=== PATIENT | female | born 1950 | race Caucasian/White ===

== ENCOUNTER → 2018-09-07 19:46 | Outpatient (CLI) | payer MEDICARE, SELFPAY | PROVIDERS: Family Provider Physician Assistant; PCP Physician Assistant; Visit Provider Physician Assistant | DX: G47.33 Obstructive sleep apnea (adult) (pediatric) (principal); R53.83 Other fatigue | CPT/HCPCS: 95811 ==

== ENCOUNTER 2021-04-06 17:14 | Emergency (ER) | payer MEDICARE, SELFPAY ==
[2021-04-06 17:20] VITALS: BP 181/101; PULSE 108; RESP 18; TEMP 35.9; O2SAT 98; BMI 48.6
--- NOTE | 2021-04-06 17:30 | RAD_ITS ---
STUDY: X-RAY - PELVIS AND LEFT HIP REASON FOR EXAM: Female, 70 years old. pain TECHNIQUE: 3 views of the pelvis and hip. COMPARISON: None. FINDINGS: There is a non-specific bowel gas pattern. Normal visualized soft tissue structures. Normal bilateral iliac wings, sacroiliac joints and visualized sacrum. Normal bilateral superior and inferior pubic rami. Normal pubic symphysis. Normal bilateral ischial tuberosities. Degenerative changes of the right hip. Dislocation of left femoral prosthesis with cephalad migration of femoral component. RAD/HIP, UNI W/ Pelvis 2-3 Views IMPRESSION: Left hip prosthesis dislocation. Electronically Signed: Terry Penn MD ([place]) at 18:44 EST , Service support ,
--- NOTE | 2021-04-06 17:30 | RAD_ITS ---
STUDY: X-RAY - LEFT KNEE REASON FOR EXAM: Female, 70 years old. pain TECHNIQUE: 3 view(s) of the knee. COMPARISON: None. FINDINGS: Normal visualized distal femur. Normal visualized proximal tibia and fibula. Normal proximal tibiofibular articulation. Knee replacement in radiographic alignment. The soft tissue structures are unremarkable. RAD/Knee 3 Views IMPRESSION: Left knee replacement without demonstrated fracture or malalignment. Electronically Signed: Terry Penn MD ([place]) at 18:44 EST , Service support ,
--- NOTE | 2021-04-06 17:45 | EDS_ITS ---
HPI History of Present Illness Chief Complaint: Fall Narrative Narrative: Patient is a 70-year-old female who states that about 1 hour prior to arrival she tripped at home. She states she fell from a standing position and sort of landed on her left side/buttocks region. She denies striking her head or any loss of consciousness or blood thinner use. She states she feels like she dislocated her hip. She states that the left hip was replaced in the early 90s. She states that she has not been able to ambulate or move the left leg since the fall and therefore was brought in by EMS for evaluation. [facility] Medical History Degenerative disc disease Diabetes Fibromyalgia History of alcohol abuse Home Medications ascorbic acid (vitamin C) [Vitamin C] 500 mg PO BIDCM 06/03/13 [History Last Taken 08/28/15] cholecalciferol (vitamin D3) [D3-2000] 2,000 unit PO DAILY 06/03/13 [History Last Taken 08/28/15] cyclobenzaprine 10 mg PO BID PRN PRN 06/03/13 [History Last Taken 08/28/15] ferrous sulfate 325 mg PO BIDCM 06/03/13 [History Last Taken 08/28/15] fluoxetine 40 mg PO DAILY 06/03/13 [History Last Taken 08/28/15] glucosamine BGg-[id number]-owwltsvppe 400 mg PO DAILY 06/03/13 [History Last Taken 08/28/15] meclizine [Antivert] 25 mg PO Q6H PRN PRN 06/03/13 [History Last Taken 08/28/15] pantoprazole 20 mg PO DAILY 06/03/13 [History Last Taken 08/28/15] simvastatin 40 mg PO QHS 06/03/13 [History Last Taken 08/28/15] lidocaine 1 patch TOPICAL DAILY 10/11/13 [History Last Taken 08/28/15] hydrocodone-acetaminophen [Vicodin 5-300 mg Tablet] 1 tab PO BID PRN PRN 08/28/15 [History Last Taken 08/28/15] Allergy/AdvReac Type Severity Reaction Status Date / Time lansoprazole [From Prevacid] Allergy Mild Other Verified 04/06/21 17:16 lamotrigine [From Lamictal] AdvReac Mild confusion Verified 04/06/21 17:16 niacin AdvReac Mild jittery Verified 04/06/21 17:16 fentanyl AdvReac Other Verified 04/06/21 17:17 oxycodone [From OxyContin] AdvReac Nausea/Vom/ Verified 04/06/21 17:17 Diarrhea Surgical History (Updated 04/06/21 @ 17:19 by Padma Lacy) History of left hip replacement Social History Smoking Status: Former smoker ROS ROS ED Constitutional Constitutional ED: Denies chills or fever(s) Eyes Eyes: Denies change in vision ENT ENT ED: Denies sore throat Cardiovascular Cardiovascular: Denies chest pain Respiratory/Chest Respiratory/Chest: Denies cough or dyspnea Gastrointestinal Gastrointestinal: Denies abdominal pain, diarrhea, nausea or vomiting Genitourinary Genitourinary ED: Denies dysuria Musculoskeletal Musculoskeletal: Reports arthralgias; Denies back pain or myalgias Integumentary Denies Abrasions or rash Neurologic Neurologic: Denies headache(s) or paresthesias Hematologic/Lymphatic Hematologic/Lymphatic: Denies easy bleeding or easy bruising EXAM Physical Exam Const Vital Signs: 04/06/21 17:20 04/06/21 21:03 04/06/21 21:31 Temperature 96.7 F L Temperature Source Temporal Pulse Rate 108 H 112 H 106 H Pulse Rate [1 (Initial Baseline)] 112 H Pulse Rate [10] 112 H Pulse Rate [4] 115 H Pulse Rate [5] 105 H Pulse Rate [6] 113 H Pulse Rate [7] 108 H Respiratory Rate 18 18 18 Respiratory Rate [1 (Initial Baseline)] 18 Respiratory Rate [10] 19 H Respiratory Rate [4] 31 H Respiratory Rate [5] 26 H Respiratory Rate [6] 18 Respiratory Rate [7] 13 Blood Pressure 181/101 H 171/107 H 142/103 H Blood Pressure [1 (Initial Baseline)] 171/107 H Blood Pressure [10] 132/87 H Blood Pressure [4] 170/89 H Blood Pressure [5] 156/90 H Blood Pressure [6] 143/78 H Blood Pressure Mean 127 102 Pulse Ox 98 98 96 Oxygen Delivery Method Room Air Room Air Room Air Oxygen Delivery Method [1 (Initial Baseline)] Room Air Oxygen Delivery Method [10] Room Air Oxygen Delivery Method [2] Room Air Oxygen Delivery Method [3] Room Air Oxygen Delivery Method [4] Room Air Oxygen Delivery Method [5] Nasal Cannula Oxygen Delivery Method [6] Room Air Oxygen Delivery Method [7] Room Air Oxygen Delivery Method [8] Room Air Oxygen Delivery Method [9] Room Air Fraction of Inspired Oxygen (FIO2) [5] 2 04/06/21 21:36 Temperature Temperature Source Pulse Rate 107 H Pulse Rate [1 (Initial Baseline)] Pulse Rate [10] Pulse Rate [4] Pulse Rate [5] Pulse Rate [6] Pulse Rate [7] Respiratory Rate 16 Respiratory Rate [1 (Initial Baseline)] Respiratory Rate [10] Respiratory Rate [4] Respiratory Rate [5] Respiratory Rate [6] Respiratory Rate [7] Blood Pressure 133/89 H Blood Pressure [1 (Initial Baseline)] Blood Pressure [10] Blood Pressure [4] Blood Pressure [5] Blood Pressure [6] Blood Pressure Mean 103 Pulse Ox 100 Oxygen Delivery Method Room Air Oxygen Delivery Method [1 (Initial Baseline)] Oxygen Delivery Method [10] Oxygen Delivery Method [2] Oxygen Delivery Method [3] Oxygen Delivery Method [4] Oxygen Delivery Method [5] Oxygen Delivery Method [6] Oxygen Delivery Method [7] Oxygen Delivery Method [8] Oxygen Delivery Method [9] Fraction of Inspired Oxygen (FIO2) [5] Positive well nourished and well developed General Appearance ED: well developed HEENT HEENT Narrative: No signs of depressed or basilar skull fracture Eyes PERRL and EOMs intact bilaterally Neck supple Neck Narrative: No bony deformity or step-off of the cervical spine no midline pain on palpation Chest Wall palpation of chest normal Resp normal respiratory effort and clear to auscultation bilaterally Cardio regular rate and regular rhythm GI normal to inspection, nondistended, normoactive bowel sounds, non-tender, non- distended and no masses Auscultation: normoactive bowel sounds Palpation: soft Extremity Extremity Narrative: Pelvis is stable there is no shortening or external rotation of either lower extremity. Patient has pain on palpation along the lateral aspect of the left hip and over top the left knee. There is no obvious bony deformity or joint effusion. Active and passive range of motion is decreased secondary to pain. Remainder of the exam is normal Neuro oriented x3 and CN's II-XII intact bilaterally Sensorium / Orientation: alert Psych mental status grossly normal Skin no rashes or lesions noted Skin Narrative: No abrasions or ecchymosis noted MDM MDM MDM Narrative Medical decision making narrative: Patient presented to the ER after mechanical fall so there is no need for cardiac or syncope work-up. Exam is concerning for a periprosthetic fracture or dislocation so x-rays were obtained. X-ray showed a left hip dislocation. Therefore patient underwent conscious sedation as documented below. Following this there was resolution of the dislocation. Therefore this time as the dislocation has been resolved she can be discharged and follow with orthopedics on an outpatient basis. Patient underwent conscious sedation with a total of 200 mg of propofol and 5 mg of Versed. Manual traction with external rotation was applied to the left leg and there was spontaneous reduction of the dislocation. Postreduction x-ray did confirm proper alignment. The patient was placed in bilateral Ortho-Glass sleeves as she does not have a knee immobilizer that would fit. After valery lication capillary refill remained less than 3 seconds. Patient tolerated the reduction and application of the splint well without complication. Radiography Diagnostic Testing: Clinical Impression(s) from Imaging Studies Hip/Pelvis X-Ray 04/06/21 17:30 IMPRESSION: Left hip prosthesis dislocation. Electronically Signed: Terry Penn MD ([place]) at 18:44 EST , Service support , Knee X-Ray 04/06/21 17:30 IMPRESSION: Left knee replacement without demonstrated fracture or malalignment. Electronically Signed: Terry Penn MD ([place]) at 18:44 EST , Service support , Hip/Pelvis X-Ray 04/06/21 21:10 IMPRESSION: Persistent left hip dislocation status post total hip arthroplasty. Electronically Signed: Jovon Gonzalez DO at 22:39 EST Tel , Service support , Hip/Pelvis X-Ray 04/06/21 21:24 IMPRESSION: Normal left hip alignment status total hip arthroplasty. Electronically Signed: Jovon Gonzalez DO at 22:41 EST Tel , Service support , Discharge Plan Triage Chief Complaint: Fall Other Complaint: Lower Extremity Injury ED Provider: Luis Colin Dx/Rx/DC Orders Clinical Impression: Dislocation of hip, left, closed Instructions: ED Hip Replace Dislocation Reduc Prescriptions: No Action cyclobenzaprine 10 MG tablet 10 mg PO BID PRN PRN (Reason: FIBROMYALGIA) RF: 0 ascorbic acid (vitamin C) [Vitamin C] 500 MG tablet 500 mg PO BIDCM RF: 0 ferrous sulfate 325 MG tablet 325 mg PO BIDCM RF: 0 fluoxetine 20 MG capsule 40 mg PO DAILY RF: 0 cholecalciferol (vitamin D3) [D3-2000] 2,000 UNIT capsule 2,000 unit PO DAILY RF: 0 simvastatin 40 MG tablet 40 mg PO QHS RF: 0 pantoprazole 20 MG tablet 20 mg PO DAILY RF: 0 meclizine [Antivert] 25 MG tablet 25 mg PO Q6H PRN PRN (Reason: DIZZINESS) RF: 0 glucosamine BFo-gzy-dpaialmsxy 1 EACH tablet 400 mg PO DAILY RF: 0 lidocaine 1 PATCH patch 1 patch topical DAILY RF: 0 hydrocodone-acetaminophen [Vicodin] 1 EACH tablet 1 tab PO BID PRN PRN (Reason: Pain) RF: 0 Primary Care Provider: Luis M Fay Referrals: Luis M Fay MD [Primary Care Provider] - Desmond Ferro DO [STAFF PHYSICIAN] - 1 Week Disposition Disposition: Home, Self Care
[2021-04-06] MEDS: Morphine 4 MG/ML Syringe IV (17:54)
[2021-04-06] MEDS: Ondansetron 4 MG/2 ML Vial IV (17:54)
[2021-04-06 21:03] VITALS: BP 132/87; BP 143/78; BP 156/90; BP 170/89; BP 171/107; PULSE 105; PULSE 108; PULSE 112; PULSE 113; PULSE 115; RESP 13; RESP 18; RESP 19; RESP 26; RESP 31; O2SAT 95; O2SAT 96; O2SAT 97; O2SAT 98
--- NOTE | 2021-04-06 21:10 | RAD_ITS ---
INDICATION: POST REDUCTION EXAMINATION/TECHNIQUE: X-RAY - LEFT XR Hip Unilateral with Pelvis when performed; 1 View 1 VIEWS COMPARISON: 04/06/2021 left hip x-rays at 6:29 PM FINDINGS: SOFT TISSUES: No soft tissue swelling or gas. No radiopaque foreign body. BONES/JOINTS: Left total hip arthroplasty shows left hip dislocation with femoral head component overlying the superior rim of the acetabular component, not significant changed compared to prior exam. Acetabular femoral components are otherwise within normal limits with normal positioning within the acetabulum and proximal femur. There is no fracture. RAD/Hip 1 view with Pelvis IMPRESSION: Persistent left hip dislocation status post total hip arthroplasty. Electronically Signed: Jovon Gonzalez DO at 22:39 EST Tel , Service support ,
--- NOTE | 2021-04-06 21:24 | RAD_ITS ---
INDICATION: post reduction EXAMINATION/TECHNIQUE: X-RAY - LEFT XR Hip Unilateral with Pelvis when performed; 1 View 1 VIEWS COMPARISON: 04/06/2021 left hip x-rays at 9:03 PM FINDINGS: SOFT TISSUES: No soft tissue swelling or gas. No radiopaque foreign body. BONES/JOINTS: Normal femoral acetabular alignment status post total hip arthroplasty. No fracture. No evidence of hardware complication. RAD/Hip 1 view with Pelvis IMPRESSION: Normal left hip alignment status total hip arthroplasty. Electronically Signed: Jovon Gonzalez DO at 22:41 EST Tel , Service support ,
[2021-04-06 21:31] VITALS: BP 132/87; BP 142/103; PULSE 106; RESP 18; RESP 20; O2SAT 96; O2SAT 97
[2021-04-06] MEDS: Midazolam 5 MG/ML Syringe IV (21:34)
[2021-04-06] MEDS: Propofol 200 MG/20 ML Vial IV BOLUS (21:34)
[2021-04-06 21:36] VITALS: BP 133/89; PULSE 107; RESP 16; O2SAT 100
[2021-04-06 23:06] VITALS: BP 156/73; PULSE 82; RESP 16; O2SAT 97
== END 2021-04-06 23:08 | disposition home or self-care (01) ==
PROVIDERS: Emergency Provider Emergency Medicine; PCP Family Medicine
DX: T84.021A Dislocation of internal left hip prosthesis, initial encounter (principal); Y79.2 Prosthetic and other implants, materials and accessory orthopedic devices associated with adverse incidents; E11.9 Type 2 diabetes mellitus without complications; Z79.899 Other long term (current) drug therapy; Z87.891 Personal history of nicotine dependence; Z96.652 Presence of left artificial knee joint; M79.7 Fibromyalgia; W01.0XXA Fall on same level from slipping, tripping and stumbling without subsequent striking against object, initial encounter; Y93.9 Activity, unspecified; Y92.009 Unspecified place in unspecified non-institutional (private) residence as the place of occurrence of the external cause; Y99.9 Unspecified external cause status
CPT/HCPCS: 27265; 73501; 73502; 73562; 96374; 96375; 99152; 99153; 99285; A4216; J2405

== ENCOUNTER 2022-01-30 14:00 | Outpatient (RCR) | payer MEDICARE, SELFPAY | END 2022-02-08 23:59 | LOC: DC 14:00 | PROVIDERS: PCP Family Medicine; Referring Provider Family Medicine; Visit Provider Family Medicine | DX: E11.29 Type 2 diabetes mellitus with other diabetic kidney complication (principal) | CPT/HCPCS: 97802; G0108 ==

== ENCOUNTER 2022-02-25 13:02 | Outpatient (RCR) | payer MEDICARE, SELFPAY | END 2022-03-11 23:59 | LOC: DC 13:02 | PROVIDERS: PCP Family Medicine; Referring Provider Family Medicine; Visit Provider Family Medicine | DX: E11.29 Type 2 diabetes mellitus with other diabetic kidney complication (principal) | CPT/HCPCS: 97803 ==

== ENCOUNTER 2022-04-10 14:00 | Outpatient (RCR) | payer MEDICARE, SELFPAY | END 2022-04-10 23:59 | LOC: DC 14:00 | PROVIDERS: PCP Family Medicine; Referring Provider Family Medicine; Visit Provider Family Medicine | DX: E11.29 Type 2 diabetes mellitus with other diabetic kidney complication (principal) | CPT/HCPCS: 97803; G0108 ==

== ENCOUNTER → 2024-12-02 | Outpatient (CLI) | payer MEDICARE, SELFPAY ==
--- NOTE | 2024-12-02 | LES_PTH ---
PATIENT: YARELI VALDOVINOS LOC: [facility] U#:[id number] AGE/SX: 74/F ROOM: RE12/02/[address]: Dr. Tunde Resendiz MD : 1950 BED: DIS: 12/02/2024 SPEC #: [id number] RECD: 12/03/24 06:08 STATUS: ALIX SHIRAZ #: [id number] SHANIA: 12/02/24 00:[address]: Tunde Resendiz DEPT: SURGICAL PATHOLOGY RECD BY: Mahamed Porras ENTERED: 12/03/24 09:53 SP TYPE: Lesion OTHR DR: Dr. Luis M Fay MD Tissues: A - Skin of forearm, NOS B - Skin of face, NOS C - Skin of face, NOS D - Skin of face, NOS Procedures: Surgery Specimen Level IV HEADER OPERATION: Excision of left cheek, right upper orthodox, right preauricular cheek, left forearm lesion PRE-OP DIAGNOSIS: Lesions of left cheek, right upper orthodox, right preauricular cheek, left forearm TISSUE SUBMITTED: A- Left forearm lesion, B- Right cheek lesion, C- Right upper orthodox lesion, D- Left cheek shave lesion MICROSCOPIC DIAGNOSIS A. Forearm, left, "lesion", excision: - Solar lentigo. B. Cheek, right, "lesion", excision: - Seborrheic keratosis. C. [place], right, upper, "lesion", excision: - Seborrheic keratosis. D. Cheek, left, "lesion", excision: - Actinically damaged skin with seborrheic keratosis and focal basilar pigmentation consistent with solar lentigo. - Negative for malignancy - see note. Note: The block has been stepped through. MICROSCOPIC DESCRIPTION Slides are reviewed. GROSS DESCRIPTION Received in 4 formalin containers labeled with the patient's name and date of . Designated as: A. "Left forearm lesion" is a 0.7 x 0.7 x <0.1 cm ovoid skin shave devoid of orientation. The resection margin is inked black. There is a possible 0.4 x 0.3 cm light brown lesion abutting the peripheral edge. The specimen is trisected and entirely submitted in 1 cassette. B. "Right cheek lesion" is a 1.4 x 0.7 cm alvarez skin ellipse devoid of orientation, excised to a depth of 0.3 cm. The resection margin is inked blue. There is a 0.7 x 0.6 cm alvarez slightly raised alvarez lesion with central, brown discoloration located 0.1 cm from the peripheral edge. The specimen is serially sectioned and entirely submitted in 1 cassette. C. "Right upper orthodox lesion" is a 0.4 x 0.3 x 0.2 cm alvarez and somewhat bosselated skin shave devoid of orientation. The resection margin is inked green. The specimen is bisected and entirely submitted in 1 cassette. D. "Left cheek shave lesion" is a 0.6 x 0.3 x 0.2 cm alvarez to light brown skin shave devoid of orientation. The resection margin is inked orange. The specimen is bisected and entirely submitted in 1 cassette. AK 12/03/2024 CPT:29911b4
--- OUTSIDE RECORDS SUMMARY | 2024-12-03 06:14 | XMS RPT_ITS | CCD ---
Author Organization [facility] Care Team Providers Care Last Putter Away Name Role Phone LUIS M JOHNSON MD Primary Care Physician Luis M Johnson MD Primary Care Provider Luis M Johnson MD Primary Care Provider Luis M Johnson MD Primary Care Provider Luis M Johnson MD Primary Care Provider Luis M Johnson MD Primary Care Provider Michelle ECHOCARDIOGRAPHY TECHNOLOGIST.Teddy AMIN Unavailable Summer Telles PA-C Unavailable Luis M Johnson MD Primary Care Provider Michelle ECHOCARDIOGRAPHY TECHNOLOGIST.Teddy AMIN Unavailable Summer Telles PA-C Unavailable [phone] TEDDY COX Referring Unavailable LUIS M JOHNSON Primary Care Unavailable TEDDY COX Attending Unavailable LUIS M JOHNSON Primary Care Unavailable LUIS M JOHNSON Referring Unavailable LUIS M JOHNSON Primary Care Unavailable LUIS M JOHNSON Referring Unavailable LUIS M JOHNSON Primary Care Unavailable LUIS M JOHNSON Attending Unavailable LUIS M JOHNSON Primary Care Unavailable LUIS M BAEZ Referring Unavailable LUIS M JOHNSON Primary Care Unavailable LUIS M JOHNSON Primary Care Unavailable Dr. Luis M Johnson MD Primary Care Provider Dr. Luis M Johnson MD Referring Provider Dr. Tunde Resendiz MD Attending Provider Luis M Johnson Referring Unavailable Luis M Johnson Primary Care Unavailable Tunde Resendiz Attending Unavailable Allergies Allergy Classification Reported Allergen(s) Allergy Type Date of Onset Reaction(s) Facility Aminoketones (1 source) buPROPion Drug Allergy 5 Intolerance [facility] Anti-Epileptic Agents (1 source) lamoTRIgine Drug Allergy 0 Mental Status Change [facility] Antihistamines (1 source) hydrOXYzine Drug Allergy 1 Mental Status Change [facility] Work Phone: famciclovir (1 source) famciclovir Drug Allergy 2 Rash [facility] Niacin (1 source) Niacin Drug Allergy 6 Other: See Comments [facility] Opioid Agonists (2 sources) fentaNYL Drug Allergy 4 Mental Status Change, Other: See Comments [facility] pregabalin (1 source) pregabalin Drug Allergy 5 Other: See Comments [facility] Proton Pump Inhibitors (1 source) lansoprazole Drug Allergy 5 Unknown [facility] (20 sources) buPROPion; Translations: [BUPROPION HCL] Drug Allergy 5 Intolerance [facility] Work Phone: (20 sources) famciclovir; Translations: [FAMCICLOVIR] Drug Allergy 2 Rash [facility] Work Phone: (20 sources) fentaNYL; Translations: [FENTANYL] Drug Allergy 4 Mental Status Change [facility] Work Phone: (20 sources) hydrOXYzine; Translations: [HYDROXYZINE] Drug Allergy 1 Mental Status Change [facility] Work Phone: (20 sources) lamoTRIgine; Translations: [LAMOTRIGINE] Drug Allergy 0 Mental Status Change [facility] Work Phone: (20 sources) lansoprazole; Translations: [LANSOPRAZOLE] Drug Allergy 5 Unknown [facility] Work Phone: Comment on above: confusion (20 sources) Niacin; Translations: [NIACIN] Drug Allergy 6 Other: See Comments [facility] Work Phone: (20 sources) oxyCODONE; Translations: [OXYCODONE HCL] Drug Allergy 5 Other: See Comments [facility] Work Phone: (20 sources) pregabalin; Translations: [PREGABALIN] Drug Allergy 5 Other: See Comments [facility] Work Phone: (5 sources) oxyCODONE Drug Allergy 1 Nausea/Vom/Diar calixto [facility] (1 source) fentaNYL Drug Allergy 5 [facility] Repository (1 source) lamoTRIgine Drug Allergy 5 [facility] Repository (1 source) lansoprazole Drug Allergy 5 [facility] Rep[facility] (1 source) Niacin Drug Allergy 5 [facility] Repository (1 source) oxyCODONE Drug Allergy 5 [facility] Repository Medications Current Medications Medication Drug Class(es) Dates Sig (Normalized) Sig (Original) acetaminophen 300 mg / HYDROcodone bitartrate 5 mg oral tablet (15 sources) Opioid Agonist Start: 08-28-2015 Hydrocodone-Acetam inophen (Vicodin 5-300 Mg Tablet) 1 EACH tablet Active 1 {tbl} PO TWICE DAILY NEEDED as needed for Pain August 28, 2015 5:06pm Start: 10-11-2013 End: 08-28-2015 Hydrocodone-Acetaminophen (V icodin 5-300 Mg Tablet) 1 EACH tablet Discontinued 1 - 2 {tbl} PO EVERY 4 HOURS NEEDED as needed for Pain October 11, 2013 12:00am August 28, 2015 5:06pm Start: 06-03-2013 End: 06-15-2013 Hydrocodone-Acetaminophen (V icodin 5-300 Mg Tablet) 1 EACH tablet Discontinued 1 {tbl} PO EVERY 4 HOURS NEEDED as needed for Pain June 03, 2013 1:00am June 15, 2013 11:39am [id number] 200 actuat albuterol 0.09 mg/actuat metered dose inhaler (20 sources) beta2-Adrenergic Agonist Start: 11-19-2024 Albut arnoldo Sulfate 90 mcg/actuation HFA aerosol inhaler Active 2 NMA INHALATION EVERY 4 HOURS as needed November 19, 2024 12:00am Start: 01-12-2021 End: 10-19-2024 take 2 puff(s) by inhalation every four hours as needed albuterol HFA (PROVENTIL HFA, VENTOLIN HFA) 90 mcg/actuation inhaler Inhale 2 puffs as instructed every 4 hours as needed. 1 each 1 10/19/2024 Active Comment on above: Inhale 2 Puffs as in structed every 4 hours as needed. amLODIPine 10 mg oral tablet (20 sources) Dihydropyridine Calcium Channel Cole Start: take 1 tablet by mouth once daily Amlodipine 10 mg tablet Active 10 mg PO daily November 19, 2024 12:00am Start: 03-31-2023 End: 01-26-2024 take 1 tablet by mouth once daily amLODIPine (NORVASC) 10 mg tablet Indications: Hypertension, essential Take 1 tablet by mouth once daily. 90 tablet 3 01/26/2024 Active Start: 10-04-2022 End: 03-29-2023 take 1 tablet by mouth once daily amLODIPine (NORVASC) 10 mg tablet Indications: Hypertension, essential Take 1 tablet by mouth once daily. 30 tablet 2 12/27/2022 03/29/2023 Discontinued Start: 07-31-2022 take 1 tablet by nu th once daily amLODIPine (NORVASC) 10 mg tablet Indications: Hypertension, essential Take 1 tablet by mouth once daily. 30 tablet 1 07/31/2022 Active Start: 07-09-2022 take 1 tablet by nu th once daily amLODIPine (NORVASC) 10 mg tablet Indications: Hypertension, essential Take 1 tablet by mouth once daily. 30 tablet 0 07/09/2022 Active Start: 06-11-2022 End: 07-09-2022 take 1 tablet by mouth once daily amLODIPine (NORVASC) 5 mg tablet Indications: Hypertension, essential Take 1 tablet by mouth once daily. 30 tablet 0 06/11/2022 07/09/2022 Discontinued Comment on above: Take 1 tablet by nu th once daily. aspirin 81 mg delayed release oral tablet (20 sources) Platelet Aggregation Inhibitor, Nonsteroidal Anti-inflammatory Drug Start: take 1 tablet by mouth once daily aspirin, enteric coated (ADULT ASPIRIN REGIMEN) 81 mg EC tablet Take 1 tablet by mouth once daily. 08/05/2017 Active Comment on above: Take 1 tablet by nu th once daily. atorvastatin 40 mg oral tablet (20 sources) HMG-CoA Reductase Inhibitor Start: take 1 tablet by mouth once daily Atorvastatin 40 mg tablet Active 40 mg PO daily November 19, 2024 12:00am Start: 10-10-2021 End: 10-26-2024 take 1 tablet by mouth once daily atorvastatin (LIPITOR) 40 mg tablet Take 1 tablet by mouth once daily. 90 tablet 1 10/26/2024 Active Start: 04-06-2021 take 1 tablet by nu th once daily atorvastatin (LIPITOR) 40 mg tablet Take 1 tablet by mouth once daily. 90 tablet 1 04/06/2021 Active Comment on above: Take 1 tablet by nu once daily. busPIRone hydrochloride 15 mg oral tablet (20 sources) Start: 11-19-2024 take 1 tablet by mouth twice daily Buspirone 15 mg tablet Active 15 mg PO TWICE A DAY November 19, 2024 12:00am Start: 10-10-2021 End: 10-26-2024 take 1 tablet by mouth twice daily busPIRone (BUSPAR) 15 mg tablet Take 1 tablet by mouth two times a day. 180 tablet 1 10/26/2024 Active Start: 04-06-2021 take 1 tablet by nu th twice daily busPIRone (BUSPAR) 15 mg tablet Indications: Generalized anxiety disorder Take 1 tablet by mouth twice daily. 180 tablet 1 04/06/2021 Active Comment on above: Take 1 tablet by nu th twice daily. Take 1 tablet by nu th two times a day. cholecalciferol 0.025 mg oral tablet (20 sources) Vitamin D Start: 08-13-19 take 1 tablet by mouth once daily, then take 4 tablets by mouth once daily cholecalciferol (VITAMIN D) 1,000 unit tab tablet Take 1 tablet by mouth once daily. Take 4 tablets daily 08/13/2019 Active Start: 06-03-2013 Cholecalcifero l (Vitamin D3) (D3-2000) 2,000 UNIT capsule Active 2000 U PO DAILY June 03, 2013 1:00am Comment on above: Take 1 tablet by nu th once daily. Take 4 tablets daily chondroitin sulfates 400 mg / glucosamine hydrochloride 500 mg / methylsulfonylmethane 83 mg oral tablet (5 sources) Start: 2013 take 1 tablet by mouth once daily Glucosamine Cpu-Rso-Snjnrsdgbv 1 EACH tablet Active 400 mg PO DAILY June 03, 2013 1:00am COMPOUNDED PRESCRIPTION (20 sources) Start: 2016 COMPOUNDED PRESCRIPTION Indications: Leg swelling Compression stockings, thigh high 15-20mmHg Dx: leg edema 3 Each 1 08/14/2016 Active Comment on above: Compression stocking s, thigh high 15-20mmHg Dx: leg edema cyclobenzaprine hydrochloride 10 mg oral tablet (20 sources) Muscle Relaxant Start: 2013 End: 2024 take 1 tablet by mouth twice daily as needed Cyclobenzaprine 10 MG tablet Active 10 mg PO TWICE DAILY NEEDED as needed for FIBROMYALGIA June 03, 2013 1:00am Comment on above: Take 1 tablet by nu th twice daily as needed. Take 1 tablet by nu th two times a day as needed. doxycycline hyclate 100 mg oral tablet (1 source) Tetracycline-clas s Drug Start: 2024 End: 2024 take 1 tablet by mouth twice daily doxycycline (VIBRA-TABS) 100 mg tablet Take 1 tablet by mouth two times a day for 7 days. 14 tablet 07/03/2024 07/10/2024 Active ferrous sulfate 325 mg oral tablet (5 sources) Start: 2013 take 1 tablet by mouth twice daily at mealtime Ferrous Sulfate 325 MG tablet Active 325 mg PO TWICE DAILY WITH MEALS June 03, 2013 1:00am FLUoxetine 20 mg oral capsule (20 sources) Serotonin Reuptake Inhibitor Start: 2013 End: 2024 take 2 capsules by mouth once daily FLUoxetine (PROZAC) 20 mg capsule Take 2 capsules by mouth once daily. 180 capsule 1 10/26/2024 Active Start: 06-03-2013 take 40 mg by mouth once daily Fluoxetine Active 40 MG PO DAILY June 03, 2013 12:00am Comment on above: Take 2 capsules by m outh once daily. fluticasone propionate 0.05 mg/actuat metered dose nasal spray (20 sources) Corticosteroid Start: 05-21-19 End: 06-11-19 take 2 spray(s) by mouth once daily fluticasone (FLONASE) 50 mcg/actuation nasal spray Indications: Environmental allergies Use 2 Sprays in each nostril once daily. Rinse mouth after use. 1 Each 06/11/2022 Active Comment on above: Use 2 Sprays in each nostril once daily. Rinse mouth after use. glimepiride 4 mg oral tablet (20 sources) Sulfonylurea Start: 11-20-19 take 1 tablet by mouth twice daily Glimepiride 4 mg tablet Active 4 mg PO TWICE A DAY November 19, 2024 12:00am Start: 10-10-2021 End: 10-26-2024 take 1 tablet by mouth twice daily at mealtime glimepiride (AMARYL) 4 mg tablet Take 1 tablet by mouth two times a day with meals. 180 tablet 1 10/26/2024 Active Start: 04-06-2021 take 1 tablet by nu th twice daily at mealtime glimepiride (AMARYL) 4 mg tablet Take 1 tablet by mouth twice daily with meals. 180 tablet 1 04/06/2021 Active Comment on above: Take 1 tablet by nu th twice daily with meals. Take 1 tablet by nu th two times a day with meals. lidocaine 0.05 mg/mg medicated patch (5 sources) Antiarrhythmic, Amide Local Anesthetic Start: 10-11-2013 Lidocaine 1 PATCH patch Active 1 NMA TOPICAL DAILY October 11, 2013 12:00am Start: 10-11-2013 apply 1 dose topically once da br[place] Lidocaine Active 1 PATCH TOPICAL DAILY October 10, 2013 11:00pm lisinopril 30 mg oral tablet (20 sources) Angiotensin Converting Enzyme Inhibitor Start: 11-19-2024 take 1 tablet by mouth once daily Lisinopril 30 mg tablet Active 30 mg PO daily November 19, 2024 12:00am Start: 03-31-2023 End: 01-26-2024 take 1 tablet by mouth once daily lisinopril (ZESTRIL) 30 mg tablet Indications: Hypertension, essential Take 1 tablet by mouth once daily. 90 tablet 3 01/26/2024 Active Start: 09-30-2022 End: 03-29-2023 take 1 tablet by mouth once daily lisinopril (ZESTRIL) 30 mg tablet Indications: Hypertension, essential Take 1 tablet by mouth once daily. 30 tablet 1 01/28/2023 03/29/2023 Discontinued Start: 07-31-2022 take 1 tablet by nu th once daily lisinopril (ZESTRIL) 30 mg tablet Indications: Hypertension, essential Take 1 tablet by mouth once daily. 30 tablet 1 07/31/2022 Active Start: 05-14-2022 take 1 tablet by nu th once daily lisinopril (ZESTRIL,PRINIVIL) 30 mg tablet Indications: Hypertension, essential Take 1 tablet by mouth once daily. 30 tablet 1 05/14/2022 Active Start: 04-12-2022 take 1 tablet by nu th once daily lisinopril (ZESTRIL, PRINIVIL) 20 mg tablet Take 1 tablet by mouth once daily. 90 tablet 1 04/12/2022 Active Comment on above: Take 1 tablet by nu th once daily. meclizine hydrochloride 25 mg oral tablet (20 sources) Antiemetic Start: 06-03-19 14 take 1 tablet by mouth every six hours as needed for dizziness Meclizine (Antivert) 25 MG tablet Active 25 mg PO EVERY 6 HOURS NEEDED as needed for DIZZINESS June 03, 2013 1:00am Comment on above: Take 1 tablet by nu th every 6 hours as needed (dizziness). meloxicam 15 mg oral tablet (20 sources) Nonsteroidal Anti-inflammatory Drug Start: 11-20-19 25 take 1 tablet by mouth once daily Meloxicam 15 mg tablet Active 15 mg PO daily November 19, 2024 12:00am Start: 03-31-2023 End: 01-26-2024 take 1 tablet by mouth once daily at mealtime meloxicam (MOBIC) 15 mg tablet Take 1 tablet by mouth once daily. With food. 90 tablet 3 01/26/2024 Active Start: 09-30-2022 End: 03-29-2023 take 1 tablet by mouth once daily at mealtime meloxicam (MOBIC) 15 mg tablet Take 1 tablet by mouth once daily. With food. 90 tablet 1 09/30/2022 03/29/2023 Discontinued Start: 10-10-2021 End: 03-29-2022 take 1 tablet by mouth once daily at mealtime meloxicam (MOBIC) 15 mg tablet Take 1 tablet by mouth once daily. With food. 90 tablet 1 03/29/2022 Active Comment on above: Take 1 tablet by nu th once daily. With food. 24 hr metFORMIN hydrochloride 500 mg extended release oral tablet (20 sources) Biguanide Start: 11-19-2024 Metformin 500 mg tablet extended release 24 hr Active 1000 mg PO TWICE A DAY November 19, 2024 12:00am Start: 10-10-2021 End: 10-26-2024 take 2 tablets by mouth twice daily metFORMIN ER (GLUCOPHAGE XR) 500 mg 24 hr tablet Take 2 tablets by mouth two times a day. 360 tablet 1 10/26/2024 Active Start: 04-06-2021 take 2 tablets by mo uth twice daily metFORMIN ER (GLUCOPHAGE XR) 500 mg 24 hr tablet Indications: Type 2 diabetes mellitus without complication, without long-term current use of insulin (HCC) Take 2 tablets by mouth twice daily. 360 tablet 1 04/06/2021 Active Comment on above: Take 2 tablets by mo uth twice daily. Take 2 tablets by mo uth two times a day. Multivitamin capsule (20 sources) take 1 capsule by mouth once daily Multivitamin capsule Take 1 capsule by mouth once daily. Active take 1 capsule by mouth once chilo ly Multivitamin capsule Take 1 capsule by mouth once daily. 0 Active Comment on above: Take 1 capsule by mo ut once daily. pantoprazole 20 mg delayed release oral tablet (20 sources) Proton Pump Inhibitor Start: 06-03-19 End: 10-20-19 take 1 tablet by mouth once daily Pantoprazole 20 MG tablet Active 20 mg PO DAILY June 03, 2013 1:00am Comment on above: take 1 tablet daily 1/2 hour before breakfast on an empty stomach pioglitazone 45 mg oral tablet (20 sources) Peroxisome Proliferator Receptor alpha Agonist, Peroxisome Proliferator Receptor gamma Agonist, Thiazolidinedione Start: 10-11-19 End: 11-01-19 take 1 tablet by mouth once daily pioglitazone (ACTOS) 45 mg tablet Take 1 tablet by mouth once daily. 90 tablet 1 10/31/2022 Active Start: 04-06-2021 take 1 tablet by nu th once daily pioglitazone (ACTOS) 45 mg tablet Take 1 tablet by mouth once daily. 90 tablet 1 04/06/2021 Active Comment on above: Take 1 tablet by nu th once daily. simvastatin 40 mg oral tablet (5 sources) HMG-CoA Reductase Inhibitor Start: 4 take 1 tablet by mouth at bedtime Simvastatin 40 MG tablet Active 40 mg PO AT BEDTIME June 03, 2013 1:00am SITagliptin 100 mg oral tablet (20 sources) Dipeptidyl Peptidase 4 Inhibitor Start: 5 take 1 tablet by mouth once daily Sitagliptin Phosphate (Januvia) 100 mg tablet Active 100 mg PO daily November 19, 2024 12:00am Start: 10-21-2023 End: 10-19-2024 take 1 tablet by mouth once daily SITagliptin phosphate (JANUVIA) 100 mg tablet Take 1 tablet by mouth once daily. 90 tablet 1 10/19/2024 Active vitamin b12 0.5 mg oral tablet (1 source) Vitamin B12 Start: 10-26-2024 take 1 tablet by mouth once daily cyanocobalamin (B-12 DOTS) 500 mcg tablet Take 1 tablet by mouth once daily. 10/26/2024 Active Completed/Discontinued Medications Medication Drug Class(es) Dates Sig (Normalized) Sig (Original) ascorbic acid 1000 mg oral tablet (20 sources) Vitamin C Start: 08-13-2019 End: 10-17-2023 take 1 tablet by mouth once daily Ascorbic Acid (VITAMIN C) 1,000 mg tablet Take 1 tablet by mouth once daily. 0 08/13/2019 10/17/2023 Discontinued (Discontinued by Patient) Start: 06-03-2013 [facility] Ascorbic Acid (Vitamin C) (Vitamin C) 500 MG tablet Active 500 mg PO TWICE DAILY WITH MEALS June 03, 2013 1:00am Comment on above: Take 1 tablet by nu once daily. bifidobacterium bifidum [id number] unt / bifidobacterium longum [id number] unt oral capsule (20 sources) Start: 019 End: 024 take 1 capsule by mouth once daily bifidobacteri bifid.and longum (FLORAJEN BIFIDOBLEND) 460 mg (9-1 bill.cell) cap Indications: Acute otitis media, left Take 1 capsule by mouth once daily. 30 capsule 1 04/12/2019 10/17/2023 Discontinued (Discontinued by Patient) Comment on above: Take 1 capsule by mo [facility] once daily. 24 hr nicotine 0.583 mg/hr transdermal system (5 sources) Cholinergic Nicotinic Agonist Start: 014 End: 014 apply 14 mg transdermal route at bedtime Nicotine 14 MG patch Discontinued 14 mg TRANSDERM. AT BEDTIME June 03, 2013 1:00am June 15, 2013 11:38am omega-3 fatty acids 1,000 mg cap (20 sources) Start: 017 End: 024 take 2 capsules by mouth once daily omega-3 fatty acids 1,000 mg cap Take 2 capsules by mouth once daily. 0 10/25/2016 04/19/2024 Discontinued Start: 10-25-2016 take 2 capsules by m outh once daily omega-3 fatty acids 1,000 mg cap Take 2 capsules by mouth once daily. 0 10/25/2016 Active Comment on above: Take 2 capsules by m outh once daily. abuse-deterrent 12 hr oxyCODONE hydrochloride 20 mg extended release oral tablet (5 sources) Opioid Agonist Start: 4 End: 4 take 1 tablet by mouth every twelve hours Oxycodone (Oxycontin) 20 MG tablet Discontinued 20 mg PO Q12H June 03, 2013 1:00am June 15, 2013 11:37am Problems Active Problems Problem Classification Problem Date Documented Date Episodic/Chronic Adjustment disorders (20 sources) Adjustment disorder; Translations: [Adjustment disorder, unspecified] Onset: 10-29-2011 10-02-2016 Chronic Administrative/social admission (20 sources) Advance directive discussed with patient; Translations: [Other specified counseling] Onset: 10-10-2021 10-10-2021 Episodic Alcohol-related disorders (20 sources) Alcohol dependence; Translations: [Alcohol dependence, in remission] Onset: 10-02-2016 10-02-2016 Chronic Allergic reactions (1 source) Environmental allergy; Translations: [Other allergy status, other than to drugs and biological substances] Episodic Anxiety disorders (20 sources) Generalized anxiety disorder; Translations: [Generalized anxiety disorder] Onset: 03-13-2006 10-02-2016 Chronic Diabetes mellitus with complications (20 sources) Type 2 diabetes mellitus; Translations: [Type 2 diabetes mellitus with other diabetic kidney complication] Onset: 03-01-2015 Resolved: 05-28-2015 04-06-2021 Chronic Diabetes mellitus without complication (1 source) Type 2 diabetes mellitus without complications; Translations: [Diabetic eye exam (HCC)] Onset: 11-07-2023 Chronic Disorders of lipid metabolism (20 sources) Mixed hyperlipidemia; Translations: [Mixed hyperlipidemia] Onset: 02-12-2005 10-02-2016 Chronic Esophageal disorders (20 sources) Gastroesophageal reflux disease without esophagitis; Translations: [Gastro-esophageal reflux disease without esophagitis] Onset: 10-02-2016 10-02-2016 Chronic Essential hypertension (20 sources) Essential hypertension; Translations: [Essential (primary) hypertension] Onset: 04-12-2022 Chronic Glaucoma (20 sources) Glaucoma; Translations: [Unspecified glaucoma] 11-22-2019 Chronic Immunizations and screening for infectious disease (2 sources) Vaccination needed; Translations: [Encounter for immunization] Onset: 10-19-2024 10-19-2024 Episodic Joint disorders and dislocations; trauma-related (5 sources) Closed traumatic dislocation of hip; Translations: [Unspecified dislocation of left hip, initial encounter] 04-14-2021 Episodic Miscellaneous mental health disorders (1 source) Psychogenic overeating; 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 Mood disorders (20 sources) Recurrent major depression in partial remission; Translations: [Major depressive disorder, recurrent, in partial remission] Onset: 05-30-2005 10-02-2016 Chronic Neoplasms of unspecified nature or uncertain behavior (7 sources) Neoplasm of uncertain behavior of skin of face; Translations: [Neoplasm of uncertain behavior of skin] Onset: 10-19-2024 10-20-2024 Episodic Osteoarthritis (20 sources) Arthritis of right knee; Translations: [Unilateral primary osteoarthritis, right knee] Onset: 12-23-2012 10-02-2016 Chronic Other bone disease and musculoskeletal deformities (1 source) Other specified disorders of bone density and structure, unspecified site; Translations: [Osteopenia, senile] Onset: 10-19-2024 Episodic Other circulatory disease (1 source) Elevated blood-pressure reading without diagnosis of hypertension; Translations: [Elevated blood-pressure reading, without diagnosis of hypertension] Episodic Other diseases of veins and lymphatics (20 sources) Stasis dermatitis of right lower extremity due to peripheral venous hypertension; Translations: [Chronic venous hypertension (idiopathic) with inflammation of right lower extremity] Onset: 04-02-2016 10-02-2016 Chronic Other lower respiratory disease (2 sources) Cough; Translations: [Acute cough] 07-03-2024 Episodic Other nervous system disorders (20 sources) Chronic pain syndrome; Translations: [Chronic pain syndrome] Onset: 11-26-2015 11-22-2019 Chronic Other nervous system disorders (1 source) Chronic pain syndrome; Translations: [Chronic pain syndrome] Onset: 11-22-2019 Chronic Other non-traumatic joint disorders (10 sources) Shoulder pain; Translations: [Pain in right shoulder] Onset: 10-10-2021 10-10-2021 Episodic Other non-traumatic joint disorders (3 sources) Pain in right hip joint; Translations: [Pain in right hip] Episodic Other nutritional; endocrine; and metabolic disorders (20 sources) Body mass index 40+ - severely obese; Translations: [Morbid (severe) obesity due to excess calories] Onset: 10-02-2016 04-03-2021 Chronic Other nutritional; endocrine; and metabolic disorders (10 sources) Morbid obesity; Translations: [Morbid (severe) obesity due to excess calories] Onset: 03-28-2023 03-17-2023 Chronic Other nutritional; endocrine; and metabolic disorders (3 sources) Hypercalcemia; Translations: [Hypercalcemia] 03-18-2023 Chronic Other nutritional; endocrine; and metabolic disorders (1 source) Severe obesity; Translations: [Class 3 severe obesity with body mass index (BMI) of 40.0 to 44.9 in adult, unspecified obesity type, unspecified whether serious comorbidity present (HCC)] 04-19-2024 Chronic Other nutritional; endocrine; and metabolic disorders (2 sources) Morbid (severe) obesity due to excess calories; Translations: [Morbid obesity with body mass index (BMI) of 45.0 to 49.9 in adult (HCC)] Onset: 04-03-2021 Chronic Other nutritional; endocrine; and metabolic disorders (1 source) Body mass index (BMI) 45.0-49.9, adult; Translations: [Morbid obesity with body mass index (BMI) of 45.0 to 49.9 in adult (HCC)] Onset: 04-03-2021 Chronic Other nutritional; endocrine; and metabolic disorders (1 source) Body mass index (BMI) 40.0-44.9, adult; Translations: [Class 3 severe obesity with body mass index (BMI) of 40.0 to 44.9 in adult, unspecified obesity type, unspecified whether serious comorbidity present (HCC)] Onset: 04-19-2024 Chronic Other nutritional; endocrine; and metabolic disorders (1 source) Hypercalcemia; Translations: [Hypercalcemia] Onset: 11-07-2023 Chronic Other upper respiratory infections (1 source) Chronic sinusitis; Translations: [Chronic sinusitis, unspecified] 07-03-2024 Chronic Other upper respiratory infections (1 source) Sore throat symptom; Translations: [Acute pharyngitis, unspecified] 07-03-2024 Episodic Residual codes; unclassified (20 sources) Obstructive sleep apnea syndrome; Translations: [Obstructive sleep apnea (adult) (pediatric)] Onset: 07-04-2010 05-07-2021 Chronic Residual codes; unclassified (1 source) Obstructive sleep apnea (adult) (pediatric); Translations: [WHIT (obstructive sleep apnea)] Onset: 05-07-2021 Chronic Spondylosis; intervertebral disc disorders; other back problems (20 sources) Degeneration of lumbar intervertebral disc; Translations: [Other intervertebral disc degeneration, lumbar region] Onset: 07-26-2014 10-02-2016 Chronic Unclassified (1 source) APPOINTMENT CANCELLED 11-27-2022 Unclassified (1 source) Acute cough; Translations: [Acute cough] Onset: 07-03-2024 Unclassified (1 source) Class 3 severe obesity with body mass index (BMI) of 40.0 to 44.9 in adult, unspecified obesity type, unspecified whether serious comorbidity present (HCC); Translations: [Class 3 severe obesity with body mass index (BMI) of 40.0 to 44.9 in adult, unspecified obesity type, unspecified whether serious comorbidity present (HCC)] Onset: 04-19-2024 Unclassified (2 sources) Neoplasm Unclassified (4 sources) D49.9 - Neoplasm of unspecified behavior of unspecified site Past or Other Problems Problem Classification Problem Date Documented Da te Episodic/Chronic Conditions associated with dizziness or vertigo (20 sources) Benign paroxysmal positional vertigo; Translations: [Benign paroxysmal vertigo, unspecified ear] Onset: 11-22-2019 11-22-2019 Episodic Genitourinary symptoms and ill-defined conditions (1 source) Proteinuria, unspecified; Translations: [Type 2 diabetes mellitus with diabetic microalbuminuria, unspecified whether prison insulin use (HCC)] Onset: 04-06-2021 Episodic Nutritional deficiencies (20 sources) Serum vitamin B12 low; Translations: [Deficiency of other specified B group vitamins] Onset: 10-10-2021 10-10-2021 Episodic Other aftercare (20 sources) Patient encounter status; Translations: [Other long term care social worker (current) drug therapy] Onset: 08-05-2017 06-02-2018 Episodic Other aftercare (1 source) Other prison (current) drug therapy; Translations: [Medication management] Onset: 06-02-2018 Episodic Other and unspecified benign neoplasm (20 sources) History of polyp of colon; Translations: [Personal history of colonic polyps] Onset: 08-19-2018 11-29-2020 Episodic Other bone disease and musculoskeletal deformities (20 sources) Disorder of skeletal system; Translations: [Disorder of bone, unspecified] Onset: 06-07-2008 10-02-2016 Episodic Other bone disease and musculoskeletal deformities (20 sources) Senile osteopenia; Translations: [Other specified disorders of bone density and structure, unspecified site] Onset: 06-07-2008 10-17-2023 Episodic Other connective tissue disease (20 sources) Fibromyalgia; Translations: [Fibromyalgia] Onset: 06-06-2009 07-25-2020 Episodic Other connective tissue disease (20 sources) Pain in left thumb; Translations: [Pain in left finger(s)] Onset: 04-06-2021 04-06-2021 Episodic Other connective tissue disease (20 sources) Pain of left hand; Translations: [Pain in left hand] Onset: 10-10-2021 10-10-2021 Episodic Other connective tissue disease (20 sources) Trochanteric bursitis of left hip; Translations: [Trochanteric bursitis, left hip] Onset: 03-28-2023 Resolved: 10-19-2024 03-17-2023 Episodic Other connective tissue disease (1 source) Fibromyalgia; Translations: [Fibromyalgia] Onset: 07-25-2020 Episodic Other non-traumatic joint disorders (20 sources) Bilateral chronic pain of upper limbs; Translations: [Pain in right shoulder] Onset: 10-10-2021 11-04-2021 Episodic Other screening for suspected conditions (not mental disorders or infectious disease) (4 sources) Mammography abnormal; Translations: [Other abnormal and inconclusive findings on diagnostic imaging of breast] Onset: 08-05-2017 03-21-2023 Episodic Other skin disorders (20 sources) Foot callus; Translations: [Corns and callosities] Onset: 11-29-2020 11-29-2020 Episodic Other skin disorders (1 source) Corns and callosities; Translations: [Foot callus] Onset: 11-29-2020 Episodic Residual codes; unclassified (20 sources) Family history of cancer of colon; Translations: [Family history of malignant neoplasm of digestive organs] Onset: 08-05-2017 08-05-2017 Episodic Screening and history of mental health and substance abuse codes (20 sources) Ex-smoker; Translations: [Personal history of nicotine dependence] Onset: 03-17-2019 03-17-2019 Episodic Spondylosis; intervertebral disc disorders; other back problems (20 sources) Low back pain; Translations: [Lumbago] Onset: 05-19-2015 10-02-2016 Episodic Sprains and strains (20 sources) Sprain of sacroiliac region; Translations: [Strain of muscle, fascia and tendon of lower back, initial encounter] Onset: 08-27-2013 10-02-2016 Episodic Results Test Name Value Interpretation Reference Range Facility Plastic Surgery Visit Report on 11-19-2024 Plastic Surgery Visit Report [facility] Plastic Reconstructive Surgery [address], [address] [place] [address] OFFICE VISIT Date of Service: 11/19/24 MR#: [id number] Acct: [id number] Name: BEVERLY GIVENS Rep #: [id number] : 1950 Provider: Dr. Tunde Resendiz MD Age/Sex: 74/F Location: [facility] Status: Signed Intake Vital Signs 3 04/10/22 16:26 11/19/24 13:25 Height 5 ft 6 in 56 ft Weight: 282 lb BMI 0.4 BP 113/68 Position Sitting Respiration 18 Pulse 118 H Temp 97.8 F Temp Source Oral Pulse Oximetry (%) 97 Oxygen Delivery Method room air Intake Visit Reasons: NEOPLASM R EAR Chief Complaint: neoplasm right taoism, right cheek, and left cheek area Is patient in pain?: Yes (5/10) Allergies lansoprazole (From Prevacid) Allergy (Mild, Verified 11/19/24 13:26) Other lamotrigine (From Lamictal) Adverse Reaction (Mild, Verified 11/19/24 13:26) confusion niacin Adverse Reaction (Mild, Verified 11/19/24 13:26) jittery fentanyl Adverse Reaction (Verified 11/19/24 13:26) Other oxycodone (From OxyContin) Adverse Reaction (Verified 11/19/24 13:26) Nausea/Vom/Diarrhea Medications 3 ???Medication ???Instructions ???Recorded ???Confirmed ???Type ascorbic acid (vitamin C) 500 mg 500 mg PO BIDCM 06/03/13 08/28/15 History tablet (Vitamin C) cholecalciferol (vitamin D3) 50 2,000 unit PO DAILY 06/03/1308/27 History mcg (2,000 unit) capsule (D3-2000) cyclobenzaprine 10 mg tablet 10 mg PO BID PRN PRN FIBROMYALGIA 06/03/13 08/28/15 History ferrous sulfate 325 mg (65 mg 325 mg PO BIDCM 06/03/13 08/28/15 History iron) tablet fluoxetine 20 mg capsule 40 mg PO DAILY 06/03/13 08/28/15 H istory glucosamine HCl 500 mg-msm 83 400 mg PO DAILY 06/03/13 08/28/15 History mg-chondroitin 400 mg tablet meclizine 25 mg tablet (Antivert) 25 mg PO Q6H PRN PRN DIZZINESS 08/28/15 History pantoprazole 20 mg tablet,delayed 20 mg PO DAILY 06/03/13 08/28/15 History release simvastatin 40 mg tablet 40 mg PO QHS 06/03/13 08/28/15 His tory lidocaine 5 % topical patch 1 patch topical DAILY 10/11/13 History hydrocodone 5 mg-acetaminophen 300 1 tab PO BID PRN PRN Pain 08/28/15 History mg tablet (Vicodin) albuterol sulfate 90 mcg/actuation 2 puff inhalation Q4 PRN 5 11/19/24 History aerosol inhaler amlodipine 10 mg tablet 10 mg PO QDAY 11/19/24 11/19/24 Hi story atorvastatin 40 mg tablet 40 mg PO QDAY 11/19/24 11/19/24 Hi story buspirone 15 mg tablet 15 mg PO BID 11/19/24 11/19/24 His tory glimepiride 4 mg tablet 4 mg PO BID 11/19/24 11/19/24 Hist ory lisinopril 30 mg tablet 30 mg PO QDAY 11/19/24 11/19/24 Hi story meloxicam 15 mg tablet 15 mg PO QDAY 11/19/24 11/19/24 Hi story metformin 500 mg tablet,extended 1,000 mg PO BID 11/19/24 11/19/24 History release 24 hr sitagliptin phosphate 100 mg 100 mg PO QDAY 11/19/24 11/19/24 H istory tablet (Januvia) Have you fallen in the past year?: No Nurse's Note: pt here for eval of susupicious lesion on right cheek, right taoism and left cheek PFSH Medical History Ankle fracture GERD (gastroesophageal reflux disease) High cholesterol Osteoarthritis Glaucoma Hypertension Depression Carpal tunnel syndrome Cataracts, bilateral Bone fracture Back problem Arthritis Allergies Degenerative disc disease Fibromyalgia Diabetes History of alcohol abuse Surgical History H/O: hysterectomy History of left hip replacement Family History Other Anemia Angina at rest Arthritis Breast cancer Cancer Depression Diabetes High cholesterol Hypertension Melanoma Social History Smoking Status: Former smoker alcohol intake: former additional social history: pt denies vaping, denies marijuana Does use edibles, denies blood clots/disorder HPI NEOPLASM R EAR Details: The patient is a 74-year-old female presenting with skin lesions for evaluation. She reports a longstanding pigmented lesion on her left cheek, believed to be an age spot, and a changing pigmented lesion on the right preauricular cheek, which has darkened over six months. Additionally, there is a lesion on the right upper taoism, described as pearly, indurated, and red, measuring 0.5 x 0.5 cm. The patient initially attributed these lesions to the use of her CPAP machine. The patient has Type 2 Diabetes Mellitus with an A1c of 7, aiming for 6.8 by April. She denies bleeding or clotting disorders and has no cervical lymphadenopathy. She quit smoking seven to eight (more content not included)... Normal [facility] ALBUMIN/CREATININE RATIO, UR INEon 10-22-2024 Albumin DL <= 20 mg/L (U) [Mass/Vol] 19.8 mg/L Normal [facility] Comment on above: Order Comment: Speci men Type: URINE SPECIMENOrdering Facility: [facility] Address: [address] [place] [address] Performed By: #### U ACR ####[facility] LABCLIA [id number] [place] [address] [place] Albumin/Creatinine (U) [Mass ratio] 21 mg/g Normal <30 [facility] Comment on above: Order Comment: Speci men Type: URINE SPECIMENOrdering Facility: [facility] Address: [address] [place] [address] Result Comment: Adul t Male and Female Nephrotic Criteria: <30 mg/g is considered normal to mildly increased 30-300 mg/g is considered moderately increased >300 mg/g is considered severely increased KDIGO. (2013). KDIGO 2012 Clinical Practice Guideline for the Evaluation and Management of Chronic Kidney Disease. Official Journal of the International Society of Nephrology, 3(1), 1-150. Performed By: #### U ACR ####[facility] LABIA [id number] [place] [id number] [place] Creatinine (U) [Mass/Vol] 94.6 mg/dL Normal 20.0-300.0 [facility] Comment on above: Order Comment: Speci men Type: URINE SPECIMENOrdering Facility: [facility] Address: [address] [place] [id number] Performed By: #### U ACR ####[facility] LABCLIA [id number] [address] [address] [place] Hemoccult Stl Ql IAon 2024 Lower GI hemoglobin IA Ql (Stl) Negative Normal Negative [facility] Comment on above: Order Comment: Speci men Type: STOOL SPECIMENOrdering Facility: [facility] Address: [address] [place] [address] Performed By: #### 2 9771-3 ####[facility] LABCLIA [id number] [address] [place] [address] [place] Urinalysis complete panel (U )on 10-22-2024 Bacteria LM.HPF (Urine sed) [#/Area] Negative Normal Negative [facility] Comment on above: Order Comment: Speci men Type: URINE SPECIMENOrdering Facility: [facility] Address: [address] [place] [address] Performed By: #### 2 4356-8 ####[facility] LABCLIA [id number] [address], [facility]95 [place] Bilirubin Ql (U) Negative Normal Negative [facility] Comment on above: Order Comment: Speci men Type: URINE SPECIMENOrdering Facility: [facility] Address: [address] [place] [address] Performed By: #### 2 4356-8 ####[facility] LABCLIA [id number] [address], [facility]95 [place] Clarity (Unsp spec) Clear Normal Clear [facility] Comment on above: Order Comment: Speci men Type: URINE SPECIMENOrdering Facility: [facility] Address: [address] [place] [address] Performed By: #### 2 4356-8 ####[facility] LABCLIA [id number] [address] [place] [address] [place] Color (U) Yellow Normal Yellow [facility] Comment on above: Order Comment: Speci men Type: URINE SPECIMENOrdering Facility: [facility] Address: [address] [place], [place] [address] Performed By: #### 2 4356-8 ####[facility] LABCLIA [id number] [place] Epithelial cells LM.HPF (Urine sed) [#/Area] None Seen Normal [facility] Comment on above: Order Comment: Speci men Type: URINE SPECIMENOrdering Facility: [facility] Address: [address] [place] [address] Performed By: #### 2 4356-8 ####[facility] LABCLIA [id number] [address] [place] Glucose Test strip (U) [Mass/Vol] Negative Normal Negative [facility] Comment on above: Order Comment: Speci men Type: URINE SPECIMENOrdering Facility: [facility] Address: [address] [place] [address] Performed By: #### 2 4356-8 ####[facility] LABCLIA [id number] [place] [address] [place] Hemoglobin Ql (U) Negative Normal Negative [facility] Comment on above: Order Comment: Speci men Type: URINE SPECIMENOrdering Facility: [facility] Address: [address] [place] [address] Performed By: #### 2 4356-8 ####[facility] LABCLIA [id number] [place] [address] [place] Hyaline casts (Urine sed) [#/Area] 0 /[LPF] Normal 0 /LPF [facility] Comment on above: Order Comment: Speci men Type: URINE SPECIMENOrdering Facility: [facility] Address: [address] [place] [address] Performed By: #### 2 4356-8 ####[facility] LABCLIA [id number] [address] [place] Ketones Ql (U) Negative Normal Negative [facility] Comment on above: Order Comment: Speci men Type: URINE SPECIMENOrdering Facility: [facility] Address: [address] [place] [address] Performed By: #### 2 4356-8 ####[facility] LABCLIA [id number] [address], [place] [address] [place] Leukocyte esterase Test strip Ql (U) Negative Normal Negative [facility] Comment on above: Order Comment: Speci men Type: URINE SPECIMENOrdering Facility: [facility] Address: [address] [place] [address] Performed By: #### 2 4356-8 ####[facility] LABCLIA [id number] [place] [address] [place] Nitrite Ql (U) Negative Normal Negative [facility] Comment on above: Order Comment: Speci men Type: URINE SPECIMENOrdering Facility: [facility] Address: [address] [place] [address] Performed By: #### 2 4356-8 ####[facility] LABCLIA [id number] [place] [address] [place] pH (U) 7.0 [pH] Normal <8.5 [facility] Comment on above: Order Comment: Speci men Type: URINE SPECIMENOrdering Facility: [facility] Address: [address] [place] [address] Performed By: #### 2 4356-8 ####[facility] LABCLIA [id number] [place] [address] [place] Protein (U) [Mass/Vol] Trace Abnormal Negative [facility] Comment on above: Order Comment: Speci men Type: URINE SPECIMENOrdering Facility: [facility] Address: [address] [place] [address] Performed By: #### 2 4356-8 ####[facility] LABCLIA [id number] [place] [address] [place] RBC LM.HPF (Urine sed) [#/Area] 0-2 /HPF Normal 0-2 /HPF [facility] Comment on above: Order Comment: Speci men Type: URINE SPECIMENOrdering Facility: [facility] Address: [address] [place] [address] Performed By: #### 2 4356-8 ####[facility] [id number] [place] [address] [place] Specific gravity (U) [Rel density] 1.020 Normal 1.005-1.030 [facility] Comment on above: Order Comment: Speci men Type: URINE SPECIMENOrdering Facility: [facility] Address: [address] [place] [address] Performed By: #### 2 4356-8 ####[facility] [id number] [place] [address] [place] Urobilinogen Ql (U) 0.2 EU/dL Normal 0.2-1.0 EU/dL [facility] Comment on above: Order Comment: Speci men Type: URINE SPECIMENOrdering Facility: [facility] Address: [address] [place] [address] Performed By: #### 2 4356-8 ####[facility] [id number] [place] [address] [place] WBC LM.HPF (Urine sed) [#/Area] 0-5 /HPF Normal 0-5 /HPF [facility] Comment on above: Order Comment: Speci men Type: URINE SPECIMENOrdering Facility: [facility] Address: [address] [place] [address] Performed By: #### 2 4356-8 ####[facility] [id number] [place] [id number] [place] HbA1c (Bld)on 10-20-2024 Average glucose Estimated from glycated hemoglobin (Bld) [Mass/Vol] 154 mg/dL [facility] Comment on above: eAG: (Estimated aver age glucose) is a calculated value from HgbA1c and is community representative of the average blood glucose level in the last 2-3 month period. HbA1c (Bld) [Mass fraction] 7 % High 4.3 - 5.6 % [facility] Comment on above: [place] Diabetes As sociation guidelines indicate that patients with HgbA1c in the range 5.7-6.4% are at increased risk for development of diabetes, and intervention by lifestyle modification may be beneficial. HgbA1c greater or equal to 6.5% is considered diagnostic of diabetes. Interpretation and review of laboratory results Abnormal [facility] CBC W Auto Differential pane l (Bld)on 10-19-2024 Basophils (Bld) [#/Vol] 0.04 10*3/uL [facility] Basophils/100 WBC (Bld) 0.4 % [facility] Differential cell count method Nom (Bld) Auto [facility] Eosinophils (Bld) [#/Vol] 0.04 10*3/uL [facility] Eosinophils/100 WBC (Bld) 0.4 % [facility] Erythrocyte distribution width (RBC) [Ratio] 12.8 % 11.5 - 15.0 % [facility] Hematocrit (Bld) [Volume fraction] 40 % 36.0 - 46.0 % [facility] Hemoglobin (Bld) [Mass/Vol] 13.1 g/dL 11.5 - 15.5 g/dL [facility] Immature granulocytes (Bld) [#/Vol] 0.03 10*3/uL [facility] Immature granulocytes/100 WBC (Bld) 0.3 % [facility] Interpretation and review of laboratory results Abnormal [facility] Lymphocytes (Bld) [#/Vol] 2.95 10*3/uL [facility] Lymphocytes/100 WBC (Bld) 27 % [facility] MCH (RBC) [Entitic mass] 28.1 pg 26.0 - 34.0 pg [facility] MCHC (RBC) [Mass/Vol] 32.8 g/dL 30.5 - 36.0 g/dL [facility] MCV (RBC) [Entitic vol] 85.8 fL 80.0 - 100.0 fL [facility] Monocytes (Bld) [#/Vol] 0.75 10*3/uL [facility] Monocytes/100 WBC (Bld) 6.9 % [facility] Neutrophils (Bld) [#/Vol] 7.13 10*3/uL [facility] Neutrophils/100 WBC (Bld) 65 % [facility] Nucleated RBC (Bld) [#/Vol] NINF [facility] Nucleated RBC/100 WBC (Bld) [Ratio] 0 % /100 WBC [facility] Platelet mean volume (Bld) [Entitic vol] 8.9 fL Low 9.0 - 12.7 fL [facility] Platelets (Bld) [#/Vol] 343 10*3/uL [facility] RBC (Bld) [#/Vol] 4.66 10*6/uL 3.90 - 5.2 0 m/uL [facility] WBC (Bld) [#/Vol] 10.94 10*3/uL [facility] Basophils (Bld) [#/Vol] 0.04 10*3/uL Normal <0.11 [facility] Comment on above: Order Comment: Speci men Type: BLOOD SPECIMENOrdering Facility: [facility] Address: [address] [place] [address] Performed By: #### 5 7021-8 ####[facility] LABCLIA [id number] [place] [address] [place] Basophils/100 WBC (Bld) 0.4 % Normal [facility] Comment on above: Order Comment: Speci men Type: BLOOD SPECIMENOrdering Facility: [facility] Address: [address] [place] [address] Performed By: #### 5 7021-8 ####[facility] LABCLIA [id number] [place] [address] [place] Differential cell count method Nom (Bld) Auto Normal [facility] Comment on above: Order Comment: Speci men Type: BLOOD SPECIMENOrdering Facility: [facility] Address: [address] [place] [address] Performed By: #### 5 7021-8 ####[facility] LABCLIA [id number] [place] [address] [place] Eosinophils (Bld) [#/Vol] 0.04 10*3/uL Normal <0.46 [facility] Comment on above: Order Comment: Speci men Type: BLOOD SPECIMENOrdering Facility: [facility] Address: [address] [place] [address] Performed By: #### 5 7021-8 ####[facility] LABCLIA [id number] [address] [address] [place] Eosinophils/100 WBC (Bld) 0.4 % Normal [facility] Comment on above: Order Comment: Speci men Type: BLOOD SPECIMENOrdering Facility: [facility] Address: [address] [place] [address] Performed By: #### 5 7021-8 ####[facility] LABCLIA [id number] [address], [place] [address] [place] Erythrocyte distribution width (RBC) [Ratio] 12.8 % Normal 11.5-15.0 [facility] Comment on above: Order Comment: Speci men Type: BLOOD SPECIMENOrdering Facility: [facility] Address: [address] [place] [address] Performed By: #### 5 7021-8 ####[facility] LABCLIA [id number] [place] [id number] [place] Hematocrit (Bld) [Volume fraction] 40.0 % Normal 36.0-46.0 [facility] Comment on above: Order Comment: Speci men Type: BLOOD SPECIMENOrdering Facility: [facility] Address: [address] [place] [address] Performed By: #### 5 7021-8 ####[facility] LABCLIA [id number] [address] [address] [place] Hemoglobin (Bld) [Mass/Vol] 13.1 g/dL Normal 11.5-15.5 [facility] Comment on above: Order Comment: Speci men Type: BLOOD SPECIMENOrdering Facility: [facility] Address: [address] [place], [place] [address] Performed By: #### 5 7021-8 ####[facility] LABCLIA [id number] [place] [address] [place] Immature granulocytes (Bld) [#/Vol] 0.03 10*3/uL Normal <0.10 [facility] Comment on above: Order Comment: Speci men Type: BLOOD SPECIMENOrdering Facility: [facility] Address: [address] [place] [address] Performed By: #### 5 7021-8 ####[facility] LABCLIA [id number] [place] [address] [place] Immature granulocytes/100 WBC (Bld) 0.3 % Normal [facility] Comment on above: Order Comment: Speci men Type: BLOOD SPECIMENOrdering Facility: [facility] Address: [address] [place] [address] Performed By: #### 5 7021-8 ####[facility] LABCLIA [id number] [place] [address] [place] Lymphocytes (Bld) [#/Vol] 2.95 10*3/uL Normal 1.00-4.00 [facility] Comment on above: Order Comment: Speci men Type: BLOOD SPECIMENOrdering Facility: [facility] Address: [address] [place] [address] Performed By: #### 5 7021-8 ####[facility] LABCLIA [id number] [place] [address] [place] Lymphocytes/100 WBC (Bld) 27.0 % Normal [facility] Comment on above: Order Comment: Speci men Type: BLOOD SPECIMENOrdering Facility: [facility] Address: [address] [place] [address] Performed By: #### 5 7021-8 ####[facility] LABCLIA [id number] [place] [address] [place] MCH (RBC) [Entitic mass] 28.1 pg Normal 26.0-34.0 [facility] Comment on above: Order Comment: Speci men Type: BLOOD SPECIMENOrdering Facility: [facility] Address: [address] [place] [address] Performed By: #### 5 7021-8 ####[facility] LABIA [id number] [place] [address] [place] MCHC (RBC) [Mass/Vol] 32.8 g/dL Normal 30.5-36.0 [facility] Comment on above: Order Comment: Speci men Type: BLOOD SPECIMENOrdering Facility: [facility] Address: [address] [place] [address] Performed By: #### 5 7021-8 ####[facility] [id number] [place] [address] [place] MCV (RBC) [Entitic vol] 85.8 fL Normal 80.0-100.0 [facility] Comment on above: Order Comment: Speci men Type: BLOOD SPECIMENOrdering Facility: [facility] Address: [address] [place] [address] Performed By: #### 5 7021-8 ####[facility] [id number] [place] [address] [place] Monocytes (Bld) [#/Vol] 0.75 10*3/uL Normal <0.87 [facility] Comment on above: Order Comment: Speci men Type: BLOOD SPECIMENOrdering Facility: [facility] Address: [address] [place] [address] Performed By: #### 5 7021-8 ####[facility] LABIA [id number] [address] [place] Monocytes/100 WBC (Bld) 6.9 % Normal [facility] Comment on above: Order Comment: Speci men Type: BLOOD SPECIMENOrdering Facility: [facility] Address: [address] [place] [address] Performed By: #### 5 7021-8 ####[facility] LABCLIA [id number] [address] [address] [place] Neutrophils (Bld) [#/Vol] 7.13 10*3/uL Normal 1.45-7.50 [facility] Comment on above: Order Comment: Speci men Type: BLOOD SPECIMENOrdering Facility: [facility] Address: [address] [place] [address] Performed By: #### 5 7021-8 ####[facility] LABCLIA [id number] [place] [address] [place] Neutrophils/100 WBC (Bld) 65.0 % Normal [facility] Comment on above: Order Comment: Speci men Type: BLOOD SPECIMENOrdering Facility: [facility] Address: [address] [place] [address] Performed By: #### 5 7021-8 ####[facility] LABCLIA [id number] [place] [address] [place] Nucleated RBC (Bld) [#/Vol] 10*3/uL Normal <0.01 [facility] Comment on above: Order Comment: Speci men Type: BLOOD SPECIMENOrdering Facility: [facility] Address: [address] [place] [address] Performed By: #### 5 7021-8 ####[facility] LABCLIA [id number] [place] [address] [place] Nucleated RBC/100 WBC (Bld) [Ratio] 0.0 /100 WBC Normal [facility] Comment on above: Order Comment: Speci men Type: BLOOD SPECIMENOrdering Facility: [facility] Address: [address] [place] [address] Performed By: #### 5 7021-8 ####[facility] LABCLIA [id number] [address], [facility] [place] Platelet mean volume (Bld) [Entitic vol] 8.9 fL Low 9.0-12.7 [facility] Comment on above: Order Comment: Speci men Type: BLOOD SPECIMENOrdering Facility: [facility] Address: [address] [place] [address] Performed By: #### 5 7021-8 ####[facility] LABCLIA [id number] [place] [address] [place] Platelets (Bld) [#/Vol] 343 10*3/uL Normal 150-400 [facility] Comment on above: Order Comment: Speci men Type: BLOOD SPECIMENOrdering Facility: [facility] Address: [address] [place] [address] Performed By: #### 5 7021-8 ####[facility] LABIA [id number] [place] [address] [place] RBC (Bld) [#/Vol] 4.66 10*6/uL Normal 3.90-5.20 [facility] Comment on above: Order Comment: Speci men Type: BLOOD SPECIMENOrdering Facility: [facility] Address: [address] [place] [address] Performed By: #### 5 7021-8 ####[facility] LABIA [id number] [place] [address] [place] WBC (Bld) [#/Vol] 10.94 10*3/uL Normal 3.70-11.00 [facility] Comment on above: Order Comment: Speci men Type: BLOOD SPECIMENOrdering Facility: [facility] Address: [address] [place] [address] Performed By: #### 5 7021-8 ####[facility] LABIA [id number] [place] [id number] [place] CNOVon 10-19-2024 CNOV Office Visit (FAMPWS ) BEVERLY GIVENS ([id number]) 1950 F NFR Date Time Provider Department 10/19/24 1:40 PM LUIS M JOHNSON During your visit today, we recorded the following information about you: Pulse Respiration Blood pressure Weight 121/minute 18/minute 116/60 130.2 kg Height 1.702 m Luis M Johnson MD 10/20/2024 8:51 AM Signed Beverly Givens is a 74 year old female here for a Medicare wellness visit. Medicare Health Risk Assessment General Health Fair Exercise: Minutes/Day 0 min Exercise: Days/Week 0 days Alcohol: Daily Use Never Alcohol: Drinks/Day Patient does not drink Alcohol: 6 or more drinks Never Feel off balance No Concerns: Teeth/Dentures No Concerns: Sexual function No Troubled by feelings None of the above Frequency: Eating healthy diet Several days ADLs requiring help None of the above Safety precautions in home/vehicle Yes Smoke, vape, chews tobacco No Difficulty hearing No Difficulty seeing No Current Providers Specialists: I have reviewed specialist-related care of the patient in the medical record. Current care team: Patient Care Team: Luis M Johnson MD as PCP - General (Family Medicine) Teddy Cox APRN.CNP as [employer] Engagement Planning Operator (Family Medicine) Summer Telles PA-C as [employer] Engagement Planning Operator (Family Medicine) optho Medical/Family history review Reviewed and updated problem list, medical/surgical/famil y/social history, medications, and allergies. Opioid use review Opioid Medications (last 90 days) No data to display Anxiety/Depression screening PHQ-9 Score: 3 (Minimal Depression) ASHELY-7 Score: 0 . Recommendation: continuing current treatment plan Cognitive screening Score: 5 Cognitive screening reviewed and No further action needed (score 3-5). Functional Observation Was the patient's Timed Up AND Go test unsteady or >= 12 seconds? No Advance Care Planning Patient did not wish or was not able to name a surrogate decision maker or provide an advance care plan Measurements BP 116/60 Pulse (!) 121 Resp 18 Ht 170.2 cm (5' 7") Wt 130.2 kg (287 lb) SpO2 97% BMI 44.95 kg/m? Vision Screening: Follows with optometry/ophthalmolog y Assessment/Plan Medicare annual wellness visit, subsequent (Z00.00) - Counseled on healthy diet and regular exercise - Fall avoidance information provided - Personalized prevention plan provided See below Chief Complaint Patient presents with: Medicare Wellness Exam HPI Beverly Givens is a 74 year old female who presents here today for Chronic Medical Conditions. and Medicare Annual Visit. Patient with hx of DM type 2, GERD, Hyperlipidemia, WHIT, Anxiety, depression, morbid obesity, Fibromyalgia, ex-smoker, osteopenia, osteoarthritis as well as those reviewed and addressed below and in ROS Ref Range AND Units 6 mo ago (04/19/24) 1 yr ago (10/17/23) 1 yr ago (04/04/23) 2 yr ago (10/01/22) 2 yr ago (04/10/22) 3 yr ago (09/05/21) 3 yr ago (03/27/21) Hemoglobin A1C 4.3 - 5.6 % 7.0 High 7.8 High CM 6.8 High CM 7.3 High CM 7.2 High CM 7.5 High CM 6.7 High Patient sees Ophthalmology last visit 10/2023. Needs to schedule her appt for this year. Beverly reports a darkening mole on her face, which was initially flesh-colored but has gradually become darker. She also mentions two large moles on her back that have been present for a while. She has not seen a pharm spec and started using Vitality Oils on her face, which she believes may have coincided with the changes in the mole's appearance. She reports weight gain and acknowledges a lack of exercise, despite owning a recumbent exercise bike. Her diet includes quinoa and eggs as primary protein sources, and she admits to overeating fruits and vegetables, considering them "free" foods. She also mentions cravings for potatoes and occasionally forgetting to eat due to being engrossed in activities like reading. Beverly reports that her fibromyalgia symptoms have been exacerbated recently, particularly noting tightness in her back. She also mentions a groin strain that sometimes cramps, which she manages with magnesium supplements and extra-strength Tylenol gel caps in addition to her prescribed meloxicam. She expresses reluctance to receive injections for her low back issues, stating that they provide only temporary relief. She reports occasional wheezing, which she attributes to her inhaler, and a recent episode of pain in her armpit that radiated to her back and shoulder blade, resembling pleuritic pain but resolved by the morning. She also notes occasional swelling in her legs and feet, which she attributes to salt intake and manages with compression stockings. She denies recent fevers, frequent headaches, sudden changes in hearing or vision, issues with her nose or throat, lumps or swelling in her neck, frequen (more content not included)... Normal [facility] Cobalamin (Vitamin B12) [Mas s/Vol]on 10-19-2024 Interpretation and review of laboratory results Normal [facility] Comprehensive metabolic 2000 panelon 10-19-2024 Albumin [Mass/Vol] 4.8 g/dL 3.9 - 4.9 g/dL Cl [facility] ALP [Catalytic activity/Vol] 80 U/L 34 - 123 U/L [facility] ALT [Catalytic activity/Vol] 30 U/L 7 - 38 U/L [facility] Anion gap [Moles/Vol] 18 mmol/L High 8 - 15 mmol/L [facility] AST [Catalytic activity/Vol] 26 U/L 13 - 35 U/L [facility] Bilirubin [Mass/Vol] 0.3 mg/dL 0.2 - 1 .3 mg/dL [facility] Calcium [Mass/Vol] 10.1 mg/dL 8.5 - 10. 2 mg/dL [facility] Chloride [Moles/Vol] 100 mmol/L 98 - 10 7 mmol/L [facility] CO2 [Moles/Vol] 19 mmol/L Low 22 - 30 mmol/L [facility] Creatinine [Mass/Vol] 1 mg/dL High 0.58 - 0.96 mg/dL [facility] GFR/1.73 sq M.predicted among non-blacks MDRD (S/P/Bld) [Vol rate/Area] 60 mL/min/{1.73_m2} - PINF [facility] Comment on above: Estimated Glomerular Filtration Rate (eGFR) is calculated using the 2020 CKD-EPI creatinine equation. This equation utilizes serum creatinine, sex, and age as parameters. The creatinine assay has traceable calibration to isotope dilution-mass spectrometry. Refer to KDIGO guidelines for clinical interpretation. In patients with unstable renal function, e.g. those with acute kidney injury, the eGFR may not accurately reflect actual GFR. Glucose [Mass/Vol] 168 mg/dL High 74 - 99 mg/dL [facility] Comment on above: The [place] Diabete s Association (ADA) provides guidance for cutoff values for fasting glucose and random glucose. The ADA defines fasting as no caloric intake for at least 8 hours. Fasting plasma glucose results between 100 to 125 mg/dL indicate increased risk for diabetes (prediabetes). Fasting plasma glucose results greater than or equal to 126 mg/dL meet the criteria for diagnosis of diabetes. In the absence of unequivocal hyperglycemia, results should be confirmed by repeat testing. In a patient with classic symptoms of hyperglycemia or hyperglycemic crisis, random plasma glucose results greater than or equal to 200 mg/dL meet the criteria for diagnosis of diabetes. Reference: Standards of Medical Care in Diabetes 2016, [place] Diabetes Association. Diabetes Care. 2016.39(Suppl 1). Potassium [Moles/Vol] 4.5 mmol/L 3.7 - 5.1 mmol/L [facility] Protein [Mass/Vol] 7.9 g/dL 6.3 - 8.0 g/dL [facility] Sodium [Moles/Vol] 137 mmol/L 136 - 144 mmol/L [facility] Urea nitrogen [Mass/Vol] 18 mg/dL 7 - 21 mg/dL [facility] Albumin [Mass/Vol] 4.8 g/dL Normal 3.9-4.9 [facility] Comment on above: Order Comment: Speci men Type: BLOOD SPECIMENOrdering Facility: [facility] Address: [address] [place] [address] Performed By: #### 2 4323-8, 80845-6, 3016-3, LIPNF ####[facility] LABCLIA [id number] [place] [address] [place] ALP [Catalytic activity/Vol] 80 U/L Normal 34-123 [facility] Comment on above: Order Comment: Speci men Type: BLOOD SPECIMENOrdering Facility: [facility] Address: [address] [place] [address] Performed By: #### 2 4323-8, 29226-6, 6-3, LIPNF ####[facility] LABCLIA [id number] [address] [address] [place] ALT [Catalytic activity/Vol] 30 U/L Normal 7-38 [facility] Comment on above: Order Comment: Speci men Type: BLOOD SPECIMENOrdering Facility: [facility] Address: [address] [place] [address] Performed By: #### 2 4323-8, 97747-4, 6-3, LIPNF ####[facility] LABIA [id number] [address] [address] [place] Anion gap [Moles/Vol] 18 mmol/L High 8-15 [facility] Comment on above: Order Comment: Speci men Type: BLOOD SPECIMENOrdering Facility: [facility] Address: [address] [place] [address] Performed By: #### 2 4323-8, , 3015-3, LIPNF ####[facility] LABIA [id number] [address] [address] [place] AST [Catalytic activity/Vol] 26 U/L Normal 13-35 [facility] Comment on above: Order Comment: Speci men Type: BLOOD SPECIMENOrdering Facility: [facility] Address: [address] [place], [place] [address] Performed By: #### 2 4323-8, 48275-6, 6-3, LIPNF ####[facility] LABIA [id number] [address] [address] [place] Bilirubin [Mass/Vol] 0.3 mg/dL Normal 0.2-1.3 [facility] Comment on above: Order Comment: Speci men Type: BLOOD SPECIMENOrdering Facility: [facility] Address: [address] [place], [place] [address] Performed By: #### 2 4323-8, 35832-7, 3, LIPNF ####[facility] LABIA [id number] [address] [address] [place] Calcium [Mass/Vol] 10.1 mg/dL Normal 8.5-10.2 [facility] Comment on above: Order Comment: Speci men Type: BLOOD SPECIMENOrdering Facility: [facility] Address: [address] [place] [address] Performed By: #### 2 4323-8, , 3, LIPNF ####[facility] LABIA [id number] [place] [id number] [place] Chloride [Moles/Vol] 100 mmol/L Normal 98-107 [facility] Comment on above: Order Comment: Speci men Type: BLOOD SPECIMENOrdering Facility: [facility] Address: [address] [place] [address] Performed By: #### 2 4323-8, , 3, LIPNF ####[facility] [id number] [place] [id number] [place] CO2 [Moles/Vol] 19 mmol/L Low 22-30 [facility] Comment on above: Order Comment: Speci men Type: BLOOD SPECIMENOrdering Facility: [facility] Address: [address] [place], [place] [address] Performed By: #### 2 4323-8, , 3, LIPNF ####[facility] LABIA [id number] [address] [address] [place] Creatinine [Mass/Vol] 1.00 mg/dL High 0.58-0.96 [facility] Comment on above: Order Comment: Speci men Type: BLOOD SPECIMENOrdering Facility: [facility] Address: [address] [place], [place] [address] Performed By: #### 2 4323-8, , 3016-3, LIPNF ####[facility] LABCLIA [id number] [place] [address] [place] Creatinine and Glomerular filtration rate.predicted panel (S/P/Bld) 60 mL/min/1.73m??? Normal >=60 [facility] Comment on above: Order Comment: Sukhdev castro Type: BLOOD SPECIMENOrdering Facility: [facility] Address: [address] [place] [address] Result Comment: Prudence mated Glomerular Filtration Rate (eGFR) is calculated using the 2020 CKD-EPI creatinine equation. This equation utilizes serum creatinine, sex, and age as parameters. The creatinine assay has traceable calibration to isotope dilution-mass spectrometry. Refer to KDIGO guidelines for clinical interpretation. In patients with unstable renal function, e.g. those with acute kidney injury, the eGFR may not accurately reflect actual GFR. Performed By: #### 2 4323-8, 63613-6, 3016-3, LIPNF ####[facility] LABIA [id number] [place] [address] [place] Glucose [Mass/Vol] 168 mg/dL High 74-99 [facility] Comment on above: Order Comment: Sukhdev castro Type: BLOOD SPECIMENOrdering Facility: [facility] Address: [address] [place] [address] Result Comment: The [place] Diabetes Association (ADA) provides guidance for cutoff values for fasting glucose and random glucose. The ADA defines fasting as no caloric intake for at least 8 hours. Fasting plasma glucose results between 100 to 125 mg/dL indicate increased risk for diabetes (prediabetes). Fasting plasma glucose results greater than or equal to 126 mg/dL meet the criteria for diagnosis of diabetes. In the absence of unequivocal hyperglycemia, results should be confirmed by repeat testing. In a patient with classic symptoms of hyperglycemia or hyperglycemic crisis, random plasma glucose results greater than or equal to 200 mg/dL meet the criteria for diagnosis of diabetes. Reference: Standards of Medical Care in Diabetes 2016, [place] Diabetes Association. Diabetes Care. 2016.39(Suppl 1). Performed By: #### 2 4323-8, 55617-8, 3016-3, LIPNF ####[facility] LABCLIA [id number] [address] [address] [place] Potassium [Moles/Vol] 4.5 mmol/L Normal 3.7-5.1 [facility] Comment on above: Order Comment: Speci men Type: BLOOD SPECIMENOrdering Facility: [facility] Address: [address] [place], [place] [address] Performed By: #### 2 4323-8, , 3015-3, LIPNF ####[facility] LABCLIA [id number] [address] [address] [place] Protein [Mass/Vol] 7.9 g/dL Normal 6.3-8.0 [facility] Comment on above: Order Comment: Speci men Type: BLOOD SPECIMENOrdering Facility: [facility] Address: [address] [place] [address] Performed By: #### 2 4323-8, , 3, LIPNF ####[facility] LABCLIA [id number] [address] [address] [place] Sodium [Moles/Vol] 137 mmol/L Normal 136-144 [facility] Comment on above: Order Comment: Speci men Type: BLOOD SPECIMENOrdering Facility: [facility] Address: [address] [place], [place] [address] Performed By: #### 2 4323-8, , 3, LIPNF ####[facility] LABCLIA [id number] [address] [address] [place] Urea nitrogen [Mass/Vol] 18 mg/dL Normal 7-21 [facility] Comment on above: Order Comment: Speci men Type: BLOOD SPECIMENOrdering Facility: [facility] Address: [address] [place], [place] [address] Performed By: #### 2 4323-8, 81255-0, 3015-3, LIPNF ####[facility] LABCLIA [id number] [place] [id number] [place] HbA1c (Bld)on 10-19-2024 Average glucose Estimated from glycated hemoglobin (Bld) [Mass/Vol] 154 mg/dL Normal [facility] Comment on above: Order Comment: Sukhdev castro Type: BLOOD SPECIMENOrdering Facility: [facility] Address: [address] [place] [address] Result Comment: eAG: (Estimated average glucose) is a calculated value from HgbA1c and is community representative of the average blood glucose level in the last 2-3 month period. Performed By: #### 5 5454-3 ####[facility] [id number] [address] [facility] HbA1c (Bld) [Mass fraction] 7.0 % High 4.3-5.6 [facility] Comment on above: Order Comment: Sukhdev castro Type: BLOOD SPECIMENOrdering Facility: [facility] Address: [address] [place] [address] Result Comment: [place] Diabetes Association guidelines indicate that patients with HgbA1c in the range 5.7-6.4% are at increased risk for development of diabetes, and intervention by lifestyle modification may be beneficial. HgbA1c greater or equal to 6.5% is considered diagnostic of diabetes. Performed By: #### 5 5454-3 ####[facility] [id number] [place] [address] [place] LIPID PANEL, NONFASTINGon Cholesterol [Mass/Vol] 208 mg/dL High NINF - 200 mg/dL [facility] Comment on above: <200 mg/dL, Desirabl e 200-239 mg/dL, Borderline high >239 mg/dL, High HDL Cholesterol, Nonfasting 57 mg/dL 39 - PINF mg/dL [facility] Comment on above: 40-59 mg/dL, Accepta ble >59 mg/dL, High: Negative risk factor for coronary heart disease <40 mg/dL, Low: Positive risk factor for coronary heart disease LDL Cholesterol Calculated, Nonfasting 116 mg/dL High NINF - 100 mg/dL [facility] Comment on above: <100 mg/dL, Optimal 100-129 mg/dL, Near optimal/above optimal 130-159 mg/dL, Borderline high 160-189 mg/dL, High >189 mg/dL, Very high Secondary prevention optimal LDL Cholesterol levels are recommended to be <70 mg/dL LDL cholesterol is calculated using the Mercer-NIH equation. LDL/HDL Ratio, Nonfasting 2.04 mg/dL NINF - 2.54 mg/dL [facility] Comment on above: Reference: 1. National Cholesterol Education Program ATP III Guideline At-A-Glance Quick Desk Reference: National Heart, Lung, and Blood [place]. National Institutes of Health. 2001: NIH Publication No. 01-3305. 2. An International Atherosclerosis Society position paper: global recommendations for the management of dyslipidemia: executive summary, Atherosclerosis. 2014: 232(2):410-413. Non HDL Cholesterol, Nonfasting 151 mg/dL High NINF - 130 mg/dL [facility] Comment on above: <130 mg/dL, Optimal 130-159 mg/dL, Near optimal/above optimal 160-189 mg/dL, Borderline high 190-219 mg/dL, High >219 mg/dL, Very high Secondary prevention optimal non HDL Cholesterol levels are recommended to be <100 mg/dL Total Chol/HDL Ratio, Nonfasting 3.65 mg/dL NINF - 5.10 mg/dL [facility] Triglycerides, Nonfasting 204 mg/dL High NINF - 150 mg/dL [facility] Comment on above: <150 mg/dL, Normal 150-199 mg/dL, Borderline high 200-499 mg/dL, High >499 mg/dL, Very high VLDL Cholesterol, Nonfasting 35 mg/dL High NINF - 30 mg/dL [facility] Cholesterol [Mass/Vol] 208 mg/dL High <200 [facility] Comment on above: Order Comment: Speci men Type: BLOOD SPECIMENOrdering Facility: [facility] Address: [address] [place] [address] Result Comment: <200 mg/dL, Desirable 200-239 mg/dL, Borderline high >239 mg/dL, High Performed By: #### 2 4323-8, 89080-2, 3016-3, LIPNF ####[facility] LABCLIA [id number] [place] [id number] [facility] HDL CHOLESTEROL, NF 57 mg/dL Normal >39 [facility] Comment on above: Order Comment: Nelsoni matthew Type: BLOOD SPECIMENOrdering Facility: [facility] Address: [address] [place] [address] Result Comment: 40-5 9 mg/dL, Acceptable >59 mg/dL, High: Negative risk factor for coronary heart disease <40 mg/dL, Low: Positive risk factor for coronary heart disease Performed By: #### 2 4323-8, 32228-9, 3016-3, LIPNF ####[facility] LABCLIA [id number] [place] [id number] [facility] LDL CHOLESTEROL CALCULATED, NF 116 mg/dL High <100 [facility] Comment on above: Order Comment: Sukhdev castro Type: BLOOD SPECIMENOrdering Facility: [facility] Address: [address] [place] [address] Result Comment: <100 mg/dL, Optimal 100-129 mg/dL, Near optimal/above optimal 130-159 mg/dL, Borderline high 160-189 mg/dL, High >189 mg/dL, Very high Secondary prevention optimal LDL Cholesterol levels are recommended to be <70 mg/dL LDL cholesterol is calculated using the Mercer-NIH equation. Performed By: #### 2 4323-8, 57323-9, 3016-3, LIPNF ####[facility] LABIA [id number] [place] [id number] [facility] LDL/HDL RATIO, NF 2.04 mg/dL Normal <2.54 [facility] Comment on above: Order Comment: Speci matthew Type: BLOOD SPECIMENOrdering Facility: [facility] Address: [address] [place] [address] Result Comment: Eneida stewart: 1. National Cholesterol Education Program ATP III Guideline At-A-Glance Quick Desk Reference: National Heart, Lung, and Blood [place]. National Institutes of Health. 2001: NIH Publication No. 01-3305. 2. An International Atherosclerosis Society position paper: global recommendations for the management of dyslipidemia: executive summary, Atherosclerosis. 2014: 232(2):410-413. Performed By: #### 2 4323-8, 81749-2, 3015-3, LIPNF ####[facility] LABCLIA [id number] [address] [address] [place] NON HDL CHOL, NF 151 mg/dL High <130 [facility] Comment on above: Order Comment: Speci men Type: BLOOD SPECIMENOrdering Facility: [facility] Address: [address] [place] [address] Result Comment: <130 mg/dL, Optimal 130-159 mg/dL, Near optimal/above optimal 160-189 mg/dL, Borderline high 190-219 mg/dL, High >219 mg/dL, Very high Secondary prevention optimal non HDL Cholesterol levels are recommended to be <100 mg/dL Performed By: #### 2 4323-8, , 3, LIPNF ####[facility] LABCLIA [id number] [place] [id number] [place] T CHOL/HDL RATIO NF 3.65 mg/dL Normal <5.10 [facility] Comment on above: Order Comment: Speci men Type: BLOOD SPECIMENOrdering Facility: [facility] Address: [address] [place] [address] Performed By: #### 2 4323-8, , 3, LIPNF ####[facility] LABCLIA [id number] [address] [address] [place] TRIGLYCERIDES, NF 204 mg/dL High <150 [facility] Comment on above: Order Comment: Speci men Type: BLOOD SPECIMENOrdering Facility: [facility] Address: [address] [place] [address] Result Comment: <150 mg/dL, Normal 150-199 mg/dL, Borderline high 200-499 mg/dL, High >499 mg/dL, Very high Performed By: #### 2 4323-8, , 3015-3, LIPNF ####[facility] LABCLIA [id number] [address] [address] [place] VLDL CHOLESTEROL, NF 35 mg/dL High <30 [facility] Comment on above: Order Comment: Speci men Type: BLOOD SPECIMENOrdering Facility: [facility] Address: [address] [place] [address] Performed By: #### 2 4323-8, 14279-2, 3, LIPNF ####[facility] LABCLIA [id number] [address] [address] [place] MAGNESIUMon 10-19-2024 Magnesium [Mass/Vol] 2.3 mg/dL 1.7 - 2 .3 mg/dL [facility] Magnesium SerPl-mCncon 10-19 Magnesium [Mass/Vol] 2.3 mg/dL Normal 1.7-2.3 [facility] Comment on above: Order Comment: Speci men Type: BLOOD SPECIMENOrdering Facility: [facility] Address: [address] [place], [place] [id number] Performed By: #### 2 4323-8, , 3, LIPNF ####[facility] LABCLIA [id number] [address] [address] [place] Magnesium [Mass/Vol]on 10-19 Interpretation and review of laboratory results Normal [facility] No Panel Informationon 10-19 Interpretation and review of laboratory results Abnormal [facility] THYROID STIMULATING HORMONEo n 10-19-2024 TSH Qn 1.38 m[IU]/L [facility] TSH Qnon 10-19-2024 Interpretation and review of laboratory results Normal [facility] TSH SerPl-aCncon 10-19-2024 TSH Qn 1.380 m[IU]/L Normal 0.270-4.200 [facility] Comment on above: Order Comment: Speci men Type: BLOOD SPECIMENOrdering Facility: [facility] Address: [address] [place], [place] [address] Performed By: #### 2 4323-8, 50388-0, 3016-3, LIPNF ####[facility] LABCLIA [id number] [place] [id number] [place] VITAMIN B12on 10-19-2024 Cobalamin (Vitamin B12) [Mass/Vol] 308 pg/mL 232 - 1245 pg/mL [facility] Vit B12 SerPl-mCncon 025 Cobalamin (Vitamin B12) [Mass/Vol] 308 pg/mL Normal 232-1245 [facility] Comment on above: Order Comment: Speci men Type: BLOOD SPECIMENOrdering Facility: [facility] Address: [address] [place] [address] Performed By: #### 2 132-9 ####[facility] LABCLIA [id number] [place] [id number] [facility] CNOVon 07-03-2024 [facility] BEVERLY GIVENS ([id number]) 1950 F NFR Date Time Provider Department 07/03/24 10:45 AM LUIS M BAEZ [facility] During your visit today, we recorded the following information about you: Temperature Pulse Respiration Blood pressure 97 degrees 102/minute 18/minute 110/73 Weight 127.1 kg Luis M Baez APRN.PERIOPERATIVE ASSISTANT 07/03/2024 12:20 PM Signed Subjective HPI Nontoxic-appearing 74-year-old female presents urgent care chief complaint cough bilateral ear pressure nasal congestion sore throat fatigue. States cough is became productive recently. Presents today for evaluation. OTC medications none. Denies chest pain shortness of breath or pleuritic pain or hemoptysis. No fevers. Past medical history prescription medications allergies reviewed .Patient presents with: Cough: Chest congestion, bilateral ears clogged x1 week, nasal congestion, ST PAST MEDICAL HISTORY Diagnosis Date Adjustment disorder 10/29/2011 Advance directive discussed with patient 10/10/2021 Discussed 10/2021 Arthritis of knee, right 12/23/2012 Arthritis of left knee 05/28/2013 BPV (benign positional vertigo), unspecified laterality 11/22/2019 Chronic pain of both shoulders 10/10/2021 Chronic pain syndrome 11/26/2015 Sees Chronic sacroiliac (SI) strain 08/27/2013 DDD (degenerative disc disease), lumbar 07/26/2014 Ex-smoker 03/17/2019 Quit 09/2018 Fibromyalgia 06/06/2009 Foot callus 11/29/2020 Gastroesophageal reflux disease without esophagitis 10/02/2016 Generalized anxiety disorder 03/13/2006 Generalized osteoarthrosis, unspecified site Glaucoma History of knee replacement procedure of right knee Hx of colonic polyp 08/19/2018 Hypertension, essential 04/12/2022 Low serum vitamin B12 10/10/2021 Lumbago 05/19/2015 Medicare annual wellness visit, subsequent 08/05/2017 last done: 11/22/19 Medical B eligibilty date 06/12/2016 Mixed hyperlipidemia 02/12/2005 WHIT (obstructive sleep apnea) 07/04/2010 Titration done 01/2013 IMPRESSION: 1. At a CPAP setting of 12 cmH2O, the apnea-hypopnea and arousal indices were normalized. At this setting, snoring was eliminated and the oxygen saturation was maintained above 90%. Of note, both REM and supine sleep were present when this setting was tested. 2. Abnormal sleep architecture likely due to respiratory events, PAP titration, first night effect. RECOMMENDATIONS: CPAP 12 cmH20 with humidification. INTERPRETING PHYSICIAN: David Wolfe MD PSG done @ [facility] AHI 11. Complete report has been scanned into [employer]. Neurology procedures. Osteopenia 06/07/2008 Osteopenia, senile 06/07/2008 Primary osteoarthritis of right hip 03/28/2023 Recurrent major depression in partial remission (HCC) 05/30/2005 Stasis dermatitis of right lower extremity due to peripheral venous hypertension 04/02/2016 Status post left hip replacement PAST SURGICAL HISTORY Procedure Laterality Date ARTHROSCOPY KNEE DIAGNOSTIC W/WO SYNOVIAL BX SPX Arthroscopy, left knee ARTHRP ACETBLR/PROX FEM PROSTC AGRFT/ALGRFT left Hip replacement, total ARTHRP KNE CONDYLEANDPLATU MEDIALANDLAT COMPARTMENTS 05/31/13 Knee replacement, total bilateral COLONOSCOPY FLX DX W/COLLJ SPEC WHEN PFRMD 03/03/2013 Colonoscopy, repeat 5 yrs DILATION AND CURETTAGE DXAND/THER NONOBSTETRIC Dilation AND curettage ESOPHAGOGASTRODUODENOS COPY TRANSORAL DIAGNOSTIC 03/03/13 EGD EXC CYST/ABERRANT BREAST TISSUE OPEN 1/> LESION 07/19/09 Exc upper inner left breast SC mass HYSTEROSCOPY, DIAGNOSTIC (SEPARATE Hysteroscopy ALLERGIES Famciclovir, Fentanyl, Lamictal [Lamotrigine], Lyrica [Pregabalin], Oxycontin [Oxycodone Hcl], Wellbutrin [Bupropion Hcl], Atarax [Hydroxyzine], Niacin, and Prevacid [Lansoprazole] MEDICATIONS SITagliptin phosphate (JANUVIA) 100 mg tablet Take 1 tablet by mouth once daily. busPIRone (BUSPAR) 15 mg tablet Take 1 tablet by mouth two times a day. atorvastatin (LIPITOR) 40 mg tablet Take 1 tablet by mouth once daily. FLUoxetine (PROZAC) 20 mg capsule Take 2 capsules by mouth once daily. metFORMIN ER (GLUCOPHAGE XR) 500 mg 24 hr tablet Take 2 tablets by mouth two times a day. pantoprazole DR (PROTONIX) 20 mg tablet take 1 tablet daily 1/2 hour before breakfast on an empty stomach glimepiride (AMARYL) 4 mg tablet Take 1 tablet by mouth two times a day with meals. amLODIPine (NORVASC) 10 mg tablet Take 1 tablet by mouth once daily. meloxicam (MOBIC) 15 mg tablet Take 1 tablet by mouth once daily. With food. lisinopril (ZESTRIL) 30 mg tablet Take 1 tablet by mouth once daily. blood sugar diagnostic (BLOOD GLUCOSE TEST) test strip Test blood sugar(s) 2 times daily. Dx: Other DM Code E11.29 Insulin: No A1c 7.5% 09/05/2021 cyclobenzaprine (FLEXERIL) 10 mg tablet Take 1 tablet by mouth two times a day as needed. albuterol HFA ( (more content not included)... Normal [facility] A MOLECULAR (POC)on Procedural Control Valid [facility] Strep A (POCT) Negative Negative [facility] XR CHEST 2V FRONTAL/LATon XR CHEST 2V FRONTAL/LAT * * *Final Report* * * DATE OF EXAM: Jul 03 2024 11:21AM WOX [id number] - XR CHEST 2V FRONTAL/LAT / PROCEDURE REASON: Acute cough * * * * Physician Interpretation * * * * EXAMINATION: CHEST RADIOGRAPH (2 VIEW FRONTAL and LATERAL) PATIENT/TECHNOLOGIST PROVIDED HISTORY: cough, congestion and sore throat for 2 weeks CLINICAL HISTORY: 74 years old Female with Acute cough MQ: XC2_6 EXAM DATE/TIME: 07/03/2024 11:21 AM COMPARISON: Chest radiograph(s) dated 02/18/2019 RESULT: Lines, tubes, and devices: None. Lungs and pleura: No consolidation. No pleural effusion. No pneumothorax. Cardiomediastinal silhouette: Normal cardiomediastinal silhouette. Bones and soft tissues: Degenerative changes in the thoracic spine and probable diffuse idiopathic skeletal hyperostosis. IMPRESSION: No acute radiographic abnormality. Scientific Research Associate: CATHY Transcribe Date/Time: Jul 03 2024 12:14P Dictated by : SUKHDEEP BOSE DO This examination was interpreted and the report reviewed and electronically signed by: SUKHDEEP BOSE DO on Jul 03 2024 12:15PM EST [id number] Normal [facility] XR Chest PA and Lateralon IMPRESSION: No acute radiographic abnormality. Scientific Research Associate: JAMILAHB Transcribe Date/Time: Jul 03 2024 12:14P Dictated by : SUKHDEEP BOSE DO This examination was interpreted and the report reviewed and electronically signed by: SUKHDEEP BOSE DO on Jul 03 2024 12:15PM EST DIVISION OF RADIOLOGY * * *Final Report* * * DATE OF EXAM: Jul 03 2024 11:21AM WOX [id number] - XR CHEST 2V FRONTAL/LAT / PROCEDURE REASON: Acute cough * * * * Physician Interpretation * * * * EXAMINATION: CHEST RADIOGRAPH (2 VIEW FRONTAL & LATERAL) PATIENT/TECHNOLOGIST PROVIDED HISTORY: cough, congestion and sore throat for 2 weeks CLINICAL HISTORY: 74 years old Female with Acute cough MQ: XC2_6 EXAM DATE/TIME: 07/03/2024 11:21 AM COMPARISON: Chest radiograph(s) dated 02/18/2019 RESULT: Lines, tubes, and devices: None. Lungs and pleura: No consolidation. No pleural effusion. No pneumothorax. Cardiomediastinal silhouette: Normal cardiomediastinal silhouette. Bones and soft tissues: Degenerative changes in the thoracic spine and probable diffuse idiopathic skeletal hyperostosis. DIVISION OF RADIOLOGY Provider, Chichi Villatoro - 07/03/2024 * * *Final Report* * * DATE OF EXAM: Jul 03 2024 11:21AM WOX 5291 - XR CHEST 2V FRONTAL/LAT / PROCEDURE REASON: Acute cough * * * * Physician Interpretation * * * * EXAMINATION: CHEST RADIOGRAPH (2 VIEW FRONTAL & LATERAL) PATIENT/TECHNOLOGIST PROVIDED HISTORY: cough, congestion and sore throat for 2 weeks CLINICAL HISTORY: 74 years old Female with Acute cough MQ: XC2_6 EXAM DATE/TIME: 07/03/2024 11:21 AM COMPARISON: Chest radiograph(s) dated 02/18/2019 RESULT: Lines, tubes, and devices: None. Lungs and pleura: No consolidation. No pleural effusion. No pneumothorax. Cardiomediastinal silhouette: Normal cardiomediastinal silhouette. Bones and soft tissues: Degenerative changes in the thoracic spine and probable diffuse idiopathic skeletal hyperostosis. IMPRESSION IMPRESSION: No acute radiographic abnormality. Scientific Research Associate: [facility] Transcribe Date/Time: Jul 03 2024 12:14P Dictated by : SUKHDEEP BOSE DO This examination was interpreted and the report reviewed and electronically signed by: SUKHDEEP BOSE DO on Jul 03 2024 12:15PM [facility] Radiology Study observation (narrative) [facility] XR Chest PA and LateralOrder ed By: Ccleela Provider on 07-03-2024 [facility] Laila 04-20-2024 CNPN Telephone (FAMPWS) BEVERLY GIVENS ([id number]) 1950 F NFR Date Time Provider Department 04/20/24 TEDDY COX During your visit today, we recorded the following information about you: Teddy Cox APRN.PERIOPERATIVE ASSISTANT 04/20/2024 8:01 AM Signed Please let patient know her hgba1c has improved and her lipids are stable. Nereyda Sullivan MA 04/20/2024 8:49 AM Signed Pt notified and verbalized understanding Nereyda Sullivan MA Allergies As of Date: 04/20/2024 Noted Allergy Reaction FAMCICLOVIR 11/25/2011 2 - Rash Comments: large vesicles of fingers (2 fingers) FENTANYL 09/28/2013 1 - Mental Status Change Comments: patches LAMICTAL (LAMOTRIGINE) 07/13/2009 1 - Mental Status Change Comments: mental cloudy LYRICA (PREGABALIN) 07/26/2014 14 - Other: See Comments Comments: Increased depression OXYCONTIN (OXYCODONE HCL) 10/18/2014 14 - Other: See Comments Comments: Anxiety, depression WELLBUTRIN (BUPROPION HCL) 10/06/2014 5 - Intolerance Comments: Mental status change ATARAX (HYDROXYZINE) 04/06/2021 1 - Mental Status Change NIACIN 03/13/2006 14 - Other: See Comments Comments: depression PREVACID (LANSOPRAZOLE) 02/21/2005 16 - Unknown Date Reviewed: 04/19/2024 Reviewed by: Nereyda Sullivan MA - Fully Assessed Reason for Visit: Results [95] Prescriptions as of 04/20/2024 - amLODIPine (NORVASC) 10 mg tablet Take 1 tablet by mouth once daily. - glimepiride (AMARYL) 4 mg tablet Take 1 tablet by mouth two times a day with meals. - meloxicam (MOBIC) 15 mg tablet Take 1 tablet by mouth once daily. With food. - lisinopril (ZESTRIL) 30 mg tablet Take 1 tablet by mouth once daily. - blood sugar diagnostic (BLOOD GLUCOSE TEST) test strip Test blood sugar(s) 2 times daily. Dx: Other DM Code E11.29 Insulin: No A1c 7.5% 09/05/2021 - cyclobenzaprine (FLEXERIL) 10 mg tablet Take 1 tablet by mouth two times a day as needed. - metFORMIN ER (GLUCOPHAGE XR) 500 mg 24 hr tablet Take 2 tablets by mouth two times a day. - pantoprazole DR (PROTONIX) 20 mg tablet take 1 tablet daily 1/2 hour before breakfast on an empty stomach - SITagliptin phosphate (JANUVIA) 100 mg tablet Take 1 tablet by mouth once daily. - albuterol HFA (PROVENTIL HFA, VENTOLIN HFA) 90 mcg/actuation inhaler Inhale 2 Puffs as instructed every 4 hours as needed. - atorvastatin (LIPITOR) 40 mg tablet Take 1 tablet by mouth once daily. - busPIRone (BUSPAR) 15 mg tablet Take 1 tablet by mouth two times a day. - FLUoxetine (PROZAC) 20 mg capsule Take 2 capsules by mouth once daily. - pioglitazone (ACTOS) 45 mg tablet Take 1 tablet by mouth once daily. - fluticasone (FLONASE) 50 mcg/actuation nasal spray Use 2 Sprays in each nostril once daily. Rinse mouth after use. - Lancets lancets Test blood sugar(s) 2 times daily. Dx: Other DM Code 11.29 Insulin: No, A1c 7.5% 09/05/2021 - meclizine (ANTIVERT) 25 mg tab Take 1 tablet by mouth every 6 hours as needed (dizziness). - cholecalciferol (VITAMIN D) 1,000 unit tab tablet Take 1 tablet by mouth once daily. Take 4 tablets daily - Multivitamin capsule Take 1 capsule by mouth once daily. - aspirin, enteric coated (ADULT ASPIRIN REGIMEN) 81 mg EC tablet Take 1 tablet by mouth once daily. - COMPOUNDED PRESCRIPTION Compression stockings, thigh high 15-20mmHg Dx: leg edema Meds Comments as of 08/19/2018: Multivitamin 8 hour arthritis pain relief Ty-s - Stress management Probiotic 50 billion Problem List As Of Date 04/20/2024 Noted Resolved Mixed hyperlipidemia [E78.2] 02/12/2005 Recurrent major depression in partial remission*05/30/2005 Generalized anxiety disorder [F41.1] 03/13/2006 Osteopenia, senile [M85.80] 06/07/2008 Fibromyalgia [M79.7] 06/06/2009 WHIT (obstructive sleep apnea) [G47.33] 07/04/2010 Adjustment disorder [F43.20] 10/29/2011 Arthritis of knee, right [M17.11] 12/23/2012 Arthritis of left knee [M17.12] 05/28/2013 Chronic sacroiliac (SI) strain [S39.012A] 08/27/2013 DDD (degenerative disc disease), lumbar [M51.36*07/26/2014 Diabetes mellitus type 2 with ketoacidosis, unc*03/01/2015 05/28/2015 Lumbago [M54.50] 05/19/2015 Type 2 diabetes mellitus with renal complicatio*08/02/2015 Chronic pain syndrome [G89.4] 11/26/2015 Stasis dermatitis of right lower extremity due *04/02/2016 Generalized osteoarthrosis, unspecified site [M* 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 Normal [facility] CNOVon 04-19-2024 CNOV Office Visit (FAMPWS ) BEVERLY GIVENS ([id number]) 1950 F NFR Date Time Provider Department 04/19/24 1:00 PM TEDDY COXPWS During your visit today, we recorded the following information about you: Pulse Blood pressure Weight 128/minute 105/67 123.4 kg Teddy Cox APRN.ELOISA 04/19/2024 1:21 PM Signed Chief Complaint Patient presents with: 6 Month Exam HPI Beverly Givens is a 73 year old female who presents here today for Above Complaints.. Patient presents for routine follow up. Patient reports she would like a referral for a second opinion regarding her hip pain. Was seen in March 2023 and told she had bursitis but pain has continued. Not responsive to OTC treatment. Occasionally improved with stretching but never goes away completely. Past medical history, appointments, medications, allergies reviewed. Previous Medical History PAST MEDICAL HISTORY Diagnosis Date Adjustment disorder 10/29/2011 Advance directive discussed with patient 10/10/2021 Discussed 10/2021 Arthritis of knee, right 12/23/2012 Arthritis of left knee 05/28/2013 BPV (benign positional vertigo), unspecified laterality 11/22/2019 Chronic pain of both shoulders 10/10/2021 Chronic pain syndrome 11/26/2015 Sees Chronic sacroiliac (SI) strain 08/27/2013 DDD (degenerative disc disease), lumbar 07/26/2014 Ex-smoker 03/17/2019 Quit 09/2018 Fibromyalgia 06/06/2009 Foot callus 11/29/2020 Gastroesophageal reflux disease without esophagitis 10/02/2016 Generalized anxiety disorder 03/13/2006 Generalized osteoarthrosis, unspecified site Glaucoma History of knee replacement procedure of right knee Hx of colonic polyp 08/19/2018 Hypertension, essential 04/12/2022 Low serum vitamin B12 10/10/2021 Lumbago 05/19/2015 Medicare annual wellness visit, subsequent 08/05/2017 last done: 11/22/19 Medical B eligibilty date 06/12/2016 Mixed hyperlipidemia 02/12/2005 WHIT (obstructive sleep apnea) 07/04/2010 Titration done 01/2013 IMPRESSION: 1. At a CPAP setting of 12 cmH2O, the apnea-hypopnea and arousal indices were normalized. At this setting, snoring was eliminated and the oxygen saturation was maintained above 90%. Of note, both REM and supine sleep were present when this setting was tested. 2. Abnormal sleep architecture likely due to respiratory events, PAP titration, first night effect. RECOMMENDATIONS: CPAP 12 cmH20 with humidification. INTERPRETING PHYSICIAN: David Wolfe MD PSG done @ [facility] 11. Complete report has been scanned into [facility]. Neurology procedures. Osteopenia 06/07/2008 Osteopenia, senile 06/07/2008 Primary osteoarthritis of right hip 03/28/2023 Recurrent major depression in partial remission (HCC) 05/30/2005 Stasis dermatitis of right lower extremity due to peripheral venous hypertension 04/02/2016 Status post left hip replacement Previous Surgical History PAST SURGICAL HISTORY Procedure Laterality Date ARTHROSCOPY KNEE DIAGNOSTIC W/WO SYNOVIAL BX SPX Arthroscopy, left knee ARTHRP ACETBLR/PROX FEM PROSTC AGRFT/ALGRFT left Hip replacement, total ARTHRP KNE CONDYLEANDPLATU MEDIALANDLAT COMPARTMENTS 05/31/13 Knee replacement, total bilateral COLONOSCOPY FLX DX W/COLLJ SPEC WHEN PFRMD 03/03/2013 Colonoscopy, repeat 5 yrs DILATION AND CURETTAGE DXAND/THER NONOBSTETRIC Dilation AND curettage ESOPHAGOGASTRODUODENOS COPY TRANSORAL DIAGNOSTIC 03/03/13 EGD EXC CYST/ABERRANT BREAST TISSUE OPEN 1/> LESION 07/19/09 Exc upper inner left breast SC mass HYSTEROSCOPY, DIAGNOSTIC (SEPARATE Hysteroscopy Family History FAMILY HISTORY Problem Relation Age of Onset Osteoporosis Mother Cancer Mother skin Colon Cancer Mother 88 Diabetes Father Cancer Sister breast other (Other) Other fibromyalgia Patient Allergies ALLERGIES Allergen Reactions Famciclovir Rash large vesicles of fingers (2 fingers) Fentanyl Mental Status Change patches Lamictal [Lamotrigi* Mental Status Change mental cloudy Lyrica [Pregabalin] Other: See Comments Increased depression Oxycontin [Oxycodon* Other: See Comments Anxiety, depression Wellbutrin [Bupropi* Intolerance Mental status change Atarax [Hydroxyzine] Mental Status Change Niacin Other: See Comments depression Prevacid [Lansopraz* Unknown Current Medications Current Outpatient Medications on File Prior to Visit Medication Sig amLODIPine (NORVASC) 10 mg tablet Take 1 tablet by mouth once daily. glimepiride (AMARYL) 4 mg tablet Take 1 tablet by mouth two times a day with meals. meloxicam (MOBIC) 15 mg tablet Take 1 tablet by mouth once daily. With food. lisinopril (ZESTRIL) 30 mg tablet Take 1 tablet by mouth once daily. blood sugar diagnostic (BLOOD GLUCOSE TEST) test strip Test blood sugar(s) 2 times daily. Dx: Other DM Code E11.29 Insulin: No A1c (more content not included)... Normal [facility] HbA1c (Bld)on 04-19-2024 Average glucose Estimated from glycated hemoglobin (Bld) [Mass/Vol] 154 mg/dL Normal [facility] Comment on above: Order Comment: Sukhdev castro Type: BLOOD SPECIMENOrdering Facility: [facility] Address: [address] [place] [address] Result Comment: eAG: (Estimated average glucose) is a calculated value from HgbA1c and is community representative of the average blood glucose level in the last 2-3 month period. Performed By: #### 5 5454-3 ####[facility] [id number] [place] [address] [place] HbA1c (Bld) [Mass fraction] 7.0 % High 4.3-5.6 [facility] Comment on above: Order Comment: Sukhdev castro Type: BLOOD SPECIMENOrdering Facility: [facility] Address: [address] [place] [address] Result Comment: Amer ican Diabetes Association guidelines indicate that patients with HgbA1c in the range 5.7-6.4% are at increased risk for development of diabetes, and intervention by lifestyle modification may be beneficial. HgbA1c greater or equal to 6.5% is considered diagnostic of diabetes. Performed By: #### 5 5454-3 ####[facility] [id number] [place] [address] [place] LIPID PANEL, NONFASTINGon Cholesterol [Mass/Vol] 178 mg/dL Normal <200 [facility] Comment on above: Order Comment: Sukhdev castro Type: BLOOD SPECIMENOrdering Facility: [facility] Address: [address] [place] [address] Result Comment: <200 mg/dL, Desirable 200-239 mg/dL, Borderline high >239 mg/dL, High Performed By: #### L IPNF ####[facility] [id number] HDL CHOLESTEROL, NF 64 mg/dL Normal >39 [facility] Comment on above: Order Comment: Nelsonjoy castro Type: BLOOD SPECIMENOrdering Facility: [facility] Address: [address] [place] [address] Result Comment: 40-5 9 mg/dL, Acceptable >59 mg/dL, High: Negative risk factor for coronary heart disease <40 mg/dL, Low: Positive risk factor for coronary heart disease Performed By: #### L IPNF ####[facility] [id number] [address] OF [facility] LDL CHOLESTEROL, NF 81 mg/dL Normal <100 [facility] Comment on above: Order Comment: Sukhdev matthew Type: BLOOD SPECIMENOrdering Facility: [facility] Address: [address] [place] [address] Result Comment: <100 mg/dL, Optimal 100-129 mg/dL, Near optimal/above optimal 130-159 mg/dL, Borderline high 160-189 mg/dL, High >189 mg/dL, Very high Secondary prevention optimal LDL Cholesterol levels are recommended to be < 70 mg/dL Performed By: #### L IPNF ####[facility] [id number] [address] LDL/HDL RATIO, NF 1.27 mg/dL Normal <2.54 [facility] Comment on above: Order Comment: Sukhdev castro Type: BLOOD SPECIMENOrdering Facility: [facility] Address: [address] [place] [address] Result Comment: Refe rence: 1. National Cholesterol Education Program ATP III Guideline At-A-Glance Quick Desk Reference: National Heart, Lung, and Blood [place]. National Institutes of Health. 2001: NIH Publication No. 01-3305. 2. An International Atherosclerosis Society position paper: global recommendations for the management of dyslipidemia: executive summary, Atherosclerosis. 2014: 232(2):410-413. Performed By: #### L IPNF ####[facility] [id number] [place] [address] [place] NON HDL CHOL, NF 114 mg/dL Normal <130 [facility] Comment on above: Order Comment: Speci men Type: BLOOD SPECIMENOrdering Facility: [facility] Address: [address] [place] [address] Result Comment: <130 mg/dL, Optimal 130-159 mg/dL, Near optimal/above optimal 160-189 mg/dL, Borderline high 190-219 mg/dL, High >219 mg/dL, Very high Secondary prevention optimal non HDL Cholesterol levels are recommended to be <100 mg/dL Performed By: #### L IPNF ####[facility] [id number] [place] [address] [place] T CHOL/HDL RATIO NF 2.78 mg/dL Normal <5.10 [facility] Comment on above: Order Comment: Speci men Type: BLOOD SPECIMENOrdering Facility: [facility] Address: [address] [place] [address] Performed By: #### L IPNF ####[facility] [id number] [place] [address] [place] TRIGLYCERIDES, NF 164 mg/dL High <150 [facility] Comment on above: Order Comment: Speci men Type: BLOOD SPECIMENOrdering Facility: [facility] Address: [address] [place] [address] Result Comment: <150 mg/dL, Normal 150-199 mg/dL, Borderline high 200-499 mg/dL, High >499 mg/dL, Very high Performed By: #### L IPNF ####[facility] [id number] [place] [address] [place] VLDL CHOLESTEROL, NF 33 mg/dL High <30 [facility] Comment on above: Order Comment: Speci men Type: BLOOD SPECIMENOrdering Facility: [facility] Address: [address] [place] [address] Performed By: #### L IPNF ####[facility] [id number] [facility] [place] [id number] [place] [address] [place] CNPMona 02-16-2024 CNPN Telephone (FAMPWS) BEVERLY GIVENS ([id number]) 1950 F NFR Date Time Provider Department 02/16/24 LUIS M JOHNSON During your visit today, we recorded the following information about you: Usha Leos 02/16/2024 1:35 PM Signed Patient called to advise pcp office that she got her COVID and flu vaccines today at [facility] in [place]. She would like it updated in her chart. Katlyn Almanza MA 02/16/2024 1:43 PM Signed HM updated. Katlyn Almanza MA Allergies As of Date: 02/16/2024 Noted Allergy Reaction FAMCICLOVIR 11/25/2011 2 - Rash Comments: large vesicles of fingers (2 fingers) FENTANYL 09/28/2013 1 - Mental Status Change Comments: patches LAMICTAL (LAMOTRIGINE) 07/13/2009 1 - Mental Status Change Comments: mental cloudy LYRICA (PREGABALIN) 07/26/2014 14 - Other: See Comments Comments: Increased depression OXYCONTIN (OXYCODONE HCL) 10/18/2014 14 - Other: See Comments Comments: Anxiety, depression WELLBUTRIN (BUPROPION HCL) 10/06/2014 5 - Intolerance Comments: Mental status change ATARAX (HYDROXYZINE) 04/06/2021 1 - Mental Status Change NIACIN 03/13/2006 14 - Other: See Comments Comments: depression PREVACID (LANSOPRAZOLE) 02/21/2005 16 - Unknown Date Reviewed: 10/17/2023 Reviewed by: Luis M Johnson MD - Fully Assessed Reason for Visit: Immunization update [Other] Prescriptions as of 02/16/2024 - amLODIPine (NORVASC) 10 mg tablet Take 1 tablet by mouth once daily. - glimepiride (AMARYL) 4 mg tablet Take 1 tablet by mouth two times a day with meals. - meloxicam (MOBIC) 15 mg tablet Take 1 tablet by mouth once daily. With food. - lisinopril (ZESTRIL) 30 mg tablet Take 1 tablet by mouth once daily. - blood sugar diagnostic (BLOOD GLUCOSE TEST) test strip Test blood sugar(s) 2 times daily. Dx: Other DM Code E11.29 Insulin: No A1c 7.5% 09/05/2021 - cyclobenzaprine (FLEXERIL) 10 mg tablet Take 1 tablet by mouth two times a day as needed. - metFORMIN ER (GLUCOPHAGE XR) 500 mg 24 hr tablet Take 2 tablets by mouth two times a day. - pantoprazole DR (PROTONIX) 20 mg tablet take 1 tablet daily 1/2 hour before breakfast on an empty stomach - SITagliptin phosphate (JANUVIA) 100 mg tablet Take 1 tablet by mouth once daily. - albuterol HFA (PROVENTIL HFA, VENTOLIN HFA) 90 mcg/actuation inhaler Inhale 2 Puffs as instructed every 4 hours as needed. - atorvastatin (LIPITOR) 40 mg tablet Take 1 tablet by mouth once daily. - busPIRone (BUSPAR) 15 mg tablet Take 1 tablet by mouth two times a day. - FLUoxetine (PROZAC) 20 mg capsule Take 2 capsules by mouth once daily. - pioglitazone (ACTOS) 45 mg tablet Take 1 tablet by mouth once daily. - fluticasone (FLONASE) 50 mcg/actuation nasal spray Use 2 Sprays in each nostril once daily. Rinse mouth after use. - Lancets lancets Test blood sugar(s) 2 times daily. Dx: Other DM Code 11.29 Insulin: No, A1c 7.5% 09/05/2021 - meclizine (ANTIVERT) 25 mg tab Take 1 tablet by mouth every 6 hours as needed (dizziness). - cholecalciferol (VITAMIN D) 1,000 unit tab tablet Take 1 tablet by mouth once daily. Take 4 tablets daily - Multivitamin capsule Take 1 capsule by mouth once daily. - aspirin, enteric coated (ADULT ASPIRIN REGIMEN) 81 mg EC tablet Take 1 tablet by mouth once daily. - omega-3 fatty acids 1,000 mg cap Take 2 capsules by mouth once daily. - COMPOUNDED PRESCRIPTION Compression stockings, thigh high 15-20mmHg Dx: leg edema Meds Comments as of 08/19/2018: Multivitamin 8 hour arthritis pain relief Ty-s - Stress management Probiotic 50 billion Problem List As Of Date 02/16/2024 Noted Resolved Mixed hyperlipidemia [E78.2] 02/12/2005 Recurrent major depression in partial remission*05/30/2005 Generalized anxiety disorder [F41.1] 03/13/2006 Osteopenia, senile [M85.80] 06/07/2008 Fibromyalgia [M79.7] 06/06/2009 WHIT (obstructive sleep apnea) [G47.33] 07/04/2010 Adjustment disorder [F43.20] 10/29/2011 Arthritis of knee, right [M17.11] 12/23/2012 Arthritis of left knee [M17.12] 05/28/2013 Chronic sacroiliac (SI) strain [S39.012A] 08/27/2013 DDD (degenerative disc disease), lumbar [M51.36*07/26/2014 Diabetes mellitus type 2 with ketoacidosis, [facility]*03/01/2015 05/28/2015 Lumbago [M54.50] 05/19/2015 Type 2 diabetes mellitus with renal complicatio*08/02/2015 Chronic pain syndrome [G89.4] 11/26/2015 Stasis dermatitis of right lower extremity due *04/02/2016 Generalized osteoarthrosis, unspecified site [M* 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 Normal [facility] Laila 11-10-2023 CNPN Telephone (FAMPWS) BEVERLY GIVENS ([id number]) 1950 F NFR Date Time Provider Department 11/10/23 SUMMER TELLES During your visit today, we recorded the following information about you: Summer Telles PA-C 11/10/2023 2:24 PM Signed Vit d level is normal. Bairon Collado LPN 11/10/2023 2:40 PM Signed Pt notified of same. Pt advises that she has not started taking the Januvia yet. It was more expensive than she realized at the time that she went to get it but advises that she will be picking it up soon and starting it. Bairon Collado LPN Allergies As of Date: 11/10/2023 Noted Allergy Reaction FAMCICLOVIR 11/25/2011 2 - Rash Comments: large vesicles of fingers (2 fingers) FENTANYL 09/28/2013 1 - Mental Status Change Comments: patches LAMICTAL (LAMOTRIGINE) 07/13/2009 1 - Mental Status Change Comments: mental cloudy LYRICA (PREGABALIN) 07/26/2014 14 - Other: See Comments Comments: Increased depression OXYCONTIN (OXYCODONE HCL) 10/18/2014 14 - Other: See Comments Comments: Anxiety, depression WELLBUTRIN (BUPROPION HCL) 10/06/2014 5 - Intolerance Comments: Mental status change ATARAX (HYDROXYZINE) 04/06/2021 1 - Mental Status Change NIACIN 03/13/2006 14 - Other: See Comments Comments: depression PREVACID (LANSOPRAZOLE) 02/21/2005 16 - Unknown Date Reviewed: 10/17/2023 Reviewed by: Luis M Johnson MD - Fully Assessed Reason for Visit: Results [95] Prescriptions as of 11/10/2023 - glimepiride (AMARYL) 4 mg tablet Take 1 tablet by mouth two times a day with meals. - blood sugar diagnostic (BLOOD GLUCOSE TEST) test strip Test blood sugar(s) 2 times daily. Dx: Other DM Code E11.29 Insulin: No A1c 7.5% 09/05/2021 - cyclobenzaprine (FLEXERIL) 10 mg tablet Take 1 tablet by mouth two times a day as needed. - metFORMIN ER (GLUCOPHAGE XR) 500 mg 24 hr tablet Take 2 tablets by mouth two times a day. - pantoprazole DR (PROTONIX) 20 mg tablet take 1 tablet daily 1/2 hour before breakfast on an empty stomach - SITagliptin phosphate (JANUVIA) 100 mg tablet Take 1 tablet by mouth once daily. - albuterol HFA (PROVENTIL HFA, VENTOLIN HFA) 90 mcg/actuation inhaler Inhale 2 Puffs as instructed every 4 hours as needed. - atorvastatin (LIPITOR) 40 mg tablet Take 1 tablet by mouth once daily. - busPIRone (BUSPAR) 15 mg tablet Take 1 tablet by mouth two times a day. - FLUoxetine (PROZAC) 20 mg capsule Take 2 capsules by mouth once daily. - lisinopril (ZESTRIL) 30 mg tablet Take 1 tablet by mouth once daily. - amLODIPine (NORVASC) 10 mg tablet Take 1 tablet by mouth once daily. - meloxicam (MOBIC) 15 mg tablet Take 1 tablet by mouth once daily. With food. - pioglitazone (ACTOS) 45 mg tablet Take 1 tablet by mouth once daily. - fluticasone (FLONASE) 50 mcg/actuation nasal spray Use 2 Sprays in each nostril once daily. Rinse mouth after use. - Lancets lancets Test blood sugar(s) 2 times daily. Dx: Other DM Code 11.29 Insulin: No, A1c 7.5% 09/05/2021 - meclizine (ANTIVERT) 25 mg tab Take 1 tablet by mouth every 6 hours as needed (dizziness). - cholecalciferol (VITAMIN D) 1,000 unit tab tablet Take 1 tablet by mouth once daily. Take 4 tablets daily - Multivitamin capsule Take 1 capsule by mouth once daily. - aspirin, enteric coated (ADULT ASPIRIN REGIMEN) 81 mg EC tablet Take 1 tablet by mouth once daily. - omega-3 fatty acids 1,000 mg cap Take 2 capsules by mouth once daily. - COMPOUNDED PRESCRIPTION Compression stockings, thigh high 15-20mmHg Dx: leg edema Meds Comments as of 08/19/2018: Multivitamin 8 hour arthritis pain relief Ty-s - Stress management Probiotic 50 billion Problem List As Of Date 11/10/2023 Noted Resolved Mixed hyperlipidemia [E78.2] 02/12/2005 Recurrent major depression in partial remission*05/30/2005 Generalized anxiety disorder [F41.1] 03/13/2006 Osteopenia, senile [M85.80] 06/07/2008 Fibromyalgia [M79.7] 06/06/2009 WHIT (obstructive sleep apnea) [G47.33] 07/04/2010 Adjustment disorder [F43.20] 10/29/2011 Arthritis of knee, right [M17.11] 12/23/2012 Arthritis of left knee [M17.12] 05/28/2013 Chronic sacroiliac (SI) strain [S39.012A] 08/27/2013 DDD (degenerative disc disease), lumbar [M51.36]07/26/2014 Diabetes mellitus type 2 with ketoacidosis, [facility]*03/01/2015 05/28/2015 Lumbago [M54.50] 05/19/2015 Type 2 diabetes mellitus with renal complicatio*08/02/2015 Chronic pain syndrome [G89.4] 11/26/2015 Stasis dermatitis of right lower extremity due *04/02/2016 Generalized osteoarthrosis, unspecified site [M* 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 Normal [facility] 25-hydroxyvitamin D3 [Mass/Vol] 49.3 ng/mL Normal 31.0-80.0 [facility] Comment on above: Order Comment: Speci men Type: BLOOD SPECIMENOrdering Facility: [facility] Address: [address] [place] [address] Result Comment: Clas sification of 25 OH Vitamin D status: Deficiency/Insufficiency: < or = 30 ng/ml. Sufficiency/Optimal Levels: 31-80 ng/mL Toxicity: > 100 ng/mL. Test performed by chemiluminescent immunoassay. Performed By: #### 1 989-3 ####[facility] [id number] [place] [id number] [place] CNPMona 11-04-2023 CNPN Telephone (FAMPWS) BEVERLY GIVENS ([id number]) 1950 F NFR Date Time Provider Department 11/04/23 LUIS M JOHNSON [facility] During your visit today, we recorded the following information about you: Luis M Johnson MD 11/04/2023 10:39 PM Signed Let patient know bone strength study was normal. Katlyn Almanza MA 11/05/2023 8:32 AM Signed Left detailed message for patient with results. Katlyn Almanza MA Allergies As of Date: 11/04/2023 Noted Allergy Reaction FAMCICLOVIR 11/25/2011 2 - Rash Comments: large vesicles of fingers (2 fingers) FENTANYL 09/28/2013 1 - Mental Status Change Comments: patches LAMICTAL (LAMOTRIGINE) 07/13/2009 1 - Mental Status Change Comments: mental cloudy LYRICA (PREGABALIN) 07/26/2014 14 - Other: See Comments Comments: Increased depression OXYCONTIN (OXYCODONE HCL) 10/18/2014 14 - Other: See Comments Comments: Anxiety, depression WELLBUTRIN (BUPROPION HCL) 10/06/2014 5 - Intolerance Comments: Mental status change ATARAX (HYDROXYZINE) 04/06/2021 1 - Mental Status Change NIACIN 03/13/2006 14 - Other: See Comments Comments: depression PREVACID (LANSOPRAZOLE) 02/21/2005 16 - Unknown Date Reviewed: 10/17/2023 Reviewed by: Luis M Johnson MD - Fully Assessed Reason for Visit: Results [95] Prescriptions as of 11/05/2023 - glimepiride (AMARYL) 4 mg tablet Take 1 tablet by mouth two times a day with meals. - blood sugar diagnostic (BLOOD GLUCOSE TEST) test strip Test blood sugar(s) 2 times daily. Dx: Other DM Code E11.29 Insulin: No A1c 7.5% 09/05/2021 - cyclobenzaprine (FLEXERIL) 10 mg tablet Take 1 tablet by mouth two times a day as needed. - metFORMIN ER (GLUCOPHAGE XR) 500 mg 24 hr tablet Take 2 tablets by mouth two times a day. - pantoprazole DR (PROTONIX) 20 mg tablet take 1 tablet daily 1/2 hour before breakfast on an empty stomach - SITagliptin phosphate (JANUVIA) 100 mg tablet Take 1 tablet by mouth once daily. - albuterol HFA (PROVENTIL HFA, VENTOLIN HFA) 90 mcg/actuation inhaler Inhale 2 Puffs as instructed every 4 hours as needed. - atorvastatin (LIPITOR) 40 mg tablet Take 1 tablet by mouth once daily. - busPIRone (BUSPAR) 15 mg tablet Take 1 tablet by mouth two times a day. - FLUoxetine (PROZAC) 20 mg capsule Take 2 capsules by mouth once daily. - lisinopril (ZESTRIL) 30 mg tablet Take 1 tablet by mouth once daily. - amLODIPine (NORVASC) 10 mg tablet Take 1 tablet by mouth once daily. - meloxicam (MOBIC) 15 mg tablet Take 1 tablet by mouth once daily. With food. - pioglitazone (ACTOS) 45 mg tablet Take 1 tablet by mouth once daily. - fluticasone (FLONASE) 50 mcg/actuation nasal spray Use 2 Sprays in each nostril once daily. Rinse mouth after use. - Lancets lancets Test blood sugar(s) 2 times daily. Dx: Other DM Code 11.29 Insulin: No, A1c 7.5% 09/05/2021 - meclizine (ANTIVERT) 25 mg tab Take 1 tablet by mouth every 6 hours as needed (dizziness). - cholecalciferol (VITAMIN D) 1,000 unit tab tablet Take 1 tablet by mouth once daily. Take 4 tablets daily - Multivitamin capsule Take 1 capsule by mouth once daily. - aspirin, enteric coated (ADULT ASPIRIN REGIMEN) 81 mg EC tablet Take 1 tablet by mouth once daily. - omega-3 fatty acids 1,000 mg cap Take 2 capsules by mouth once daily. - COMPOUNDED PRESCRIPTION Compression stockings, thigh high 15-20mmHg Dx: leg edema Meds Comments as of 08/19/2018: Multivitamin 8 hour arthritis pain relief Ty-s - Stress management Probiotic 50 billion Problem List As Of Date 11/04/2023 Noted Resolved Mixed hyperlipidemia [E78.2] 02/12/2005 Recurrent major depression in partial remission*05/30/2005 Generalized anxiety disorder [F41.1] 03/13/2006 Osteopenia, senile [M85.80] 06/07/2008 Fibromyalgia [M79.7] 06/06/2009 WHIT (obstructive sleep apnea) [G47.33] 07/04/2010 Adjustment disorder [F43.20] 10/29/2011 Arthritis of knee, right [M17.11] 12/23/2012 Arthritis of left knee [M17.12] 05/28/2013 Chronic sacroiliac (SI) strain [S39.012A] 08/27/2013 DDD (degenerative disc disease), lumbar [M51.36]07/26/2014 Diabetes mellitus type 2 with ketoacidosis, [facility]*03/01/2015 05/28/2015 Lumbago [M54.50] 05/19/2015 Type 2 diabetes mellitus with renal complicatio*08/02/2015 Chronic pain syndrome [G89.4] 11/26/2015 Stasis dermatitis of right lower extremity due *04/02/2016 Generalized osteoarthrosis, unspecified site [M* 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 Normal [facility] Telephone (FAMPWS) BEVERLY GIVENS ([id number]) 1950 F NFR Date Time Provider Department 11/04/23 LUIS M JOHNSON During your visit today, we recorded the following information about you: Luis M Johnson MD 11/04/2023 9:27 PM Signed Let patient know her parathyroid level was ok but her calcium is still high. I have placed an order to check her Vit D. If normal the next step is to see endocrine. Katlyn Almanza MA 11/05/2023 8:20 AM Signed Patient notified and voiced understanding. She will not be able to get the lab done for 2-3 days. Patient was inquiring about her Bone Density results. BRANDIN Starks Roxanne, MA 11/05/2023 8:32 AM Signed Patient notified via other phone encounter regarding the bone density results. Katlyn Almanza MA Allergies As of Date: 11/04/2023 Noted Allergy Reaction FAMCICLOVIR 11/25/2011 2 - Rash Comments: large vesicles of fingers (2 fingers) FENTANYL 09/28/2013 1 - Mental Status Change Comments: patches LAMICTAL (LAMOTRIGINE) 07/13/2009 1 - Mental Status Change Comments: mental cloudy LYRICA (PREGABALIN) 07/26/2014 14 - Other: See Comments Comments: Increased depression OXYCONTIN (OXYCODONE HCL) 10/18/2014 14 - Other: See Comments Comments: Anxiety, depression WELLBUTRIN (BUPROPION HCL) 10/06/2014 5 - Intolerance Comments: Mental status change ATARAX (HYDROXYZINE) 04/06/2021 1 - Mental Status Change NIACIN 03/13/2006 14 - Other: See Comments Comments: depression PREVACID (LANSOPRAZOLE) 02/21/2005 16 - Unknown Date Reviewed: 10/17/2023 Reviewed by: Luis M Johnson MD - Fully Assessed Reason for Visit: Results [95] Primary Visit Diagnosis:Hypercalcemi a [E83.52] Order(s):VITAMIN D 25 HYDROXY [SQVITD] Order #: [id number] FUTURE Prescriptions as of 11/05/2023 - glimepiride (AMARYL) 4 mg tablet Take 1 tablet by mouth two times a day with meals. - blood sugar diagnostic (BLOOD GLUCOSE TEST) test strip Test blood sugar(s) 2 times daily. Dx: Other DM Code E11.29 Insulin: No A1c 7.5% 09/05/2021 - cyclobenzaprine (FLEXERIL) 10 mg tablet Take 1 tablet by mouth two times a day as needed. - metFORMIN ER (GLUCOPHAGE XR) 500 mg 24 hr tablet Take 2 tablets by mouth two times a day. - pantoprazole DR (PROTONIX) 20 mg tablet take 1 tablet daily 1/2 hour before breakfast on an empty stomach - SITagliptin phosphate (JANUVIA) 100 mg tablet Take 1 tablet by mouth once daily. - albuterol HFA (PROVENTIL HFA, VENTOLIN HFA) 90 mcg/actuation inhaler Inhale 2 Puffs as instructed every 4 hours as needed. - atorvastatin (LIPITOR) 40 mg tablet Take 1 tablet by mouth once daily. - busPIRone (BUSPAR) 15 mg tablet Take 1 tablet by mouth two times a day. - FLUoxetine (PROZAC) 20 mg capsule Take 2 capsules by mouth once daily. - lisinopril (ZESTRIL) 30 mg tablet Take 1 tablet by mouth once daily. - amLODIPine (NORVASC) 10 mg tablet Take 1 tablet by mouth once daily. - meloxicam (MOBIC) 15 mg tablet Take 1 tablet by mouth once daily. With food. - pioglitazone (ACTOS) 45 mg tablet Take 1 tablet by mouth once daily. - fluticasone (FLONASE) 50 mcg/actuation nasal spray Use 2 Sprays in each nostril once daily. Rinse mouth after use. - Lancets lancets Test blood sugar(s) 2 times daily. Dx: Other DM Code 11.29 Insulin: No, A1c 7.5% 09/05/2021 - meclizine (ANTIVERT) 25 mg tab Take 1 tablet by mouth every 6 hours as needed (dizziness). - cholecalciferol (VITAMIN D) 1,000 unit tab tablet Take 1 tablet by mouth once daily. Take 4 tablets daily - Multivitamin capsule Take 1 capsule by mouth once daily. - aspirin, enteric coated (ADULT ASPIRIN REGIMEN) 81 mg EC tablet Take 1 tablet by mouth once daily. - omega-3 fatty acids 1,000 mg cap Take 2 capsules by mouth once daily. - COMPOUNDED PRESCRIPTION Compression stockings, thigh high 15-20mmHg Dx: leg edema Meds Comments as of 08/19/2018: Multivitamin 8 hour arthritis pain relief Ty-s - Stress management Probiotic 50 billion Problem List As Of Date 11/04/2023 Noted Resolved Mixed hyperlipidemia [E78.2] 02/12/2005 Recurrent major depression in partial remission*05/30/2005 Generalized anxiety disorder [F41.1] 03/13/2006 Osteopenia, senile [M85.80] 06/07/2008 Fibromyalgia [M79.7] 06/06/2009 WHIT (obstructive sleep apnea) [G47.33] 07/04/2010 Adjustment disorder [F43.20] 10/29/2011 Arthritis of knee, right [M17.11] 12/23/2012 Arthritis of left knee [M17.12] 05/28/2013 Chronic sacroiliac (SI) strain [S39.012A] 08/27/2013 DDD (degenerative disc disease), lumbar [M51.36]07/26/2014 Diabetes mellitus type 2 with ketoacidosis, unc*03/01/2015 05/28/2015 Lumbago [M54.50] 05/19/2015 Type 2 diabetes mellitus with renal complicatio*08/02/2015 Chronic pain syndrome [G89.4] 11/26/2015 Stasis dermatitis of right lower extremity due *04/02/2016 Generalized osteoarthrosis, unspecified (more content not included)... Normal [facility] ALBUMIN/CREATININE RATIO, UR INEon 10-18-2023 Albumin DL <= 20 mg/L (U) [Mass/Vol] mg/L mg/L [facility] Albumin/Creatinine (U) [Mass ratio] mg/g NINF - 30 mg/g [facility] Comment on above: Adult Male and Femal e Nephrotic Criteria: <30 mg/g is considered normal to mildly increased 30-300 mg/g is considered moderately increased >300 mg/g is considered severely increased KDIGO. (2013). KDIGO 2012 Clinical Practice Guideline for the Evaluation and Management of Chronic Kidney Disease. Official Journal of the International Society of Nephrology, 3(1), 1-150. Creatinine (U) [Mass/Vol] 93.5 mg/dL 20.0 - 300.0 mg/dL [facility] Urinalysis complete panel (U )on 10-18-2023 Bacteria LM.HPF (Urine sed) [#/Area] Negative Negative /HPF [facility] Bilirubin Ql (U) Negative Negative [facility] Clarity (Unsp spec) Clear Clear [facility] Color (U) Yellow Yellow [facility] Epithelial cells LM.HPF (Urine sed) [#/Area] Moderate /HPF [facility] Glucose Test strip (U) [Mass/Vol] Trace Abnormal Negative [facility] Hemoglobin Ql (U) Negative Negative [facility] Hyaline casts (Urine sed) [#/Area] 1-3 /LPF Abnormal 0 /LPF [facility] Interpretation and review of laboratory results Abnormal [facility] Ketones Ql (U) Negative Negative [facility] Leukocyte esterase Test strip Ql (U) 2+ Abnormal Negative [facility] Nitrite Ql (U) Negative Negative [facility] pH (U) 5.5 [pH] NINF - 8.5 [facility] Protein (U) [Mass/Vol] Negative Negative [facility] RBC LM.HPF (Urine sed) [#/Area] 0-2 /HPF 0-2 /HPF [facility] Specific gravity (U) [Rel density] 1.020 1.005 - 1.030 [facility] Urobilinogen Ql (U) 0.2 EU/dL 0.2-1.0 EU/dL [facility] WBC LM.HPF (Urine sed) [#/Area] 6-10 /HPF Abnormal 0-5 /HPF [facility] This test was developed and its performance characteristics determined by [facility]'s Tunde Machuca [facility] Pathology and Laboratory Medicine [place] (-PLMI). It has not been cleared or approved by the FDA. [facility] is regulated under CLIA as qualified to perform high-complexity testing. This test is used for clinical purposes. It should not be regarded as investigational or for research. [facility] CBC W Auto Differential pane l (Bld)on 06-07-2024 Basophils (Bld) [#/Vol] 0.04 10*3/uL [facility] Basophils/100 WBC (Bld) 0.4 % [facility] Differential cell count method Nom (Bld) Auto [facility] Eosinophils (Bld) [#/Vol] 0.04 10*3/uL [facility] Eosinophils/100 WBC (Bld) 0.4 % [facility] Erythrocyte distribution width (RBC) [Ratio] 13.3 % 11.5 - 15.0 % [facility] Hematocrit (Bld) [Volume fraction] 41.6 % 36.0 - 46.0 % [facility] Hemoglobin (Bld) [Mass/Vol] 13.5 g/dL 11.5 - 15.5 g/dL [facility] Immature granulocytes (Bld) [#/Vol] [facility] Immature granulocytes/100 WBC (Bld) 0.2 % [facility] Lymphocytes (Bld) [#/Vol] 3.64 10*3/uL [facility] Lymphocytes/100 WBC (Bld) 35.9 % [facility] MCH (RBC) [Entitic mass] 28.2 pg 26.0 - 34.0 pg [facility] MCHC (RBC) [Mass/Vol] 32.5 g/dL 30.5 - 36.0 g/dL [facility] MCV (RBC) [Entitic vol] 87.0 fL 80.0 - 100.0 fL [facility] Monocytes (Bld) [#/Vol] 0.73 10*3/uL [facility] Monocytes/100 WBC (Bld) 7.2 % [facility] Neutrophils (Bld) [#/Vol] 5.66 10*3/uL [facility] Neutrophils/100 WBC (Bld) 55.9 % [facility] Nucleated RBC (Bld) [#/Vol] [facility] Nucleated RBC/100 WBC (Bld) [Ratio] 0.0 % /100 WBC [facility] Platelet mean volume (Bld) [Entitic vol] 9.8 fL 9.0 - 12.7 fL [facility] Platelets (Bld) [#/Vol] 352 10*3/uL [facility] RBC (Bld) [#/Vol] 4.78 10*6/uL 3.90 - 5.2 0 m/uL [facility] WBC (Bld) [#/Vol] 10.13 10*3/uL [facility] Cobalamin (Vitamin B12) [Mas s/Vol]on 10-17-2023 Interpretation and review of laboratory results Normal [facility] Comprehensive metabolic 2000 panelon 10-17-2023 Albumin [Mass/Vol] 4.8 g/dL 3.9 - 4.9 g/dL Cl [facility] ALP [Catalytic activity/Vol] 88 U/L 34 - 123 U/L [facility] ALT [Catalytic activity/Vol] 37 U/L 7 - 38 U/L [facility] Anion gap [Moles/Vol] 16 mmol/L High 8 - 15 mmol/L [facility] AST [Catalytic activity/Vol] 34 U/L 13 - 35 U/L [facility] Bilirubin [Mass/Vol] 0.3 mg/dL 0.2 - 1 .3 mg/dL [facility] Calcium [Mass/Vol] 10.3 mg/dL High 8.5 - 10. 2 mg/dL [facility] Chloride [Moles/Vol] 105 mmol/L 98 - 10 7 mmol/L [facility] CO2 [Moles/Vol] 19 mmol/L Low 22 - 30 mmol/L [facility] Creatinine [Mass/Vol] 0.73 mg/dL 0.58 - 0.96 mg/dL [facility] GFR/1.73 sq M.predicted among non-blacks MDRD (S/P/Bld) [Vol rate/Area] 88 mL/min/{1.73_m2} - PINF [facility] Comment on above: Estimated Glomerular Filtration Rate (eGFR) is calculated using the 2020 CKD-EPI creatinine equation. This equation utilizes serum creatinine, sex, and age as parameters. The creatinine assay has traceable calibration to isotope dilution-mass spectrometry. Refer to KDIGO guidelines for clinical interpretation. In patients with unstable renal function, e.g. those with acute kidney injury, the eGFR may not accurately reflect actual GFR. Glucose [Mass/Vol] 161 mg/dL High 74 - 99 mg/dL [facility] Comment on above: The [place] Diabete s Association (ADA) provides guidance for cutoff values for fasting glucose and random glucose. The ADA defines fasting as no caloric intake for at least 8 hours. Fasting plasma glucose results between 100 to 125 mg/dL indicate increased risk for diabetes (prediabetes). Fasting plasma glucose results greater than or equal to 126 mg/dL meet the criteria for diagnosis of diabetes. In the absence of unequivocal hyperglycemia, results should be confirmed by repeat testing. In a patient with classic symptoms of hyperglycemia or hyperglycemic crisis, random plasma glucose results greater than or equal to 200 mg/dL meet the criteria for diagnosis of diabetes. Reference: Standards of Medical Care in Diabetes 2016, [place] Diabetes Association. Diabetes Care. 2016.39(Suppl 1). Potassium [Moles/Vol] 4.8 mmol/L 3.7 - 5.1 mmol/L [facility] Protein [Mass/Vol] 8.2 g/dL High 6.3 - 8.0 g/dL [facility] Sodium [Moles/Vol] 140 mmol/L 136 - 144 mmol/L [facility] Urea nitrogen [Mass/Vol] 16 mg/dL 7 - 21 mg/dL [facility] HbA1c (Bld)on 10-17-2023 Average glucose Estimated from glycated hemoglobin (Bld) [Mass/Vol] 177 mg/dL [facility] Comment on above: eAG: (Estimated aver age glucose) is a calculated value from HgbA1c and is community representative of the average blood glucose level in the last 2-3 month period. HbA1c (Bld) [Mass fraction] 7.8 % High 4.3 - 5.6 % [facility] Comment on above: [place] Diabetes As sociation guidelines indicate that patients with HgbA1c in the range 5.7-6.4% are at increased risk for development of diabetes, and intervention by lifestyle modification may be beneficial. HgbA1c greater or equal to 6.5% is considered diagnostic of diabetes. Interpretation and review of laboratory results Abnormal [facility] LIPID PANEL, NONFASTINGon Cholesterol [Mass/Vol] 183 mg/dL NINF - 200 mg/dL [facility] Comment on above: <200 mg/dL, Desirabl e 200-239 mg/dL, Borderline high >239 mg/dL, High HDL Cholesterol, Nonfasting 62 mg/dL 39 - PINF mg/dL [facility] Comment on above: 40-59 mg/dL, Accepta ble >59 mg/dL, High: Negative risk factor for coronary heart disease <40 mg/dL, Low: Positive risk factor for coronary heart disease LDL Cholesterol, Nonfasting 86 mg/dL NINF - 100 mg/dL [facility] Comment on above: <100 mg/dL, Optimal 100-129 mg/dL, Near optimal/above optimal 130-159 mg/dL, Borderline high 160-189 mg/dL, High >189 mg/dL, Very high Secondary prevention optimal LDL Cholesterol levels are recommended to be < 70 mg/dL LDL/HDL Ratio, Nonfasting 1.39 mg/dL NINF - 2.54 mg/dL [facility] Comment on above: Reference: 1. National Cholesterol Education Program ATP III Guideline At-A-Glance Quick Desk Reference: National Heart, Lung, and Blood [place]. National Institutes of Health. 2001: NIH Publication No. 01-3305. 2. An International Atherosclerosis Society position paper: global recommendations for the management of dyslipidemia: executive summary, Atherosclerosis. 2014: 232(2):410-413. Non HDL Cholesterol, Nonfasting 121 mg/dL NINF - 130 mg/dL [facility] Comment on above: <130 mg/dL, Optimal 130-159 mg/dL, Near optimal/above optimal 160-189 mg/dL, Borderline high 190-219 mg/dL, High >219 mg/dL, Very high Secondary prevention optimal non HDL Cholesterol levels are recommended to be <100 mg/dL Total Chol/HDL Ratio, Nonfasting 2.95 mg/dL NINF - 5.10 mg/dL [facility] Triglycerides, Nonfasting 175 mg/dL [facility] mg/dL [facility] Comment on above: <150 mg/dL, Normal 150-199 mg/dL, Borderline high 200-499 mg/dL, High >499 mg/dL, Very high VLDL Cholesterol, Nonfasting 35 mg/dL High NINF - 30 mg/dL [facility] MAGNESIUMon 10-17-2023 Magnesium [Mass/Vol] 2.1 mg/dL 1.7 - 2 .3 mg/dL [facility] Magnesium [Mass/Vol]on 10-16 Interpretation and review of laboratory results Normal [facility] No Panel Informationon 10-16 Interpretation and review of laboratory results Abnormal [facility] THYROID STIMULATING HORMONEo n 10-17-2023 TSH Qn 1.240 m[IU]/L [facility] TSH Qnon 10-17-2023 Interpretation and review of laboratory results Normal [facility] VITAMIN B12on 10-17-2023 Cobalamin (Vitamin B12) [Mass/Vol] 397 pg/mL 232 - 1245 pg/mL [facility] MINI NIKOSG Yolanda STEINBERG LEFTon 04-15 [facility] XR HIP GENERAL 3V PELV/AP/LA T RIGHTon 10-21-2022 [facility] CNPNon 10-17-2021 CNPN Telephone (AGSPINE1) BEVERLY GIVENS ([id number]) 1950 F NFR Date Time Provider Department 10/17/21 SINDI SADLER AGSPINE1 During your visit today, we recorded the following information about you: Dena Wiggins 10/17/2021 1:54 PM Signed Left brief message on [employer] stating to call the office to schedule New patient appointment with Dr. Sadler or Meka Costa in [place]. Dena Wiggins Allergies As of Date: 10/17/2021 Noted Allergy Reaction FAMCICLOVIR 11/25/2011 2 - Rash Comments: large vesicles of fingers (2 fingers) FENTANYL 09/28/2013 1 - Mental Status Change Comments: patches LAMICTAL (LAMOTRIGINE) 07/13/2009 1 - Mental Status Change Comments: mental cloudy LYRICA (PREGABALIN) 07/26/2014 14 - Other: See Comments Comments: Increased depression OXYCONTIN (OXYCODONE HCL) 10/18/2014 14 - Other: See Comments Comments: Anxiety, depression WELLBUTRIN (BUPROPION HCL) 10/06/2014 5 - Intolerance Comments: Mental status change ATARAX (HYDROXYZINE) 04/06/2021 1 - Mental Status Change NIACIN 03/13/2006 14 - Other: See Comments Comments: depression PREVACID (LANSOPRAZOLE) 02/21/2005 16 - Unknown Date Reviewed: 10/10/2021 Reviewed by: Luis M Johnson MD - Fully Assessed Reason for Visit: Appointment [[id number]] Prescriptions as of 10/17/2021 - atorvastatin (LIPITOR) 40 mg tablet Take 1 tablet by mouth once daily. - busPIRone (BUSPAR) 15 mg tablet Take 1 tablet by mouth twice daily. - FLUoxetine (PROZAC) 20 mg capsule Take 2 capsules by mouth once daily. - glimepiride (AMARYL) 4 mg tablet Take 1 tablet by mouth twice daily with meals. - metFORMIN ER (GLUCOPHAGE XR) 500 mg 24 hr tablet Take 2 tablets by mouth twice daily. - pantoprazole DR (PROTONIX) 20 mg tablet take 1 tablet daily 1/2 hour before breakfast on an empty stomach - pioglitazone (ACTOS) 45 mg tablet Take 1 tablet by mouth once daily. - blood sugar diagnostic (BLOOD GLUCOSE TEST) test strip Test blood sugar(s) 2 times daily. Dx: Other DM Code E11.29 Insulin: No A1c 7.5% 09/05/2021 - Lancets lancets Test blood sugar(s) 2 times daily. Dx: Other DM Code 11.29 Insulin: No, A1c 7.5% 09/05/2021 - meloxicam (MOBIC) 15 mg tablet Take 1 tablet by mouth once daily. With food. - cyclobenzaprine (FLEXERIL) 10 mg tablet Take 1 tablet by mouth twice daily as needed. - albuterol HFA (PROVENTIL HFA, VENTOLIN HFA) 90 mcg/actuation inhaler Inhale 2 Puffs as instructed every 4 hours as needed. - meclizine (ANTIVERT) 25 mg tab Take 1 tablet by mouth every 6 hours as needed (dizziness). - cholecalciferol (VITAMIN D) 1,000 unit tab tablet Take 1 tablet by mouth once daily. Take 4 tablets daily - Ascorbic Acid (VITAMIN C) 1,000 mg tablet Take 1 tablet by mouth once daily. - Multivitamin capsule Take 1 capsule by mouth once daily. - bifidobacteri bifid.and longum (FLORAJEN BIFIDOBLEND) 460 mg (9-1 bill.cell) cap Take 1 capsule by mouth once daily. - fluticasone (FLONASE) 50 mcg/actuation nasal spray Use 2 Sprays in each nostril once daily. Rinse mouth after use. - aspirin, enteric coated (ADULT ASPIRIN REGIMEN) 81 mg EC tablet Take 1 tablet by mouth once daily. - omega-3 fatty acids 1,000 mg cap Take 2 capsules by mouth once daily. - COMPOUNDED PRESCRIPTION Compression stockings, thigh high 15-20mmHg Dx: leg edema Meds Comments as of 08/19/2018: Multivitamin 8 hour arthritis pain relief Ty-s - Stress management Probiotic 50 billion Problem List As Of Date 10/17/2021 Noted Resolved Mixed hyperlipidemia [E78.2] 02/12/2005 Recurrent major depression in partial remission*05/30/2005 Generalized anxiety disorder [F41.1] 03/13/2006 Osteopenia [M89.9, M94.9] 06/07/2008 Fibromyalgia [M79.7] 06/06/2009 WHIT (obstructive sleep apnea) [G47.33] 07/04/2010 Adjustment disorder [F43.20] 10/29/2011 Arthritis of knee, right [M17.11] 12/23/2012 Arthritis of left knee [M17.12] 05/28/2013 Chronic sacroiliac (SI) strain [S39.012A] 08/27/2013 DDD (degenerative disc disease), lumbar [M51.36]07/26/2014 Diabetes mellitus type 2 with ketoacidosis, unc*03/01/2015 05/28/2015 Lumbago [M54.50] 05/19/2015 Type 2 diabetes mellitus with renal complicatio*08/02/2015 Chronic pain syndrome [G89.4] 11/26/2015 Stasis dermatitis of right lower extremity due *04/02/2016 Generalized osteoarthrosis, unspecified site [M* Recovering alcoholic (HCC) [F10.21] 10/02/2016 Diabetic eye exam (HCC) [Z01.00, E11.9] 10/02/2016 Gastroesophageal reflux disease without esophag*10/02/2016 Morbid obesity with body mass index (BMI) of 45*10/02/2016 Family history of colon cancer [Z80.0] 08/05/2017 Medicare annual wellness visit, subsequent [Z00*08/05/2017 Screening for colon cancer [Z12.11] 08/05/2017 Encounter for screening mammogram for breast ca*02/10/2018 Medication management [Z79.899] 06/02/2018 Hx of colonic polyp [Z86.010] 08/19/2018 (more content not included)... Normal [facility] Vital Signs Date Time Vital Sign Value Performing Clinician Faci lity 12-02-2024 13:13-0400 Diastolic blood pressure 71 mm[Hg] Dr. Luis M Johnson MD Work Phone: [phone](858)[phone] [place] [address] 12-02-2024 13:13-0400 Heart rate 119 /min Dr. Luis M Johnson MD Work Phone: 1(727)[phone] [place] [address] 12-02-2024 13:13-0400 Respiratory rate 18 /min Dr. Luis M Johnson MD Work Phone: 1(594)[phone] [place] [address] 12-02-2024 13:13-0400 SaO2% (BldA) [Mass fraction] 96 % Dr. Luis M Johnson MD Work Phone: [phone])[phone] [place] [address] 12-02-2024 13:13-0400 Systolic blood pressure 115 mm[Hg] Dr. Luis M Johnson MD Work Phone: 8(237)[phone] [place] [address] 11-24-2024 11:32-0400 Body height 1706.[address] Luis M Johnson MD Work Phone: 7(449)686-525511 [place] [address] 11-19-2024 13:25-0400 Body height 1706.[address] Luis M Johnson MD Work Phone: 6(514)[phone] [place] [address] 11-19-2024 13:25-0400 Body mass index (BMI) [Ratio] 0.4 kg/m2 Dr. Luis M Johnson MD Work Phone: [phone])[phone] [place] [address] 11-19-2024 13:25-0400 Body temperature 97.8 [degF] Dr. Luis M Johnson MD Work Phone: 7(547)[phone] [place] [address] 11-19-2024 13:25-0400 Body weight 127.[address] Luis M Johnson MD Work Phone: [phone](084)[phone] [place] [address] 11-19-2024 13:25-0400 Diastolic blood pressure 68 mm[Hg] Dr. Luis M Johnson MD Work Phone: 1(452)[phone] [place] [address] 11-19-2024 13:25-0400 Heart rate 118 /min Dr. Luis M Johnson MD Work Phone: [phone])[phone] [place] [address] 11-19-2024 13:25-0400 Respiratory rate 18 /min Dr. Luis M Johnson MD Work Phone: [facility] 11-19-2024 13:25-0400 SaO2% (BldA) [Mass fraction] 97 % Dr. Luis M Johnson MD Work Phone: [facility] 11-19-2024 13:25-0400 Systolic blood pressure 113 mm[Hg] Dr. Luis M Johnson MD Work Phone: [facility] 10-19-2024 13:47-0400 Body height 170.2 cm Luis M Johnson MD Work Phone: [facility] 10-19-2024 13:47-0400 Body mass index (BMI) [Ratio] 44.95 kg/m2 Luis M Johnson MD Work Phone: [facility] 10-19-2024 13:47-0400 Body weight 130.18 kg Luis M Johnson MD Work Phone: [facility] 10-19-2024 13:47-0400 Diastolic blood pressure 60 mm[Hg] Luis M Johnson MD Work Phone: [facility] 10-19-2024 13:47-0400 Heart rate 121 /min Luis M Johnson MD Work Phone: [facility] 10-19-2024 13:47-0400 Respiratory rate 18 /min Luis M Johnson MD Work Phone: [facility] 10-19-2024 13:47-0400 SaO2% (BldA) [Mass fraction] 97 % Luis M Johnson MD Work Phone: [facility] 10-19-2024 13:47-0400 Systolic blood pressure 116 mm[Hg] Luis M Johnson MD Work Phone: [facility] 07-03-2024 10:54-0500 Body mass index (BMI) [Ratio] 44.55 kg/m2 Luis M Baez APRN.CNP Work Phone: [facility] 07-03-2024 10:54-0500 Body temperature 97 [degF] Luis M Baez ECHOCARDIOGRAPHY TECHNOLOGIST.PERIOPERATIVE ASSISTANT Work Phone: [facility] 07-03-2024 10:54-0500 Body weight 127.1 kg Luis M Baez ECHOCARDIOGRAPHY TECHNOLOGIST.PERIOPERATIVE ASSISTANT Work Phone: [facility] 07-03-2024 10:54-0500 Diastolic blood pressure 73 mm[Hg] Luis M Baez ECHOCARDIOGRAPHY TECHNOLOGIST.PERIOPERATIVE ASSISTANT Work Phone: [facility] 07-03-2024 10:54-0500 Heart rate 102 /min Luis M Baez ECHOCARDIOGRAPHY TECHNOLOGIST.PERIOPERATIVE ASSISTANT Work Phone: [facility] 07-03-2024 10:54-0500 Respiratory rate 18 /min Luis M Baez ECHOCARDIOGRAPHY TECHNOLOGIST.PERIOPERATIVE ASSISTANT Work Phone: [facility] 07-03-2024 10:54-0500 SaO2% (BldA) [Mass fraction] 96 % Luis M Baez ECHOCARDIOGRAPHY TECHNOLOGIST.PERIOPERATIVE ASSISTANT Work Phone: [facility] 07-03-2024 10:54-0500 Systolic blood pressure 110 mm[Hg] Luis M Baez ECHOCARDIOGRAPHY TECHNOLOGIST.PERIOPERATIVE ASSISTANT Work Phone: [facility] 04-19-2024 12:57-0500 Body mass index (BMI) [Ratio] 43.24 kg/m2 Teddy Cox ECHOCARDIOGRAPHY TECHNOLOGIST.PERIOPERATIVE ASSISTANT Work Phone: [facility] 04-19-2024 12:57-0500 Body weight 123.38 kg Teddy Cox APRN.PERIOPERATIVE ASSISTANT Work Phone: [facility] 04-19-2024 12:57-0500 Diastolic blood pressure 67 mm[Hg] Teddy Cox ECHOCARDIOGRAPHY TECHNOLOGIST.PERIOPERATIVE ASSISTANT Work Phone: [facility] 04-19-2024 12:57-0500 Heart rate 128 /min Teddy Cox ECHOCARDIOGRAPHY TECHNOLOGIST.PERIOPERATIVE ASSISTANT Work Phone: [facility] 04-19-2024 12:57-0500 Systolic blood pressure 105 mm[Hg] Teddy Cox ECHOCARDIOGRAPHY TECHNOLOGIST.PERIOPERATIVE ASSISTANT Work Phone: [facility] 10-17-2023 13:03-0400 Body height 168.9 cm Luis M Johnson MD Work Phone: [facility] 10-17-2023 13:03-0400 Body mass index (BMI) [Ratio] 46.74 kg/m2 Luis M Johnson MD Work Phone: [facility] 10-17-2023 13:03-0400 Body weight 133.36 kg Luis M Johnson MD Work Phone: [facility] 10-17-2023 13:03-0400 Diastolic blood pressure 82 mm[Hg] Luis M Johnson MD Work Phone: [facility] 10-17-2023 13:03-0400 Heart rate 102 /min Luis M Johnson MD Work Phone: [facility] 10-17-2023 13:03-0400 Respiratory rate 18 /min Luis M Johnson MD Work Phone: [facility] 10-17-2023 13:03-0400 Systolic blood pressure 124 mm[Hg] Luis M Johnson MD Work Phone: [facility] 04-15-2023 12:36-0500 Body weight 139.25 kg Teddy Cox ECHOCARDIOGRAPHY TECHNOLOGIST.PERIOPERATIVE ASSISTANT Work Phone: [facility] 04-15-2023 12:36-0500 Diastolic blood pressure 73 mm[Hg] Teddy Cox ECHOCARDIOGRAPHY TECHNOLOGIST.PERIOPERATIVE ASSISTANT Work Phone: [facility] 04-15-2023 12:36-0500 Heart rate 118 /min Teddy Michelle ECHOCARDIOGRAPHY TECHNOLOGIST.PERIOPERATIVE ASSISTANT Work Phone: [facility] 04-15-2023 12:36-0500 Respiratory rate 18 /min Teddy Michelle ECHOCARDIOGRAPHY TECHNOLOGIST.PERIOPERATIVE ASSISTANT Work Phone: [facility] 04-15-2023 12:36-0500 Systolic blood pressure 113 mm[Hg] Teddy Cox ECHOCARDIOGRAPHY TECHNOLOGIST.PERIOPERATIVE ASSISTANT Work Phone: [facility] 03-17-2023 13:06-0500 Body height 167.6 cm Stormy Hamilton PA-C Work Phone: [facility] 03-17-2023 13:06-0500 Body weight 138.8 kg Stormy Hamilton PA-C Work Phone: [facility] 10-14-2022 12:37-0400 Body weight 137.89 kg Teddy Knoble ECHOCARDIOGRAPHY TECHNOLOGIST.PERIOPERATIVE ASSISTANT Work Phone: [facility] 10-14-2022 12:37-0400 Diastolic blood pressure 74 mm[Hg] Teddy Knoble ECHOCARDIOGRAPHY TECHNOLOGIST.PERIOPERATIVE ASSISTANT Work Phone: [facility] 10-14-2022 12:37-0400 Heart rate 110 /min Teddy Knoble ECHOCARDIOGRAPHY TECHNOLOGIST.PERIOPERATIVE ASSISTANT Work Phone: [facility] 10-14-2022 12:37-0400 Respiratory rate 16 /min Teddy Knoble ECHOCARDIOGRAPHY TECHNOLOGIST.PERIOPERATIVE ASSISTANT Work Phone: [facility] 10-14-2022 12:37-0400 Systolic blood pressure 126 mm[Hg] Teddy Knoble ECHOCARDIOGRAPHY TECHNOLOGIST.PERIOPERATIVE ASSISTANT Work Phone: [facility] 08-06-2022 11:31-0400 Body weight 138.35 kg Teddy Knoble ECHOCARDIOGRAPHY TECHNOLOGIST.PERIOPERATIVE ASSISTANT Work Phone: [facility] 08-06-2022 11:31-0400 Diastolic blood pressure 78 mm[Hg] Teddy Knoble ECHOCARDIOGRAPHY TECHNOLOGIST.PERIOPERATIVE ASSISTANT Work Phone: [facility] 08-06-2022 11:31-0400 Heart rate 112 /min Teddy Knoble ECHOCARDIOGRAPHY TECHNOLOGIST.PERIOPERATIVE ASSISTANT Work Phone: [facility] 08-06-2022 11:31-0400 Respiratory rate 18 /min Teddy Knoble ECHOCARDIOGRAPHY TECHNOLOGIST.PERIOPERATIVE ASSISTANT Work Phone: [facility] 08-06-2022 11:31-0400 Systolic blood pressure 124 mm[Hg] Teddy Knoble ECHOCARDIOGRAPHY TECHNOLOGIST.PERIOPERATIVE ASSISTANT Work Phone: [facility] 07-09-2022 12:34-0500 Body weight 138.35 kg Teddy Knoble ECHOCARDIOGRAPHY TECHNOLOGIST.PERIOPERATIVE ASSISTANT Work Phone: [facility] 07-09-2022 12:34-0500 Diastolic blood pressure 80 mm[Hg] Teddy Knoble ECHOCARDIOGRAPHY TECHNOLOGIST.PERIOPERATIVE ASSISTANT Work Phone: [facility] 07-09-2022 12:34-0500 Heart rate 114 /min Teddy Knoble ECHOCARDIOGRAPHY TECHNOLOGIST.PERIOPERATIVE ASSISTANT Work Phone: [facility] 07-09-2022 12:34-0500 Respiratory rate 20 /min Teddy Knoble ECHOCARDIOGRAPHY TECHNOLOGIST.PERIOPERATIVE ASSISTANT Work Phone: [facility] 07-09-2022 12:34-0500 Systolic blood pressure 142 mm[Hg] Teddy Knoble ECHOCARDIOGRAPHY TECHNOLOGIST.PERIOPERATIVE ASSISTANT Work Phone: [facility] 06-11-2022 12:37-0500 Body weight 138.8 kg Teddy Knoble ECHOCARDIOGRAPHY TECHNOLOGIST.PERIOPERATIVE ASSISTANT Work Phone: [facility] 06-11-2022 12:37-0500 Diastolic blood pressure 82 mm[Hg] Teddy Knoble ECHOCARDIOGRAPHY TECHNOLOGIST.PERIOPERATIVE ASSISTANT Work Phone: [facility] 06-11-2022 12:37-0500 Heart rate 112 /min Teddy Knoble ECHOCARDIOGRAPHY TECHNOLOGIST.PERIOPERATIVE ASSISTANT Work Phone: [facility] 06-11-2022 12:37-0500 Respiratory rate 18 /min Teddy Knoble ECHOCARDIOGRAPHY TECHNOLOGIST.PERIOPERATIVE ASSISTANT Work Phone: [facility] 06-11-2022 12:37-0500 Systolic blood pressure 148 mm[Hg] Teddy Knoble ECHOCARDIOGRAPHY TECHNOLOGIST.PERIOPERATIVE ASSISTANT Work Phone: [facility] 04-12-2022 14:17-0500 Diastolic blood pressure 78 mm[Hg] Luis M Johnson MD Work Phone: [facility] 04-12-2022 14:17-0500 Systolic blood pressure 150 mm[Hg] Luis M Johnson MD Work Phone: [facility] 04-12-2022 13:54-0500 Body weight 139.25 kg Luis M Johnson MD Work Phone: [facility] 04-12-2022 13:54-0500 Heart rate 86 /min Luis M Johnson MD Work Phone: [facility] 04-12-2022 13:54-0500 Respiratory rate 16 /min Luis M Johnson MD Work Phone: [facility] 03-13-2022 16:42-0400 Body weight 138.7 kg [facility] Work Phone: 02-25-2022 13:42-0400 Body height 167.64 cm [facility] Work Phone: 02-25-2022 13:42-0400 Body weight 139.52 kg [facility] Work Phone: 01-30-2022 15:45-0400 Body height 167.64 cm [facility] Work Phone: 01-30-2022 15:45-0400 Body weight 138.16 kg [facility] Work Phone: 11-02-2021 12:21-0400 Diastolic blood pressure 82 mm[Hg] Luis M Johnson MD Work Phone: [facility] 11-02-2021 12:21-0400 Heart rate 108 /min Luis M Johnson MD Work Phone: [facility] 11-02-2021 12:21-0400 Systolic blood pressure 129 mm[Hg] Luis M Johnson MD Work Phone: [facility] 11-02-2021 11:48-0400 Body weight 135.17 kg Luis M Johnson MD Work Phone: [facility] 11-02-2021 11:48-0400 Respiratory rate 16 /min Luis M Johnson MD Work Phone: [facility] Encounters Encounter Date Encounter Type Care Provider Facility Start: 12-02-2024 End: 12-02-[address] Luis M Johnson MD Work Phone: [facility] Start: 12-02-2024 End: 12-02-[address] Tunde Resendiz MD -[facility] Work Phone: Start: 11-19-2024 End: 11-19-[address] Tunde Resendiz MD -[facility] Work Phone: Start: 11-19-2024 End: 11-19-[address] Luis M Johnson MD Work Phone: [facility] Start: 10-26-2024 End: 10-26-2024 Refill Luis M Johnson MD Work Phone: [facility] [place] Comment on above: Refill Request Start: 10-19-2024 End: 10-19-2024 ambulatory LUIS M JOHNSON Facility:[facility] Start: 10-19-2024 End: 10-19-2024 Ophthalmic examination and evaluation Luis M Johnson MD Work Phone: [facility] Start: 10-19-2024 End: 10-19-2024 Patient encounter procedure Luis M Johnson MD Work Phone: [facility] [place] Comment on above: Medicare annual well ness visit, subsequent (Primary Dx); Type 2 diabetes mellitus with diabetic microalbuminuria, unspecified whether long term care social worker insulin use (HCC); Diabetic eye exam ([facility]); Hypertension, essential; Mixed hyperlipidemia; Gastroesophageal reflux disease without esophagitis; Generalized anxiety disorder; Recurrent major depression in partial remission; Adjustment disorder, unspecified type; Fibromyalgia; Low serum vitamin B12; Morbid obesity with body mass index (BMI) of 45.0 to 49.9 in adult (HCC); Recovering alcoholic (HCC); WHIT (obstructive sleep apnea); Foot callus; Chronic pain syndrome; Osteopenia, senile; Advance directive discussed with patient; Medication management; Need for vaccination; Screening for colon cancer; Encounter for screening mammogram for breast cancer; Neoplasm of uncertain behavior of skin of face Start: 10-19-2024 End: 10-19-2024 ambulatory LUIS M JOHNSON Facility:[facility] Start: 09-17-2024 End: 09-17-2024 ambulatory Nathalie Lacy RN Work Phone: [facility] [employer] Comment on above: Initial enrollment o lilia for Chronic Disease Management Start: 08-05-2024 End: 08-05-2024 ambulatory [facility] [place] Start: 08-05-2024 End: 08-05-2024 Patient encounter procedure Briseida Ivy MA [facility] Comment on above: Population Health Na vigation Outreach ([employer] High Risk- Attempt 2) Start: 07-29-2024 End: 07-29-2024 Refill Luis M Johnson MD Work Phone: [address] [place] [address] Comment on above: Refill Request Start: 07-03-2024 End: 07-03-2024 Subsequent hospital visit by physician Xr [facility] [place] Work Phone: Radiology Comment on above: Acute cough [R05.1] Start: 07-03-2024 End: 07-03-2024 ambulatory LUIS M JOHNSON Facility:[facility] Start: 07-03-2024 End: 07-03-2024 Office outpatient visit 25 minutes Luis M Baez APRN.PERIOPERATIVE ASSISTANT Work Phone: [facility] Comment on above: Sore throat (Primary Dx); Acute cough; Sinobronchitis Start: 07-01-2024 End: 07-01-2024 [facility] [place] Start: 07-01-2024 End: 07-01-2024 Patient encounter procedure Briseida Ivy MA [facility] Comment on above: Population Health Na vigation Outreach ([employer] High Risk- Attempt 1) Start: 04-23-2024 End: 04-23-2024 Refill Luis M Johnson MD Work Phone: [facility] [place] Comment on above: Refill Request Start: 04-20-2024 End: 04-20-2024 Telephone encounter Teddy Cox APRN.CNP Work Phone: [facility] [place] Comment on above: Results Start: 04-19-2024 End: 04-19-2024 Patient encounter procedure Teddy Cox APRN.CNP Work Phone: [facility] [place] Comment on above: Hypertension, essent ial (Primary Dx); Mixed hyperlipidemia; Gastroesophageal reflux disease without esophagitis; Type 2 diabetes mellitus with diabetic microalbuminuria, unspecified whether prison insulin use (HCC); Encounter for screening mammogram for breast cancer; WHIT (obstructive sleep apnea); Recurrent major depression in partial remission (HCC); Generalized anxiety disorder; Class 3 severe obesity with body mass index (BMI) of 40.0 to 44.9 in adult, unspecified obesity type, unspecified whether serious comorbidity present (HCC); Primary osteoarthritis of right hip Start: 04-19-2024 End: 04-19-2024 ambulatory TEDDY COX Facility:[facility] Start: 02-16-2024 End: 02-16-2024 Telephone encounter Luis M Johnson MD Work Phone: [facility] [place] Comment on above: Immunization update Start: 01-26-2024 End: 01-26-2024 Refill Luis M Johnson MD Work Phone: [facility] [place] Comment on above: Refill Request Start: 11-10-2023 Telephone encounter Summer cervantes PA-C Work Phone: [facility] [place] Comment on above: Results Start: 11-07-2023 Chart abstracting Luis M pardo MD Work Phone: [facility] [place] Comment on above: Outside Diabetic Eye Exam Start: 11-07-2023 Ophthalmic examinati on and evaluation uLis M Johnson MD Work Phone: [facility] Start: 11-07-2023 End: 11-07-2023 ambulatory LUIS M JOHNSON Facility:[facility] Start: 11-04-2023 Telephone encounter Luis M Johnson MD Work Phone: [facility] [place] Comment on above: Results Start: 10-30-2023 End: 10-30-2023 Subsequent hospital visit by physician Bone Density [facility] Work Phone: Radiology Comment on above: Osteopenia, senile [ M85.80] Start: 10-23-2023 Refill Luis M lemus MD Work Phone: [facility] [place] Comment on above: Refill Request Start: 10-20-2023 Telephone encounter Luis M Johnson MD Work Phone: [facility] [place] Comment on above: Results Start: 10-17-2023 End: 10-17-2023 Ophthalmic examination and evaluation Luis M Johnson MD Work Phone: [facility] Start: 10-17-2023 End: 10-17-2023 Patient encounter procedure Luis M Johnson MD Work Phone: [facility] [place] Comment on above: Medicare annual well ness visit, subsequent (Primary Dx); Type 2 diabetes mellitus with diabetic microalbuminuria, unspecified whether long term care social worker insulin use (HCC); Diabetic eye exam (HCC); Mixed hyperlipidemia; Hypertension, essential; Gastroesophageal reflux disease without esophagitis; Recurrent major depression in partial remission (HCC); Generalized anxiety disorder; Adjustment disorder, unspecified type; Fibromyalgia; Recovering alcoholic (HCC); Morbid obesity with body mass index (BMI) of 45.0 to 49.9 in adult (HCC); Stasis dermatitis of right lower extremity due to peripheral venous hypertension; WHIT (obstructive sleep apnea); Foot callus; Osteopenia, senile; Encounter for immunization; Medication management; Diabetic foot (HCC) Start: 07-31-2023 Refill Luis M lemus MD Work Phone: [facility] [place] Comment on above: Refill Request Start: 04-25-2023 Refill Luis M lemus MD Work Phone: [facility] [place] Comment on above: Refill Request Start: 04-15-2023 End: 04-15-2023 Subsequent hospital visit by physician Diagnostic Mammo [facility] Mammogram Start: 04-15-2023 Telephone encounter Teddy hebert APRN.PERIOPERATIVE ASSISTANT Work Phone: [facility] [place] Comment on above: Results Start: 04-15-2023 End: 04-15-2023 Patient encounter procedure Teddy Cox APRN.CNP Work Phone: [facility] [place] Comment on above: Fibromyalgia (Primar y Dx); DDD (degenerative disc disease), lumbar; Generalized anxiety disorder; Hypertension, essential; Gastroesophageal reflux disease without esophagitis; Type 2 diabetes mellitus with microalbuminuria, unspecified whether long term care social worker insulin use (HCC) ; WHIT (obstructive sleep apnea); Adjustment disorder, unspecified type; Mixed hyperlipidemia; Encounter for immunization; Low serum vitamin B12; Morbid obesity with body mass index (BMI) of 45.0 to 49.9 in adult (HCC); Recurrent major depression in partial remission (HCC); Chronic pain syndrome; Primary osteoarthritis of right hip Start: 03-29-2023 Refill Luis M lemus MD Work Phone: [facility] Comment on above: Refill Request Start: 03-28-2023 End: 03-28-2023 ambulatory [facility] [place] [facility] Comment on above: Primary osteoarthrit is of right hip (Primary Dx); Trochanteric bursitis of left hip; Morbid obesity (HCC) Start: 03-22-2023 Telephone encounter Ernestina mohamud MD Work Phone: Mammography Comment on above: Mammogram Result Andrei l Back Start: 03-21-2023 Telephone encounter Teddy hebert APRN.CNP Work Phone: [facility] [place] Comment on above: Results Start: 03-20-2023 End: 03-20-2023 Subsequent hospital visit by physician Screen Mammo [facility] Comment on above: Encounter for screen ing mammogram for malignant neoplasm of breast [Z12.31] Start: 03-19-2023 Telephone encounter Luis M Johnson MD Work Phone: [facility] [place] Comment on above: Stool lab order IFOB T Start: 03-18-2023 ambulatory [facility] [place] [place] Comment on above: Population Health Na vigation Outreach ([employer] care gaps) Lab orders Start: 03-18-2023 E-mail encounter kate mayers caregiver Katlyn Archie [facility]OT[facility] [place] Start: 03-17-2023 End: 03-17-2023 Patient encounter procedure Stormy Hamilton PA-C Work Phone: Orthopaedics Comment on above: Trochanteric bursiti s of left hip (Primary Dx); Primary osteoarthritis of right hip; Morbid obesity (HCC) Start: 01-28-2023 Refill Luis M lemus MD Work Phone: [facility] Comment on above: Refill Request Start: 12-27-2022 Refill Luis M lemus MD Work Phone: [facility] [place] Comment on above: Refill Request Start: 10-21-2022 End: 10-21-2022 Patient encounter procedure Sundeep Solis MD Work Phone: Orthopaedics Comment on above: APPOINTMENT CANCELLE D (Primary Dx); Pain of right hip Start: 10-21-2022 End: 10-21-2022 Subsequent hospital visit by physician Cheryle [facility] [place] Work Phone: Radiology Comment on above: Pain in right hip [M 25.551] Start: 10-16-2022 Orders Only Sundeep Solis MD Work Phone: Orthopaedics Comment on above: Pain in right hip (P rimary Dx) Start: 10-14-2022 Telephone encounter Bethany Mayers [facility] Comment on above: Advance Directives A ssist Start: 10-14-2022 End: 10-14-2022 Patient encounter procedure Teddy Cxo APRN.PERIOPERATIVE ASSISTANT Work Phone: [facility] [place] Comment on above: Medicare annual well ness visit, subsequent (Primary Dx); Encounter for screening mammogram for malignant neoplasm of breast; Counseling regarding advanced directives; Type 2 diabetes mellitus with microalbuminuria, unspecified whether long term care social worker insulin use (HCC); Morbid obesity with body mass index (BMI) of 45.0 to 49.9 in adult (HCC); Recovering alcoholic (HCC); Recurrent major depression in partial remission ([facility]); Hypertension, essential; Gastroesophageal reflux disease without esophagitis; Generalized anxiety disorder; Mixed hyperlipidemia; WHIT (obstructive sleep apnea); Fibromyalgia; Screening breast examination Start: 08-06-2022 End: 08-06-2022 Patient encounter procedure Teddy Cox APRN.CNP Work Phone: [facility] [place] Comment on above: Hypertension, essent ial (Primary Dx); Compulsive overeating Start: 07-09-2022 End: 07-09-2022 Patient encounter procedure Teddy Cox APRN.CNP Work Phone: [facility] [place] Comment on above: Hypertension, essent ial (Primary Dx) Start: 06-11-2022 End: 06-11-2022 Patient encounter procedure Teddy Michelle AREVALO Work Phone: [facility] Comment on above: Hypertension, essent ial (Primary Dx); Environmental allergies Start: 06-06-2022 Refill Luis M lemus MD Work Phone: [facility] Comment on above: Refill Request Start: 04-27-2022 Telephone encounter Luis M Johnson MD Work Phone: [facility] Comment on above: Results Start: 04-16-2022 ambulatory Luis M lemus MD Work Phone: [facility] Comment on above: flexeril Start: 04-16-2022 E-mail encounter fro m caregiver Lusi M Johnson MD Work Phone: [facility] [place] Start: 04-16-2022 Telephone encounter Luis M Johnson MD Work Phone: [facility] Comment on above: Insurance Authorizat ion (cyclobenzaprine) Start: 04-12-2022 End: 04-12-2022 Ophthalmic examination and evaluation Luis M Johnson MD Work Phone: [facility] Start: 04-12-2022 End: 04-12-2022 Patient encounter procedure Luis M Johnson MD Work Phone: [facility] Comment on above: Type 2 diabetes mathew itus with microalbuminuria, unspecified whether long term care social worker insulin use (HCC) (Primary Dx); Diabetic eye exam ([facility]); Hypertension, essential; Mixed hyperlipidemia; Gastroesophageal reflux disease without esophagitis; Recurrent major depression in partial remission ([facility]); Adjustment disorder, unspecified type; Generalized anxiety disorder; Recovering alcoholic ([facility]); WHIT (obstructive sleep apnea); Morbid obesity with body mass index (BMI) of 45.0 to 49.9 in adult ([facility]); Fibromyalgia; Low serum vitamin B12; Screening for colon cancer; Medication management Start: 04-10-2022 End: 04-10-2022 ambulatory [facility] Work Phone: Start: 04-10-2022 End: 04-10-2022 [facility] Start: 03-29-2022 Refill Luis M lemus MD Work Phone: [facility] Comment on above: Refill Request Start: 03-28-2022 ambulatory [facility] [place] Comment on above: Population Health Na vigation Outreach ([employer] care gap) Start: 02-25-2022 End: 03-11-2022 ambulatory [facility] Work Phone: Start: 02-25-2022 End: 03-11-2022 [facility] Start: 02-05-2022 Refill Luis M lemus MD Work Phone: [facility] Comment on above: flu shot received Start: 01-30-2022 End: 02-08-2022 ambulatory [facility] Work Phone: Start: 01-30-2022 End: 02-08-2022 [facility] Start: 01-08-2022 ambulatory [facility] [place] Comment on above: Population Health Na vigation Outreach ([employer] Care Gaps) Start: 01-03-2022 Telephone encounter Luis M Johnson MD Work Phone: [facility] Comment on above: Orders Start: 11-02-2021 End: 11-02-2021 Patient encounter procedure Luis M Johnson MD Work Phone: [facility] Comment on above: Elevated blood press ure reading without diagnosis of hypertension (Primary Dx) Start: 10-30-2021 Orders Only Sundeep Solis MD Work Phone: Orthopaedics Comment on above: Left hand pain (Prim sandra Dx); Bilateral shoulder pain, unspecified chronicity Start: 10-24-2021 Documentation procedure Mammog curtis Coordinator [facility] Start: 10-24-2021 Letter encounter Mammography Coordinator [facility] Department Start: 10-24-2021 Telephone encounter Summer cervantes PA-C Work Phone: [facility] Comment on above: Results Start: 10-23-2021 End: 10-23-2021 Subsequent hospital visit by physician Screen Mammo [facility] M[facility] Comment on above: Encounter for screen ing mammogram for breast cancer [Z12.31] Start: 10-22-2021 Telephone encounter Luis M Johnson MD Work Phone: [facility] [place] Comment on above: Referral Request Start: 10-17-2021 Telephone encounter Sindi Sadler MD Work Phone: [facility] [place] Comment on above: Appointment Start: 10-13-2021 Telephone encounter Luis M Johnson MD Work Phone: [facility] [place] Comment on above: Patient Update; Bindu ent Question Start: 10-12-2021 Telephone encounter Luis M Johnsno MD Work Phone: [facility] [place] Comment on above: Patient Update; FYI- No Action Needed Appointment Start: 10-10-2021 Patient encounter procedure Luis M Johnson MD Work Phone: [facility] Work Phone: Start: 09-24-2021 Refill Luis M lemus MD Work Phone: [facility] [place] Comment on above: Refill Request Start: 09-06-2021 Telephone encounter Luis M Johnson MD Work Phone: [facility] [place] Comment on above: Appointment Start: 04-06-2021 Patient encounter procedure Luis M Johnson MD Work Phone: [facility] Work Phone: Start: 04-03-2021 End: 04-03-2021 Patient encounter procedure LUIS M JOHNSON MD [facility] Start: 06-19-2020 Ophthalmic examinati on and evaluation Luis M Johnson MD Work Phone: [facility] Procedures Date Procedure Procedure Detail Performing Clinician Start: 10-19-2024 PFIZER-BIONTECH COVI D-19 VACCINE AGE 12+ YR (COMIRNATY) Luis M Johnson MD Work Phone: Start: 07-03-2024 Radiologic exam ches t 2 views Luis M Baez ECHOCARDIOGRAPHY TECHNOLOGIST.PERIOPERATIVE ASSISTANT Work Phone: Start: 07-03-2024 STREP Sung MOLECULAR (POC) Mary YOU Work Phone: Start: 10-17-2023 PFIZER-BIONTECH COVI D-19 VACCINE () AGE 12+ YR Luis M Johnson MD Work Phone: Start: 04-15-2023 Digital breast tomosynthesis unilateral Teddy Cox ECHOCARDIOGRAPHY TECHNOLOGIST.PERIOPERATIVE ASSISTANT Work Phone: Start: 04-15-2023 PFIZER-BIONTECH COVI D-19 VACCINE () AGE 12+ YR Teddy Michelle ECHOCARDIOGRAPHY TECHNOLOGIST.PERIOPERATIVE ASSISTANT Work Phone: Start: 10-21-2022 Radex hip unilateral with pelvis 2-3 views Sundeep Solis MD Work Phone: Start: 10-23-2021 End: 10-23-2021 Screening mammography bi 2-view breast inc cad Luis M Johnson MD Work Phone: Start: 01-06-2020 Mammography Luis M pardo MD Work Phone: Start: 03-03-2013 Colonoscopy Luis M pardo MD Work Phone: Plan of Treatment Date Care Activity Detail Author Start: 01-29-2026 Urine microalbumin profile [facility] Start: 10-22-2025 Hepatitis B screening Urine Al bumin:Creatinine Ratio [facility] Start: 10-19-2025 Annual PCP Team Paper Coating Machine Operator bairon Disease Visit Annual PCP Team Chronic Disease Visit [facility] Start: 10-19-2025 Diabetic foot examination Diabetic Foot Exam [facility] Start: 10-19-2025 Hepatitis B surface antibody level LDL Cholesterol [facility] Start: 10-19-2025 RSV Vaccine (1 - Ris k 60-74 years 1-dose series) RSV Vaccine (1 - Risk 60-74 years 1-dose series) [facility] Comment on above: Postponed from 06/22 (Insurance Coverage) Start: 06-10-2026 Screening for malign ant neoplasm of breast Mammogram Screening [facility] Comment on above: Postponed from 03/20 (Declined at this time) Start: 10-19-2025 Shingrix Vaccine (2 of 3) Shingrix Vaccine (2 of 3) [facility] Comment on above: Postponed from 06/24 (Insurance Coverage) Start: 07-03-2025 BP Controlled (<130/80) BP Controlle d (<130/80) [facility] Start: 04-21-2025 End: 04-21-2025 Patient encounter procedure 04/21/2025 1:00 PM EST Office Visit [facility] [place] [address] [place] [address] Summer Telles PA-C [address] [place], [place] [id number] 6 month follow up [facility] [place] Comment on above: 6 month follow up Start: 04-20-2025 Hemoglobin A1c measurement HbA1C [facility] [facility] Start: 04-19-2025 Annual PCP Team Paper Coating Machine Operator bairon Disease Visit Annual PCP Team Chronic Disease Visit [facility] Start: 04-19-2025 BP Controlled (<130/80) BP Controlle d (<130/80) [facility] Start: 04-19-2025 Hepatitis B surface antibody level LDL Cholesterol [facility] Start: 10-19-2024 End: 01-18-2025 Microalbumin/Creatinine [Mass Ratio] in Urine ALBUMIN/CREATININE RATIO, URINE Lab Routine Type 2 diabetes mellitus with diabetic microalbuminuria, unspecified whether prison insulin use (HCC) Expected: 10/19/2024, Expires: 01/18/2025 [facility] Comment on above: Expected: 10/19/2024 , Expires: 01/18/2025 Start: 10-19-2024 End: 01-18-2025 Urinalysis complete panel - Urine URINALYSIS, WITH MICROSCOPIC Lab Routine Type 2 diabetes mellitus with diabetic microalbuminuria, unspecified whether prison insulin use (HCC) Hypertension, essential Mixed hyperlipidemia Expected: 10/19/2024, Expires: 01/18/2025 [facility] Comment on above: Expected: 10/19/2024 , Expires: 01/18/2025 Start: 10-19-2024 End: 10-19-2024 Patient encounter procedure [facility] Comment on above: medicare wellness Start: 10-18-2024 Hemoglobin A1c measurement HbA1C [facility] Start: 10-17-2024 Hepatitis B screening Urine Al bumin:Creatinine Ratio [facility] Start: 10-16-2024 Annual PCP Team Paper Coating Machine Operator bairon Disease Visit Annual PCP Team Chronic Disease Visit [facility] Start: 10-16-2024 BP Controlled (<130/80) BP Controlle d (<130/80) [facility] Start: 10-16-2024 Diabetic foot examination Diabetic Foot Exam [facility] Start: 10-16-2024 Hepatitis B surface antibody level LDL Cholesterol [facility] Start: 10-16-2024 RSV Vaccine (1 - 1-d ose 60+ series) RSV Vaccine (1 - 1-dose 60+ series) [facility] Comment on above: Postponed from 06/22 (Insurance Coverage) Start: 10-16-2024 RSV Vaccine (1 - Ris k 60-74 years 1-dose series) RSV Vaccine (1 - Risk 60-74 years 1-dose series) [facility] Comment on above: Postponed from 06/22 (Insurance Coverage) Start: 10-16-2024 Shingrix Vaccine (2 of 3) Shingrix Vaccine (2 of 3) [facility] Comment on above: Postponed from 06/24 (Insurance Coverage) Start: 10-08-2024 Glaucoma screening Dilated Retinal E xam [facility] Start: 08-16-2024 Covid-19 Vaccine ( season) Covid-19 Vaccine () [facility] Start: 05-12-2024 Advance Directive Discussion Advance Directive Discussion [facility] Start: 05-12-2024 Medicare Advantage Annual Wellness Visit Medicare Advantage Annual Wellness Visit [facility] Start: 05-01-2024 Screening for malign ant neoplasm of colon [facility] Start: 04-19-2024 End: 07-19-2024 Hemoglobin A1c in Blood [facility] [employer] Work Phone: Comment on above: Expected: 04/19/2024 , Expires: 07/19/2024 Start: 04-19-2024 End: 07-19-2024 LIPID PANEL, NONFASTING [facility] Comment on above: Expected: 04/19/2024 , Expires: 07/19/2024 Start: 04-19-2024 End: 04-19-2024 Patient encounter procedure 04/19/2024 1:00 PM EST Office Visit [facility] [address] [facility] [id number] Teddy Cox APRN.PERIOPERATIVE ASSISTANT [address] [place] [id number] 6 month follow up [facility] Comment on above: 6 month follow up Start: 04-17-2024 Hemoglobin A1c measurement HbA1C [facility] Start: 04-15-2024 Annual PCP Team Paper Coating Machine Operator bairon Disease Visit Annual PCP Team Chronic Disease Visit [facility] Start: 04-15-2024 BP Controlled (<130/80) BP Controlle d (<130/80) [facility] Start: 03-20-2024 Mammography Mammogram Screening [facility] Start: 03-20-2024 Screening for malign ant neoplasm of breast Mammogram Screening [facility] Start: 01-11-2024 Influenza vaccination Influenza Vacc ine (#1) [facility] Start: 11-04-2023 End: 02-03-2024 25-hydroxyvitamin D3 [Mass/volume] in Serum or Plasma VITAMIN D 25 HYDROXY Lab Routine Hypercalcemia Expected: 11/04/2023, Expires: 02/03/2024 [facility] Work Phone: Comment on above: Expected: 11/04/2023 , Expires: 02/03/2024 Start: 10-30-2023 End: 10-30-2023 Patient encounter procedure 10/30/2023 2:15 PM EDT Appointment Radiology [address] [place] [id number] Osteopenia, senile [M85.80] Radiology Comment on above: Osteopenia, senile [ M85.80] Start: 10-30-2023 End: 10-30-2023 ambulatory 10/30/2023 1:15 PM EDT Results Only [facility] [address] [place] [address] [facility] Start: 10-20-2023 End: 01-19-2024 Calcium [Mass/volume] in Serum or Plasma CALCIUM, TOTAL Lab Routine Hypercalcemia Expected: 10/20/2023, Expires: 01/19/2024 [facility] Work Phone: Comment on above: Expected: 10/20/2023 , Expires: 01/19/2024 Start: 10-20-2023 End: 01-19-2024 Parathyrin.intact [Mass/volume] in Serum or Plasma PTH INTACT Lab Routine Hypercalcemia Expected: 10/20/2023, Expires: 01/19/2024 [facility] Comment on above: Expected: 10/20/2023 , Expires: 01/19/2024 Start: 10-15-2023 3 comp foot exam completed DIABETIC FOOT EXAM [facility] Start: 10-15-2023 ANNUAL PCP TEAM DISTRICT TRAFFIC CHIEF BAIRON DISEASE VISIT ANNUAL PCP TEAM CHRONIC DISEASE VISIT [facility] Start: 10-15-2023 BP CONTROLLED (<130/80) BP CONTROLLE D (<130/80) [facility] Start: 10-15-2023 Diabetic foot examination Diabetic Foot Exam [facility] Start: 10-03-2023 Hemoglobin A1c measurement HbA1C [facility] Start: 10-03-2023 Hemoglobin A1c/Hemoglobin.total in Blood HbA1C [facility] Start: 10-02-2023 Hepatitis B screening URINE AL BUMIN:CREATININE RATIO [facility] Start: 10-02-2023 Hepatitis B surface antibody level LDL CHOLESTEROL [facility] Start: 08-07-2023 ANNUAL PCP TEAM DISTRICT TRAFFIC CHIEF BARION DISEASE VISIT ANNUAL PCP TEAM CHRONIC DISEASE VISIT [facility] Start: 08-07-2023 BP CONTROLLED (<130/80) BP CONTROLLE D (<130/80) [facility] Start: 07-09-2023 ANNUAL PCP TEAM DISTRICT TRAFFIC CHIEF BAIRON DISEASE VISIT ANNUAL PCP TEAM CHRONIC DISEASE VISIT [facility] Start: 06-11-2023 ANNUAL PCP TEAM DISTRICT TRAFFIC CHIEF BAIRON DISEASE VISIT ANNUAL PCP TEAM CHRONIC DISEASE VISIT [facility] Start: 05-31-2023 Glaucoma screening Dilated Retinal E xam [facility] Start: 05-31-2023 Hepatitis C antibody , confirmatory test DILATED RETINAL EXAM [facility] Start: 05-14-2023 ANNUAL PCP TEAM DISTRICT TRAFFIC CHIEF BAIRON DISEASE VISIT ANNUAL PCP TEAM CHRONIC DISEASE VISIT [facility] Start: 05-12-2023 Advance Directive Discussion Advance Directive Discussion [facility] Start: 05-11-2023 ADVANCE DIRECTIVE DISCUSSION ADVANCE DIRECTIVE DISCUSSION [facility] Comment on above: Postponed from 05/12 (Declined at this time) Start: 04-23-2023 COLORECTAL CANCER SCREENING COLORECTAL CANCER SCREENING [facility] Start: 04-23-2023 FECAL OCCULT BLOOD FECAL OCCULT BLOO D [facility] Start: 04-23-2023 Screening for malign ant neoplasm of colon [facility] Start: 04-12-2023 ANNUAL PCP TEAM DISTRICT TRAFFIC CHIEF BAIRON DISEASE VISIT ANNUAL PCP TEAM CHRONIC DISEASE VISIT [facility] Start: 04-12-2023 SHINGRIX VACCINE (2 of 3) SHINGRIX VACCINE (2 of 3) [facility] Comment on above: Postponed from 06/24 (Insurance Coverage) Start: 04-10-2023 Hepatitis B surface antibody level LDL CHOLESTEROL [facility] Start: 04-04-2023 End: 07-04-2023 Comprehensive metabolic 2000 panel - Serum or Plasma COMP METABOLIC PANEL Lab Routine Hypertension, essential Mixed hyperlipidemia Type 2 diabetes mellitus with microalbuminuria, unspecified whether prison insulin use (HCC) Hypercalcemia Expected: 04/04/2023, Expires: 07/04/2023 [facility] Work Phone: Comment on above: Expected: 04/04/2023 , Expires: 07/04/2023 Start: 04-04-2023 End: 07-04-2023 Hemoglobin A1c in Blood HGB A1C Lab Routine Type 2 diabetes mellitus with microalbuminuria, unspecified whether prison insulin use (HCC) Expected: 04/04/2023, Expires: 07/04/2023 [facility] Work Phone: Comment on above: Expected: 04/04/2023 , Expires: 07/04/2023 Start: 04-04-2023 End: 07-04-2023 Parathyrin.intact [Mass/volume] in Serum or Plasma PTH INTACT BLD Lab Routine Hypercalcemia Expected: 04/04/2023, Expires: 07/04/2023 [facility] Work Phone: Comment on above: Expected: 04/04/2023 , Expires: 07/04/2023 Start: 04-03-2023 Hemoglobin A1c/Hemoglobin.total in Blood HBA1C [facility] Start: 01-10-2023 Covid-19 Vaccine ( season) Covid-19 Vaccine () [facility] Start: 01-10-2023 Influenza vaccination [facility] Start: 11-02-2022 ANNUAL PCP TEAM DISTRICT TRAFFIC CHIEF BAIRON DISEASE VISIT ANNUAL PCP TEAM CHRONIC DISEASE VISIT [facility] Start: 10-23-2022 Mammography [facility] Start: 10-10-2022 3 comp foot exam completed DIABETIC FOOT EXAM [facility] Start: 10-10-2022 ANNUAL PCP TEAM DISTRICT TRAFFIC CHIEF BAIRON DISEASE VISIT ANNUAL PCP TEAM CHRONIC DISEASE VISIT [facility] Start: 10-08-2022 Hemoglobin A1c/Hemoglobin.total in Blood HBA1C [facility] Start: 09-27-2022 End: 11-27-2022 ALBUMIN/CREAT RATIO RND UR ALBUMIN/CREAT RATIO RND UR Lab Routine Type 2 diabetes mellitus with microalbuminuria, unspecified whether long term care social worker insulin use (HCC) Expected: 09/27/2022, Expires: 11/27/2022 [facility] Work Phone: Comment on above: Expected: 09/27/2022 , Expires: 11/27/2022 Start: 09-27-2022 End: 11-27-2022 CBC W Auto Differential panel - Blood CBC + DIFF Lab Routine Type 2 diabetes mellitus with microalbuminuria, unspecified whether prison insulin use (HCC) Low serum vitamin B12 Expected: 09/27/2022, Expires: 11/27/2022 [facility] Work Phone: Comment on above: Expected: 09/27/2022 , Expires: 11/27/2022 Start: 09-27-2022 End: 11-27-2022 Cobalamin (Vitamin B12) [Mass/volume] in Serum or Plasma VITAMIN B12 BLOOD Lab Routine Gastroesophageal reflux disease without esophagitis Low serum vitamin B12 Medication management Expected: 09/27/2022, Expires: 11/27/2022 [facility] Work Phone: Comment on above: Expected: 09/27/2022 , Expires: 11/27/2022 Start: 09-27-2022 End: 11-27-2022 Comprehensive metabolic 2000 panel - Serum or Plasma COMP METABOLIC PANEL Lab Routine Type 2 diabetes mellitus with microalbuminuria, unspecified whether long term care social worker insulin use (HCC) Mixed hyperlipidemia Hypertension, essential Expected: 09/27/2022, Expires: 11/27/2022 [facility] Work Phone: Comment on above: Expected: 09/27/2022 , Expires: 11/27/2022 Start: 09-27-2022 End: 11-27-2022 Hemoglobin A1c in Blood HGB A1C Lab Routine Type 2 diabetes mellitus with microalbuminuria, unspecified whether prison insulin use (HCC) Expected: 09/27/2022, Expires: 11/27/2022 [facility] Work Phone: Comment on above: Expected: 09/27/2022 , Expires: 11/27/2022 Start: 09-27-2022 End: 11-27-2022 LIPID PANEL, NONFASTING LIPID PANEL, NONFASTING Lab Routine Type 2 diabetes mellitus with microalbuminuria, unspecified whether prison insulin use (HCC) Mixed hyperlipidemia Hypertension, essential Expected: 09/27/2022, Expires: 11/27/2022 [facility] Work Phone: Comment on above: Expected: 09/27/2022 , Expires: 11/27/2022 Start: 09-27-2022 End: 11-27-2022 Magnesium [Mass/volume] in Serum or Plasma MAGNESIUM BLD Lab Routine Gastroesophageal reflux disease without esophagitis Medication management Expected: 09/27/2022, Expires: 11/27/2022 [facility] Work Phone: Comment on above: Expected: 09/27/2022 , Expires: 11/27/2022 Start: 09-27-2022 End: 11-27-2022 Urinalysis complete panel - Urine URINALYSIS, WITH MICROSCOPIC Lab Routine Type 2 diabetes mellitus with microalbuminuria, unspecified whether long term care social worker insulin use (HCC) Mixed hyperlipidemia Hypertension, essential Expected: 09/27/2022, Expires: 11/27/2022 [facility] Work Phone: Comment on above: Expected: 09/27/2022 , Expires: 11/27/2022 Start: 09-05-2022 Hepatitis B screening URINE AL BUMIN:CREATININE RATIO [facility] Start: 09-05-2022 Hepatitis B surface antibody level LDL CHOLESTEROL [facility] Start: 07-17-2022 COVID-19 VACCINE (6 - Moderna series) COVID-19 VACCINE (6 - Moderna series) [facility] Start: 06-10-2022 Hepatitis C antibody , confirmatory test DILATED RETINAL EXAM [facility] Comment on above: Postponed from 06/16 (Currently Scheduled) Start: 05-12-2022 ADVANCE DIRECTIVE DISCUSSION ADVANCE DIRECTIVE DISCUSSION [facility] Start: 04-06-2022 ANNUAL PCP TEAM DISTRICT TRAFFIC CHIEF BAIRON DISEASE VISIT ANNUAL PCP TEAM CHRONIC DISEASE VISIT [facility] Start: 04-06-2022 SHINGRIX VACCINE (2 of 3) SHINGRIX VACCINE (2 of 3) [facility] Comment on above: Postponed from 06/24 (Insurance Coverage) Start: 03-07-2022 Hemoglobin A1c/Hemoglobin.total in Blood HBA1C [facility] Start: 01-10-2022 Influenza vaccination INFLUENZA (#1) [facility] Start: 12-04-2021 COLORECTAL CANCER SCREENING COLORECTAL CANCER SCREENING [facility] Start: 12-04-2021 FECAL OCCULT BLOOD FECAL OCCULT BLOO D [facility] Start: 11-29-2021 3 comp foot exam completed DIABETIC FOOT EXAM [facility] Start: 10-27-2021 COVID-19 VACCINE (5 - Booster for Moderna series) COVID-19 VACCINE (5 - Booster for Moderna series) [facility] Start: 07-19-2021 COVID-19 VACCINE (4 - Booster for Moderna series) COVID-19 VACCINE (4 - Booster for Moderna series) [facility] Start: 06-16-2021 Hepatitis C antibody , confirmatory test DILATED RETINAL EXAM [facility] Start: 05-12-2021 ADVANCE DIRECTIVE DISCUSSION ADVANCE DIRECTIVE DISCUSSION [facility] Start: 01-05-2021 Mammography MAMMOGRAM [facility] Start: 06-24-2016 Shingrix Vaccine (2 of 3) Shingrix Vaccine (2 of 3) [facility] Start: 03-03-2014 Colonoscopy COLONOSCOPY [facility] Start: 03-03-2014 Screening for malign ant neoplasm of colon Colonoscopy [facility] Start: 2011 Hepatitis B Vaccine (1 of 3 - Risk 3-dose series) Hepatitis B Vaccine (1 of 3 - Risk 3-dose series) [facility] Start: 2011 RSV Vaccine (1 - 1-d ose 60+ series) RSV Vaccine (1 - 1-dose 60+ series) [facility] Start: 1996 COLOGUARD (FIT-DNA) COLOGUARD (FIT-D NA) [facility] Start: [address] COLONOGRAPHY [facility] Start: 1996 Screening for malign ant neoplasm of colon [facility] Start: 1996 SIGMOIDOSCOPY SIGMOIDOSCOPY [facility] Start: 1969 BP CONTROLLED (<130/80) BP CONTROLLE D (<130/80) [facility] End: 11-15-2024 BD DXA TRABECULAR BONE SCORE (TBS) BD DXA TRABECULAR BONE SCORE (TBS) Radiology Routine Osteopenia, senile 1 Occurrences starting 10/17/2023 until 11/15/2024 [facility] Comment on above: 1 Occurrences starti ng 10/17/2023 until 11/15/2024 End: 05-19-2025 DBT Breast - bilateral screening MINI SCREENING W IDRIS Radiology Routine Encounter for screening mammogram for breast cancer 1 Occurrences starting 04/19/2024 until 05/19/2025 [facility] Comment on above: 1 Occurrences starti ng 04/19/2024 until 05/19/2025 End: 11-15-2024 DXA Skeletal system.axial Views for bone density DXA-AXIAL SKELETON Radiology Routine Osteopenia, senile 1 Occurrences starting 10/17/2023 until 11/15/2024 [facility] Work Phone: Comment on above: 1 Occurrences starti ng 10/17/2023 until 11/15/2024 DXA Skeletal system.axial Views for bone density DXA-AXIAL SKELETON Radiology Routine Osteopenia, senile 10/30/2023 2:08 PM EDT [facility] Work Phone: Hemoglobin.gastroint est inal.lower [Presence] in Stool by Immunoassay FECAL OCCULT BLOOD TEST Lab Routine Screening for colon cancer Ordered: 04/12/2022 [facility] Work Phone: Comment on above: Ordered: 04/12/2022 Hemoglobin.gastroint est inal.lower [Presence] in Stool by Immunoassay FECAL OCCULT BLOOD TEST Lab Routine Screening for colon cancer Ordered: 03/19/2023 [facility] Work Phone: Comment on above: Ordered: 03/19/2023 Hemoglobin.gastroint est inal.lower [Presence] in Stool by Immunoassay IMMUNOCHEMICAL FECAL OCCULT BLOOD TEST Lab Routine Screening for colon cancer Ordered: 10/19/2024 [facility] Work Phone: Comment on above: Ordered: 10/19/2024 End: 04-19-2024 MINI DIAGNOSTIC LEFT MINI DIAGNOSTIC LEFT Radiology Routine Abnormal mammogram of left breast 1 Occurrences starting 03/21/2023 until 04/19/2024 [facility] Work Phone: Comment on above: 1 Occurrences starti ng 03/21/2023 until 04/19/2024 End: 11-13-2023 MINI SCREENING MINI SCREENING Radiology Routine Encounter for screening mammogram for malignant neoplasm of breast 1 Occurrences starting 10/14/2022 until 11/13/2023 [facility] Work Phone: Comment on above: 1 Occurrences starti ng 10/14/2022 until 11/13/2023 MINI SCREENING MINI SCREENING Ra diology Routine Encounter for screening mammogram for malignant neoplasm of breast 03/20/2023 2:32 PM EST [facility] Work Phone: End: 05-19-2025 PAP TITRATION PSG (CPAP, BIPAP, ASV) PAP TITRATION PSG (CPAP, BIPAP, ASV) Procedures Routine WHIT (obstructive sleep apnea) 1 Occurrences starting 04/19/2024 until 05/19/2025 [facility] Comment on above: 1 Occurrences starti ng 04/19/2024 until 05/19/2025 Screening mammograph y bi 2-view breast inc cad MINI SCREENING Radiology Routine Encounter for screening mammogram for breast cancer 10/23/2021 2:23 PM EDT [facility] Work Phone: End: 04-19-2024 US BREAST LTD LEFT US BREAST LTD LEFT Radiology Routine Abnormal mammogram of left breast 1 Occurrences starting 03/21/2023 until 04/19/2024 [facility] Work Phone: Comment on above: 1 Occurrences starti ng 03/21/2023 until 04/19/2024 End: 11-29-2022 XR HAND GENERAL 3V PA/LAT/OBL LEFT XR HAND GENERAL 3V PA/LAT/OBL LEFT Radiology Routine Left hand pain 1 Occurrences starting 10/30/2021 until 11/29/2022 [facility] Work Phone: Comment on above: 1 Occurrences starti ng 10/30/2021 until 11/29/2022 End: 11-15-2023 XR HIP GENERAL 3V PELV/AP/LAT RIGHT XR HIP GENERAL 3V PELV/AP/LAT RIGHT Radiology Routine Pain in right hip 1 Occurrences starting 10/16/2022 until 11/15/2023 [facility] Work Phone: Comment on above: 1 Occurrences starti ng 10/16/2022 until 11/15/2023 End: 11-29-2022 XR SHOULDER GENERAL 3V OR MORE AP/TRUE AP/OTHER LEFT XR SHOULDER GENERAL 3V OR MORE AP/TRUE AP/OTHER LEFT Radiology Routine Bilateral shoulder pain, unspecified chronicity 1 Occurrences starting 10/30/2021 until 11/29/2022 [facility] Work Phone: Comment on above: 1 Occurrences starti ng 10/30/2021 until 11/29/2022 End: 11-29-2022 XR SHOULDER GENERAL 3V OR MORE AP/TRUE AP/OTHER RIGHT XR SHOULDER GENERAL 3V OR MORE AP/TRUE AP/OTHER RIGHT Radiology Routine Bilateral shoulder pain, unspecified chronicity 1 Occurrences starting 10/30/2021 until 11/29/2022 [facility] Work Phone: Comment on above: 1 Occurrences starti ng 10/30/2021 until 11/29/2022 [facility] Immunizations Immunization Date Immunization Notes Care Provider Min shin 10-19-2024 COVID-19 vaccine, ag e 12+ yr (Digerati [facility]) Luis M Johnson MD Work Phone: [facility] 02-16-2024 COVID-19 vaccine, ag e 12+ yr (PFIZER-BIONTECH COMNAT) Luis M Johnson MD Work Phone: [facility] 02-16-2024 influenza, high dose seasonal, preservative-free Luis M Johnson MD Work Phone: [facility] 10-17-2023 COVID-19 vaccine, ag e 12+ yr, season (PFIZER-BIONTECH) Luis M Johnson MD Work Phone: [facility] 04-15-2023 COVID-19 vaccine, ag e 12+ yr, season (PFIZER-BIONTECH) Teddy Cox APRN.PERIOPERATIVE ASSISTANT Work Phone: [facility] 02-11-2023 influenza (HD-IIV4) vaccine, age 65+ yr, high dose, quadrivalent, PF (FLUZONE HIGH-DOSE) Screen Wstr [facility] 02-11-2023 influenza, high dose seasonal, preservative-free Stormy Hamilton PA-C Work Phone: [facility] Work Phone: 02-11-2023 influenza virus vacc ine, unspecified formulation Summer Telles PA-C Work Phone: [facility] 02-05-2022 influenza, high dose seasonal, preservative-free Luis M Johnson MD Work Phone: [facility] Work Phone: 02-05-2022 influenza virus vacc ine, unspecified formulation Luis M Johnson MD Work Phone: [facility] 03-21-2021 COVID-19 vaccine, fu ll dose (MODERNA) Luis M Johnson MD Work Phone: [facility] 03-21-2021 influenza, high dose seasonal, preservative-free Luis M Johnson MD Work Phone: [facility] 08-10-2020 COVID-19 vaccine, fu ll dose (MODERNA) Luis M Johnson MD Work Phone: [facility] 07-14-2020 COVID-19 vaccine, fu ll dose (MODERNA) Luis M Johnson MD Work Phone: [facility] Work Phone: 03-17-2019 influenza, high dose seasonal, preservative-free Luis M Johnson MD Work Phone: [facility] 01-26-2018 influenza, high dose seasonal, preservative-free Luis M Johnson MD Work Phone: [facility] 03-15-2017 influenza, high dose seasonal, preservative-free Luis M Johnson MD Work Phone: [facility] 02-05-2017 pneumococcal polysaccharide vaccine, 23 valent Luis M Johnson MD Work Phone: [facility] 10-02-2016 pneumococcal conjuga te vaccine, 13 valent Luis M Johnson MD Work Phone: [facility] 04-29-2016 zoster vaccine, live Luis M Johnson MD Work Phone: [facility] Work Phone: 01-30-2016 influenza, injectabl e, quadrivalent, contains preservative Luis M Johnson MD Work Phone: [facility] 01-30-2016 tetanus toxoid, redu kailee diphtheria toxoid, and acellular pertussis vaccine, adsorbed Luis M Johnson MD Work Phone: [facility] Work Phone: 03-29-2015 influenza, seasonal, injectable Luis M Johnson MD Work Phone: [facility] 04-06-2014 influenza, seasonal, injectable Luis M Johnson MD Work Phone: [facility] 02-09-2013 influenza virus vacc ine, unspecified formulation Luis M Johnson MD Work Phone: [facility] 02-25-2012 influenza virus vacc ine, unspecified formulation Luis M Johnson MD Work Phone: [facility] 03-05-2011 influenza virus vacc ine, unspecified formulation Luis M Johnson MD Work Phone: [facility] 09-04-2009 tuberculin skin test ; purified protein derivative solution, intradermal Luis M Johnson MD Work Phone: [facility] 08-28-2009 tuberculin skin test ; purified protein derivative solution, intradermal Luis M Johnson MD Work Phone: [facility] 03-21-2008 influenza virus vacc ine, unspecified formulation Luis M Johnson MD Work Phone: [facility] Work Phone: 03-21-2008 pneumococcal polysaccharide vaccine, 23 valent Luis M Johnson MD Work Phone: [facility] Work Phone: 03-13-2006 influenza virus vacc ine, unspecified formulation Luis M Johnson MD Work Phone: [facility] Work Phone: 10-04-2005 tuberculin skin test ; purified protein derivative solution, intradermal Luis M Johnson MD Work Phone: [facility] 09-26-2005 tetanus and diphther ia toxoids, adsorbed, preservative free, for adult use (2 Lf of tetanus toxoid and 2 Lf of diphtheria toxoid) Luis M Johsnon MD Work Phone: [facility] [facility] tuberculin skin test ; purified protein derivative solution, intradermal Luis M Johnson MD Work Phone: [facility] Payers Date Payer Category Payer Self-pay [id number] 2024 Medicare [id number] 2019 Medicare AETNA MEDICARE A ETNA MEDICARE O [id number] 2019-Present [phone] [address] [place] [address] [facility] [id number] 2019 Medicare AETNA MEDICARE A ETNA MEDICARE HMO [id number] 2019-Present [phone] [address] [place] [address] HMO [id number] 2019 Medicare (Managed Care) [id number] 2019 Private Health Insurance [id number] 2015 Unknown [id number] 2002 Unknown [id number] Private Health Insurance [id number] Unknown [id number] Social History Date Type Detail Facility [facility] Start: 1950 Sex Assigned At Female A [facility] Start: 05-18-2018 End: 11-24-2024 Tobacco smoking status NHIS Ex-smoker [facility] Start: 10-11-1982 End: 10-11-2012 History of tobacco use Current smoker [facility] Start: 10-11-1982 End: 10-11-2012 History of tobacco use Cigarette Smoker [facility] Start: 05-18-2018 End: 10-14-2022 Cigarettes smoked current (pack per day) - Reported 0.5 [facility] Start: 05-18-2018 End: 07-03-2024 Tobacco use and exposure Smokeless tobacco non-user [facility] Start: 04-06-2021 End: 10-19-2024 Alcohol intake Current non-drinker of alcohol (finding) [facility] Start: 03-24-2020 End: 06-10-2022 History SDOH Alcohol Frequency 1 [facility] Start: 03-24-2020 History SDOH Alcohol Std Drinks 98 [facility] Start: 11-20-2019 End: 07-25-2020 History SDOH Social Connections Phone 2 [facility] Start: 11-20-2019 End: 06-10-2022 History SDOH Social Connections Living 4 [facility] Start: 11-20-2019 End: 06-10-2022 History SDOH Physical Activity DPW 0 [facility] Start: 11-20-2019 History SDOH Financial 5 [facility] Start: 11-20-2019 Education 16 [facility] Start: 1950 Sex Assigned At Not on file [facility] Start: 08-26-2021 End: 04-12-2022 Exposure to SARS-CoV-2 (event) Not sure [facility] Start: 04-06-2021 End: 04-06-2021 Tobacco smoking status NHIS Unknown if ever smoked [facility] Work Phone: Start: 06-03-[address] [facility] Start: 06-03-[address] [facility] Start: 06-03-2013 Non-smoker [facility] Start: 06-10-2022 History SDOH Social Connections Phone 3 [facility] Start: 06-10-2022 End: 10-14-2022 Social connection and isolation panel [facility] Active Member of [facility] bs or Organizations Not on file [facility] Are you now , , , , never or living with a partner? [facility] How often to you hav e a drink containing alcohol? Never [facility] Do you feel stress - tense, restless, nervous, or anxious, or unable to sleep at night because your mind is troubled all the time - these days [OSQ] Only a little [facility] (I/We) worried wheshine er (my/our) food would run out before (I/we) got money to buy more. Never [facility] Has the [employer], [employer], or water company threatened to shut off services in your home in past 12Mo No [facility] Do you feel stress - tense, restless, nervous, or anxious, or unable to sleep at night because your mind is troubled all the time - these days [OSQ] Not at all [facility] How hard is it for y ou to pay for the very basics like food, housing, medical care, and heating Not very hard [facility] Medical Equipment Procedure Code Equipment Code Equipment Original Text Equipment Identifier Dates Jesús Bn Smpx P Radpq Fd Strl - [id number] Start: 05-31-2013 Comment on above: Description: Simplex P Bone Cement Full Dose Ins Tib 4 11mm K n X3 Ps Trthln - [id number] Start: 05-31-2013 Comment on above: Description: [employer] X3 Tibial Bearing Insert PS, 4, 11mm Comp Fem 4 Rt Kn Jesús Ps Trthln - [id number] Start: 05-31-2013 Comment on above: Description: [employer] Posterior Stabilized Femoral, #4, PS, RT Ins Tib 4 Thk9mm 9mm Kn X3 - [id number] Start: 05-31-2013 Comment on above: Description: TIBIAL BEARING INSERT - PS Comp Pat 10mm 32mm Asym Trthln - [id number] Start: 05-31-2013 Comment on above: Description: [employer] X3 Asymmetric Patella, A32, 10mm Comp Pat 10mm 32mm Asym Trthln - [id number] Start: 05-31-2013 Comment on above: Description: asymmet yolanda patella Comp Fem 4 Lt Kn Ps Jesús Trthln - [id number] Start: 05-31-2013 Comment on above: Description: POSTERI OR STABILIZED FEMORAL Baseplt Tib Trthln 4 Prim - [id number] Start: 05-31-2013 Comment on above: Description: [employer] Primary Tibial Baseplate Baseplt Tib Trthln 4 Prim - [id number] Start: 05-31-2013 Comment on above: Description: primary tibial baseplate [id number], [id number], [id number], [id number] Start: 10-10-2021 End: 10-26-2024 Comment on above: Test blood sugar(s) 2 times daily. Dx: Other DM Code E11.29 Insulin: No A1c 7.5% 09/05/2021 Test blood sugar(s) 2 times daily. Dx: Other DM Code 11.29 Insulin: No, A1c 7.5% 09/05/2021 Functional Status Date Assessment Result Facility 10-24-2014 Are you deaf, or do you have serious difficulty hearing No 10/24/2014 1:29 PM EDT Hansel Echeverria APRN.PERIOPERATIVE ASSISTANT No [facility] Work Phone: 10-24-2014 Are you blind, or do you have serious difficulty seeing, even when wearing glasses No 10/24/2014 1:29 PM EDT Hansel Echeverria APRN.PERIOPERATIVE ASSISTANT No [facility] 10-24-2014 Do you have serious difficulty walking or climbing stairs No 10/24/2014 1:29 PM EDT Hansel Echeverria APRN.PERIOPERATIVE ASSISTANT No [facility] 10-24-2014 Do you have difficul ty dressing or bathing No 10/24/2014 1:29 PM EDT Hansel Echeverria APRN.PERIOPERATIVE ASSISTANT No [facility] 10-24-2014 Because of a physica l, mental, or emotional condition, do you have difficulty doing errands alone such as visiting a physician's office or shopping No 10/24/2014 1:29 PM EDT Hansel Echeverria APRN.PERIOPERATIVE ASSISTANT No [facility] Mental Status Date Assessment Result Facility 10-24-2014 Because of a physica l, mental, or emotional condition, do you have serious difficulty concentrating, remembering, or making decisions No 10/24/2014 1:29 PM EDT Hansel Echeverria APRN.PERIOPERATIVE ASSISTANT No [facility] Clinical Notes 03-01-2015 to 11-19-2024 Note Date & Type Note Facility 11-19-2024 Chief complaint+R lucas for visit Narrative NEOPLASM R EAR November 19, 2024 1:06 pm in office procedure December 02, 2024 1:02 pm Reason for Visit Admit Date Neoplasm of uncertain behavior of face J denise 2024 1:06pm [facility] Work Phone: 1(654) 863-395207-11-2025 Evaluation note* Diagnosis Onset Date Resolution Status Admit Date 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 Had she been off her Lipitor for a period of time? A1c is stable at 7% and would like to see her back down around 6.8% or lower. Advise her improved work on diet otherwise will noel to make a medication adjustment. Her B12 was 308 and typically level below 400 can increase the risk of memory issues. Advise her tostart taking OTC B12 500 mcg once a day. The rest of her labs and UA were ok. [facility]06-17-2025 Miscellaneous Notes* Telephone Encounter - Luis M Johnson MD - 10/26/2024 9:20 PM EDT Let patient know lipid panel showed Trigs elevated at 204 (goal<150 and was 164), HDL good at 57, LDL elevated at 116 (goal<100 and typically runs 77-85). Had she been off her Lipitor for a period of time? A1c is stable at 7% and would like to see her back down around 6.8% or lower. Advise her improved work on diet otherwise will noel to make a medication adjustment. Her B12 was 308 and typically level below 400 can increase the risk of memory issues. Advise her tostart taking OTC B12 500 mcg once a day. The rest of her labs and UA were ok. [facility] Telephone encounter Note * Telephone Encounter - Luis M Johnson MD - 10/26/2024 3:56 PM EDT The following approved medication requests have been transmitted electronically. Requested Prescriptions Signed Prescriptions Disp Refills metFORMIN ER (GLUCOPHAGE XR) 500 mg 24 hr tablet 360 tablet 1 Sig: Take 2 tablets by mouth two times a day. Authorizing Provider: LUIS M JOHNSON atorvastatin (LIPITOR) 40 mg tablet 90 tablet 1 Sig: Take 1 tablet by mouth once daily. Authorizing Provider: LUIS M JOHNSON busPIRone (BUSPAR) 15 mg tablet 180 tablet 1 Sig: Take 1 tablet by mouth two times a day. Authorizing Provider: LUIS M JOHNSON FLUoxetine (PROZAC) 20 mg capsule 180 capsule 1 Sig: Take 2 capsules by mouth once daily. Authorizing Provider: LUIS M JOHNSON glimepiride (AMARYL) 4 mg tablet 180 tablet 1 Sig: Take 1 tablet by mouth two times a day with meals. Authorizing Provider: LUIS M JOHNSON blood sugar diagnostic (BLOOD GLUCOSE TEST) test strip 50 strip 11 Sig: Test blood sugar(s) 2 times daily. Dx: Other DM Code E11.29 Insulin: No A1c 7.5% 09/05/2021 Authorizing Provider: LUIS M JOHNSON MD [facility]06-17-2025 Miscellaneous Notes* Telephone Encounter - Luis M Johnson MD - 10/26/2024 3:56 PM EDT The following approved medication requests have been transmitted electronically. Requested Prescriptions Signed Prescriptions Disp Refills metFORMIN ER (GLUCOPHAGE XR) 500 mg 24 hr tablet 360 tablet 1 Sig: Take 2 tablets by mouth two times a day. Authorizing Provider: LUIS M JOHNSON atorvastatin (LIPITOR) 40 mg tablet 90 tablet 1 Sig: Take 1 tablet by mouth once daily. Authorizing Provider: LUIS M JOHNSON busPIRone (BUSPAR) 15 mg tablet 180 tablet 1 Sig: Take 1 tablet by mouth two times a day. Authorizing Provider: LUIS M JOHNSON FLUoxetine (PROZAC) 20 mg capsule 180 capsule 1 Sig: Take 2 capsules by mouth once daily. Authorizing Provider: LUIS M JOHNSON glimepiride (AMARYL) 4 mg tablet 180 tablet 1 Sig: Take 1 tablet by mouth two times a day with meals. Authorizing Provider: LUIS M JOHNSON blood sugar diagnostic (BLOOD GLUCOSE TEST) test strip 50 strip 11 Sig: Test blood sugar(s) 2 times daily. Dx: Other DM Code E11.29 Insulin: No A1c 7.5% 09/05/2021 Authorizing Provider: LUIS M JOHNSON MD * Telephone Encounter - Katlyn Almanza MA - 10/26/2024 3:34 PM EDT Prescription Refill Information The patient has been identified by name and date of : Yes Caregiver verified no other encounters exist for this prescription request: Yes Caregiver confirmed with patient/requestor that no other refills are due, in the near future, with this provider at this time: Yes The last office visit in the department: 10/2024 Does the patient have a future office visit with this provider/department: Yes Requested Prescriptions Pending Prescriptions Disp Refills metFORMIN ER (GLUCOPHAGE XR) 500 mg 24 hr tablet 360 tablet 1 Sig: Take 2 tablets by mouth two times a day. atorvastatin (LIPITOR) 40 mg tablet 90 tablet 1 Sig: Take 1 tablet by mouth once daily. busPIRone (BUSPAR) 15 mg tablet 180 tablet 1 Sig: Take 1 tablet by mouth two times a day. FLUoxetine (PROZAC) 20 mg capsule 180 capsule 1 Sig: Take 2 capsules by mouth once daily. glimepiride (AMARYL) 4 mg tablet 180 tablet 1 Sig: Take 1 tablet by mouth two times a day with meals. blood sugar diagnostic (BLOOD GLUCOSE TEST) test strip 50 strip 11 Sig: Test blood sugar(s) 2 times daily. Dx: Other DM Code E11.29 Insulin: No A1c 7.5% 09/05/2021 Katlyn Almanza MA October 26, 2024 3:34 PM * Telephone Encounter - Jayda Garza - 10/26/2024 12:09 PM EDT Prescription Refill Information The patient has been identified by name and date of : Yes Caregiver verified no other encounters exist for this prescription request: Yes Caregiver confirmed with patient/requestor that no other refills are due, in the near future, with this provider at this time: Yes The last office visit in the department: 10-19-24 Does the patient have a future office visit with this provider/department: Yes Requested Prescriptions Pending Prescriptions Disp Refills metFORMIN ER (GLUCOPHAGE XR) 500 mg 24 hr tablet 360 tablet 1 Sig: Take 2 tablets by mouth two times a day. atorvastatin (LIPITOR) 40 mg tablet 90 tablet 1 Sig: Take 1 tablet by mouth once daily. busPIRone (BUSPAR) 15 mg tablet 180 tablet 1 Sig: Take 1 tablet by mouth two times a day. FLUoxetine (PROZAC) 20 mg capsule 180 capsule 1 Sig: Take 2 capsules by mouth once daily. glimepiride (AMARYL) 4 mg tablet 180 tablet 1 Sig: Take 1 tablet by mouth two times a day with meals. blood sugar diagnostic (BLOOD GLUCOSE TEST) test strip 50 strip 11 Sig: Test blood sugar(s) 2 times daily. Dx: Other DM Code E11.29 Insulin: No A1c 7.5% 09/05/2021 Jayda Quiles October 26, 2024 12:11 PM documented in [facility]Day[facility] Telephone encounter Note * Telephone Encounter - Katlyn Almanza MA - 10/26/2024 3:34 PM EDT Prescription Refill Information The patient has been identified by name and date of : Yes Caregiver verified no other encounters exist for this prescription request: Yes Caregiver confirmed with patient/requestor that no other refills are due, in the near future, with this provider at this time: Yes The last office visit in the department: 10/2024 Does the patient have a future office visit with this provider/department: Yes Requested Prescriptions Pending Prescriptions Disp Refills metFORMIN ER (GLUCOPHAGE XR) 500 mg 24 hr tablet 360 tablet 1 Sig: Take 2 tablets by mouth two times a day. atorvastatin (LIPITOR) 40 mg tablet 90 tablet 1 Sig: Take 1 tablet by mouth once daily. busPIRone (BUSPAR) 15 mg tablet 180 tablet 1 Sig: Take 1 tablet by mouth two times a day. FLUoxetine (PROZAC) 20 mg capsule 180 capsule 1 Sig: Take 2 capsules by mouth once daily. glimepiride (AMARYL) 4 mg tablet 180 tablet 1 Sig: Take 1 tablet by mouth two times a day with meals. blood sugar diagnostic (BLOOD GLUCOSE TEST) test strip 50 strip 11 Sig: Test blood sugar(s) 2 times daily. Dx: Other DM Code E11.29 Insulin: No A1c 7.5% 09/05/2021 Katlyn Almanza MA October 26, 2024 3:34 PM [facility]06-17-2025 Telephone encounter Note* Telephone Encounter - Jayda Garza - 10/26/2024 12:09 PM EDT Prescription Refill Information The patient has been identified by name and date of : Yes Caregiver verified no other encounters exist for this prescription request: Yes Caregiver confirmed with patient/requestor that no other refills are due, in the near future, with this provider at this time: Yes The last office visit in the department: 10-19-24 Does the patient have a future office visit with this provider/department: Yes Requested Prescriptions Pending Prescriptions Disp Refills metFORMIN ER (GLUCOPHAGE XR) 500 mg 24 hr tablet 360 tablet 1 Sig: Take 2 tablets by mouth two times a day. atorvastatin (LIPITOR) 40 mg tablet 90 tablet 1 Sig: Take 1 tablet by mouth once daily. busPIRone (BUSPAR) 15 mg tablet 180 tablet 1 Sig: Take 1 tablet by mouth two times a day. FLUoxetine (PROZAC) 20 mg capsule 180 capsule 1 Sig: Take 2 capsules by mouth once daily. glimepiride (AMARYL) 4 mg tablet 180 tablet 1 Sig: Take 1 tablet by mouth two times a day with meals. blood sugar diagnostic (BLOOD GLUCOSE TEST) test strip 50 strip 11 Sig: Test blood sugar(s) 2 times daily. Dx: Other DM Code E11.29 Insulin: No A1c 7.5% 09/05/2021 Jayda Qiules October 26, 2024 12:11 PM [facility] Work Phone: [phone]) 705-804506-10-2025 Instructions* Patient Instructions* Luis M Johnson MD - 10/19/2024 1:56 PM EDT Consider getting the shingrix vaccine for the prevention of shingles from a local pharmacy and the RSV vaccine. Please bring in copies of your power of assistant district attorney for health care and living will. Please get your diabetic eye exam set up for 2024. We discussed the mole on your face and moles on your back: - The mole on your face appears to be a seborrheic keratosis, but since it has started to pigment and change, I am referring you to a plastic surgeon at [facility] for further evaluation and possible removal. They will contact you to schedule the appointment. - The moles on your back were noted but no immediate action is required unless they change in size,shape, or color. Please monitor them and let us know if you notice any changes. We discussed your weight and exercise: - You mentioned gaining weight and owning a recumbent exercise bike. I encourage you to start usingthe bike regularly to help with weight management. - Continue eating a balanced diet, focusing on portion control and limiting overconsumption of fruits and vegetables, even though they are healthy. We discussed your fibromyalgia and hip pain: - Continue taking kwfi-vvq-eqwhfxk magnesium and Tylenol as needed for pain relief. You may also continue meloxicam as prescribed. - Perform the physical therapy exercises you learned previously to help manage your hip pain and bursitis. - If your symptoms worsen or do not improve, please let us know. We discussed your COVID-19 booster and other vaccines: - You received your 6-month COVID-19 booster today. - I recommend getting the Shingrix vaccine (for shingles) and the RSV vaccine. Medicare will cover these vaccines if administered at a pharmacy. Please plan to get these at your convenience. We discussed your sleep concerns: - I am referring you to a sleep specialist in this building for further evaluation of your CPAP useand sleep quality. They will contact you to schedule an appointment. We discussed your colon cancer screening: - You prefer to continue with the stool test for colon cancer screening. You will receive the home stool kit and instructions. We discussed your eye health: - Please schedule an eye exam as you have not had one this year. We discussed your healthcare documents: - Please bring in your living will and healthcare power of assistant district attorney documents during your next visit. We discussed your lab work: - I have ordered your labs. You may complete them today or return at a later time. Follow-up: - Your next follow-up appointment is scheduled in 6 months. Please contact us if you have any questions or concerns before then. Screening schedule The following prevention plan is recommended: RSV Vaccine(1 - Risk 60-74 years 1-dose series) Never done Shingrix Vaccine(2 of 3) due on 06/24/2016 Mammogram Screening due on 03/20/2024 Colorectal Cancer Screening due on 05/01/2024 Advance Directive Discussion due on 05/12/2024 Covid-19 Vaccine( season) due on 08/16/2024 HbA1C due on 10/18/2024 Dilated Retinal Exam due on 10/08/2024 Diabetic Foot Exam due on 10/16/2024 Urine Albumin:Creatinine Ratio due on 10/17/2024 WHAT YOU CAN DO TO PREVENT FALLS Many falls can be prevented. By making some changes, you can lower your chances of falling. Four things YOU can do to prevent falls for you* and your caregiver 1. Begin a regular exercise program Exercise is one of the most important ways to lower your chances of falling. It makes you stronger and helps you feel better. Exercises that improve balance and coordination (like Clay Chi) are the most helpful. Lack of exercise leads to weakness and increases your chances of falling. Ask your doctor or health care provider about the best type of exercise program for you. 2. Have your health care provider review your medicines Have your doctor or pharmacist review all the medicines you take, even pedi-jhv-hzejsca medicines. As you get older, the way medicines work in your body can change. Some medicines, or combinations of medicines, can make you sleepy or dizzy andcan cause you to fall. 3. Have your vision checked Have your eyes checked by an eye doctor at least once a year. You may be wearing the wrong glasses or have a condition like glaucoma or cataracts that limits your vision. Poor vision can increase your chances of falling. 4. Make your home safer About half of all falls happen at home. To make your home safer: Remove things you can trip over (like papers, books, clothes, and shoes) from stairs and places where you walk. Remove small throw rugs or use double-sided tape to keep the rugs from slipping. Keep items you use often in cabinets you can reach easily without using a step stool. Have grab bars put in next to your toilet and in the tub or shower. Use non-slip mats in the bathtub and on shower floors. Improve the lighting in your home. As you get older, you need brighter lights to see well. Hang light-weight curtains or shades to reduce glare. Have handrails and lights put in on all staircases. Wear shoes both inside and outside the house. Avoid going barefoot or wearing slippers. For more information, contact: Centers for Disease Control and Prevention www.cdc.gov/injury * This information may not apply if you have certain medical conditions. [facility] History of Present illness Narrative* Luis M Johnson MD - 10/19/2024 1:40 PM EDT Images from the original note were not included. Beverly Givens is a 74 year old female here for a Medicare wellness visit. Medicare Health Risk Assessment General Health Fair Exercise: Minutes/Day 0 min Exercise: Days/Week 0 days Alcohol: Daily Use Never Alcohol: Drinks/Day Patient does not drink Alcohol: 6 or more drinks Never Feel off balance No Concerns: Teeth/Dentures No Concerns: Sexual function No Troubled by feelings None of the above Frequency: Eating healthy diet Several days ADLs requiring help None of the above Safety precautions in home/vehicle Yes Smoke, vape, chews tobacco No Difficulty hearing No Difficulty seeing No Current Providers Specialists: I have reviewed specialist-related care of the patient in the medical record. Current care team: Patient Care Team: Luis M Johnson MD as PCP - General (Family Medicine) Teddy Cox APRN.ELOISA as [employer] Engagement Planning Operator (Family Medicine) Summer Telles PA-C as [employer] Engagement Planning Operator (Family Medicine) optho Medical/Family history review Reviewed and updated problem list, medical/surgical/family/social history, medications, and allergies. Opioid use review Opioid Medications (last 90 days) No data to display Anxiety/Depression screening PHQ-9 Score: 3 (Minimal Depression) ASHELY-7 Score: 0 . Recommendation: continuing current treatment plan Cognitive screening Score: 5 Cognitive screening reviewed and No further action needed (score 3-5). Functional Observation Was the patient's Timed Up & Go test unsteady or >= 12 seconds? No Advance Care Planning Patient did not wish or was not able to name a surrogate decision maker or provide an advance care plan Measurements BP 116/60 Pulse (!) 121 Resp 18 Ht 170.2 cm (5' 7") Wt 130.2 kg (287 lb) SpO2 97% BMI 44.95 kg/m Vision Screening: Follows with optometry/ophthalmology Assessment/Plan Medicare annual wellness visit, subsequent (Z00.00) - Counseled on healthy diet and regular exercise - Fall avoidance information provided - Personalized prevention plan provided See below Chief Complaint Patient presents with: Medicare Wellness Exam HPI Beverly Givens is a 74 year old female who presents here today for Chronic Medical Conditions. andMedicare Annual Visit. Patient with hx of DM type 2, GERD, Hyperlipidemia, WHIT, Anxiety, depression, morbid obesity, Fibromyalgia, ex-smoker, osteopenia, osteoarthritis as well as those reviewed and addressed below and in ROS Ref Range & Units 6 mo ago (04/19/24) 1 yr ago (10/17/23) 1 yr ago (04/04/23) 2 yr ago (10/01/22) 2 yr ago (04/10/22) 3 yr ago (09/05/21) 3 yr ago (03/27/21) Hemoglobin A1C 4.3 - 5.6 % 7.0 High 7.8 High CM 6.8 High CM 7.3 High CM 7.2 High CM 7.5 High CM 6.7 High Patient sees Ophthalmology last visit 10/2023. Needs to schedule her appt for this year. Beverly reports a darkening mole on her face, which was initially flesh-colored but has gradually become darker. She also mentions two large moles on her back that have been present for a while. She has not seen a pharm spec and started using Vitality Oils on her face, which she believes may havecoincided with the changes in the mole's appearance. She reports weight gain and acknowledges a lack of exercise, despite owning a recumbent exercise bike. Her diet includes quinoa and eggs as primary protein sources, and she admits to overeating fruits and vegetables, considering them "free" foods. She also mentions cravings for potatoes and occasionally forgetting to eat due to being engrossed in activities like reading. Beverly reports that her fibromyalgia symptoms have been exacerbated recently, particularly noting tightness in her back. She also mentions a groin strain that sometimes cramps, which she manages withmagnesium supplements and extra- strength Tylenol gel caps in addition to her prescribed meloxicam. She expresses reluctance to receive injections for her low back issues, stating that they provide only temporary relief. She reports occasional wheezing, which she attributes to her inhaler, and a recent episode of pain in her armpit that radiated to her back and shoulder blade, resembling pleuritic pain but resolved by the morning. She also notes occasional swelling in her legs and feet, which she attributes to saltintake and manages with compression stockings. She denies recent fevers, frequent headaches, sudden changes in hearing or vision, issues with her nose or throat, lumps or swelling in her neck, frequent nausea, vomiting, diarrhea, heartburn, hematuria, or dysuria. She also denies seizures, tremors, or syncope. Beverly has not had any surgeries in the past year and is not aware of any new health issues in her blood relatives, although her son was diagnosed with Sj gren's syndrome. She has a living will and power of assistant district attorney for healthcare. She has not had an eye exam this year and prefers stool testing forcolon cancer screening. She is willing to receive her 6-month COVID-19 booster. Past medical history, appointments, medications, allergies reviewed. Previous Medical History PAST MEDICAL HISTORY Diagnosis Date Adjustment disorder 10/29/2011 Advance directive discussed with patient 10/10/2021 Discussed 10/2021 Arthritis of knee, right 12/23/2012 Arthritis of left knee 05/28/2013 BPV (benign positional vertigo), unspecified laterality 11/22/2019 Chronic pain of both shoulders 10/10/2021 Chronic pain syndrome 11/26/2015 Sees Chronic sacroiliac (SI) strain 08/27/2013 DDD (degenerative disc disease), lumbar 07/26/2014 Ex-smoker 03/17/2019 Quit 09/2018 Fibromyalgia 06/06/2009 Foot callus 11/29/2020 Gastroesophageal reflux disease without esophagitis 10/02/2016 Generalized anxiety disorder 03/13/2006 Generalized osteoarthrosis, unspecified site Glaucoma History of knee replacement procedure of right knee Hx of colonic polyp 08/19/2018 Hypertension, essential 04/12/2022 Low serum vitamin B12 10/10/2021 Lumbago 05/19/2015 Medicare annual wellness visit, subsequent 08/05/2017 last done: 11/22/19 Medical B eligibilty date 06/12/2016 Mixed hyperlipidemia 02/12/2005 WHIT (obstructive sleep apnea) 07/04/2010 Titration done 01/2013 IMPRESSION: 1. At a CPAP setting of 12 cmH2O, the apnea- hypopnea and arousal indices were normalized. At this setting, snoring was eliminated and the oxygen saturation was maintained above 90%. Of note, both REM and supine sleep were present when this setting was tested. 2. Abnormal sleep architecture likely due to respiratory events, PAP titration, first night effect. RECOMMENDATIONS: CPAP 12 cmH20 with humidification. INTERPRETING PHYSICIAN: David Wolfe MD PSG done @ [facility] 11. Complete report has been scanned into [employer]. Neurology procedures. Osteopenia 06/07/2008 Osteopenia, senile 06/07/2008 Primary osteoarthritis of right hip 03/28/2023 Recurrent major depression in partial remission 05/30/2005 Stasis dermatitis of right lower extremity due to peripheral venous hypertension 04/02/2016 Status post left hip replacement Trochanteric bursitis of left hip 03/28/2023 Previous Surgical History PAST SURGICAL HISTORY Procedure Laterality Date ARTHROSCOPY KNEE DIAGNOSTIC W/WO SYNOVIAL BX SPX Arthroscopy, left knee ARTHRP ACETBLR/PROX FEM PROSTC AGRFT/ALGRFT left Hip replacement, total ARTHRP KNE CONDYLE&PLATU MEDIAL&LAT COMPARTMENTS 05/31/13 Knee replacement, total bilateral COLONOSCOPY FLX DX W/COLLJ SPEC WHEN PFRMD 03/03/2013 Colonoscopy, repeat 5 yrs DILATION & CURETTAGE DX&/THER NONOBSTETRIC Dilation & curettage ESOPHAGOGASTRODUODENOSCOPY TRANSORAL DIAGNOSTIC 03/03/13 EGD EXC CYST/ABERRANT BREAST TISSUE OPEN 1/> LESION 07/19/09 Exc upper inner left breast SC mass HYSTEROSCOPY, DIAGNOSTIC (SEPARATE Hysteroscopy Family History FAMILY HISTORY Problem Relation Age of Onset Osteoporosis Mother Cancer Mother skin Colon Cancer Mother 88 Diabetes Father Cancer Sister breast other (Other) Other fibromyalgia Patient Allergies ALLERGIES Allergen Reactions Famciclovir Rash large vesicles of fingers (2 fingers) Fentanyl Mental Status Change patches Lamictal [Lamotrigi* Mental Status Change mental cloudy Lyrica [Pregabalin] Other: See Comments Increased depression Oxycontin [Oxycodon* Other: See Comments Anxiety, depression Wellbutrin [Bupropi* Intolerance Mental status change Atarax [Hydroxyzine] Mental Status Change Niacin Other: See Comments depression Prevacid [Lansopraz* Unknown Current Medications Current Outpatient Medications on File Prior to Visit Medication Sig cyclobenzaprine (FLEXERIL) 10 mg tablet Take 1 tablet by mouth two times a day as needed. SITagliptin phosphate (JANUVIA) 100 mg tablet Take 1 tablet by mouth once daily. busPIRone (BUSPAR) 15 mg tablet Take 1 tablet by mouth two times a day. atorvastatin (LIPITOR) 40 mg tablet Take 1 tablet by mouth once daily. FLUoxetine (PROZAC) 20 mg capsule Take 2 capsules by mouth once daily. metFORMIN ER (GLUCOPHAGE XR) 500 mg 24 hr tablet Take 2 tablets by mouth two times a day. pantoprazole DR (PROTONIX) 20 mg tablet take 1 tablet daily 1/2 hour before breakfast on an empty stomach glimepiride (AMARYL) 4 mg tablet Take 1 tablet by mouth two times a day with meals. amLODIPine (NORVASC) 10 mg tablet Take 1 tablet by mouth once daily. meloxicam (MOBIC) 15 mg tablet Take 1 tablet by mouth once daily. With food. lisinopril (ZESTRIL) 30 mg tablet Take 1 tablet by mouth once daily. blood sugar diagnostic (BLOOD GLUCOSE TEST) test strip Test blood sugar(s) 2 times daily. Dx: OtherDM Code E11.29 Insulin: No A1c 7.5% 09/05/2021 albuterol HFA (PROVENTIL HFA, VENTOLIN HFA) 90 mcg/actuation inhaler Inhale 2 Puffs as instructed every 4 hours as needed. pioglitazone (ACTOS) 45 mg tablet Take 1 tablet by mouth once daily. fluticasone (FLONASE) 50 mcg/actuation nasal spray Use 2 Sprays in each nostril once daily. Rinse mouth after use. Lancets lancets Test blood sugar(s) 2 times daily. Dx: Other DM Code 11.29 Insulin: No, A1c 7.5% 09/05/2021 meclizine (ANTIVERT) 25 mg tab Take 1 tablet by mouth every 6 hours as needed (dizziness). cholecalciferol (VITAMIN D) 1,000 unit tab tablet Take 1 tablet by mouth once daily. Take 4 tabletsdaily Multivitamin capsule Take 1 capsule by mouth once daily. aspirin, enteric coated (ADULT ASPIRIN REGIMEN) 81 mg EC tablet Take 1 tablet by mouth once daily. COMPOUNDED PRESCRIPTION Compression stockings, thigh high 15-20mmHg Dx: leg edema No current facility-administered medications on file prior to visit. Social History Social History Tobacco Use Smoking status: Former Current packs/day: 0.00 Average packs/day: 0.5 packs/day for 30.0 years (15.0 ttl pk-yrs) Types: Cigarettes Start date: 10/11/1982 Quit date: 10/11/2012 Years since quittin.0 Smokeless tobacco: Never Vaping Use Vaping status: Never Used Substance Use Topics Alcohol use: No Drug use: No Comment: hx abuse- clean for 20 yrs per pt report Review of Symptoms REVIEW OF SYSTEMS GENERAL: No weight loss, malaise or fevers HEENT: Negative for frequent or significant headaches, No changes in hearing or vision, no nose bleeds or other nasal problems NECK: Negative for lumps, goiter, pain and significant neck swelling RESPIRATORY: Negative for cough, hemoptysis, COPD, dyspnea or shortness of breath. Occasional wheezing. CARDIOVASCULAR: Negative for chest pain, increased leg swelling, hypertension, CHF or palpitations GI: No nausea, vomiting, or diarrhea, No heartburn or reflux symptoms, and no blood : No history of dysuria, frequency or blood MUSCULOSKELETAL: see HPI. Otherwise has her chronic stable pain. SKIN: Negative for, rash, and itching. Se HPI PSYCH: Negative for sleep disturbance, mood disorder and recent psychosocial stressors HEMATOLOGY/LYMPHOLOGY: Negative for prolonged bleeding, bruising easily or swollen nodes ENDOCRINE: Negative for cold or heat intolerance, symptoms of low BS's NEURO: No history of headaches, syncope, paralysis, seizures or tremors SEE HPI EXAM: BP 116/60 Pulse (!) 121 Resp 18 Ht 170.2 cm (5' 7") Wt 130.2 kg (287 lb) SpO2 97% BMI 44.95 kg/m Last 5 Encounter Wt Readings: Date: Wt: 10/19/2024 130.2 kg (287 lb) 07/03/2024 127.1 kg (280 lb 3.3 oz) 04/19/2024 123.4 kg (272 lb) 10/17/2023 133.4 kg (294 lb) 04/15/2023 139.3 kg (307 lb) General Appearance: Well appearing, alert, in no acute distress, well-hydrated, well nourished. andMorbidly obese. Skin: Skin color, texture, turgor normal, no suspicious rashes. right side in front of ear that hasa lesion that started to become pigmented Head: Normocephalic, no masses, lesions, tenderness or abnormalities. Eyes: Anicteric sclera. Pupils are equally round and reactive to light. Extraocular movements are intact. . Ears: External ears, TM's normal, canals clear. Nose/Sinuses: Nares normal, septum midline, mucosa normal, no drainage or sinus tenderness. Oropharynx: Lips, mucosa, and tongue normal, teeth and gums normal, oropharynx normal. Neck: Supple, no adenopathy; thyroid symmetric, normal size, no bruits. Lungs: Lungs clear to auscultation. No wheezing, rhonchi, rales.. Heart: RRR without murmur, gallop, or rubs. No ectopy. Abdomen: Normal abdominal exam, Abdomen soft, non-tender. Bowel sounds normal. No masses, organomegaly. Extremities: No deformities, skin discoloration, clubbing or cyanosis. Good capillary refill. Has 2+ pitting edema in both feet without compression socks on. . Musculoskeletal: Muscular strength intact, No joint swelling, deformity, or tenderness. Peripheral Pulses: Normal. Neurologic: Gait: aided with cane.. Sensation to light touch and crainal nerves 2-12 intact.. Diabetic Foot Exam: Feet: Shoes and socks removed, no deformities, ulcers, calluses, sensitive to 10 gm microfilament, and vibratory exam within normal limits Skin: warm, dry, and no callouses or ulcer Vascular Pulses: Normal SEMMES-NOEL MONOFILAMENT TESTING Left Foot Right Foot Dorsal Surface Intact Dorsal Surface Intact Plantar Surface Intact Plantar Surface Intact Health Maintenance List Colorectal Cancer Screening due on 05/01/2024 Medicare Advantage Annual Wellness Visit due on 05/12/2024 Dilated Retinal Exam due on 10/08/2024 Urine Albumin:Creatinine Ratio due on 10/17/2024 Mammogram Screening due on 10/19/2025 RSV Vaccine(1 - Risk 60-74 years 1-dose series) due on 10/19/2025 Shingrix Vaccine(2 of 3) due on 10/19/2025 HbA1C due on 04/20/2025 LDL Cholesterol due on 10/19/2025 Diabetic Foot Exam due on 10/19/2025 Annual PCP Team Chronic Disease Visit due on 10/19/2025 DTaP,Tdap,Td Vaccine(2 - Td or Tdap) due on 01/29/2026 Bone Density Screening Completed Influenza Vaccine Completed Advance Directive Discussion Completed Hepatitis C Screening Completed Covid-19 Vaccine Completed Pneumococcal Vaccine: 50+ Completed Data reviewed Assessment and Plan 1. Medicare annual wellness visit, subsequent (Z00.) Comprehensive evaluation performed. - Scheduled follow-up in 6 months. 2. Type 2 diabetes mellitus with diabetic microalbuminuria, unspecified whether long term care social worker insulin use (HCC) (E11.29) Patient is on Januvia; recent dietary indiscretions noted. - Ordered labs to monitor glycemic control. check CMP. lipid, Ua, urine microalbumin, A1c, CBC - Discussed importance of dietary management. 3. Diabetic eye exam (HCC) (Z01.00) No eye exam performed this year. - Advised patient to schedule an eye exam. 4. Hypertension, essential (I10) Blood pressure management discussed. - Continue current antihypertensive regimen. - check labs as above 5. Mixed hyperlipidemia (E78.2) Cholesterol management discussed. - Continue current lipid-lowering therapy. - check labs as above 6. Gastroesophageal reflux disease without esophagitis (K21.9) Condition stable. - Continue current management. - check B12 and Mg. 7. Generalized anxiety disorder (F41.1) Recurrent major depression in partial remission (F33.41) Adjustment disorder, unspecified type (F43.20) Patient reports stability on current medications. - Continue current psychiatric medications. 8. Fibromyalgia (M79.7) Increased pain reported, particularly in the back. Patient using magnesium and meloxicam with Tylenol for pain management. - Continue current pain management regimen. - Discussed potential benefits of physical therapy. 9. Low serum vitamin B12 (E53.8) Condition stable. - Continue current supplementation. - check B12 10. Morbid obesity with body mass index (BMI) of 45.0 to 49.9 in adult (HCC) (E66.01) Patient acknowledges lack of exercise and dietary indiscretions. - Discussed importance of regular physical activity and balanced diet. 11. 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 - Continue support and monitoring. 12. WHIT (obstructive sleep apnea) (G47.33) Patient not currently seeing a sleep specialist. - Referred to sleep specialist in the building. 13. Foot callus (L84) Condition noted. no significant calluses on exam today. - Continue regular foot care. 14. Chronic pain syndrome (G89.4) Chronic pain management discussed. - Continue current pain management regimen. - used to see pain management and perfers not to at this time. 15. Osteopenia, senile (M85.80) Condition stable. - Continue current management. 16. Advance directive discussed with patient (Z71.89) Patient has a living will and power of assistant district attorney for health care. - Advised patient to bring copies of advance directives to the next visit. 17. Medication management (Z79.899) Reviewed current medications. - Sent refills to pharmacy. 18. Need for vaccination (Z23) COVID-19 booster due; RSV and Shingrix vaccines discussed. - Administered COVID-19 booster. - Advised patient to receive RSV and Shingrix vaccines at a pharmacy. 19. Screening for colon cancer (Z12.11) Patient prefers , stool test for screening. - Provided home stool test kit. 20. Encounter for screening mammogram for breast cancer (Z12.31) Screening mammogram discussed. - Patient declined scheduling at this time due to cost concerns. 21. Neoplasm of uncertain behavior of skin of face (D48.5) Lesion on face with recent pigmentation change; possible seborrheic keratosis. - Referred to plastic surgery at [facility] for evaluation and potential removal. Requested Prescriptions Signed Prescriptions Disp Refills albuterol HFA (PROVENTIL HFA, VENTOLIN HFA) 90 mcg/actuation inhaler 1 each 1 Sig: Inhale 2 puffs as instructed every 4 hours as needed. pantoprazole DR (PROTONIX) 20 mg tablet 90 tablet 1 Sig: take 1 tablet daily 1/2 hour before breakfast on an empty stomach SITagliptin phosphate (JANUVIA) 100 mg tablet 90 tablet 1 Sig: Take 1 tablet by mouth once daily. F/u 6 months Luis M Johnson MD I spent a total of 40 minutes on the date of the service which included preparing to see the patient, [id number] patient care, completing clinical documentation, performing a medically appropriate examination, counseling and educating the patient/family/caregiver and ordering medications, tests, or procedures. Recording using [employer] software for draft documentation of the visit was discussed with the patient/authorized community representative; all questions welcomed and answered. Patient/authorized community representative agreed to proceed documented in [facility]Day[facility] NoteHNO ID: [id number] Author: LUIS M JOHNSON MD Service: ? Author Type: Physician Type: Progress Notes Filed: 10/20/2024 08:51 Note Text: Beverly Givens is a 74 year old female here for a Medicare wellness visit. Medicare Health Risk Assessment General Health Fair Exercise: Minutes/Day 0 min Exercise: Days/Week 0 days Alcohol: Daily Use Never Alcohol: Drinks/Day Patient does not drink Alcohol: 6 or more drinks Never Feel off balance No Concerns: Teeth/Dentures No Concerns: Sexual function No Troubled by feelings None of the above Frequency: Eating healthy diet Several days ADLs requiring help None of the above Safety precautions in home/vehicle Yes Smoke, vape, chews tobacco No Difficulty hearing No Difficulty seeing No Current Providers Specialists: I have reviewed specialist-related care of the patient in the medical record. Current care team: Patient Care Team: Luis M Johnson MD as PCP - General (Family Medicine) Teddy Cox APRN.PERIOPERATIVE ASSISTANT as [employer] Engagement Planning Operator (Family Medicine) Summer Telles PA-C as [employer] Engagement Planning Operator (Family Medicine) optho Medical/Family history review Reviewed and updated problem list, medical/surgical/family/social history, medications, and allergies. Opioid use review Opioid Medications (last 90 days) No data to display Anxiety/Depression screening PHQ-9 Score: 3 (Minimal Depression) ASHELY-7 Score: 0 . Recommendation: continuing current treatment plan Cognitive screening Score: 5 Cognitive screening reviewed and No further action needed (score 3-5). Functional Observation Was the patient's Timed Up AND Go test unsteady or >= 12 seconds? No Advance Care Planning Patient did not wish or was not able to name a surrogate decision maker or provide an advance care plan Measurements BP 116/60 Pulse (!) 121 Resp 18 Ht 170.2 cm (5' 7") Wt 130.2 kg (287 lb) SpO2 97% BMI 44.95 kg/m? Vision Screening: Follows with optometry/ophthalmology Assessment/Plan Medicare annual wellness visit, subsequent (Z00.00) - Counseled on healthy diet and regular exercise - Fall avoidance information provided - Personalized prevention plan provided See below Chief Complaint Patient presents with: Medicare Wellness Exam HPI Beverly Givens is a 74 year old female who presents here today for Chronic Medical Conditions. and Medicare Annual Visit. Patient with hx of DM type 2, GERD, Hyperlipidemia, WHIT, Anxiety, depression, morbid obesity, Fibromyalgia, ex-smoker, osteopenia, osteoarthritis as well as those reviewed and addressed below and in ROS Ref Range AND Units 6 mo ago (04/19/24) 1 yr ago (10/17/23) 1 yr ago (04/04/23) 2 yr ago (10/01/22) 2 yr ago (04/10/22) 3 yr ago (09/05/21) 3 yr ago (03/27/21) Hemoglobin A1C 4.3 - 5.6 % 7.0 High 7.8 High CM 6.8 High CM 7.3 High CM 7.2 High CM 7.5 High CM 6.7 High Patient sees Ophthalmology last visit 10/2023. Needs to schedule her appt for this year. Beverly reports a darkening mole on her face, which was initially flesh-colored but has gradually become darker. She also mentions two large moles on her back that have been present for a while. She has not seen a pharm spec and started using Vitality Oils on her face, which she believes may have coincided with the changes in the mole's appearance. She reports weight gain and acknowledges a lack of exercise, despite owning a recumbent exercise bike. Her diet includes quinoa and eggs as primary protein sources, and she admits to overeating fruits and vegetables, considering them "free" foods. She also mentions cravings for potatoes and occasionally forgetting to eat due to being engrossed in activities like reading. Beverly reports that her fibromyalgia symptoms have been exacerbated recently, particularly noting tightness in her back. She also mentions a groin strain that sometimes cramps, which she manages with magnesium supplements and extra-strength Tylenol gel caps in addition to her prescribed meloxicam. She expresses reluctance to receive injections for her low back issues, stating that they provide only temporary relief. She reports occasional wheezing, which she attributes to her inhaler, and a recent episode of pain in her armpit that radiated to her back and shoulder blade, resembling pleuritic pain but resolved by the morning. She also notes occasional swelling in her legs and feet, which she attributes to salt intake and manages with compression stockings. She denies recent fevers, frequent headaches, sudden changes in hearing or vision, issues with her nose or throat, lumps or swelling in her neck, frequent nausea, vomiting, diarrhea, heartburn, hematuria, or dysuria. She also denies seizures, tremors, or syncope. Beverly has not had any surgeries in the past year and is not aware of any new health issues in her blood relatives, although her son was diagnosed with Sjogren's syndrome. She has (more content not included)...[facility]05-09-2025 NoteHNO ID: [id number] Author: NATHALIE LACY RN Service: ? Author Type: Registered Nurse Type: Progress Notes Filed: 09/17/2024 11:54 Note Text: [facility] ENROLLMENT Provider Action / FYI: Declines to take H@H phone number. She has not need for it as she can call the health center with questions. Expressing unhappiness with her lack of pain control and then reports she will see her PCP twice a year and have nothing else to do with [facility]. Attempted to respond with heart but she did not respond. Requests that nobody call her again. Phone disconnected on the other end. Patient identified by name and date of . Discussed care with patient. Program Details Chronic Disease Management Status: Identified Start Date: 09/10/2024 Responsible Staff: Nathalie Lacy RN Support and Services: Assessments No documentation this encounter Interventions No checklist tasks for this episode were completed during this visit, and no tasks for this episode are pending completion. Nathalie Lacy RN September 17, 2024 11:43 [facility]05-09-2025 History of Present illness Narrative* Nathalie Lacy RN - 09/17/2024 11:43 AM EDT [facility] ENROLLMENT Provider Action / FYI: Declines to take H@H phone number. She has not need for it as she can call the health center with questions. Expressing unhappiness with her lack of pain control and then reports she will see her PCP twice a year and have nothing else to do with [facility]. Attempted to respond with heart but she did not respond. Requests that nobody call her again. Phone disconnected on the other end. Patient identified by name and date of . Discussed care with patient. Program Details Chronic Disease Management Status: Identified Start Date: 09/10/2024 Responsible Staff: Nathalie Lacy RN Support and Services: Assessments No documentation this encounter Interventions No checklist tasks for this episode were completed during this visit, and no tasks for this episodeare pending completion. Nathalie Lacy RN September 17, 2024 11:43 AM documented in this encounterDay[facility]25 NotePatient Outreach ([facility]) BEVERLY GIVENS ([id number]) 1950 F NFR Date Time Provider Department 09/17/24 NATHALIE LACYG During your visit today, we recorded the following information about you: Nathalie Lacy RN 09/17/2024 11:54 AM Signed CDM ENROLLMENT Provider Action / FYI: Declines to take H@H phone number. She has not need for it as she can call the health center with questions. Expressing unhappiness with her lack of pain control and then reports she will see her PCP twice a year and have nothing else to do with [facility]. Attempted to respond with heart but she did not respond. Requests that nobody call her again. Phone disconnected on the other end. Patient identified by name and date of . Discussed care with patient. Program Details Chronic Disease Management Status: Identified Start Date: 09/10/2024 Responsible Staff: Nathalie Lacy RN Support and Services: Assessments No documentation this encounter Interventions No checklist tasks for this episode were completed during this visit, and no tasks for this episode are pending completion. Nathalie Lacy RN September 17, 2024 11:43 AM Allergies As of Date: 09/17/2024 Noted Allergy Reaction FAMCICLOVIR 11/25/2011 2 - Rash Comments: large vesicles of fingers (2 fingers) FENTANYL 09/28/2013 1 - Mental Status Change Comments: patches LAMICTAL (LAMOTRIGINE) 07/13/2009 1 - Mental Status Change Comments: mental cloudy LYRICA (PREGABALIN) 07/26/2014 14 - Other: See Comments Comments: Increased depression OXYCONTIN (OXYCODONE HCL) 10/18/2014 14 - Other: See Comments Comments: Anxiety, depression WELLBUTRIN (BUPROPION HCL) 10/06/2014 5 - Intolerance Comments: Mental status change ATARAX (HYDROXYZINE) 04/06/2021 1 - Mental Status Change NIACIN 03/13/2006 14 - Other: See Comments Comments: depression PREVACID (LANSOPRAZOLE) 02/21/2005 16 - Unknown Date Reviewed: 07/03/2024 Reviewed by: Luis M Baez APRN.PERIOPERATIVE ASSISTANT - Fully Assessed Prescriptions as of 09/17/2024 - cyclobenzaprine (FLEXERIL) 10 mg tablet Take 1 tablet by mouth two times a day as needed. - SITagliptin phosphate (JANUVIA) 100 mg tablet Take 1 tablet by mouth once daily. - busPIRone (BUSPAR) 15 mg tablet Take 1 tablet by mouth two times a day. - atorvastatin (LIPITOR) 40 mg tablet Take 1 tablet by mouth once daily. - FLUoxetine (PROZAC) 20 mg capsule Take 2 capsules by mouth once daily. - metFORMIN ER (GLUCOPHAGE XR) 500 mg 24 hr tablet Take 2 tablets by mouth two times a day. - pantoprazole DR (PROTONIX) 20 mg tablet take 1 tablet daily 1/2 hour before breakfast on an empty stomach - glimepiride (AMARYL) 4 mg tablet Take 1 tablet by mouth two times a day with meals. - amLODIPine (NORVASC) 10 mg tablet Take 1 tablet by mouth once daily. - meloxicam (MOBIC) 15 mg tablet Take 1 tablet by mouth once daily. With food. - lisinopril (ZESTRIL) 30 mg tablet Take 1 tablet by mouth once daily. - blood sugar diagnostic (BLOOD GLUCOSE TEST) test strip Test blood sugar(s) 2 times daily. Dx: Other DM Code E11.29 Insulin: No A1c 7.5% 09/05/2021 - albuterol HFA (PROVENTIL HFA, VENTOLIN HFA) 90 mcg/actuation inhaler Inhale 2 Puffs as instructed every 4 hours as needed. - pioglitazone (ACTOS) 45 mg tablet Take 1 tablet by mouth once daily. - fluticasone (FLONASE) 50 mcg/actuation nasal spray Use 2 Sprays in each nostril once daily. Rinse mouth after use. - Lancets lancets Test blood sugar(s) 2 times daily. Dx: Other DM Code 11.29 Insulin: No, A1c 7.5% 09/05/2021 - meclizine (ANTIVERT) 25 mg tab Take 1 tablet by mouth every 6 hours as needed (dizziness). - cholecalciferol (VITAMIN D) 1,000 unit tab tablet Take 1 tablet by mouth once daily. Take 4 tablets daily - Multivitamin capsule Take 1 capsule by mouth once daily. - aspirin, enteric coated (ADULT ASPIRIN REGIMEN) 81 mg EC tablet Take 1 tablet by mouth once daily. - COMPOUNDED PRESCRIPTION Compression stockings, thigh high 15-20mmHg Dx: leg edema Problem List As Of Date 09/17/2024 Noted Resolved Mixed hyperlipidemia [E78.2] 02/12/2005 Recurrent major depression in partial remission*05/30/2005 Generalized anxiety disorder [F41.1] 03/13/2006 Osteopenia, senile [M85.80] 06/07/2008 Fibromyalgia [M79.7] 06/06/2009 WHIT (obstructive sleep apnea) [G47.33] 07/04/2010 Adjustment disorder [F43.20] 10/29/2011 Arthritis of knee, right [M17.11] 12/23/2012 Arthritis of left knee [M17.12] 05/28/2013 Chronic sacroiliac (SI) strain [S39.012A] 08/27/2013 DDD (degenerative disc disease), lumbar [M51.36*07/26/2014 Diabetes mellitus type 2 with ketoacidosis, unc*03/01/2015 05/28/2015 Lumbago [M54.50] 05/19/2015 Type 2 diabetes mellitus with renal complicatio*08/02/2015 Chronic pain syndrome [G89.4] 11/26/2015 Stasis dermatitis of right lower extremity due *04/02/2016 Generalized osteoarthrosis, uns (more content not included)...[facility]03-27-2025 NoteHNO ID: [id number] Author: BRISEIDA IVY MA Service: ? Author Type: Cytogenetic Technician Type: Progress Notes Filed: 08/05/2024 10:46 Note Text: POPULATION HEALTH NAVIGATION OUTREACH Action/FYI P/C to address open care gaps. Patient declined to schedule at this time. Reason for Outreach Care Gap/HCC or Scheduling Wellness Visits Care Gaps due: Follow-up Appointment Breast Cancer Screening Colorectal Cancer Screening Patient Contacted: Spoke to patient/parent/or legal guardian Patient identified by name and : Yes Care Gap/HCC/Scheduling Wellness actions taken: Patient declined: Patient will contact office directly to schedule Navigation Signature: Briseida Ivy MA August 05, 2024 10:46 [facility]03-27-2025 History of Present illness Narrative* Briseida Ivy MA - 08/05/2024 10:24 AM EDT POPULATION HEALTH NAVIGATION OUTREACH Action/FYI P/C to address open care gaps. Patient declined to schedule at this time. Reason for Outreach Care Gap/HCC or Scheduling Wellness Visits Care Gaps due: Follow-up Appointment Breast Cancer Screening Colorectal Cancer Screening Patient Contacted: Spoke to patient/parent/or legal guardian Patient identified by name and : Yes Care Gap/HCC/Scheduling Wellness actions taken: Patient declined: Patient will contact office directly to schedule Navigation Signature: Briseida Ivy MA August 05, 2024 10:46 AM documented in this encounterDayton [facility] Hospital03-27-2025 NotePatient Outreach ([facility]) BEVERLY GIVENS ([id number]) 1950 F NFR Date Time Provider Department 08/05/24 BRISEIDA IVY During your visit today, we recorded the following information about you: Briseida Ivy MA 08/05/2024 10:46 AM Signed POPULATION HEALTH NAVIGATION OUTREACH Action/FYI P/C to address open care gaps. Patient declined to schedule at this time. Reason for Outreach Care Gap/HCC or Scheduling Wellness Visits Care Gaps due: Follow-up Appointment Breast Cancer Screening Colorectal Cancer Screening Patient Contacted: Spoke to patient/parent/or legal guardian Patient identified by name and : Yes Care Gap/HCC/Scheduling Wellness actions taken: Patient declined: Patient will contact office directly to schedule Navigation Signature: Briseida Ivy MA August 05, 2024 10:46 AM Allergies As of Date: 08/05/2024 Noted Allergy Reaction FAMCICLOVIR 11/25/2011 2 - Rash Comments: large vesicles of fingers (2 fingers) FENTANYL 09/28/2013 1 - Mental Status Change Comments: patches LAMICTAL (LAMOTRIGINE) 07/13/2009 1 - Mental Status Change Comments: mental cloudy LYRICA (PREGABALIN) 07/26/2014 14 - Other: See Comments Comments: Increased depression OXYCONTIN (OXYCODONE HCL) 10/18/2014 14 - Other: See Comments Comments: Anxiety, depression WELLBUTRIN (BUPROPION HCL) 10/06/2014 5 - Intolerance Comments: Mental status change ATARAX (HYDROXYZINE) 04/06/2021 1 - Mental Status Change NIACIN 03/13/2006 14 - Other: See Comments Comments: depression PREVACID (LANSOPRAZOLE) 02/21/2005 16 - Unknown Date Reviewed: 07/03/2024 Reviewed by: Luis M Baez APRN.PERIOPERATIVE ASSISTANT - Fully Assessed Reason for Visit: Population Health Navigation Outreach [3910] Cmt: Sophia High Risk- Attempt 2 Prescriptions as of 08/05/2024 - cyclobenzaprine (FLEXERIL) 10 mg tablet Take 1 tablet by mouth two times a day as needed. - SITagliptin phosphate (JANUVIA) 100 mg tablet Take 1 tablet by mouth once daily. - busPIRone (BUSPAR) 15 mg tablet Take 1 tablet by mouth two times a day. - atorvastatin (LIPITOR) 40 mg tablet Take 1 tablet by mouth once daily. - FLUoxetine (PROZAC) 20 mg capsule Take 2 capsules by mouth once daily. - metFORMIN ER (GLUCOPHAGE XR) 500 mg 24 hr tablet Take 2 tablets by mouth two times a day. - pantoprazole DR (PROTONIX) 20 mg tablet take 1 tablet daily 1/2 hour before breakfast on an empty stomach - glimepiride (AMARYL) 4 mg tablet Take 1 tablet by mouth two times a day with meals. - amLODIPine (NORVASC) 10 mg tablet Take 1 tablet by mouth once daily. - meloxicam (MOBIC) 15 mg tablet Take 1 tablet by mouth once daily. With food. - lisinopril (ZESTRIL) 30 mg tablet Take 1 tablet by mouth once daily. - blood sugar diagnostic (BLOOD GLUCOSE TEST) test strip Test blood sugar(s) 2 times daily. Dx: Other DM Code E11.29 Insulin: No A1c 7.5% 09/05/2021 - albuterol HFA (PROVENTIL HFA, VENTOLIN HFA) 90 mcg/actuation inhaler Inhale 2 Puffs as instructed every 4 hours as needed. - pioglitazone (ACTOS) 45 mg tablet Take 1 tablet by mouth once daily. - fluticasone (FLONASE) 50 mcg/actuation nasal spray Use 2 Sprays in each nostril once daily. Rinse mouth after use. - Lancets lancets Test blood sugar(s) 2 times daily. Dx: Other DM Code 11.29 Insulin: No, A1c 7.5% 09/05/2021 - meclizine (ANTIVERT) 25 mg tab Take 1 tablet by mouth every 6 hours as needed (dizziness). - cholecalciferol (VITAMIN D) 1,000 unit tab tablet Take 1 tablet by mouth once daily. Take 4 tablets daily - Multivitamin capsule Take 1 capsule by mouth once daily. - aspirin, enteric coated (ADULT ASPIRIN REGIMEN) 81 mg EC tablet Take 1 tablet by mouth once daily. - COMPOUNDED PRESCRIPTION Compression stockings, thigh high 15-20mmHg Dx: leg edema Problem List As Of Date 08/05/2024 Noted Resolved Mixed hyperlipidemia [E78.2] 02/12/2005 Recurrent major depression in partial remission*05/30/2005 Generalized anxiety disorder [F41.1] 03/13/2006 Osteopenia, senile [M85.80] 06/07/2008 Fibromyalgia [M79.7] 06/06/2009 WHIT (obstructive sleep apnea) [G47.33] 07/04/2010 Adjustment disorder [F43.20] 10/29/2011 Arthritis of knee, right [M17.11] 12/23/2012 Arthritis of left knee [M17.12] 05/28/2013 Chronic sacroiliac (SI) strain [S39.012A] 08/27/2013 DDD (degenerative disc disease), lumbar [M51.36*07/26/2014 Diabetes mellitus type 2 with ketoacidosis, unc*03/01/2015 05/28/2015 Lumbago [M54.50] 05/19/2015 Type 2 diabetes mellitus with renal complicatio*08/02/2015 Chronic pain syndrome [G89.4] 11/26/2015 Stasis dermatitis of right lower extremity due *04/02/2016 Generalized osteoarthrosis, unspecified site [M* 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 Requested Prescriptions Signed Prescriptions Disp Refills cyclobenzaprine (FLEXERIL) 10 mg tablet 60 tablet 2 Sig: Take 1 tablet by mouth two times a day as needed. Authorizing Provider: LUIS M JOHNSON MD [facility]03-20-2025 Miscellaneous Notes* Telephone Encounter - Luis M Johnson MD - 07/29/2024 11:52 AM EDT The following approved medication requests have been transmitted electronically. Requested Prescriptions Signed Prescriptions Disp Refills cyclobenzaprine (FLEXERIL) 10 mg tablet 60 tablet 2 Sig: Take 1 tablet by mouth two times a day as needed. Authorizing Provider: LUIS M JOHNSON MD * Telephone Encounter - Jing Lopez - 07/29/2024 10:45 AM EDT Prescription Refill Information The patient has been identified by name and date of : Yes Caregiver verified no other encounters exist for this prescription request: Yes Caregiver confirmed with patient/requestor that no other refills are due, in the near future, with this provider at this time: Yes The last office visit in the department: 04/19/24 Does the patient have a future office visit with this provider/department: Yes Requested Prescriptions Pending Prescriptions Disp Refills cyclobenzaprine (FLEXERIL) 10 mg tablet 60 tablet 2 Sig: Take 1 tablet by mouth two times a day as needed. Jing Lopez July 29, 2024 10:45 AM documented in this encounterDay[facility]03-20-2025 Telephone encounter Note * Telephone Encounter - Jing Lopez - 07/29/2024 10:45 AM EDT Prescription Refill Information The patient has been identified by name and date of : Yes Caregiver verified no other encounters exist for this prescription request: Yes Caregiver confirmed with patient/requestor that no other refills are due, in the near future, with this provider at this time: Yes The last office visit in the department: 04/19/24 Does the patient have a future office visit with this provider/department: Yes Requested Prescriptions Pending Prescriptions Disp Refills cyclobenzaprine (FLEXERIL) 10 mg tablet 60 tablet 2 Sig: Take 1 tablet by mouth two times a day as needed. Jing Lopez July 29, 2024 10:45 AM [facility]02-22-2025 History of Present illness Narrative* Zackary Pham RT(R) - 07/03/2024 11:20 AM EST Radiology Service Progress Note PATIENT NAME: Beverly Givens DATE OF SERVICE: July 03, 2024 TIME: 11:11 AM PATIENT IDENTITY VERIFICATION COMPLETED USING TWO (2) IDENTIFIERS: Name and Date of confirmedby patient verbally. FALL SCREENING: Has the patient had 2 falls in the last year or 1 fall with injury or currently using an Ambulatory Assistive Device (Walker, Cane, Wheelchair, Crutches, etc.)? Yes, Patient High Riskfor Falls What interventions were put in place to prevent falls during this visit? Offered Assistance with Transfers/Clothing and Instructed Patient to Remain Seated (Not on Exam Table) Until Exam PATIENT GENDER DATA: Assigned female at . status: : No status:NO. PATIENT RELEVANT IMPLANT DATA REVIEWED: Not Applicable PATIENT PRESENTS WITH AN IMPLANTABLE OR ATTACHED TIME LOCK EXPERT: No RADIOLOGY DEPARTMENT: General X-ray: Exam(s) Completed: Chest X-Ray PERIPHERAL IV DATA: Not applicable SIGNED BY: RT Elsy(R) July 03, 2024 11:11 AM documented in this encounterDayton Osteopathic Hospital02-22-2025 NoteHNO ID: [id number] Author: ZACAKRY PHAM RT(R) Service: Radiology Author Type: Technologist Type: Progress Notes Filed: 07/03/2024 11:22 Note Text: Radiology Service Progress Note PATIENT NAME: Beverly Givens DATE OF SERVICE: July 03, 2024 TIME: 11:11 AM PATIENT IDENTITY VERIFICATION COMPLETED USING TWO (2) IDENTIFIERS: Name and Date of confirmed by patient verbally. FALL SCREENING: Has the patient had 2 falls in the last year or 1 fall with injury or currently using an Ambulatory Assistive Device (Walker, Cane, Wheelchair, Crutches, etc.)? Yes, Patient High Risk for Falls What interventions were put in place to prevent falls during this visit? Offered Assistance with Transfers/Clothing and Instructed Patient to Remain Seated (Not on Exam Table) Until Exam PATIENT GENDER DATA: Assigned female at . status: : No status: NO. PATIENT RELEVANT IMPLANT DATA REVIEWED: Not Applicable PATIENT PRESENTS WITH AN IMPLANTABLE OR ATTACHED TIME LOCK EXPERT: No RADIOLOGY DEPARTMENT: General X-ray: Exam(s) Completed: Chest X-Ray PERIPHERAL IV DATA: Not applicable SIGNED BY: RT Elsy(Lurdes) July 03, 2024 11:11 [facility]02-22-2025 NoteHNO ID: [id number] Author: LUIS M BAEZ APRN.PERIOPERATIVE ASSISTANT Service: ? Author Type: Nurse Practitioner Type: Progress Notes Filed: 07/03/2024 12:20 Note Text: Subjective HPI Nontoxic-appearing 74-year-old female presents urgent care chief complaint cough bilateral ear pressure nasal congestion sore throat fatigue. States cough is became productive recently. Presents today for evaluation. OTC medications none. Denies chest pain shortness of breath or pleuritic pain or hemoptysis. No fevers. Past medical history prescription medications allergies reviewed .Patient presents with: Cough: Chest congestion, bilateral ears clogged x1 week, nasal congestion, ST PAST MEDICAL HISTORY Diagnosis Date Adjustment disorder 10/29/2011 Advance directive discussed with patient 10/10/2021 Discussed 10/2021 Arthritis of knee, right 12/23/2012 Arthritis of left knee 05/28/2013 BPV (benign positional vertigo), unspecified laterality 11/22/2019 Chronic pain of both shoulders 10/10/2021 Chronic pain syndrome 11/26/2015 Sees Chronic sacroiliac (SI) strain 08/27/2013 DDD (degenerative disc disease), lumbar 07/26/2014 Ex-smoker 03/17/2019 Quit 09/2018 Fibromyalgia 06/06/2009 Foot callus 11/29/2020 Gastroesophageal reflux disease without esophagitis 10/02/2016 Generalized anxiety disorder 03/13/2006 Generalized osteoarthrosis, unspecified site Glaucoma History of knee replacement procedure of right knee Hx of colonic polyp 08/19/2018 Hypertension, essential 04/12/2022 Low serum vitamin B12 10/10/2021 Lumbago 05/19/2015 Medicare annual wellness visit, subsequent 08/05/2017 last done: 11/22/19 Medical B eligibilty date 06/12/2016 Mixed hyperlipidemia 02/12/2005 WHIT (obstructive sleep apnea) 07/04/2010 Titration done 01/2013 IMPRESSION: 1. At a CPAP setting of 12 cmH2O, the apnea-hypopnea and arousal indices were normalized. At this setting, snoring was eliminated and the oxygen saturation was maintained above 90%. Of note, both REM and supine sleep were present when this setting was tested. 2. Abnormal sleep architecture likely due to respiratory events, PAP titration, first night effect. RECOMMENDATIONS: CPAP 12 cmH20 with humidification. INTERPRETING PHYSICIAN: David Wolef MD PSG done @ [facility] AHI 11. Complete report has been scanned into [facility]. Neurology procedures. Osteopenia 06/07/2008 Osteopenia, senile 06/07/2008 Primary osteoarthritis of right hip 03/28/2023 Recurrent major depression in partial remission (HCC) 05/30/2005 Stasis dermatitis of right lower extremity due to peripheral venous hypertension 04/02/2016 Status post left hip replacement PAST SURGICAL HISTORY Procedure Laterality Date ARTHROSCOPY KNEE DIAGNOSTIC W/WO SYNOVIAL BX SPX Arthroscopy, left knee ARTHRP ACETBLR/PROX FEM PROSTC AGRFT/ALGRFT left Hip replacement, total ARTHRP KNE CONDYLEANDPLATU MEDIALANDLAT COMPARTMENTS 05/31/13 Knee replacement, total bilateral COLONOSCOPY FLX DX W/COLLJ SPEC WHEN PFRMD 03/03/2013 Colonoscopy, repeat 5 yrs DILATION AND CURETTAGE DXAND/THER NONOBSTETRIC Dilation AND curettage ESOPHAGOGASTRODUODENOSCOPY TRANSORAL DIAGNOSTIC 03/03/13 EGD EXC CYST/ABERRANT BREAST TISSUE OPEN 1/> LESION 07/19/09 Exc upper inner left breast SC mass HYSTEROSCOPY, DIAGNOSTIC (SEPARATE Hysteroscopy ALLERGIES Famciclovir, Fentanyl, Lamictal [Lamotrigine], Lyrica [Pregabalin], Oxycontin [Oxycodone Hcl], Wellbutrin [Bupropion Hcl], Atarax [Hydroxyzine], Niacin, and Prevacid [Lansoprazole] MEDICATIONS SITagliptin phosphate (JANUVIA) 100 mg tablet Take 1 tablet by mouth once daily. busPIRone (BUSPAR) 15 mg tablet Take 1 tablet by mouth two times a day. atorvastatin (LIPITOR) 40 mg tablet Take 1 tablet by mouth once daily. FLUoxetine (PROZAC) 20 mg capsule Take 2 capsules by mouth once daily. metFORMIN ER (GLUCOPHAGE XR) 500 mg 24 hr tablet Take 2 tablets by mouth two times a day. pantoprazole DR (PROTONIX) 20 mg tablet take 1 tablet daily 1/2 hour before breakfast on an empty stomach glimepiride (AMARYL) 4 mg tablet Take 1 tablet by mouth two times a day with meals. amLODIPine (NORVASC) 10 mg tablet Take 1 tablet by mouth once daily. meloxicam (MOBIC) 15 mg tablet Take 1 tablet by mouth once daily. With food. lisinopril (ZESTRIL) 30 mg tablet Take 1 tablet by mouth once daily. blood sugar diagnostic (BLOOD GLUCOSE TEST) test strip Test blood sugar(s) 2 times daily. Dx: Other DM Code E11.29 Insulin: No A1c 7.5% 09/05/2021 cyclobenzaprine (FLEXERIL) 10 mg tablet Take 1 tablet by mouth two times a day as needed. albuterol HFA (PROVENTIL HFA, VENTOLIN HFA) 90 mcg/actuation inhaler Inhale 2 Puffs as instructed every 4 hours as needed. pioglitazone (ACTOS) 45 mg tablet Take 1 tablet by mouth once daily. fluticasone (FLONASE) 50 mcg/actuation nasal spray Use 2 Sprays in each nostril once daily. Rinse mouth after use. La (more content not included)...[facility]02-22-2025 History of Present illness Narrative* Luis M Baez APRN.PERIOPERATIVE ASSISTANT - 07/03/2024 11:14 AM EST Subjective HPI Nontoxic-appearing 74-year-old female presents urgent care chief complaint cough bilateral ear pressure nasal congestion sore throat fatigue. States cough is became productive recently. Presents today for evaluation. OTC medications none. Denies chest pain shortness of breath or pleuritic pain or hemoptysis. No fevers. Past medical history prescription medications allergies reviewed .Patient presents with: Cough: Chest congestion, bilateral ears clogged x1 week, nasal congestion, ST PAST MEDICAL HISTORY Diagnosis Date Adjustment disorder 10/29/2011 Advance directive discussed with patient 10/10/2021 Discussed 10/2021 Arthritis of knee, right 12/23/2012 Arthritis of left knee 05/28/2013 BPV (benign positional vertigo), unspecified laterality 11/22/2019 Chronic pain of both shoulders 10/10/2021 Chronic pain syndrome 11/26/2015 Sees Chronic sacroiliac (SI) strain 08/27/2013 DDD (degenerative disc disease), lumbar 07/26/2014 Ex-smoker 03/17/2019 Quit 09/2018 Fibromyalgia 06/06/2009 Foot callus 11/29/2020 Gastroesophageal reflux disease without esophagitis 10/02/2016 Generalized anxiety disorder 03/13/2006 Generalized osteoarthrosis, unspecified site Glaucoma History of knee replacement procedure of right knee Hx of colonic polyp 08/19/2018 Hypertension, essential 04/12/2022 Low serum vitamin B12 10/10/2021 Lumbago 05/19/2015 Medicare annual wellness visit, subsequent 08/05/2017 last done: 11/22/19 Medical B eligibilty date 06/12/2016 Mixed hyperlipidemia 02/12/2005 WHIT (obstructive sleep apnea) 07/04/2010 Titration done 01/2013 IMPRESSION: 1. At a CPAP setting of 12 cmH2O, the apnea- hypopnea and arousal indices were normalized. At this setting, snoring was eliminated and the oxygen saturation was maintained above 90%. Of note, both REM and supine sleep were present when this setting was tested. 2. Abnormal sleep architecture likely due to respiratory events, PAP titration, first night effect. RECOMMENDATIONS: CPAP 12 cmH20 with humidification. INTERPRETING PHYSICIAN: David Wolfe MD PSG done @ [facility] AHI 11. Complete report has been scanned into [facility]. Neurology procedures. Osteopenia 06/07/2008 Osteopenia, senile 06/07/2008 Primary osteoarthritis of right hip 03/28/2023 Recurrent major depression in partial remission (HCC) 05/30/2005 Stasis dermatitis of right lower extremity due to peripheral venous hypertension 04/02/2016 Status post left hip replacement PAST SURGICAL HISTORY Procedure Laterality Date ARTHROSCOPY KNEE DIAGNOSTIC W/WO SYNOVIAL BX SPX Arthroscopy, left knee ARTHRP ACETBLR/PROX FEM PROSTC AGRFT/ALGRFT left Hip replacement, total ARTHRP KNE CONDYLE&PLATU MEDIAL&LAT COMPARTMENTS 05/31/13 Knee replacement, total bilateral COLONOSCOPY FLX DX W/COLLJ SPEC WHEN PFRMD 03/03/2013 Colonoscopy, repeat 5 yrs DILATION & CURETTAGE DX&/THER NONOBSTETRIC Dilation & curettage ESOPHAGOGASTRODUODENOSCOPY TRANSORAL DIAGNOSTIC 03/03/13 EGD EXC CYST/ABERRANT BREAST TISSUE OPEN 1/> LESION 07/19/09 Exc upper inner left breast SC mass HYSTEROSCOPY, DIAGNOSTIC (SEPARATE Hysteroscopy ALLERGIES Famciclovir, Fentanyl, Lamictal [Lamotrigine], Lyrica [Pregabalin], Oxycontin [Oxycodone Hcl], Wellbutrin [Bupropion Hcl], Atarax [Hydroxyzine], Niacin, and Prevacid [Lansoprazole] MEDICATIONS SITagliptin phosphate (JANUVIA) 100 mg tablet Take 1 tablet by mouth once daily. busPIRone (BUSPAR) 15 mg tablet Take 1 tablet by mouth two times a day. atorvastatin (LIPITOR) 40 mg tablet Take 1 tablet by mouth once daily. FLUoxetine (PROZAC) 20 mg capsule Take 2 capsules by mouth once daily. metFORMIN ER (GLUCOPHAGE XR) 500 mg 24 hr tablet Take 2 tablets by mouth two times a day. pantoprazole DR (PROTONIX) 20 mg tablet take 1 tablet daily 1/2 hour before breakfast on an empty stomach glimepiride (AMARYL) 4 mg tablet Take 1 tablet by mouth two times a day with meals. amLODIPine (NORVASC) 10 mg tablet Take 1 tablet by mouth once daily. meloxicam (MOBIC) 15 mg tablet Take 1 tablet by mouth once daily. With food. lisinopril (ZESTRIL) 30 mg tablet Take 1 tablet by mouth once daily. blood sugar diagnostic (BLOOD GLUCOSE TEST) test strip Test blood sugar(s) 2 times daily. Dx: OtherDM Code E11.29 Insulin: No A1c 7.5% 09/05/2021 cyclobenzaprine (FLEXERIL) 10 mg tablet Take 1 tablet by mouth two times a day as needed. albuterol HFA (PROVENTIL HFA, VENTOLIN HFA) 90 mcg/actuation inhaler Inhale 2 Puffs as instructed every 4 hours as needed. pioglitazone (ACTOS) 45 mg tablet Take 1 tablet by mouth once daily. fluticasone (FLONASE) 50 mcg/actuation nasal spray Use 2 Sprays in each nostril once daily. Rinse mouth after use. Lancets lancets Test blood sugar(s) 2 times daily. Dx: Other DM Code 11.29 Insulin: No, A1c 7.5% 09/05/2021 meclizine (ANTIVERT) 25 mg tab Take 1 tablet by mouth every 6 hours as needed (dizziness). cholecalciferol (VITAMIN D) 1,000 unit tab tablet Take 1 tablet by mouth once daily. Take 4 tabletsdaily Multivitamin capsule Take 1 capsule by mouth once daily. aspirin, enteric coated (ADULT ASPIRIN REGIMEN) 81 mg EC tablet Take 1 tablet by mouth once daily. 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 HENT: Positive for congestion, sinus pain and sore throat. Negative for ear discharge and ear pain. Eyes: Negative for blurred vision, pain, discharge and redness. Respiratory: Positive for cough. Negative for hemoptysis, sputum production, shortness of breath, wheezing and stridor. Cardiovascular: Negative for chest pain. Gastrointestinal: Negative for abdominal pain, diarrhea, nausea and vomiting. Musculoskeletal: Negative for myalgias. Skin: Negative for itching and rash. Neurological: Negative for dizziness and headaches. Objective Physical Exam Constitutional: General: She is not in acute distress. Appearance: She is not diaphoretic. HENT: Head: Normocephalic. Jaw: No trismus, tenderness, swelling or pain on movement. Nose: Congestion present. Right Sinus: Maxillary sinus tenderness present. Left Sinus: Maxillary sinus tenderness present. Mouth/Throat: Mouth: Mucous membranes are moist. Pharynx: Oropharynx is clear. Uvula midline. No pharyngeal swelling, oropharyngeal exudate, posterior oropharyngeal erythema or uvula swelling. Eyes: Conjunctiva/sclera: Conjunctivae normal. Pupils: Pupils are equal, round, and reactive to light. Cardiovascular: Rate and Rhythm: Normal rate and regular rhythm. Heart sounds: Normal heart sounds. Pulmonary: Effort: Pulmonary effort is normal. No tachypnea, accessory muscle usage or respiratory distress. Breath sounds: Normal breath sounds. No stridor. No wheezing, rhonchi or rales. Abdominal: General: There is no distension. Palpations: Abdomen is soft. Tenderness: There is no abdominal tenderness. There is no guarding or rebound. Musculoskeletal: Cervical back: Normal range of motion and neck supple. No edema, erythema, rigidity or tenderness. No pain with movement. Normal range of motion. Lymphadenopathy: Cervical: No cervical adenopathy. Skin: General: Skin is warm and dry. Neurological: Mental Status: She is alert and oriented to person, place, and time. ASSESSMENT/PLAN: 1. Sore throat - ICD9: 462, ICD10: J02.9 (primary diagnosis) - STREP A MOLECULAR (POC) 2. Acute cough - ICD9: 786.2, ICD10: R05.1 - XR CHEST 2V FRONTAL/LAT 3. Sinobronchitis - ICD9: 473.9, 490, ICD10: J32.9, J40 Impression IMPRESSION: No acute radiographic abnormality. No acute findings noted on chest x-ray. Strep test negative. Diagnosed with sinobronchitis. Placed on doxycycline. Patient was educated on supportive therapies. Patient will follow up with primary care provider 3 to 5 days. Patient was instructed to immediately proceed to emergency room for any new, worsening, or symptoms lasting longer than anticipated. The patient's clinical presentation is otherwise unremarkable at this time. Based on exam and clinical finding, the patient is stable for discharge. Plan of care was discussed with patient. Patient verbalizes understanding and agrees to plan of care. This note was generated using [employer] software. It may contain errors in wording, punctuation, or spelling. Luis M Baez APRN.PERIOPERATIVE ASSISTANT documented in this encounterDay[facility]02-[facility]25 NoteHNO ID: [id number] Author: BRISEIDA IVY MA Service: ? Author Type: Cytogenetic Technician Type: Progress Notes Filed: 07/01/2024 12:29 Note Text: POPULATION HEALTH NAVIGATION OUTREACH Action/FYI P/C to address open care gaps,no answer. Left message for patient to return call. My chart message sent. Reason for Outreach Care Gap/HCC or Scheduling Wellness Visits Care Gaps due: Follow-up Appointment Breast Cancer Screening Colorectal Cancer Screening Patient Contacted: Unable or unnecessary to reach patient: Left message [email or web address] message sent Navigation Signature: Briseida Ivy MA July 01, 2024 12:29 [facility]02[facility]20[facility]25 History of Present illness Narrative* Briseida Ivy MA - 07/01/2024 12:27 PM EST POPULATION HEALTH NAVIGATION OUTREACH Action/FYI P/C to address open care gaps,no answer. Left message for patient to return call. My chart message sent. Reason for Outreach Care Gap/HCC or Scheduling Wellness Visits Care Gaps due: Follow-up Appointment Breast Cancer Screening Colorectal Cancer Screening Patient Contacted: Unable or unnecessary to reach patient: Left message [email or web address] message sent Navigation Signature: Briseida Ivy MA July 01, 2024 12:29 PM documented in this encounterDayton [facility]02-20-2025 NotePatient Outreach (NETNAV) BEVERLY GIVENS ([id number]) 1950 F NFR Date Time Provider Department 07/01/24 BRISEIDA IVY During your visit today, we recorded the following information about you: Briseida Ivy MA 07/01/2024 12:29 PM Signed POPULATION HEALTH NAVIGATION OUTREACH Action/FYI P/C to address open care gaps,no answer. Left message for patient to return call. My chart message sent. Reason for Outreach Care Gap/HCC or Scheduling Wellness Visits Care Gaps due: Follow-up Appointment Breast Cancer Screening Colorectal Cancer Screening Patient Contacted: Unable or unnecessary to reach patient: Left message [email or web address] message sent Navigation Signature: Briseida Ivy MA July 01, 2024 12:29 PM Allergies As of Date: 07/01/2024 Noted Allergy Reaction FAMCICLOVIR 11/25/2011 2 - Rash Comments: large vesicles of fingers (2 fingers) FENTANYL 09/28/2013 1 - Mental Status Change Comments: patches LAMICTAL (LAMOTRIGINE) 07/13/2009 1 - Mental Status Change Comments: mental cloudy LYRICA (PREGABALIN) 07/26/2014 14 - Other: See Comments Comments: Increased depression OXYCONTIN (OXYCODONE HCL) 10/18/2014 14 - Other: See Comments Comments: Anxiety, depression WELLBUTRIN (BUPROPION HCL) 10/06/2014 5 - Intolerance Comments: Mental status change ATARAX (HYDROXYZINE) 04/06/2021 1 - Mental Status Change NIACIN 03/13/2006 14 - Other: See Comments Comments: depression PREVACID (LANSOPRAZOLE) 02/21/2005 16 - Unknown Date Reviewed: 04/19/2024 Reviewed by: Nereyda Sullivan MA - Fully Assessed Reason for Visit: Population Health Navigation Outreach [3910] Cmt: Wilfridtna High Risk- Attempt 1 Prescriptions as of 07/01/2024 - SITagliptin phosphate (JANUVIA) 100 mg tablet Take 1 tablet by mouth once daily. - busPIRone (BUSPAR) 15 mg tablet Take 1 tablet by mouth two times a day. - atorvastatin (LIPITOR) 40 mg tablet Take 1 tablet by mouth once daily. - FLUoxetine (PROZAC) 20 mg capsule Take 2 capsules by mouth once daily. - metFORMIN ER (GLUCOPHAGE XR) 500 mg 24 hr tablet Take 2 tablets by mouth two times a day. - pantoprazole DR (PROTONIX) 20 mg tablet take 1 tablet daily 1/2 hour before breakfast on an empty stomach - glimepiride (AMARYL) 4 mg tablet Take 1 tablet by mouth two times a day with meals. - amLODIPine (NORVASC) 10 mg tablet Take 1 tablet by mouth once daily. - meloxicam (MOBIC) 15 mg tablet Take 1 tablet by mouth once daily. With food. - lisinopril (ZESTRIL) 30 mg tablet Take 1 tablet by mouth once daily. - blood sugar diagnostic (BLOOD GLUCOSE TEST) test strip Test blood sugar(s) 2 times daily. Dx: Other DM Code E11.29 Insulin: No A1c 7.5% 09/05/2021 - cyclobenzaprine (FLEXERIL) 10 mg tablet Take 1 tablet by mouth two times a day as needed. - albuterol HFA (PROVENTIL HFA, VENTOLIN HFA) 90 mcg/actuation inhaler Inhale 2 Puffs as instructed every 4 hours as needed. - pioglitazone (ACTOS) 45 mg tablet Take 1 tablet by mouth once daily. - fluticasone (FLONASE) 50 mcg/actuation nasal spray Use 2 Sprays in each nostril once daily. Rinse mouth after use. - Lancets lancets Test blood sugar(s) 2 times daily. Dx: Other DM Code 11.29 Insulin: No, A1c 7.5% 09/05/2021 - meclizine (ANTIVERT) 25 mg tab Take 1 tablet by mouth every 6 hours as needed (dizziness). - cholecalciferol (VITAMIN D) 1,000 unit tab tablet Take 1 tablet by mouth once daily. Take 4 tablets daily - Multivitamin capsule Take 1 capsule by mouth once daily. - aspirin, enteric coated (ADULT ASPIRIN REGIMEN) 81 mg EC tablet Take 1 tablet by mouth once daily. - COMPOUNDED PRESCRIPTION Compression stockings, thigh high 15-20mmHg Dx: leg edema Meds Comments as of 08/19/2018: Multivitamin 8 hour arthritis pain relief Ty-s - Stress management Probiotic 50 billion Problem List As Of Date 07/01/2024 Noted Resolved Mixed hyperlipidemia [E78.2] 02/12/2005 Recurrent major depression in partial remission*05/30/2005 Generalized anxiety disorder [F41.1] 03/13/2006 Osteopenia, senile [M85.80] 06/07/2008 Fibromyalgia [M79.7] 06/06/2009 WHIT (obstructive sleep apnea) [G47.33] 07/04/2010 Adjustment disorder [F43.20] 10/29/2011 Arthritis of knee, right [M17.11] 12/23/2012 Arthritis of left knee [M17.12] 05/28/2013 Chronic sacroiliac (SI) strain [S39.012A] 08/27/2013 DDD (degenerative disc disease), lumbar [M51.36*07/26/2014 Diabetes mellitus type 2 with ketoacidosis, unc*03/01/2015 05/28/2015 Lumbago [M54.50] 05/19/2015 Type 2 diabetes mellitus with renal complicatio*08/02/2015 Chronic pain syndrome [G89.4] 11/26/2015 Stasis dermatitis of right lower extremity due *04/02/2016 Generalized osteoarthrosis, unspecified site [M* 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 [facility]12-13-2024 Telephone encounter Note* Telephone Encounter - Luis M Johnson MD - 04/23/2024 3:12 PM EST The following approved medication requests have been transmitted electronically. Requested Prescriptions Signed Prescriptions Disp Refills SITagliptin phosphate (JANUVIA) 100 mg tablet 90 tablet 1 Sig: Take 1 tablet by mouth once daily. Authorizing Provider: LUIS M JOHNSON busPIRone (BUSPAR) 15 mg tablet 180 tablet 1 Sig: Take 1 tablet by mouth two times a day. Authorizing Provider: LUIS M JOHNSON atorvastatin (LIPITOR) 40 mg tablet 90 tablet 1 Sig: Take 1 tablet by mouth once daily. Authorizing Provider: LUIS M JOHNSON FLUoxetine (PROZAC) 20 mg capsule 180 capsule 1 Sig: Take 2 capsules by mouth once daily. Authorizing Provider: LUIS M JOHNSON metFORMIN ER (GLUCOPHAGE XR) 500 mg 24 hr tablet 360 tablet 1 Sig: Take 2 tablets by mouth two times a day. Authorizing Provider: LUIS M JOHNSON pantoprazole DR (PROTONIX) 20 mg tablet 90 tablet 1 Sig: take 1 tablet daily 1/2 hour before breakfast on an empty stomach Authorizing Provider: LUIS M JOHNSON glimepiride (AMARYL) 4 mg tablet 180 tablet 1 Sig: Take 1 tablet by mouth two times a day with meals. Authorizing Provider: LUIS M JOHNSON MD [facility]12-13-[facility] Miscellaneous Notes* Telephone Encounter - Luis M Johnson MD - 04/23/2024 3:12 PM EST The following approved medication requests have been transmitted electronically. Requested Prescriptions Signed Prescriptions Disp Refills SITagliptin phosphate (JANUVIA) 100 mg tablet 90 tablet 1 Sig: Take 1 tablet by mouth once daily. Authorizing Provider: LUIS M JOHNSON busPIRone (BUSPAR) 15 mg tablet 180 tablet 1 Sig: Take 1 tablet by mouth two times a day. Authorizing Provider: LUIS M JOHNSON atorvastatin (LIPITOR) 40 mg tablet 90 tablet 1 Sig: Take 1 tablet by mouth once daily. Authorizing Provider: LUIS M JOHNSON FLUoxetine (PROZAC) 20 mg capsule 180 capsule 1 Sig: Take 2 capsules by mouth once daily. Authorizing Provider: LUIS M JOHNSON metFORMIN ER (GLUCOPHAGE XR) 500 mg 24 hr tablet 360 tablet 1 Sig: Take 2 tablets by mouth two times a day. Authorizing Provider: LUIS M JOHNSON pantoprazole DR (PROTONIX) 20 mg tablet 90 tablet 1 Sig: take 1 tablet daily 1/2 hour before breakfast on an empty stomach Authorizing Provider: LUIS M JOHNSON glimepiride (AMARYL) 4 mg tablet 180 tablet 1 Sig: Take 1 tablet by mouth two times a day with meals. Authorizing Provider: LUIS M JOHNSON MD * Telephone Encounter - Imelda Castillo MA - 04/23/2024 3:07 PM EST Prescription Refill Information The patient has been identified by name and date of : Yes Caregiver verified no other encounters exist for this prescription request: Yes Caregiver confirmed with patient/requestor that no other refills are due, in the near future, with this provider at this time: No The last office visit in the department: 04/19/24 Does the patient have a future office visit with this provider/department: Yes Requested Prescriptions Pending Prescriptions Disp Refills SITagliptin phosphate (JANUVIA) 100 mg tablet 90 tablet 1 Sig: Take 1 tablet by mouth once daily. busPIRone (BUSPAR) 15 mg tablet 180 tablet 1 Sig: Take 1 tablet by mouth two times a day. atorvastatin (LIPITOR) 40 mg tablet 90 tablet 1 Sig: Take 1 tablet by mouth once daily. FLUoxetine (PROZAC) 20 mg capsule 180 capsule 1 Sig: Take 2 capsules by mouth once daily. metFORMIN ER (GLUCOPHAGE XR) 500 mg 24 hr tablet 360 tablet 1 Sig: Take 2 tablets by mouth two times a day. pantoprazole DR (PROTONIX) 20 mg tablet 90 tablet 1 Sig: take 1 tablet daily 1/2 hour before breakfast on an empty stomach glimepiride (AMARYL) 4 mg tablet 180 tablet 0 Sig: Take 1 tablet by mouth two times a day with meals. Imelda Castillo MA April 23, 2024 3:07 PM * Telephone Encounter - Alicia Diaz - 04/23/2024 2:53 PM EST Prescription Refill Information The patient has been identified by name and date of : Yes Caregiver verified no other encounters exist for this prescription request: Yes Caregiver confirmed with patient/requestor that no other refills are due, in the near future, with this provider at this time: Yes The last office visit in the department: 12 Does the patient have a future office visit with this provider/department: Yes Requested Prescriptions Pending Prescriptions Disp Refills SITagliptin phosphate (JANUVIA) 100 mg tablet 90 tablet 1 Sig: Take 1 tablet by mouth once daily. busPIRone (BUSPAR) 15 mg tablet 180 tablet 1 Sig: Take 1 tablet by mouth two times a day. atorvastatin (LIPITOR) 40 mg tablet 90 tablet 1 Sig: Take 1 tablet by mouth once daily. FLUoxetine (PROZAC) 20 mg capsule 180 capsule 1 Sig: Take 2 capsules by mouth once daily. metFORMIN ER (GLUCOPHAGE XR) 500 mg 24 hr tablet 360 tablet 1 Sig: Take 2 tablets by mouth two times a day. pantoprazole DR (PROTONIX) 20 mg tablet 90 tablet 1 Sig: take 1 tablet daily 1/2 hour before breakfast on an empty stomach glimepiride (AMARYL) 4 mg tablet 180 tablet 0 Sig: Take 1 tablet by mouth two times a day with meals. Alicia Diaz April 23, 2024 2:55 PM documented in this encounterDay[facility]12-13-2024 Telephone encounter Note * Telephone Encounter - Imelda Castillo MA - 04/23/2024 3:07 PM EST Prescription Refill Information The patient has been identified by name and date of : Yes Caregiver verified no other encounters exist for this prescription request: Yes Caregiver confirmed with patient/requestor that no other refills are due, in the near future, with this provider at this time: No The last office visit in the department: 04/19/24 Does the patient have a future office visit with this provider/department: Yes Requested Prescriptions Pending Prescriptions Disp Refills SITagliptin phosphate (JANUVIA) 100 mg tablet 90 tablet 1 Sig: Take 1 tablet by mouth once daily. busPIRone (BUSPAR) 15 mg tablet 180 tablet 1 Sig: Take 1 tablet by mouth two times a day. atorvastatin (LIPITOR) 40 mg tablet 90 tablet 1 Sig: Take 1 tablet by mouth once daily. FLUoxetine (PROZAC) 20 mg capsule 180 capsule 1 Sig: Take 2 capsules by mouth once daily. metFORMIN ER (GLUCOPHAGE XR) 500 mg 24 hr tablet 360 tablet 1 Sig: Take 2 tablets by mouth two times a day. pantoprazole DR (PROTONIX) 20 mg tablet 90 tablet 1 Sig: take 1 tablet daily 1/2 hour before breakfast on an empty stomach glimepiride (AMARYL) 4 mg tablet 180 tablet 0 Sig: Take 1 tablet by mouth two times a day with meals. Imelda Castillo MA April 23, 2024 3:07 PM [facility]12-13-20[facility] Telephone encounter Note* Telephone Encounter - Aliica Diaz - 04/23/2024 2:53 PM EST Prescription Refill Information The patient has been identified by name and date of : Yes Caregiver verified no other encounters exist for this prescription request: Yes Caregiver confirmed with patient/requestor that no other refills are due, in the near future, with this provider at this time: Yes The last office visit in the department: 12 Does the patient have a future office visit with this provider/department: Yes Requested Prescriptions Pending Prescriptions Disp Refills SITagliptin phosphate (JANUVIA) 100 mg tablet 90 tablet 1 Sig: Take 1 tablet by mouth once daily. busPIRone (BUSPAR) 15 mg tablet 180 tablet 1 Sig: Take 1 tablet by mouth two times a day. atorvastatin (LIPITOR) 40 mg tablet 90 tablet 1 Sig: Take 1 tablet by mouth once daily. FLUoxetine (PROZAC) 20 mg capsule 180 capsule 1 Sig: Take 2 capsules by mouth once daily. metFORMIN ER (GLUCOPHAGE XR) 500 mg 24 hr tablet 360 tablet 1 Sig: Take 2 tablets by mouth two times a day. pantoprazole DR (PROTONIX) 20 mg tablet 90 tablet 1 Sig: take 1 tablet daily 1/2 hour before breakfast on an empty stomach glimepiride (AMARYL) 4 mg tablet 180 tablet 0 Sig: Take 1 tablet by mouth two times a day with meals. Alicia Diaz April 23, 2024 2:55 PM [facility]12-10-2024 Miscellaneous Notes* Telephone Encounter - Nereyda Sullivan MA - 04/20/2024 8:49 AM EST Pt notified and verbalized understanding Nereyda Sullivan MA * Telephone Encounter - Teddy Cox APRN.CNP - 04/20/2024 7:57 AM EST Please let patient know her hgba1c has improved and her lipids are stable. documented in this encounterDay[facility]12-10-2024 Telephone encounter Note * Telephone Encounter - Nereyda Sullivan MA - 04/20/2024 8:49 AM EST Pt notified and verbalized understanding Nereyda Sullivan MA [facility]12-10-2024 Telephone encounter Note* Telephone Encounter - Teddy Cox APRN.CNP - 04/20/2024 7:57 AM EST Please let patient know her hgba1c has improved and her lipids are stable. [facility]12-09-2024 NoteHNO ID: [id number] Author: TEDYD COX APRN.CNP Service: ? Author Type: Nurse Practitioner Type: Progress Notes Filed: 04/19/2024 13:21 Note Text: Chief Complaint Patient presents with: 6 Month Exam HPI Beverly Givens is a 73 year old female who presents here today for Above Complaints.. Patient presents for routine follow up. Patient reports she would like a referral for a second opinion regarding her hip pain. Was seen in March 2023 and told she had bursitis but pain has continued. Not responsive to OTC treatment. Occasionally improved with stretching but never goes away completely. Past medical history, appointments, medications, allergies reviewed. Previous Medical History PAST MEDICAL HISTORY Diagnosis Date Adjustment disorder 10/29/2011 Advance directive discussed with patient 10/10/2021 Discussed 10/2021 Arthritis of knee, right 12/23/2012 Arthritis of left knee 05/28/2013 BPV (benign positional vertigo), unspecified laterality 11/22/2019 Chronic pain of both shoulders 10/10/2021 Chronic pain syndrome 11/26/2015 Sees Chronic sacroiliac (SI) strain 08/27/2013 DDD (degenerative disc disease), lumbar 07/26/2014 Ex-smoker 03/17/2019 Quit 09/2018 Fibromyalgia 06/06/2009 Foot callus 11/29/2020 Gastroesophageal reflux disease without esophagitis 10/02/2016 Generalized anxiety disorder 03/13/2006 Generalized osteoarthrosis, unspecified site Glaucoma History of knee replacement procedure of right knee Hx of colonic polyp 08/19/2018 Hypertension, essential 04/12/2022 Low serum vitamin B12 10/10/2021 Lumbago 05/19/2015 Medicare annual wellness visit, subsequent 08/05/2017 last done: 11/22/19 Medical B eligibilty date 06/12/2016 Mixed hyperlipidemia 02/12/2005 WHIT (obstructive sleep apnea) 07/04/2010 Titration done 01/2013 IMPRESSION: 1. At a CPAP setting of 12 cmH2O, the apnea-hypopnea and arousal indices were normalized. At this setting, snoring was eliminated and the oxygen saturation was maintained above 90%. Of note, both REM and supine sleep were present when this setting was tested. 2. Abnormal sleep architecture likely due to respiratory events, PAP titration, first night effect. RECOMMENDATIONS: CPAP 12 cmH20 with humidification. INTERPRETING PHYSICIAN: David Wolfe MD PSG done @ [facility] 11. Complete report has been scanned into [id number]. Neurology procedures. Osteopenia 06/07/2008 Osteopenia, senile 06/07/2008 Primary osteoarthritis of right hip 03/28/2023 Recurrent major depression in partial remission (HCC) 05/30/2005 Stasis dermatitis of right lower extremity due to peripheral venous hypertension 04/02/2016 Status post left hip replacement Previous Surgical History PAST SURGICAL HISTORY Procedure Laterality Date ARTHROSCOPY KNEE DIAGNOSTIC W/WO SYNOVIAL BX SPX Arthroscopy, left knee ARTHRP ACETBLR/PROX FEM PROSTC AGRFT/ALGRFT left Hip replacement, total ARTHRP KNE CONDYLEANDPLATU MEDIALANDLAT COMPARTMENTS 05/31/13 Knee replacement, total bilateral COLONOSCOPY FLX DX W/COLLJ SPEC WHEN PFRMD 03/03/2013 Colonoscopy, repeat 5 yrs DILATION AND CURETTAGE DXAND/THER NONOBSTETRIC Dilation AND curettage ESOPHAGOGASTRODUODENOSCOPY TRANSORAL DIAGNOSTIC 03/03/13 EGD EXC CYST/ABERRANT BREAST TISSUE OPEN 1/> LESION 07/19/09 Exc upper inner left breast SC mass HYSTEROSCOPY, DIAGNOSTIC (SEPARATE Hysteroscopy Family History FAMILY HISTORY Problem Relation Age of Onset Osteoporosis Mother Cancer Mother skin Colon Cancer Mother 88 Diabetes Father Cancer Sister breast other (Other) Other fibromyalgia Patient Allergies ALLERGIES Allergen Reactions Famciclovir Rash large vesicles of fingers (2 fingers) Fentanyl Mental Status Change patches Lamictal [Lamotrigi* Mental Status Change mental cloudy Lyrica [Pregabalin] Other: See Comments Increased depression Oxycontin [Oxycodon* Other: See Comments Anxiety, depression Wellbutrin [Bupropi* Intolerance Mental status change Atarax [Hydroxyzine] Mental Status Change Niacin Other: See Comments depression Prevacid [Lansopraz* Unknown Current Medications Current Outpatient Medications on File Prior to Visit Medication Sig amLODIPine (NORVASC) 10 mg tablet Take 1 tablet by mouth once daily. glimepiride (AMARYL) 4 mg tablet Take 1 tablet by mouth two times a day with meals. meloxicam (MOBIC) 15 mg tablet Take 1 tablet by mouth once daily. With food. lisinopril (ZESTRIL) 30 mg tablet Take 1 tablet by mouth once daily. blood sugar diagnostic (BLOOD GLUCOSE TEST) test strip Test blood sugar(s) 2 times daily. Dx: Other DM Code E11.29 Insulin: No A1c 7.5% 09/05/2021 cyclobenzaprine (FLEXERIL) 10 mg tablet Take 1 tablet by mouth two times a day as needed. metFORMIN ER (GLUCOPHAGE XR) 500 mg 24 hr tablet Take 2 tablets by mouth two times a day. pantoprazole DR (PROTONIX) 20 mg tablet take (more content not included)... [facility]12-09-2024 History of Present illness Narrative* Teddy CoxLENKA.PERIOPERATIVE ASSISTANT - 04/19/2024 1:04 PM EST Images from the original note were not included. Chief Complaint Patient presents with: 6 Month Exam HPI Beverly Givens is a 73 year old female who presents here today for Above Complaints.. Patient presents for routine follow up. Patient reports she would like a referral for a second opinion regarding her hip pain. Was seen in March 2023 and told she had bursitis but pain has continued. Not responsive to OTC treatment. Occasionally improved with stretching but never goes away completely. Past medical history, appointments, medications, allergies reviewed. Previous Medical History PAST MEDICAL HISTORY Diagnosis Date Adjustment disorder 10/29/2011 Advance directive discussed with patient 10/10/2021 Discussed 10/2021 Arthritis of knee, right 12/23/2012 Arthritis of left knee 05/28/2013 BPV (benign positional vertigo), unspecified laterality 11/22/2019 Chronic pain of both shoulders 10/10/2021 Chronic pain syndrome 11/26/2015 Sees Chronic sacroiliac (SI) strain 08/27/2013 DDD (degenerative disc disease), lumbar 07/26/2014 Ex-smoker 03/17/2019 Quit 09/2018 Fibromyalgia 06/06/2009 Foot callus 11/29/2020 Gastroesophageal reflux disease without esophagitis 10/02/2016 Generalized anxiety disorder 03/13/2006 Generalized osteoarthrosis, unspecified site Glaucoma History of knee replacement procedure of right knee Hx of colonic polyp 08/19/2018 Hypertension, essential 04/12/2022 Low serum vitamin B12 10/10/2021 Lumbago 05/19/2015 Medicare annual wellness visit, subsequent 08/05/2017 last done: 11/22/19 Medical B eligibilty date 06/12/2016 Mixed hyperlipidemia 02/12/2005 WHIT (obstructive sleep apnea) 07/04/2010 Titration done 01/2013 IMPRESSION: 1. At a CPAP setting of 12 cmH2O, the apnea- hypopnea and arousal indices were normalized. At this setting, snoring was eliminated and the oxygen saturation was maintained above 90%. Of note, both REM and supine sleep were present when this setting was tested. 2. Abnormal sleep architecture likely due to respiratory events, PAP titration, first night effect. RECOMMENDATIONS: CPAP 12 cmH20 with humidification. INTERPRETING PHYSICIAN: David Wolfe MD PSG done @ [facility]. Complete report has been scanned into [id number]. Neurology procedures. Osteopenia 06/07/2008 Osteopenia, senile 06/07/2008 Primary osteoarthritis of right hip 03/28/2023 Recurrent major depression in partial remission (HCC) 05/30/2005 Stasis dermatitis of right lower extremity due to peripheral venous hypertension 04/02/2016 Status post left hip replacement Previous Surgical History PAST SURGICAL HISTORY Procedure Laterality Date ARTHROSCOPY KNEE DIAGNOSTIC W/WO SYNOVIAL BX SPX Arthroscopy, left knee ARTHRP ACETBLR/PROX FEM PROSTC AGRFT/ALGRFT left Hip replacement, total ARTHRP KNE CONDYLE&PLATU MEDIAL&LAT COMPARTMENTS 05/31/13 Knee replacement, total bilateral COLONOSCOPY FLX DX W/COLLJ SPEC WHEN PFRMD 03/03/2013 Colonoscopy, repeat 5 yrs DILATION & CURETTAGE DX&/THER NONOBSTETRIC Dilation & curettage ESOPHAGOGASTRODUODENOSCOPY TRANSORAL DIAGNOSTIC 03/03/13 EGD EXC CYST/ABERRANT BREAST TISSUE OPEN / LESION 07/19/09 Exc upper inner left breast SC mass HYSTEROSCOPY, DIAGNOSTIC (SEPARATE Hysteroscopy Family History FAMILY HISTORY Problem Relation Age of Onset Osteoporosis Mother Cancer Mother skin Colon Cancer Mother 88 Diabetes Father Cancer Sister breast other (Other) Other fibromyalgia Patient Allergies ALLERGIES Allergen Reactions Famciclovir Rash large vesicles of fingers (2 fingers) Fentanyl Mental Status Change patches Lamictal [Lamotrigi* Mental Status Change mental cloudy Lyrica [Pregabalin] Other: See Comments Increased depression Oxycontin [Oxycodon* Other: See Comments Anxiety, depression Wellbutrin [Bupropi* Intolerance Mental status change Atarax [Hydroxyzine] Mental Status Change Niacin Other: See Comments depression Prevacid [Lansopraz* Unknown Current Medications Current Outpatient Medications on File Prior to Visit Medication Sig amLODIPine (NORVASC) 10 mg tablet Take 1 tablet by mouth once daily. glimepiride (AMARYL) 4 mg tablet Take 1 tablet by mouth two times a day with meals. meloxicam (MOBIC) 15 mg tablet Take 1 tablet by mouth once daily. With food. lisinopril (ZESTRIL) 30 mg tablet Take 1 tablet by mouth once daily. blood sugar diagnostic (BLOOD GLUCOSE TEST) test strip Test blood sugar(s) 2 times daily. Dx: OtherDM Code E11.29 Insulin: No A1c 7.5% 09/05/2021 cyclobenzaprine (FLEXERIL) 10 mg tablet Take 1 tablet by mouth two times a day as needed. metFORMIN ER (GLUCOPHAGE XR) 500 mg 24 hr tablet Take 2 tablets by mouth two times a day. pantoprazole DR (PROTONIX) 20 mg tablet take 1 tablet daily 1/2 hour before breakfast on an empty stomach SITagliptin phosphate (JANUVIA) 100 mg tablet Take 1 tablet by mouth once daily. albuterol HFA (PROVENTIL HFA, VENTOLIN HFA) 90 mcg/actuation inhaler Inhale 2 Puffs as instructed every 4 hours as needed. atorvastatin (LIPITOR) 40 mg tablet Take 1 tablet by mouth once daily. busPIRone (BUSPAR) 15 mg tablet Take 1 tablet by mouth two times a day. FLUoxetine (PROZAC) 20 mg capsule Take 2 capsules by mouth once daily. pioglitazone (ACTOS) 45 mg tablet Take 1 tablet by mouth once daily. fluticasone (FLONASE) 50 mcg/actuation nasal spray Use 2 Sprays in each nostril once daily. Rinse mouth after use. Lancets lancets Test blood sugar(s) 2 times daily. Dx: Other DM Code 11.29 Insulin: No, A1c 7.5% 09/05/2021 meclizine (ANTIVERT) 25 mg tab Take 1 tablet by mouth every 6 hours as needed (dizziness). cholecalciferol (VITAMIN D) 1,000 unit tab tablet Take 1 tablet by mouth once daily. Take 4 tabletsdaily Multivitamin capsule Take 1 capsule by mouth once daily. aspirin, enteric coated (ADULT ASPIRIN REGIMEN) 81 mg EC tablet Take 1 tablet by mouth once daily. omega-3 fatty acids 1,000 mg cap Take 2 capsules by mouth once daily. (Patient not taking: Reportedon 10/17/2023) COMPOUNDED PRESCRIPTION Compression stockings, thigh high 15-20mmHg Dx: leg edema No current facility-administered medications on file prior to visit. 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 Lungs: Lungs clear to auscultation. No wheezing, rhonchi, rales.. Heart: RRR without murmur, gallop, or rubs. No ectopy. Musculoskeletal: Joint pain: Hips. Peripheral Pulses: Normal. Health Maintenance List Mammogram Screening due on 03/20/2024 HbA1C due on 04/17/2024 Colorectal Cancer Screening due on 05/01/2024 RSV Vaccine(1 - Risk 60-74 years 1-dose series) due on 10/16/2024 Shingrix Vaccine(2 of 3) due on 10/16/2024 Dilated Retinal Exam due on 10/08/2024 LDL Cholesterol due on 10/16/2024 Diabetic Foot Exam due on 10/16/2024 Annual PCP Team Chronic Disease Visit due on 10/16/2024 BP Controlled (<130/80) due on 10/16/2024 Urine Albumin:Creatinine Ratio due on 10/17/2024 DTaP,Tdap,Td Vaccine(2 - Td or Tdap) due on 01/29/2026 Bone Density Screening Completed Influenza Vaccine Completed Advance Directive Discussion Completed Hepatitis C Screening Completed Covid-19 Vaccine Completed Pneumococcal Vaccine: 65+ Completed Weight Weight 04/19/2024 272 lb 10/17/2023 294 lb 04/15/2023 307 lb 03/17/2023 306 lb 10/14/2022 304 lb 08/06/2022 305 lb 07/09/2022 305 lb 06/11/2022 306 lb 05/14/2022 309 lb 04/12/2022 307 lb Last 5 Encounter BP Readings: Date: BP: 04/19/2024 105/67 10/17/2023 124/82 04/15/2023 113/73 10/14/2022 126/74 08/06/2022 124/78 ASSESSMENT/PLAN: 1. Hypertension, essential - ICD9: 401.9, ICD10: I10 (primary diagnosis) - Controlled - Continue current medications - Recommend home blood pressure monitoring, to bring results to next visit - Encouraged sodium restriction, DASH or Mediterranean diet - Recommend regular aerobic exercise - Discussed need for and benefit of weight loss. BMI 43.24 kg/(m^2) 2. Mixed hyperlipidemia - ICD9: 272.2, ICD10: E78.2 - Control undetermined, due for labs - Continue current medications - Counseled on healthy diet and regular exercise - Discussed need for and benefit of weight loss. BMI 43.24 kg/(m^2) - LIPID PANEL, NONFASTING 3. Gastroesophageal reflux disease without esophagitis - ICD9: 530.81, ICD10: K21.9 - Discussed lifestyle modifications including losing weight, limiting caffeine, no meals three hours before sleep, and head of bed elevation - Continue treatment with Pantoprazole 20 mg QD 4. Type 2 diabetes mellitus with diabetic microalbuminuria, unspecified whether prison insulin use (HCC) - ICD9: 250.40, 791.0, ICD10: E11.29, R80.9 - Control undetermined, due for labs - Continue current medications - Counseled on healthy diet and regular exercise - Discussed need for and benefit of weight loss. BMI 43.24 kg/(m^2) - HEMOGLOBIN A1C 5. Encounter for screening mammogram for breast cancer - ICD9: V76.12, ICD10: Z12.31 - Set up for mammogram, yearly mammogram recommended - Encouraged monthly BSE - Follow up for annual exam in one year. - MINI SCREENING W IDRIS 6. WHIT (obstructive sleep apnea) - ICD9: 327.23, ICD10: G47.33 -Wears CPAP nightly 7. Recurrent major depression in partial remission (HCC) - ICD9: 296.35, ICD10: F33.41 -Continue current medications 8. Generalized anxiety disorder - ICD9: 300.02, ICD10: F41.1 -Continue current medication 9. Class 3 severe obesity with body mass index (BMI) of 40.0 to 44.9 in adult, unspecified obesity type, unspecified whether serious comorbidity present (HCC) - ICD9: 278.01, V85.41, ICD10: E66.813, E66.01, Z68.41 Weight decreasing 10. Primary osteoarthritis of right hip - ICD9: 715.15, ICD10: M16.11 -Declined 2nd opinion of hip at this time. Will continue with stretching and see if that improves it. Teddy Cox APRN.PERIOPERATIVE ASSISTANT [facility] Telephone encounter Note * Telephone Encounter - Katlyn Almanza MA - 02/16/2024 1:43 PM EDT HM updated. Katlyn Almanza MA [facility]10-07-2024 Miscellaneous Notes* Telephone Encounter - Katlyn Almanza MA - 02/16/2024 1:43 PM EDT HM updated. Katlyn Almanza MA * Telephone Encounter - Usha Leos - 02/16/2024 1:34 PM EDT Patient called to advise pcp office that she got her COVID and flu vaccines today at [facility] in [place]. She would like it updated in her chart. documented in this encounterDay[facility]10-[facility]24 Telephone encounter Note * Telephone Encounter - Usha Leos - 02/16/2024 1:34 PM EDT Patient called to advise pcp office that she got her COVID and flu vaccines today at [facility] in [place]. She would like it updated in her chart. [facility]09-16-2024 Telephone encounter Note* Telephone Encounter - Dot Perdomo - 01/26/2024 2:19 PM EDT Prescription Refill Information The patient has been identified by name and date of : Yes Caregiver verified no other encounters exist for this prescription request: Yes Caregiver confirmed with patient/requestor that no other refills are due, in the near future, with this provider at this time: Yes The last office visit in the department: 10/17/23 Does the patient have a future office visit with this provider/department: Yes Requested Prescriptions Pending Prescriptions Disp Refills amLODIPine (NORVASC) 10 mg tablet 90 tablet 3 Sig: Take 1 tablet by mouth once daily. glimepiride (AMARYL) 4 mg tablet 180 tablet 0 Sig: Take 1 tablet by mouth two times a day with meals. meloxicam (MOBIC) 15 mg tablet 90 tablet 3 Sig: Take 1 tablet by mouth once daily. With food. lisinopril (ZESTRIL) 30 mg tablet 90 tablet 3 Sig: Take 1 tablet by mouth once daily. Dot Quiles January 26, 2024 2:21 PM [facility]09-16-2024 Miscellaneous Notes* Telephone Encounter - Dot Perdomo - 01/26/2024 2:19 PM EDT Prescription Refill Information The patient has been identified by name and date of : Yes Caregiver verified no other encounters exist for this prescription request: Yes Caregiver confirmed with patient/requestor that no other refills are due, in the near future, with this provider at this time: Yes The last office visit in the department: 10/17/23 Does the patient have a future office visit with this provider/department: Yes Requested Prescriptions Pending Prescriptions Disp Refills amLODIPine (NORVASC) 10 mg tablet 90 tablet 3 Sig: Take 1 tablet by mouth once daily. glimepiride (AMARYL) 4 mg tablet 180 tablet 0 Sig: Take 1 tablet by mouth two times a day with meals. meloxicam (MOBIC) 15 mg tablet 90 tablet 3 Sig: Take 1 tablet by mouth once daily. With food. lisinopril (ZESTRIL) 30 mg tablet 90 tablet 3 Sig: Take 1 tablet by mouth once daily. Dot Quiles January 26, 2024 2:21 PM documented in this encounterCleveland [id number] Telephone encounter Note * Telephone Encounter - Bairon Collado LPN - 11/10/2023 2:35 PM EDT Pt notified of same. Pt advises that she has not started taking the Januvia yet. It was more expensive than she realized at the time that she went to get it but advises that she will be picking it upsoon and starting it. Bairon Collado LPN [facility]07-01-2024 Miscellaneous Notes* Telephone Encounter - Bairon Collado LPN - 11/10/2023 2:35 PM EDT Pt notified of same. Pt advises that she has not started taking the Januvia yet. It was more expensive than she realized at the time that she went to get it but advises that she will be picking it upsoon and starting it. Bairon Collado LPN * Telephone Encounter - Summer Telles PA-C - 11/10/2023 2:23 PM EDT Vit d level is normal. documented in this encounterDayton [facility]07-01-2024 Telephone encounter Note * Telephone Encounter - Summer Telles PA-C - 11/10/2023 2:23 PM EDT Vit d level is normal. [facility] Work Phone: [phone] NoteHNO ID: [id number] Author: BAIRON COLLADO LPN Service: ? Author Type: LICENSED NURSE Type: Progress Notes Filed: 11/07/2023 08:56 Note Text: Scan on 11/07/2023 8:29 AM by ProviderRebeca PA-C: [facility] History of Present illness Narrative* Bairon Collado LPN - 11/07/2023 8:55 AM EDT Scan on 11/07/2023 8:29 AM by ProviderRebeca PA-C: Consultation - Ophthalmology documented in this encounterDayton [facility]06-26-2024 Telephone encounter Note * Telephone Encounter - Katlyn Almanza MA - 11/05/2023 8:32 AM EDT Patient notified via other phone encounter regarding the bone density results. Katlyn Almanza MA [facility]06-26-[facility]24 Miscellaneous Notes* Telephone Encounter - Katlyn Almanza MA - 11/05/2023 8:32 AM EDT Patient notified via other phone encounter regarding the bone density results. Katlyn Almanza MA * Telephone Encounter - Katlyn Almanza MA - 11/05/2023 8:20 AM EDT Patient notified and voiced understanding. She will not be able to get the lab done for 2-3 days. Patient was inquiring about her Bone Density results. Katlyn Almanza MA * Telephone Encounter - Luis M Johnson MD - 11/04/2023 9:26 PM EDT Let patient know her parathyroid level was ok but her calcium is still high. I have placed an orderto check her Vit D. If normal the next step is to see endocrine. documented in this encounterDay[facility]06-26-2024 Telephone encounter Note * Telephone Encounter - Katlyn Almanza MA - 11/05/2023 8:31 AM EDT Left detailed message for patient with results. Katlyn Almanza MA [facility]06-[facility] Miscellaneous Notes* Telephone Encounter - Katlyn Almanza MA - 11/05/2023 8:31 AM EDT Left detailed message for patient with results. Katlyn Almanza MA * Telephone Encounter - Luis M Johnson MD - 11/04/2023 10:39 PM EDT Let patient know bone strength study was normal. documented in this encounterDayton [facility]06-26-2024 Telephone encounter Note * Telephone Encounter - Katlyn Almanza MA - 11/05/2023 8:20 AM EDT Patient notified and voiced understanding. She will not be able to get the lab done for 2-3 days. Patient was inquiring about her Bone Density results. Katlyn Almanza MA [facility]06-[facility] Telephone encounter Note* Telephone Encounter - Luis M Johnson MD - 11/04/2023 10:39 PM EDT Let patient know bone strength study was normal. [facility]06-[facility] Telephone encounter Note* Telephone Encounter - Luis M Johnson MD - 11/04/2023 9:26 PM EDT Let patient know her parathyroid level was ok but her calcium is still high. I have placed an orderto check her Vit D. If normal the next step is to see endocrine. [facility]06-[facility] History of Present illness Narrative* Lorenzo Walker RT(R) - 10/30/2023 2:15 PM EDT Radiology Service Progress Note PATIENT NAME: Beverly Givens DATE OF SERVICE: October 30, 2023 TIME: 1:45 PM PATIENT IDENTITY VERIFICATION COMPLETED USING TWO (2) IDENTIFIERS: Name and Date of confirmedby patient verbally. FALL SCREENING: Has the patient had 2 falls in the last year or 1 fall with injury or currently using an Ambulatory Assistive Device (Walker, Cane, Wheelchair, Crutches, etc.)? No PATIENT GENDER DATA: Female. status: : No status: NO. PATIENT RELEVANT IMPLANT DATA REVIEWED: Not Applicable PATIENT PRESENTS WITH AN IMPLANTABLE OR ATTACHED TIME LOCK EXPERT: No RADIOLOGY DEPARTMENT: Bone Density PERIPHERAL IV DATA: Not applicable SIGNED BY: RT Scooter(R) October 30, 2023 1:45 PM documented in this encounterDayton [facility]06-13-2024 Telephone encounter Note * Telephone Encounter - Luis M Johnson MD - 10/23/2023 1:17 PM EDT The following approved medication requests have been transmitted electronically. Requested Prescriptions Signed Prescriptions Disp Refills glimepiride (AMARYL) 4 mg tablet 180 tablet 0 Sig: Take 1 tablet by mouth two times a day with meals. Authorizing Provider: LUIS M JOHNSON blood sugar diagnostic (BLOOD GLUCOSE TEST) test strip 50 Strip 11 Sig: Test blood sugar(s) 2 times daily. Dx: Other DM Code E11.29 Insulin: No A1c 7.5% 09/05/2021 Authorizing Provider: LUIS M JOHNSON cyclobenzaprine (FLEXERIL) 10 mg tablet 60 tablet 2 Sig: Take 1 tablet by mouth two times a day as needed. Authorizing Provider: LUIS M JOHNSON metFORMIN ER (GLUCOPHAGE XR) 500 mg 24 hr tablet 360 tablet 1 Sig: Take 2 tablets by mouth two times a day. Authorizing Provider: LUIS M JOHNSON pantoprazole DR (PROTONIX) 20 mg tablet 90 tablet 1 Sig: take 1 tablet daily 1/2 hour before breakfast on an empty stomach Authorizing Provider: LUIS M JOHNSON MD [facility]06-[facility] Miscellaneous Notes* Telephone Encounter - Luis M Johnson MD - 10/23/2023 1:17 PM EDT The following approved medication requests have been transmitted electronically. Requested Prescriptions Signed Prescriptions Disp Refills glimepiride (AMARYL) 4 mg tablet 180 tablet 0 Sig: Take 1 tablet by mouth two times a day with meals. Authorizing Provider: LUIS M JOHNSON blood sugar diagnostic (BLOOD GLUCOSE TEST) test strip 50 Strip 11 Sig: Test blood sugar(s) 2 times daily. Dx: Other DM Code E11.29 Insulin: No A1c 7.5% 09/05/2021 Authorizing Provider: LUIS M JOHNSON cyclobenzaprine (FLEXERIL) 10 mg tablet 60 tablet 2 Sig: Take 1 tablet by mouth two times a day as needed. Authorizing Provider: LUIS M JOHNSON metFORMIN ER (GLUCOPHAGE XR) 500 mg 24 hr tablet 360 tablet 1 Sig: Take 2 tablets by mouth two times a day. Authorizing Provider: LUIS M JOHNSON pantoprazole DR (PROTONIX) 20 mg tablet 90 tablet 1 Sig: take 1 tablet daily 1/2 hour before breakfast on an empty stomach Authorizing Provider: LUIS M JOHNSON MD * Telephone Encounter - Dot Perdomo - 10/23/2023 12:57 PM EDT Prescription Refill Information The patient has been identified by name and date of : Yes Caregiver verified no other encounters exist for this prescription request: Yes Caregiver confirmed with patient/requestor that no other refills are due, in the near future, with this provider at this time: Yes The last office visit in the department: 10/17/23 Does the patient have a future office visit with this provider/department: Yes Requested Prescriptions Pending Prescriptions Disp Refills glimepiride (AMARYL) 4 mg tablet 180 tablet 0 Sig: Take 1 tablet by mouth two times a day with meals. blood sugar diagnostic (BLOOD GLUCOSE TEST) test strip 50 Strip 11 Sig: Test blood sugar(s) 2 times daily. Dx: Other DM Code E11.29 Insulin: No A1c 7.5% 09/05/2021 cyclobenzaprine (FLEXERIL) 10 mg tablet 60 tablet 2 Sig: Take 1 tablet by mouth two times a day as needed. metFORMIN ER (GLUCOPHAGE XR) 500 mg 24 hr tablet 360 tablet 1 Sig: Take 2 tablets by mouth two times a day. pantoprazole DR (PROTONIX) 20 mg tablet 90 tablet 1 Sig: take 1 tablet daily 1/2 hour before breakfast on an empty stomach Dot Quiles October 23, 2023 12:59 PM documented in this encounterDay[facility]06-13-2024 Telephone encounter Note * Telephone Encounter - Dot Perdomo - 10/23/2023 12:57 PM EDT Prescription Refill Information The patient has been identified by name and date of : Yes Caregiver verified no other encounters exist for this prescription request: Yes Caregiver confirmed with patient/requestor that no other refills are due, in the near future, with this provider at this time: Yes The last office visit in the department: 10/17/23 Does the patient have a future office visit with this provider/department: Yes Requested Prescriptions Pending Prescriptions Disp Refills glimepiride (AMARYL) 4 mg tablet 180 tablet 0 Sig: Take 1 tablet by mouth two times a day with meals. blood sugar diagnostic (BLOOD GLUCOSE TEST) test strip 50 Strip 11 Sig: Test blood sugar(s) 2 times daily. Dx: Other DM Code E11.29 Insulin: No A1c 7.5% 09/05/2021 cyclobenzaprine (FLEXERIL) 10 mg tablet 60 tablet 2 Sig: Take 1 tablet by mouth two times a day as needed. metFORMIN ER (GLUCOPHAGE XR) 500 mg 24 hr tablet 360 tablet 1 Sig: Take 2 tablets by mouth two times a day. pantoprazole DR (PROTONIX) 20 mg tablet 90 tablet 1 Sig: take 1 tablet daily 1/2 hour before breakfast on an empty stomach Dot [facility] October 23, 2023 12:59 PM [facility]06-[facility] Telephone encounter Note* Telephone Encounter - Katlyn Almanza MA - 10/21/2023 2:46 PM EDT Patient notified and voiced understanding. Katlyn Almanza MA [facility]06-11-2024 Miscellaneous Notes* Telephone Encounter - Katlyn Almanza MA - 10/21/2023 2:46 PM EDT Patient notified and voiced understanding. Katlyn Almanza MA * Telephone Encounter - Luis M Johnson MD - 10/21/2023 2:35 PM EDT Let patient know it's ok to get the calcium labs on 10/30/2023. The following approved medication requests have been transmitted electronically. Requested Prescriptions Signed Prescriptions Disp Refills SITagliptin phosphate (JANUVIA) 100 mg tablet 90 tablet 1 Sig: Take 1 tablet by mouth once daily. Authorizing Provider: LUIS M JOHNSON MD * Telephone Encounter - Katlyn Almanza MA - 10/21/2023 11:39 AM EDT Patient notified and voiced understanding. Patient is ok with starting the medication. [facility] in [place] is pharmacy. Patient is asking if she can wait until the do complete the calcium blood work as she has a bone density test that day as well. I told patient he may not want her to wait that long. Katlyn Almanza MA * Telephone Encounter - Katlyn Almanza MA - 10/20/2023 1:11 PM EDT Left message for patient to contact office. Katlyn Almanza MA * Telephone Encounter - Luis M Johnson MD - 10/20/2023 11:48 AM EDT Let patient know her lipid panel showed that her Trigs are elevated at 175 (goal<150). Her good and bad cholesterol were ok. Advise working on reduced fat in her diet Her A1c is higher at 7.8% and goal is less than 7.0%. I would suggest we add on Januvia 100 mg a day. If ok will send in a script. Calcium was elevated again. Placed labs to recheck this. The rest of her labs and urine studies were all ok. [facility] Telephone encounter Note * Telephone Encounter - Luis M Johnson MD - 10/21/2023 2:35 PM EDT Let patient know it's ok to get the calcium labs on 10/30/2023. The following approved medication requests have been transmitted electronically. Requested Prescriptions Signed Prescriptions Disp Refills SITagliptin phosphate (JANUVIA) 100 mg tablet 90 tablet 1 Sig: Take 1 tablet by mouth once daily. Authorizing Provider: LUIS M JOHNSON MD [facility] Telephone encounter Note* Telephone Encounter - Katlyn Almanza MA - 10/21/2023 11:39 AM EDT Patient notified and voiced understanding. Patient is ok with starting the medication. [facility] in [place] is pharmacy. Patient is asking if she can wait until the do complete the calcium blood work as she has a bone density test that day as well. I told patient he may not want her to wait that long. Ktalyn Almanza MA [facility]06-10[facility] Telephone encounter Note* Telephone Encounter - Katlyn Almanza MA - 10/20/2023 1:11 PM EDT Left message for patient to contact office. Katlyn Almanza MA [facility]06-10[facility] Telephone encounter Note* Telephone Encounter - Luis M Johnson MD - 10/20/2023 11:48 AM EDT Let patient know her lipid panel showed that her Trigs are elevated at 175 (goal<150). Her good and bad cholesterol were ok. Advise working on reduced fat in her diet Her A1c is higher at 7.8% and goal is less than 7.0%. I would suggest we add on Januvia 100 mg a day. If ok will send in a script. Calcium was elevated again. Placed labs to recheck this. The rest of her labs and urine studies were all ok. [facility]07[facility] Instructions* Patient Instructions* Luis M Johnson MD - 10/17/2023 1:19 PM EDT Consider getting the shingrix vaccine for the prevention of shingles from a local pharmacy along with the RSV vaccine. Screening schedule The following prevention plan is recommended: RSV Vaccine(1 - 1-dose 60+ series) Never done Shingrix Vaccine(2 of 3) due on 06/24/2016 Advance Directive Discussion due on 05/12/2023 Dilated Retinal Exam due on 05/31/2023 Covid-19 Vaccine() due on 08/15/2023 HbA1C due on 10/03/2023 Urine Albumin:Creatinine Ratio due on 10/02/2023 LDL Cholesterol due on 10/02/2023 Diabetic Foot Exam due on 10/15/2023 Mammogram Screening due on 03/20/2024 WHAT YOU CAN DO TO PREVENT FALLS Many falls can be prevented. By making some changes, you can lower your chances of falling. Four things YOU can do to prevent falls for you* and your caregiver 1. Begin a regular exercise program Exercise is one of the most important ways to lower your chances of falling. It makes you stronger and helps you feel better. Exercises that improve balance and coordination (like Clay Chi) are the most helpful. Lack of exercise leads to weakness and increases your chances of falling. Ask your doctor or health care provider about the best type of exercise program for you. 2. Have your health care provider review your medicines Have your doctor or pharmacist review all the medicines you take, even [id number] medicines. As you get older, the way medicines work in your body can change. Some medicines, or combinations of medicines, can make you sleepy or dizzy andcan cause you to fall. 3. Have your vision checked Have your eyes checked by an eye doctor at least once a year. You may be wearing the wrong glasses or have a condition like glaucoma or cataracts that limits your vision. Poor vision can increase your chances of falling. 4. Make your home safer About half of all falls happen at home. To make your home safer: Remove things you can trip over (like papers, books, clothes, and shoes) from stairs and places where you walk. Remove small throw rugs or use double-sided tape to keep the rugs from slipping. Keep items you use often in cabinets you can reach easily without using a step stool. Have grab bars put in next to your toilet and in the tub or shower. Use non-slip mats in the bathtub and on shower floors. Improve the lighting in your home. As you get older, you need brighter lights to see well. Hang light-weight curtains or shades to reduce glare. Have handrails and lights put in on all staircases. Wear shoes both inside and outside the house. Avoid going barefoot or wearing slippers. For more information, contact: Centers for Disease Control and Prevention www.cdc.gov/injury * This information may not apply if you have certain medical conditions. [facility] History of Present illness Narrative* Luis M Johnson MD - 10/17/2023 12:48 PM EDT Images from the original note were not included. Beverly Givens is a 73 year old female here for a Medicare wellness visit. Medicare Health Risk Assessment General Health Fair Exercise: Minutes/Day 0 min Exercise: Days/Week 0 days Alcohol: Daily Use Never Alcohol: Drinks/Day Patient does not drink Alcohol: 6 or more drinks Never Feel off balance No Concerns: Teeth/Dentures No Concerns: Sexual function No Troubled by feelings None of the above Frequency: Eating healthy diet More than half the days ADLs requiring help Safety precautions in home/vehicle No Smoke, vape, chews tobacco No Difficulty hearing No Difficulty seeing No Current Providers Specialists: I have reviewed specialist-related care of the patient in the medical record. Current care team: Patient Care Team: Luis M Johnson MD as PCP - General (Family Medicine) Opt Medical/Family history review Reviewed and updated problem list, medical/surgical/family/social history, medications, and allergies. Opioid use review Opioid Medications (last 90 days) No data to display Anxiety/Depression screening Depression Screening ASHELY-2 Total Score 10/10/2023 0 Depression screening tool completed and reviewed. Based on score and interview, patient is not at risk for depression. Screening tool discussed with patient, and I recommended no further interventionat this time. Cognitive screening Score: 5 Cognitive screening reviewed and No further action needed (score 3-5). Functional Observation Was the patient's Timed Up & Go test unsteady or ? 12 seconds? No Advance Care Planning Patient did not wish or was not able to name a surrogate decision maker or provide an advance care plan Measurements BP 124/82 Pulse 102 Resp 18 Ht 5' 6.5" (1.69m) Wt 294 lb (133.4kg) BMI 46.75 kg/(m^2). Vision Screening: Follows with optometry/ophthalmology Assessment/Plan Medicare annual wellness visit, subsequent (Z00.00) - Counseled on healthy diet and regular exercise - Fall avoidance information provided - Personalized prevention plan provided See Below Chief Complaint Patient presents with: Medicare Wellness Exam HPI Beverly Givens is a 73 year old female who presents here today for Chronic Medical Conditions. andMedicare Annual Visit. Patient with hx of DM type 2, GERD, Hyperlipidemia, WHIT, Anxiety, depression, morbid obesity, Fibromyalgia, ex-smoker, osteopenia, osteoarthritis as well as those reviewed and addressed below and in ROS Dr Reinoso - Eye doctor 10/09/2023. Patient has been doing ok. Just had a Fibro flare. Takes the mobic when needed. Past medical history, appointments, medications, allergies reviewed. Previous Medical History PAST MEDICAL HISTORY Diagnosis Date Adjustment disorder 10/29/2011 Advance directive discussed with patient 10/10/2021 Discussed 10/2021 Arthritis of knee, right 12/23/2012 Arthritis of left knee 05/28/2013 BPV (benign positional vertigo), unspecified laterality 11/22/2019 Chronic pain of both shoulders 10/10/2021 Chronic pain syndrome 11/26/2015 Sees Chronic sacroiliac (SI) strain 08/27/2013 DDD (degenerative disc disease), lumbar 07/26/2014 Ex-smoker 03/17/2019 Quit 09/2018 Fibromyalgia 06/06/2009 Foot callus 11/29/2020 Gastroesophageal reflux disease without esophagitis 10/02/2016 Generalized anxiety disorder 03/13/2006 Generalized osteoarthrosis, unspecified site Glaucoma History of knee replacement procedure of right knee Hx of colonic polyp 08/19/2018 Hypertension, essential 04/12/2022 Low serum vitamin B12 10/10/2021 Lumbago 05/19/2015 Medicare annual wellness visit, subsequent 08/05/2017 last done: 11/22/19 Medical B eligibilty date 06/12/2016 Mixed hyperlipidemia 02/12/2005 WHIT (obstructive sleep apnea) 07/04/2010 Titration done 01/2013 IMPRESSION: 1. At a CPAP setting of 12 cmH2O, the apnea- hypopnea and arousal indices were normalized. At this setting, snoring was eliminated and the oxygen saturation was maintained above 90%. Of note, both REM and supine sleep were present when this setting was tested. 2. Abnormal sleep architecture likely due to respiratory events, PAP titration, first night effect. RECOMMENDATIONS: CPAP 12 cmH20 with humidification. INTERPRETING PHYSICIAN: David Wolfe MD PSG done @ [facility] 11. Complete report has been scanned into [facility]. Neurology procedures. Osteopenia 06/07/2008 Recurrent major depression in partial remission (HCC) 05/30/2005 Stasis dermatitis of right lower extremity due to peripheral venous hypertension 04/02/2016 Status post left hip replacement Previous Surgical History PAST SURGICAL HISTORY Procedure Laterality Date ARTHROSCOPY KNEE DIAGNOSTIC W/WO SYNOVIAL BX SPX Arthroscopy, left knee ARTHRP ACETBLR/PROX FEM PROSTC AGRFT/ALGRFT left Hip replacement, total ARTHRP KNE CONDYLE&PLATU MEDIAL&LAT COMPARTMENTS 05/31/13 Knee replacement, total bilateral COLONOSCOPY FLX DX W/COLLJ SPEC WHEN PFRMD 03/03/2013 Colonoscopy, repeat 5 yrs DILATION & CURETTAGE DX&/THER NONOBSTETRIC Dilation & curettage ESOPHAGOGASTRODUODENOSCOPY TRANSORAL DIAGNOSTIC 03/03/13 EGD EXC CYST/ABERRANT BREAST TISSUE OPEN 1/> LESION 07/19/09 Exc upper inner left breast SC mass HYSTEROSCOPY, DIAGNOSTIC (SEPARATE Hysteroscopy Family History FAMILY HISTORY Problem Relation Age of Onset Osteoporosis Mother Cancer Mother skin Colon Cancer Mother 88 Diabetes Father Cancer Sister breast other (Other) Other fibromyalgia Patient Allergies ALLERGIES Allergen Reactions Famciclovir Rash large vesicles of fingers (2 fingers) Fentanyl Mental Status Change patches Lamictal [Lamotrigi* Mental Status Change mental cloudy Lyrica [Pregabalin] Other: See Comments Increased depression Oxycontin [Oxycodon* Other: See Comments Anxiety, depression Wellbutrin [Bupropi* Intolerance Mental status change Atarax [Hydroxyzine] Mental Status Change Niacin Other: See Comments depression Prevacid [Lansopraz* Unknown Current Medications Current Outpatient Medications on File Prior to Visit Medication Sig glimepiride (AMARYL) 4 mg tablet Take 1 tablet by mouth two times a day with meals. pantoprazole DR (PROTONIX) 20 mg tablet take 1 tablet daily 1/2 hour before breakfast on an empty stomach busPIRone (BUSPAR) 15 mg tablet Take 1 tablet by mouth two times a day. FLUoxetine (PROZAC) 20 mg capsule Take 2 capsules by mouth once daily. atorvastatin (LIPITOR) 40 mg tablet Take 1 tablet by mouth once daily. metFORMIN ER (GLUCOPHAGE XR) 500 mg 24 hr tablet Take 2 tablets by mouth two times a day. cyclobenzaprine (FLEXERIL) 10 mg tablet Take 1 tablet by mouth two times a day as needed. lisinopril (ZESTRIL) 30 mg tablet Take 1 tablet by mouth once daily. amLODIPine (NORVASC) 10 mg tablet Take 1 tablet by mouth once daily. meloxicam (MOBIC) 15 mg tablet Take 1 tablet by mouth once daily. With food. pioglitazone (ACTOS) 45 mg tablet Take 1 tablet by mouth once daily. blood sugar diagnostic (BLOOD GLUCOSE TEST) test strip Test blood sugar(s) 2 times daily. Dx: OtherDM Code E11.29 Insulin: No A1c 7.5% 09/05/2021 fluticasone (FLONASE) 50 mcg/actuation nasal spray Use 2 Sprays in each nostril once daily. Rinse mouth after use. Lancets lancets Test blood sugar(s) 2 times daily. Dx: Other DM Code 11.29 Insulin: No, A1c 7.5% 09/05/2021 albuterol HFA (PROVENTIL HFA, VENTOLIN HFA) 90 mcg/actuation inhaler Inhale 2 Puffs as instructed every 4 hours as needed. meclizine (ANTIVERT) 25 mg tab Take 1 tablet by mouth every 6 hours as needed (dizziness). cholecalciferol (VITAMIN D) 1,000 unit tab tablet Take 1 tablet by mouth once daily. Take 4 tabletsdaily Ascorbic Acid (VITAMIN C) 1,000 mg tablet Take 1 tablet by mouth once daily. Multivitamin capsule Take 1 capsule by mouth once daily. bifidobacteri bifid.and longum (FLORAJEN BIFIDOBLEND) 460 mg (9-1 bill.cell) cap Take 1 capsule by mouth once daily. aspirin, enteric coated (ADULT ASPIRIN REGIMEN) 81 mg EC tablet Take 1 tablet by mouth once daily. omega-3 fatty acids 1,000 mg cap Take 2 capsules by mouth once daily. COMPOUNDED PRESCRIPTION Compression stockings, thigh high 15-20mmHg Dx: leg edema No current facility-administered medications on file prior to visit. 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 Just her Fibro headache's. No changes in hearing or vision, no nose bleeds or other nasal problems NECK: Negative for lumps, goiter, pain and significant neck swelling RESPIRATORY: Negative for cough, hemoptysis, wheezing, COPD, dyspnea or shortness of breath. Does not need her rescue inhaler on a regular basis. No nocturnal shortness of breath. CARDIOVASCULAR: Negative for chest pain, increased leg swelling, hypertension, CHF or palpitations GI: No nausea, vomiting, or diarrhea, No heartburn or reflux symptoms, and no blood : No history of dysuria, frequency or blood MUSCULOSKELETAL: has her typical muscle and jint pains. No new issues SKIN: Negative for lesions, rash, and itching PSYCH: Negative for sleep disturbance, mood disorder and recent psychosocial stressors HEMATOLOGY/LYMPHOLOGY: Negative for prolonged bleeding, bruising easily or swollen nodes ENDOCRINE: Negative for cold or heat intolerance, or symptoms of lows low BS's NEURO: No history of headaches, syncope, paralysis, seizures or tremors EXAM: BP 124/82 (BP Site: Left Arm, BP Position: Sitting, BP Cuff Size: Large Adult) Pulse 102 Resp 18 Ht 168.9 cm (5' 6.5") Wt 133.4 kg (294 lb) BMI 46.74 kg/m Last 5 Encounter Wt Readings: Date: Wt: 10/17/2023 133.4 kg (294 lb) 04/15/2023 139.3 kg (307 lb) 03/17/2023 138.8 kg (306 lb) 10/14/2022 137.9 kg (304 lb) 08/06/2022 138.3 kg (305 lb) General Appearance: Well appearing, alert, in no acute distress, well-hydrated, well nourished. andMorbidly obese. Skin: Skin color, texture, turgor normal, no suspicious rashes or lesions. Head: Normocephalic, no masses, lesions, tenderness or abnormalities. Eyes: Anicteric sclera. Pupils are equally round and reactive to light. Extraocular movements are intact. . Ears: External ears, TM's normal, canals clear. Nose/Sinuses: Nares normal, septum midline, mucosa normal, no drainage or sinus tenderness. Oropharynx: Lips, mucosa, and tongue normal, teeth and gums normal, oropharynx normal. Neck: Supple, no adenopathy; thyroid symmetric, normal size, no bruits. Lungs: Lungs clear to auscultation. No wheezing, rhonchi, rales.. Heart: RRR without murmur, gallop, or rubs. No ectopy. Abdomen: Normal abdominal exam, Abdomen soft, non-tender. Bowel sounds normal. No masses, organomegaly. Extremities: No deformities, edema, skin discoloration, clubbing or cyanosis. Good capillary refill. . Musculoskeletal: Muscular strength intact, No joint swelling, deformity, or tenderness. Peripheral Pulses: Normal. Neurologic: Gait aided with cane. Sensation to light touch and crainal nerves 2- 12 intact.. Diabetic Foot Exam: Feet: Shoes and socks removed, no deformities, ulcers, calluses, normal distal pulses, sensitive to10 gm microfilament, and vibratory exam due to edema over the ankles was not able to feel vibration. Skin: warm, dry, and no callouses or ulcer Vascular Pulses: Normal SEMMES-NOEL MONOFILAMENT TESTING Left Foot Right Foot Dorsal Surface Intact Dorsal Surface Intact Plantar Surface Intact Plantar Surface Intact Health Maintenance List RSV Vaccine(1 - 1-dose 60+ series) Never done Shingrix Vaccine(2 of 3) due on 06/24/2016 Advance Directive Discussion due on 05/12/2023 Dilated Retinal Exam due on 05/31/2023 Covid-19 Vaccine( season) due on 08/15/2023 HbA1C due on 10/03/2023 Urine Albumin:Creatinine Ratio due on 10/02/2023 LDL Cholesterol due on 10/02/2023 Diabetic Foot Exam due on 10/15/2023 Mammogram Screening due on 03/20/2024 Annual PCP Team Chronic Disease Visit due on 04/15/2024 BP Controlled (<130/80) due on 04/15/2024 Colorectal Cancer Screening due on 05/01/2024 DTaP,Tdap,Td Vaccine(2 - Td or Tdap) due on 01/29/2026 Bone Density Screening Completed Influenza Vaccine Completed Hepatitis C Screening Completed Pneumococcal Vaccine: 65+ Completed Data reviewed A/P ASSESSMENT/PLAN: 1. Medicare annual wellness visit, subsequent - ICD9: V70.0, ICD10: Z00.00 (primary diagnosis) - Counseled on healthy diet and regular exercise - Discussed need and benefit for weight loss. BMI 46.74 kg/(m^2) - Patient was counseled [id number] by myself (the billing provider) for the following immunizations and vaccine components, including side effects: COVID- 19. Patient consents for immunization and understands risks and benefits. A VIS sheet on each immunization was given to the patient. - Follow up for annual exam in one year - advised on Shingrix and RSV vaccines. 2. Type 2 diabetes mellitus with diabetic microalbuminuria, unspecified whether long term care social worker insulin use (HCC) - ICD9: 250.40, 791.0, ICD10: E11.29, R80.9 - will await labs - Continue current medications - Counseled on healthy diet and regular exercise - Discussed need for and benefit of weight loss. BMI 46.74 kg/(m^2) Check - ALBUMIN/CREATININE RATIO, URINE - COMPREHENSIVE METABOLIC PANEL - HEMOGLOBIN A1C - URINALYSIS, WITH MICROSCOPIC - LIPID PANEL, NONFASTING - COMPLETE BLOOD COUNT AND DIFFERENTIAL - CONSULT TO PODIATRY 3. Diabetic eye exam (HCC) - ICD9: V72.0, 250.00, ICD10: Z01.00, E11.9 - will get recent report. 4. Mixed hyperlipidemia - ICD9: 272.2, ICD10: E78.2 - await labs. - Continue current medications - Counseled on healthy diet and regular exercise - Discussed need for and benefit of weight loss. BMI 46.74 kg/(m^2) - COMPREHENSIVE METABOLIC PANEL - URINALYSIS, WITH MICROSCOPIC - LIPID PANEL, NONFASTING 5. Hypertension, essential - ICD9: 401.9, ICD10: I10 - Controlled - Continue current medications - Recommend home blood pressure monitoring, to bring results to next visit - Encouraged sodium restriction, DASH or Mediterranean diet - Recommend regular aerobic exercise - Discussed need for and benefit of weight loss. BMI 46.74 kg/(m^2) - COMPREHENSIVE METABOLIC PANEL - URINALYSIS, WITH MICROSCOPIC - LIPID PANEL, NONFASTING 6. Gastroesophageal reflux disease without esophagitis - ICD9: 530.81, ICD10: K21.9 - Continue treatment with Protonix 20 mg every day Check - VITAMIN B12 - MAGNESIUM 7. Recurrent major depression in partial remission (HCC) - ICD9: 296.35, ICD10: F33.41 - doing well on current Tx. No changes 8. Generalized anxiety disorder - ICD9: 300.02, ICD10: F41.1 - as per #7 Check - THYROID STIMULATING HORMONE 9. Adjustment disorder, unspecified type - ICD9: 309.9, ICD10: F43.20 - as per #7 10. Fibromyalgia - ICD9: 729.1, ICD10: M79.7 - stable for the most part with current Tx. 11. Recovering alcoholic (HCC) - ICD9: 303.93, ICD10: F10.21 - patient continues to abstain. 12. Morbid obesity with body mass index (BMI) of 45.0 to 49.9 in adult (HCC) - ICD9: 278.01, V85.42, ICD10: E66.01, Z68.42 Weight decreasing - Behavioral intervention 13. Stasis dermatitis of right lower extremity due to peripheral venous hypertension - ICD9: 454.1,459.30, ICD10: I87.321 - stable on exam and no skin breakdown. 14. WHIT (obstructive sleep apnea) - ICD9: 327.23, ICD10: G47.33 - patient to continue nightly CPAP which she does and provides benefit. 15. Foot callus - ICD9: 700, ICD10: L84 - none on exam today. Much better. 16. Osteopenia, senile - ICD9: 733.90, ICD10: M85.80 - set up for BMD AP Spine and Hip Unilateral - Reviewed the need for Calcium and Vitamin D supplements and weight bearing exercise as tolerated 17. Encounter for immunization - ICD9: V03.89, ICD10: Z23 - Digerati COVID-19 VACCINE (2022- SEASON) AGE 12+ YR: given 18. Medication management - ICD9: V58.69, ICD10: Z79.899 Check - VITAMIN B12 - THYROID STIMULATING HORMONE - MAGNESIUM 19. Diabetic foot (HCC) - ICD9: 250.80, ICD10: E11.8 - CONSULT TO PODIATRY Requested Prescriptions Signed Prescriptions Disp Refills albuterol HFA (PROVENTIL HFA, VENTOLIN HFA) 90 mcg/actuation inhaler 1 Each 1 Sig: Inhale 2 Puffs as instructed every 4 hours as needed. atorvastatin (LIPITOR) 40 mg tablet 90 tablet 1 Sig: Take 1 tablet by mouth once daily. busPIRone (BUSPAR) 15 mg tablet 180 tablet 1 Sig: Take 1 tablet by mouth two times a day. FLUoxetine (PROZAC) 20 mg capsule 180 capsule 1 Sig: Take 2 capsules by mouth once daily. F/u 6 months routine I spent a total of 40 minutes on the date of the service which included preparing to see the patient, [id number] patient care, completing clinical documentation, performing a medically appropriate examination, counseling and educating the patient/family/caregiver and ordering medications, tests, or procedures. Luis M Johnson MD Behavioral Health Screening PHQ-9 Score: 2 (Minimal Depression) ASHELY-2 Score: 0 (Lower risk for anxiety) Recommendation: continuing current treatment plan [facility] Miscellaneous Notes* Telephone Encounter - Luis M Johnson MD - 07/31/2023 11:46 AM EDT The following approved medication requests have been transmitted electronically. Requested Prescriptions Signed Prescriptions Disp Refills glimepiride (AMARYL) 4 mg tablet 180 tablet 0 Sig: Take 1 tablet by mouth two times a day with meals. Authorizing Provider: LUIS M JOHNSON MD * Telephone Encounter - Jayda Garza - 07/31/2023 11:08 AM EDT Pharmacy verified in Epic Patient has been identified by name and date of : Yes Patient aware RX will be sent to pharmacy. No need to notify patient. Patient phones for refill(s): Requested Prescriptions Pending Prescriptions Disp Refills glimepiride (AMARYL) 4 mg tablet 150 tablet 0 Sig: Take 1 tablet by mouth two times a day with meals. Date of last office visit : 04/15/2023 Date of next office visit : 10/17/2023 Last 2 Encounter Wt Readings: Date: Wt: 04/15/2023 139.3 kg (307 lb) 03/17/2023 138.8 kg (306 lb) Not applicable Please advise. Jayda Quiles documented in [facility]Day[facility]12[facility]23 Miscellaneous Notes* Telephone Encounter - Luis M Johnson MD - 04/26/2023 4:37 PM EST The following approved medication requests have been transmitted electronically. Requested Prescriptions Signed Prescriptions Disp Refills busPIRone (BUSPAR) 15 mg tablet 180 tablet 1 Sig: Take 1 tablet by mouth two times a day. Authorizing Provider: LUIS M JOHNSON FLUoxetine (PROZAC) 20 mg capsule 180 capsule 1 Sig: Take 2 capsules by mouth once daily. Authorizing Provider: LUIS M JOHNSON atorvastatin (LIPITOR) 40 mg tablet 90 tablet 1 Sig: Take 1 tablet by mouth once daily. Authorizing Provider: LUIS M JOHNSON metFORMIN ER (GLUCOPHAGE XR) 500 mg 24 hr tablet 360 tablet 1 Sig: Take 2 tablets by mouth two times a day. Authorizing Provider: LUIS M JOHNSON cyclobenzaprine (FLEXERIL) 10 mg tablet 60 tablet 2 Sig: Take 1 tablet by mouth two times a day as needed. Authorizing Provider: LUIS M JOHNSON glimepiride (AMARYL) 4 mg tablet 180 tablet 1 Sig: Take 1 tablet by mouth two times a day with meals. Authorizing Provider: LUIS M JHONSON MD * Telephone Encounter - Odette Christianson - 04/25/2023 11:18 AM EST Patient has been identified by name and date of : Yes, Provider Dr. Johnson Date 04-25-23 Time 11:20 am Patient phones for refill(s): Requested Prescriptions Pending Prescriptions Disp Refills busPIRone (BUSPAR) 15 mg tablet 180 tablet 1 Sig: Take 1 tablet by mouth two times a day. FLUoxetine (PROZAC) 20 mg capsule 180 capsule 1 Sig: Take 2 capsules by mouth once daily. atorvastatin (LIPITOR) 40 mg tablet 90 tablet 1 Sig: Take 1 tablet by mouth once daily. metFORMIN ER (GLUCOPHAGE XR) 500 mg 24 hr tablet 360 tablet 1 Sig: Take 2 tablets by mouth two times a day. cyclobenzaprine (FLEXERIL) 10 mg tablet 60 tablet 2 Sig: Take 1 tablet by mouth two times a day as needed. glimepiride (AMARYL) 4 mg tablet 180 tablet 1 Sig: Take 1 tablet by mouth two times a day with meals. Date of last office visit in primary care: 04/15/2023 Date of next office visit in primary care: 10/17/2023 Last 2 Encounter Wt Readings: Date: Wt: 04/15/2023 139.3 kg (307 lb) 03/17/2023 138.8 kg (306 lb) Previous labs/tests for medication: Not applicable Please advise. Thank you. Odette Quiles. [facility] Miscellaneous Notes* Telephone Encounter - Geena Haley LPN - 04/15/2023 6:31 PM EST Phoned patient and reviewed results and recommendations with her. Patient voiced understanding. * Telephone Encounter - Teddy Cox APRN.CNP - 04/15/2023 4:43 PM EST Please let patient know her mammogram is negative. Patient should continue with annual screenings. documented in [facility]Day[facility]12[facility]23 History of Present illness Narrative* Reshma Kelley RT([place]) - 04/15/2023 3:30 PM EST Radiology Service Progress Note PATIENT NAME: Beverly Givens DATE OF SERVICE: April 15, 2023 TIME: 2:54 PM PATIENT IDENTITY VERIFICATION COMPLETED USING TWO (2) IDENTIFIERS: Name and Date of confirmedby patient verbally. FALL SCREENING: Has the patient had 2 falls in the last year or 1 fall with injury or currently using an Ambulatory Assistive Device (Walker, Cane, Wheelchair, Crutches, etc.)? No PATIENT GENDER DATA: Female. status: : No status: NO. PATIENT RELEVANT IMPLANT DATA REVIEWED: Not Applicable RADIOLOGY DEPARTMENT: Mammography PERIPHERAL IV DATA: Not applicable SIGNED BY: RT Aurelio(R) April 15, 2023 2:54 PM documented in this encounterDay[facility]12[facility]23 History of Present illness Narrative* Teddy Cox APRN.PERIOPERATIVE ASSISTANT - 04/15/2023 12:53 PM EST Chief Complaint Patient presents with: 6 Month Exam HPI Beverly Givens is a 72 year old female who presents here today for Above Complaints.. Patient presents for routine follow up. Patient reports needing new prescription for handicap placard. Patient reports she is doing well and does not have complaints/concerns at this time. Past medical history, appointments, medications, allergies reviewed. Previous Medical History PAST MEDICAL HISTORY Diagnosis Date Adjustment disorder 10/29/2011 Advance directive discussed with patient 10/10/2021 Discussed 10/2021 Arthritis of knee, right 12/23/2012 Arthritis of left knee 05/28/2013 BPV (benign positional vertigo), unspecified laterality 11/22/2019 Chronic pain of both shoulders 10/10/2021 Chronic pain syndrome 11/26/2015 Sees Chronic sacroiliac (SI) strain 08/27/2013 DDD (degenerative disc disease), lumbar 07/26/2014 Ex-smoker 03/17/2019 Quit 09/2018 Fibromyalgia 06/06/2009 Foot callus 11/29/2020 Gastroesophageal reflux disease without esophagitis 10/02/2016 Generalized anxiety disorder 03/13/2006 Generalized osteoarthrosis, unspecified site Glaucoma History of knee replacement procedure of right knee Hx of colonic polyp 08/19/2018 Hypertension, essential 04/12/2022 Low serum vitamin B12 10/10/2021 Lumbago 05/19/2015 Medicare annual wellness visit, subsequent 08/05/2017 last done: 11/22/19 Medical B eligibilty date 06/12/2016 Mixed hyperlipidemia 02/12/2005 WHIT (obstructive sleep apnea) 07/04/2010 Titration done 01/2013 IMPRESSION: 1. At a CPAP setting of 12 cmH2O, the apnea- hypopnea and arousal indices were normalized. At this setting, snoring was eliminated and the oxygen saturation was maintained above 90%. Of note, both REM and supine sleep were present when this setting was tested. 2. Abnormal sleep architecture likely due to respiratory events, PAP titration, first night effect. RECOMMENDATIONS: CPAP 12 cmH20 with humidification. INTERPRETING PHYSICIAN: David Wolfe MD PSG done @ [facility] 11. Complete report has been scanned into [id number]. Neurology procedures. Osteopenia 06/07/2008 Recurrent major depression in partial remission (HCC) 05/30/2005 Stasis dermatitis of right lower extremity due to peripheral venous hypertension 04/02/2016 Status post left hip replacement Previous Surgical History PAST SURGICAL HISTORY Procedure Laterality Date ARTHROSCOPY KNEE DIAGNOSTIC W/WO SYNOVIAL BX SPX Arthroscopy, left knee ARTHRP ACETBLR/PROX FEM PROSTC AGRFT/ALGRFT left Hip replacement, total ARTHRP KNE CONDYLE&PLATU MEDIAL&LAT COMPARTMENTS 05/31/13 Knee replacement, total bilateral COLONOSCOPY FLX DX W/COLLJ SPEC WHEN PFRMD 03/03/2013 Colonoscopy, repeat 5 yrs DILATION & CURETTAGE DX&/THER NONOBSTETRIC Dilation & curettage ESOPHAGOGASTRODUODENOSCOPY TRANSORAL DIAGNOSTIC 03/03/13 EGD EXC CYST/ABERRANT BREAST TISSUE OPEN 1/> LESION 07/19/09 Exc upper inner left breast SC mass HYSTEROSCOPY, DIAGNOSTIC (SEPARATE Hysteroscopy Family History FAMILY HISTORY Problem Relation Age of Onset Osteoporosis Mother Cancer Mother skin Colon Cancer Mother 88 Diabetes Father Cancer Sister breast other (Other) Other fibromyalgia Patient Allergies ALLERGIES Allergen Reactions Famciclovir Rash large vesicles of fingers (2 fingers) Fentanyl Mental Status Change patches Lamictal [Lamotrigi* Mental Status Change mental cloudy Lyrica [Pregabalin] Other: See Comments Increased depression Oxycontin [Oxycodon* Other: See Comments Anxiety, depression Wellbutrin [Bupropi* Intolerance Mental status change Atarax [Hydroxyzine] Mental Status Change Niacin Other: See Comments depression Prevacid [Lansopraz* Unknown Current Medications Current Outpatient Medications on File Prior to Visit Medication Sig lisinopril (ZESTRIL) 30 mg tablet Take 1 tablet by mouth once daily. amLODIPine (NORVASC) 10 mg tablet Take 1 tablet by mouth once daily. meloxicam (MOBIC) 15 mg tablet Take 1 tablet by mouth once daily. With food. cyclobenzaprine (FLEXERIL) 10 mg tablet Take 1 tablet by mouth twice daily as needed. pantoprazole DR (PROTONIX) 20 mg tablet take 1 tablet daily 1/2 hour before breakfast on an empty stomach glimepiride (AMARYL) 4 mg tablet Take 1 tablet by mouth twice daily with meals. atorvastatin (LIPITOR) 40 mg tablet Take 1 tablet by mouth once daily. busPIRone (BUSPAR) 15 mg tablet Take 1 tablet by mouth twice daily. FLUoxetine (PROZAC) 20 mg capsule Take 2 capsules by mouth once daily. metFORMIN ER (GLUCOPHAGE XR) 500 mg 24 hr tablet Take 2 tablets by mouth twice daily. pioglitazone (ACTOS) 45 mg tablet Take 1 tablet by mouth once daily. blood sugar diagnostic (BLOOD GLUCOSE TEST) test strip Test blood sugar(s) 2 times daily. Dx: OtherDM Code E11.29 Insulin: No A1c 7.5% 09/05/2021 fluticasone (FLONASE) 50 mcg/actuation nasal spray Use 2 Sprays in each nostril once daily. Rinse mouth after use. Lancets lancets Test blood sugar(s) 2 times daily. Dx: Other DM Code 11.29 Insulin: No, A1c 7.5% 09/05/2021 albuterol HFA (PROVENTIL HFA, VENTOLIN HFA) 90 mcg/actuation inhaler Inhale 2 Puffs as instructed every 4 hours as needed. meclizine (ANTIVERT) 25 mg tab Take 1 tablet by mouth every 6 hours as needed (dizziness). cholecalciferol (VITAMIN D) 1,000 unit tab tablet Take 1 tablet by mouth once daily. Take 4 tabletsdaily Ascorbic Acid (VITAMIN C) 1,000 mg tablet Take 1 tablet by mouth once daily. Multivitamin capsule Take 1 capsule by mouth once daily. bifidobacteri bifid.and longum (FLORAJEN BIFIDOBLEND) 460 mg (9-1 bill.cell) cap Take 1 capsule by mouth once daily. aspirin, enteric coated (ADULT ASPIRIN REGIMEN) 81 mg EC tablet Take 1 tablet by mouth once daily. omega-3 fatty acids 1,000 mg cap Take 2 capsules by mouth once daily. COMPOUNDED PRESCRIPTION Compression stockings, thigh high 15-20mmHg Dx: leg edema No current facility-administered medications on file prior to visit. Social History Social History Tobacco Use Smoking status: Former Packs/day: 0.50 Years: 30.00 Additional pack years: 0.00 Total pack years: 15.00 Types: Cigarettes Quit date: 10/11/2012 Years since quittin.5 Smokeless tobacco: Never Vaping Use Vaping Use: Never used Substance Use Topics Alcohol use: No Drug use: No Comment: hx abuse- clean for 20 yrs per pt report Review of Symptoms REVIEW OF SYSTEMS SEE HPI EXAM: BP 113/73 Pulse 118 Resp 18 Wt (!) 139.3 kg (307 lb) BMI 49.55 kg/m General Appearance: Well appearing, alert, in no acute distress, well-hydrated, well nourished.. Skin: Skin color, texture, turgor normal, no suspicious rashes or lesions. Lungs: Lungs clear to auscultation. No wheezing, rhonchi, rales.. Heart: RRR without murmur, gallop, or rubs. No ectopy. Abdomen: Normal abdominal exam, Abdomen soft, non-tender. Bowel sounds normal. No masses, organomegaly Musculoskeletal: No joint swelling, deformity, or tenderness. Peripheral Pulses: Normal. Neurologic: Gait normal. Reflexes normal and symmetric. Sensation grossly intact. Health Maintenance List RSV Vaccine(1 - 1-dose 60+ series) Never done Shingrix Vaccine(2 of 3) due on 06/24/2016 Covid-19 Vaccine(2022- season) due on 01/10/2023 Colorectal Cancer Screening due on 04/23/2023 Advance Directive Discussion due on 05/11/2023 Dilated Retinal Exam due on 05/31/2023 Urine Albumin:Creatinine Ratio due on 10/02/2023 LDL Cholesterol due on 10/02/2023 HbA1C due on 10/03/2023 Diabetic Foot Exam due on 10/15/2023 Annual PCP Team Chronic Disease Visit due on 10/15/2023 BP Controlled (<130/80) due on 10/15/2023 Mammogram Screening due on 03/20/2024 DTaP,Tdap,Td Vaccine(2 - Td or Tdap) due on 01/29/2026 Bone Density Screening Completed Influenza Vaccine Completed Hepatitis C Screening Completed Pneumococcal Vaccine: 65+ Completed Data reviewed Component Latest Ref Rng & Units 04/04/2023 Protein, Total 6.3 - 8.0 g/dL 7.7 Albumin 3.9 - 4.9 g/dL 4.8 Calcium 8.5 - 10.2 mg/dL 10.4 (H) Bilirubin, Total 0.2 - 1.3 mg/dL 0.3 Alkaline Phosphatase 34 - 123 U/L 82 AST 13 - 35 U/L 20 ALT 7 - 38 U/L 29 Glucose 74 - 99 mg/dL 129 (H) BUN 7 - 21 mg/dL 11 Creatinine 0.58 - 0.96 mg/dL 0.73 Sodium 136 - 144 mmol/L 141 Potassium 3.7 - 5.1 mmol/L 4.5 Chloride 97 - 105 mmol/L 102 CO2 22 - 30 mmol/L 22 Anion Gap 9 - 18 mmol/L 17 eGFR >=60 mL/min/1.73m 88 Hemoglobin A1C 4.3 - 5.6 % 6.8 (H) Estimated Average Glucose mg/dL 148 PTH, Intact 15 - 65 pg/mL 34 ASSESSMENT/PLAN: 1. Fibromyalgia - ICD9: 729.1, ICD10: M79.7 (primary diagnosis) - PARKING FOR HANDICAPPED 2. DDD (degenerative disc disease), lumbar - ICD9: 722.52, ICD10: M51.36 Chronic low back pain - PARKING FOR HANDICAPPED 3. Generalized anxiety disorder - ICD9: 300.02, ICD10: F41.1 - PARKING FOR HANDICAPPED 4. Hypertension, essential - ICD9: 401.9, ICD10: I10 - Controlled - Continue current medications - Recommend home blood pressure monitoring, to bring results to next visit - Encouraged sodium restriction, DASH or Mediterranean diet - Recommend regular aerobic exercise - Discussed need for and benefit of weight loss. BMI 49.55 kg/(m^2) 5. Gastroesophageal reflux disease without esophagitis - ICD9: 530.81, ICD10: K21.9 - Discussed lifestyle modifications including losing weight, limiting caffeine, no meals three hours before sleep, and head of bed elevation - Continue treatment with protonix QD 6. Type 2 diabetes mellitus with microalbuminuria, unspecified whether prison insulin use (HCC) - ICD9: 250.40, 791.0, ICD10: E11.29, R80.9 - Improving control - Continue current medications - Counseled on healthy diet and regular exercise - Discussed need for and benefit of weight loss. BMI 49.55 kg/(m^2) 7. WHIT (obstructive sleep apnea) - ICD9: 327.23, ICD10: G47.33 -Wears CPAP nightly 8. Adjustment disorder, unspecified type - ICD9: 309.9, ICD10: F43.20 -Continue prozac, buspar 9. Mixed hyperlipidemia - ICD9: 272.2, ICD10: E78.2 - Controlled - Continue current medications - Counseled on healthy diet and regular exercise 10. Encounter for immunization - ICD9: V03.89, ICD10: Z23 - [employer] COVID-19 VACCINE (2022- SEASON) AGE 12+ YR 11. Low serum vitamin B12 - ICD9: 266.2, ICD10: E53.8 -Continue supplement 12. Morbid obesity with body mass index (BMI) of 45.0 to 49.9 in adult (HCC) - ICD9: 278.01, V85.42, ICD10: E66.01, Z68.42 Stable 13. Recurrent major depression in partial remission (HCC) - ICD9: 296.35, ICD10: F33.41 -Continue prozac and buspar 14. Chronic pain syndrome - ICD9: 338.4, ICD10: G89.4 -Continue flexeril, mobic and stretching 15. Primary osteoarthritis of right hip - ICD9: 715.15, ICD10: M16.11 --Continue flexeril, mobic and stretching Teddy Cox APRN.PERIOPERATIVE ASSISTANT documented in [facility] encounterDay[facility]11-[facility]23 Miscellaneous Notes* Telephone Encounter - Nguyen Florez RN - 03/29/2023 11:03 AM EST Pt has appointment 04/15/23. * Telephone Encounter - Gisselle Zhu Ma - 03/21/2023 11:12 AM EST Called and left message on patients voicemail to return call to the office and ask to speak with a triage nurse. Gisselle Zhu Ma * Telephone Encounter - Teddy Cox APRN.ELOISA - 03/21/2023 10:41 AM EST Please let patient know her mammogram is indeterminate and she needs further follow up. I have ordered additional mammogram and us documented in this encounterDayton [facility]11-18-2023 Miscellaneous Notes* Telephone Encounter - Nguyen Florez RN - 03/29/2023 11:03 AM EST Patient has been identified by name and date of : Yes, Provider Dr Johnson Date 03/29/23 Time 1104. Patient phones for refill(s): Requested Prescriptions Pending Prescriptions Disp Refills lisinopril (ZESTRIL) 30 mg tablet 30 tablet 1 Sig: Take 1 tablet by mouth once daily. amLODIPine (NORVASC) 10 mg tablet 30 tablet 2 Sig: Take 1 tablet by mouth once daily. meloxicam (MOBIC) 15 mg tablet 90 tablet 1 Sig: Take 1 tablet by mouth once daily. With food. Date of last office visit in primary care: 10/14/2022 Date of next office visit in primary care: 04/15/2023 Last 2 Encounter Wt Readings: Date: Wt: 03/17/2023 138.8 kg (306 lb) 10/14/2022 137.9 kg (304 lb) Previous labs/tests for medication: Blood Pressure: BUN (mg/dL) Date Value 10/01/2022 14 03/27/2021 16 Sodium (mmol/L) Date Value 10/01/2022 139 03/27/2021 140 Last 1 Encounter BP Readings: Date: BP: 10/14/2022 126/74 Please advise. Thank you. Nguyen Florez RN. documented in this encounterDayton [facility]11-17-2023 History of Present illness Narrative* Jewels Lopez, PT - 03/28/2023 1:36 PM EST Program_ID:[id number] Access Code: [email or web address] URL: [email or web address] Date: 03-28-2023 Prepared By: Jewels Lopez Program Notes Exercises - Supine Quadricep Sets - 1 x daily - 7 x weekly - 2 - 5 - Supine Hip Adductor Stretch - 1 x daily - 7 x weekly - 2 - 5 * Jewels Lopez, PT - 03/28/2023 1:08 PM EST Episode Visit Count: 1 Therapist That Will Accept/Oversee The Plan Of Care: Jewels Lopez Start of Care Date: 03/28/23 Onset Date: 09/25/22 Plan of Care Certification Date: 03/28/23 Next Certification Due Date: 05/02/23 Patient Identified by Name and Date of : Yes REHABILITATION AND SPORTS THERAPY PHYSICAL THERAPY EVALUATION PLAN OF CARE: Assessment: Beverly Givens presents with diagnosis of trochanteric bursitis of left hip, primary OA of right hip, and morbid obesity that interferes with sitting, walking (intermittent activities) .She presents with impairments in ADL's, balance, flexibility, gait, independence in exercise, jointmobility, overall function, patient reported outcome measures, posture, range of motion, strength, symptom management, and tissue tenderness. PROMIS (Patient-Reported Outcomes Measurement InformationSystem) scores were reviewed and physical function domain identified as a rehabilitation concern. Prognosis for therapy is Fair due to: limited compliance with previous therapy, chronic nature of impa irments, limited tolerance to activity, poor understanding of deficits, decreased motivation, history of poor adherence with medical recommendations, clinical presentation . She will benefit from skilled therapy services to meet the goals established for this plan of care as noted below. Classification Low Back Pain Subgroup Classification: Graded activity subgroup: recommended visits 12. Graded Activity Subgroup Classification based on: maladaptive psychosocial factors, exam findings suggestive of central sensitization Goals for Episode of Care: created on 03/28/23 through 05/09/23 [place] in home exercise program. Patient will decrease pain rating by 2 points to meet minimal clinical important difference for numeric pain rating scale. Patient will increase PROM of BLE knee extension in the seated position to 0 degrees to allow pt toto improve postural alignment, to improve performance of ADLs, and to improve gait mechanics / gaitpattern . Perform walking and standing x 30 - 45 minutes with decreased report of symptoms/pain in 6 weeks. Improve postural awareness. Normal gait. Reciprocal stair negotiation. Patient Goals: "to get that so it doesn't hurt." Planned Interventions, Frequency, and Duration: Current Frequency: 1x/week Duration: 6 weeks Total Number of Visits Planned: 6 Planned Treatment Interventions: Therapeutic exercise (66045), Neuromuscular re- education (58603), Manual therapy (89797), Therapeutic activities (05989), Self- jail management (13410), Gait Training (70865) Patient demonstrates fair understanding of plan of care and treatment. The above goals and plan of care were discussed and agreed upon by patient/family. SUBJECTIVE: for right hip pain that onset Spring 2022. No injury. R hook lying R hip adductor stretch produces symtoms in the anterior right hip. Pt. reports history of R hip dislocation 2-3 times. Pt. has been hospitalized and placed in a cast for the right hip. She explains that she took it off. She expresses to PT that she hasn't been pleased with multiple providers. Pt. discusses at length that she knowsother factors of her health impact her functional mobility. Pt. admits she has difficulty with the nutrition aspect of her health. She has been through AA and sober for many years. She emphasizes sheknows how to change her lifestyle/behaviors. She is not interested in surgery for the right hip. She does not want to come to additional PT visits. She just wants some helpful stretches today. Patient Goals: "to get that so it doesn't hurt." Functional Limitations: sitting, walking (intermittent activities) Prior Level of Function: Independent without limitations Relevant History Past Relevant Medical Conditions: Fibromyalgia Past Relevant Surgical Conditions: Total Knee Replacement-Left, Total Knee Replacement-Right, TotalHip Replacement-Left Employment: Retired Intake Information: Prescription present Previous Treatment: None, TENS ("meloxicam - pt. reports this helps.") Falls Interview: No positive findings with falls interview Red Flags Vertebral Fracture Red Flags: Female, Age >70 Vertebral Fracture Clinical Reasoning: Proceed with caution due to the above (1- 2) risk factors Abdominal Aortic Aneurysm Red Flags: Age >60 Abdominal Aortic Aneurysm Clinical Reasoning: Proceed with caution Cancer Red Flags: Age >50 or <20 Cancer Clinical Reasoning: Proceed with caution Infection Clinical Reasoning: No identified risk factors. Cauda Equina Syndrome Clinical Reasoning: No identified risk factors. Red Flags - Cervical Cancer Red Flags: Age >50 or <20 Cancer Clinical Reasoning: Proceed with caution Infection Clinical Reasoning: No identified risk factors. Spine History Pain is Worse Always: Sitting, Standing, Walking, Prolonged positions Pain is Better Always: No position, On the Move Pain: Pain Pain Level: 2 Pain Location: Hip - Right Description: ("feels like it has a lot of arthritis.") Post Treatment Pain Post Treatment Pain Level: Better Post Treatment Pain Location: Hip - Right PROMIS Scales Higher is Better 03/28/2023 Phys Func - Score 42 (mild dysfunction) Phys Func - Percentile 21 % Self-Eff Symptom - Score 54 (Average) Self-Eff Symptom - Percentile 66 % T-scores: mean of general population = 50. 5 points is clinically meaningfully difference Percentiles provide an indication of how the patient's score ranks in relation to the general population. Higher percentile rankings indicate better function/quality of life. 50th percentile is the average of the general population and indicates half of respondents had a worse score. OBJECTIVE MEASURES WITH LEVEL OF FUNCTION: Posture / Alignment Posture: Decreased lumbar lordosis Hip Observations R Hip Palpation Tenderness: ASIS (Anterior superior iliac spine) Sensation - Lower Extremity LE Light Touch Sensation: Grossly Intact Sensation - Lumbar Sensation: Grossly Intact Lumbar Spine AROM Lumbar Flexion: Normal Lumbar Extension: Major limitation Lumbar R Side [place]: Moderate limitation Lumbar L Side [place]: Moderate limitation Lumbar R Side-Bend: Moderate limitation Lumbar L Side-Bend: Produces Lumbar R Rotation: Normal Lumbar L Rotation: Normal Lumbar Spine AROM Comments: denies concordant R hip symptoms with each lumbar spine movement LE AROM R Hip Flexion: 110 Degrees R Knee Flexion: -15 Degrees L Knee Extension: -5 Degrees LE Strength R Hip Flexion (L2): 5/5 R Hip Internal Rotation: 5/5 R Hip External Rotation: 5/5 L Hip Extension: 5/5 L Hip Internal Rotation: 5/5 L Hip External Rotation: 5/5 Special Tests - Hip and Spine Hip and Spine Special Tests: DIONI Test, FADDIR Test, Scour Test, Active SLR, SLR Test SLR Test: Left Negative, Right Negative DIONI Test: Right Positive, Left Negative FADDIR Test: Right Positive, Left Negative Scour Test: Right Positive, Right Negative Active SLR: Left Negative, Right Negative Gait Gait: Modified Independent Gait Distance (feet): 50 Gait Device: Cane Gait Deviations: General Deviations General Deviations/Observations: Wide base of support, Lateral sway increased, Non-functional gait speed, Shuffling Gait, Trunk Control Decreased, Step length decreased Education: Education Learning Preferences: Demonstration, Explanation, Performance, Printed Materials Barriers: Desire and Motivation Learning/educational needs: Plan of Care, Home exercise program, Gait Training, Posture, Safety, Lifestyle changes Education Provided: Yes, see treatment interventions for education provided Education Provided To: Patient Education Mode/Type: Demonstration, Explanation/Discussion, Literature/Printed Materials, Performance Response to Education/Teach Back: States/Identifies, Return Demonstration TREATMENT: PT Treatment Interventions: Therapeutic Exercise, Self-Long-Term Management Evaluation Therapeutic Exercise: 1: Supine Quadricep Sets - 1 x daily - 7 x weekly - 2 sets - 5 reps - 5 hold - Supine Hip Adductor Stretch - 1 x daily - 7 x weekly - 2 sets - 5 reps - 10 hold 2: Supine Hip Adductor Stretch - 1 x daily - 7 x weekly - 2 sets - 5 reps - 10 hold Skilled Intervention: Patient was educated in proper exercise technique and purpose for exercises. Skilled judgment was used in selection of appropriate interventions. Provided written instruction for home exercise program to facilitate proper performance and compliance. Correct performance of therapeutic exercises was facilitated with verbal, visual, and tactile cuing. Educated patient on rationale for performing exercises in regards to decreasing fatigue , increase ease of ADL, and ROM and function . Patient education as noted. Self-Long-Term Management: 1: encouraged continued visits for optimal benefit from PT 2: discussed pt. demonstrates limited joint mobility and consistent completion of exercises would be required to resolve this -- pt. understands this 3: PT strongly encourages continued consistent visits, but recognizes and respects pt. right to refuse consistent PT visits. Skilled Intervention: Skilled judgment in the selection of proper modification for activity of daily living/home management based on clinical presentation, deficits, and needs. Reviewed patient specific diagnosis in relation to activities of daily living/home management. Activity progression based on professional judgement. Reviewed and educated patient on additions/changes for home program as noted above with an (*). Provided written instruction for home program to facilitate proper performance and compliance. Correct performance of home program was facilitated with verbal, visual, and tactile cueing. Billing * Evaluation Low Complexity: 1 Unit Therapeutic Exercise Treatment Minutes: 10 Self-Care/Home Management Treatment Minutes: 15 Skilled Treatment Time Minutes (timed and untimed codes): 45 Total Session Time (minutes): 45 Session Start Time : 1300 Session Stop Time : 1345 Jewels Lopez, PT documented in this encounterDay[facility]11-[facility]23 Miscellaneous Notes* Telephone Encounter - Naty Echols LPN - 03/21/2023 8:43 AM EST Spoke with pt and information listed below given. Pt verbalizes understanding. Naty Echols LPN * Telephone Encounter - Frieda Sam LPN - 03/19/2023 2:34 PM EST Left message for patient to call office. * Telephone Encounter - Luis M Johnson MD - 03/19/2023 1:00 PM EST Let patient know order for stool study placed so can come in and get kit. * Telephone Encounter - Naty Echols LPN - 03/19/2023 11:15 AM EST Order for stool care is not showing up for the lab to pull. It is listed in the labs to do but doesnot have any dates on it. Please resubmit and let pt know so she can come in and knot picker cloth the kit. Naty Echols LPN documented in this encounterDayton [facility]11-09-2023 History of Present illness Narrative* Isabel Bhatti Mammo Tech - 03/20/2023 2:10 PM EST Radiology Service Progress Note PATIENT NAME: Beverly Givens DATE OF SERVICE: March 20, 2023 TIME: 1:55 PM PATIENT IDENTITY VERIFICATION COMPLETED USING TWO (2) IDENTIFIERS: Name and Date of confirmedby patient verbally. FALL SCREENING: Has the patient had 2 falls in the last year or 1 fall with injury or currently using an Ambulatory Assistive Device (Walker, Cane, Wheelchair, Crutches, etc.)? No PATIENT GENDER DATA: Female. status: : No status: NO. PATIENT RELEVANT IMPLANT DATA REVIEWED: Not Applicable RADIOLOGY DEPARTMENT: Mammography PERIPHERAL IV DATA: Not applicable SIGNED BY: Gunnar Mahoney March 20, 2023 1:55 PM documented in this encounterDayton [facility]11-07-2023 History of Present illness Narrative* Katlyn Almanza MA - 03/18/2023 2:56 PM EST Patient notified via my chart. Per note below. Katlyn Almanza MA * Luis M Johnson MD - 03/18/2023 1:08 PM EST Let patient know stool test and labs were placed and should not be done until on or after 11/24/203so they can be reviewed at her appt on 04/15/2023. * Teddy Coronel - 03/18/2023 11:10 AM EST DPOPULATION HEALTH NAVIGATION OUTREACH Action/FYI 03/18/23 Patient returned call from 09/10/22 Outreach. Since initial outreach patient has been scheduled for mammogram. Patient declined scheduling colonoscopy but would like to have FOBT kit- sending request to PCP (using dot phrase). Patient also agreeable to having HgBA1C lab, inquiring if PCP would also like Creatinine checked. Sending message to PCP. Patient is requesting a message via [email or web address] when labs are signed, as she would like to do a walk in. *HgBA1C order pending, sent to PCP to review and file* Patient Identified by Name and : YES, via phone Outreach Outcome/Action Spoke to patient / parent / legal guardian: No action required (information or reminder only) Did you use a PCP flex slot to schedule this appointment? N/A Reason for Outreach Care Gap or Scheduling/Wellness visits Payer: Payor: [employer] MEDICARE / Plan: [employer] MEDICARE HMO / Product Type: HMO / Care Gap Reviewed:: Breast Cancer screening Colorectal Cancer Screening HBA1C Reminder: Reminder note to check Health Maintenance for items below Health Maintenance items due: Hepatitis B Vaccine(1 of 3 - Risk 3-dose series) Never done RSV Vaccine(1 - 1-dose 60+ series) Never done Mammogram Screening due on 10/23/2022 Covid-19 Vaccine(24 season) due on 01/10/2023 Colorectal Cancer Screening due on 04/23/2023 Navigation Signature: Teddy Pollard Population Health Navigator March 18, 2023 11:10 AM documented in this encounterDayton [facility]11-06-2023 History of Present illness Narrative* Stormy Hamilton PA-C - 03/17/2023 1:25 PM EST Stormy Hamilton PA-C Department of Orthopaedics Orthopaedics [address] [address] Dept: [phone] Dept March 17, [address] Luis M Johnson for an opinion regarding right hip OA. My final recommendations will be communicated back to the requesting physician by way of shared Medical record or letter to requesting physician via US mail. CHIEF COMPLAINT: New and Pain of the Right Hip Ms. Beverly Givens is a 72 year old female who presents with right lateral hip pain which started bothering her about 6 months ago. She has a sensation as though something is catching in the hip. Pain is a 3 out of 10 that is worse at night. She is afraid that she may fall. She takes meloxicam on a regular basis, the meloxicam was not helpful for her her hip pain. She is status post a left totalhip arthroplasty with Dr. Gonzalez "years ago". Patient is also status post bilateral total knee arthroplasty with Dr. Byers. She tells me that after she quit smoking and her minerva has been quite sedentary, she has discussed weight loss with her primary care provider, it sounds like she also saw dietitian but was unhappy with that provider. ASSESSMENT: M70.62 Trochanteric bursitis of left hip (primary encounter diagnosis) M16.11 Primary osteoarthritis of right hip E66.01 Morbid obesity (HCC) PLAN: She has some mild right hip osteoarthritis but most of her pain seems to be coming from hip bursitis. We discussed getting her into physical therapy to put together a stretching program for herhip bursitis. Offered to send her to a dietitian or to have her see bariatrics to discussed weight loss. We discussed that the longevity of her total hip and total knee replacements may be affected by her weight. We also discussed that she can slow the progression of arthritis in her right hip if she does lose weight. Ms. Beverly Givens was advised as to contrast therapies and/or to take analgesics/anti-inflammatories as needed and all contraindications were reviewed. OBJECTIVE: Ms. Beverly Givens is a pleasant 72 year old in no apparent distress. Gen:Ht 5' 6" (1.68m) Wt 306 lb (138.8kg) BMI 49.41 kg/(m^2). nl development, obese, no deformities ENT: Normocephalic, normal hearing, moist mucosa CV: Pulses:DP/PT= 2+ and symmetric, capillary refill < 2 secs, no peripheral edema/varicosities Skin: no rash, bruising or lesions. Good turgor. Psych: cooperative and appropriate, alert and oriented x 3, good mood and affect. Musculoskeletal: HIP EXAM: Right: ROM: Extension: full extension Flexion: 90 degrees Internal Rotation: 20 degrees External Rotation: 25 degrees Abduction: 25 degrees Adduction: 25 degrees Strength: Abduction 5/5 and Flexion 5/5 Palpation: Tenderness over right greater trochanter Neurovascular Status: Sensation Intact, Moves foot and ankle up & down, and 2+ dorsalis pedis Imaging: IMPRESSION: Mild right hip osteoarthritis. Scientific Research Associate: CATHY Transcribe Date/Time: Oct 23 2022 9:17A Dictated by : ROBERT ARMENTA MD This examination was interpreted and the report reviewed and electronically signed by: ROBERT ARMENTA MD on Oct 23 2022 9:19AM EST Results-Findings * * *Final Report* * * DATE OF EXAM: Oct 21 2022 2:13PM WRX [id number] - XR HIP 3V PELV+ AP/LAT RT / PROCEDURE REASON: Pain in right hip * * * * Physician Interpretation * * * * TITLE: XR HIP 3V PELV+ AP/LAT RT CLINICAL INDICATION: Hip pain TECHNIQUE: AP radiograph of the pelvis and AP/frog leg lateral radiographs of the right hip COMPARISON: None FINDINGS: No acute fracture or dislocation identified. Mild right hip osteoarthritis with mild joint space narrowing, acetabular eburnation and small marginal osteophyte formation. Status post total left hip replacement without radiographic evidence of hardware complications. Degenerative changes in the visualized lower lumbar spine. Hypertrophic change about the right anterior superior iliac spine. Result History XR HIP GENERAL 3V PELV/AP/LAT RIGHT (Order #[id number]) on 10/23/2022 - Order Result History Report Supporting Subjective Information Below: Past Surgical History: PAST SURGICAL HISTORY Procedure Laterality Date ARTHROSCOPY KNEE DIAGNOSTIC W/WO SYNOVIAL BX SPX Arthroscopy, left knee ARTHRP ACETBLR/PROX FEM PROSTC AGRFT/ALGRFT left Hip replacement, total ARTHRP KNE CONDYLE&PLATU MEDIAL&LAT COMPARTMENTS 05/31/13 Knee replacement, total bilateral COLONOSCOPY FLX DX W/COLLJ SPEC WHEN PFRMD 03/03/2013 Colonoscopy, repeat 5 yrs DILATION & CURETTAGE DX&/THER NONOBSTETRIC Dilation & curettage ESOPHAGOGASTRODUODENOSCOPY TRANSORAL DIAGNOSTIC 03/03/13 EGD EXC CYST/ABERRANT BREAST TISSUE OPEN 1/> LESION 07/19/09 Exc upper inner left breast SC mass HYSTEROSCOPY, DIAGNOSTIC (SEPARATE Hysteroscopy Medications: Current Outpatient Medications Medication Sig cyclobenzaprine (FLEXERIL) 10 mg tablet Take 1 tablet by mouth twice daily as needed. lisinopril (ZESTRIL) 30 mg tablet Take 1 tablet by mouth once daily. pantoprazole DR (PROTONIX) 20 mg tablet take 1 tablet daily 1/2 hour before breakfast on an empty stomach amLODIPine (NORVASC) 10 mg tablet Take 1 tablet by mouth once daily. glimepiride (AMARYL) 4 mg tablet Take 1 tablet by mouth twice daily with meals. atorvastatin (LIPITOR) 40 mg tablet Take 1 tablet by mouth once daily. busPIRone (BUSPAR) 15 mg tablet Take 1 tablet by mouth twice daily. FLUoxetine (PROZAC) 20 mg capsule Take 2 capsules by mouth once daily. metFORMIN ER (GLUCOPHAGE XR) 500 mg 24 hr tablet Take 2 tablets by mouth twice daily. pioglitazone (ACTOS) 45 mg tablet Take 1 tablet by mouth once daily. meloxicam (MOBIC) 15 mg tablet Take 1 tablet by mouth once daily. With food. blood sugar diagnostic (BLOOD GLUCOSE TEST) test strip Test blood sugar(s) 2 times daily. Dx: OtherDM Code E11.29 Insulin: No A1c 7.5% 09/05/2021 fluticasone (FLONASE) 50 mcg/actuation nasal spray Use 2 Sprays in each nostril once daily. Rinse mouth after use. Lancets lancets Test blood sugar(s) 2 times daily. Dx: Other DM Code 11.29 Insulin: No, A1c 7.5% 09/05/2021 albuterol HFA (PROVENTIL HFA, VENTOLIN HFA) 90 mcg/actuation inhaler Inhale 2 Puffs as instructed every 4 hours as needed. meclizine (ANTIVERT) 25 mg tab Take 1 tablet by mouth every 6 hours as needed (dizziness). cholecalciferol (VITAMIN D) 1,000 unit tab tablet Take 1 tablet by mouth once daily. Take 4 tabletsdaily Ascorbic Acid (VITAMIN C) 1,000 mg tablet Take 1 tablet by mouth once daily. Multivitamin capsule Take 1 capsule by mouth once daily. bifidobacteri bifid.and longum (FLORAJEN BIFIDOBLEND) 460 mg (9-1 bill.cell) cap Take 1 capsule by mouth once daily. aspirin, enteric coated (ADULT ASPIRIN REGIMEN) 81 mg EC tablet Take 1 tablet by mouth once daily. omega-3 fatty acids 1,000 mg cap Take 2 capsules by mouth once daily. COMPOUNDED PRESCRIPTION Compression stockings, thigh high 15-20mmHg Dx: leg edema No current facility-administered medications for this visit. Allergies: Famciclovir, Fentanyl, Lamictal [Lamotrigine], Lyrica [Pregabalin], Oxycontin [OxycodoneHcl], Wellbutrin [Bupropion Hcl], Atarax [Hydroxyzine], Niacin, and Prevacid [Lansoprazole] ROS: General (negative for fatigue, malaise, weight loss/gain) HEENT (negative for headache, earache, recent vision changes, sinus pain, sore throat) Respiratory (no recent shortness of breath, hemoptysis) CV (negative for chest tightness, palpitations) Musculoskeletal (see HPI) Psych (no depression, anxiety) This note was partially generated using [employer] voice recognition system, and there may be some incorrect words, spellings, and punctuation that were not noted in checking the note before saving. Stormy Hamilton PA-C * Stephanie Sky Ma - 03/17/2023 12:55 PM EST Patient presents with: Right Hip - New, Pain AMB ROOMING INTAKE FLOWSHEET DATA Pain Pain Level: 3 Pain Location: Generalized Description: Aching, Sore, Stiffness Duration Amount of Time: 50 Frequency: Intermittent Intervention/Comfort measure: Relaxation, Pillow support, Positioning Patient states she is having right lateral hip pain. States her pain started 6 months ago. Using a cane to ambulate due to her hip feels like something is catches and is afraid of falling. Taking Mobic for the pain and is effective. Patient had a Left YESSICA by Dr. Gonzalez years ago, and bilateral TKAby Dr. Byers in 2013. X-rays done on 10/21/22. documented in this encounterDay[facility]09-19-2023 Miscellaneous Notes* Telephone Encounter - Mary Ann Roger LPN - 01/28/2023 11:42 AM EDT Last OV 10/14/2022 Next OV 04/15/2023 * Telephone Encounter - Hermelinda Thomas - 01/28/2023 11:38 AM EDT Patient phones requesting refills as follows: Requested Prescriptions Pending Prescriptions Disp Refills lisinopril (ZESTRIL) 30 mg tablet 30 tablet 1 Sig: Take 1 tablet by mouth once daily. Please review and advise. Hermelinda Thomas documented in this encounterDayton [facility] Hospital08-18-2023 Miscellaneous Notes* Telephone Encounter - Bairon Collado LPN - 12/27/2022 1:14 PM EDT Last refill Norvasc 10/04/22 Qty: 30 with 2 refills Last refill Protonix 06/06/22 Qty: 90 with 1 refill MURRAY 10/14/22 NOV 04/15/23 Bairon Collado LPN * Telephone Encounter - Alicia Diaz - 12/27/2022 12:58 PM EDT Patient has been identified by name and date of : Yes Requested Prescriptions Pending Prescriptions Disp Refills pantoprazole DR (PROTONIX) 20 mg tablet 90 tablet 1 Sig: take 1 tablet daily 1/2 hour before breakfast on an empty stomach amLODIPine (NORVASC) 10 mg tablet 30 tablet 2 Sig: Take 1 tablet by mouth once daily. RX INSTRUCTIONS: Patient aware RX will be sent to pharmacy. No need to notify patient. Alicia Diaz documented in this encounterDayton [facility]06-13-2023 Miscellaneous Notes* Telephone Encounter - AUDREY Phillips - 10/22/2022 12:06 PM EDT Naomi spoke with patient and will mail out Healthcare POA and Living Will along with informational brochure. Patient notes that is all she needs at this moment from [facility]OMI. Patient reports that she will work on completing forms and bring in to be scanned to her chart. * Telephone Encounter - AUDREY Phillips - 10/14/2022 4:25 PM EDT Naomi called and left patient message requesting call back to discuss Advance Directives. documented in this encounterDayton [facility] Hospital06-12-2023 History of Present illness Narrative* Ceci Garcia RT([place]) - 10/21/2022 1:20 PM EDT Radiology Service Progress Note PATIENT NAME: Beverly Givens DATE OF SERVICE: October 22, 2022 TIME: 11:11 AM PATIENT IDENTITY VERIFICATION COMPLETED USING TWO (2) IDENTIFIERS: Name and Date of confirmedby patient verbally. FALL SCREENING: Has the patient had 2 falls in the last year or 1 fall with injury or currently using an Ambulatory Assistive Device (Walker, Cane, Wheelchair, Crutches, etc.)? No PATIENT GENDER DATA: Female. status: : No status: NO. PATIENT RELEVANT IMPLANT DATA REVIEWED: Not Applicable RADIOLOGY DEPARTMENT: General X-ray: Exam(s) Completed: Pelvis X-Ray: Pelvis with Hip Right PERIPHERAL IV DATA: Not applicable SIGNED BY: RT Aldair([place]) October 22, 2022 11:11 AM documented in this encounterDayton Oste[facility] Hospital06-05-2023 Instructions* Patient Instructions* Teddy Cox APRN.PERIOPERATIVE ASSISTANT - 10/14/2022 12:47 PM EDT Screening schedule The following prevention plan is recommended: ADVANCE DIRECTIVE DISCUSSION due on 05/12/2022 DIABETIC FOOT EXAM due on 10/10/2022 MAMMOGRAM due on 10/23/2022 WHAT YOU CAN DO TO PREVENT FALLS Many falls can be prevented. By making some changes, you can lower your chances of falling. Four things YOU can do to prevent falls for you* and your caregiver 1. Begin a regular exercise program Exercise is one of the most important ways to lower your chances of falling. It makes you stronger and helps you feel better. Exercises that improve balance and coordination (like Clay Chi) are the most helpful. Lack of exercise leads to weakness and increases your chances of falling. Ask your doctor or health care provider about the best type of exercise program for you. 2. Have your health care provider review your medicines Have your doctor or pharmacist review all the medicines you take, even [id number] medicines. As you get older, the way medicines work in your body can change. Some medicines, or combinations of medicines, can make you sleepy or dizzy andcan cause you to fall. 3. Have your vision checked Have your eyes checked by an eye doctor at least once a year. You may be wearing the wrong glasses or have a condition like glaucoma or cataracts that limits your vision. Poor vision can increase your chances of falling. 4. Make your home safer About half of all falls happen at home. To make your home safer: Remove things you can trip over (like papers, books, clothes, and shoes) from stairs and places where you walk. Remove small throw rugs or use double-sided tape to keep the rugs from slipping. Keep items you use often in cabinets you can reach easily without using a step stool. Have grab bars put in next to your toilet and in the tub or shower. Use non-slip mats in the bathtub and on shower floors. Improve the lighting in your home. As you get older, you need brighter lights to see well. Hang light-weight curtains or shades to reduce glare. Have handrails and lights put in on all staircases. Wear shoes both inside and outside the house. Avoid going barefoot or wearing slippers. For more information, contact: Centers for Disease Control and Prevention www.cdc.gov/injury * This information may not apply if you have certain medical conditions. documented in this encounterDayton Oste[facility] Hospital06-05-2023 History of Present illness Narrative* Teddy Cox APRN.CNP - 10/14/2022 12:43 PM EDT Beverly Givens is a 72 year old female here for a Medicare Subsequent Annual Wellness Visit Health Risk Assessment In general, health is: Good Concerns with balance:Several days Concerns with teeth or dentures:Several days [place] anxious, stressed, angry, irritable, lonely, isolated, or had thoughts of hurting themself: Not at all Has little interest or pleasure in doing things: Not at all Bothered by feeling down, depressed, or hopeless: Not at all Needs help with grocery shopping, cooking, housework, bathing, grooming, dressing, eating, sitting or standing, walking, using the toilet, handling finances, taking medications, using the telephone, or driving: No Following safety precautions in the home environment and vehicle: removed throw rugs from floors, installed grab bars in the bathroom, handrails in stairwells, having adequate lighting, wearing seatbelt at all times?: Yes Smokes cigarettes, vapes, or chew tobacco: No Eats healthy foods including fruits, vegetables, whole grains, and fiber-rich foods: Nearly every day Number of days per week engages in exercise: 0 days Average alcohol consumption: Never Current Providers Specialists: I have reviewed specialist-related care of the patient in the medical record. Medical/Family history review Reviewed and updated problem list, medical/surgical/family/social history, medications, and allergies. Opioid use review Patient is not currently using opioids. Depression screening Depression Screening PHQ-2 Score PHQ-9 Score 10/10/2021 0 - Depression screening tool completed and reviewed. Based on score and interview, patient is not at risk for depression. Screening tool discussed with patient, and I recommended no further interventionat this time. Cognitive screening Mini Cog Score: Score: 5 Cognitive screening reviewed and no further action needed (score 3-5) Functional Observation Was the patient's timed Up & Go test unsteady or ? 12 seconds? Yes Advance Care Planning End of Life planning discussed, including patient's advanced directive wishes: Yes Measurements BP 126/74 Pulse 110 Resp 16 Wt 304 lb (137.9kg) Visual acuity (required for Welcome to Medicare): follows with optometry/ophthalmology Hearing Evaluation: within normal limits Assessment/Plan - Counseled on healthy diet and regular exercise - Discussed need for and benefit of weight loss. BMI 49.07 kg/(m^2) - Fall avoidance - Mammogram recommended and ordered - Depression screening Chief Complaint Patient presents with: Medicare Wellness Exam HPI Beverly Givens is a 72 year old female who presents here today for Above Complaints.. Patient presents for annual wellness visit. Patient reports she is doing well but recently dropped her partial denture and is going to the dentist to have that fixed. Past medical history, appointments, medications, allergies reviewed. Previous Medical History PAST MEDICAL HISTORY Diagnosis Date Adjustment disorder 10/29/2011 Advance directive discussed with patient 10/10/2021 Discussed 10/2021 Arthritis of knee, right 12/23/2012 Arthritis of left knee 05/28/2013 BPV (benign positional vertigo), unspecified laterality 11/22/2019 Chronic pain of both shoulders 10/10/2021 Chronic pain syndrome 11/26/2015 Sees Chronic sacroiliac (SI) strain 08/27/2013 DDD (degenerative disc disease), lumbar 07/26/2014 Ex-smoker 03/17/2019 Quit 09/2018 Fibromyalgia 06/06/2009 Foot callus 11/29/2020 Gastroesophageal reflux disease without esophagitis 10/02/2016 Generalized anxiety disorder 03/13/2006 Generalized osteoarthrosis, unspecified site Glaucoma History of knee replacement procedure of right knee Hx of colonic polyp 08/19/2018 Hypertension, essential 04/12/2022 Low serum vitamin B12 10/10/2021 Lumbago 05/19/2015 Medicare annual wellness visit, subsequent 08/05/2017 last done: 11/22/19 Medical B eligibilty date 06/12/2016 Mixed hyperlipidemia 02/12/2005 WHIT (obstructive sleep apnea) 07/04/2010 Titration done 01/2013 IMPRESSION: 1. At a CPAP setting of 12 cmH2O, the apnea- hypopnea and arousal indices were normalized. At this setting, snoring was eliminated and the oxygen saturation was maintained above 90%. Of note, both REM and supine sleep were present when this setting was tested. 2. Abnormal sleep architecture likely due to respiratory events, PAP titration, first night effect. RECOMMENDATIONS: CPAP 12 cmH20 with humidification. INTERPRETING PHYSICIAN: David Wolfe MD PSG done @ [facility] 11. Complete report has been scanned into [employer]. Neurology procedures. Osteopenia 06/07/2008 Recurrent major depression in partial remission (HCC) 05/30/2005 Stasis dermatitis of right lower extremity due to peripheral venous hypertension 04/02/2016 Status post left hip replacement Previous Surgical History PAST SURGICAL HISTORY Procedure Laterality Date ARTHROSCOPY KNEE DIAGNOSTIC W/WO SYNOVIAL BX SPX Arthroscopy, left knee ARTHRP ACETBLR/PROX FEM PROSTC AGRFT/ALGRFT left Hip replacement, total ARTHRP KNE CONDYLE&PLATU MEDIAL&LAT COMPARTMENTS 05/31/13 Knee replacement, total bilateral COLONOSCOPY FLX DX W/COLLJ SPEC WHEN PFRMD 03/03/2013 Colonoscopy, repeat 5 yrs DILATION & CURETTAGE DX&/THER NONOBSTETRIC Dilation & curettage ESOPHAGOGASTRODUODENOSCOPY TRANSORAL DIAGNOSTIC 03/03/13 EGD EXC CYST/ABERRANT BREAST TISSUE OPEN 1/> LESION 07/19/09 Exc upper inner left breast SC mass HYSTEROSCOPY, DIAGNOSTIC (SEPARATE Hysteroscopy Family History FAMILY HISTORY Problem Relation Age of Onset Osteoporosis Mother Cancer Mother skin Colon Cancer Mother 88 Diabetes Father Cancer Sister breast other (Other) Other fibromyalgia Patient Allergies ALLERGIES Allergen Reactions Famciclovir Rash large vesicles of fingers (2 fingers) Fentanyl Mental Status Change patches Lamictal [Lamotrigi* Mental Status Change mental cloudy Lyrica [Pregabalin] Other: See Comments Increased depression Oxycontin [Oxycodon* Other: See Comments Anxiety, depression Wellbutrin [Bupropi* Intolerance Mental status change Atarax [Hydroxyzine] Mental Status Change Niacin Other: See Comments depression Prevacid [Lansopraz* Unknown Current Medications Current Outpatient Medications on File Prior to Visit Medication Sig amLODIPine (NORVASC) 10 mg tablet Take 1 tablet by mouth once daily. meloxicam (MOBIC) 15 mg tablet Take 1 tablet by mouth once daily. With food. cyclobenzaprine (FLEXERIL) 10 mg tablet Take 1 tablet by mouth twice daily as needed. lisinopril (ZESTRIL) 30 mg tablet Take 1 tablet by mouth once daily. blood sugar diagnostic (BLOOD GLUCOSE TEST) test strip Test blood sugar(s) 2 times daily. Dx: OtherDM Code E11.29 Insulin: No A1c 7.5% 09/05/2021 fluticasone (FLONASE) 50 mcg/actuation nasal spray Use 2 Sprays in each nostril once daily. Rinse mouth after use. glimepiride (AMARYL) 4 mg tablet Take 1 tablet by mouth twice daily with meals. pantoprazole DR (PROTONIX) 20 mg tablet take 1 tablet daily 1/2 hour before breakfast on an empty stomach atorvastatin (LIPITOR) 40 mg tablet Take 1 tablet by mouth once daily. busPIRone (BUSPAR) 15 mg tablet Take 1 tablet by mouth twice daily. FLUoxetine (PROZAC) 20 mg capsule Take 2 capsules by mouth once daily. metFORMIN ER (GLUCOPHAGE XR) 500 mg 24 hr tablet Take 2 tablets by mouth twice daily. pioglitazone (ACTOS) 45 mg tablet Take 1 tablet by mouth once daily. Lancets lancets Test blood sugar(s) 2 times daily. Dx: Other DM Code 11.29 Insulin: No, A1c 7.5% 09/05/2021 albuterol HFA (PROVENTIL HFA, VENTOLIN HFA) 90 mcg/actuation inhaler Inhale 2 Puffs as instructed every 4 hours as needed. meclizine (ANTIVERT) 25 mg tab Take 1 tablet by mouth every 6 hours as needed (dizziness). cholecalciferol (VITAMIN D) 1,000 unit tab tablet Take 1 tablet by mouth once daily. Take 4 tabletsdaily Ascorbic Acid (VITAMIN C) 1,000 mg tablet Take 1 tablet by mouth once daily. Multivitamin capsule Take 1 capsule by mouth once daily. bifidobacteri bifid.and longum (FLORAJEN BIFIDOBLEND) 460 mg (9-1 bill.cell) cap Take 1 capsule by mouth once daily. aspirin, enteric coated (ADULT ASPIRIN REGIMEN) 81 mg EC tablet Take 1 tablet by mouth once daily. omega-3 fatty acids 1,000 mg cap Take 2 capsules by mouth once daily. COMPOUNDED PRESCRIPTION Compression stockings, thigh high 15-20mmHg Dx: leg edema No current facility-administered medications on file prior to visit. 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 Lungs: Lungs clear to auscultation. No wheezing, rhonchi, rales.. Heart: RRR without murmur, gallop, or rubs. No ectopy. Abdomen: Normal abdominal exam, Abdomen soft, non-tender. Bowel sounds normal. No masses, organomegaly Peripheral Pulses: Normal. Health Maintenance List ADVANCE DIRECTIVE DISCUSSION due on 05/12/2022 DIABETIC FOOT EXAM due on 10/10/2022 MAMMOGRAM due on 10/23/2022 SHINGRIX VACCINE(2 of 3) due on 04/12/2023 HBA1C due on 04/03/2023 COLORECTAL CANCER SCREENING due on 04/23/2023 DILATED RETINAL EXAM due on 05/31/2023 ANNUAL PCP TEAM CHRONIC DISEASE VISIT due on 08/07/2023 BP CONTROLLED (<130/80) due on 08/07/2023 URINE ALBUMIN:CREATININE RATIO due on 10/02/2023 LDL CHOLESTEROL due on 10/02/2023 DTAP,TDAP,TD(2 - Td or Tdap) due on 01/29/2026 BONE DENSITY Completed INFLUENZA Completed HEPATITIS C SCREENING Completed COVID-19 VACCINE Completed PNEUMOCOCCAL: 65+ Completed Data reviewed Component Latest Ref Rng & Units 10/01/2022 WBC 3.70 - 11.00 k/uL 9.22 RBC 3.90 - 5.20 m/uL 4.49 Hemoglobin 11.5 - 15.5 g/dL 13.1 Hematocrit 36.0 - 46.0 % 40.6 MCV 80.0 - 100.0 fL 90.4 MCH 26.0 - 34.0 pg 29.2 MCHC 30.5 - 36.0 g/dL 32.3 RDW-CV 11.5 - 15.0 % 14.0 Platelet Count 150 - 400 k/uL 360 MPV 9.0 - 12.7 fL 9.4 Neut% % 50.5 Abs Neut (ANC) 1.45 - 7.50 k/uL 4.65 Lymph% % 40.1 Abs Lymph 1.00 - 4.00 k/uL 3.70 [place]% % 7.8 Abs [place] <0.87 k/uL 0.72 Eosin% % 0.8 Abs Eosin <0.46 k/uL 0.07 Baso% % 0.5 Abs Baso <0.11 k/uL 0.05 Immature Gran % % 0.3 IMMATURE GRANS (ABS) <0.10 k/uL 0.03 NRBC /100 WBC 0.0 Absolute nRBC <0.01 k/uL <0.01 DTYPE Auto Protein, Total 6.3 - 8.0 g/dL 7.9 Albumin 3.9 - 4.9 g/dL 4.6 Calcium 8.5 - 10.2 mg/dL 10.5 (H) Bilirubin, Total 0.2 - 1.3 mg/dL 0.4 Alkaline Phosphatase 34 - 123 U/L 79 AST 13 - 35 U/L 35 ALT 7 - 38 U/L 35 Glucose 74 - 99 mg/dL 200 (H) BUN 7 - 21 mg/dL 14 Creatinine 0.58 - 0.96 mg/dL 0.67 Sodium 136 - 144 mmol/L 139 Potassium 3.7 - 5.1 mmol/L 4.5 Chloride 97 - 105 mmol/L 103 CO2 22 - 30 mmol/L 20 (L) Anion Gap 9 - 18 mmol/L 16 eGFR >=60 mL/min/1.73m 94 Color Yellow Yellow Clarity Clear Clear Glucose, Urine Trace, Negative 2+ (A) Bilirubin, Urine Negative Negative Ketones, Urine Trace, Negative Negative Specific [place], Ur 1.005 - 1.030 1.016 Hemoglobin/Blood,Ur Negative, Trace Negative pH, Urine 5.0 - 8.0 6.0 Protein, Urine Trace, Negative Trace Urobilinogen Negative Negative Nitrites Negative Negative Leukest Negative, 25 [place]/uL Negative WBC, Urine 0-5 /HPF 0-5 /HPF RBC, Urine 0-3 /HPF 0-3 /HPF Epithelial Cells /HPF Few Hyaline Cast 0 /LPF 1-3 /LPF (A) Total Cholesterol, Nonfasting <200 mg/dL 166 Triglycerides, Nonfasting <150 mg/dL 145 HDL Cholesterol, Nonfasting >39 mg/dL 62 LDL Cholesterol, Nonfasting <100 mg/dL 75 Non HDL Cholesterol, Nonfasting <130 mg/dL 104 VLDL Cholesterol, Nonfasting <30 mg/dL 29 Total Chol/HDL Ratio, Nonfasting <5.10 mg/dL 2.68 LDL/HDL Ratio, Nonfasting <2.54 mg/dL 1.21 Creatinine, Ur Random (UCRR) 20.0 - 300.0 mg/dL 88.1 Albumin, Urine Random mg/L 29.1 Albumin/Creat Ratio <30 mg/g 33 (H) Hemoglobin A1C 4.3 - 5.6 % 7.3 (H) Estimated Average Glucose mg/dL 163 Vitamin B12 232 - 1,245 pg/mL 656 Magnesium 1.7 - 2.3 mg/dL 1.9 ASSESSMENT/PLAN: 1. Medicare annual wellness visit, subsequent - ICD9: V70.0, ICD10: Z00.00 (primary diagnosis) - Counseled on healthy diet and regular exercise - Calcium intake with supplements or by diet of 1000 mg/day for under 50, 1200- 1500 mg/day for 50+ - Discussed need and benefit for weight loss. BMI 49.07 kg/(m^2) - Mammogram ordered - exam recommended once yearly - Counseled patient on limiting alcohol intake to 1 drink per day - Depression screening tool completed and reviewed with patient. Based on score and interview, patient is not at risk for depression and recommended no further intervention at this time. - Follow up for annual exam in one year 2. Encounter for screening mammogram for malignant neoplasm of breast - ICD9: V76.12, ICD10: Z12.31 - Set up for mammogram, yearly mammogram recommended - Encouraged monthly BSE - Follow up for annual exam in one year. - MINI SCREENING 3. 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 Type 2 diabetes mellitus with microalbuminuria, unspecified whether long term care social worker insulin use (HCC) - ICD9: 250.40, 791.0, ICD10: E11.29, R80.9 - Controlled - Continue current medications - Blood glucose monitoring on a once daily schedule - Counseled on healthy diet and regular exercise - Discussed need for and benefit of weight loss. BMI 49.07 kg/(m^2) 5. Morbid obesity with body mass index (BMI) of 45.0 to 49.9 in adult (HCC) - ICD9: 278.01, V85.42,ICD10: E66.01, Z68.42 Stable - Behavioral intervention 6. Recovering alcoholic (HCC) - ICD9: 303.93, ICD10: F10.21 -Stable 7. Recurrent major depression in partial remission (HCC) - ICD9: 296.35, ICD10: F33.41 -Stable 8. Hypertension, essential - ICD9: 401.9, ICD10: I10 - Controlled - Continue current medications - Recommend home blood pressure monitoring, to bring results to next visit - Encouraged sodium restriction, DASH or Mediterranean diet - Recommend regular aerobic exercise - Discussed need for and benefit of weight loss. BMI 49.07 kg/(m^2) - Reviewed risks of hypertension and principles of treatment 9. Gastroesophageal reflux disease without esophagitis - ICD9: 530.81, ICD10: K21.9 - Discussed lifestyle modifications including losing weight, limiting caffeine, no meals three hours before sleep, and head of bed elevation - Continue treatment with Protonix QD 10. Generalized anxiety disorder - ICD9: 300.02, ICD10: F41.1 -Stable 11. Mixed hyperlipidemia - ICD9: 272.2, ICD10: E78.2 - Controlled - Continue current medications - Counseled on healthy diet and regular exercise 12. WHIT (obstructive sleep apnea) - ICD9: 327.23, ICD10: G47.33 -Using CPAP nightly 13. Fibromyalgia - ICD9: 729.1, ICD10: M79.7 -Improved with warmer weather Teddy Cox APRN.CNP documented in [facility]Day[facility] Instructions* Patient Instructions* Teddy Cox APRN.CNP - 08/06/2022 11:45 AM EDT Continue current medications Follow up as scheduled documented in this encounterDayton [facility]03-28-[facility]23 History of Present illness Narrative* Teddy Cox APRN.CNP - 08/06/2022 11:33 AM EDT Chief Complaint Patient presents with: Follow Up HPI Beverly Givens is a 72 year old female who presents here today for Above Complaints.. Patient presents for bp check. Patient's amlodipine was increased to 10mg on 07/09/2022. Patient reports she is tolerating this medication well and denies dizziness and headache. Past medical history, appointments, medications, allergies reviewed. Previous Medical History PAST MEDICAL HISTORY Diagnosis Date Adjustment disorder 10/29/2011 Advance directive discussed with patient 10/10/2021 Discussed 10/2021 Arthritis of knee, right 12/23/2012 Arthritis of left knee 05/28/2013 BPV (benign positional vertigo), unspecified laterality 11/22/2019 Chronic pain of both shoulders 10/10/2021 Chronic pain syndrome 11/26/2015 Sees Chronic sacroiliac (SI) strain 08/27/2013 DDD (degenerative disc disease), lumbar 07/26/2014 Ex-smoker 03/17/2019 Quit 09/2018 Fibromyalgia 06/06/2009 Foot callus 11/29/2020 Gastroesophageal reflux disease without esophagitis 10/02/2016 Generalized anxiety disorder 03/13/2006 Generalized osteoarthrosis, unspecified site Glaucoma History of knee replacement procedure of right knee Hx of colonic polyp 08/19/2018 Hypertension, essential 04/12/2022 Low serum vitamin B12 10/10/2021 Lumbago 05/19/2015 Medicare annual wellness visit, subsequent 08/05/2017 last done: 11/22/19 Medical B eligibilty date 06/12/2016 Mixed hyperlipidemia 02/12/2005 WHIT (obstructive sleep apnea) 07/04/2010 Titration done 01/2013 IMPRESSION: 1. At a CPAP setting of 12 cmH2O, the apnea- hypopnea and arousal indices were normalized. At this setting, snoring was eliminated and the oxygen saturation was maintained above 90%. Of note, both REM and supine sleep were present when this setting was tested. 2. Abnormal sleep architecture likely due to respiratory events, PAP titration, first night effect. RECOMMENDATIONS: CPAP 12 cmH20 with humidification. INTERPRETING PHYSICIAN: David Wolfe MD PSG done @ [facility] AHI 11. Complete report has been scanned into [facility]. Neurology procedures. Osteopenia 06/07/2008 Recurrent major depression in partial remission (HCC) 05/30/2005 Stasis dermatitis of right lower extremity due to peripheral venous hypertension 04/02/2016 Status post left hip replacement Previous Surgical History PAST SURGICAL HISTORY Procedure Laterality Date ARTHROSCOPY KNEE DIAGNOSTIC W/WO SYNOVIAL BX SPX Arthroscopy, left knee ARTHRP ACETBLR/PROX FEM PROSTC AGRFT/ALGRFT left Hip replacement, total ARTHRP KNE CONDYLE&PLATU MEDIAL&LAT COMPARTMENTS 05/31/13 Knee replacement, total bilateral COLONOSCOPY FLX DX W/COLLJ SPEC WHEN PFRMD 03/03/2013 Colonoscopy, repeat 5 yrs DILATION & CURETTAGE DX&/THER NONOBSTETRIC Dilation & curettage ESOPHAGOGASTRODUODENOSCOPY TRANSORAL DIAGNOSTIC 03/03/13 EGD EXC CYST/ABERRANT BREAST TISSUE OPEN 1/> LESION 07/19/09 Exc upper inner left breast SC mass HYSTEROSCOPY, DIAGNOSTIC (SEPARATE Hysteroscopy Family History FAMILY HISTORY Problem Relation Age of Onset Osteoporosis Mother Cancer Mother skin Colon Cancer Mother 88 Diabetes Father Cancer Sister breast other (Other) Other fibromyalgia Patient Allergies ALLERGIES Allergen Reactions Famciclovir Rash large vesicles of fingers (2 fingers) Fentanyl Mental Status Change patches Lamictal [Lamotrigi* Mental Status Change mental cloudy Lyrica [Pregabalin] Other: See Comments Increased depression Oxycontin [Oxycodon* Other: See Comments Anxiety, depression Wellbutrin [Bupropi* Intolerance Mental status change Atarax [Hydroxyzine] Mental Status Change Niacin Other: See Comments depression Prevacid [Lansopraz* Unknown Current Medications Current Outpatient Medications on File Prior to Visit Medication Sig amLODIPine (NORVASC) 10 mg tablet Take 1 tablet by mouth once daily. lisinopril (ZESTRIL) 30 mg tablet Take 1 tablet by mouth once daily. fluticasone (FLONASE) 50 mcg/actuation nasal spray Use 2 Sprays in each nostril once daily. Rinse mouth after use. glimepiride (AMARYL) 4 mg tablet Take 1 tablet by mouth twice daily with meals. pantoprazole DR (PROTONIX) 20 mg tablet take 1 tablet daily 1/2 hour before breakfast on an empty stomach atorvastatin (LIPITOR) 40 mg tablet Take 1 tablet by mouth once daily. busPIRone (BUSPAR) 15 mg tablet Take 1 tablet by mouth twice daily. FLUoxetine (PROZAC) 20 mg capsule Take 2 capsules by mouth once daily. metFORMIN ER (GLUCOPHAGE XR) 500 mg 24 hr tablet Take 2 tablets by mouth twice daily. pioglitazone (ACTOS) 45 mg tablet Take 1 tablet by mouth once daily. cyclobenzaprine (FLEXERIL) 10 mg tablet Take 1 tablet by mouth twice daily as needed. meloxicam (MOBIC) 15 mg tablet Take 1 tablet by mouth once daily. With food. blood sugar diagnostic (BLOOD GLUCOSE TEST) test strip Test blood sugar(s) 2 times daily. Dx: OtherDM Code E11.29 Insulin: No A1c 7.5% 09/05/2021 Lancets lancets Test blood sugar(s) 2 times daily. Dx: Other DM Code 11.29 Insulin: No, A1c 7.5% 09/05/2021 albuterol HFA (PROVENTIL HFA, VENTOLIN HFA) 90 mcg/actuation inhaler Inhale 2 Puffs as instructed every 4 hours as needed. meclizine (ANTIVERT) 25 mg tab Take 1 tablet by mouth every 6 hours as needed (dizziness). cholecalciferol (VITAMIN D) 1,000 unit tab tablet Take 1 tablet by mouth once daily. Take 4 tabletsdaily Ascorbic Acid (VITAMIN C) 1,000 mg tablet Take 1 tablet by mouth once daily. Multivitamin capsule Take 1 capsule by mouth once daily. bifidobacteri bifid.and longum (FLORAJEN BIFIDOBLEND) 460 mg (9-1 bill.cell) cap Take 1 capsule by mouth once daily. aspirin, enteric coated (ADULT ASPIRIN REGIMEN) 81 mg EC tablet Take 1 tablet by mouth once daily. omega-3 fatty acids 1,000 mg cap Take 2 capsules by mouth once daily. COMPOUNDED PRESCRIPTION Compression stockings, thigh high 15-20mmHg Dx: leg edema No current facility-administered medications on file prior to visit. 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 Health Maintenance List BP CONTROLLED (<130/80) Never done ADVANCE DIRECTIVE DISCUSSION due on 05/12/2022 URINE ALBUMIN:CREATININE RATIO due on 09/05/2022 MAMMOGRAM due on 10/23/2022 SHINGRIX VACCINE(2 of 3) due on 04/12/2023 HBA1C due on 10/08/2022 DIABETIC FOOT EXAM due on 10/10/2022 LDL CHOLESTEROL due on 04/10/2023 COLORECTAL CANCER SCREENING due on 04/23/2023 DILATED RETINAL EXAM due on 05/31/2023 ANNUAL PCP TEAM CHRONIC DISEASE VISIT due on 07/09/2023 DTAP,TDAP,TD(2 - Td or Tdap) due on 01/29/2026 BONE DENSITY Completed INFLUENZA Completed HEPATITIS C SCREENING Completed COVID-19 VACCINE Completed PNEUMOCOCCAL: 65+ Completed ASSESSMENT/PLAN: 1. Hypertension, essential - ICD9: 401.9, ICD10: I10 - good control - Continue current medication(s) - Encouraged dietary sodium restriction/DASH diet - Recommended regular aerobic exercise. - Recommend home blood pressure monitoring, to bring results in on next visit - Goal of BP <130/80 Teddy Cox APRN.CNP documented in this encounterDay[facility]02[facility]28-[facility]23 Instructions* Patient Instructions* Teddy Cox APRN.CNP - 07/09/2022 12:51 PM EST Increase amlodipine Follow up in 4 weeks CHOOSING PROTEIN Basic protein needs each day. (1 gm/kg) Protein foods include both animal (meat, poultry, seafood, and eggs) and plant (beans, peas, soy products, nuts, and seeds) sources. We all need protein to build lean muscle mass -- and there is someevidence that eating protein several times a day will make amino acids available during your workout. Vary your protein food choices: Eat a variety of foods from the protein group each week. [place] with main dishes made with beans or peas, nuts, soy and seafood. Eat seafood in place of meat or poultry twice a week. Include some fish that are higher in oils andlow in mercury, such as salmon, trout and cooney. Milk (8 grams), yogurt (12 grams) and Armenian yogurt (18 grams) contain protein. Choose lean or low-fat cuts of meat like round or sirloin and ground beef that is at least 90% lean. Trim or drain fat from meat and remove poultry skin. 3 ounces of meat, fish, poultry (about the size of a deck of cards) contains about 24 grams of protein. Have an egg: One egg a day, on average doesn't increase risk for heart disease, so make eggs a partof your weekly choices. One medium egg contains 6 grams of protein. Only the egg yolk contains cholesterol and satruated fat, so have as many egg whites as you want. Eating a healthy breakfast, especially one high in protein, increases satiety and reduces hunger throughout the day. Try a hard-boiled egg, peanut butter on whole grain toast, or add some nuts to your oatmeal or cereal. (2 tbsp of peanut butter is about 8 grams of protein) Eat plant protein foods more often. Try beans and peas (kidney, navy, black, teague, or white beans;splt peas; chickpeas; hummus), soy products (tofu, tempeh, veggie burgers), nuts and seeds. They are naturally low in saturated fat and high in fiber. (1/2 cup of beans is about 8 grams of protein) Choose unsalted nuts and seeds as a snack, on salads or in main dished to replace meat or poultry. Small portions of nuts will do - they are a concentrated source of calories. 1/2 cup nuts/seeds is about 15 grams of protein. Try grilling, broiling, roasting, or baking -- they don't add extra fat. Avoid breading meat, poultry or fish as this adds calories. Make a healthy sandwich: Choose turkey, roast beef, canned tuna or salmon, or peanut butter for sandwiches. Many deli meats, such as regular bologna or salami, are high in fat and sodium Make these occasional treats only. [place] Instant Breakfast, mixed with milk, contains 13 grams of protein a serving. documented in this encounterDay[facility]02-28-2023 History of Present illness Narrative* Teddy Cox APRN.CNP - 07/09/2022 12:43 PM EST Chief Complaint Patient presents with: Follow Up HPI Beverly Givens is a 72 year old female who presents here today for Above Complaints.. Patient presents for BP check. Patient was seen 4 weeks ago and was initiated on amlodopine. Patient states she is feeling well and tolerating medication well. Past medical history, appointments, medications, allergies reviewed. Previous Medical History PAST MEDICAL HISTORY Diagnosis Date Adjustment disorder 10/29/2011 Advance directive discussed with patient 10/10/2021 Discussed 10/2021 Arthritis of knee, right 12/23/2012 Arthritis of left knee 05/28/2013 BPV (benign positional vertigo), unspecified laterality 11/22/2019 Chronic pain of both shoulders 10/10/2021 Chronic pain syndrome 11/26/2015 Sees Chronic sacroiliac (SI) strain 08/27/2013 DDD (degenerative disc disease), lumbar 07/26/2014 Ex-smoker 03/17/2019 Quit 09/2018 Fibromyalgia 06/06/2009 Foot callus 11/29/2020 Gastroesophageal reflux disease without esophagitis 10/02/2016 Generalized anxiety disorder 03/13/2006 Generalized osteoarthrosis, unspecified site Glaucoma History of knee replacement procedure of right knee Hx of colonic polyp 08/19/2018 Hypertension, essential 04/12/2022 Low serum vitamin B12 10/10/2021 Lumbago 05/19/2015 Medicare annual wellness visit, subsequent 08/05/2017 last done: 11/22/19 Medical B eligibilty date 06/12/2016 Mixed hyperlipidemia 02/12/2005 WHIT (obstructive sleep apnea) 07/04/2010 Titration done 01/2013 IMPRESSION: 1. At a CPAP setting of 12 cmH2O, the apnea- hypopnea and arousal indices were normalized. At this setting, snoring was eliminated and the oxygen saturation was maintained above 90%. Of note, both REM and supine sleep were present when this setting was tested. 2. Abnormal sleep architecture likely due to respiratory events, PAP titration, first night effect. RECOMMENDATIONS: CPAP 12 cmH20 with humidification. INTERPRETING PHYSICIAN: David Wolfe MD PSG done @ [facility] AHI 11. Complete report has been scanned into [id number]. Neurology procedures. Osteopenia 06/07/2008 Recurrent major depression in partial remission (HCC) 05/30/2005 Stasis dermatitis of right lower extremity due to peripheral venous hypertension 04/02/2016 Status post left hip replacement Previous Surgical History PAST SURGICAL HISTORY Procedure Laterality Date ARTHROSCOPY KNEE DIAGNOSTIC W/WO SYNOVIAL BX SPX Arthroscopy, left knee ARTHRP ACETBLR/PROX FEM PROSTC AGRFT/ALGRFT left Hip replacement, total ARTHRP KNE CONDYLE&PLATU MEDIAL&LAT COMPARTMENTS 05/31/13 Knee replacement, total bilateral COLONOSCOPY FLX DX W/COLLJ SPEC WHEN PFRMD 03/03/2013 Colonoscopy, repeat 5 yrs DILATION & CURETTAGE DX&/THER NONOBSTETRIC Dilation & curettage ESOPHAGOGASTRODUODENOSCOPY TRANSORAL DIAGNOSTIC 03/03/13 EGD EXC CYST/ABERRANT BREAST TISSUE OPEN 1/> LESION 07/19/09 Exc upper inner left breast SC mass HYSTEROSCOPY, DIAGNOSTIC (SEPARATE Hysteroscopy Family History FAMILY HISTORY Problem Relation Age of Onset Osteoporosis Mother Cancer Mother skin Colon Cancer Mother 88 Diabetes Father Cancer Sister breast other (Other) Other fibromyalgia Patient Allergies ALLERGIES Allergen Reactions Famciclovir Rash large vesicles of fingers (2 fingers) Fentanyl Mental Status Change patches Lamictal [Lamotrigi* Mental Status Change mental cloudy Lyrica [Pregabalin] Other: See Comments Increased depression Oxycontin [Oxycodon* Other: See Comments Anxiety, depression Wellbutrin [Bupropi* Intolerance Mental status change Atarax [Hydroxyzine] Mental Status Change Niacin Other: See Comments depression Prevacid [Lansopraz* Unknown Current Medications Current Outpatient Medications on File Prior to Visit Medication Sig amLODIPine (NORVASC) 5 mg tablet Take 1 tablet by mouth once daily. fluticasone (FLONASE) 50 mcg/actuation nasal spray Use 2 Sprays in each nostril once daily. Rinse mouth after use. glimepiride (AMARYL) 4 mg tablet Take 1 tablet by mouth twice daily with meals. pantoprazole DR (PROTONIX) 20 mg tablet take 1 tablet daily 1/2 hour before breakfast on an empty stomach lisinopril (ZESTRIL,PRINIVIL) 30 mg tablet Take 1 tablet by mouth once daily. atorvastatin (LIPITOR) 40 mg tablet Take 1 tablet by mouth once daily. busPIRone (BUSPAR) 15 mg tablet Take 1 tablet by mouth twice daily. FLUoxetine (PROZAC) 20 mg capsule Take 2 capsules by mouth once daily. metFORMIN ER (GLUCOPHAGE XR) 500 mg 24 hr tablet Take 2 tablets by mouth twice daily. pioglitazone (ACTOS) 45 mg tablet Take 1 tablet by mouth once daily. cyclobenzaprine (FLEXERIL) 10 mg tablet Take 1 tablet by mouth twice daily as needed. meloxicam (MOBIC) 15 mg tablet Take 1 tablet by mouth once daily. With food. blood sugar diagnostic (BLOOD GLUCOSE TEST) test strip Test blood sugar(s) 2 times daily. Dx: OtherDM Code E11.29 Insulin: No A1c 7.5% 09/05/2021 Lancets lancets Test blood sugar(s) 2 times daily. Dx: Other DM Code 11.29 Insulin: No, A1c 7.5% 09/05/2021 albuterol HFA (PROVENTIL HFA, VENTOLIN HFA) 90 mcg/actuation inhaler Inhale 2 Puffs as instructed every 4 hours as needed. meclizine (ANTIVERT) 25 mg tab Take 1 tablet by mouth every 6 hours as needed (dizziness). cholecalciferol (VITAMIN D) 1,000 unit tab tablet Take 1 tablet by mouth once daily. Take 4 tabletsdaily Ascorbic Acid (VITAMIN C) 1,000 mg tablet Take 1 tablet by mouth once daily. Multivitamin capsule Take 1 capsule by mouth once daily. bifidobacteri bifid.and longum (FLORAJEN BIFIDOBLEND) 460 mg (9-1 bill.cell) cap Take 1 capsule by mouth once daily. aspirin, enteric coated (ADULT ASPIRIN REGIMEN) 81 mg EC tablet Take 1 tablet by mouth once daily. omega-3 fatty acids 1,000 mg cap Take 2 capsules by mouth once daily. COMPOUNDED PRESCRIPTION Compression stockings, thigh high 15-20mmHg Dx: leg edema No current facility-administered medications on file prior to visit. 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 Lungs: Lungs clear to auscultation. No wheezing, rhonchi, rales.. Heart: RRR without murmur, gallop, or rubs. No ectopy. Health Maintenance List BP CONTROLLED (<130/80) Never done ADVANCE DIRECTIVE DISCUSSION due on 05/12/2022 SHINGRIX VACCINE(2 of 3) due on 04/12/2023 URINE ALBUMIN:CREATININE RATIO due on 09/05/2022 HBA1C due on 10/08/2022 DIABETIC FOOT EXAM due on 10/10/2022 MAMMOGRAM due on 10/23/2022 LDL CHOLESTEROL due on 04/10/2023 COLORECTAL CANCER SCREENING due on 04/23/2023 DILATED RETINAL EXAM due on 05/31/2023 ANNUAL PCP TEAM CHRONIC DISEASE VISIT due on 06/11/2023 DTAP,TDAP,TD(2 - Td or Tdap) due on 01/29/2026 BONE DENSITY Completed INFLUENZA Completed HEPATITIS C SCREENING Completed COVID-19 VACCINE Completed PNEUMOCOCCAL: 65+ Completed ASSESSMENT/PLAN: 1. Hypertension, essential - ICD9: 401.9, ICD10: I10 - suboptimal control - Increase amlodipine (Norvasc) - Encouraged dietary sodium restriction/DASH diet - Recommended regular aerobic exercise. - Recommend home blood pressure monitoring, to bring results in on next visit - Discussed need and benefit for weight loss. - Follow up in 1 month for BP recheck. - Goal of BP <130/80 - AMLODIPINE 10 MG TABLET Teddy Cox APRN.PERIOPERATIVE ASSISTANT documented [facility] encounterDay[facility] Instructions* Patient Instructions* Teddy Cox APRN.CNP - 06/11/2022 12:48 PM EST Continue lisinopril Start amlodopine Follow up in 4 weeks documented in this encounterDay[facility]31-[facility]23 History of Present illness Narrative* Teddy Cox APRN.CNP - 06/11/2022 12:41 PM EST Chief Complaint Patient presents with: Follow Up: Blood pressure HPI Beverly Givens is a 71 year old female who presents here today for Above Complaints.. Patient presents for BP check. Patient was seen 05/13/2022 for elevated BP and her lisinopril was increased to 30mg daily. Past medical history, appointments, medications, allergies reviewed. Previous Medical History PAST MEDICAL HISTORY Diagnosis Date Adjustment disorder 10/29/2011 Advance directive discussed with patient 10/10/2021 Discussed 10/2021 Arthritis of knee, right 12/23/2012 Arthritis of left knee 05/28/2013 BPV (benign positional vertigo), unspecified laterality 11/22/2019 Chronic pain of both shoulders 10/10/2021 Chronic pain syndrome 11/26/2015 Sees Chronic sacroiliac (SI) strain 08/27/2013 DDD (degenerative disc disease), lumbar 07/26/2014 Ex-smoker 03/17/2019 Quit 09/2018 Fibromyalgia 06/06/2009 Foot callus 11/29/2020 Gastroesophageal reflux disease without esophagitis 10/02/2016 Generalized anxiety disorder 03/13/2006 Generalized osteoarthrosis, unspecified site Glaucoma History of knee replacement procedure of right knee Hx of colonic polyp 08/19/2018 Hypertension, essential 04/12/2022 Low serum vitamin B12 10/10/2021 Lumbago 05/19/2015 Medicare annual wellness visit, subsequent 08/05/2017 last done: 11/22/19 Medical B eligibilty date 06/12/2016 Mixed hyperlipidemia 02/12/2005 WHIT (obstructive sleep apnea) 07/04/2010 Titration done 01/2013 IMPRESSION: 1. At a CPAP setting of 12 cmH2O, the apnea- hypopnea and arousal indices were normalized. At this setting, snoring was eliminated and the oxygen saturation was maintained above 90%. Of note, both REM and supine sleep were present when this setting was tested. 2. Abnormal sleep architecture likely due to respiratory events, PAP titration, first night effect. RECOMMENDATIONS: CPAP 12 cmH20 with humidification. INTERPRETING PHYSICIAN: David Wolfe MD PSG done @ [facility] 11. Complete report has been scanned into [id number]. Neurology procedures. Osteopenia 06/07/2008 Recurrent major depression in partial remission (HCC) 05/30/2005 Stasis dermatitis of right lower extremity due to peripheral venous hypertension 04/02/2016 Status post left hip replacement Previous Surgical History PAST SURGICAL HISTORY Procedure Laterality Date ARTHROSCOPY KNEE DIAGNOSTIC W/WO SYNOVIAL BX SPX Arthroscopy, left knee ARTHRP ACETBLR/PROX FEM PROSTC AGRFT/ALGRFT left Hip replacement, total ARTHRP KNE CONDYLE&PLATU MEDIAL&LAT COMPARTMENTS 05/31/13 Knee replacement, total bilateral COLONOSCOPY FLX DX W/COLLJ SPEC WHEN PFRMD 03/03/2013 Colonoscopy, repeat 5 yrs DILATION & CURETTAGE DX&/THER NONOBSTETRIC Dilation & curettage ESOPHAGOGASTRODUODENOSCOPY TRANSORAL DIAGNOSTIC 03/03/13 EGD EXC CYST/ABERRANT BREAST TISSUE OPEN 1/> LESION 07/19/09 Exc upper inner left breast SC mass HYSTEROSCOPY, DIAGNOSTIC (SEPARATE Hysteroscopy Family History FAMILY HISTORY Problem Relation Age of Onset Osteoporosis Mother Cancer Mother skin Colon Cancer Mother 88 Diabetes Father Cancer Sister breast other (Other) Other fibromyalgia Patient Allergies ALLERGIES Allergen Reactions Famciclovir Rash large vesicles of fingers (2 fingers) Fentanyl Mental Status Change patches Lamictal [Lamotrigi* Mental Status Change mental cloudy Lyrica [Pregabalin] Other: See Comments Increased depression Oxycontin [Oxycodon* Other: See Comments Anxiety, depression Wellbutrin [Bupropi* Intolerance Mental status change Atarax [Hydroxyzine] Mental Status Change Niacin Other: See Comments depression Prevacid [Lansopraz* Unknown Current Medications Current Outpatient Medications on File Prior to Visit Medication Sig glimepiride (AMARYL) 4 mg tablet Take 1 tablet by mouth twice daily with meals. pantoprazole DR (PROTONIX) 20 mg tablet take 1 tablet daily 1/2 hour before breakfast on an empty stomach lisinopril (ZESTRIL,PRINIVIL) 30 mg tablet Take 1 tablet by mouth once daily. atorvastatin (LIPITOR) 40 mg tablet Take 1 tablet by mouth once daily. busPIRone (BUSPAR) 15 mg tablet Take 1 tablet by mouth twice daily. FLUoxetine (PROZAC) 20 mg capsule Take 2 capsules by mouth once daily. metFORMIN ER (GLUCOPHAGE XR) 500 mg 24 hr tablet Take 2 tablets by mouth twice daily. pioglitazone (ACTOS) 45 mg tablet Take 1 tablet by mouth once daily. cyclobenzaprine (FLEXERIL) 10 mg tablet Take 1 tablet by mouth twice daily as needed. meloxicam (MOBIC) 15 mg tablet Take 1 tablet by mouth once daily. With food. blood sugar diagnostic (BLOOD GLUCOSE TEST) test strip Test blood sugar(s) 2 times daily. Dx: OtherDM Code E11.29 Insulin: No A1c 7.5% 09/05/2021 Lancets lancets Test blood sugar(s) 2 times daily. Dx: Other DM Code 11.29 Insulin: No, A1c 7.5% 09/05/2021 albuterol HFA (PROVENTIL HFA, VENTOLIN HFA) 90 mcg/actuation inhaler Inhale 2 Puffs as instructed every 4 hours as needed. meclizine (ANTIVERT) 25 mg tab Take 1 tablet by mouth every 6 hours as needed (dizziness). cholecalciferol (VITAMIN D) 1,000 unit tab tablet Take 1 tablet by mouth once daily. Take 4 tabletsdaily Ascorbic Acid (VITAMIN C) 1,000 mg tablet Take 1 tablet by mouth once daily. Multivitamin capsule Take 1 capsule by mouth once daily. bifidobacteri bifid.and longum (FLORAJEN BIFIDOBLEND) 460 mg (9-1 bill.cell) cap Take 1 capsule by mouth once daily. fluticasone (FLONASE) 50 mcg/actuation nasal spray Use 2 Sprays in each nostril once daily. Rinse mouth after use. aspirin, enteric coated (ADULT ASPIRIN REGIMEN) 81 mg EC tablet Take 1 tablet by mouth once daily. omega-3 fatty acids 1,000 mg cap Take 2 capsules by mouth once daily. COMPOUNDED PRESCRIPTION Compression stockings, thigh high 15-20mmHg Dx: leg edema No current facility-administered medications on file prior to visit. 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 Lungs: Lungs clear to auscultation. No wheezing, rhonchi, rales.. Heart: RRR without murmur, gallop, or rubs. No ectopy. Health Maintenance List BP CONTROLLED (<130/80) Never done ADVANCE DIRECTIVE DISCUSSION due on 05/12/2022 SHINGRIX VACCINE(2 of 3) due on 04/12/2023 URINE ALBUMIN:CREATININE RATIO due on 09/05/2022 HBA1C due on 10/08/2022 DIABETIC FOOT EXAM due on 10/10/2022 MAMMOGRAM due on 10/23/2022 LDL CHOLESTEROL due on 04/10/2023 COLORECTAL CANCER SCREENING due on 04/23/2023 ANNUAL PCP TEAM CHRONIC DISEASE VISIT due on 05/14/2023 DILATED RETINAL EXAM due on 05/31/2023 DTAP,TDAP,TD(2 - Td or Tdap) due on 01/29/2026 BONE DENSITY Completed INFLUENZA Completed HEPATITIS C SCREENING Completed COVID-19 VACCINE Completed PNEUMOCOCCAL: 65+ Completed ASSESSMENT/PLAN: 1. Hypertension, essential - ICD9: 401.9, ICD10: I10 - suboptimal control - Continue current medication(s) - Add amlodipine (Norvasc) - Encouraged dietary sodium restriction/DASH diet - Recommended regular aerobic exercise. - Recommend home blood pressure monitoring, to bring results in on next visit - Discussed need and benefit for weight loss. - Follow up in 1 month for BP recheck. - Reviewed risks of HTN and principles of treatment - Goal of BP <130/80 - AMLODIPINE 5 MG TABLET Teddy Cox APRN.PERIOPERATIVE ASSISTANT documented in this encounterDay[facility]01-26-2023 Miscellaneous Notes* Telephone Encounter - Luis M Johnson MD - 06/06/2022 3:33 PM EST The following approved medication requests have been transmitted electronically. Requested Prescriptions Signed Prescriptions Disp Refills glimepiride (AMARYL) 4 mg tablet 180 tablet 1 Sig: Take 1 tablet by mouth twice daily with meals. Authorizing Provider: LUIS M JOHNSON pantoprazole DR (PROTONIX) 20 mg tablet 90 tablet 1 Sig: take 1 tablet daily 1/2 hour before breakfast on an empty stomach Authorizing Provider: LUIS M JOHNSON MD * Telephone Encounter - Katlyn Almanza MA - 06/06/2022 2:53 PM EST Patient has been identified by name and date of : Yes Requested Prescriptions Pending Prescriptions Disp Refills glimepiride (AMARYL) 4 mg tablet 180 tablet 3 Sig: Take 1 tablet by mouth twice daily with meals. pantoprazole DR (PROTONIX) 20 mg tablet 90 tablet 3 Sig: take 1 tablet daily 1/2 hour before breakfast on an empty stomach RX INSTRUCTIONS: Patient aware RX will be sent to pharmacy. No need to notify patient. Katlyn Almanza MA [place]: 05/2022 Nov: 10/2022 Last refill: 10/2021 * Telephone Encounter - [place] [facility] [place]06[place]2022 2:24 PM EST Patient has been identified by name and date of : Yes Requested Prescriptions Pending Prescriptions Disp Refills glimepiride (AMARYL) 4 mg tablet 180 tablet 3 Sig: Take 1 tablet by mouth twice daily with meals. pantoprazole DR (PROTONIX) 20 mg tablet 90 tablet 3 Sig: take 1 tablet daily 1/2 hour before breakfast on an empty stomach RX INSTRUCTIONS: Patient aware RX will be sent to pharmacy. No need to notify patient. Keerthi [place] [facility] [place] by Keerthi Condon [facility] [place] 06/06/2022 2:29 PM EST documented in this encounterDay[facility]12-19-2022 Miscellaneous Notes* Telephone Encounter - Bairon Collado LPN - 04/29/2022 10:00 AM EST Pt notified of same. Bairon Collado LPN * Telephone Encounter - Luis M Johnson MD - 04/27/2022 2:35 PM EST Let patient know stool test was negative for blood. documented in this encounterDayton [facility]12-06-2022 Miscellaneous Notes* Telephone Encounter - Joanne Lechuga Ma - 04/16/2022 3:43 PM EST PA approved and patient notified through [facility] Joanne Lechuga Ma * Telephone Encounter - Joanne Lechuga Ma - 04/16/2022 11:24 AM EST Prior Authorization has been completed online at [employer] for cyclobenzprine, will await response. [id number] Please keep encounter open until final decision has been received and documented from insurance company. Joanne Lechuga MA documented in this encounterDayton [facility]12-02-2022 Instructions* Patient Instructions* Luis M Johnson MD - 04/12/2022 2:13 PM EST Consider getting the shingrix vaccine for the prevention of shingles from a local pharmacy. Please get labs and urine test done on or after 09/27/2022 prior to your next visit. documented in this encounterDayton [facility]12-02-2022 History of Present illness Narrative* Luis M Johnson MD - 04/12/2022 1:40 PM EST Chief Complaint 6 month follow up HPI Beverly Givens is a 71 year old female who presents here today for 6 month follow up. Patient with hx of DM type 2, GERD, Hyperlipidemia, WHIT, Anxiety, depression, morbid obesity, Fibromyalgia, ex-smoker, osteopenia, osteoarthritis as well as those reviewed and addressed below and in ROS Patient has been doing ok. Says she has been working on increased exercise and improved diet with reduced carbs. At last appt patient was referred to pain management but did not follow thorough with this. Says the Mobic has helped a lot. Has appt with optho in May 2022. Past medical history, appointments, medications, allergies reviewed. Previous Medical History PAST MEDICAL HISTORY Diagnosis Date Adjustment disorder 10/29/2011 Advance directive discussed with patient 10/10/2021 Discussed 10/2021 Arthritis of knee, right 12/23/2012 Arthritis of left knee 05/28/2013 BPV (benign positional vertigo), unspecified laterality 11/22/2019 Chronic pain of both shoulders 10/10/2021 Chronic pain syndrome 11/26/2015 Sees Chronic sacroiliac (SI) strain 08/27/2013 DDD (degenerative disc disease), lumbar 07/26/2014 Ex-smoker 03/17/2019 Quit 09/2018 Fibromyalgia 06/06/2009 Foot callus 11/29/2020 Gastroesophageal reflux disease without esophagitis 10/02/2016 Generalized anxiety disorder 03/13/2006 Generalized osteoarthrosis, unspecified site Glaucoma History of knee replacement procedure of right knee Hx of colonic polyp 08/19/2018 Low serum vitamin B12 10/10/2021 Lumbago 05/19/2015 Medicare annual wellness visit, subsequent 08/05/2017 last done: 11/22/19 Medical B eligibilty date 06/12/2016 Mixed hyperlipidemia 02/12/2005 WHIT (obstructive sleep apnea) 07/04/2010 Titration done 01/2013 IMPRESSION: 1. At a CPAP setting of 12 cmH2O, the apnea- hypopnea and arousal indices were normalized. At this setting, snoring was eliminated and the oxygen saturation was maintained above 90%. Of note, both REM and supine sleep were present when this setting was tested. 2. Abnormal sleep architecture likely due to respiratory events, PAP titration, first night effect. RECOMMENDATIONS: CPAP 12 cmH20 with humidification. INTERPRETING PHYSICIAN: David Wolfe MD PSG done @ [facility] 11. Complete report has been scanned into [facility]. Neurology procedures. Osteopenia 06/07/2008 Recurrent major depression in partial remission (HCC) 05/30/2005 Stasis dermatitis of right lower extremity due to peripheral venous hypertension 04/02/2016 Status post left hip replacement Previous Surgical History PAST SURGICAL HISTORY Procedure Laterality Date ARTHROSCOPY KNEE DIAGNOSTIC W/WO SYNOVIAL BX SPX Arthroscopy, left knee ARTHRP ACETBLR/PROX FEM PROSTC AGRFT/ALGRFT left Hip replacement, total ARTHRP KNE CONDYLE&PLATU MEDIAL&LAT COMPARTMENTS 05/31/13 Knee replacement, total bilateral COLONOSCOPY FLX DX W/COLLJ SPEC WHEN PFRMD 03/03/2013 Colonoscopy, repeat 5 yrs DILATION & CURETTAGE DX&/THER NONOBSTETRIC Dilation & curettage ESOPHAGOGASTRODUODENOSCOPY TRANSORAL DIAGNOSTIC 03/03/13 EGD EXC CYST/ABERRANT BREAST TISSUE OPEN 1/> LESION 07/19/09 Exc upper inner left breast SC mass HYSTEROSCOPY, DIAGNOSTIC (SEPARATE Hysteroscopy Family History FAMILY HISTORY Problem Relation Age of Onset Osteoporosis Mother Cancer Mother skin Colon Cancer Mother 88 Diabetes Father Cancer Sister breast other (Other) Other fibromyalgia Patient Allergies ALLERGIES Allergen Reactions Famciclovir Rash large vesicles of fingers (2 fingers) Fentanyl Mental Status Change patches Lamictal [Lamotrigi* Mental Status Change mental cloudy Lyrica [Pregabalin] Other: See Comments Increased depression Oxycontin [Oxycodon* Other: See Comments Anxiety, depression Wellbutrin [Bupropi* Intolerance Mental status change Atarax [Hydroxyzine] Mental Status Change Niacin Other: See Comments depression Prevacid [Lansopraz* Unknown Current Medications Current Outpatient Medications on File Prior to Visit Medication Sig meloxicam (MOBIC) 15 mg tablet Take 1 tablet by mouth once daily. With food. atorvastatin (LIPITOR) 40 mg tablet Take 1 tablet by mouth once daily. busPIRone (BUSPAR) 15 mg tablet Take 1 tablet by mouth twice daily. FLUoxetine (PROZAC) 20 mg capsule Take 2 capsules by mouth once daily. glimepiride (AMARYL) 4 mg tablet Take 1 tablet by mouth twice daily with meals. metFORMIN ER (GLUCOPHAGE XR) 500 mg 24 hr tablet Take 2 tablets by mouth twice daily. pantoprazole DR (PROTONIX) 20 mg tablet take 1 tablet daily 1/2 hour before breakfast on an empty stomach pioglitazone (ACTOS) 45 mg tablet Take 1 tablet by mouth once daily. blood sugar diagnostic (BLOOD GLUCOSE TEST) test strip Test blood sugar(s) 2 times daily. Dx: OtherDM Code E11.29 Insulin: No A1c 7.5% 09/05/2021 Lancets lancets Test blood sugar(s) 2 times daily. Dx: Other DM Code 11.29 Insulin: No, A1c 7.5% 09/05/2021 cyclobenzaprine (FLEXERIL) 10 mg tablet Take 1 tablet by mouth twice daily as needed. albuterol HFA (PROVENTIL HFA, VENTOLIN HFA) 90 mcg/actuation inhaler Inhale 2 Puffs as instructed every 4 hours as needed. meclizine (ANTIVERT) 25 mg tab Take 1 tablet by mouth every 6 hours as needed (dizziness). cholecalciferol (VITAMIN D) 1,000 unit tab tablet Take 1 tablet by mouth once daily. Take 4 tabletsdaily Ascorbic Acid (VITAMIN C) 1,000 mg tablet Take 1 tablet by mouth once daily. Multivitamin capsule Take 1 capsule by mouth once daily. bifidobacteri bifid.and longum (FLORAJEN BIFIDOBLEND) 460 mg (9-1 bill.cell) cap Take 1 capsule by mouth once daily. fluticasone (FLONASE) 50 mcg/actuation nasal spray Use 2 Sprays in each nostril once daily. Rinse mouth after use. aspirin, enteric coated (ADULT ASPIRIN REGIMEN) 81 mg EC tablet Take 1 tablet by mouth once daily. omega-3 fatty acids 1,000 mg cap Take 2 capsules by mouth once daily. COMPOUNDED PRESCRIPTION Compression stockings, thigh high 15-20mmHg Dx: leg edema No current facility-administered medications on file prior to visit. 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 Review of Symptoms REVIEW OF SYSTEMS GENERAL: No weight loss, malaise or fevers NECK: Negative for lumps, goiter, pain and significant neck swelling RESPIRATORY: Negative for cough, hemoptysis, wheezing, COPD, dyspnea or increased shortness of breath CARDIOVASCULAR: Negative for chest pain, leg swelling, hypertension, CHF or palpitations GI: No nausea, vomiting, or diarrhea and No heartburn or reflux symptoms : No history of dysuria, blood ENDOCRINE: Negative for symptoms of low BS's NEURO: No history of headaches, syncope, paralysis, seizures or tremors EXAM: BP 148/92 (BP Site: Left Arm, BP Position: Sitting, BP Cuff Size: Large Adult) Pulse 86 Resp 16 Wt (!) 139.3 kg (307 lb) BMI 49.55 kg/m BP 150/78 Pulse 86 Resp 16 Wt (!) 139.3 kg (307 lb) BMI 49.55 kg/m Last 5 Encounter Wt Readings: Date: Wt: 04/12/2022 139.3 kg (307 lb) 11/02/2021 135.2 kg (298 lb) 10/10/2021 135.2 kg (298 lb) 04/06/2021 135.2 kg (298 lb) 02/04/2021 136.7 kg (301 lb 6.4 oz) General Appearance: Well appearing, alert, in no acute distress, well-hydrated, well nourished. andMorbidly obese. Eyes: Anicteric sclera. Pupils are equally round and reactive to light. Extraocular movements are intact. . Neck: Supple, no adenopathy; thyroid symmetric, normal size, no bruits. Lungs: Lungs clear to auscultation. No wheezing, rhonchi, rales.. Heart: RRR without murmur, gallop, or rubs. No ectopy. Abdomen: Normal abdominal exam, Abdomen soft, non-tender. Bowel sounds normal. No masses, organomegaly. Extremities: No deformities. Wearing support socks.. Musculoskeletal: Muscular strength intact, No joint swelling, deformity, or tenderness. Peripheral Pulses: Normal. Neurologic: Gait normal. Reflexes normal and symmetric. Sensation to light touch and crainal nerves2-12 intact.. Health Maintenance List SHINGRIX VACCINE(2 of 3) due on 06/24/2016 DILATED RETINAL EXAM due on 06/16/2021 COLORECTAL CANCER SCREENING due on 12/04/2021 URINE ALBUMIN:CREATININE RATIO due on 09/05/2022 HBA1C due on 10/08/2022 DIABETIC FOOT EXAM due on 10/10/2022 MAMMOGRAM due on 10/23/2022 ANNUAL PCP TEAM CHRONIC DISEASE VISIT due on 11/02/2022 LDL CHOLESTEROL due on 04/10/2023 DTAP,TDAP,TD(2 - Td or Tdap) due on 01/29/2026 BONE DENSITY Completed INFLUENZA Completed ADVANCE DIRECTIVE DISCUSSION Completed HEPATITIS C SCREENING Completed COVID-19 VACCINE Completed PNEUMOCOCCAL: 65+ Completed Data reviewed Component Latest Ref Rng & Units 09/05/2021 04/10/2022 WBC 3.70 - 11.00 k/uL 8.70 RBC 3.90 - 5.20 m/uL 5.05 Hemoglobin 11.5 - 15.5 g/dL 14.2 Hematocrit 36.0 - 46.0 % 44.9 MCV 80.0 - 100.0 fL 88.9 MCH 26.0 - 34.0 pg 28.1 MCHC 30.5 - 36.0 g/dL 31.6 RDW-CV 11.5 - 15.0 % 14.2 Platelet Count 150 - 400 k/uL 317 MPV 9.0 - 12.7 fL 9.3 Neut% % 44.5 Abs Neut (ANC) 1.45 - 7.50 k/uL 3.87 Lymph% % 44.8 Abs Lymph 1.00 - 4.00 k/uL 3.90 [place]% % 9.0 Abs [place] <0.87 k/uL 0.78 Eosin% % 1.0 Abs Eosin <0.46 k/uL 0.09 Baso% % 0.5 Abs Baso <0.11 k/uL 0.04 Immature Gran % % 0.2 IMMATURE GRANS (ABS) <0.10 k/uL <0.03 NRBC /100 WBC 0.0 Absolute nRBC <0.01 k/uL <0.01 DTYPE Auto Protein, Total 6.3 - 8.0 g/dL 8.0 Albumin 3.9 - 4.9 g/dL 4.8 Calcium 8.5 - 10.2 mg/dL 10.2 Bilirubin, Total 0.2 - 1.3 mg/dL 0.3 Alkaline Phosphatase 34 - 123 U/L 92 AST 13 - 35 U/L 33 ALT 7 - 38 U/L 48 (H) Glucose 74 - 99 mg/dL 161 (H) BUN 7 - 21 mg/dL 22 (H) Creatinine 0.58 - 0.96 mg/dL 0.87 Sodium 136 - 144 mmol/L 141 Potassium 3.7 - 5.1 mmol/L 4.7 Chloride 97 - 105 mmol/L 102 CO2 22 - 30 mmol/L 26 Anion Gap 9 - 18 mmol/L 13 eGFR >=60 mL/min/1.73m 72 Color Yellow Light Yellow Clarity Clear Clear Glucose, Urine Negative 2+ (A) Bilirubin, Urine Negative Negative Ketones, Urine Negative Negative Specific [place], Ur 1.005 - 1.030 1.013 Hemoglobin/Blood,Ur Negative Negative pH, Urine 5.0 - 8.0 6.0 Protein, Urine Negative Negative Urobilinogen Negative Negative Nitrites Negative Negative Leukest Negative Negative WBC, Urine 0-5 /HPF 0-5 /HPF RBC, Urine 0-3 /HPF 0-3 /HPF Epithelial Cells /HPF Few Total Cholesterol, Nonfasting <200 mg/dL 180 174 Triglycerides, Nonfasting <150 mg/dL 183 (H) 172 (H) HDL Cholesterol, Nonfasting >39 mg/dL 59 63 LDL Cholesterol, Nonfasting <100 mg/dL 84 77 Non HDL Cholesterol, Nonfasting <130 mg/dL 121 111 VLDL Cholesterol, Nonfasting <30 mg/dL 37 (H) 34 (H) Total Chol/HDL Ratio, Nonfasting <5.10 mg/dL 3.05 2.76 LDL/HDL Ratio, Nonfasting <2.54 mg/dL 1.42 1.22 Creatinine, Ur Random (UCRR) 20.0 - 300.0 mg/dL 52.6 Albumin, Urine Random mg/L 24.3 Albumin/Creat Ratio <30 mg/g 46 (H) Hemoglobin A1C 4.3 - 5.6 % 7.5 (H) 7.2 (H) Estimated Average Glucose mg/dL 169 160 Vitamin B12 232 - 1,245 pg/mL 241 915 Magnesium 1.7 - 2.3 mg/dL 1.9 A/P ASSESSMENT/PLAN: 1. Type 2 diabetes mellitus with microalbuminuria, unspecified whether prison insulin use (HCC) - ICD9: 250.40, 791.0, ICD10: E11.29, R80.9 (primary diagnosis) uncontrolled improved control - Continue current medications - Encouraged regular aerobic exercise and weight loss - BP goal of <130/80 - LDL goal of <100 - discussed the need for further improvement in her diet with regard to carbs and starches. As wellas the need to weight loss. 2. Diabetic eye exam (HCC) - ICD9: V72.0, 250.00, ICD10: Z01.00, E11.9 - patient has set up to have completed in May 2022. 3. Hypertension, essential - ICD9: 401.9, ICD10: I10 - newly diagnosed - Begin lisinopril (Zestril/Prinivil) 20 mg a day. F/u HTN med check in 4 weeks. - Recommended regular aerobic exercise. - Recommend home blood pressure monitoring, to bring results in on next visit - Goal of BP <130/80 4. Mixed hyperlipidemia - ICD9: 272.2, ICD10: E78.2 - good control - Encouraged following a low fat, low cholesterol diet. - Discussed the benefits of regular aerobic exercise and weight loss. - Encouraged following a low carbohydrate, healthy oil intake diet. - Continue current therapy. 5. Gastroesophageal reflux disease without esophagitis - ICD9: 530.81, ICD10: K21.9 - Continue treatment with protonix 20 mg QD 6. Recurrent major depression in partial remission (HCC) - ICD9: 296.35, ICD10: F33.41 - stable with current Tx. 7. Adjustment disorder, unspecified type - ICD9: 309.9, ICD10: F43.20 - as per #6 8. Generalized anxiety disorder - ICD9: 300.02, ICD10: F41.1 - as per #6 - BUSPIRONE 15 MG TABLET 9. Recovering alcoholic (HCC) - ICD9: 303.93, ICD10: F10.21 - patient continues to abstain. 10. WHIT (obstructive sleep apnea) - ICD9: 327.23, ICD10: G47.33 - continues to benefit from nightly CPAP use. 11. Morbid obesity with body mass index (BMI) of 45.0 to 49.9 in adult ([facility]) - ICD9: 278.01, V85.42, ICD10: E66.01, Z68.42 Weight increasing - Behavioral intervention - though she claims to have made dietary changes she weighs more today then at last visit. 12. Fibromyalgia - ICD9: 729.1, ICD10: M79.7 Cont prn - CYCLOBENZAPRINE 10 MG TABLET 13. Low serum vitamin B12 - ICD9: 266.2, ICD10: E53.8 - cont replacement 14. Screening for colon cancer - ICD9: V76.51, ICD10: Z12.11 Check - FECAL OCCULT BLOOD TEST Requested Prescriptions Signed Prescriptions Disp Refills atorvastatin (LIPITOR) 40 mg tablet 90 tablet 1 Sig: Take 1 tablet by mouth once daily. busPIRone (BUSPAR) 15 mg tablet 180 tablet 1 Sig: Take 1 tablet by mouth twice daily. FLUoxetine (PROZAC) 20 mg capsule 180 capsule 1 Sig: Take 2 capsules by mouth once daily. metFORMIN ER (GLUCOPHAGE XR) 500 mg 24 hr tablet 360 tablet 1 Sig: Take 2 tablets by mouth twice daily. pioglitazone (ACTOS) 45 mg tablet 90 tablet 1 Sig: Take 1 tablet by mouth once daily. cyclobenzaprine (FLEXERIL) 10 mg tablet 60 tablet 2 Sig: Take 1 tablet by mouth twice daily as needed. lisinopril (ZESTRIL, PRINIVIL) 20 mg tablet 90 tablet 1 Sig: Take 1 tablet by mouth once daily. HTN med check in 4 weeks F/u 4 months extensive check CMP, Lipid, UA, Urine micro albumin, A1c, CBC, B12, Mg prior. Luis M Johnson MD documented in this encounterDay[facility]11-18-2022 Miscellaneous Notes* Telephone Encounter - Katlyn Almanza MA - 03/29/2022 11:18 AM EST Patient has been identified by name and date of : Yes Requested Prescriptions Pending Prescriptions Disp Refills meloxicam (MOBIC) 15 mg tablet 90 tablet 1 Sig: Take 1 tablet by mouth once daily. With food. RX INSTRUCTIONS: Patient aware RX will be sent to pharmacy. No need to notify patient. Katlyn Almanza MA [place]: 10/2021 Nov: 04/2022 Last refill: 10/2021 * Telephone Encounter - Ceci Copeland Pss - 03/29/2022 9:46 AM EST Patient has been identified by name and date of : Yes Last office visit in this department: 11/02/2021 RX INSTRUCTIONS: Patient aware RX will be sent to pharmacy. No need to notify patient. Patient phones requesting refills as follows: Requested Prescriptions Pending Prescriptions Disp Refills meloxicam (MOBIC) 15 mg tablet 90 tablet 1 Sig: Take 1 tablet by mouth once daily. With food. Please review and advise. Ceci Copeland Pss documented in this encounterDayton Oste[facility] Hospital11-17-2022 History of Present illness Narrative* Greer Velazquez - 03/28/2022 11:04 AM EST POPULATION HEALTH NAVIGATION OUTREACH Action/FYI Patient returned call will schedule BRANDYN Will discuss colorectal at 04/12 appt Try to offer to schedule mammogram patient ended conversation Pt identified by name and : YES, via phone Outreach Outcome/Action Spoke to patient or caregiver: No action required (information or reminder only) Did you use a PCP flex slot to schedule this appointment? N/A Navigation Signature: Greer Velazquez March 28, 2022 11:04 AM * Greer Velazquez - 03/28/2022 10:14 AM EST POPULATION HEALTH NAVIGATION OUTREACH Action/FYI Left message to remind patient to complete orders that have been placed by PCP. To call if needs assistance in scheduling . And to review H/M Pt identified by name and : NO Outreach Outcome/Action Unable to reach patient: Left message MyChart message sent Did you use a PCP flex slot to schedule this appointment? N/A Reason for Outreach Care Gap or Scheduling/Wellness visits Payer: Payor: [employer] MEDICARE / Plan: AET MEDICARE HMO / Product Type: HMO / Care Gap Reviewed:: Colorectal Cancer Screening Diabetic Eye Exam Reminder: Reminder note to check Health Maintenance for items below Health Maintenance items due: DILATED RETINAL EXAM due on 06/16/2021 COVID-19 VACCINE(5 - Booster for Moderna series) due on 10/27/2021 COLORECTAL CANCER SCREENING due on 12/04/2021 HBA1C due on 03/07/2022 Message Sent to Practice: No Navigation Signature: Greer Velazquez March 28, 2022 10:14 AM documented in this encounterDayton [facility]09-27-2022 Miscellaneous Notes* Telephone Encounter - Naty Echols LPN - 02/05/2022 11:57 AM EDT Pt called and states she got her flu shot at [id number] today 02/05/22. Charted. Naty Echols LPN documented in this encounterDayton Oste[facility] Hospital08-30-2022 History of Present illness Narrative* Teddy James Pss - 01/08/2022 11:00 AM EDT POPULATION HEALTH NAVIGATION OUTREACH Action/FYI Patient due for Colonoscopy, BRANDYN Left message and sent MyChart Pt identified by name and : NO Outreach Outcome/Action Unable to reach patient: Left message MyChart message sent Did you use a PCP flex slot to schedule this appointment? N/A Reason for Outreach Care Gap or Scheduling/Wellness visits Payer: Payor: T MEDICARE / Plan: A[employer] MEDICARE HMO / Product Type: HMO / Care Gap Reviewed:: Colorectal Cancer Screening Diabetic Eye Exam Reminder: Reminder note to check Health Maintenance for items below Health Maintenance items due: DILATED RETINAL EXAM due on 06/16/2021 COLORECTAL CANCER SCREENING due on 12/04/2021 Message Sent to Practice: No Navigation Signature: Teddy James Pss January 08, 2022 11:00 AM documented in this encounterDayton Oste[facility] Hospital08-26-2022 Miscellaneous Notes* Telephone Encounter - Katlyn Almanza MA - 01/04/2022 10:13 AM EDT Left detailed message for patient. Katlyn Almanza MA * Telephone Encounter - Katlyn Almanza MA - 01/04/2022 7:42 AM EDT Faxed. Katlyn Almanza MA * Telephone Encounter - Luis M Johnson MD - 01/03/2022 4:50 PM EDT Order ready to be faxed * Telephone Encounter - Any Hancock - 01/03/2022 3:43 PM EDT Pt would like a referral to the [facility] Diabetes Education. She does not want to go with the Clinics providers. Please advise. documented in this encounterDayton Oste[facility] Hospital06-24-2022 Nurse Note* Katlyn Almanza MA - 11/02/2021 1:17 PM EDT 129/82 Average 130/83 126/83 128/82 130/82 132/83 documented in this encounterDayton Osteopathic Hospital06-24-2022 History of Present illness Narrative* Luis M Johnson MD - 11/02/2021 11:45 AM EDT Chief Complaint Patient presents with: Recheck HPI Beverly Givens is a 71 year old female who presents here today for blood pressure check. Patient notes the meloxicam has been working well. Home BP's have been 120's/60-70's Past medical history, appointments, medications, allergies reviewed. Previous Medical History PAST MEDICAL HISTORY Diagnosis Date Adjustment disorder 10/29/2011 Advance directive discussed with patient 10/10/2021 Discussed 10/2021 Arthritis of knee, right 12/23/2012 Arthritis of left knee 05/28/2013 BPV (benign positional vertigo), unspecified laterality 11/22/2019 Chronic pain syndrome 11/26/2015 Sees Chronic sacroiliac (SI) strain 08/27/2013 DDD (degenerative disc disease), lumbar 07/26/2014 Ex-smoker 03/17/2019 Quit 09/2018 Fibromyalgia 06/06/2009 Foot callus 11/29/2020 Gastroesophageal reflux disease without esophagitis 10/02/2016 Generalized anxiety disorder 03/13/2006 Generalized osteoarthrosis, unspecified site Glaucoma History of knee replacement procedure of right knee Hx of colonic polyp 08/19/2018 Low serum vitamin B12 10/10/2021 Lumbago 05/19/2015 Medicare annual wellness visit, subsequent 08/05/2017 last done: 11/22/19 Medical B eligibilty date 06/12/2016 Mixed hyperlipidemia 02/12/2005 WHIT (obstructive sleep apnea) 07/04/2010 Titration done 01/2013 IMPRESSION: 1. At a CPAP setting of 12 cmH2O, the apnea- hypopnea and arousal indices were normalized. At this setting, snoring was eliminated and the oxygen saturation was maintained above 90%. Of note, both REM and supine sleep were present when this setting was tested. 2. Abnormal sleep architecture likely due to respiratory events, PAP titration, first night effect. RECOMMENDATIONS: CPAP 12 cmH20 with humidification. INTERPRETING PHYSICIAN: David Wolfe MD PSG done @ [facility] 11. Complete report has been scanned into [employer]. Neurology procedures. Osteopenia 06/07/2008 Recurrent major depression in partial remission (HCC) 05/30/2005 Stasis dermatitis of right lower extremity due to peripheral venous hypertension 04/02/2016 Status post left hip replacement Previous Surgical History PAST SURGICAL HISTORY Procedure Laterality Date ARTHROSCOPY KNEE DIAGNOSTIC W/WO SYNOVIAL BX SPX Arthroscopy, left knee ARTHRP ACETBLR/PROX FEM PROSTC AGRFT/ALGRFT left Hip replacement, total ARTHRP KNE CONDYLE&PLATU MEDIAL&LAT COMPARTMENTS 05/31/13 Knee replacement, total bilateral COLONOSCOPY FLX DX W/COLLJ SPEC WHEN PFRMD 03/03/2013 Colonoscopy, repeat 5 yrs DILATION & CURETTAGE DX&/THER NONOBSTETRIC Dilation & curettage ESOPHAGOGASTRODUODENOSCOPY TRANSORAL DIAGNOSTIC 03/03/13 EGD EXC CYST/ABERRANT BREAST TISSUE OPEN 1/> LESION 07/19/09 Exc upper inner left breast SC mass HYSTEROSCOPY, DIAGNOSTIC (SEPARATE Hysteroscopy Family History FAMILY HISTORY Problem Relation Age of Onset Osteoporosis Mother Cancer Mother skin Colon Cancer Mother 88 Diabetes Father Cancer Sister breast other (Other) Other fibromyalgia Patient Allergies ALLERGIES Allergen Reactions Famciclovir Rash large vesicles of fingers (2 fingers) Fentanyl Mental Status Change patches Lamictal [Lamotrigi* Mental Status Change mental cloudy Lyrica [Pregabalin] Other: See Comments Increased depression Oxycontin [Oxycodon* Other: See Comments Anxiety, depression Wellbutrin [Bupropi* Intolerance Mental status change Atarax [Hydroxyzine] Mental Status Change Niacin Other: See Comments depression Prevacid [Lansopraz* Unknown Current Medications Current Outpatient Medications on File Prior to Visit Medication Sig atorvastatin (LIPITOR) 40 mg tablet Take 1 tablet by mouth once daily. busPIRone (BUSPAR) 15 mg tablet Take 1 tablet by mouth twice daily. FLUoxetine (PROZAC) 20 mg capsule Take 2 capsules by mouth once daily. glimepiride (AMARYL) 4 mg tablet Take 1 tablet by mouth twice daily with meals. metFORMIN ER (GLUCOPHAGE XR) 500 mg 24 hr tablet Take 2 tablets by mouth twice daily. pantoprazole DR (PROTONIX) 20 mg tablet take 1 tablet daily 1/2 hour before breakfast on an empty stomach pioglitazone (ACTOS) 45 mg tablet Take 1 tablet by mouth once daily. blood sugar diagnostic (BLOOD GLUCOSE TEST) test strip Test blood sugar(s) 2 times daily. Dx: OtherDM Code E11.29 Insulin: No A1c 7.5% 09/05/2021 Lancets lancets Test blood sugar(s) 2 times daily. Dx: Other DM Code 11.29 Insulin: No, A1c 7.5% 09/05/2021 meloxicam (MOBIC) 15 mg tablet Take 1 tablet by mouth once daily. With food. cyclobenzaprine (FLEXERIL) 10 mg tablet Take 1 tablet by mouth twice daily as needed. albuterol HFA (PROVENTIL HFA, VENTOLIN HFA) 90 mcg/actuation inhaler Inhale 2 Puffs as instructed every 4 hours as needed. meclizine (ANTIVERT) 25 mg tab Take 1 tablet by mouth every 6 hours as needed (dizziness). cholecalciferol (VITAMIN D) 1,000 unit tab tablet Take 1 tablet by mouth once daily. Take 4 tabletsdaily Ascorbic Acid (VITAMIN C) 1,000 mg tablet Take 1 tablet by mouth once daily. Multivitamin capsule Take 1 capsule by mouth once daily. bifidobacteri bifid.and longum (FLORAJEN BIFIDOBLEND) 460 mg (9-1 bill.cell) cap Take 1 capsule by mouth once daily. fluticasone (FLONASE) 50 mcg/actuation nasal spray Use 2 Sprays in each nostril once daily. Rinse mouth after use. aspirin, enteric coated (ADULT ASPIRIN REGIMEN) 81 mg EC tablet Take 1 tablet by mouth once daily. omega-3 fatty acids 1,000 mg cap Take 2 capsules by mouth once daily. COMPOUNDED PRESCRIPTION Compression stockings, thigh high 15-20mmHg Dx: leg edema No current facility-administered medications on file prior to visit. 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 EXAM: BP 148/88 (BP Site: Right Arm, BP Position: Sitting, BP Cuff Size: Large Adult) Pulse 80 Resp 16 Wt 135.2 kg (298 lb) BMI 48.10 kg/m BP 129/82 Pulse 108 Resp 16 Wt 135.2 kg (298 lb) BMI 48.10 kg/m General Appearance: Well appearing, alert, in no acute distress, well-hydrated, well nourished. andMorbidly obese. Lungs: Lungs clear to auscultation. No wheezing, rhonchi, rales.. Heart: RRR without murmur, gallop, or rubs. No ectopy. Extremities: No deformities, skin discoloration. Has 1+ pitting edema in the lower legs Health Maintenance List DILATED RETINAL EXAM due on 06/16/2021 SHINGRIX VACCINE(2 of 3) due on 04/06/2022 COLORECTAL CANCER SCREENING due on 12/04/2021 HBA1C due on 03/07/2022 URINE ALBUMIN:CREATININE RATIO due on 09/05/2022 LDL CHOLESTEROL due on 09/05/2022 DIABETIC FOOT EXAM due on 10/10/2022 ANNUAL PCP TEAM CHRONIC DISEASE VISIT due on 10/10/2022 MAMMOGRAM due on 10/23/2022 DTAP,TDAP,TD(2 - Td or Tdap) due on 01/29/2026 BONE DENSITY Completed INFLUENZA Completed ADVANCE DIRECTIVE DISCUSSION Completed HEPATITIS C SCREENING Completed COVID-19 VACCINE Completed PNEUMOCOCCAL: 65+ Completed Data reviewed A/P ASSESSMENT/PLAN: 1. Elevated blood pressure reading without diagnosis of hypertension - ICD9: 796.2, ICD10: R03.0 - Encouraged dietary sodium restriction/DASH diet - Recommended regular aerobic exercise. - Recommend home blood pressure monitoring, to bring results in on next visit - Goal of BP <130/80 F/u in Dec as already planned. Luis M Johnson MD documented in this encounterDayton [facility]06-15-2022 Miscellaneous Notes* Telephone Encounter - Bairon Collado LPN - 10/24/2021 10:37 AM EDT Pt notified of same. Bairon Collado LPN * Telephone Encounter - Bairon Collado LPN - 10/24/2021 10:31 AM EDT ----- Message from Summer Telles PA-C sent at 10/24/2021 10:06 AM EDT ----- Normal mammogram. Repeat in 1 year. documented in this encounterDayton Oste[facility] Hospital06-15-2022 Miscellaneous Notes* Letter - Mammography Coordinator - 10/24/2021 7:58 AM EDT October 24, 2021 PID: [id number] Beverly Givens [address] [place] [address] Dear Ms. Givens, We are pleased to inform you that the results of your recent breast imaging exam on 10/23/2021 are normal. Early detection of cancer is very important. We also understand recommendations regarding breast cancer screening are controversial. Please discuss with your primary care provider which strategy is best for you and whether a mammogram is right for you. Your imaging studies and report will be kept on file at [facility] as part of your permanent medical record and are available for your continuing care. Thank you for allowing us to help in meeting your health care needs. Sincerely, Dr. Wills Interpreting Radiologist [facility] (Normal over 40) documented in this encounterDayton Osteopathic Hospital06-14-2022 History of Present illness Narrative* RT Aurelio(R) - 10/23/2021 2:20 PM EDT Radiology Service Progress Note PATIENT NAME: Beverly Givens DATE OF SERVICE: October 23, 2021 TIME: 2:00 PM PATIENT IDENTITY VERIFICATION COMPLETED USING TWO (2) IDENTIFIERS: Name and Date of confirmedby patient verbally. FALL SCREENING: Has the patient had 2 falls in the last year or 1 fall with injury or currently using an Ambulatory Assistive Device (Walker, Cane, Wheelchair, Crutches, etc.)? No PATIENT GENDER DATA: Female. status: : No status: NO. PATIENT RELEVANT IMPLANT DATA REVIEWED: Not Applicable RADIOLOGY DEPARTMENT: Mammography PERIPHERAL IV DATA: Not applicable SIGNED BY: RT Aurelio(R) October 23, 2021 2:00 PM documented in this encounterDayton Osteopathic Hospital06-13-2022 Miscellaneous Notes* Telephone Encounter - Katlyn Almanza MA - 10/22/2021 1:09 PM EDT Faxed information to Dr. Hull office. Katlyn Almanza MA * Telephone Encounter - Summer Telles PA-C - 10/22/2021 12:36 PM EDT Consult placed. * Telephone Encounter - Bonnie Campoverde RN - 10/22/2021 12:24 PM EDT Patient calling with request for referral to Dr. Haq, Pain Management for chronic lower back pain and fibromyalgia. She already has an appointment scheduled. Bonnie Campoverde RN documented in this encounterDayton Oste[facility] Hospital06-08-2022 Miscellaneous Notes* Telephone Encounter - Dena Wiggins - 10/17/2021 1:53 PM EDT Left brief message on cell voicemail stating to call the office to schedule New patient appointmentwith Dr. Sadler or Meka Costa in [place]. Dena Wiggins documented in this encounterDayton Osteopathic Hospital06-06-2022 Miscellaneous Notes* Telephone Encounter - Luh Gallego - 10/15/2021 1:49 PM EDT Patient is scheduled with Dr. Solis on 11-05 Luh Gallego PSS * Telephone Encounter - Elli Solis Pss - 10/12/2021 3:11 PM EDT 1st attempt to reach patient. Left message for patient to call office to schedule consult to Ortho per PCP. * Telephone Encounter - Katlyn Almanza MA - 10/12/2021 3:07 PM EDT Please schedule patient for ORTHO. Katlyn Almanza MA documented in this encounterDayton Osteopathic Hospital06-06-2022 Miscellaneous Notes* Telephone Encounter - Summer Telles PA-C - 10/15/2021 11:39 AM EDT Noted. * Telephone Encounter - Shandra Leavitt RN - 10/15/2021 11:24 AM EDT Patient calls and notified of provider instructions. Patient is willing to try just a half tablet to see what that does. Shandra Leavitt RN * Telephone Encounter - Katlyn Almanza MA - 10/15/2021 9:41 AM EDT Left message for patient to contact office. Katlyn Almanza MA * Telephone Encounter - Summer Telles PA-C - 10/15/2021 9:29 AM EDT See if she would be willing to try just 1/2 tablet. Then if the symptoms continue we would probablywant to switch to something different. * Telephone Encounter - Vanessa Smith RN - 10/13/2021 11:17 AM EDT Patient calling to state she began taking Meloxicam on 10/11/[address] Johnson and states it has been working very well for her. She reports however, that she has began to feel very drowsyand very sleepy after taking this medication for the last couple of days. She states she read on the internet that this could be a sign of a serious side effect and she wanted to update Dr. Johnson. She plans to hold the medication until advised. Thank you. documented in this encounterDayton Osteopathic Hospital06-03-2022 Miscellaneous Notes* Telephone Encounter - Shandra Leavitt RN - 10/12/2021 9:49 AM EDT Patient calls and wanted provider to know that the meloxicam has worked wonders for her. Patient states that it was a great choice. Patient wanted to thank provider for prescribing this for her. Shandra Leavitt RN documented in this encounterDayton Osteopathic Hospital05-16-2022 Miscellaneous Notes* Telephone Encounter - Luis M Johnson MD - 09/24/2021 5:27 PM EDT The following approved medication requests have been transmitted electronically. Signed Prescriptions Disp Refills cyclobenzaprine (FLEXERIL) 10 mg tablet 60 tablet 2 Sig: Take 1 tablet by mouth twice daily as needed. ELBA: No Authorizing Provider: LUIS M JOHNSON MD * Telephone Encounter - Noel Davidson Ma - 09/24/2021 4:04 PM EDT MURRAY: 04/06/2021 Last refill: 03/21/2021 QTY: 60 Refills: 1 * Telephone Encounter - Lamar Quiles - 09/24/2021 3:57 PM EDT Patient has been identified by name and date of : Yes Pending Prescriptions Disp Refills CYCLOBENZAPRINE 10 MG TABLET 60 tablet 2 Sig: Take 1 tablet by mouth twice daily as needed. ELBA: No RX INSTRUCTIONS: Patient aware RX will be sent to pharmacy. Please call patient once submitted. Lamar Quiles documented in this encounterDayton Osteopathic Hospital05-03-2022 Miscellaneous Notes* Telephone Encounter - Joanne Lechuga Ma - 09/11/2021 11:33 AM EDT Patient was notified and r/s Joanne Lechuga Ma * Telephone Encounter - Joanne Lechuga Ma - 09/06/2021 4:49 PM EDT Template is till blocked did email staff to ask to open. Will call patient tomorrow when done. Joanne Lechuga Ma * Telephone Encounter - Luis M Johnson MD - 09/06/2021 3:49 PM EDT Patient's appt got cancelled on 10/10/2021 because I was going to be out of office however I will nowbe here 10/09/2021 - 10/11/21. Thi was to be a medicare wellness/extensive exam 40 min. Can we get her rescheduled. [facility] Narr[facility]* Problem Noted Date Resolved Date Diabetes mellitus type 2 with ketoacidosis, unco ntrolled 03/01/2015 05/28/2015 documented as of this encounter (statuses as of 09/11/2021) [facility] of Past illness Narrative* Problem Noted Date Resolved Date Diabetes mellitus type 2 with ketoacidosis, unco ntrolled 03/01/2015 05/28/2015 documented as of this encounter (statuses as of 09/24/2021) [facility] of Past illness Narrative* Problem Noted Date Resolved Date Diabetes mellitus type 2 with ketoacidosis, unco ntrolled 03/01/2015 05/28/2015 documented as of this encounter (statuses as of 10/12/2021) [facility] of Past illness Narrative* Problem Noted Date Resolved Date Diabetes mellitus type 2 with ketoacidosis, unco ntrolled 03/01/2015 05/28/2015 documented as of this encounter (statuses as of 10/15/2021) [facility] of Past illness Narrative* Problem Noted Date Resolved Date Diabetes mellitus type 2 with ketoacidosis, unco ntrolled 03/01/2015 05/28/2015 documented as of this encounter (statuses as of 10/15/2021) [facility] illness Narrative* Problem Noted Date Resolved Date Diabetes mellitus type 2 with ketoacidosis, unco ntrolled 03/01/2015 05/28/2015 documented as of this encounter (statuses as of 10/17/2021) [facility] illness Narrative* Problem Noted Date Resolved Date Diabetes mellitus type 2 with ketoacidosis, unco ntrolled 03/01/2015 05/28/2015 documented as of this encounter (statuses as of 10/22/2021) [facility] Past illness Narrative* Problem Noted Date Resolved Date Diabetes mellitus type 2 with ketoacidosis, unco ntrolled 03/01/2015 05/28/2015 documented as of this encounter (statuses as of 10/24/2021) [facility] Narrative* Problem Noted Date Resolved Date Diabetes mellitus type 2 with ketoacidosis, unco ntrolled 03/01/2015 05/28/2015 documented as of this encounter (statuses as of 10/24/2021) [facility] Narrative* Problem Noted Date Resolved Date Diabetes mellitus type 2 with ketoacidosis, unco ntrolled 03/01/2015 05/28/2015 documented as of this encounter (statuses as of 10/26/2021) [facility] Narrative* Problem Noted Date Resolved Date Diabetes mellitus type 2 with ketoacidosis, unco ntrolled 03/01/2015 05/28/2015 documented as of this encounter (statuses as of 10/30/2021) [facility] Narrative* Problem Noted Date Resolved Date Diabetes mellitus type 2 with ketoacidosis, unco ntrolled 03/01/2015 05/28/2015 documented as of this encounter (statuses as of 11/05/2021) [facility] Narrative* Problem Noted Date Resolved Date Diabetes mellitus type 2 with ketoacidosis, unco ntrolled 03/01/2015 05/28/2015 documented as of this encounter (statuses as of 01/04/2022) [facility] Narrative* Problem Noted Date Resolved Date Diabetes mellitus type 2 with ketoacidosis, unco ntrolled 03/01/2015 05/28/2015 documented as of this encounter (statuses as of 01/08/2022) [facility] Narrative* Problem Noted Date Resolved Date Diabetes mellitus type 2 with ketoacidosis, unco ntrolled 03/01/2015 05/28/2015 documented as of this encounter (statuses as of 02/05/2022) [facility] Past illness Narrative* Problem Noted Date Resolved Date Diabetes mellitus type 2 with ketoacidosis, unco ntrolled 03/01/2015 05/28/2015 documented as of this encounter (statuses as of 03/28/2022) [facility] Narrative* Problem Noted Date Resolved Date Diabetes mellitus type 2 with ketoacidosis, unco ntrolled 03/01/2015 05/28/2015 documented as of this encounter (statuses as of 03/29/2022) [facility] Narrative* Problem Noted Date Resolved Date Diabetes mellitus type 2 with ketoacidosis, unco ntrolled 03/01/2015 05/28/2015 documented as of this encounter (statuses as of 04/13/2022) [facility] Narrative* Problem Noted Date Resolved Date Diabetes mellitus type 2 with ketoacidosis, unco ntrolled 03/01/2015 05/28/2015 documented as of this encounter (statuses as of 04/16/2022) [facility] Narrative* Problem Noted Date Resolved Date Diabetes mellitus type 2 with ketoacidosis, unco ntrolled 03/01/2015 05/28/2015 documented as of this encounter (statuses as of 04/16/2022) [facility] Narrative* Problem Noted Date Resolved Date Diabetes mellitus type 2 with ketoacidosis, unco ntrolled 03/01/2015 05/28/2015 documented as of this encounter (statuses as of 04/29/2022) [address]21-2015 History of Past illness Narrative* Problem Noted Date Resolved Date Diabetes mellitus type 2 with ketoacidosis, unco ntrolled 03/01/2015 05/28/2015 documented as of this encounter (statuses as of 06/06/2022) [facility] Narrative* Problem Noted Date Resolved Date Diabetes mellitus type 2 with ketoacidosis, unco ntrolled 03/01/2015 05/28/2015 documented as of this encounter (statuses as of 06/11/2022) [facility] illness Narrative* Problem Noted Date Resolved Date Diabetes mellitus type 2 with ketoacidosis, unco ntrolled 03/01/2015 05/28/2015 documented as of this encounter (statuses as of 07/09/2022) [facility] Narrative* Problem Noted Date Resolved Date Diabetes mellitus type 2 with ketoacidosis, unco ntrolled 03/01/2015 05/28/2015 documented as of this encounter (statuses as of 08/06/2022) [facility] Narrative* Problem Noted Date Resolved Date Diabetes mellitus type 2 with ketoacidosis, unco ntrolled 03/01/2015 05/28/2015 documented as of this encounter (statuses as of 10/14/2022) [facility] Past illness Narrative* Problem Noted Date Resolved Date Diabetes mellitus type 2 with ketoacidosis, unco ntrolled 03/01/2015 05/28/2015 documented as of this encounter (statuses as of 10/16/2022) [address]21-2015 History of Past illness Narrative* Problem Noted Date Resolved Date Diabetes mellitus type 2 with ketoacidosis, unco ntrolled 03/01/2015 05/28/2015 documented as of this encounter (statuses as of 10/22/2022) [facility] of Past illness Narrative* Problem Noted Date Diagnosed Date Resolved Date Diabetes mellitus type 2 wit h ketoacidosis, uncontrolled 03/01/2015 05/28/2015 documented as of this encounter (statuses as of 11/27/2022) [address]21-2015 History of Past illness Narrative* Problem Noted Date Diagnosed Date Resolved Date Diabetes mellitus type 2 wit h ketoacidosis, uncontrolled 03/01/2015 05/28/2015 documented as of this encounter (statuses as of 12/27/2022) [facility] Past illness Narrative* Problem Noted Date Diagnosed Date Resolved Date Diabetes mellitus type 2 wit h ketoacidosis, uncontrolled 03/01/2015 05/28/2015 documented as of this encounter (statuses as of 01/28/2023) [facility] Past illness Narrative* Problem Noted Date Diagnosed Date Resolved Date Diabetes mellitus type 2 wit h ketoacidosis, uncontrolled 03/01/2015 05/28/2015 documented as of this encounter (statuses as of 03/16/2023) [facility] of Past illness Narrative* Problem Noted Date Diagnosed Date Resolved Date Diabetes mellitus type 2 wit h ketoacidosis, uncontrolled 03/01/2015 05/28/2015 documented as of this encounter (statuses as of 03/18/2023) [facility] Past illness Narrative* Problem Noted Date Diagnosed Date Resolved Date Diabetes mellitus type 2 wit h ketoacidosis, uncontrolled 03/01/2015 05/28/2015 documented as of this encounter (statuses as of 03/19/2023) [facility] Past illness Narrative* Problem Noted Date Diagnosed Date Resolved Date Diabetes mellitus type 2 wit h ketoacidosis, uncontrolled 03/01/2015 05/28/2015 documented as of this encounter (statuses as of 03/19/2023) [facility] of Past illness Narrative* Problem Noted Date Diagnosed Date Resolved Date Diabetes mellitus type 2 wit h ketoacidosis, uncontrolled 03/01/2015 05/28/2015 documented as of this encounter (statuses as of 03/21/2023) [facility] Past illness Narrative* Problem Noted Date Diagnosed Date Resolved Date Diabetes mellitus type 2 wit h ketoacidosis, uncontrolled 03/01/2015 05/28/2015 documented as of this encounter (statuses as of 03/21/2023) [facility] Narrative* Problem Noted Date Diagnosed Date Resolved Date Diabetes mellitus type 2 wit h ketoacidosis, uncontrolled 03/01/2015 05/28/2015 documented as of this encounter (statuses as of 03/22/2023) [facility] Past illness Narrative* Problem Noted Date Diagnosed Date Resolved Date Diabetes mellitus type 2 wit h ketoacidosis, uncontrolled 03/01/2015 05/28/2015 documented as of this encounter (statuses as of 03/28/2023) [facility] of Past illness Narrative* Problem Noted Date Diagnosed Date Resolved Date Diabetes mellitus type 2 wit h ketoacidosis, uncontrolled 03/01/2015 05/28/2015 documented as of this encounter (statuses as of 03/29/2023) [facility] Past illness Narrative* Problem Noted Date Diagnosed Date Resolved Date Diabetes mellitus type 2 wit h ketoacidosis, uncontrolled 03/01/2015 05/28/2015 documented as of this encounter (statuses as of 03/31/2023) [facility] Narrative* Problem Noted Date Diagnosed Date Resolved Date Diabetes mellitus type 2 wit h ketoacidosis, uncontrolled 03/01/2015 05/28/2015 documented as of this encounter (statuses as of 04/15/2023) [facility] Narrative* Problem Noted Date Diagnosed Date Resolved Date Diabetes mellitus type 2 wit h ketoacidosis, uncontrolled 03/01/2015 05/28/2015 documented as of this encounter (statuses as of 04/16/2023) [facility] of Past illness Narrative* Problem Noted Date Diagnosed Date Resolved Date Diabetes mellitus type 2 wit h ketoacidosis, uncontrolled 03/01/2015 05/28/2015 documented as of this encounter (statuses as of 04/16/2023) [facility] Past [facility] Narrative* Problem Noted Date Diagnosed Date Resolved Date Diabetes mellitus type 2 wit h ketoacidosis, uncontrolled 03/01/2015 05/28/2015 documented as of this encounter (statuses as of 04/26/2023) [facility] illness Narrative* Problem Noted Date Diagnosed Date Resolved Date Diabetes mellitus type 2 wit h ketoacidosis, uncontrolled 03/01/2015 05/28/2015 documented as of this encounter (statuses as of 07/31/2023) [facility] No data available for this section [facility] Evaluation note* Diagnosis Fibromyalgia Mylagia and myositis, unspecified documented in this encounter [facility] note* Diagnosis Fibromyalgia- Primary Mylagia and myositis, unspecified Chronic pain syndrome Chronic sacroiliac strain, subsequent encounter documented in this encounter [facility] note* Diagnosis Encounter for screening mammogram for breast cancer documented in this encounter [facility] note* Diagnosis Left hand pain- Primary Pain in limb Bilateral shoulder pain, unspecified chronicity documented in this encounter [facility] note* Diagnosis Elevated blood pressure reading without diagnosis of hypertension- Primary documented in this encounter [facility] noteNo assessment information availableWDetwiler [facility] Work Phone: Evaluation note* Diagnosis Type 2 diabetes mellitus with microalbuminuria, unspecified whether prison insulin use (HCC)- Primary Diabetic eye exam ([facility]) Type II or unspecified type diabetes mellitus without mention of complication, not stated as uncontrolled Hypertension, essential Unspecified essential hypertension Mixed hyperlipidemia Gastroesophageal reflux disease without esophagitis Esophageal reflux Recurrent major depression in partial remission (HCC) Major depressive disorder, recurrent episode, in partial or unspecified remission Adjustment disorder, unspecified type Generalized anxiety disorder Recovering alcoholic (HCC) Other and unspecified alcohol dependence, unspecified drinking behavior WHIT (obstructive sleep apnea) Obstructive sleep apnea (adult) (pediatric) Morbid obesity with body mass index (BMI) of 45.0 to 49.9 in adult (HCC) Fibromyalgia Mylagia and myositis, unspecified Low serum vitamin B12 Screening for colon cancer Special screening for malignant neoplasms, colon Medication management Encounter for long-term (current) use of other medications documented in this encounter [facility] note* Diagnosis Hypertension, essential- Primary Unspecified essential hypertension Environmental allergies Other allergy, other than to medicinal agents documented in this encounter [facility] note* Diagnosis Hypertension, essential- Primary Unspecified essential hypertension documented in this encounter [facility] note* Diagnosis Hypertension, essential- Primary Unspecified essential hypertension Compulsive overeating Bulimia nervosa documented in this encounter [facility] note* Diagnosis Medicare annual wellness visit, subsequent- Primary Routine general medical examination at a [facility] Encounter for screening mammogram for malignant neoplasm of breast Other screening mammogram Counseling regarding advanced directives Other specified counseling Type 2 diabetes mellitus with microalbuminuria, unspecified whether long term care social worker insulin use (HCC) Morbid obesity with body mass index (BMI) of 45.0 to 49.9 in adult (HCC) Recovering alcoholic (HCC) Other and unspecified alcohol dependence, unspecified drinking behavior Recurrent major depression in partial remission (HCC) Major depressive disorder, recurrent episode, in partial or unspecified remission Hypertension, essential Unspecified essential hypertension Gastroesophageal reflux disease without esophagitis Esophageal reflux Generalized anxiety disorder Mixed hyperlipidemia WHIT (obstructive sleep apnea) Obstructive sleep apnea (adult) (pediatric) Fibromyalgia Mylagia and myositis, unspecified Screening breast examination Breast screening, unspecified [facility] Pain in right hip- Primary Pain in joint, pelvic region and thigh [facility] Diagnosis APPOINTMENT CANCELLED- Primary Pain of right hip [facility] Diagnosis Hypertension, essential Unspecified essential hypertension [facility] Diagnosis Pain in right hip Pain in joint, pelvic region and thigh [facility] Diagnosis Trochanteric bursitis of left hip- Primary Enthesopathy of hip region Primary osteoarthritis of right hip Primary localized osteoarthrosis, pelvic region and thigh Morbid obesity (HCC) Morbid obesity [facility] Diagnosis Hypertension, essential- Primary Unspecified essential hypertension Mixed hyperlipidemia Type 2 diabetes mellitus with microalbuminuria, unspecified whether long term care social worker insulin use ([facility]) Screening for colon cancer Special screening for malignant neoplasms, colon Hypercalcemia [facility] Diagnosis Encounter for screening mammogram for malignant neoplasm of breast Other screening mammogram [facility] Screening for colon cancer- Primary Special screening for malignant neoplasms, colon [facility] Diagnosis Primary osteoarthritis of right hip- Primary Primary localized osteoarthrosis, pelvic region and thigh Trochanteric bursitis of left hip Enthesopathy of hip region Morbid obesity (HCC) Morbid obesity [facility] Diagnosis Abnormal mammogram of left breast- Primary [facility] Diagnosis Hypertension, essential Unspecified essential hypertension [facility] Diagnosis Fibromyalgia- Primary Mylagia and myositis, unspecified DDD (degenerative disc disease), lumbar Degeneration of lumbar or lumbosacral intervertebral disc Generalized anxiety disorder Hypertension, essential Unspecified essential hypertension Gastroesophageal reflux disease without esophagitis Esophageal reflux Type 2 diabetes mellitus with microalbuminuria, unspecified whether long term care social worker insulin use ([facility]) WHIT (obstructive sleep apnea) Obstructive sleep apnea (adult) (pediatric) Adjustment disorder, unspecified type Mixed hyperlipidemia Encounter for immunization Need for other specified prophylactic vaccination against single bacterial disease Low serum vitamin B12 Morbid obesity with body mass index (BMI) of 45.0 to 49.9 in adult ([facility]) Recurrent major depression in partial remission (HCC) Major depressive disorder, recurrent episode, in partial or unspecified remission Chronic pain syndrome Primary osteoarthritis of right hip Primary localized osteoarthrosis, pelvic region and thigh documented in this encounter [facility] note* Diagnosis Abnormal mammogram of left breast documented in this encounter [facility] note* Diagnosis Generalized anxiety disorder Fibromyalgia Mylagia and myositis, unspecified documented in this encounter [facility] note* Diagnosis Medicare annual wellness visit, subsequent- Primary Routine general medical examination at a health care facility Type 2 diabetes mellitus with diabetic microalbuminuria, unspecified whether prison insulin use ([facility]) Diabetic eye exam ([facility]) Type II or unspecified type diabetes mellitus without mention of complication, not stated as uncontrolled Mixed hyperlipidemia Hypertension, essential Unspecified essential hypertension Gastroesophageal reflux disease without esophagitis Esophageal reflux Recurrent major depression in partial remission (HCC) Major depressive disorder, recurrent episode, in partial or unspecified remission Generalized anxiety disorder Adjustment disorder, unspecified type Fibromyalgia Mylagia and myositis, unspecified Recovering alcoholic (HCC) Other and unspecified alcohol dependence, unspecified drinking behavior Morbid obesity with body mass index (BMI) of 45.0 to 49.9 in adult ([facility]) Stasis dermatitis of right lower extremity due to peripheral venous hypertension WHIT (obstructive sleep apnea) Obstructive sleep apnea (adult) (pediatric) Foot callus Corns and callosities Osteopenia, senile Disorder of bone and cartilage, unspecified Encounter for immunization Need for other specified prophylactic vaccination against single bacterial disease Medication management Encounter for long-term (current) use of other medications Diabetic foot ([facility]) Type II or unspecified type diabetes mellitus with other specified manifestations, not stated as uncontrolled documented in this encounter [facility] note* Diagnosis Hypercalcemia- Primary documented in this encounter [facility] note* Diagnosis Fibromyalgia Mylagia and myositis, unspecified documented in this encounter [facility] note* Diagnosis Osteopenia, senile Disorder of bone and cartilage, unspecified documented in this encounter [facility] note* Diagnosis Hypercalcemia- Primary documented in this encounter [facility] note* Diagnosis Diabetic eye exam (HCC)- Primary Type II or unspecified type diabetes mellitus without mention of complication, not stated as uncontrolled documented in this encounter [facility] note* Diagnosis Hypertension, essential Unspecified essential hypertension documented in this encounter [facility] note* Diagnosis Hypertension, essential- Primary Unspecified essential hypertension Mixed hyperlipidemia Gastroesophageal reflux disease without esophagitis Esophageal reflux Type 2 diabetes mellitus with diabetic microalbuminuria, unspecified whether long term care social worker insulin use ([facility]) Encounter for screening mammogram for breast cancer WHIT (obstructive sleep apnea) Obstructive sleep apnea (adult) (pediatric) Recurrent major depression in partial remission (HCC) Major depressive disorder, recurrent episode, in partial or unspecified remission Generalized anxiety disorder Class 3 severe obesity with body mass index (BMI) of 40.0 to 44.9 in adult, unspecified obesity type, unspecified whether serious comorbidity present (HCC) Primary osteoarthritis of right hip Primary localized osteoarthrosis, pelvic region and thigh documented in this encounter [facility] note* Diagnosis Sore throat- Primary Acute pharyngitis Acute cough Sinobronchitis Unspecified sinusitis (chronic) Acute cough documented in this encounter [facility] note* Diagnosis Acute cough documented in this encounter [facility] note* Diagnosis Fibromyalgia Mylagia and myositis, unspecified documented in this encounter [facility] note* Diagnosis Medicare annual wellness visit, subsequent- Primary Routine general medical examination at a health care facility Type 2 diabetes mellitus with diabetic microalbuminuria, unspecified whether long term care social worker insulin use (HCC) Diabetic eye exam (HCC) Type II or unspecified type diabetes mellitus without mention of complication, not stated as uncontrolled Hypertension, essential Unspecified essential hypertension Mixed hyperlipidemia Gastroesophageal reflux disease without esophagitis Esophageal reflux Generalized anxiety disorder Recurrent major depression in partial remission Major depressive disorder, recurrent episode, in partial or unspecified remission Adjustment disorder, unspecified type Fibromyalgia Mylagia and myositis, unspecified Low serum vitamin B12 Morbid obesity with body mass index (BMI) of 45.0 to 49.9 in adult (HCC) Recovering alcoholic (HCC) Other and unspecified alcohol dependence, unspecified drinking behavior WHIT (obstructive sleep apnea) Obstructive sleep apnea (adult) (pediatric) Foot callus Corns and callosities Chronic pain syndrome Osteopenia, senile Disorder of bone and cartilage, unspecified Advance directive discussed with patient Other specified counseling Medication management Encounter for long-term (current) use of other medications Need for vaccination Need for prophylactic vaccination and inoculation against unspecified single disease Screening for colon cancer Special screening for malignant neoplasms, colon Encounter for screening mammogram for breast cancer Neoplasm of uncertain behavior of skin of face Neoplasm of uncertain behavior of skin [facility] No data available for this section [facility] Discharge instructionsAmbulatory Orders* Dermatology Location: None Selected [facility] [employer] Work Phone: Reason for referral (narrative)* Diagnostic Procedure Only (Routine) - Pending Review Specialty Diagnoses / Procedures Referred By Contac t Referred To Contact XR IMAGING Diagnoses Left hand pain Procedures XR HAND GENERAL 3V PA/LAT/OBL LEFT RADEX HAND MINIMUM 3 VIEWS Sundeep Solis MD [address] [place] [address] Xr Imaging Referral ID Status Reason Start Date Expiration Date Visits Requested Visits Authorized [id number] Pending Review Auto-Generat ed Referral 10/30/2021 11/29/2022 1 1 * Diagnostic Procedure Only (Routine) - Pending Review Specialty Diagnoses / Procedures Referred By Contpradeep t Referred To Contact XR IMAGING Diagnoses Bilateral shoulder pain, unspecified chronicity Procedures XR SHOULDER GENERAL 3V OR MORE AP/TRUE AP/OTHER RIGHT RADEX SHOULDER COMPLETE MINIMUM 2 VIEWS Sundeep Solis MD [address] [place] [address] Xr Imaging Referral ID Status Reason Start Date Expiration Date Visits Requested Visits Authorized [id number] Pending Review Auto-Generat ed Referral 10/30/2021 11/29/2022 1 1 * Diagnostic Procedure Only (Routine) - Pending Review Specialty Diagnoses / Procedures Referred By Contac t Referred To Contact XR IMAGING Diagnoses Bilateral shoulder pain, unspecified chronicity Procedures XR SHOULDER GENERAL 3V OR MORE AP/TRUE AP/OTHER LEFT RADEX SHOULDER COMPLETE MINIMUM 2 VIEWS Sundeep Solis MD [address] [place] [address] Xr Imaging Referral ID Status Reason Start Date Expiration Date Visits Requested Visits Authorized [id number] Pending Review Auto-Generat ed Referral 10/30/2021 11/29/2022 1 1 [facility] for referral (narrative)* Diagnostic Procedure Only (Routine) - Pending Review Specialty Diagnoses / Procedures Referred By Erikac t Referred To Contact BR IMAGING Diagnoses Encounter for screening mammogram for malignant neoplasm of breast Procedures MINI SCREENING SCREENING MAMMOGRAPHY BI 2-VIEW BREAST INC CAD Teddy Cox APRN.PERIOPERATIVE ASSISTANT [address] [place] [address] [facility] [address] [place] [address] Referral ID Status Reason Start Date Expiration Date Visits Requested Visits Authorized [id number] Pending Review Auto-Generat ed Referral 10/14/2022 11/13/2023 1 1 [facility] for referral (narrative)* Diagnostic Procedure Only (Routine) - Pending Review Specialty Diagnoses / Procedures Referred By Contac t Referred To Contact XR IMAGING Diagnoses Pain in right hip Procedures XR HIP GENERAL 3V PELV/AP/LAT RIGHT RADEX HIP UNILATERAL WITH PELVIS 2-3 VIEWS Sundeep Solis MD [address] [place] [address] Xr Imaging Referral ID Status Reason Start Date Expiration Date Visits Requested Visits Authorized [id number] Pending Review Auto-Generat ed Referral 10/16/2022 11/15/2023 1 1 [facility] for referral (narrative)* Diagnostic Procedure Only (Routine) - Closed Specialty Diagnoses / Procedures Referred By Erikac t Referred To Contact XR IMAGING Diagnoses Pain in right hip Procedures XR HIP GENERAL 3V PELV/AP/LAT RIGHT RADEX HIP UNILATERAL WITH PELVIS 2-3 VIEWS Sundeep Solis MD [address] [place] [address] [place] [address] Referral ID Status Reason Start Date Expiration Date V isits Requested Visits Authorized [id number] Closed Auto-Generate d Referral 10/16/2022 11/15/2023 1 1 [facility] for referral (narrative)* Diagnostic Procedure Only (Routine) - Pending Review Specialty Diagnoses / Procedures Referred By Yanci t Referred To Contact BR IMAGING Diagnoses Abnormal mammogram of left breast Procedures US BREAST LTD LEFT US BREAST UNI REAL TIME WITH IMAGE LIMITED Teddy Cox APRN.PERIOPERATIVE ASSISTANT [address] [place] [address] [facility] [address] [place] [address] Referral ID Status Reason Start Date Expiration Date Visits Requested Visits Authorized [id number] Pending Review Auto-Generat ed Referral 3 04/19/2024 1 1 * Diagnostic Procedure Only (Routine) - Authorized Specialty Diagnoses / Procedures Referred By Yanci t Referred To Contact BR IMAGING Diagnoses Abnormal mammogram of left breast Procedures MINI DIAGNOSTIC LEFT DIAGNOSTIC MAMMOGRAPHY COMPUTER-AIDED DETCJ UNI Teddy Cox APRN.PERIOPERATIVE ASSISTANT [address] [place] [address] [facility] [address] [place] [address] Referral ID Status Reason Start Date Expiration Date Visits Requested Visits Authorized [id number] Authorized Auto-Generat ed Referral 3 04/19/2024 1 1 [facility] for referral (narrative)* Diagnostic Procedure Only (Routine) - Authorized Specialty Diagnoses / Procedures Referred By Yanci t Referred To Contact XR IMAGING Diagnoses Osteopenia, senile Procedures DXA-AXIAL SKELETON Luis M Johnson MD [address] [place] [address] [place] [address] Referral ID Status Reason Start Date Expiration Date Visits Requested Visits Authorized [id number] Authorized Auto-Generat ed Referral 10/17/2023 11/15/2024 1 1 * Consult, Test, Treat (Routine) - Pending Review Specialty Diagnoses / Procedures Referred By Yanci barrow Referred To Contact Podiatry Diagnoses Type 2 diabetes mellitus with diabetic microalbuminuria, unspecified whether prison insulin use (HCC) Diabetic foot (HCC) Procedures CONSULT TO PODIATRY OFFICE/OUTPATIENT NEW HIGH MDM 60 MINUTES Luis M Johnson MD [address] [place] [id number] Referral ID Status Reason Start Date Expiration Date Visits Requested Visits Authorized [id number] Pending Review PCP Requested Referral 10/17/2023 10/16/2024 1 1 [facility] for referral (narrative)* Diagnostic Procedure Only (Routine) - New Request Specialty Diagnoses / Procedures Referred By Yanci barrow Referred To Contact BR IMAGING Diagnoses Encounter for screening mammogram for breast cancer Procedures MINI SCREENING W IDRIS SCREENING DIGITAL BREAST TOMOSYNTHESIS BI SCREENING MAMMOGRAPHY BI 2-VIEW BREAST INC Teddy Harrlel APRN.CNP [address] [place] [address] [facility] [address] [place] [address] Referral ID Status Reason Start Date Expiration Date Visits Requested Visits Authorized [id number] New Request Auto-Generat ed Referral 04/19/2024 05/19/2025 1 1 [facility] for visit Narrative* Diagnostic Procedure Only (Routine) - Closed Specialty Diagnoses / Procedures Referred By Contac t Referred To Contact XR IMAGING Diagnoses Pain in right hip Procedures XR HIP GENERAL 3V PELV/AP/LAT RIGHT RADEX HIP UNILATERAL WITH PELVIS 2-3 VIEWS Sundeep Solis MD [address] [place] [address] [place] [address] Referral ID Status Reason Start Date Expiration Date V isits Requested Visits Authorized [id number] Closed Auto-Generate d Referral 10/16/2022 11/15/2023 1 1 [facility] for visit Narrative* Diagnostic Procedure Only (Routine) - Closed Specialty Diagnoses / Procedures Referred By Contac t Referred To Contact BR IMAGING Diagnoses Encounter for screening mammogram for malignant neoplasm of breast Procedures MINI SCREENING SCREENING MAMMOGRAPHY BI 2-VIEW BREAST INC CAD Teddy Cox, ECHOCARDIOGRAPHY TECHNOLOGIST.PERIOPERATIVE ASSISTANT [address] [place] [address] [facility] [address] [place] [address] Referral ID Status Reason Start Date Expiration Date V isits Requested Visits Authorized [id number] Closed Auto-Generate d Referral 10/14/2022 11/13/2023 1 1 [facility] for visit Narrative* Diagnostic Procedure Only (Routine) - Closed Specialty Diagnoses / Procedures Referred By Contac t Referred To Contact BR IMAGING Diagnoses Abnormal mammogram of left breast Procedures MINI DIAGNOSTIC LEFT DIAGNOSTIC MAMMOGRAPHY COMPUTER-AIDED DETCJ UNI Teddy Cox, ECHOCARDIOGRAPHY TECHNOLOGIST.PERIOPERATIVE ASSISTANT [address] [place] [address] [facility] [address] [place] [address] Referral ID Status Reason Start Date Expiration Date V isits Requested Visits Authorized [id number] Closed Auto-Generate d Referral 03/21/2023 04/19/2024 1 1 [facility] for visit Narrative* Diagnostic Procedure Only (Routine) - Closed Specialty Diagnoses / Procedures Referred By Contac t Referred To Contact XR IMAGING Diagnoses Osteopenia, senile Procedures DXA-AXIAL SKELETON Luis M Johnson MD [address] [place] [address] [facility] [address] Referral ID Status Reason Start Date Expiration Date V isits Requested Visits Authorized [id number] Closed Auto-Generate d Referral 10/17/2023 11/15/2024 1 1 [facility] Advance Directives Documents on File Type Date Recorded Patient Embossing Calender Operator Expl anation Advance Directive(s) Documents on File Type Date Recorded Patient Embossing Calender Operator Expl anation Advance Directive(s) Advance Directive Response Recorded Date/ Time Advance Directives No June 03, 2013 8:10pm Living Will No April 06, 021 6:18pm Power of Asphalt Paving Supervisor No April 06, 2021 6:18pm Advance Directive Response Recorded Date/ Time Advance Directives No June 03, 2013 7:10pm Living Will No April 06, 021 5:18pm Power of Asphalt Paving Supervisor No April 06, 2021 5:18pm Advance Directive Response Recorded Date/ Time Advance Directives No June 03, 2013 8:10pm Advance Directive Response Recorded Date/ Time Advance Directives No November 24 11:32am Summary Purpose Family History Relationship Condition Age at Onset Recorded Date/T neyda Not Specified Diabetes mellitus Unknown High blood cholesterol Unknown Anemia Unknown Angina at rest Unknown Arthritis Unknown Depression Unknown Malignant melanoma Unknown Malignant neoplasm of breast Unknown Malignant neoplasm Unknown Hypertension Unknown Reason for Referral Specialty Diagnoses / Procedures Referred By Yanci barrow Referred To Contact [facility] Diagnoses Trochanteric bursitis of left hip Primary osteoarthritis of right hip Morbid obesity (HCC) Procedures CONSULT TO PHYSICAL THERAPY PHYSICAL THERAPY EVALUATION HIGH COMPLEX 45 MINS Stormy Hamilton PA-C [address] [place] [address] [facility] [place] [address] [place] [address] Referral ID Status Reason Start Date Expiration Date Visits Requested Visits Authorized [id number] Authorized Auto-Generat ed Referral 05/12/2022 05/11/2023 99 99 Specialty Diagnoses / Procedures Referred By Yanci barrow Referred To Contact Diagnoses Compulsive overeating Procedures CONSULT TO WELLNESS PHYSICIAN OFFICE/OUTPATIENT NEW [facility] MDM 60-74 MINUTES Teddy Cox, LENKA.PERIOPERATIVE ASSISTANT [address] [place] [address] Referral ID Status Reason Start Date Expiration Date Visits Requested Visits Authorized [id number] Authorized PCP Requested Referral 08/06/2022 08/06/2023 1 1 Specialty Diagnoses / Procedures Referred By Contac t Referred To Contact Pain Management Diagnoses Fibromyalgia Chronic pain syndrome Chronic sacroiliac strain, subsequent encounter Procedures CONSULT TO PAIN MGT OFFICE/OUTPATIENT NEW HIGH MDM 60-74 MINUTES Summer Telles PA-C [address] [place] [address] Referral ID Status Reason Start Date Expiration Date Visits Requested Visits Authorized [id number] Authorized PCP Requested Referral 10/22/2021 10/22/2022 1 1 Chief Complaint and Reason for Visit Chief Complaint TYPE 2 DM Chief Complaint TYPE 2 DM TYPE 2 DM Chief Complaint TYPE 2 DM TYPE 2 DM TYPE 2 DM Chief Complaint Admit Date NEOPLASM R EAR November 19, 2024 1:06 pm Additional Source Comments Source Comments (unrecognize d section and content) In the event this informatio n is protected by the Federal Confidentiality of Alcohol and Drug Abuse Patient Records regulations: The Federal rules restrict any use of the information to criminally investigate or prosecute any alcohol or drug abuse patient.[facility] the event this information is protected by the Federal Confidentiality of Alcohol and Drug Abuse Patient Records regulations: The Federal rules restrict any use of the information to criminally investigate or prosecute any alcohol or drug abuse patient.[facility] the event this information is protected by the Federal Confidentiality of Alcohol and Drug Abuse Patient Records regulations: The Federal rules restrict any use of the information to criminally investigate or prosecute any alcohol or drug abuse patient.[facility] the event this information is protected by the Federal Confidentiality of Alcohol and Drug Abuse Patient Records regulations: The Federal rules restrict any use of the information to criminally investigate or prosecute any alcohol or drug abuse patient.[facility] the event this information is protected by the Federal Confidentiality of Alcohol and Drug Abuse Patient Records regulations: The Federal rules restrict any use of the information to criminally investigate or prosecute any alcohol or drug abuse patient.[facility] the event this information is protected by the Federal Confidentiality of Alcohol and Drug Abuse Patient Records regulations: The Federal rules restrict any use of the information to criminally investigate or prosecute any alcohol or drug abuse patient.[facility] the event this information is protected by the Federal Confidentiality of Alcohol and Drug Abuse Patient Records regulations: The Federal rules restrict any use of the information to criminally investigate or prosecute any alcohol or drug abuse patient.[facility] the event this information is protected by the Federal Confidentiality of Alcohol and Drug Abuse Patient Records regulations: The Federal rules restrict any use of the information to criminally investigate or prosecute any alcohol or drug abuse patient.[facility] the event this information is protected by the Federal Confidentiality of Alcohol and Drug Abuse Patient Records regulations: The Federal rules restrict any use of the information to criminally investigate or prosecute any alcohol or drug abuse patient.[facility] the event this information is protected by the Federal Confidentiality of Alcohol and Drug Abuse Patient Records regulations: The Federal rules restrict any use of the information to criminally investigate or prosecute any alcohol or drug abuse patient.[facility] the event this information is protected by the Federal Confidentiality of Alcohol and Drug Abuse Patient Records regulations: The Federal rules restrict any use of the information to criminally investigate or prosecute any alcohol or drug abuse patient.[facility] the event this information is protected by the Federal Confidentiality of Alcohol and Drug Abuse Patient Records regulations: The Federal rules restrict any use of the information to criminally investigate or prosecute any alcohol or drug abuse patient.[facility] the event this information is protected by the Federal Confidentiality of Alcohol and Drug Abuse Patient Records regulations: The Federal rules restrict any use of the information to criminally investigate or prosecute any alcohol or drug abuse patient.[facility] the event this information is protected by the Federal Confidentiality of Alcohol and Drug Abuse Patient Records regulations: The Federal rules restrict any use of the information to criminally investigate or prosecute any alcohol or drug abuse patient.[facility] the event this information is protected by the Federal Confidentiality of Alcohol and Drug Abuse Patient Records regulations: The Federal rules restrict any use of the information to criminally investigate or prosecute any alcohol or drug abuse patient.[facility] the event this information is protected by the Federal Confidentiality of Alcohol and Drug Abuse Patient Records regulations: The Federal rules restrict any use of the information to criminally investigate or prosecute any alcohol or drug abuse patient.[facility] the event this information is protected by the Federal Confidentiality of Alcohol and Drug Abuse Patient Records regulations: The Federal rules restrict any use of the information to criminally investigate or prosecute any alcohol or drug abuse patient.[facility] the event this information is protected by the Federal Confidentiality of Alcohol and Drug Abuse Patient Records regulations: The Federal rules restrict any use of the information to criminally investigate or prosecute any alcohol or drug abuse patient.[facility] the event this information is protected by the Federal Confidentiality of Alcohol and Drug Abuse Patient Records regulations: The Federal rules restrict any use of the information to criminally investigate or prosecute any alcohol or drug abuse patient.[facility] the event this information is protected by the Federal Confidentiality of Alcohol and Drug Abuse Patient Records regulations: The Federal rules restrict any use of the information to criminally investigate or prosecute any alcohol or drug abuse patient.[facility] the event this information is protected by the Federal Confidentiality of Alcohol and Drug Abuse Patient Records regulations: The Federal rules restrict any use of the information to criminally investigate or prosecute any alcohol or drug abuse patient.[facility] the event this information is protected by the Federal Confidentiality of Alcohol and Drug Abuse Patient Records regulations: The Federal rules restrict any use of the information to criminally investigate or prosecute any alcohol or drug abuse patient.[facility]In the event this information is protected by the Federal Confidentiality of Alcohol and Drug Abuse Patient Records regulations: The Federal rules restrict any use of the information to criminally investigate or prosecute any alcohol or drug abuse patient.[facility] the event this information is protected by the Federal Confidentiality of Alcohol and Drug Abuse Patient Records regulations: The Federal rules restrict any use of the information to criminally investigate or prosecute any alcohol or drug abuse patient.[facility] the event this information is protected by the Federal Confidentiality of Alcohol and Drug Abuse Patient Records regulations: The Federal rules restrict any use of the information to criminally investigate or prosecute any alcohol or drug abuse patient.[facility] the event this information is protected by the Federal Confidentiality of Alcohol and Drug Abuse Patient Records regulations: The Federal rules restrict any use of the information to criminally investigate or prosecute any alcohol or drug abuse patient.[facility] the event this information is protected by the Federal Confidentiality of Alcohol and Drug Abuse Patient Records regulations: The Federal rules restrict any use of the information to criminally investigate or prosecute any alcohol or drug abuse patient.[facility] the event this information is protected by the Federal Confidentiality of Alcohol and Drug Abuse Patient Records regulations: The Federal rules restrict any use of the information to criminally investigate or prosecute any alcohol or drug abuse patient.[facility]In the event this information is protected by the Federal Confidentiality of Alcohol and Drug Abuse Patient Records regulations: The Federal rules restrict any use of the information to criminally investigate or prosecute any alcohol or drug abuse patient.[facility]In the event this information is protected by the Federal Confidentiality of Alcohol and Drug Abuse Patient Records regulations: The Federal rules restrict any use of the information to criminally investigate or prosecute any alcohol or drug abuse patient.[facility]In the event this information is protected by the Federal Confidentiality of Alcohol and Drug Abuse Patient Records regulations: The Federal rules restrict any use of the information to criminally investigate or prosecute any alcohol or drug abuse patient.[facility]In the event this information is protected by the Federal Confidentiality of Alcohol and Drug Abuse Patient Records regulations: The Federal rules restrict any use of the information to criminally investigate or prosecute any alcohol or drug abuse patient.[facility]In the event this information is protected by the Federal Confidentiality of Alcohol and Drug Abuse Patient Records regulations: The Federal rules restrict any use of the information to criminally investigate or prosecute any alcohol or drug abuse patient.[facility]In the event this information is protected by the Federal Confidentiality of Alcohol and Drug Abuse Patient Records regulations: The Federal rules restrict any use of the information to criminally investigate or prosecute any alcohol or drug abuse patient.[facility]In the event this information is protected by the Federal Confidentiality of Alcohol and Drug Abuse Patient Records regulations: The Federal rules restrict any use of the information to criminally investigate or prosecute any alcohol or drug abuse patient.[facility]In the event this information is protected by the Federal Confidentiality of Alcohol and Drug Abuse Patient Records regulations: The Federal rules restrict any use of the information to criminally investigate or prosecute any alcohol or drug abuse patient.[facility]In the event this information is protected by the Federal Confidentiality of Alcohol and Drug Abuse Patient Records regulations: The Federal rules restrict any use of the information to criminally investigate or prosecute any alcohol or drug abuse patient.[facility]In the event this information is protected by the Federal Confidentiality of Alcohol and Drug Abuse Patient Records regulations: The Federal rules restrict any use of the information to criminally investigate or prosecute any alcohol or drug abuse patient.[facility]In the event this information is protected by the Federal Confidentiality of Alcohol and Drug Abuse Patient Records regulations: The Federal rules restrict any use of the information to criminally investigate or prosecute any alcohol or drug abuse patient.[facility]In the event this information is protected by the Federal Confidentiality of Alcohol and Drug Abuse Patient Records regulations: The Federal rules restrict any use of the information to criminally investigate or prosecute any alcohol or drug abuse patient.[facility]In the event this information is protected by the Federal Confidentiality of Alcohol and Drug Abuse Patient Records regulations: The Federal rules restrict any use of the information to criminally investigate or prosecute any alcohol or drug abuse patient.[facility] HospitalIn the event this information is protected by the Federal Confidentiality of Alcohol and Drug Abuse Patient Records regulations: The Federal rules restrict any use of the information to criminally investigate or prosecute any alcohol or drug abuse patient.[facility]In the event this information is protected by the Federal Confidentiality of Alcohol and Drug Abuse Patient Records regulations: The Federal rules restrict any use of the information to criminally investigate or prosecute any alcohol or drug abuse patient.[facility] HospitalIn the event this information is protected by the Federal Confidentiality of Alcohol and Drug Abuse Patient Records regulations: The Federal rules restrict any use of the information to criminally investigate or prosecute any alcohol or drug abuse patient.[facility] HospitalIn the event this information is protected by the Federal Confidentiality of Alcohol and Drug Abuse Patient Records regulations: The Federal rules restrict any use of the information to criminally investigate or prosecute any alcohol or drug abuse patient.[facility] HospitalIn the event this information is protected by the Federal Confidentiality of Alcohol and Drug Abuse Patient Records regulations: The Federal rules restrict any use of the information to criminally investigate or prosecute any alcohol or drug abuse patient.[facility] HospitalIn the event this information is protected by the Federal Confidentiality of Alcohol and Drug Abuse Patient Records regulations: The Federal rules restrict any use of the information to criminally investigate or prosecute any alcohol or drug abuse patient.[facility] HospitalIn the event this information is protected by the Federal Confidentiality of Alcohol and Drug Abuse Patient Records regulations: The Federal rules restrict any use of the information to criminally investigate or prosecute any alcohol or drug abuse patient.[facility] HospitalIn the event this information is protected by the Federal Confidentiality of Alcohol and Drug Abuse Patient Records regulations: The Federal rules restrict any use of the information to criminally investigate or prosecute any alcohol or drug abuse patient.[facility] HospitalIn the event this information is protected by the Federal Confidentiality of Alcohol and Drug Abuse Patient Records regulations: The Federal rules restrict any use of the information to criminally investigate or prosecute any alcohol or drug abuse patient.[facility] HospitalIn the event this information is protected by the Federal Confidentiality of Alcohol and Drug Abuse Patient Records regulations: The Federal rules restrict any use of the information to criminally investigate or prosecute any alcohol or drug abuse patient.[facility] HospitalIn the event this information is protected by the Federal Confidentiality of Alcohol and Drug Abuse Patient Records regulations: The Federal rules restrict any use of the information to criminally investigate or prosecute any alcohol or drug abuse patient.[facility] HospitalIn the event this information is protected by the Federal Confidentiality of Alcohol and Drug Abuse Patient Records regulations: The Federal rules restrict any use of the information to criminally investigate or prosecute any alcohol or drug abuse patient.[facility] HospitalIn the event this information is protected by the Federal Confidentiality of Alcohol and Drug Abuse Patient Records regulations: The Federal rules restrict any use of the information to criminally investigate or prosecute any alcohol or drug abuse patient.[facility] HospitalIn the event this information is protected by the Federal Confidentiality of Alcohol and Drug Abuse Patient Records regulations: The Federal rules restrict any use of the information to criminally investigate or prosecute any alcohol or drug abuse patient.[facility] HospitalIn the event this information is protected by the Federal Confidentiality of Alcohol and Drug Abuse Patient Records regulations: The Federal rules restrict any use of the information to criminally investigate or prosecute any alcohol or drug abuse patient.[facility] ClinicIn the event this information is protected by the Federal Confidentiality of Alcohol and Drug Abuse Patient Records regulations: The Federal rules restrict any use of the information to criminally investigate or prosecute any alcohol or drug abuse patient.[facility] HospitalIn the event this information is protected by the Federal Confidentiality of Alcohol and Drug Abuse Patient Records regulations: The Federal rules restrict any use of the information to criminally investigate or prosecute any alcohol or drug abuse patient.[facility] HospitalIn the event this information is protected by the Federal Confidentiality of Alcohol and Drug Abuse Patient Records regulations: The Federal rules restrict any use of the information to criminally investigate or prosecute any alcohol or drug abuse patient.[facility] HospitalIn the event this information is protected by the Federal Confidentiality of Alcohol and Drug Abuse Patient Records regulations: The Federal rules restrict any use of the information to criminally investigate or prosecute any alcohol or drug abuse patient.[facility] HospitalIn the event this information is protected by the Federal Confidentiality of Alcohol and Drug Abuse Patient Records regulations: The Federal rules restrict any use of the information to criminally investigate or prosecute any alcohol or drug abuse patient.[facility] HospitalIn the event this information is protected by the Federal Confidentiality of Alcohol and Drug Abuse Patient Records regulations: The Federal rules restrict any use of the information to criminally investigate or prosecute any alcohol or drug abuse patient.[facility] HospitalIn the event this information is protected by the Federal Confidentiality of Alcohol and Drug Abuse Patient Records regulations: The Federal rules restrict any use of the information to criminally investigate or prosecute any alcohol or drug abuse patient.[facility] HospitalIn the event this information is protected by the Federal Confidentiality of Alcohol and Drug Abuse Patient Records regulations: The Federal rules restrict any use of the information to criminally investigate or prosecute any alcohol or drug abuse patient.[facility] HospitalIn the event this information is protected by the Federal Confidentiality of Alcohol and Drug Abuse Patient Records regulations: The Federal rules restrict any use of the information to criminally investigate or prosecute any alcohol or drug abuse patient.[facility] HospitalIn the event this information is protected by the Federal Confidentiality of Alcohol and Drug Abuse Patient Records regulations: The Federal rules restrict any use of the information to criminally investigate or prosecute any alcohol or drug abuse patient.[facility] HospitalIn the event this information is protected by the Federal Confidentiality of Alcohol and Drug Abuse Patient Records regulations: The Federal rules restrict any use of the information to criminally investigate or prosecute any alcohol or drug abuse patient.[facility] HospitalIn the event this information is protected by the Federal Confidentiality of Alcohol and Drug Abuse Patient Records regulations: The Federal rules restrict any use of the information to criminally investigate or prosecute any alcohol or drug abuse patient.[facility] Reason for Visit (unrecogniz ed section and content) Reason Comments Appointment Reason Onset Date Comments Refill Request 09/24/2021 Reason Comments Patient Update FYI-No Action Needed Reason Comments Patient Update Patient Question Reason Comments Referral Request Reason Comments Results Reason Comments Recheck Reason Comments Orders Reason Onset Date Comments Population Health Navigation Outreach 01/08/2022 [employer] Care Gaps Reason Onset Date Comments flu shot received 02/05/2022 Reason Onset Date Comments [facility] Health Navigation Outreach 03/28/2022 [employer] care gap Reason Onset Date Comments Refill Request 03/29/2022 Reason Comments Insurance Authorization cyclobenzaprine Reason Comments Refill Request Reason Comments Follow Up Blood pressure Reason Comments Follow Up Reason Comments Follow Up Reason Comments Medicare Wellness Exam Reason Comments Reason Comments New Pain Referred by Dr Johnson Appointment Cancelled Specialty Diagnoses / Procedures Referred By Yanci barrow Referred To Contact Orthopedics Diagnoses Pain of right hip Procedures CONSULT TO ORTHOPAEDICS OFFICE/OUTPATIENT [facility] 60-74 MINUTES Luis M Johnson MD [address] [place] [address] Referral ID Status Reason Start Date Expiration Date Visits Requested Visits Authorized [id number] Authorized PCP Requested Referral 09/30/2022 09/30/2023 1 1 Reason Onset Date Comments Refill Request 12/27/2022 Reason Comments New Pain Specialty Diagnoses / Procedures Referred By Yanci barrow Referred To Contact Orthopedics Diagnoses Pain of right hip Procedures CONSULT TO ORTHOPAEDICS OFFICE/OUTPATIENT NEW HIGH MDM 60-74 MINUTES Luis M Johnson MD [address] [place] [address] Referral ID Status Reason Start Date Expiration Date V isits Requested Visits Authorized [id number] Closed PCP Requested Referral 09/30/2022 09/30/2023 1 1 Reason Onset Date Comments Population Health Navigation Outreach 03/18/2023 [employer] care gaps Reason Comments Stool lab order IFOBT Reason Comments Mammogram Result Call Back Reason Comments PT Eval Specialty Diagnoses / Procedures Referred By Yanci t Referred To Contact [facility] Diagnoses Trochanteric bursitis of left hip Primary osteoarthritis of right hip Morbid obesity (HCC) Procedures CONSULT TO PHYSICAL THERAPY PHYSICAL THERAPY EVALUATION HIGH COMPLEX 45 MINS Stormy Hamilton PA-C [address] [place] [address] [facility] [place] [id number] [place] [address] Referral ID Status Reason Start Date Expiration Date Visits Requested Visits Authorized [id number] Authorized Auto-Generat ed Referral 05/12/2022 05/11/2023 99 99 Reason Comments Results Reason Onset Date Comments Refill Request 03/29/2023 Reason Comments 6 Month Exam Reason Onset Date Comments Refill Request 07/31/2023 Reason Comments Medicare Wellness Exam Reason Onset Date Comments Refill Request 10/23/2023 Reason Comments Outside Diabetic Eye Exam Reason Onset Date Comments Refill Request 01/26/2024 Reason Comments Immunization update Reason Comments 6 Month Exam Reason Onset Date Comments Refill Request 04/23/2024 Reason Onset Date Comments Population Health Navigation Outreach 07/01/2024 [employer] High Risk- Attempt 1 Reason Comments Cough Chest congestion, bi lateral ears clogged x1 week, nasal congestion, ST Reason Onset Date Comments Refill Request 07/29/2024 Reason Onset Date Comments Population Health Navigation Outreach 08/05/2024 [employer] High Risk- Attempt 2 Reason Onset Date Comments Refill Request 10/26/2024 Care Teams (unrecognized sec tion and content) Last Putter Away Relationship Specialty Start Date End Date Luis M Johnson MD [address] [place], [place] [address] PCP - General Family Practice 10/02/16 Last Putter Away Relationship Specialty Start Date End Date Luis M Johnson MD [address] [place], [place] [id number] PCP - General Family Practice 10/02/16 Last Putter Away Relationship Specialty Start Date End Date Luis M Johnson MD [address] [place], [place] [id number] PCP - General Family Practice 10/02/16 Last Putter Away Relationship Specialty Start Date End Date Luis M Johnson MD [address] [facility] [place] [address] PCP - General Family Practice 10/02/16 Last Putter Away Relationship Specialty Start Date End Date Luis M Johnson MD [employer] [place] [address] PCP - General Family Practice 10/02/16 Last Putter Away Relationship Specialty Start Date End Date Luis M Johnson MD [address] [place] [address], [place] [address] PCP - General Family Practice 10/02/16 Last Putter Away Relationship Specialty Start Date End Date Luis M Johnson MD [address] [place] [address], [place] [address] PCP - General Family Practice 10/02/16 Last Putter Away Relationship Specialty Start Date End Date Luis M Johnson MD [address] [place] [address], [place] [address] PCP - General Family Practice 10/02/16 Last Putter Away Relationship Specialty Start Date End Date Luis M Johnson MD [address] [place] [address], [place] [address] PCP - General Family Practice 10/02/16 Last Putter Away Relationship Specialty Start Date End Date Luis M Johnson MD [employer] [place] [address] PCP - General Family Practice 10/02/16 Last Putter Away Relationship Specialty Start Date End Date Luis M Johnson MD [address] [place] [address], [place] [address] PCP - General Family Medicine 10/02/16 Last Putter Away Relationship Specialty Start Date End Date Luis M Johnson MD [address] [place] [address], [place] [address] PCP - General Family Medicine 10/02/16 Last Putter Away Relationship Specialty Start Date End Date Luis M Johnson MD [address] [facility] [place] [address] PCP - General Family Medicine 10/02/16 Last Putter Away Relationship Specialty [place] [address] [place] [address], [place] [address] PCP - General Family Medicine 10/02/16 Last Putter Away Relationship Specialty [place] [address] [place] [address] [place] [address] PCP - General Family Medicine 10/02/16 Last Putter Away Relationship Specialty Start Date End Date Luis M Johnson MD [address] [place] [address], [place] [address] PCP - General Family Medicine 10/02/16 Last Putter Away Relationship Specialty Start Date End Date Luis M Johnson MD [address] [place] [address], [place] [address] PCP - General Family Medicine 10/02/16 Last Putter Away Relationship Specialty Start Date End Date Luis M Johnson MD [address] [place] [address] [place] [address] PCP - General Family Medicine 10/02/16 Last Putter Away Relationship Specialty Start Date End Date Luis M Johnson MD [address] [place] [address], [place] [address] PCP - General Family Medicine 10/02/16 Last Putter Away Relationship Specialty Start Date End Date Luis M Johnson MD [address] [place] [address], [place] [address] PCP - General Family Medicine 10/02/16 Last Putter Away Relationship Specialty Start Date End Date Luis M Johnson MD [address] [facility] [place] [address] PCP - General Family Medicine 10/02/16 Last Putter Away Relationship Specialty Start Date End Date Luis M Johnson MD [address] [place] [address] PCP - General Family Medicine 10/02/16 Last Putter Away Relationship Specialty Start Date End Date Luis M Johnson MD [address] [place] [address] PCP - General Family Medicine 10/02/16 Last Putter Away Relationship Specialty Start Date End Date Luis M Johnson MD [address] [place] [address] PCP - General Family Medicine 10/02/16 Last Putter Away Relationship Specialty Start Date End Date Luis M Johnson MD [address] [place] [address] PCP - General Family Medicine 10/02/16 Last Putter Away Relationship Specialty Start Date End Date Luis M Johnson MD [address] [place] [address] PCP - General Family Medicine 10/02/16 Last Putter Away Relationship Specialty Start Date End Date Luis M Johnson MD [address] [place] [address] PCP - General Family Medicine 10/02/16 Last Putter Away Relationship Specialty Start Date End Date Luis M Johnson MD [address] [place] [address] PCP - General Family Medicine 10/02/16 Last Putter Away Relationship Specialty Start Date End Date Luis M Johnson MD [address] [place] [address] PCP - General Family Medicine 10/02/16 Last Putter Away Relationship Specialty Start Date End Date Luis M Johnson MD [address] [place] [address] PCP - General Family Medicine 10/02/16 Last Putter Away Relationship Specialty Start Date End Date Luis M Johnson MD [address] [place] [address] PCP - General Family Medicine 10/02/16 Last Putter Away Relationship Specialty Start Date End Date Luis M Johnson MD [address] [place] [address] PCP - General Family Medicine 10/02/16 Last Putter Away Relationship Specialty Start Date End Date Luis M Johnson MD [address] [place] [address] PCP - General Family Medicine 10/02/16 Last Putter Away Relationship Specialty Start Date End Date Luis M Johnson MD [address] [place] [address] PCP - General Family Medicine 10/02/16 Last Putter Away Relationship Specialty Start Date End Date Luis M Johnson MD [address] [place] [address] PCP - General Family Medicine 10/02/16 Last Putter Away Relationship Specialty Start Date End Date Luis M Johnson MD [address] [place] [address] PCP - General Family Medicine 10/02/16 Last Putter Away Relationship Specialty Start Date End Date Luis M Johnson MD [address] [place] [address] PCP - General Family Medicine 10/02/16 Last Putter Away Relationship Specialty Start Date End Date Luis M Johnson MD [address] [place] [address] PCP - General Family Medicine 10/02/16 Last Putter Away Relationship Specialty Start Date End Date Luis M Johnson MD [address] [place] [address] PCP - General Family Medicine 10/02/16 Last Putter Away Relationship Specialty Start Date End Date Luis M Johnson MD [address] [place] [address] PCP - General Family Medicine 10/02/16 Teddy Cox APRN.PERIOPERATIVE ASSISTANT [address] [place] [address] [employer] Planning Operator Family Medicine 04/17/24 Summer Telles PA-C [address] [place] [address] [employer] Planning Operator Family Medicine 04/17/24 Last Putter Away Relationship Specialty Start Date End Date Luis M Johnson MD [address] [place] [address] PCP - General Family Medicine 10/02/16 Teddy Cox APRN.PERIOPERATIVE ASSISTANT [address] [place] [address] Harpoon Engagement Planning Operator Family Medicine 04/17/24 Summer Telles PA-C [address] [facility] [place] [address] Harpoon Engagement Planning Operator Family [facility] 04/17/24 Last Putter Away Relationship Specialty Start Date End Date Luis M Johnson MD [address] [facility] [place] [address] PCP - General Family Medicine 10/02/16 Teddy Cox APRN.PERIOPERATIVE ASSISTANT [address] [place] [address] Harpoon Engagement Planning Operator Family Medicine 04/17/24 Summer Telles PA-C [address] [place] [address] [employer]poon Engagement Planning [facility] 04/[facility]/24 Last Putter Away Relationship Specialty Start Date End Date Luis M Johnson MD [address] [place] [address] PCP - General Family Medicine 10/02/16 Teddy Cox APRN.PERIOPERATIVE ASSISTANT [address] [place] [address] [employer] Engagement Planning Operator Family Medicine 04/17/24 Summer Telles PA-C [address] [place] [address] Harpoon Engagement Planning Operator Family Medicine 04/17/24 Last Putter Away Relationship Specialty Start Date End Date Luis M Johnson MD [address] [place] [address] PCP - General Family Medicine 10/02/16 Teddy Cox APRN.PERIOPERATIVE ASSISTANT [address] [place] [address] Harpoon Engagement Planning Operator Family Medicine 04/17/24 Summer Telles PA-C [address] [place] [address] Harpoon Engagement Planning Operator Family Medicine 04/17/24 Last Putter Away Relationship Specialty Start Date End Date Luis M Johnson MD [address] [place] [address] PCP - General Family Medicine 10/02/16 Teddy Cox APRN.PERIOPERATIVE ASSISTANT [employer] [place] [address] Harpoon Engagement Planning Operator Family Medicine 04/17/24 Summer Telles PA-C [address] [place] [address] Harpoon Engagement Planning Operator Family Medicine 04/17/24 Last Putter Away Relationship Specialty Start Date End Date Luis M Johnson MD [address] [place] [address] PCP - General Family Medicine 08/16/24 Teddy Cox APRN.PERIOPERATIVE ASSISTANT [employer] [place] [address] Harpoon Engagement Planning Operator Family Medicine 04/17/24 Summer Telles PA-C [address] [place] [address] [employer] Engagement Planning Operator Family Medicine 04/17/24 Last Putter Away Relationship Specialty Start Date End Date Luis M Johnson MD [address] [place] [address] PCP - General Family Medicine 08/16/24 Teddy Cox APRN.PERIOPERATIVE ASSISTANT [address] [place] [address] [employer] Engagement Planning Operator Family Medicine 10/11/24 Summer Telles PA-C [address] [place] [address] [employer] Engagement Planning Operator Family Medicine 10/11/24 Last Putter Away Relationship Specialty Start Date End Date Luis M Johnson MD [address] [place] [address] PCP - General Family Medicine 08/16/24 Teddy Cox APRN.PERIOPERATIVE ASSISTANT [address] [place] [address] [employer] Engagement Planning Operator Family Medicine 10/11/24 Summer Telles PA-C [address] [place] [address] Har[employer] Engagement Planning Operator Family Medicine 10/11/24 Last Putter Away Relationship Specialty Start Date End Date Luis M Johnson MD [address] [place] [address] PCP - General Family Medicine 08/16/24 Teddy Cox APRN.PERIOPERATIVE ASSISTANT [employer] [place] [address] Harpoon Engagement Planning Operator Family Medicine 10/11/24 Summer Telles PA-C [address] [place] [address] [employer] Engagement Planning Operator Family Medicine 10/11/24 Team Status: Active Member Role/Relationship Status Dates Summer YOU PA Family Provider Active Dr. Luis M Johnson MD Primary Care Provider Active Team Status: Inactive Member Role/Relationship Status Dates Dr. Luis M Johnson MD Primary Care Provider Active Start: November 19, 2024 End: November 19, 2024 Dr. Luis M Johnson MD Referring Provider Active Start: November 19, 2024 End: November 19, 2024 Dr. Tunde Resendiz MD Attending Provider Active Start: November 19, 2024 End: November 19, 2024 Team Status: Inactive Member Role/Relationship Status Dates Dr. Luis M Johnson MD Primary Care Provider Active Start: December 02, 2024 End: December 02, 2024 Dr. Luis M Johnson MD Referring Provider Active Start: December 02, 2024 End: December 02, 2024 Dr. Tunde Resendiz MD Attending Provider Active Start: December 02, 2024 End: December 02, 2024 INFORMATION SOURCE (unrecogn ized section and content) DATE CREATED AUTHOR 10/18/2021 [facility] DATE CREATED AUTHOR AUTHOR'S ORGANIZ ATION 10/30/2024 [facility] DATE CREATED AUTHOR AUTHOR'S ORGANIZ ATION 11/24/2024 [facility] Goals (unrecognized section and content) Goals may be documented in a n alternate section FOR RECORDS PERTAINING TO PATIENTS WHO ARE OR HAVE BEEN ENROLLED IN A CHEMICAL DEPENDENCY/SUBSTANCEABUSE PROGRAM, SOME INFORMATION MAY BE OMITTED. This clinical summary was aggregated from multiple sources. Caution should be exercised in using it in the provision of clinical care. This summary normalizes information from multiple sources, and as a consequence, information in this document may materially change the coding, format and clinical context of patient data. In addition, data may be omitted in some cases. CLINICAL DECISIONS SHOULD BE BASED ON THE PRIMARY CLINICAL RECORDS. [employer] [facility]. provides no warranty or guarantee of the accuracy or completeness of information in this document.
== END | disposition home or self-care (01) ==
LOC: LABSPEC 12-03 06:11
PROVIDERS: PCP Family Medicine; Referring Provider Surgery Plastic and Reconstructive Surgery; Visit Provider Surgery Plastic and Reconstructive Surgery
DX: L98.9 Disorder of the skin and subcutaneous tissue, unspecified (principal)
CPT/HCPCS: 88305

== ENCOUNTER → 2025-01-19 | Outpatient (CLI) | payer MEDICARE, SELFPAY ==
--- NOTE | 2025-01-19 14:50 | RAD_ITS ---
PROCEDURE: HIPS B/L 5 VIEWS W/ PELVIS 01/19/2025 REASON FOR EXAM: PAIN, bilaterally. TECHNIQUE: Procedure Code: [id number] Modality: DX Procedure: HIPS B/L 5 VIEWS W/ PELVIS Laterality: Bilateral COMPARISON: Left hip and pelvis study of 04/06/2021. RAD/Hips B/L min 2 views w/ Pelvis IMPRESSION: Prominent degenerative changes of the visualized lower thoracic spine again not ed. Mild sacroiliac joint degenerative changes are seen. On the left, a total hip prosthesis remains in place, without apparent complica tion. No evidence of loosening or metallic fracture. Progressive worsening of right hip joint degenerative changes seen, now moderat raman severe, with severe associated joint narrowing (most prominent superiorly) and increased osseous reactive changes, including s ubchondral cyst formation. No acute fracture or dislocation is seen. Reading Location: [place] [address]
--- NOTE | 2025-01-19 14:50 | RAD_ITS ---
PROCEDURE: SHOULDER MIN 2 VIEWS 01/19/2025 REASON FOR EXAM: PAIN TECHNIQUE: Procedure Code: RADSH Modality: DX Procedure: Four view right shoulder series and four view left shoulder series (combined dictation). COMPARISON: None. RAD/Shoulder min 2 Views IMPRESSION: On the right, moderate acromioclavicular joint degenerative changes are seen. Distal clavicular and inferior acromial spurring is noted. The right glenohumeral joint demonstrates at least moderate degenerative change s, with significant joint narrowing noted inferiorly. Prominent degenerative changes about the right humeral head greate r tuberosity also are seen, further suggesting the presence of chronic rotator cuff disease. No acute fracture or dislocation is seen. On the left, moderately severe acromioclavicular joint degenerative changes are seen, with prominent osteophytosis, including severe superior osteophytosis. Inferior acromial spurring is noted. In the pr esence of degenerative changes about the left humeral head greater tuberosity further suggest the likelihood of significant r otator cuff disease. The left glenohumeral joint demonstrates moderate to moderately severe degenera tive changes, with marked inferior joint narrowing noted. Mature heterotopic ossification seen inferior to the left glenohumeral joint, a s well. No acute fracture or dislocation is seen. Reading Location: [place] [id number]
--- NOTE | 2025-01-19 14:50 | RAD_ITS ---
PROCEDURE: LUMBAR SPINE 2 OR 3 VIEWS 01/19/2025 REASON FOR EXAM: DDD TECHNIQUE: Procedure Code: RADSPLL Modality: DX Procedure: LUMBAR SPINE 2 OR 3 VIEWS COMPARISON: None. FINDINGS: No evidence of acute fracture, vertebral body heights are grossly preserved. Grade 1 degenerative anterolisthesis of L4 on L5. Alignment is otherwise anatomic. Multilevel spondylotic changes with varying degrees of disc space narrowing, endplate sclerosis and anterior osteophytosis, which is bulky on the left at L2-3, and hypertrophic facet arthropathy. Partially imaged left hip arthroplasty hardware. RAD/Lumbar Spine 2 or 3 Views IMPRESSION: No evidence of fracture. Multilevel spondylotic changes with grade 1 anterolist hesis of L4 on L5. Reading Location: [facility]
--- OUTSIDE RECORDS SUMMARY | 2025-01-19 21:39 | XMS RPT_ITS | CCD ---
Author Organization 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 Luis M Johnson MD Primary Care Provider Dr. Luis M Johnson MD Referring Provider Dr. Tunde Resendiz MD Attending Provider Dr. Tunde Resendiz MD Referring Provider LUIS M JOHNSON Primary Care Unavailable LUIS M JOHNSON Primary Care Unavailable LUIS M BAEZ Referring Unavailable LUIS M JOHNSON Primary Care Unavailable LUIS M JOHNSON Referring Unavailable LUIS M JOHNSON Attending Unavailable LUIS M JOHNSON Primary Care Unavailable TEDDY COX Attending Unavailable LUIS M JOHNSON Primary Care Unavailable LUIS M JOHNSON Primary Care Unavailable TEDDY COX Referring Unavailable Tunde Resendiz Referring Unavailable Tunde Resendiz Attending Unavailable Luis M Johnson Primary Care Unavailable Tunde Resendiz Attending Unavailable Luis M Johnson Referring Unavailable Luis M Johnson Primary Care Unavailable Tunde Resendiz Referring Unavailable Tunde Resendiz Attending Unavailable Luis M Johnson Primary Care Unavailable Luis M Johnson Primary Care Unavailable Tunde Resendiz Attending Unavailable Luis M Johnson Referring Unavailable Allergies Allergy Classification Reported Allergen(s) Allergy Type Date of Onset Reaction(s) Facility Aminoketones (1 source) buPROPion Drug Allergy 5 Intolerance [facility] Anti-Epileptic Agents (1 source) lamoTRIgine Drug Allergy 0 Mental Status Change [facility] Antihistamines (1 source) hydrOXYzine Drug Allergy 1 Mental Status Change [facility] Work Phone: famciclovir (1 source) famciclovir Drug Allergy 2 Rash [facility] Niacin (1 source) Niacin Drug Allergy 6 Other: See Comments [facility] Opioid Agonists (2 sources) fentaNYL Drug Allergy 4 Mental Status Change, Other: See Comments [facility] pregabalin (1 source) pregabalin Drug Allergy 5 Other: See Comments [facility] Proton Pump Inhibitors (1 source) lansoprazole Drug Allergy 5 Unknown [facility] (20 sources) buPROPion; Translations: [BUPROPION HCL] Drug Allergy 5 Intolerance [facility] Work Phone: (20 sources) famciclovir; Translations: [FAMCICLOVIR] Drug Allergy 2 Rash [facility] Work Phone: (20 sources) fentaNYL; Translations: [FENTANYL] Drug Allergy 4 Mental Status Change [facility] Work Phone: (20 sources) hydrOXYzine; Translations: [HYDROXYZINE] Drug Allergy 1 Mental Status Change [facility] Work Phone: (20 sources) lamoTRIgine; Translations: [LAMOTRIGINE] Drug Allergy 0 Mental Status Change [facility] Work Phone: (20 sources) lansoprazole; Translations: [LANSOPRAZOLE] Drug Allergy 5 Unknown [facility] Work Phone: Comment on above: confusion (20 sources) Niacin; Translations: [NIACIN] Drug Allergy 6 Other: See Comments [facility] Work Phone: (20 sources) oxyCODONE; Translations: [OXYCODONE HCL] Drug Allergy 5 Other: See Comments [facility] Work Phone: (20 sources) pregabalin; Translations: [PREGABALIN] Drug Allergy 5 Other: See Comments [facility] Work Phone: (7 sources) oxyCODONE Drug Allergy 1 Nausea/Vom/Diar calixto [facility] (1 source) fentaNYL Drug Allergy 5 [facility] (1 source) lamoTRIgine Drug Allergy 5 [facility] (1 source) lansoprazole Drug Allergy 5 [facility] (1 source) Niacin Drug Allergy 5 [facility] (1 source) oxyCODONE Drug Allergy 5 [facility] Medications Current Medications Medication Drug Class(es) Dates Sig (Normalized) Sig (Original) acetaminophen 300 mg / HYDROcodone bitartrate 5 mg oral tablet (20 sources) Opioid Agonist Start: 08-28-2015 Hydrocodone-Acetam inophen [...] 03, 2013 1:00am June 15, 2013 11:39am [id number] actuat albuterol 0.09 mg/actuat metered dose [...] (20 sources) Dihydropyridine Calcium Channel Cole Start: 3 End: 4 take 1 tablet by mouth once daily Amlodipine 10 mg tablet Active 10 mg PO daily November 19, 2024 12:00am Start: 10-04-2022 End: 03-29-2023 take 1 tablet [...] Platelet Aggregation Inhibitor, Nonsteroidal Anti-inflammatory Drug Start: 8 take 1 tablet by mouth once daily aspirin, enteric coated (ADULT ASPIRIN REGIMEN) 81 mg EC tablet Take 1 tablet by mouth once daily. 08/05/2017 Active Comment on above: Take 1 tablet by nu once daily. atorvastatin 40 mg oral tablet (20 sources) HMG-CoA Reductase Inhibitor Start: 2 End: 5 take 1 tablet by mouth once daily Atorvastatin 40 mg tablet Active 40 mg PO daily November 19, 2024 12:00am Start: 04-06-2021 take 1 tablet by nu once daily atorvastatin (LIPITOR) 40 mg tablet Take 1 tablet by mouth once daily. 90 tablet 1 04/06/2021 Active Comment on above: Take 1 tablet by nu once daily. busPIRone hydrochloride 15 mg oral tablet (20 sources) Start: 10-10-2021 End: 10-26-2024 take 1 tablet by mouth twice daily Buspirone 15 mg tablet Active 15 mg PO TWICE A DAY November 19, 2024 12:00am Start: 04-06-2021 take 1 tablet by nu twice daily busPIRone (BUSPAR) 15 mg tablet Indications: Generalized anxiety disorder Take 1 tablet by mouth twice daily. 180 tablet 1 04/06/2021 Active Comment on above: Take 1 tablet by nu twice daily. Take 1 tablet by nu two times a day. cholecalciferol 0.025 mg oral tablet (20 sources) Vitamin D Start: 08-13-19 20 take 1 tablet by mouth once daily, then take 4 tablets by mouth once daily cholecalciferol (VITAMIN D) 1,000 unit tab tablet Take 1 tablet by mouth once daily. Take 4 tablets daily 08/13/2019 Active Start: 06-03-2013 Cholecalcifero l (Vitamin D3) (D3-1999) 2,000 UNIT capsule Active 2000 U PO DAILY June 03, 2013 1:00am Comment on above: Take 1 tablet by nu once daily. Take 4 tablets daily chondroitin sulfates 400 mg / glucosamine hydrochloride 500 mg / methylsulfonylmethane 83 mg oral tablet (7 sources) Start: 2013 take 1 tablet by mouth once daily Glucosamine Opd-Xxc-Actbjkrpgw 1 EACH tablet Active 400 mg PO [...] tablet by mouth twice daily as needed cyclobenzaprine (FLEXERIL) 10 mg tablet Indications: Fibromyalgia Take 1 tablet by mouth two times a day as needed. 60 tablet 2 07/29/2024 Active Comment on above: Take 1 tablet [...] Active ferrous sulfate 325 mg oral tablet (7 sources) Start: 2013 take 1 tablet by [...] on above: Take 2 capsules by m out once daily. fluticasone propionate 0.05 mg/actuat metered [...] mg oral tablet (20 sources) Sulfonylurea Start: 10-11-19 End: 10-27-19 take 1 tablet by mouth twice daily Glimepiride 4 mg tablet Active 4 mg PO TWICE A DAY November 19, 2024 12:00am Start: 04-06-2021 take 1 tablet by nu th twice daily at mealtime glimepiride (AMARYL) 4 mg tablet Take 1 tablet by mouth twice daily with meals. 180 tablet 1 04/06/2021 Active Comment on above: Take 1 tablet by nu th twice daily with meals. Take 1 tablet by nu th two times a day with meals. lidocaine 0.05 mg/mg medicated patch (7 sources) Antiarrhythmic, Amide Local Anesthetic Start: 10-11-2013 Lidocaine 1 PATCH patch Active 1 NMA TOPICAL DAILY October 11, 2013 12:00am Start: 10-11-2013 apply 1 dose topically once da braydon Lidocaine Active 1 PATCH TOPICAL DAILY October 10, 2013 11:00pm lisinopril 30 mg oral tablet (20 sources) Angiotensin Converting Enzyme Inhibitor Start: 03-31-2023 End: 01-26-2024 take 1 tablet by mouth once daily Lisinopril 30 mg tablet Active 30 mg PO daily November 19, 2024 12:00am Start: 09-30-2022 End: 03-29-2023 take 1 tablet [...] mg oral tablet (20 sources) Antiemetic Start: 4 take 1 tablet by mouth every six hours as needed meclizine (ANTIVERT) 25 mg tab Take 1 tablet by mouth every 6 hours as needed (dizziness). 20 tablet 3 11/22/2019 Active Comment on above: Take 1 tablet by nu th every 6 hours as needed (dizziness). meloxicam 15 mg oral tablet (20 sources) Nonsteroidal Anti-inflammatory Drug Start: 3 End: 4 take 1 tablet by mouth once daily Meloxicam 15 mg tablet Active 15 mg PO daily November 19, 2024 12:00am Start: 09-30-2022 End: 03-29-2023 take 1 tablet [...] Take 1 tablet by nu once daily. With food. 24 hr metFORMIN hydrochloride 500 mg extended release oral tablet (20 sources) Biguanide Start: 10-10-2021 End: 10-26-2024 Metformin 500 mg tablet extended release 24 hr Active 1000 mg PO TWICE A DAY November 19, 2024 12:00am Start: 04-06-2021 [facility] metFORMIN ER (GLUCOPHAGE XR) 500 mg 24 hr tablet Indications: Type 2 diabetes mellitus without complication, without long-term current use of insulin (HCC) Take 2 tablets by mouth twice daily. 360 tablet 1 04/06/2021 Active Comment on above: Take 2 tablets by mo ut twice daily. Take 2 tablets by mo uth two times a day. Multivitamin capsule (20 sources) take 1 capsule by mouth once daily Multivitamin capsule Take 1 capsule by mouth once daily. Active take 1 capsule by mouth once chilo ly Multivitamin capsule Take 1 capsule by mouth once daily. 0 Active Comment on above: Take 1 capsule [facility] daily. pantoprazole 20 mg delayed release oral tablet (20 sources) Proton Pump Inhibitor Start: 06-03-19 14 End: 10-20-[address] (PROTONIX) 20 mg tablet take 1 tablet daily 1/2 hour before breakfast on an empty stomach 90 tablet 1 10/19/2024 Active Comment on above: take 1 tablet daily [...] Start: 04-06-2021 take 1 tablet by nu once daily pioglitazone (ACTOS) 45 mg tablet Take 1 tablet by mouth once daily. 90 tablet 1 04/06/2021 Active Comment on above: Take 1 tablet by nu once daily. simvastatin 40 mg oral tablet (7 sources) HMG-CoA Reductase Inhibitor Start: 4 take 1 tablet by mouth at bedtime Simvastatin 40 MG tablet Active 40 mg PO AT BEDTIME June 03, 2013 1:00am SITagliptin 100 mg oral tablet (20 sources) Dipeptidyl Peptidase 4 Inhibitor Start: 4 End: 5 take 1 tablet by mouth once daily Sitagliptin Phosphate (Januvia) 100 mg tablet Active 100 mg PO daily November 19, 2024 12:00am vitamin b12 0.5 mg oral tablet (3 sources) Vitamin B12 Start: 5 take 1 tablet by mouth [...] Patient) Start: 06-03-2013 take 1 tablet by nu th twice daily at mealtime Ascorbic Acid (Vitamin C) (Vitamin C) 500 MG tablet Active 500 mg PO TWICE DAILY WITH MEALS June 03, 2013 1:00am Comment on above: Take 1 tablet by nu th once daily. bifidobacterium bifidum [id number] unt / bifidobacterium longum [id number] unt oral capsule (20 sources) Start: 019 End: take 1 capsule by mouth once daily bifidobacteri bifid.and longum (FLORAJEN BIFIDOBLEND) 460 mg (9-1 bill.cell) cap Indications: Acute otitis media, left Take 1 capsule by mouth once daily. 30 capsule 1 04/12/2019 10/17/2023 Discontinued (Discontinued by Patient) Comment on above: Take 1 capsule by mo uth once daily. 24 hr nicotine 0.583 mg/hr transdermal system (7 sources) Cholinergic Nicotinic Agonist Start: 014 End: apply 14 mg transdermal route at bedtime Nicotine 14 MG patch Discontinued 14 mg TRANSDERM. AT BEDTIME June 03, 2013 1:00am June 15, 2013 11:38am omega-3 fatty acids 1,000 mg cap (20 sources) Start: 017 End: take 2 capsules by mouth once daily [...] hydrochloride 20 mg extended release oral tablet (7 sources) Opioid Agonist Start: 4 End: 4 take 1 tablet by mouth every twelve hours Oxycodone (Oxycontin) 20 MG tablet Discontinued 20 mg PO Q12H June 03, 2013 1:00am June 15, 2013 11:37am Problems Active Problems Problem Classification Problem Date Documented Date Episodic/Chronic Adjustment disorders (20 sources) Adjustment disorder; Translations: [Adjustment disorder, unspecified] Onset: 10-29-2011 10-02-2016 Chronic Alcohol-related disorders (20 sources) Alcohol dependence; Translations: [...] 10-19-2024 Episodic Joint disorders and dislocations; trauma-related (7 sources) Closed traumatic dislocation of hip; Translations: [Unspecified dislocation of left hip, initial encounter] 04-14-2021 Episodic Miscellaneous mental health disorders (1 source) Psychogenic overeating; 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 Mood disorders (20 sources) Recurrent major depression in partial remission; Translations: [Major depressive disorder, recurrent, in partial remission] Onset: 05-30-2005 10-02-2016 Chronic Neoplasms of unspecified nature or uncertain behavior (16 sources) Neoplasm of uncertain behavior of skin [...] 45.0 to 49.9 in adult ([facility])] Onset: 04-03-2021 Chronic Other nutritional; endocrine; and metabolic disorders (1 source) Body mass index (BMI) 45.0-49.9, adult; Translations: [Morbid obesity with body mass index (BMI) of 45.0 to 49.9 in adult ([facility])] Onset: 04-03-2021 Chronic Other nutritional; endocrine; and metabolic disorders (1 source) Body mass index (BMI) 40.0-44.9, adult; Translations: [Class 3 severe obesity with body mass index (BMI) of 40.0 to 44.9 in adult, unspecified obesity type, unspecified whether serious comorbidity present ([facility])] Onset: 04-19-2024 Chronic Other skin disorders (1 source) Disorder of the skin and subcutaneous tissue, unspecified; Translations: [Disorder of the skin and subcutaneous tissue, unspecified] Onset: 12-08-2024 Episodic Other upper respiratory infections (1 source) Chronic [...] Unclassified (1 source) APPOINTMENT CANCELLED 11-27-2022 Unclassified (4 sources) Neoplasm Unclassified (8 sources) D49.9 - Neoplasm of unspecified behavior of unspecified site Unclassified (1 source) Acute cough; Translations: [Acute [...] whether serious comorbidity present (HCC)] Onset: 04-19-2024 Past or Other Problems Problem Classification Problem Date Documented Da te Episodic/Chronic Administrative/social admission (20 sources) Advance directive discussed with patient; Translations: [Other specified counseling] Onset: 10-10-2021 10-10-2021 Episodic Conditions associated with dizziness or vertigo (20 sources) Benign paroxysmal positional vertigo; Translations: [Benign paroxysmal vertigo, unspecified ear] Onset: 11-22-2019 11-22-2019 Episodic Genitourinary symptoms and ill-defined conditions (1 source) Proteinuria, unspecified; Translations: [Type 2 diabetes mellitus with diabetic microalbuminuria, unspecified whether fci insulin use (HCC)] Onset: 04-06-2021 Episodic Nutritional deficiencies (20 sources) Serum vitamin B12 low; Translations: [Deficiency of other specified B group vitamins] Onset: 10-10-2021 10-10-2021 Episodic Other aftercare (20 sources) Patient encounter status; Translations: [Other traffic investigator (current) drug therapy] Onset: 08-05-2017 06-02-2018 Episodic Other aftercare (1 source) Other fci (current) drug therapy; Translations: [Medication management] Onset: [...] Test Name Value Interpretation Reference Range Facility [facility] BEVERLY GIVENS ([id number]) 1950 F NFR Date Time Provider Department 12/15/24 LUIS M JOHNSON INTGurdeepWS During your visit today, we recorded the following information about you: Ana Heck LPN 12/15/2024 2:47 PM Signed Covermyselma YOU rec'd for cyclobenzaprine. This was completed electronically and approved. Pharmacy notified. Prior authorization approved Payer: Rahat Note from payer: KENYATTA Case: [id number], Status: Approved, Coverage Starts on: 09/15/2024 12:00:00 AM, Coverage Ends on: 12/15/2025 12:00:00 AM. Approval Details Authorization number: [id number] Authorized from September 15, 2024 to December 15, 2025 Electronic appeal: Not supported View History Notes Time User Attachment Attachment received from payer. 12/15/2024 2:41 PM ShailasAlban Priorauth In Document Medication Being Authorized cyclobenzaprine (FLEXERIL) 10 mg tablet Take 1 tablet by mouth two times a day as needed. Dispense: 60 tablet Refills: 2 Start: 07/29/2024 Class: Normal Diagnoses: Fibromyalgia This order has been released to its destination. To be filled at: [facility] [id number] [place] [address] - [address] - [phone] Allergies As of Date: 12/15/2024 Noted Allergy Reaction FAMCICLOVIR 11/25/2011 2 - [...] (LANSOPRAZOLE) 02/21/2005 16 - Unknown Date Reviewed: 10/20/2024 Reviewed by: Luis M Johnson MD - Fully Assessed Reason for Visit: Insurance Authorization [[id number]] Prescriptions as of 12/15/2024 - metFORMIN ER (GLUCOPHAGE XR) 500 mg [...] E11.29 Insulin: No A1c 7.5% 09/05/2021 - cyanocobalamin (B-12 DOTS) 500 mcg tablet Take 1 tablet by mouth once daily. - albuterol HFA (PROVENTIL HFA, VENTOLIN HFA) 90 mcg/actuation inhaler Inhale 2 puffs as instructed every 4 hours as needed. - pantoprazole DR (PROTONIX) 20 mg tablet take 1 tablet daily 1/2 hour before breakfast on an empty stomach - SITagliptin phosphate (JANUVIA) 100 mg tablet Take 1 tablet by mouth once daily. - cyclobenzaprine (FLEXERIL) 10 mg tablet Take 1 tablet by mouth two times a day as needed. - amLODIPine (NORVASC) 10 mg tablet Take 1 tablet by mouth once daily. - meloxicam (MOBIC) 15 mg tablet Take 1 tablet by mouth once daily. With food. - lisinopril (ZESTRIL) 30 mg tablet Take 1 tablet by mouth once daily. - pioglitazone (ACTOS) [...] leg edema Problem List As Of Date 12/15/2024 Noted Resolved Mixed hyperlipidemia [E78.2] 02/12/2005 Recurrent [...] [M51.36*07/26/2014 Diabetes mellitus type 2 with ketoacidosis, [facility]*03/01/2015 05/28/2015 Lumbago [M54.50] 05/19/2015 Type 2 diabete (more content not included)... Normal [facility] 12-14-2024 [facility] Telephone (INTMWS) BEVERLY GIVENS ([id number]) 1950 F NFR Date Time Provider Department 12/14/24 LUIS M JOHNSON INTMWS During your visit today, we recorded the following information about you: Allergies As of Date: 12/14/2024 Noted Allergy Reaction FAMCICLOVIR 11/25/2011 2 - [...] (LANSOPRAZOLE) 02/21/2005 16 - Unknown Date Reviewed: 10/20/2024 Reviewed by: Luis M Johnson MD - Fully Assessed Prescriptions as of 12/15/2024 - metFORMIN ER (GLUCOPHAGE XR) 500 mg [...] E11.29 Insulin: No A1c 7.5% 09/05/2021 - cyanocobalamin (B-12 DOTS) 500 mcg tablet Take 1 tablet by mouth once daily. - albuterol HFA (PROVENTIL HFA, VENTOLIN HFA) 90 mcg/actuation inhaler Inhale 2 puffs as instructed every 4 hours as needed. - pantoprazole DR (PROTONIX) 20 mg tablet take 1 tablet daily 1/2 hour before breakfast on an empty stomach - SITagliptin phosphate (JANUVIA) 100 mg tablet Take 1 tablet by mouth once daily. - cyclobenzaprine (FLEXERIL) 10 mg tablet Take 1 tablet by mouth two times a day as needed. - amLODIPine (NORVASC) 10 mg tablet Take 1 tablet by mouth once daily. - meloxicam (MOBIC) 15 mg tablet Take 1 tablet by mouth once daily. With food. - lisinopril (ZESTRIL) 30 mg tablet Take 1 tablet by mouth once daily. - pioglitazone (ACTOS) [...] leg edema Problem List As Of Date 12/14/2024 Noted Resolved Mixed hyperlipidemia [E78.2] 02/12/2005 Recurrent [...] [Z79.899] 06/02/2018 Hx of colonic polyp [Z86.0100] 08/19/2018 Glaucoma [H40.9] Ex-smoker [Z87.891] 03/17/2019 BPV (benign positional vertigo), unspecified la*11/22/2019 Foot callus [L84] 11/29/2020 Advance directive discussed with patient [Z71.8*10/10/2021 Low serum vitamin B12 [E53.8] 10/10/2021 Chronic pain of both shoulders [M25.511, G89.29*10/10/2021 Hypertensio (more content not included)... Normal [facility] Plastic Surgery Visit Report on 12-09-2024 Plastic Surgery Visit Report [facility] Surgery [address] [place] [address] OFFICE VISIT Date of Service: 12/09/24 MR#: [id number] Acct: [id number] Name: BEVERLY GIVENS Rep #: [id number] : 1950 Provider: Dr. Tunde Resendiz MD Age/Sex: 74/F [place] [facility] Status: Signed Intake Vital Signs 11/24/24 11:32 07/31/25 14:47 Height 56 ft 5 ft 6 in Weight: 248 lb BMI 40.0 BP 115/60 Blood Pressure Location Rt brachial Position Sitting Respiration 18 Pulse 100 Temp 98.4 F Temp Source Temporal Pulse Oximetry (%) 95 Oxygen Delivery Method room air Intake Visit Reasons: post op in office procedure Chief Complaint: post op Is patient in pain?: No Allergies lansoprazole (From Prevacid) Allergy (Mild, Verified 12/09/24 14:49) Other lamotrigine (From Lamictal) Adverse Reaction (Mild, Verified 12/09/24 14:49) confusion niacin Adverse Reaction (Mild, Verified 12/09/24 14:49) jittery fentanyl Adverse Reaction (Verified 12/09/24 14:49) Other oxycodone (From OxyContin) Adverse Reaction (Verified 12/09/24 14:49) Nausea/Vom/Diarrhea Medications ???Medication ???Instructions ???Recorded ???Confirmed ???Type ascorbic acid (vitamin C) 500 mg 500 mg PO BIDCM 06/03/13 12/09/24 History tablet (Vitamin C) cholecalciferol (vitamin D3) 50 2,000 unit PO DAILY 06/03/1312/09 History mcg (2,000 unit) capsule (D3-2000) cyclobenzaprine 10 mg tablet 10 mg PO BID PRN PRN FIBROMYALGIA 06/03/13 12/09/24 History ferrous sulfate 325 mg (65 mg 325 mg PO BIDCM 06/03/13 12/09/24 History iron) tablet fluoxetine 20 mg capsule 40 mg PO DAILY 06/03/13 12/09/24 H istory glucosamine HCl 500 mg-msm 83 400 mg PO DAILY 06/03/13 12/09/24 History mg-chondroitin 400 mg tablet meclizine 25 mg tablet (Antivert) 25 mg PO Q6H PRN PRN DIZZINESS 12/09/24 History pantoprazole 20 mg tablet,delayed 20 mg PO DAILY 06/03/13 12/09/24 History release simvastatin 40 mg tablet 40 mg PO QHS 06/03/13 12/09/24 His tory lidocaine 5 % topical patch 1 patch topical DAILY 10/11/13 History hydrocodone 5 mg-acetaminophen 300 1 tab PO BID PRN PRN Pain 04/18/ 16 07/31/25 History mg tablet (Vicodin) albuterol sulfate 90 mcg/actuation 2 puff inhalation Q4 PRN 5 12/09/24 History aerosol inhaler amlodipine 10 mg tablet 10 mg PO QDAY 11/19/24 12/09/24 Hi story atorvastatin 40 mg tablet 40 mg PO QDAY 11/19/24 12/09/24 Hi story buspirone 15 mg tablet 15 mg PO BID 11/19/24 12/09/24 His tory glimepiride 4 mg tablet 4 mg PO BID 11/19/24 12/09/24 Hist ory lisinopril 30 mg tablet 30 mg PO QDAY 11/19/24 12/09/24 Hi story meloxicam 15 mg tablet 15 mg PO QDAY 11/19/24 12/09/24 Hi story metformin 500 mg tablet,extended 1,000 mg PO BID 11/19/24 12/09/24 History release 24 hr sitagliptin phosphate 100 mg 100 mg PO QDAY 11/19/24 12/09/24 H istory tablet (Januvia) Have you fallen in the past year?: No Nurse's Note: pt here for post op in office procedure Subjective Details: Patient doing well 1 week postop Sutures removed without issue We reviewed the pathology which demonstrated benign findings as noted below MICROSCOPIC DIAGNOSIS A. Forearm, left, lesion, excision: - Solar lentigo. B. Cheek, right, lesion, excision: - Seborrheic keratosis. C. [place], right, upper, lesion, excision: - Seborrheic keratosis. D. Cheek, left, lesion, excision: - Actinically damaged skin with seborrheic keratosis and focal basilar pigmentation consistent with solar lentigo. - Negative for malignancy ??? see note. Note: The block has been stepped through Objective Details: Cheek and scalp lesions healing well, sutures removed. No signs of infection Left forearm healing well without much drainage. Granulating from the base. 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 [facility] 12-02-2024 [facility] Telephone (FAMPWS) BEVERLY GIVENS ([id number]) 1950 F NFR Date Time Provider Department 12/02/24 LUIS M JOHNSON [facility] During your visit today, we recorded the following information about you: Alicia Diaz 12/02/2024 11:35 AM Signed Beverly is calling Luis M Johnson MD today with concern regarding letter for post office. Patient is asking for a letter to be sent to her post office so her mail can be dropped off at her house. Patient has a hard time getting to the mailbox. Please send letter to: [address] [address] Patient has been identified by name and birthdate. Duration of symptoms: N/A Person calling: self Call patient at: on cell [phone] (home) [phone] (cell) Was an appointment scheduled: No Closing statement: Results or non-symptom based questions: Thank you for calling [facility], your call will be returned within the next business day. Sandy Fisher LPN 12/02/2024 1:22 PM Signed Please see request below. RENEE Ibarra Jeffrey A, MD 12/06/2024 7:19 AM Signed Let patient know letter is ready for her to vegetable picker and mail to the Field Trainer. Gisselle Zhu MA 12/06/2024 3:19 PM Signed Called and left message on patients voicemail to return call to the office and ask to speak with a FM triage nurse. When pt returns call, please ask if she want to vegetable picker or have mailed to her? In PCP's office, top tray on desk. BRANDIN Branch Krista, LPN 12/06/2024 3:17 PM Signed Spoke to pt. Pt would like the following: Letter mailed to Post Master as below. A copy of letter mailed to pt. RENEE Self Rilee, MA 12/06/2024 4:39 PM Signed Waiting for new letter from PCP, will then send out to Field Trainer. Okay per PCP. BRANDIN Branch Jeffrey A, MD 12/06/2024 5:57 PM Signed New letter printed with corrected error. Ready to be sent. Gisselle Zhu MA 12/07/2024 11:10 AM Signed Letter has been mailed to Field Trainer at address below given by patient. Copy made of letter and mailed to pt's address on file. Note in letter that this has been completed as requested. Gisselle Zhu MA Allergies As of Date: 12/02/2024 Noted Allergy Reaction FAMCICLOVIR 11/25/2011 2 - [...] (LANSOPRAZOLE) 02/21/2005 16 - Unknown Date Reviewed: 10/20/2024 Reviewed by: Luis M Johnson MD - Fully Assessed Reason for Visit: letter for post office [Other] Prescriptions as of 12/15/2024 - metFORMIN ER (GLUCOPHAGE XR) 500 mg [...] E11.29 Insulin: No A1c 7.5% 09/05/2021 - cyanocobalamin (B-12 DOTS) 500 mcg tablet Take 1 tablet by mouth once daily. - albuterol HFA (PROVENTIL HFA, VENTOLIN HFA) 90 mcg/actuation inhaler Inhale 2 puffs as instructed every 4 hours as needed. - pantoprazole DR (PROTONIX) 20 mg tablet take 1 tablet daily 1/2 hour before breakfast on an empty stomach - SITagliptin phosphate (JANUVIA) 100 mg tablet Take 1 tablet by mouth once daily. - cyclobenzaprine (FLEXERIL) 10 mg tablet Take 1 tablet by mouth two times a day as needed. - amLODIPine (NORVASC) 10 mg tablet Take 1 tablet by mouth once daily. - meloxicam (MOBIC) 15 mg tablet Take 1 tablet by mouth once daily. With food. - lisinopril (ZESTRIL) 30 mg tablet Take 1 tablet by mouth once daily. - pioglitazone (ACTOS) [...] 1,000 unit tab tablet Take 1 tablet b (more content not included)... Normal [facility] Plastic Surgery Visit Report on 12-02-2024 Plastic Surgery Visit Report [facility] Plastic Reconstructive Surgery [address], [address] [place] [address] OFFICE VISIT Date of Service: 12/02/24 MR#: [id number] Acct: [id number] Name: BEVERLY GIVENS Rep #: [id number] : 1950 Provider: Dr. Tunde Resendiz MD Age/Sex: 74/F [place] [facility] Status: Signed Intake Vital Signs 3 11/19/24 13:25 11/24/24 11:32 12/02/24 13:13 Height 56 ft 56 ft Weight: 282 lb BMI 0.4 BP 113/68 115/71 Blood Pressure Location Lt brachial Position Sitting Sitting Respiration 18 18 Pulse 118 H 119 H Pulse Source Monitor Temp 97.8 F Temp Source Oral Pulse Oximetry (%) 97 96 Oxygen Delivery Method room air room air Intake Visit Reasons: in office procedure Chief Complaint: neoplasm right congregational, right cheek, and left cheek area Is patient in pain?: No Allergies lansoprazole (From Prevacid) Allergy (Mild, Verified 12/02/24 13:12) Other lamotrigine (From Lamictal) Adverse Reaction (Mild, Verified 12/02/24 13:12) confusion niacin Adverse Reaction (Mild, Verified 12/02/24 13:12) jittery fentanyl Adverse Reaction (Verified 12/02/24 13:12) Other oxycodone (From OxyContin) Adverse Reaction (Verified 12/02/24 13:12) Nausea/Vom/Diarrhea Medications 3 ???Medication ???Instructions ???Recorded ???Confirmed ???Type ascorbic acid (vitamin C) 500 mg 500 mg PO BIDCM 06/03/13 12/02/24 History tablet (Vitamin C) cholecalciferol (vitamin D3) 50 2,000 unit PO DAILY 06/03/1312/02 History mcg (2,000 unit) capsule (D3-1999) cyclobenzaprine 10 mg tablet 10 mg PO BID PRN PRN FIBROMYALGIA 06/03/13 12/02/24 History ferrous sulfate 325 mg (65 mg 325 mg PO BIDCM 06/03/13 12/02/24 History iron) tablet fluoxetine 20 mg capsule 40 mg PO DAILY 06/03/13 12/02/24 H istory glucosamine HCl 500 mg-msm 83 400 mg PO DAILY 06/03/13 12/02/24 History mg-chondroitin 400 mg tablet meclizine 25 mg tablet (Antivert) 25 mg PO Q6H PRN PRN DIZZINESS 12/02/24 History pantoprazole 20 mg tablet,delayed 20 mg PO DAILY 06/03/13 12/02/24 History release simvastatin 40 mg tablet 40 mg PO QHS 06/03/13 12/02/24 His tory lidocaine 5 % topical patch 1 patch topical DAILY 10/11/13 History hydrocodone 5 mg-acetaminophen 300 1 tab PO BID PRN PRN Pain 12/02/24 History mg tablet (Vicodin) albuterol sulfate 90 mcg/actuation 2 puff inhalation Q4 PRN 5 12/02/24 History aerosol inhaler amlodipine 10 mg tablet 10 mg PO QDAY 11/19/24 12/02/24 Hi story atorvastatin 40 mg tablet 40 mg PO QDAY 11/19/24 12/02/24 Hi story buspirone 15 mg tablet 15 mg PO BID 11/19/24 12/02/24 His tory glimepiride 4 mg tablet 4 mg PO BID 11/19/24 12/02/24 Hist ory lisinopril 30 mg tablet 30 mg PO QDAY 11/19/24 12/02/24 Hi story meloxicam 15 mg tablet 15 mg PO QDAY 11/19/24 12/02/24 Hi story metformin 500 mg tablet,extended 1,000 mg PO BID 11/19/24 12/02/24 History release 24 hr sitagliptin phosphate 100 mg 100 mg PO QDAY 11/19/24 12/02/24 H istory tablet (Januvia) Have you fallen in the past year?: No [facility] Medical History Ankle fracture GERD (gastroesophageal reflux [...] Does use edibles, denies blood clots/disorder HPI in office procedure Details: 1%lidocaine w/epi [id number] lot [id number] exp The patient is a 74-year-old female presenting with skin lesions for evaluation. She reports a longstanding pigmented lesion on her left cheek, believed to be an age spot, and a changing pigmented lesion on the right preauricular cheek, which has darkened over six months. Additionally, there is a lesion on the right upper congregational, described as pearly, indurated, and red, measuring 0.5 x 0.5 cm. The patient initially attributed these lesions to the use of her CPAP machine. The patient has Type 2 Diabetes Mellitus with an A1c of 7, aiming for 6.8 by April. She denies bleeding or clotting dis (more content not included)... Normal [facility] Surgery Specimen Level Sangeetha 12-02-2024 Surgery Specimen Level IV ---- Patient Age/Sex Location Account Attending Physician ---- [facility]IVENS 74[id number]. Tunde Resendiz MD ---- Specimen: [id number] Received: 12/03/24 Status: ALIX Alberts Num: [id number] Spec Type: Lesion Subm Dr: Dr. Tunde Resendiz MD HEADER OPERATION: Excision of left cheek, right upper congregational, right preauricular cheek, left forearm lesion PRE-OP DIAGNOSIS: Lesions of left cheek, right upper congregational, right preauricular cheek, left forearm TISSUE SUBMITTED: A- Left forearm lesion, B- Right cheek lesion, C- Right upper congregational lesion, D- Left cheek shave lesion ---- MICROSCOPIC DIAGNOSIS A. Forearm, left, lesion, excision: - Solar lentigo. B. Cheek, right, lesion, excision: - Seborrheic keratosis. C. [place], right, upper, lesion, excision: - Seborrheic keratosis. D. Cheek, left, lesion, excision: - Actinically damaged skin with seborrheic keratosis and focal basilar pigmentation consistent with solar lentigo. - Negative for malignancy - see note. Note: The block has been stepped through. MICROSCOPIC DESCRIPTION Slides are reviewed. GROSS DESCRIPTION Received in 4 formalin containers labeled with the patient's name and date of . Designated as: A. Left forearm lesion is a 0.7 x 0.7 x <0.1 cm ovoid skin shave devoid of orientation. The resection margin is inked black. There is a possible 0.4 x 0.3 cm light brown lesion abutting the peripheral edge. The specimen is trisected and entirely submitted in 1 cassette. B. Right cheek lesion is a 1.4 x 0.7 cm alvarez skin ellipse devoid of orientation, excised to a depth of 0.3 cm. The resection margin is inked blue. There is a 0.7 x 0.6 cm alvarez slightly raised alvarez lesion with central, brown discoloration located 0.1 cm from the peripheral edge. The specimen is serially sectioned and entirely submitted in 1 cassette. C. Right upper congregational lesion is a 0.4 x 0.3 x 0.2 cm alvarez and somewhat bosselated skin shave devoid of orientation. The resection margin is inked green. The specimen is bisected and entirely submitted in 1 cassette. D. Left cheek shave lesion is a 0.6 x 0.3 x 0.2 cm alvarez to light brown skin shave devoid of orientation. The resection margin is inked orange. The specimen is bisected and entirely submitted in 1 cassette. ---- Patient Age/Sex Location Account Attending Physician ---- BEVERLY GIVENS 74/F [facility] [id number] Dr. Tunde Resendiz MD ---- [place] 12/03/2024 CPT:55316d1 ---- Patient Age/Sex Location Account Attending Physician ---- BEVERLY GIVENS 74/F [facility] [id number] Dr. Tunde Resendiz MD ---- Signed (signature on file) Dr. Rina Puga MD 12/09/24 1454 ---- Normal [facility] Comment on above: Performed By: #### P SUIV #### [facility] [address] [place], [place], [address] Plastic Surgery Visit Report on 11-19-2024 Plastic Surgery Visit Report [facility] Plastic Reconstructive Surgery [address], [address] [place] [address] OFFICE VISIT Date of Service: 11/19/24 MR#: [id number] Acct: [id number] Name: BEVERLY GIVENS Rep #: [id number] : 1950 Provider: Dr. Tunde Resendiz MD Age/Sex: 74/F Location: [facility] Status: Signed Intake Vital Signs 3 04/10/22 16:26 11/19/24 13:25 Height 5 ft 6 in 56 ft Weight: 282 lb BMI 0.4 BP 113/68 Position Sitting Respiration 18 Pulse 118 H Temp 97.8 F Temp Source Oral Pulse Oximetry (%) 97 Oxygen Delivery Method room air Intake Visit Reasons: NEOPLASM R EAR Chief Complaint: neoplasm right congregational, right cheek, and left cheek area Is patient in pain?: Yes (09/18) Allergies lansoprazole (From Prevacid) Allergy (Mild, Verified [...] of susupicious lesion on right cheek, right congregational and left cheek [facility] Medical History Ankle fracture GERD (gastroesophageal reflux [...] is a lesion on the right upper congregational, described as pearly, indurated, and red, measuring 0.5 x 0.5 cm. The patient initially attributed these lesions to the use of her CPAP machine. The patient has Type 2 Diabetes Mellitus with an A1c of 7, aiming for 6.8 by April. She denies bleeding or clotting disorders and has no cervical lymphadenopathy. She quit smoking seven to eight (more content not included)... Normal [facility] ALBUMIN/CREATININE RATIO, UR INEon 10-22-2024 Albumin DL <= 20 mg/L (U) [Mass/Vol] 19.8 mg/L Normal [facility] Comment on above: Order Comment: Speci men Type: URINE SPECIMENOrdering Facility: [facility] Address: [address] [place] [address] Performed By: #### U ACR ####[facility] [id number] [place] [address] [place] Albumin/Creatinine (U) [Mass ratio] 21 mg/g Normal <30 [facility] Comment on above: Order Comment: Speci men Type: URINE SPECIMENOrdering Facility: [facility] Address: [address] [place] [address] Result Comment: Adul t Male and Female Nephrotic Criteria: <30 mg/g is considered normal to mildly increased 30-300 mg/g is considered moderately increased >300 mg/g is considered severely increased KDIGO. (2013). KDIGO 2012 Clinical Practice Guideline for the Evaluation and Management of Chronic Kidney Disease. Official Journal of the International Society of Nephrology, 3(1), 1-150. Performed By: #### U ACR ####[facility] [id number] [place] [address] [place] Creatinine (U) [Mass/Vol] 94.6 mg/dL Normal 20.0-300.0 [facility] Comment on above: Order Comment: Speci men Type: URINE SPECIMENOrdering Facility: [facility] Address: [address] [place] [address] Performed By: #### U ACR ####[facility] [id number] [address] [address] [place] Hemoccult Stl Ql IAon 2024 Lower GI hemoglobin IA Ql (Stl) Negative Normal Negative [facility] Comment on above: Order Comment: Speci men Type: STOOL SPECIMENOrdering Facility: [facility] Address: [address] [place] [address] Performed By: #### 2 9771-3 ####[facility] [id number] [place] [id number] [place] Urinalysis complete panel (U )on 10-22-2024 Bacteria LM.HPF (Urine sed) [#/Area] Negative Normal Negative [facility] Comment on above: Order Comment: Speci men Type: URINE SPECIMENOrdering Facility: [facility] Address: [address] [place] [address] Performed By: #### 2 4356-8 ####[facility] [id number] [address] [place] [address] [place] Bilirubin Ql (U) Negative Normal Negative [facility] Comment on above: Order Comment: Speci men Type: URINE SPECIMENOrdering Facility: [facility] Address: [address] [place] [address] Performed By: #### 2 4356-8 ####[facility] [id number] [address] [place] [address] [place] Clarity (Unsp spec) Clear Normal Clear [facility] Comment on above: Order Comment: Speci men Type: URINE SPECIMENOrdering Facility: [facility] Address: [address] [place] [address] Performed By: #### 2 4356-8 ####[facility] [id number] [place] [address] [place] [facility] Color (U) Yellow Normal Yellow [facility] Comment on above: Order Comment: Speci men Type: URINE SPECIMENOrdering Facility: [facility] Address: [address] [place] [address] Performed By: #### 2 4356-8 ####[facility] [id number] [address] [place] [address] [place] Epithelial cells LM.HPF (Urine sed) [#/Area] None Seen Normal [facility] Comment on above: Order Comment: Speci men Type: URINE SPECIMENOrdering Facility: [facility] Address: [address] [place] [address] Performed By: #### 2 4356-8 ####[facility] [id number] [place] [address] [place] Glucose Test strip (U) [Mass/Vol] Negative Normal Negative [facility] Comment on above: Order Comment: Speci men Type: URINE SPECIMENOrdering Facility: [facility] Address: [address] [place] [address] Performed By: #### 2 4356-8 ####[facility] [id number] [address] [place] [address] [place] Hemoglobin Ql (U) Negative Normal Negative [facility] Comment on above: Order Comment: Speci men Type: URINE SPECIMENOrdering Facility: [facility] Address: [address] [place] [address] Performed By: #### 2 4356-8 ####[facility] [id number] [address], [place] [address] [place] Hyaline casts (Urine sed) [#/Area] 0 /[LPF] Normal 0 /LPF [facility] Comment on above: Order Comment: Speci men Type: URINE SPECIMENOrdering Facility: [facility] Address: [address] [place] [address] Performed By: #### 2 4356-8 ####[facility] [id number] [address], [place] [address] [place] Ketones Ql (U) Negative Normal Negative [facility] Comment on above: Order Comment: Speci men Type: URINE SPECIMENOrdering Facility: [facility] Address: [address] [place] [address] Performed By: #### 2 4356-8 ####[facility] [id number] [address], [place] [address] [place] Leukocyte esterase Test strip Ql (U) Negative Normal Negative [facility] Comment on above: Order Comment: Speci men Type: URINE SPECIMENOrdering Facility: [facility] Address: [address] [place] [address] Performed By: #### 2 4356-8 ####[facility] [id number] [address], [facility] [place] Nitrite Ql (U) Negative Normal Negative [facility] Comment on above: Order Comment: Speci men Type: URINE SPECIMENOrdering Facility: [facility] Address: [address] [place] [address] Performed By: #### 2 4356-8 ####[facility] [id number] [place] [address] [place] pH (U) 7.0 [pH] Normal <8.5 [facility] Comment on above: Order Comment: Speci men Type: URINE SPECIMENOrdering Facility: [facility] Address: [address] [place] [address] Performed By: #### 2 4356-8 ####[facility]IA [id number] [place] [address] [place] Protein (U) [Mass/Vol] Trace Abnormal Negative [facility] Comment on above: Order Comment: Speci men Type: URINE SPECIMENOrdering Facility: [facility] Address: [address] [place] [address] Performed By: #### 2 4356-8 ####[facility]IA [id number] [place] [address] [place] RBC LM.HPF (Urine sed) [#/Area] 0-2 /HPF Normal 0-2 /HPF [facility] Comment on above: Order Comment: Speci men Type: URINE SPECIMENOrdering Facility: [facility] Address: [address] [place] [address] Performed By: #### 2 4356-8 ####[facility] [id number] [place] [address] [place] Specific gravity (U) [Rel density] 1.020 Normal 1.005-1.030 [facility] Comment on above: Order Comment: Speci men Type: URINE SPECIMENOrdering Facility: [facility] Address: [address] [place] [address] Performed By: #### 2 4356-8 ####[facility] [id number] [place] [id number] [place] Urobilinogen Ql (U) 0.2 EU/dL Normal 0.2-1.0 EU/dL Cl [facility] Comment on above: Order Comment: Speci men Type: URINE SPECIMENOrdering Facility: [facility] Address: [address] [place] [address] Performed By: #### 2 4356-8 ####[facility] [id number] [place] [address] [place] WBC LM.HPF (Urine sed) [#/Area] 0-5 /HPF Normal 0-5 /HPF [facility] Comment on above: Order Comment: Speci men Type: URINE SPECIMENOrdering Facility: [facility] Address: [address] [place] [address] Performed By: #### 2 4356-8 ####[facility]IA [id number] [place] [address] [place] HbA1c (Bld)on 10-20-2024 Average glucose Estimated from glycated hemoglobin (Bld) [Mass/Vol] 154 mg/dL [facility] Comment on above: eAG: (Estimated aver age glucose) is a calculated value from HgbA1c and is automobile rental representative of the average blood glucose level in the last 2-3 month period. HbA1c (Bld) [Mass fraction] 7 % High 4.3 - 5.6 % [facility] Comment on above: [place] Diabetes As sociation guidelines indicate that patients with HgbA1c in the range 5.7-6.4% are at increased risk for development of diabetes, and intervention by lifestyle modification may be beneficial. HgbA1c greater or equal to 6.5% is considered diagnostic of diabetes. Interpretation and review of laboratory results Abnormal [facility] CBC W Auto Differential pane l (Bld)on 10-19-2024 Basophils (Bld) [#/Vol] 0.04 10*3/uL [facility] Basophils/100 WBC (Bld) 0.4 % [facility] Differential cell count method Nom (Bld) Auto [facility] Eosinophils (Bld) [#/Vol] 0.04 10*3/uL [facility] Eosinophils/100 WBC (Bld) 0.4 % [facility] Erythrocyte distribution width (RBC) [Ratio] 12.8 % 11.5 - 15.0 % [facility] Hematocrit (Bld) [Volume fraction] 40 % 36.0 - 46.0 % [facility] Hemoglobin (Bld) [Mass/Vol] 13.1 g/dL 11.5 - 15.5 g/dL [facility] Immature granulocytes (Bld) [#/Vol] 0.03 10*3/uL [facility] Immature granulocytes/100 WBC (Bld) 0.3 % [facility] Interpretation and review of laboratory results Abnormal [facility] Lymphocytes (Bld) [#/Vol] 2.95 10*3/uL [facility] Lymphocytes/100 WBC (Bld) 27 % [facility] MCH (RBC) [Entitic mass] 28.1 pg 26.0 - 34.0 pg [facility] MCHC (RBC) [Mass/Vol] 32.8 g/dL 30.5 - 36.0 g/dL [facility] MCV (RBC) [Entitic vol] 85.8 fL 80.0 - 100.0 fL [facility] Monocytes (Bld) [#/Vol] 0.75 10*3/uL [facility] Monocytes/100 WBC (Bld) 6.9 % [facility] Neutrophils (Bld) [#/Vol] 7.13 10*3/uL [facility] Neutrophils/100 WBC (Bld) 65 % [facility] Nucleated RBC (Bld) [#/Vol] [facility] Nucleated RBC/100 WBC (Bld) [Ratio] 0 % /100 WBC [facility] Platelet mean volume (Bld) [Entitic vol] 8.9 fL Low 9.0 - 12.7 fL [facility] Platelets (Bld) [#/Vol] 343 10*3/uL [facility] RBC (Bld) [#/Vol] 4.66 10*6/uL 3.90 - 5.2 0 m/uL [facility] WBC (Bld) [#/Vol] 10.94 10*3/uL [facility] Basophils (Bld) [#/Vol] 0.04 10*3/uL Normal <0.11 [facility] Comment on above: Order Comment: Speci men Type: BLOOD SPECIMENOrdering Facility: [facility] Address: [address] [place] [address] Performed By: #### 5 7021-8 ####[facility] [id number] [address], [facility] [place] Basophils/100 WBC (Bld) 0.4 % Normal [facility] Comment on above: Order Comment: Speci men Type: BLOOD SPECIMENOrdering Facility: [facility] Address: [address] [place] [address] Performed By: #### 5 7021-8 ####[facility] [id number] [address], [place] [address] [place] Differential cell count method Nom (Bld) Auto Normal [facility] Comment on above: Order Comment: Speci men Type: BLOOD SPECIMENOrdering Facility: [facility] Address: [address] [place] [address] Performed By: #### 5 7021-8 ####[facility] [id number] [address], [facility] [place] Eosinophils (Bld) [#/Vol] 0.04 10*3/uL Normal <0.46 [facility] Comment on above: Order Comment: Speci men Type: BLOOD SPECIMENOrdering Facility: [facility] Address: [address] [place] [address] Performed By: #### 5 7021-8 ####[facility] [id number] [address], [facility] [place] Eosinophils/100 WBC (Bld) 0.4 % Normal [facility] Comment on above: Order Comment: Speci men Type: BLOOD SPECIMENOrdering Facility: [facility] Address: [address] [place] [address] Performed By: #### 5 7021-8 ####[facility] [id number] [address], [facility]95 [place] Erythrocyte distribution width (RBC) [Ratio] 12.8 % Normal 11.5-15.0 [facility] Comment on above: Order Comment: Speci men Type: BLOOD SPECIMENOrdering Facility: [facility] Address: [address] [place] [address] Performed By: #### 5 7021-8 ####[facility] [id number] [place] [address] [place] Hematocrit (Bld) [Volume fraction] 40.0 % Normal 36.0-46.0 [facility] Comment on above: Order Comment: Speci men Type: BLOOD SPECIMENOrdering Facility: [facility] Address: [address] [place] [address] Performed By: #### 5 7021-8 ####[facility] [id number] [place] [address] [place] Hemoglobin (Bld) [Mass/Vol] 13.1 g/dL Normal 11.5-15.5 [facility] Comment on above: Order Comment: Speci men Type: BLOOD SPECIMENOrdering Facility: [facility] Address: [address] [place] [address] Performed By: #### 5 7021-8 ####[facility] [id number] [place] [address] [place] Immature granulocytes (Bld) [#/Vol] 0.03 10*3/uL Normal <0.10 [facility] Comment on above: Order Comment: Speci men Type: BLOOD SPECIMENOrdering Facility: [facility] Address: [address] [place] [address] Performed By: #### 5 7021-8 ####[facility] [id number] [place] [address] [place] Immature granulocytes/100 WBC (Bld) 0.3 % Normal [facility] Comment on above: Order Comment: Speci men Type: BLOOD SPECIMENOrdering Facility: [facility] Address: [address] [place] [address] Performed By: #### 5 7021-8 ####[facility] [id number] [place] [address] [place] Lymphocytes (Bld) [#/Vol] 2.95 10*3/uL Normal 1.00-4.00 [facility] Comment on above: Order Comment: Speci men Type: BLOOD SPECIMENOrdering Facility: [facility] Address: [address] [place] [address] Performed By: #### 5 7021-8 ####[facility] [id number] [place] [address] [place] Lymphocytes/100 WBC (Bld) 27.0 % Normal [facility] Comment on above: Order Comment: Speci men Type: BLOOD SPECIMENOrdering Facility: [facility] Address: [address] [place] [address] Performed By: #### 5 7021-8 ####[facility] [id number] [place] [address] [place] MCH (RBC) [Entitic mass] 28.1 pg Normal 26.0-34.0 [facility] Comment on above: Order Comment: Speci men Type: BLOOD SPECIMENOrdering Facility: [facility] Address: [address] [place] [address] Performed By: #### 5 7021-8 ####[facility] [id number] [place] [address] [place] MCHC (RBC) [Mass/Vol] 32.8 g/dL Normal 30.5-36.0 [facility] Comment on above: Order Comment: Speci men Type: BLOOD SPECIMENOrdering Facility: [facility] Address: [address] [place] [address] Performed By: #### 5 7021-8 ####[facility] [id number] [place] [address] [place] MCV (RBC) [Entitic vol] 85.8 fL Normal 80.0-100.0 [facility] Comment on above: Order Comment: Speci men Type: BLOOD SPECIMENOrdering Facility: [facility] Address: [address] [place] [address] Performed By: #### 5 7021-8 ####[facility] [id number] [place] [address] [place] Monocytes (Bld) [#/Vol] 0.75 10*3/uL Normal <0.87 [facility] Comment on above: Order Comment: Speci men Type: BLOOD SPECIMENOrdering Facility: [facility] Address: [address] [place] [address] Performed By: #### 5 7021-8 ####[facility] [id number] [place] [address] [place] Monocytes/100 WBC (Bld) 6.9 % Normal [facility] Comment on above: Order Comment: Speci men Type: BLOOD SPECIMENOrdering Facility: [facility] Address: [address] [place] [address] Performed By: #### 5 7021-8 ####[facility] [id number] [place] [address] [place] Neutrophils (Bld) [#/Vol] 7.13 10*3/uL Normal 1.45-7.50 [facility] Comment on above: Order Comment: Speci men Type: BLOOD SPECIMENOrdering Facility: [facility] Address: [address] [place] [address] Performed By: #### 5 7021-8 ####[facility] [id number] [place] [address] [place] Neutrophils/100 WBC (Bld) 65.0 % Normal [facility] Comment on above: Order Comment: Speci men Type: BLOOD SPECIMENOrdering Facility: [facility] Address: [address] [place] [address] Performed By: #### 5 7021-8 ####[facility] [id number] [place] [address] [place] Nucleated RBC (Bld) [#/Vol] 10*3/uL Normal <0.01 [facility] Comment on above: Order Comment: Speci men Type: BLOOD SPECIMENOrdering Facility: [facility] Address: [address] [place] [address] Performed By: #### 5 7021-8 ####[facility] [id number] [place] [address] [place] Nucleated RBC/100 WBC (Bld) [Ratio] 0.0 /100 WBC Normal [facility] Comment on above: Order Comment: Speci men Type: BLOOD SPECIMENOrdering Facility: [facility] Address: [address] [place] [address] Performed By: #### 5 7021-8 ####[facility] [id number] [place] [address] [place] Platelet mean volume (Bld) [Entitic vol] 8.9 fL Low 9.0-12.7 [facility] Comment on above: Order Comment: Speci men Type: BLOOD SPECIMENOrdering Facility: [facility] Address: [address] [place] [address] Performed By: #### 5 7021-8 ####[facility] [id number] [place] [address] [place] Platelets (Bld) [#/Vol] 343 10*3/uL Normal 150-400 [facility] Comment on above: Order Comment: Speci men Type: BLOOD SPECIMENOrdering Facility: [facility] Address: [address] [place] [address] Performed By: #### 5 7021-8 ####[facility] [id number] [place] [address] [place] RBC (Bld) [#/Vol] 4.66 10*6/uL Normal 3.90-5.20 [facility] Comment on above: Order Comment: Speci men Type: BLOOD SPECIMENOrdering Facility: [facility] Address: [address] [place] [address] Performed By: #### 5 7021-8 ####[facility] [id number] [place] [address] [place] WBC (Bld) [#/Vol] 10.94 10*3/uL Normal 3.70-11.00 [facility] Comment on above: Order Comment: Speci men Type: BLOOD SPECIMENOrdering Facility: [facility] Address: [address] [place] [address] Performed By: #### 5 7021-8 ####[facility] [id number] [address] [place] CNOVon 10-19-2024 CNOV Office Visit (FAMPWS ) BEVERLY GIVENS ([id number]) 1950 F NFR Date Time Provider Department 10/19/24 1:40 PM LUIS M JOHNSON FAMPWS During your visit today, we recorded the [...] PCP - General (Family Medicine) Teddy Cox APRN.CQ DEVELOPER as Outsole Caser (Family Medicine) Summer Telles PA-C as Outsole Caser (Family Medicine) optho Medical/Family history review Reviewed [...] 121 Resp 18 Ht 170.2 cm (5' 7) Wt 130.2 kg (287 lb) SpO2 97% [...] a while. 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 She reports weight gain and acknowledges a lack of exercise, despite owning a recumbent exercise bike. Her diet includes quinoa and eggs as primary protein sources, and she admits to overeating fruits and vegetables, considering them free foods. She also mentions cravings for potatoes [...] neck, frequen (more content not included)... Normal [facility] Cobalamin (Vitamin B12) [Mas s/Vol]on 10-19-2024 Interpretation and review of laboratory results Normal [facility] Comprehensive metabolic 2000 panelon 10-19-2024 Albumin [Mass/Vol] 4.8 g/dL 3.9 - 4.9 g/dL Cl [facility] ALP [Catalytic activity/Vol] 80 U/L 34 - 123 U/L [facility] ALT [Catalytic activity/Vol] 30 U/L 7 - 38 U/L [facility] Anion gap [Moles/Vol] 18 mmol/L High 8 - 15 mmol/L [facility] AST [Catalytic activity/Vol] 26 U/L 13 - 35 U/L [facility] Bilirubin [Mass/Vol] 0.3 mg/dL 0.2 - 1 .3 mg/dL [facility] Calcium [Mass/Vol] 10.1 mg/dL 8.5 - 10. 2 mg/dL [facility] Chloride [Moles/Vol] 100 mmol/L 98 - 10 7 mmol/L [facility] CO2 [Moles/Vol] 19 mmol/L Low 22 - 30 mmol/L [facility] Creatinine [Mass/Vol] 1 mg/dL High 0.58 - 0.96 mg/dL [facility] GFR/1.73 sq M.predicted among non-blacks MDRD (S/P/Bld) [Vol rate/Area] 60 mL/min/{1.73_m2} - PINF [facility] Comment on above: Estimated Glomerular Filtration [...] 168 mg/dL High 74 - 99 mg/dL [facility] Comment on above: The [place] Diab[employer] s Association (ADA) provides guidance for [...] Standards of Medical Care in Diabetes 2016, [place] Diabetes Association. Diabetes Care. 2016.39(Suppl 1). Potassium [Moles/Vol] 4.5 mmol/L 3.7 - 5.1 mmol/L [facility] Protein [Mass/Vol] 7.9 g/dL 6.3 - 8.0 g/dL [facility] Sodium [Moles/Vol] 137 mmol/L 136 - 144 mmol/L [facility] Urea nitrogen [Mass/Vol] 18 mg/dL 7 - 21 mg/dL [facility] Albumin [Mass/Vol] 4.8 g/dL Normal 3.9-4.9 [facility] Comment on above: Order Comment: Speci men Type: BLOOD SPECIMENOrdering Facility: [facility] Address: [address] [place] [address] Performed By: #### 2 4323-8, 29895-8, 6-3, LIPNF ####[facility] [id number] [place] [address] [place] ALP [Catalytic activity/Vol] 80 U/L Normal 34-123 [facility] Comment on above: Order Comment: Speci men Type: BLOOD SPECIMENOrdering Facility: [facility] Address: [address] [place] [address] Performed By: #### 2 4323-8, 74951-9, 6-3, LIPNF ####[facility] [id number] [place] [address] [place] ALT [Catalytic activity/Vol] 30 U/L Normal 7-38 [facility] Comment on above: Order Comment: Speci men Type: BLOOD SPECIMENOrdering Facility: [facility] Address: [address] [place] [address] Performed By: #### 2 4323-8, 63990-2, 6-3, LIPNF ####[facility] [id number] [address] [address] [place] Anion gap [Moles/Vol] 18 mmol/L High 8-15 [facility] Comment on above: Order Comment: Speci men Type: BLOOD SPECIMENOrdering Facility: [facility] Address: [address] [place] [address] Performed By: #### 2 4323-8, 93819-3, 3015-3, LIPNF ####[facility] [id number] [place] [address] [place] AST [Catalytic activity/Vol] 26 U/L Normal 13-35 [facility] Comment on above: Order Comment: Speci men Type: BLOOD SPECIMENOrdering Facility: [facility] Address: [address] [place] [address] Performed By: #### 2 4323-8, , 3, LIPNF ####[facility] [id number] [place] [address] [place] Bilirubin [Mass/Vol] 0.3 mg/dL Normal 0.2-1.3 [facility] Comment on above: Order Comment: Speci men Type: BLOOD SPECIMENOrdering Facility: [facility] Address: [address] [place] [address] Performed By: #### 2 4323-8, , 3, LIPNF ####[facility] [id number] [place] [address] [place] Calcium [Mass/Vol] 10.1 mg/dL Normal 8.5-10.2 [facility] Comment on above: Order Comment: Speci men Type: BLOOD SPECIMENOrdering Facility: [facility] Address: [address] [place], [place] [address] Performed By: #### 2 4323-8, , 3, LIPNF ####[facility] [id number] [address] [address] [place] Chloride [Moles/Vol] 100 mmol/L Normal 98-107 [facility] Comment on above: Order Comment: Speci men Type: BLOOD SPECIMENOrdering Facility: [facility] Address: [address] [place], [place] [address] Performed By: #### 2 4323-8, 02335-7, 6-3, LIPNF ####[facility] [id number] [address] [address] [place] CO2 [Moles/Vol] 19 mmol/L Low 22-30 [facility] Comment on above: Order Comment: Speci men Type: BLOOD SPECIMENOrdering Facility: [facility] Address: [address] [place], [place] [address] Performed By: #### 2 4323-8, 48992-3, 6-3, LIPNF ####[facility] [id number] [address] [address] [place] Creatinine [Mass/Vol] 1.00 mg/dL High 0.58-0.96 [facility] Comment on above: Order Comment: Speci men Type: BLOOD SPECIMENOrdering Facility: [facility] Address: [address] [place] [address] Performed By: #### 2 4323-8, , 6-3, LIPNF ####[facility] [id number] [address] [address] [place] Creatinine and Glomerular filtration rate.predicted panel (S/P/Bld) 60 mL/min/1.73m??? Normal >=60 [facility] Comment on above: Order Comment: Speci men Type: BLOOD SPECIMENOrdering Facility: [facility] Address: [address] [place] [address] Result Comment: Prudence mated Glomerular Filtration Rate [...] actual GFR. Performed By: #### 2 4323-8, 29733-8, 3015-3, LIPNF ####[facility] [id number] [address] [address] [place] Glucose [Mass/Vol] 168 mg/dL High 74-99 [facility] Comment on above: Order Comment: Speci men Type: BLOOD SPECIMENOrdering Facility: [facility] Address: [address] [place] [address] Result Comment: The [place] Diabetes Association (ADA) provides guidance for cutoff [...] Standards of Medical Care in Diabetes 2016, [place] Diabetes Association. Diabetes Care. 2016.39(Suppl 1). Performed By: #### 2 4323-8, , 3, LIPNF ####[facility] [id number] [address] [address] [place] Potassium [Moles/Vol] 4.5 mmol/L Normal 3.7-5.1 [facility] Comment on above: Order Comment: Speci men Type: BLOOD SPECIMENOrdering Facility: [facility] Address: [address] [place] [address] Performed By: #### 2 4323-8, 30090-1, 3, LIPNF ####[facility] [id number] [address] [address] [place] Protein [Mass/Vol] 7.9 g/dL Normal 6.3-8.0 [facility] Comment on above: Order Comment: Speci men Type: BLOOD SPECIMENOrdering Facility: [facility] Address: [address] [place], [place] [address] Performed By: #### 2 4323-8, 87044-4, 6-3, LIPNF ####[facility] [id number] [address] [place] [address] [place] Sodium [Moles/Vol] 137 mmol/L Normal 136-144 [facility] Comment on above: Order Comment: Speci men Type: BLOOD SPECIMENOrdering Facility: [facility] Address: [address] [place] [address] Performed By: #### 2 4323-8, , 3, LIPNF ####[facility] [id number] [address] [address] [place] Urea nitrogen [Mass/Vol] 18 mg/dL Normal 7-21 [facility] Comment on above: Order Comment: Speci men Type: BLOOD SPECIMENOrdering Facility: [facility] Address: [address] [place] [address] Performed By: #### 2 4323-8, , 3, LIPNF ####[facility] [id number] [address] [address] [place] HbA1c (Bld)on 10-19-2024 Average glucose Estimated from glycated hemoglobin (Bld) [Mass/Vol] 154 mg/dL Normal [facility] Comment on above: Order Comment: Speci men Type: BLOOD SPECIMENOrdering Facility: [facility] Address: [address] [place] [address] Result Comment: eAG: (Estimated average glucose) is a calculated value from HgbA1c and is automobile rental representative of the average blood glucose level in the last 2-3 month period. Performed By: #### 5 5454-3 ####[facility] [id number] [address] [address] [place] HbA1c (Bld) [Mass fraction] 7.0 % High 4.3-5.6 [facility] Comment on above: Order Comment: Speci men Type: BLOOD SPECIMENOrdering Facility: [facility] Address: [address] [place] [address] Result Comment: [place] Diabetes Association guidelines indicate that patients with HgbA1c in the range 5.7-6.4% are at increased risk for development of diabetes, and intervention by lifestyle modification may be beneficial. HgbA1c greater or equal to 6.5% is considered diagnostic of diabetes. Performed By: #### 5 5454-3 ####[facility] [id number] [facility]William [facility] [address] [place] LIPID PANEL, NONFASTINGon Cholesterol [Mass/Vol] 208 mg/dL High NINF - 200 mg/dL [facility] Comment on above: <200 mg/dL, Desirabl e 200-239 mg/dL, Borderline high >239 mg/dL, High HDL Cholesterol, Nonfasting 57 mg/dL 39 - PINF mg/dL [facility] Comment on above: 40-59 mg/dL, Accepta ble >59 mg/dL, High: Negative risk factor for coronary heart disease <40 mg/dL, Low: Positive risk factor for coronary heart disease LDL Cholesterol Calculated, Nonfasting 116 mg/dL High NINF - 100 mg/dL [facility] Comment on above: <100 mg/dL, Optimal 100-129 mg/dL, Near optimal/above optimal 130-159 mg/dL, Borderline high 160-189 mg/dL, High >189 mg/dL, Very high Secondary prevention optimal LDL Cholesterol levels are recommended to be <70 mg/dL LDL cholesterol is calculated using the Mercer-NIH equation. LDL/HDL Ratio, Nonfasting 2.04 mg/dL NINF - 2.54 mg/dL [facility] Comment on above: Reference: 1. National Cholesterol Education Program ATP III Guideline At-A-Glance Quick Desk Reference: National Heart, Lung, and Blood [place]. National Institutes of Health. 2001: NIH Publication No. 01-3305. 2. An International Atherosclerosis Society position paper: global recommendations for the management of dyslipidemia: executive summary, Atherosclerosis. 2014: 232(2):410-413. Non HDL Cholesterol, Nonfasting 151 mg/dL High NINF - 130 mg/dL [facility] Comment on above: <130 mg/dL, Optimal 130-159 mg/dL, Near optimal/above optimal 160-189 mg/dL, Borderline high 190-219 mg/dL, High >219 mg/dL, Very high Secondary prevention optimal non HDL Cholesterol levels are recommended to be <100 mg/dL Total Chol/HDL Ratio, Nonfasting 3.65 mg/dL NINF - 5.10 mg/dL [facility] Triglycerides, Nonfasting 204 mg/dL High NINF - 150 mg/dL [facility] Comment on above: <150 mg/dL, Normal 150-199 mg/dL, Borderline high 200-499 mg/dL, High >499 mg/dL, Very high VLDL Cholesterol, Nonfasting 35 mg/dL High NINF - 30 mg/dL [facility] Cholesterol [Mass/Vol] 208 mg/dL High <200 [facility] Comment on above: Order Comment: Speci men Type: BLOOD SPECIMENOrdering Facility: [facility] Address: [address] [place] [address] Result Comment: <200 mg/dL, Desirable 200-239 mg/dL, Borderline high >239 mg/dL, High Performed By: #### 2 4323-8, , 3015-07, LIPNF ####[facility] [id number] [address] [place] HDL CHOLESTEROL, NF 57 mg/dL Normal >39 [facility] Comment on above: Order Comment: Speci men Type: BLOOD SPECIMENOrdering Facility: [facility] Address: [address] [place] [address] Result Comment: 40-5 9 mg/dL, Acceptable >59 mg/dL, High: Negative risk factor for coronary heart disease <40 mg/dL, Low: Positive risk factor for coronary heart disease Performed By: #### 2 4323-8, 27900-5, 3, LIPNF ####[facility] [id number] [place] [address] [place] LDL CHOLESTEROL CALCULATED, NF 116 mg/dL High <100 [facility] Comment on above: Order Comment: Sukhdev castro Type: BLOOD SPECIMENOrdering Facility: [facility] Address: [address] [place] [address] Result Comment: <100 mg/dL, Optimal 100-129 mg/dL, Near optimal/above optimal 130-159 mg/dL, Borderline high 160-189 mg/dL, High >189 mg/dL, Very high Secondary prevention optimal LDL Cholesterol levels are recommended to be <70 mg/dL LDL cholesterol is calculated using the Mercer-NIH equation. Performed By: #### 2 4323-8, 96130-9, 6-3, LIPNF ####[facility] [id number] [address] [place] LDL/HDL RATIO, NF 2.04 mg/dL Normal <2.54 [facility] Comment on above: Order Comment: Sukhdev castro Type: BLOOD SPECIMENOrdering Facility: [facility] Address: [address] [place] [address] Result Comment: Refe rence: 1. National Cholesterol Education Program ATP III Guideline At-A-Glance Quick Desk Reference: National Heart, Lung, and Blood [place]. National Institutes of Health. 2001: NIH Publication No. 01-3305. 2. An International Atherosclerosis Society position paper: global recommendations for the management of dyslipidemia: executive summary, Atherosclerosis. 2014: 232(2):410-413. Performed By: #### 2 4323-8, 98413-6, 6-3, LIPNF ####[facility] [id number] [place] [id number] [place] NON HDL CHOL, NF 151 mg/dL High <130 [facility] Comment on above: Order Comment: Sukhdev castro Type: BLOOD SPECIMENOrdering Facility: [facility] Address: [address] [place] [address] Result Comment: <130 mg/dL, Optimal 130-159 mg/dL, Near optimal/above optimal 160-189 mg/dL, Borderline high 190-219 mg/dL, High >219 mg/dL, Very high Secondary prevention optimal non HDL Cholesterol levels are recommended to be <100 mg/dL Performed By: #### 2 4323-8, 10026-5, 3015-3, LIPNF ####[facility] [id number] [address] [place] [address] [place] T CHOL/HDL RATIO NF 3.65 mg/dL Normal <5.10 [facility] Comment on above: Order Comment: Speci men Type: BLOOD SPECIMENOrdering Facility: [facility] Address: [address] [place], [place] [address] Performed By: #### 2 4323-8, 15808-1, 3015-3, LIPNF ####[facility] [id number] [place] [id number] [place] TRIGLYCERIDES, NF 204 mg/dL High <150 [facility] Comment on above: Order Comment: Speci men Type: BLOOD SPECIMENOrdering Facility: [facility] Address: [address] [place], [place] [id number] Result Comment: <150 mg/dL, Normal 150-199 mg/dL, Borderline high 200-499 mg/dL, High >499 mg/dL, Very high Performed By: #### 2 4323-8, , 3, LIPNF ####[facility] [id number] [address] [address] [place] VLDL CHOLESTEROL, NF 35 mg/dL High <30 [facility] Comment on above: Order Comment: Speci men Type: BLOOD SPECIMENOrdering Facility: [facility] Address: [address] [place] [address] Performed By: #### 2 4323-8, 00625-8, 3, LIPNF ####[facility] LABCLIA [id number] [address] [place] [address] [place] MAGNESIUMon 10-19-2024 Magnesium [Mass/Vol] 2.3 mg/dL 1.7 - 2 .3 mg/dL [facility] Magnesium SerPl-mCncon 10-19 Magnesium [Mass/Vol] 2.3 mg/dL Normal 1.7-2.3 [facility] Comment on above: Order Comment: Speci men Type: BLOOD SPECIMENOrdering Facility: [facility] Address: [address] [place], [place] [address] Performed By: #### 2 4323-8, 26175-3, 3016-3, LIPNF ####[facility] LABCLIA [id number] [place] [address] [place] Magnesium [Mass/Vol]on 10-19 Interpretation and review of laboratory results Normal [facility] No Panel Informationon 10-19 Interpretation and review of laboratory results Abnormal [facility] THYROID STIMULATING HORMONEo n 10-19-2024 TSH Qn 1.38 m[IU]/L [facility] TSH Qnon 10-19-2024 Interpretation and review of laboratory results Normal [facility] TSH SerPl-aCncon 10-19-2024 TSH Qn 1.380 m[IU]/L Normal 0.270-4.200 [facility] Comment on above: Order Comment: Speci men Type: BLOOD SPECIMENOrdering Facility: [facility] Address: [address] [place] [address] Performed By: #### 2 4323-8, 21916-6, 6-3, LIPNF ####[facility] LABCLIA [id number] [place] [id number] [place] VITAMIN B12on 10-19-2024 Cobalamin (Vitamin B12) [Mass/Vol] 308 pg/mL 232 - 1245 pg/mL [facility] Vit B12 SerPl-mCncon 025 Cobalamin (Vitamin B12) [Mass/Vol] 308 pg/mL Normal 232-1245 [facility] Comment on above: Order Comment: Speci men Type: BLOOD SPECIMENOrdering Facility: [facility] Address: [address] [place] [address] Performed By: #### 2 132-9 ####[facility] LABCLIA [id number] [facility]IT[facility] [address] [address] [place] CNOVon 07-03-2024 CNOV Office Visit (UCWSTR ) BEVERLY GIVENS ([id number]) 1950 F NFR Date Time Provider Department 07/03/24 10:45 AM LUIS M BAEZ [facility] During your visit today, we recorded the following information about you: Temperature Pulse Respiration Blood pressure 97 degrees 102/minute 18/minute 110/73 Weight 127.1 kg Luis M Baez APRN.CQ DEVELOPER 07/03/2024 12:20 PM Signed Subjective HPI Nontoxic-appearing [...] PHYSICIAN: David Wolfe MD PSG done @ [facility] AHI 11. Complete report has been scanned into [employer]. Neurology procedures. Osteopenia 06/07/2008 Osteopenia, senile 06/07/2008 [...] HFA ( (more content not included)... Normal [facility] STREP A MOLECULAR (POC)on Procedural Control Valid [facility] Strep A (POCT) Negative Negative [facility] XR CHEST 2V FRONTAL/LATon XR CHEST 2V [...] skeletal hyperostosis. IMPRESSION: No acute radiographic abnormality. Intervention Teacher: CATHY Transcribe Date/Time: Jul 03 2024 12:14P Dictated by : SUKHDEEP BOSE DO This examination was interpreted and the report reviewed and electronically signed by: SUKHDEEP BOSE DO on Jul 03 2024 12:15PM EST [id number] Normal [facility] XR Chest PA and Lateralon IMPRESSION: No acute radiographic abnormality. Intervention Teacher: CATHY Transcribe Date/Time: Jul 03 2024 12:14P [...] idiopathic skeletal hyperostosis. DIVISION OF RADIOLOGY Provider, [facility] - 07/03/2024 * * *Final Report* * [...] hyperostosis. IMPRESSION IMPRESSION: No acute radiographic abnormality. Intervention Teacher: PSCB Transcribe Date/Time: Jul 03 2024 12:14P Dictated by : SUKHDEEP BOSE DO This examination was interpreted and the report reviewed and electronically signed by: SUKHDEEP BOSE DO on Jul 03 2024 12:15PM EST [facility] Radiology Study observation (narrative) [facility] XR Chest PA and LateralOrder ed By: Ccf [facility] BEVERLY GIVENS ([id number]) 1950 F NFR Date Time Provider Department 04/20/24 TEDDY COX During your visit today, we recorded the following information about you: Teddy Cox APRN.CQ DEVELOPER 04/20/2024 8:01 AM Signed Please let patient [...] [Z86.0100] 0 (more content not included)... Normal [facility] CNOVon 04-19-2024 CNOV Office Visit (JACKIE ) BEVERLY GIVENS ([id number]) 1950 F NFR Date Time Provider Department 04/19/24 1:00 PM TEDDY COX During your visit today, we recorded the following information about you: Pulse Blood pressure Weight 128/minute 105/67 123.4 kg Teddy Cox APRN.CQ DEVELOPER 04/19/2024 1:21 PM Signed Chief Complaint Patient [...] PHYSICIAN: David Wolfe MD PSG done @ [facility] AHI 11. Complete report has been scanned into [facility]. Neurology procedures. Osteopenia 06/07/2008 Osteopenia, senile [...] No A1c (more content not included)... Normal [facility] HbA1c (Bld)on 04-19-2024 Average glucose Estimated from glycated hemoglobin (Bld) [Mass/Vol] 154 mg/dL Normal [facility] Comment on above: Order Comment: Speci men Type: BLOOD SPECIMENOrdering Facility: [facility] Address: [address] [place] [address] Result Comment: eAG: (Estimated average glucose) is a calculated value from HgbA1c and is automobile rental representative of the average blood glucose level in the last 2-3 month period. Performed By: #### 5 5454-3 ####[facility] LABCLIA [id number] [facility] [id number] [address] [place] HbA1c (Bld) [Mass fraction] 7.0 % High 4.3-5.6 [facility] Comment on above: Order Comment: Sukhdev castro Type: BLOOD SPECIMENOrdering Facility: [facility] Address: [address] [place] [address] Result Comment: [place] Diabetes Association guidelines indicate that patients with HgbA1c in the range 5.7-6.4% are at increased risk for development of diabetes, and intervention by lifestyle modification may be beneficial. HgbA1c greater or equal to 6.5% is considered diagnostic of diabetes. Performed By: #### 5 5454-3 ####[facility] LABCLIA [id number] [place] [address] [facility] [place] LIPID PANEL, NONFASTINGon Cholesterol [Mass/Vol] 178 mg/dL Normal <200 [facility] Comment on above: Order Comment: Sukhdev castro Type: BLOOD SPECIMENOrdering Facility: [facility] Address: [address] [place] [address] Result Comment: <200 mg/dL, Desirable 200-239 mg/dL, Borderline high >239 mg/dL, High Performed By: #### L IPNF ####[facility] LABCLIA [id number] [place] [address] [place] HDL CHOLESTEROL, NF 64 mg/dL Normal >39 [facility] Comment on above: Order Comment: Sukhdev castro Type: BLOOD SPECIMENOrdering Facility: [facility] Address: [address] [place] [address] Result Comment: 40-5 9 mg/dL, Acceptable >59 mg/dL, High: Negative risk factor for coronary heart disease <40 mg/dL, Low: Positive risk factor for coronary heart disease Performed By: #### L IPNF ####[facility] LABCLIA [id number] [place] [address] [place] LDL CHOLESTEROL, NF 81 mg/dL Normal <100 [facility] Comment on above: Order Comment: Sukhdev castro Type: BLOOD SPECIMENOrdering Facility: [facility] Address: [address] [place] [address] Result Comment: <100 mg/dL, Optimal 100-129 mg/dL, Near optimal/above optimal 130-159 mg/dL, Borderline high 160-189 mg/dL, High >189 mg/dL, Very high Secondary prevention optimal LDL Cholesterol levels are recommended to be < 70 mg/dL Performed By: #### L IPNF ####[facility] LABCLIA [id number] [address] OF [facility] LDL/HDL RATIO, NF 1.27 mg/dL Normal <2.54 [facility] Comment on above: Order Comment: Sukhdev castro Type: BLOOD SPECIMENOrdering Facility: [facility] Address: [address] [place] [address] Result Comment: Refe rence: 1. National Cholesterol Education Program ATP III Guideline At-A-Glance Quick Desk Reference: National Heart, Lung, and Blood [place]. National Institutes of Health. 2001: NIH Publication No. 01-3305. 2. An International Atherosclerosis Society position paper: global recommendations for the management of dyslipidemia: executive summary, Atherosclerosis. 2014: 232(2):410-413. Performed By: #### L IPNF ####[facility] LABCLIA [id number] [address] [place] NON HDL CHOL, NF 114 mg/dL Normal <130 [facility] Comment on above: Order Comment: Sukhdev castro Type: BLOOD SPECIMENOrdering Facility: [facility] Address: [address] [place] [address] Result Comment: <130 mg/dL, Optimal 130-159 mg/dL, Near optimal/above optimal 160-189 mg/dL, Borderline high 190-219 mg/dL, High >219 mg/dL, Very high Secondary prevention optimal non HDL Cholesterol levels are recommended to be <100 mg/dL Performed By: #### L IPNF ####[facility] LABCLIA [id number] [address] [place] T CHOL/HDL RATIO NF 2.78 mg/dL Normal <5.10 [facility] Comment on above: Order Comment: Speci men Type: BLOOD SPECIMENOrdering Facility: [facility] Address: [address] [place] [address] Performed By: #### L IPNF ####[facility] LABCLIA [id number] [place] [address] [place] TRIGLYCERIDES, NF 164 mg/dL High <150 [facility] Comment on above: Order Comment: Speci men Type: BLOOD SPECIMENOrdering Facility: [facility] Address: [address] [place] [address] Result Comment: <150 mg/dL, Normal 150-199 mg/dL, Borderline high 200-499 mg/dL, High >499 mg/dL, Very high Performed By: #### L IPNF ####[facility] LABCLIA [id number] [place] [address] [place] VLDL CHOLESTEROL, NF 33 mg/dL High <30 [facility] Comment on above: Order Comment: Speci men Type: BLOOD SPECIMENOrdering Facility: [facility] Address: [address] [place] [address] Performed By: #### L IPNF ####[facility] LABCLIA [id number] [place] [address] [place] Laila [facility]-16-2024 [facility] BEVERLY GIVENS ([id number]) 1950 F NFR Date Time Provider Department 02/16/24 [facility] M [facility]NSON [facility] During your visit today, we recorded the following information about you: Usha Leos 02/16/2024 1:35 PM Signed Patient called to advise pcp office that she got her COVID and flu vaccines today at [facility] in [place]. She would like it updated in her [...] for scre (more content not included)... Normal [facility] ALBUMIN/CREATININE RATIO, UR INEon 10-18-2023 Albumin DL <= 20 mg/L (U) [Mass/Vol] mg/L mg/L [facility] Albumin/Creatinine (U) [Mass ratio] mg/g NINF - 30 mg/g [facility] Comment on above: Adult Male and [...] [Mass/Vol] 93.5 mg/dL 20.0 - 300.0 mg/dL [facility] Urinalysis complete panel (U )on 10-18-2023 Bacteria LM.HPF (Urine sed) [#/Area] Negative Negative /HPF [facility] Bilirubin Ql (U) Negative Negative [facility] Clarity (Unsp spec) Clear Clear [facility] Color (U) Yellow Yellow [facility] Epithelial cells LM.HPF (Urine sed) [#/Area] Moderate /HPF [facility] Glucose Test strip (U) [Mass/Vol] Trace Abnormal Negative [facility] Hemoglobin Ql (U) Negative Negative [facility] Hyaline casts (Urine sed) [#/Area] 1-3 /LPF Abnormal 0 /LPF [facility] Interpretation and review of laboratory results Abnormal [facility] Ketones Ql (U) Negative Negative [facility] Leukocyte esterase Test strip Ql (U) 2+ Abnormal Negative [facility] Nitrite Ql (U) Negative Negative [facility] pH (U) 5.5 [pH] NINF - 8.5 [facility] Protein (U) [Mass/Vol] Negative Negative [facility] RBC LM.HPF (Urine sed) [#/Area] 0-2 /HPF 0-2 /HPF [facility] Specific gravity (U) [Rel density] 1.020 1.005 - 1.030 [facility] Urobilinogen Ql (U) 0.2 EU/dL 0.2-1.0 EU/dL [facility] WBC LM.HPF (Urine sed) [#/Area] 6-10 /HPF Abnormal 0-5 /HPF [facility] This test was developed and its performance characteristics determined by [facility]'s [facility] Pathology and Laboratory Medicine [place] ([facility]). It has not been cleared or approved by the FDA. [facility] is regulated under CLIA as qualified to perform high-complexity testing. This test is used for clinical purposes. It should not be regarded as investigational or for research. [facility] CBC W Auto Differential pane l (Bld)on 10-17-2023 Basophils (Bld) [#/Vol] 0.04 10*3/uL [facility] Basophils/100 WBC (Bld) 0.4 % [facility] Differential cell count method Nom (Bld) Auto [facility] Eosinophils (Bld) [#/Vol] 0.04 10*3/uL [facility] Eosinophils/100 WBC (Bld) 0.4 % [facility] Erythrocyte distribution width (RBC) [Ratio] 13.3 % 11.5 - 15.0 % [facility] Hematocrit (Bld) [Volume fraction] 41.6 % 36.0 - 46.0 % [facility] Hemoglobin (Bld) [Mass/Vol] 13.5 g/dL 11.5 - 15.5 g/dL [facility] Immature granulocytes (Bld) [#/Vol] NINF [facility] Immature granulocytes/100 WBC (Bld) 0.2 % [facility] Lymphocytes (Bld) [#/Vol] 3.64 10*3/uL [facility] Lymphocytes/100 WBC (Bld) 35.9 % [facility] MCH (RBC) [Entitic mass] 28.2 pg 26.0 - 34.0 pg [facility] MCHC (RBC) [Mass/Vol] 32.5 g/dL 30.5 - 36.0 g/dL [facility] MCV (RBC) [Entitic vol] 87.0 fL 80.0 - 100.0 fL [facility] Monocytes (Bld) [#/Vol] 0.73 10*3/uL [facility] Monocytes/100 WBC (Bld) 7.2 % [facility] Neutrophils (Bld) [#/Vol] 5.66 10*3/uL [facility] Neutrophils/100 WBC (Bld) 55.9 % [facility] Nucleated RBC (Bld) [#/Vol] [facility] Nucleated RBC/100 WBC (Bld) [Ratio] 0.0 % /100 WBC [facility] Platelet mean volume (Bld) [Entitic vol] 9.8 fL 9.0 - 12.7 fL [facility] Platelets (Bld) [#/Vol] 352 10*3/uL [facility] RBC (Bld) [#/Vol] 4.78 10*6/uL 3.90 - 5.2 0 m/uL [facility] WBC (Bld) [#/Vol] 10.13 10*3/uL [facility] Cobalamin (Vitamin B12) [Mas s/Vol]on 10-17-2023 Interpretation and review of laboratory results Normal [facility] Comprehensive metabolic 2000 panelon 10-17-2023 Albumin [Mass/Vol] 4.8 g/dL 3.9 - 4.9 g/dL [facility] ALP [Catalytic activity/Vol] 88 U/L 34 - 123 U/L [facility] ALT [Catalytic activity/Vol] 37 U/L 7 - 38 U/L [facility] Anion gap [Moles/Vol] 16 mmol/L High 8 - 15 mmol/L [facility] AST [Catalytic activity/Vol] 34 U/L 13 - 35 U/L [facility] Bilirubin [Mass/Vol] 0.3 mg/dL 0.2 - 1 .3 mg/dL [facility] Calcium [Mass/Vol] 10.3 mg/dL High 8.5 - 10. 2 mg/dL [facility] Chloride [Moles/Vol] 105 mmol/L 98 - 10 7 mmol/L [facility] CO2 [Moles/Vol] 19 mmol/L Low 22 - 30 mmol/L [facility] Creatinine [Mass/Vol] 0.73 mg/dL 0.58 - 0.96 mg/dL [facility] GFR/1.73 sq M.predicted among non-blacks MDRD (S/P/Bld) [Vol rate/Area] 88 mL/min/{1.73_m2} - PINF [facility] Comment on above: Estimated Glomerular Filtration [...] 161 mg/dL High 74 - 99 mg/dL [facility] Comment on above: The [place] Diabete s Association (ADA) provides guidance for [...] Standards of Medical Care in Diabetes 2016, [place] Diabetes Association. Diabetes Care. 2016.39(Suppl 1). Potassium [Moles/Vol] 4.8 mmol/L 3.7 - 5.1 mmol/L [facility] Protein [Mass/Vol] 8.2 g/dL High 6.3 - 8.0 g/dL [facility] Sodium [Moles/Vol] 140 mmol/L 136 - 144 mmol/L [facility] Urea nitrogen [Mass/Vol] 16 mg/dL 7 - 21 mg/dL [facility] HbA1c (Bld)on 10-17-2023 Average glucose Estimated from glycated hemoglobin (Bld) [Mass/Vol] 177 mg/dL [facility] Comment on above: eAG: (Estimated aver age glucose) is a calculated value from HgbA1c and is automobile rental representative of the average blood glucose level in the last 2-3 month period. HbA1c (Bld) [Mass fraction] 7.8 % High 4.3 - 5.6 % [facility] Comment on above: [place] Diabetes As sociation guidelines indicate that patients with HgbA1c in the range 5.7-6.4% are at increased risk for development of diabetes, and intervention by lifestyle modification may be beneficial. HgbA1c greater or equal to 6.5% is considered diagnostic of diabetes. Interpretation and review of laboratory results Abnormal [facility] LIPID PANEL, NONFASTINGon Cholesterol [Mass/Vol] 183 mg/dL NINF - 200 mg/dL [facility] Comment on above: <200 mg/dL, Desirabl e 200-239 mg/dL, Borderline high >239 mg/dL, High HDL Cholesterol, Nonfasting 62 mg/dL 39 - PINF mg/dL [facility] Comment on above: 40-59 mg/dL, Accepta ble >59 mg/dL, High: Negative risk factor for coronary heart disease <40 mg/dL, Low: Positive risk factor for coronary heart disease LDL Cholesterol, Nonfasting 86 mg/dL NINF - 100 mg/dL [facility] Comment on above: <100 mg/dL, Optimal 100-129 mg/dL, Near optimal/above optimal 130-159 mg/dL, Borderline high 160-189 mg/dL, High >189 mg/dL, Very high Secondary prevention optimal LDL Cholesterol levels are recommended to be < 70 mg/dL LDL/HDL Ratio, Nonfasting 1.39 mg/dL NINF - 2.54 mg/dL [facility] Comment on above: Reference: 1. National Cholesterol Education Program ATP III Guideline At-A-Glance Quick Desk Reference: National Heart, Lung, and Blood [place]. National Institutes of Health. 2001: NIH Publication No. 01-3305. 2. An International Atherosclerosis Society position paper: global recommendations for the management of dyslipidemia: executive summary, Atherosclerosis. 2014: 232(2):410-413. Non HDL Cholesterol, Nonfasting 121 mg/dL NINF - 130 mg/dL [facility] Comment on above: <130 mg/dL, Optimal 130-159 mg/dL, Near optimal/above optimal 160-189 mg/dL, Borderline high 190-219 mg/dL, High >219 mg/dL, Very high Secondary prevention optimal non HDL Cholesterol levels are recommended to be <100 mg/dL Total Chol/HDL Ratio, Nonfasting 2.95 mg/dL NINF - 5.10 mg/dL [facility] Triglycerides, Nonfasting 175 mg/dL High NINF - 150 mg/dL [facility] Comment on above: <150 mg/dL, Normal 150-199 mg/dL, Borderline high 200-499 mg/dL, High >499 mg/dL, Very high VLDL Cholesterol, Nonfasting 35 mg/dL High NINF - 30 mg/dL [facility] MAGNESIUMon 10-17-2023 Magnesium [Mass/Vol] 2.1 mg/dL 1.7 - 2 .3 mg/dL [facility] Magnesium [Mass/Vol]on 10-16 Interpretation and review of laboratory results Normal [facility] No Panel Informationon 10-16 Interpretation and review of laboratory results Abnormal [facility] THYROID STIMULATING HORMONEo n 10-17-2023 TSH Qn 1.240 m[IU]/L [facility] TSH Qnon 10-17-2023 Interpretation and review of laboratory results Normal [facility] VITAMIN B12on 10-17-2023 Cobalamin (Vitamin B12) [Mass/Vol] 397 pg/mL 232 - 1245 pg/mL [facility] MINI DIAG W IDRIS LEFTon 04-15 [facility] XR HIP GENERAL 3V PELV/AP/LA T RIGHTon 10-21-2022 [facility] CNPNon 10-17-2021 CNPN Telephone (AGSPINE1) TOSHABEVERLY HUDSON Simi ([id number]) 1950 F NFR Date Time Provider Department 10/17/21 SINDI SADLER AGSPINE1 During your visit today, we recorded the following information about you: Dena Wiggins 10/17/2021 1:54 PM Signed Left brief message on cell voicemail stating to call the office to schedule New patient appointment with Dr. Sadler or Meka Costa in [place]. Dena Wiggins Allergies As of Date: 10/17/2021 [...] [Z86.010] 08/19/2018 (more content not included)... Normal [facility] Vital Signs Date Time Vital Sign Value Performing Clinician Gonzales olpez 12-09-2024 14:47-0400 Body height 167.[address] Luis M Johnson MD Work Phone: [facility] 12-09-2024 14:47-0400 Body mass index (BMI) [Ratio] 40 kg/m2 Dr. Luis M Johnson MD Work Phone: [facility] 12-09-2024 14:47-0400 Body temperature 98.4 [degF] Dr. Luis M Johnson MD Work Phone: 8(683)469-056117 [place] [address] 12-09-2024 14:47-0400 Body weight 112.[address] Luis M Johnson MD Work Phone: 8(288)644-329452 [place] [address] 12-09-2024 14:47-0400 Diastolic blood pressure 60 mm[Hg] Dr. Luis M Johnson MD Work Phone: 9(113)973-751852 [place] [address] 12-09-2024 14:47-0400 Heart rate 100 /min Dr. Luis M Johnson MD Work Phone: 9(286)945-271452 [place] [address] 12-09-2024 14:47-0400 Respiratory rate 18 /min Dr. Luis M Johnson MD Work Phone: 9(222)075-271752 [place] [address] 12-09-2024 14:47-0400 SaO2% (BldA) [Mass fraction] 95 % Dr. Luis M Johnson MD Work Phone: 9(295)299-486452 [place] [address] 12-09-2024 14:47-0400 Systolic blood pressure 115 mm[Hg] Dr. Luis M Johsnon MD Work Phone: 6(131)326-945952 [place] [address] 12-02-2024 13:13-0400 Diastolic blood pressure 71 mm[Hg] Dr. Luis M Johnson MD Work Phone: 7(770)831-857552 [place] [address] 12-02-2024 13:13-0400 Heart rate 119 /min Dr. Luis M Johnson MD Work Phone: 8(293)825-804652 [place] [address] 12-02-2024 13:13-0400 Respiratory rate 18 /min Dr. Luis M Johnson MD Work Phone: 8(196)622-595752 [place] [address] 12-02-2024 13:13-0400 SaO2% (BldA) [Mass fraction] 96 % Dr. Luis M Johnson MD Work Phone: 8(697)380-338352 [place] [address] 12-02-2024 13:13-0400 Systolic blood pressure 115 mm[Hg] Dr. Luis M Johnson MD Work Phone: 2(732)098-612352 [place] [address] 11-24-2024 11:32-0400 Body height 1706.[address] Luis M Johnson MD Work Phone: 3(638)793-453052 [place] [address] 11-19-2024 13:25-0400 Body height 1706.[address] Luis M Johnson MD Work Phone: 5(735)984-286217 [place] [address] 11-19-2024 13:25-0400 Body mass index (BMI) [Ratio] 0.4 kg/m2 Dr. Luis M Johnson MD Work Phone: 8(646)564-844452 [place] [address] 11-19-2024 13:25-0400 Body temperature 97.8 [degF] Dr. Luis M Johnson MD Work Phone: 1(381)548-401152 [place] [address] 11-19-2024 13:25-0400 Body weight 127.[address] Luis M Johnson MD Work Phone: 6(476)126-403052 [place] [address] 11-19-2024 13:25-0400 Diastolic blood pressure 68 mm[Hg] Dr. Luis M Johnson MD Work Phone: 3(529)188-357752 [place] [address] 11-19-2024 13:25-0400 Heart rate 118 /min Dr. Luis M Johnson MD Work Phone: 1(499)649-285352 [place] [address] 11-19-2024 13:25-0400 Respiratory rate 18 /min Dr. Luis M Johnson MD Work Phone: 2([phone])[phone] [place] [address] 11-19-2024 13:25-0400 SaO2% (BldA) [Mass fraction] 97 % Dr. Luis M Johnson MD Work Phone: [phone] [place] [address] 11-19-2024 13:25-0400 Systolic blood pressure 113 mm[Hg] Dr. Luis M Johnson MD Work Phone: [facility] 10-19-2024 13:47-0400 Body height 170.2 cm Luis M Johnson MD Work Phone: [facility] 10-19-2024 13:47-0400 Body mass index (BMI) [Ratio] 44.95 kg/m2 Luis M Johnson MD Work Phone: [facility] 10-19-2024 13:47-0400 Body weight 130.18 kg Luis M Johnson MD Work Phone: [facility] 10-19-2024 13:47-0400 Diastolic blood pressure 60 mm[Hg] Luis M Johnson MD Work Phone: [facility] 10-19-2024 13:47-0400 Heart rate 121 /min Luis M Johnson MD Work Phone: [facility] 10-19-2024 13:47-0400 Respiratory rate 18 /min Luis M Johnson MD Work Phone: [facility] 10-19-2024 13:47-0400 SaO2% (BldA) [Mass fraction] 97 % Luis M Johnson MD Work Phone: [facility] 10-19-2024 13:47-0400 Systolic blood pressure 116 mm[Hg] Luis M Johnson MD Work Phone: [facility] 07-03-2024 10:54-0500 Body mass index (BMI) [Ratio] 44.55 kg/m2 Luis M Baez ORACLE APPLICATION ARCHITECT.CQ DEVELOPER Work Phone: [facility] 07-03-2024 10:54-0500 Body temperature 97 [degF] Luis M Baez ORACLE APPLICATION ARCHITECT.CQ DEVELOPER Work Phone: [facility] 07-03-2024 10:54-0500 Body weight 127.1 kg Luis M Baez ORACLE APPLICATION ARCHITECT.CQ DEVELOPER Work Phone: [facility] 07-03-2024 10:54-0500 Diastolic blood pressure 73 mm[Hg] Luis M Baez ORACLE APPLICATION ARCHITECT.CQ DEVELOPER Work Phone: [facility] 07-03-2024 10:54-0500 Heart rate 102 /min Luis M Baez ORACLE APPLICATION ARCHITECT.CQ DEVELOPER Work Phone: [facility] 07-03-2024 10:54-0500 Respiratory rate 18 /min Luis M Baez ORACLE APPLICATION ARCHITECT.CQ DEVELOPER Work Phone: [facility] 07-03-2024 10:54-0500 SaO2% (BldA) [Mass fraction] 96 % Luis M Baez ORACLE APPLICATION ARCHITECT.CQ DEVELOPER Work Phone: [facility] 07-03-2024 10:54-0500 Systolic blood pressure 110 mm[Hg] Luis M Baez ORACLE APPLICATION ARCHITECT.CQ DEVELOPER Work Phone: [facility] 04-19-2024 12:57-0500 Body mass index (BMI) [Ratio] 43.24 kg/m2 Teddy Cox ORACLE APPLICATION ARCHITECT.CQ DEVELOPER Work Phone: [facility] 04-19-2024 12:57-0500 Body weight 123.38 kg Teddy Cox ORACLE APPLICATION ARCHITECT.CQ DEVELOPER Work Phone: [facility] 04-19-2024 12:57-0500 Diastolic blood pressure 67 mm[Hg] Teddy Cox ORACLE APPLICATION ARCHITECT.CQ DEVELOPER Work Phone: [facility] 04-19-2024 12:57-0500 Heart rate 128 /min Teddy Cox ORACLE APPLICATION ARCHITECT.CQ DEVELOPER Work Phone: [facility] 04-19-2024 12:57-0500 Systolic blood pressure 105 mm[Hg] Teddy Cox ORACLE APPLICATION ARCHITECT.CQ DEVELOPER Work Phone: [facility] 10-17-2023 13:03-0400 Body height 168.9 cm Luis M Johnson MD Work Phone: [facility] 10-17-2023 13:03-0400 Body mass index (BMI) [Ratio] 46.74 kg/m2 Luis M Johnson MD Work Phone: [facility] 10-17-2023 13:03-0400 Body weight 133.36 kg Luis M Johnson MD Work Phone: [facility] 10-17-2023 13:03-0400 Diastolic blood pressure 82 mm[Hg] Luis M Johnson MD Work Phone: [facility] 10-17-2023 13:03-0400 Heart rate 102 /min Luis M Johnson MD Work Phone: [facility] 10-17-2023 13:03-0400 Respiratory rate 18 /min Luis M Johnson MD Work Phone: [facility] 10-17-2023 13:03-0400 Systolic blood pressure 124 mm[Hg] Luis M Johnson MD Work Phone: [facility] 04-15-2023 12:36-0500 Body weight 139.25 kg Teddy Michelle ORACLE APPLICATION ARCHITECT.CQ DEVELOPER Work Phone: [facility] 04-15-2023 12:36-0500 Diastolic blood pressure 73 mm[Hg] Teddy Yumikooble ORACLE APPLICATION ARCHITECT.CQ DEVELOPER Work Phone: [facility] 04-15-2023 12:36-0500 Heart rate 118 /min Teddy Knoble ORACLE APPLICATION ARCHITECT.CQ DEVELOPER Work Phone: [facility] 04-15-2023 12:36-0500 Respiratory rate 18 /min Teddy Yumikooble ORACLE APPLICATION ARCHITECT.CQ DEVELOPER Work Phone: [facility] 04-15-2023 12:36-0500 Systolic blood pressure 113 mm[Hg] Teddy Yumikooble ORACLE APPLICATION ARCHITECT.CQ DEVELOPER Work Phone: [facility] 03-17-2023 13:06-0500 Body height 167.6 cm Stormy SuperLikerstovitz PA-C Work Phone: [facility] 03-17-2023 13:06-0500 Body weight 138.8 kg Stormy Vetovitz PA-C Work Phone: [facility] 10-14-2022 12:37-0400 Body weight 137.89 kg Teddy Michelle ORACLE APPLICATION ARCHITECT.CQ DEVELOPER Work Phone: [facility] 10-14-2022 12:37-0400 Diastolic blood pressure 74 mm[Hg] Teddy Yumikooble ORACLE APPLICATION ARCHITECT.CQ DEVELOPER Work Phone: [facility] 10-14-2022 12:37-0400 Heart rate 110 /min Teddy Knoble ORACLE APPLICATION ARCHITECT.CQ DEVELOPER Work Phone: [facility] 10-14-2022 12:37-0400 Respiratory rate 16 /min Teddy Michelle ORACLE APPLICATION ARCHITECT.CQ DEVELOPER Work Phone: [facility] 10-14-2022 12:37-0400 Systolic blood pressure 126 mm[Hg] Teddy Knoble ORACLE APPLICATION ARCHITECT.CQ DEVELOPER Work Phone: [facility] 08-06-2022 11:31-0400 Body weight 138.35 kg Teddy Yumikooble ORACLE APPLICATION ARCHITECT.CQ DEVELOPER Work Phone: [facility] 08-06-2022 11:31-0400 Diastolic blood pressure 78 mm[Hg] Teddy Knoble ORACLE APPLICATION ARCHITECT.CQ DEVELOPER Work Phone: [facility] 08-06-2022 11:31-0400 Heart rate 112 /min Teddy Knoble ORACLE APPLICATION ARCHITECT.CQ DEVELOPER Work Phone: [facility] 08-06-2022 11:31-0400 Respiratory rate 18 /min Teddy Yumikooble ORACLE APPLICATION ARCHITECT.CQ DEVELOPER Work Phone: [facility] 08-06-2022 11:31-0400 Systolic blood pressure 124 mm[Hg] Teddy Knoble ORACLE APPLICATION ARCHITECT.CQ DEVELOPER Work Phone: [facility] 07-09-2022 12:34-0500 Body weight 138.35 kg Teddy Yumikooble ORACLE APPLICATION ARCHITECT.CQ DEVELOPER Work Phone: [facility] 07-09-2022 12:34-0500 Diastolic blood pressure 80 mm[Hg] Teddy Knoble ORACLE APPLICATION ARCHITECT.CQ DEVELOPER Work Phone: [facility] 07-09-2022 12:34-0500 Heart rate 114 /min Teddy Knoble ORACLE APPLICATION ARCHITECT.CQ DEVELOPER Work Phone: [facility] 07-09-2022 12:34-0500 Respiratory rate 20 /min Teddy Yumikooble ORACLE APPLICATION ARCHITECT.CQ DEVELOPER Work Phone: [facility] 07-09-2022 12:34-0500 Systolic blood pressure 142 mm[Hg] Teddy Knoble ORACLE APPLICATION ARCHITECT.CQ DEVELOPER Work Phone: [facility] 06-11-2022 12:37-0500 Body weight 138.8 kg Teddy Knoble ORACLE APPLICATION ARCHITECT.CQ DEVELOPER Work Phone: [facility] 06-11-2022 12:37-0500 Diastolic blood pressure 82 mm[Hg] Teddy Knoble ORACLE APPLICATION ARCHITECT.CQ DEVELOPER Work Phone: [facility] 06-11-2022 12:37-0500 Heart rate 112 /min Teddy Cox ORACLE APPLICATION ARCHITECT.CQ DEVELOPER Work Phone: [facility] 06-11-2022 12:37-0500 Respiratory rate 18 /min Teddy Cox ORACLE APPLICATION ARCHITECT.CQ DEVELOPER Work Phone: [facility] 06-11-2022 12:37-0500 Systolic blood pressure 148 mm[Hg] Teddy Cox ORACLE APPLICATION ARCHITECT.CQ DEVELOPER Work Phone: [facility] 04-12-2022 14:17-0500 Diastolic blood pressure 78 mm[Hg] Luis M Johnson MD Work Phone: [facility] 04-12-2022 14:17-0500 Systolic blood pressure 150 mm[Hg] Luis M Johnson MD Work Phone: [facility] 04-12-2022 13:54-0500 Body weight 139.25 kg Luis M Johnson MD Work Phone: [facility] 04-12-2022 13:54-0500 Heart rate 86 /min Luis M Johnson MD Work Phone: [facility] 04-12-2022 13:54-0500 Respiratory rate 16 /min Luis M Johnson MD Work Phone: [facility] 03-13-2022 16:42-0400 Body weight 138.7 kg [facility] Work Phone: 02-25-2022 13:42-0400 Body height 167.64 cm [facility] Work Phone: 02-25-2022 13:42-0400 Body weight 139.52 kg [facility] Work Phone: 01-30-2022 15:45-0400 Body height 167.64 cm [facility] Work Phone: 01-30-2022 15:45-0400 Body weight 138.16 kg [facility] Work Phone: 11-02-2021 12:21-0400 Diastolic blood pressure 82 mm[Hg] Luis M Johnson MD Work Phone: [facility] 11-02-2021 12:21-0400 Heart rate 108 /min Luis M Johnson MD Work Phone: [facility] 11-02-2021 12:21-0400 Systolic blood pressure 129 mm[Hg] Luis M Johnson MD Work Phone: [facility] 11-02-2021 11:48-0400 Body weight 135.17 kg Luis M Johnson MD Work Phone: [facility] 11-02-2021 11:48-0400 Respiratory rate 16 /min Luis M Johnson MD Work Phone: [facility] Encounters Encounter Date Encounter Type Care Provider Facility Start: 01-18-2025 End: 01-18-2025 Telephone encounter Luis M Johnson MD Work Phone: [facility] Comment on above: Patient Question ((n abelardo brand Lidoderm) Lidocane patches) Start: 12-09-2024 End: 12-09-[address] Tunde Resendiz MD -[facility] Work Phone: Start: 12-09-2024 End: 12-09-[address] Luis M Johnson MD Work Phone: -[facility] Start: 12-02-2024 End: 12-07-2024 Telephone encounter Luis M Johnson MD Work Phone: [facility] [place] Comment on above: letter for post offi ce Start: 12-02-2024 End: 12-02-[address] Tunde Resendiz MD -[facility] Work Phone: Start: 12-02-2024 End: 12-02-[address] Luis M Johnson MD Work Phone: -[facility] Start: 12-02-2024 End: 12-02-[address] Luis M Johnson MD Work Phone: -Laboratory Specimen Start: 12-02-2024 End: 12-02-[address] Tunde Resendiz MD -Laboratory Specimen Work Phone: Start: 12-02-2024 End: 12-02-2024 ambulatory Tunde Resendiz Facility:[facility] Start: 11-19-2024 End: 11-19-[address] Tunde Resendiz MD -[facility] Work Phone: Start: 11-19-2024 End: 11-19-[address] Luis M Johnson MD Work Phone: -[facility] Start: 10-26-2024 End: 10-26-2024 Refill Luis M Johnson MD Work Phone: [facility] [place] Comment on above: Refill Request Start: 10-19-2024 End: 10-19-2024 ambulatory LUIS M JOHNSON Facility:[facility] Start: 10-19-2024 End: 10-19-2024 Ophthalmic examination and evaluation Luis M Johnson MD Work Phone: [facility] Start: 10-19-2024 End: 10-19-2024 Patient encounter procedure Luis M Johnson MD Work Phone: [facility] [place] Comment on above: Medicare annual well ness visit, subsequent (Primary Dx); Type 2 diabetes mellitus with diabetic microalbuminuria, unspecified 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 traffic 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 (HCC); Diabetic eye exam ([facility]); Hypertension, essential; Mixed hyperlipidemia; Gastroesophageal reflux disease without esophagitis; Generalized anxiety disorder; Recurrent major depression in partial remission; Adjustment disorder, unspecified type; Fibromyalgia; Low serum vitamin B12; Morbid obesity with body mass index (BMI) of 45.0 to 49.9 in adult (HCC); Recovering alcoholic ([facility]); WHIT (obstructive sleep apnea); Foot callus; Chronic pain syndrome; Osteopenia, senile; Advance directive discussed with patient; Medication management; Need for vaccination; Screening for colon cancer; Encounter for screening mammogram for breast cancer; Neoplasm of uncertain behavior of skin of face Start: 10-19-2024 End: 10-19-2024 ambulatory LUIS M JOHNSON Facility:[facility] Start: 09-17-2024 End: 09-17-2024 ambulatory Nathalie Lacy RN Work Phone: [facility] Comment on above: Initial enrollment o lilia for Chronic Disease Management Start: 08-05-2024 End: 08-05-2024 ambulatory Briseida Ivy MA [facility] Start: 08-05-2024 End: 08-05-2024 Patient encounter procedure Briseida Ivy MA [facility] Comment on above: Population Health Na vigation Outreach ([employer] High Risk- Attempt 2) Start: 07-29-2024 End: 07-29-2024 Refill Luis M Johnson MD Work Phone: [address] [place] [address] Comment on above: Refill Request Start: 07-03-2024 End: 07-03-2024 Subsequent hospital visit by physician Cheryle [facility] [place] Work Phone: Radiology Comment on above: Acute cough [R05.1] Start: 07-03-2024 End: 07-03-2024 ambulatory LUIS M JOHNSON Facility:[facility] Start: 07-03-2024 End: 07-03-2024 Office outpatient visit 25 minutes Luis M Baez APRN.CQ DEVELOPER [facility] Phone: [facility] Comment on above: Sore throat (Primary Dx); Acute cough; Sinobronchitis Start: 07-01-2024 End: 07-01-2024 [facility] Start: 07-01-2024 End: 07-01-2024 Patient encounter procedure Briseida Ivy MA [facility] Comment on above: Population Health Na vigation Outreach ([employer] High Risk- Attempt 1) Start: 04-23-2024 End: 04-23-2024 Refill Luis M Johnson MD Work Phone: [facility] [place] Comment on above: Refill Request Start: 04-20-2024 End: 04-20-2024 Telephone encounter Teddy Cox APRN.CQ DEVELOPER Work Phone: [facility] [place] Comment on above: Results Start: 04-19-2024 End: 04-19-2024 Patient encounter procedure Teddy Cox APRN.CNP Work Phone: [facility] [place] Comment on above: Hypertension, essent ial (Primary Dx); Mixed hyperlipidemia; Gastroesophageal reflux disease without esophagitis; Type 2 diabetes mellitus with diabetic microalbuminuria, unspecified whether fci insulin use (HCC); Encounter for screening mammogram for breast cancer; WHIT (obstructive sleep apnea); Recurrent major depression in partial remission (HCC); Generalized anxiety disorder; Class 3 severe obesity with body mass index (BMI) of 40.0 to 44.9 in adult, unspecified obesity type, unspecified whether serious comorbidity present (HCC); Primary osteoarthritis of right hip Start: 04-19-2024 End: 04-19-2024 ambulatory LUIS M JOHNSON Facility:[facility] Start: 02-16-2024 End: 02-16-2024 Telephone encounter Luis M Johnson MD Work Phone: [facility] [place] Comment on above: Immunization update Start: 01-26-2024 End: 01-26-2024 Refill Luis M Johnson MD Work Phone: [facility] [place] Comment on above: Refill Request Start: 11-10-2023 Telephone encounter Summer cervantes PA-C Work Phone: [facility] [place] Comment on above: Results Start: 11-07-2023 Chart abstracting Luis M pardo MD Work Phone: [facility] [place] Comment on above: Outside Diabetic Eye Exam Start: 11-07-2023 Ophthalmic examinati on and evaluation Luis M Johnson MD Work Phone: [facility] Start: 11-04-2023 Telephone encounter Luis M Johnson MD Work Phone: [facility] [place] Comment on above: Results Start: 10-30-2023 End: 10-30-2023 Subsequent hospital visit by physician Bone Density [facility] Work Phone: Radiology Comment on above: Osteopenia, senile [ M85.80] Start: 10-23-2023 Refill Luis M lemus MD Work Phone: [facility] [place] Comment on above: Refill Request Start: 10-20-2023 Telephone encounter Luis M Johnson MD Work Phone: [facility] [place] Comment on above: Results Start: 10-17-2023 End: 10-17-2023 Ophthalmic examination and evaluation Luis M Johnson MD Work Phone: [facility] Start: 10-17-2023 End: 10-17-2023 Patient encounter procedure Luis M Johnson MD Work Phone: [facility] [place] Comment on above: Medicare annual [facility] visit, subsequent (Primary Dx); Type 2 diabetes mellitus with diabetic microalbuminuria, unspecified whether traffic 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 (HCC); Diabetic eye exam (HCC); [...] Refill Luis M lemus MD Work Phone: [facility] [place] Comment on above: Refill Request Start: 04-25-2023 Refill Luis M lemus MD Work Phone: [facility] [place] Comment on above: Refill Request Start: 04-15-2023 End: 04-15-2023 Subsequent hospital visit by physician Diagnostic Mammo [facility] Start: 04-15-2023 Telephone encounter Teddy hebert APRN.CQ DEVELOPER Work Phone: [facility] [place] Comment on above: Results Start: 04-15-2023 End: 04-15-2023 Patient encounter procedure Teddy Cox APRN.CNP Work Phone: [facility] [place] Comment on above: Fibromyalgia (Primar y Dx); DDD (degenerative disc disease), lumbar; Generalized anxiety disorder; Hypertension, essential; Gastroesophageal reflux disease without esophagitis; Type 2 diabetes mellitus with microalbuminuria, unspecified whether fci insulin use (HCC) ; WHIT (obstructive sleep apnea); Adjustment disorder, unspecified type; Mixed hyperlipidemia; Encounter for immunization; Low serum vitamin B12; Morbid obesity with body mass index (BMI) of 45.0 to 49.9 in adult (HCC); Recurrent major depression in partial remission (HCC); Chronic pain syndrome; Primary osteoarthritis of right hip Start: 03-29-2023 Refill Luis M lemus MD Work Phone: [facility] Comment on above: Refill Request Start: 03-28-2023 End: 03-28-2023 [facility]ulatory [facility] Comment on above: Primary osteoarthrit is of right hip (Primary Dx); Trochanteric bursitis of left hip; Morbid obesity ([facility]) Start: 03-22-2023 Telephone encounter Ernestina mohamud MD Work Phone: Mammography Comment on above: Mammogram Result Andrei l Back Start: 03-21-2023 Telephone encounter Teddy hebert APRN.CNP Work Phone: [facility] Comment on above: Results Start: 03-20-2023 End: 03-20-2023 Subsequent hospital visit by physician Screen Mammo [facility] Comment on above: Encounter for screen ing mammogram for malignant neoplasm of breast [Z12.31] Start: 03-19-2023 Telephone encounter Luis M Johnson MD Work Phone: [facility] Comment on above: Stool lab order IFOB T Start: 03-18-2023 ambulatory Teddy ([facility]) Latrice N [facility] [place] Comment on above: Population Health Na vigation Outreach ([employer] care gaps) Lab orders Start: 03-18-2023 E-mail encounter kate m caregiver Katlyn Almanza MA [facility] [place] Start: 03-17-2023 End: 03-17-2023 Patient encounter procedure Stormy Hamilton PA-C Work Phone: Orthopaedics Comment on above: Trochanteric bursiti s of left hip (Primary Dx); Primary osteoarthritis of right hip; Morbid obesity (HCC) Start: 01-28-2023 Refill Luis M lemus MD Work Phone: [facility] [place] Comment on above: Refill Request Start: 12-27-2022 Refill [facility] Comment on above: Refill Request Start: 10-21-2022 End: 10-21-2022 Patient encounter procedure Sundeep Solis MD Work Phone: Orthopaedics Comment on above: APPOINTMENT CANCELLE D (Primary Dx); Pain of right hip Start: 10-21-2022 End: 10-21-2022 Subsequent hospital visit by physician Cheryle [facility] [place] Work Phone: Radiology Comment on above: Pain in right hip [M 25.551] Start: 10-16-2022 Orders Only Sundeep Solis MD Work Phone: Orthopaedics Comment on above: Pain in right hip (P rimary Dx) Start: 10-14-2022 Telephone encounter Bethany Mackenzie Ney Comment on above: Advance Directives A ssist Start: 10-14-2022 End: 10-14-2022 Patient encounter procedure Teddy Cox APRN.CQ DEVELOPER Work Phone: [facility] Comment on above: Medicare annual well ness visit, subsequent (Primary Dx); Encounter for screening mammogram for malignant neoplasm of breast; Counseling regarding advanced directives; Type 2 diabetes mellitus with microalbuminuria, unspecified whether traffic 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 (HCC); Morbid obesity with body mass index (BMI) of 45.0 to 49.9 in adult ([facility]); Recovering alcoholic ([facility]); Recurrent major depression in partial remission ([facility]); Hypertension, essential; Gastroesophageal reflux disease without esophagitis; Generalized anxiety disorder; Mixed hyperlipidemia; WHIT (obstructive sleep apnea); Fibromyalgia; Screening breast examination Start: 08-06-2022 End: 08-06-2022 Patient encounter procedure Teddy Cox APRN.CNP [facility] Comment on above: Hypertension, essent ial (Primary Dx); Compulsive overeating Start: 07-09-2022 End: 07-09-2022 Patient encounter procedure Teddy Cox APRN.CQ DEVELOPER Work Phone: [facility] Comment on above: Hypertension, essent ial (Primary Dx) Start: 06-11-2022 End: 06-11-2022 Patient encounter procedure Teddy Cox APRN.CNP Work Phone: [facility] Comment on above: Hypertension, essent ial (Primary Dx); Environmental allergies Start: 06-06-2022 Refill Luis M lemus MD Work Phone: [facility] Comment on above: Refill Request Start: 04-27-2022 Telephone encounter Luis M Johnson MD Work Phone: [facility] Comment on above: Results Start: 04-16-2022 ambulatory Luis M lemus MD Work Phone: [facility] Comment on above: flexeril Start: 04-16-2022 E-mail encounter fro m caregiver Luis M Johnson MD Work Phone: [facility] [place] Start: 04-16-2022 Telephone encounter Luis M Johnson MD Work Phone: [facility] Comment on above: Insurance Authorizat ion (cyclobenzaprine) Start: 04-12-2022 End: 04-12-2022 Ophthalmic examination and evaluation Luis M Johnson MD Work Phone: [facility] Start: 04-12-2022 End: 04-12-2022 Patient encounter procedure Luis M Johnson MD Work Phone: [facility] Comment on above: Type 2 diabetes mathew itus with microalbuminuria, unspecified whether traffic 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 (HCC) (Primary Dx); Diabetic eye exam ([facility]); Hypertension, essential; Mixed hyperlipidemia; Gastroesophageal reflux disease without esophagitis; Recurrent major depression in partial remission ([facility]); Adjustment disorder, unspecified type; Generalized anxiety disorder; Recovering alcoholic ([facility]); WHIT (obstructive sleep apnea); Morbid obesity with body mass index (BMI) of 45.0 to 49.9 in adult ([facility]); Fibromyalgia; Low serum vitamin B12; Screening for colon cancer; Medication management Start: 04-10-2022 End: 04-10-2022 ambulatory [facility] Work Phone: Start: 04-10-2022 End: 04-10-2022 [facility] Start: 03-29-2022 Refill Luis M lemus MD Work Phone: [facility] Comment on above: Refill Request Start: 03-28-2022 ambulatory [facility] [place] Comment on above: Population Health Na vigation Outreach ([employer] care gap) Start: 02-25-2022 End: 03-11-2022 ambulatory [facility] Work Phone: Start: 02-25-2022 End: 03-11-2022 [facility] Start: 02-05-2022 Refill Luis M elmus MD Work Phone: [facility] Comment on above: flu shot received Start: 01-30-2022 End: 02-08-2022 ambulatory [facility] Work Phone: Start: 01-30-2022 End: 02-08-2022 [facility] Start: 01-08-2022 [facility]ulatory [facility] [place] Comment on above: Population Health Na vigation Outreach ([employer] Care Gaps) Start: 01-03-2022 Telephone encounter Luis M Johnson MD Work Phone: [facility] Comment on above: Orders Start: 11-02-2021 End: 11-02-2021 Patient encounter procedure Luis M Johnson MD Work Phone: [facility] Comment on above: Elevated blood press ure reading without diagnosis of hypertension (Primary Dx) Start: 10-30-2021 Orders Only Sundeep Solis MD Work Phone: Orthopaedics Comment on above: Left hand pain (Prim sandra Dx); Bilateral shoulder pain, unspecified chronicity Start: 10-24-2021 Documentation procedure Mammog curtis Coordinator [facility] Start: 10-24-2021 Letter encounter Mammography Coordinator [facility] Department Start: 10-24-2021 Telephone encounter Summer cervantes PA-C Work Phone: Family [facility] [place] Comment on above: Results Start: 10-23-2021 End: 10-23-2021 Subsequent hospital visit by physician Screen Mammo [facility] Comment on above: Encounter for screen ing mammogram for breast cancer [Z12.31] Start: 10-22-2021 Telephone encounter Luis M Johnson MD Work Phone: Family [facility] [place] Comment on above: Referral Request Start: 10-17-2021 Telephone encounter Sindi Sadler MD Work Phone: [facility] [place] Comment on above: Appointment Start: 10-13-2021 Telephone encounter Luis M Johnson MD Work Phone: [facility] [place] Comment on above: Patient Update; Bindu ent Question Start: 10-12-2021 Telephone encounter Luis M Johnson MD Work Phone: [facility] [place] Comment on above: Patient Update; FYI- No Action Needed Appointment Start: 10-10-2021 Patient encounter procedure Luis M Johnson MD Work Phone: [facility] Work Phone: Start: 09-24-2021 Refill Luis M lemus MD Work Phone: [facility] [place] Comment on above: Refill Request Start: 09-06-2021 Telephone encounter Luis M Johnson MD Work Phone: [facility] [place] Comment on above: Appointment Start: 04-06-2021 Patient encounter procedure Luis M Johnson MD Work Phone: [facility] Work Phone: Start: 04-03-2021 End: 04-03-2021 Patient encounter procedure LUIS M JOHNSON MD [facility] Start: 06-19-2020 Ophthalmic examinati on and evaluation Luis M Johnson MD Work Phone: [facility] Procedures Date Procedure Procedure Detail Performing Clinician Start: 10-19-2024 [employer] COVI D-19 VACCINE AGE 12+ YR (ANNIAIRNATMarty) Luis M Johnson MD Work Phone: Start: 07-03-2024 Radiologic exam ches t 2 views Luis M Baez ORACLE APPLICATION ARCHITECT.CQ DEVELOPER Work Phone: Start: 07-03-2024 STREP A MOLECULAR (POC) Mary YOU Work Phone: Start: 10-17-2023 PFIZER-BIONTECH COVI D-19 VACCINE () AGE 12+ YR Luis M Johnson MD Work Phone: Start: 04-15-2023 Digital breast tomosynthesis unilateral Teddy Cox ORACLE APPLICATION ARCHITECT.CQ DEVELOPER Work Phone: Start: 04-15-2023 PFIZER-BIONTECH COVI D-19 VACCINE () AGE 12+ YR Teddy Cox ORACLE APPLICATION ARCHITECT.CQ DEVELOPER Work Phone: Start: 10-21-2022 Radex hip unilateral [...] Detail Author Start: 01-29-2026 Urine microalbumin profile [facility] Start: 10-22-2025 Hepatitis B screening Urine Al bumin:Creatinine Ratio [facility] Start: 10-22-2025 Screening for malign ant neoplasm of colon [facility] Start: 10-19-2025 Annual PCP Team Second Watch Sergeant bairon Disease Visit Annual PCP Team Chronic Disease Visit [facility] Start: 10-19-2025 Diabetic foot examination Diabetic Foot Exam [facility] Start: 10-19-2025 Hepatitis B surface antibody level LDL Cholesterol [facility] Start: 10-19-2025 RSV Vaccine (1 - Ris k 60-74 years 1-dose series) RSV Vaccine (1 - Risk 60-74 years 1-dose series) [facility] Comment on above: Postponed from 06/22 (Insurance Coverage) Start: 10-19-2025 Screening for malign ant neoplasm of breast Mammogram Screening [facility] Comment on above: Postponed from 03/20 (Declined at this time) Start: 10-19-2025 Shingrix Vaccine (2 of 3) Shingrix Vaccine (2 of 3) [facility] Comment on above: Postponed from 06/24 (Insurance Coverage) Start: 07-03-2025 BP Controlled (<130/80) BP Controlle d (<130/80) [facility] Start: 04-21-2025 End: 04-21-2025 Patient encounter procedure 04/21/2025 1:00 PM EST Office Visit [facility] [address] [place] [address] Summer Telles PA-C [address] [place] [address] 6 month follow up [facility] Comment on above: 6 month follow up Start: 04-20-2025 Hemoglobin A1c measurement HbA1C [facility] Start: 04-19-2025 Annual PCP Team Second Watch Sergeant bairon Disease Visit Annual PCP Team Chronic Disease Visit [facility] Start: 04-19-2025 BP Controlled (<130/80) BP Controlle d (<130/80) [facility] Start: 04-19-2025 Hepatitis B surface antibody level LDL Cholesterol [facility] Start: 01-10-2025 Influenza vaccination Influenza Vacc ine (#1) [facility] Start: 10-19-2024 End: 01-18-2025 Microalbumin/Creatinine [Mass Ratio] in Urine ALBUMIN/CREATININE RATIO, URINE Lab Routine Type 2 diabetes mellitus with diabetic microalbuminuria, unspecified whether traffic 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 (HCC) Expected: 10/19/2024, Expires: 01/18/2025 [facility] Comment on above: Expected: 10/19/2024 , Expires: 01/18/2025 Start: 10-19-2024 End: 01-18-2025 Urinalysis complete panel - Urine URINALYSIS, WITH MICROSCOPIC Lab Routine Type 2 diabetes mellitus with diabetic microalbuminuria, unspecified whether fci insulin use (HCC) Hypertension, essential Mixed hyperlipidemia Expected: 10/19/2024, Expires: 01/18/2025 [facility] Comment on above: Expected: 10/19/2024 , Expires: 01/18/2025 Start: 10-19-2024 End: 10-19-2024 Patient encounter procedure [facility] [place] Comment on above: medicare wellness Start: 10-18-2024 Hemoglobin A1c measurement HbA1C [facility] Start: 10-17-2024 Hepatitis B screening Urine Al bumin:Creatinine Ratio [facility] Start: 10-16-2024 Annual PCP Team Second Watch Sergeant bairon Disease Visit Annual PCP Team Chronic Disease Visit [facility] Start: 10-16-2024 BP Controlled (<130/80) BP Controlle d (<130/80) [facility] Start: 10-16-2024 Diabetic foot examination Diabetic Foot Exam [facility] Start: 10-16-2024 Hepatitis B surface antibody level LDL Cholesterol [facility] Start: 10-16-2024 RSV Vaccine (1 - 1-d ose 60+ series) RSV Vaccine (1 - 1-dose 60+ series) [facility] Comment on above: Postponed from 06/22 (Insurance Coverage) Start: 10-16-2024 RSV Vaccine (1 - Ris k 60-74 years 1-dose series) RSV Vaccine (1 - Risk 60-74 years 1-dose series) [facility] Comment on above: Postponed from 06/22 (Insurance Coverage) Start: 10-16-2024 Shingrix Vaccine (2 of 3) Shingrix Vaccine (2 of 3) [facility] Comment on above: Postponed from 06/24 (Insurance Coverage) Start: 10-08-2024 Glaucoma screening Dilated Retinal E xam [facility] Start: 08-16-2024 Covid-19 Vaccine ( season) Covid-19 Vaccine ( season) [facility] Start: 05-12-2024 Advance Directive Discussion Advance Directive Discussion [facility] Start: 05-12-2024 Medicare Advantage Annual Wellness Visit Medicare Advantage Annual Wellness Visit [facility] Start: 05-01-2024 Screening for malign ant neoplasm of colon [facility] Start: 04-19-2024 End: 07-19-2024 Hemoglobin A1c in Blood [facility] Work Phone: Comment on above: Expected: 04/19/2024 , Expires: 07/19/2024 Start: 04-19-2024 End: 07-19-2024 LIPID PANEL, NONFASTING [facility] Comment on above: Expected: 04/19/2024 , Expires: 07/19/2024 Start: 04-19-2024 End: 04-19-2024 Patient encounter procedure 04/19/2024 1:00 PM EST Office Visit [facility] [place] [address] [place] [address] Teddy Cox APRN.CQ DEVELOPER [address] [place], [place] [id number] [address] [facility] Comment on above: 6 month follow up Start: 04-17-2024 Hemoglobin A1c measurement HbA1C [facility] Start: 04-15-2024 Annual PCP Team Second Watch Sergeant bairon Disease Visit Annual PCP Team Chronic Disease Visit [facility] Start: 04-15-2024 BP Controlled (<130/80) BP Controlle d (<130/80) [facility] Start: 03-20-2024 Mammography Mammogram Screening [facility] Start: 03-20-2024 Screening for malign ant neoplasm of breast Mammogram Screening [facility] Start: 01-11-2024 Influenza vaccination Influenza Vacc ine (#1) [facility] Start: 11-04-2023 End: 02-03-2024 25-hydroxyvitamin D3 [Mass/volume] in Serum or Plasma VITAMIN D 25 HYDROXY Lab Routine Hypercalcemia Expected: 11/04/2023, Expires: 02/03/2024 [facility] Work Phone: Comment on above: Expected: 11/04/2023 , Expires: 02/03/2024 Start: 10-30-2023 End: 10-30-2023 Patient encounter procedure 10/30/2023 2:15 PM EDT Appointment Radiology [address] [place] [id number] Osteopenia, senile [M85.80] Radiology Comment on above: Osteopenia, senile [ M85.80] Start: 10-30-2023 End: 10-30-2023 ambulatory 10/30/2023 1:15 PM EDT Results Only [place] [facility] [address] [place] [address] [place] [facility] Start: 10-20-2023 End: 01-19-2024 Calcium [Mass/volume] in Serum or Plasma CALCIUM, TOTAL Lab Routine Hypercalcemia Expected: 10/20/2023, Expires: 01/19/2024 [facility] Work Phone: Comment on above: Expected: 10/20/2023 , Expires: 01/19/2024 Start: 10-20-2023 End: 01-19-2024 Parathyrin.intact [Mass/volume] in Serum or Plasma PTH INTACT Lab Routine Hypercalcemia Expected: 10/20/2023, Expires: 01/19/2024 [facility] Comment on above: Expected: 10/20/2023 , Expires: 01/19/2024 Start: 10-15-2023 3 comp foot exam completed DIABETIC FOOT EXAM [facility] Start: 10-15-2023 ANNUAL PCP TEAM REVENUE FIELD AUDITOR BAIRON DISEASE VISIT ANNUAL PCP TEAM CHRONIC DISEASE VISIT [facility] Start: 10-15-2023 BP CONTROLLED (<130/80) BP CONTROLLE D (<130/80) [facility] Start: 10-15-2023 Diabetic foot examination Diabetic Foot Exam [facility] Start: 10-03-2023 Hemoglobin A1c measurement HbA1C [facility] Start: 10-03-2023 Hemoglobin A1c/Hemoglobin.total in Blood HbA1C [facility] Start: 10-02-2023 Hepatitis B screening URINE AL BUMIN:CREATININE RATIO [facility] Start: 10-02-2023 Hepatitis B surface antibody level LDL CHOLESTEROL [facility] Start: 08-07-2023 ANNUAL PCP TEAM REVENUE FIELD AUDITOR BAIRON DISEASE VISIT ANNUAL PCP TEAM CHRONIC DISEASE VISIT [facility] Start: 08-07-2023 BP CONTROLLED (<130/80) BP CONTROLLE D (<130/80) [facility] Start: 07-09-2023 ANNUAL PCP TEAM REVENUE FIELD AUDITOR BAIRON DISEASE VISIT ANNUAL PCP TEAM CHRONIC DISEASE VISIT [facility] Start: 06-11-2023 ANNUAL PCP TEAM REVENUE FIELD AUDITOR BAIRON DISEASE VISIT ANNUAL PCP TEAM CHRONIC DISEASE VISIT [facility] Start: 05-31-2023 Glaucoma screening Dilated Retinal E xam [facility] Start: 05-31-2023 Hepatitis C antibody , confirmatory test DILATED RETINAL EXAM [facility] Start: 05-14-2023 ANNUAL PCP TEAM REVENUE FIELD AUDITOR BAIRON DISEASE VISIT ANNUAL PCP TEAM CHRONIC DISEASE VISIT [facility] Start: 05-12-2023 Advance Directive Discussion Advance Directive Discussion [facility] Start: 05-11-2023 ADVANCE DIRECTIVE DISCUSSION ADVANCE DIRECTIVE DISCUSSION [facility] Comment on above: Postponed from 05/12 (Declined at this time) Start: 04-23-2023 COLORECTAL CANCER SCREENING COLORECTAL CANCER SCREENING [facility] Start: 04-23-2023 FECAL OCCULT BLOOD FECAL OCCULT BLOO D [facility] Start: 04-23-2023 Screening for malign ant neoplasm of colon [facility] Start: 04-12-2023 ANNUAL PCP TEAM REVENUE FIELD AUDITOR BAIRON DISEASE VISIT ANNUAL PCP TEAM CHRONIC DISEASE VISIT [facility] Start: 04-12-2023 SHINGRIX VACCINE (2 of 3) SHINGRIX VACCINE (2 of 3) [facility] Comment on above: Postponed from 06/24 (Insurance Coverage) Start: 04-10-2023 Hepatitis B surface antibody level LDL CHOLESTEROL [facility] Start: 04-04-2023 End: 07-04-2023 Comprehensive metabolic 2000 panel - Serum or Plasma COMP METABOLIC PANEL Lab Routine Hypertension, essential Mixed hyperlipidemia Type 2 diabetes mellitus with microalbuminuria, unspecified whether fci insulin use (HCC) Hypercalcemia Expected: 04/04/2023, Expires: 07/04/2023 [facility] Work Phone: Comment on above: Expected: 04/04/2023 , Expires: 07/04/2023 Start: 04-04-2023 End: 07-04-2023 Hemoglobin A1c in Blood HGB A1C Lab Routine Type 2 diabetes mellitus with microalbuminuria, unspecified whether traffic 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 (HCC) Expected: 04/04/2023, Expires: 07/04/2023 [facility] Work Phone: Comment on above: Expected: 04/04/2023 , Expires: 07/04/2023 Start: 04-04-2023 End: 07-04-2023 Parathyrin.intact [Mass/volume] in Serum or Plasma PTH INTACT BLD Lab Routine Hypercalcemia Expected: 04/04/2023, Expires: 07/04/2023 [facility] Work Phone: Comment on above: Expected: 04/04/2023 , Expires: 07/04/2023 Start: 04-03-2023 Hemoglobin A1c/Hemoglobin.total in Blood HBA1C [facility] Start: 01-10-2023 Covid-19 Vaccine () Covid-19 Vaccine () [facility] Start: 01-10-2023 Influenza vaccination C [facility] Start: 11-02-2022 ANNUAL PCP TEAM REVENUE FIELD AUDITOR BAIRON DISEASE VISIT ANNUAL PCP TEAM CHRONIC DISEASE VISIT [facility] Start: 10-23-2022 Mammography [facility] Start: 10-10-2022 3 comp foot exam completed DIABETIC FOOT EXAM [facility] Start: 10-10-2022 ANNUAL PCP TEAM REVENUE FIELD AUDITOR BAIRON DISEASE VISIT ANNUAL PCP TEAM CHRONIC DISEASE VISIT [facility] Start: 10-08-2022 Hemoglobin A1c/Hemoglobin.total in Blood HBA1C [facility] Start: 09-27-2022 End: 11-27-2022 ALBUMIN/CREAT RATIO RND UR ALBUMIN/CREAT RATIO RND UR Lab Routine Type 2 diabetes mellitus with microalbuminuria, unspecified whether fci insulin use (HCC) Expected: 09/27/2022, Expires: 11/27/2022 [facility] Work Phone: Comment on above: Expected: 09/27/2022 , Expires: 11/27/2022 Start: 09-27-2022 End: 11-27-2022 CBC W Auto Differential panel - Blood CBC + DIFF Lab Routine Type 2 diabetes mellitus with microalbuminuria, unspecified whether fci insulin use (HCC) Low serum vitamin B12 Expected: 09/27/2022, Expires: 11/27/2022 [facility] Work Phone: Comment on above: Expected: 09/27/2022 , Expires: 11/27/2022 Start: 09-27-2022 End: 11-27-2022 Cobalamin (Vitamin B12) [Mass/volume] in Serum or Plasma VITAMIN B12 BLOOD Lab Routine Gastroesophageal reflux disease without esophagitis Low serum vitamin B12 Medication management Expected: 09/27/2022, Expires: 11/27/2022 [facility] Work Phone: Comment on above: Expected: 09/27/2022 , Expires: 11/27/2022 Start: 09-27-2022 End: 11-27-2022 Comprehensive metabolic 2000 panel - Serum or Plasma COMP METABOLIC PANEL Lab Routine Type 2 diabetes mellitus with microalbuminuria, unspecified whether fci insulin use (HCC) Mixed hyperlipidemia Hypertension, essential Expected: 09/27/2022, Expires: 11/27/2022 [facility] Work Phone: Comment on above: Expected: 09/27/2022 , Expires: 11/27/2022 Start: 09-27-2022 End: 11-27-2022 Hemoglobin A1c in Blood HGB A1C Lab Routine Type 2 diabetes mellitus with microalbuminuria, unspecified whether fci insulin use (HCC) Expected: 09/27/2022, Expires: 11/27/2022 [facility] Work Phone: Comment on above: Expected: 09/27/2022 , Expires: 11/27/2022 Start: 09-27-2022 End: 11-27-2022 LIPID PANEL, NONFASTING LIPID PANEL, NONFASTING Lab Routine Type 2 diabetes mellitus with microalbuminuria, unspecified whether fci insulin use (HCC) Mixed hyperlipidemia Hypertension, essential Expected: 09/27/2022, Expires: 11/27/2022 [facility] Work Phone: Comment on above: Expected: 09/27/2022 , Expires: 11/27/2022 Start: 09-27-2022 End: 11-27-2022 Magnesium [Mass/volume] in Serum or Plasma MAGNESIUM BLD Lab Routine Gastroesophageal reflux disease without esophagitis Medication management Expected: 09/27/2022, Expires: 11/27/2022 [facility] Work Phone: Comment on above: Expected: 09/27/2022 , Expires: 11/27/2022 Start: 09-27-2022 End: 11-27-2022 Urinalysis complete panel - Urine URINALYSIS, WITH MICROSCOPIC Lab Routine Type 2 diabetes mellitus with microalbuminuria, unspecified whether fci insulin use (HCC) Mixed hyperlipidemia Hypertension, essential Expected: 09/27/2022, Expires: 11/27/2022 [facility] Work Phone: Comment on above: Expected: 09/27/2022 , Expires: 11/27/2022 Start: 09-05-2022 Hepatitis B screening URINE AL BUMIN:CREATININE RATIO [facility] Start: 09-05-2022 Hepatitis B surface antibody level LDL CHOLESTEROL [facility] Start: 07-17-2022 COVID-19 VACCINE (6 - Moderna series) COVID-19 VACCINE (6 - Moderna series) [facility] Start: 06-10-2022 Hepatitis C antibody , confirmatory test DILATED RETINAL EXAM [facility] Comment on above: Postponed from 06/16 (Currently Scheduled) Start: 05-12-2022 ADVANCE DIRECTIVE DISCUSSION ADVANCE DIRECTIVE DISCUSSION [facility] Start: 04-06-2022 ANNUAL PCP TEAM REVENUE FIELD AUDITOR BAIRON DISEASE VISIT ANNUAL PCP TEAM CHRONIC DISEASE VISIT [facility] Start: 04-06-2022 SHINGRIX VACCINE (2 of 3) SHINGRIX VACCINE (2 of 3) [facility] Comment on above: Postponed from 06/24 (Insurance Coverage) Start: 03-07-2022 Hemoglobin A1c/Hemoglobin.total in Blood HBA1C [facility] Start: 01-10-2022 Influenza vaccination INFLUENZA (#1) [facility] Start: 12-04-2021 COLORECTAL CANCER SCREENING COLORECTAL CANCER SCREENING [facility] Start: 12-04-2021 FECAL OCCULT BLOOD FECAL OCCULT BLOO D [facility] Start: 11-29-2021 3 comp foot exam completed DIABETIC FOOT EXAM [facility] Start: 10-27-2021 COVID-19 VACCINE (5 - Booster for Moderna series) COVID-19 VACCINE (5 - Booster for Moderna series) [facility] Start: 07-19-2021 COVID-19 VACCINE (4 - Booster for Moderna series) COVID-19 VACCINE (4 - Booster for Moderna series) [facility] Start: 06-16-2021 Hepatitis C antibody , confirmatory test DILATED RETINAL EXAM [facility] Start: 05-12-2021 ADVANCE DIRECTIVE DISCUSSION ADVANCE DIRECTIVE DISCUSSION [facility] Start: 01-05-2021 Mammography MAMMOGRAM [facility] Start: 06-24-2016 Shingrix Vaccine (2 of 3) Shingrix Vaccine (2 of 3) [facility] Start: 03-03-2014 Colonoscopy COLONOSCOPY [facility] Start: 03-03-2014 Screening for malign ant neoplasm of colon Colonoscopy [facility] Start: 2011 Hepatitis B Vaccine (1 of 3 - Risk 3-dose series) Hepatitis B Vaccine (1 of 3 - Risk 3-dose series) [facility] Start: 2011 RSV Vaccine (1 - 1-d ose 60+ series) RSV Vaccine (1 - 1-dose 60+ series) [facility] Start: 1996 COLOGUARD (FIT-DNA) COLOGUARD (FIT-D NA) [facility] Start: [address] COLONOGRAPHY [facility] Start: 1996 Screening for malign ant neoplasm of colon [facility] Start: 1996 SIGMOIDOSCOPY SIGMOIDOSCOPY [facility] Start: 1969 BP CONTROLLED (<130/80) BP CONTROLLE D (<130/80) [facility] End: 11-15-2024 BD DXA TRABECULAR BONE SCORE (TBS) BD DXA TRABECULAR BONE SCORE (TBS) Radiology Routine Osteopenia, senile 1 Occurrences starting 10/17/2023 until 11/15/2024 [facility] Comment on above: 1 Occurrences starti ng 10/17/2023 until 11/15/2024 End: 05-19-2025 DBT Breast - bilateral screening MINI SCREENING W IDRIS Radiology Routine Encounter for screening mammogram for breast cancer 1 Occurrences starting 04/19/2024 until 05/19/2025 [facility] Comment on above: 1 Occurrences starti ng 04/19/2024 until 05/19/2025 End: 11-15-2024 DXA Skeletal system.axial Views for bone density DXA-AXIAL SKELETON Radiology Routine Osteopenia, senile 1 Occurrences starting 10/17/2023 until 11/15/2024 [facility] Work Phone: Comment on above: 1 Occurrences starti ng 10/17/2023 until 11/15/2024 DXA Skeletal system.axial Views for bone density DXA-AXIAL SKELETON Radiology Routine Osteopenia, senile 10/30/2023 2:08 PM EDT [facility] Work Phone: Hemoglobin.gastroint est inal.lower [Presence] in Stool by Immunoassay FECAL OCCULT BLOOD TEST Lab Routine Screening for colon cancer Ordered: 04/12/2022 [facility] Work Phone: Comment on above: Ordered: 04/12/2022 Hemoglobin.gastroint est inal.lower [Presence] in Stool by Immunoassay FECAL OCCULT BLOOD TEST Lab Routine Screening for colon cancer Ordered: 03/19/2023 [facility] Work Phone: Comment on above: Ordered: 03/19/2023 Hemoglobin.gastroint est inal.lower [Presence] in Stool by Immunoassay IMMUNOCHEMICAL FECAL OCCULT BLOOD TEST Lab Routine Screening for colon cancer Ordered: 10/19/2024 [facility] Work Phone: Comment on above: Ordered: 10/19/2024 End: 04-19-2024 MINI DIAGNOSTIC LEFT MINI DIAGNOSTIC LEFT Radiology Routine Abnormal mammogram of left breast 1 Occurrences starting 03/21/2023 until 04/19/2024 [facility] Work Phone: Comment on above: 1 Occurrences starti ng 03/21/2023 until 04/19/2024 End: 11-13-2023 MINI SCREENING MINI SCREENING Radiology Routine Encounter for screening mammogram for malignant neoplasm of breast 1 Occurrences starting 10/14/2022 until 11/13/2023 [facility] Work Phone: Comment on above: 1 Occurrences starti ng 10/14/2022 until 11/13/2023 MINI SCREENING MINI SCREENING Ra diology Routine Encounter for screening mammogram for malignant neoplasm of breast 03/20/2023 2:32 PM EST [facility] Work Phone: End: 05-19-2025 PAP TITRATION PSG (CPAP, BIPAP, ASV) PAP TITRATION PSG (CPAP, BIPAP, ASV) Procedures Routine WHIT (obstructive sleep apnea) 1 Occurrences starting 04/19/2024 until 05/19/2025 [facility] Comment on above: 1 Occurrences starti ng 04/19/2024 until 05/19/2025 Screening mammograph y bi 2-view breast inc cad MINI SCREENING Radiology Routine Encounter for screening mammogram for breast cancer 10/23/2021 2:23 PM EDT [facility] Work Phone: End: 04-19-2024 US BREAST LTD LEFT US BREAST LTD LEFT Radiology Routine Abnormal mammogram of left breast 1 Occurrences starting 03/21/2023 until 04/19/2024 [facility] Work Phone: Comment on above: 1 Occurrences starti ng 03/21/2023 until 04/19/2024 End: 11-29-2022 XR HAND GENERAL 3V PA/LAT/OBL LEFT XR HAND GENERAL 3V PA/LAT/OBL LEFT Radiology Routine Left hand pain 1 Occurrences starting 10/30/2021 until 11/29/2022 [facility] Work Phone: Comment on above: 1 Occurrences starti ng 10/30/2021 until 11/29/2022 End: 11-15-2023 XR HIP GENERAL 3V PELV/AP/LAT RIGHT XR HIP GENERAL 3V PELV/AP/LAT RIGHT Radiology Routine Pain in right hip 1 Occurrences starting 10/16/2022 until 11/15/2023 [facility] Work Phone: Comment on above: 1 Occurrences starti ng 10/16/2022 until 11/15/2023 End: 11-29-2022 XR SHOULDER GENERAL 3V OR MORE AP/TRUE AP/OTHER LEFT XR SHOULDER GENERAL 3V OR MORE AP/TRUE AP/OTHER LEFT Radiology Routine Bilateral shoulder pain, unspecified chronicity 1 Occurrences starting 10/30/2021 until 11/29/2022 [facility] Work Phone: Comment on above: 1 Occurrences starti ng 10/30/2021 until 11/29/2022 End: 11-29-2022 XR SHOULDER GENERAL 3V OR MORE AP/TRUE AP/OTHER RIGHT XR SHOULDER GENERAL 3V OR MORE AP/TRUE AP/OTHER RIGHT Radiology Routine Bilateral shoulder pain, unspecified chronicity 1 Occurrences starting 10/30/2021 until 11/29/2022 [facility] Work Phone: Comment on above: 1 Occurrences starti ng 10/30/2021 until 11/29/2022 [facility] Immunizations Immunization Date Immunization Notes Care Provider Min shin 10-19-2024 COVID-19 vaccine, ag e 12+ yr (PFIZER-BIONTECH COMIRNATY) Luis M Johnson MD Work Phone: [facility] 02-16-2024 COVID-19 vaccine, ag e 12+ yr (PFIZER-BIONTECH COMIRNATY) Luis M Johnson MD Work Phone: [facility] 02-16-2024 influenza, high dose seasonal, preservative-free Luis M Johnson MD Work Phone: [facility] 02-16-2024 influenza virus vacc ine, unspecified formulation Luis M Johnson MD Work Phone: [facility] 10-17-2023 COVID-19 vaccine, ag e 12+ yr, season (PFIZER-BIONTECH) Luis M Johnson MD Work Phone: [facility] 04-15-2023 COVID-19 vaccine, ag e 12+ yr, season (PFIZER-BIONTECH) Teddy Cox APRN.[facility] Work Phone: [facility] 02-11-2023 influenza (HD-IIV4) vaccine, age 65+ yr, high dose, quadrivalent, PF (FLUZONE HIGH-DOSE) Screen Wstr [facility] 02-11-2023 influenza, high dose seasonal, preservative-free Stormy Hamilton PA-C Work Phone: [facility] Work Phone: 02-11-2023 influenza virus vacc ine, unspecified formulation Summer Telles PA-C Work Phone: [facility] 02-05-2022 influenza, high dose seasonal, preservative-free Luis M Johnson MD Work Phone: [facility] Work Phone: 02-05-2022 influenza virus vacc ine, unspecified formulation Luis M Johnson MD Work Phone: [facility] 03-21-2021 COVID-19 vaccine, fu ll dose (MODERNA) Luis M Johnson MD Work Phone: [facility] 03-21-2021 influenza, high dose seasonal, preservative-free Luis M Johnson MD Work Phone: [facility] 08-10-2020 COVID-19 vaccine, fu ll dose (MODERNA) Luis M Johnson MD Work Phone: [facility] 07-14-2020 COVID-19 vaccine, fu ll dose (MODERNA) Luis M Johnson MD Work Phone: [facility] Work Phone: 03-17-2019 influenza, high dose seasonal, preservative-free Luis M Johnson MD Work Phone: [facility] 01-26-2018 influenza, high dose seasonal, preservative-free Luis M Johnson MD Work Phone: [facility] 03-15-2017 influenza, high dose seasonal, preservative-free uLis M Johnson MD Work Phone: [facility] 02-05-2017 pneumococcal polysaccharide vaccine, 23 valent Luis M Johnson MD Work Phone: [facility] 10-02-2016 pneumococcal conjuga te vaccine, 13 valent Luis M Johnson MD Work Phone: [facility] 04-29-2016 zoster vaccine, live Luis M Johnson MD Work Phone: [facility] Work Phone: 01-30-2016 influenza, injectabl e, quadrivalent, contains preservative Luis M Johnson MD Work Phone: [facility] 01-30-2016 tetanus toxoid, redu kailee diphtheria toxoid, and acellular pertussis vaccine, adsorbed Luis M Johnson MD Work Phone: [facility] Work Phone: 03-29-2015 influenza, seasonal, injectable Luis M Johnson MD Work Phone: [facility] 04-06-2014 influenza, seasonal, injectable Luis M Johnson MD Work Phone: [facility] 02-09-2013 influenza virus vacc ine, unspecified formulation Luis M Johnson MD Work Phone: [facility] 02-25-2012 influenza virus vacc ine, unspecified formulation Luis M Johnson MD Work Phone: [facility] 03-05-2011 influenza virus vacc ine, unspecified formulation Luis M Johnson MD Work Phone: [facility] 09-04-2009 tuberculin skin test ; purified protein derivative solution, intradermal Luis M Johnson MD Work Phone: [facility] 08-28-2009 tuberculin skin test ; purified protein derivative solution, intradermal Luis M Johnson MD Work Phone: [facility] 03-21-2008 influenza virus vacc ine, unspecified formulation Luis M Johnson MD Work Phone: [facility] Work Phone: 03-21-2008 pneumococcal polysaccharide vaccine, 23 valent Luis M Johnson MD Work Phone: [facility] Work Phone: 03-13-2006 influenza virus vacc ine, unspecified formulation Luis M Johnson MD Work Phone: [facility] Work Phone: 10-04-2005 tuberculin skin test ; purified protein derivative solution, intradermal Luis M Johnson MD Work Phone: [facility] 09-26-2005 tetanus and diphther ia toxoids, adsorbed, preservative free, for adult use (2 Lf of tetanus toxoid and 2 Lf of diphtheria toxoid) Luis M Johnson MD Work Phone: [facility] 09-26-2005 tuberculin skin test ; purified protein derivative solution, intradermal Luis M Johnson MD Work Phone: [facility] Payers Date Payer Category Payer Self-pay [id number] 2024 Medicare [id number] 2019 Medicare AETNA MEDICARE A ETNA MEDICARE HMO [id number] 2019-Present [phone] [address] [place] [address] O [id number] 2019 Medicare AETNA MEDICARE A ETNA MEDICARE HMO [id number] 2019-Present [phone] [address] [place] [address] HMO [id number] 2019 Medicare (Managed Care) [id number]. [id number] 2019 Private Health Insurance [id number] 2015 Unknown [id number] 2002 Unknown [id number] Private Health Insurance [id number] Unknown [id number] 62 Unknown [id number] 62 Unknown [id number] 62 Unknown [id number] Social History Date Type Detail Facility [facility] Start: 1950 Sex Assigned At Female A [facility] Start: 05-18-2018 End: 07-03-2024 Tobacco smoking status NHIS Ex-smoker [facility] Start: 10-11-1982 End: 10-11-2012 History of tobacco use Current smoker [facility] Start: 10-11-1982 End: 10-11-2012 History of tobacco use Cigarette Smoker [facility] Start: 05-18-2018 End: 10-14-2022 Cigarettes smoked current (pack per day) - Reported 0.5 [facility] Start: 05-18-2018 End: 07-03-2024 Tobacco use and exposure Smokeless tobacco non-user [facility] Start: 04-06-2021 End: 10-19-2024 Alcohol intake Current non-drinker of alcohol (finding) [facility] Start: 03-24-2020 End: 06-10-2022 History SDOH Alcohol Frequency 1 [facility] Start: 03-24-2020 History SDOH Alcohol Std Drinks 98 [facility] Start: 11-20-2019 End: 07-25-2020 History SDOH Social Connections Phone 2 [facility] Start: 11-20-2019 End: 06-10-2022 History SDOH Social Connections Living 4 [facility] Start: 11-20-2019 End: 06-10-2022 History SDOH Physical Activity DPW 0 [facility] Start: 11-20-2019 History SDOH Financial 5 [facility] Start: 11-20-2019 Education 16 [facility] Start: 1950 Sex Assigned At Not on file C [facility] Start: 08-26-2021 End: 04-12-2022 Exposure to SARS-CoV-2 (event) Not sure [facility] Start: 04-06-2021 End: 04-06-2021 Tobacco smoking status NHIS Unknown if ever smoked [facility] Work Phone: Start: 06-03-2013 None [facility] Start: 06-03-2013 Alone [facility] Start: 06-03-2013 Non-smoker [facility] Start: 06-10-2022 History SDOH Social Connections Phone 3 [facility] Start: 06-10-2022 End: 10-14-2022 Social connection and isolation panel [facility] Start: 04-12-2012 Active Member of [facility] bs or Organizations Not on file [facility] Are you now , , , , never or living with a partner? [facility] How often to you hav e a drink containing alcohol? Never [facility] Do you feel stress - tense, restless, nervous, or anxious, or unable to sleep at night because your mind is troubled all the time - these days [OSQ] Only a little [facility] (I/We) worried wheth er (my/our) food would run out before (I/we) got money to buy more. Never true [facility] Has the [employer], oil, or water company threatened to shut off services in your home in past 12Mo No [facility] Do you feel stress - tense, restless, nervous, or anxious, or unable to sleep at night because your mind is troubled all the time - these days [OSQ] Not at all [facility] How hard is it for y ou to pay for the very basics like food, housing, medical care, and heating Not very hard [facility] Medical Equipment Procedure Code Equipment Code Equipment Original Text Equipment Identifier Dates Jesús Bn Smpx P Radpq Fd Strl - [id number] Start: 05-31-2013 Comment on above: Description: Simplex P Bone Cement Full Dose Ins Tib 4 11mm K n X3 Ps Trthln - [id number] Start: 05-31-2013 Comment on above: Description: [employer] X3 Tibial Bearing Insert PS, 4, 11mm Comp Fem 4 Rt Kn Jesús Ps Trthln - [id number] Start: 05-31-2013 Comment on above: Description: [place] [employer] Posterior Stabilized Femoral, #4, PS, RT Ins Tib 4 Thk9mm 9mm Kn X3 - [id number] Start: 05-31-2013 Comment on above: Description: TIBIAL BEARING INSERT - PS Comp Pat 10mm 32mm Asym Trthln - [id number] Start: 05-31-2013 Comment on above: Description: [place] [employer] X3 Asymmetric Patella, A32, 10mm Comp Pat 10mm 32mm Asym Trthln - [id number] Start: 05-31-2013 Comment on above: Description: asymmet yolanda patella Comp Fem 4 Lt Kn Ps Jesús Trthln - [id number] Start: 05-31-2013 Comment on above: Description: POSTERI OR STABILIZED FEMORAL Baseplt Tib Trthln 4 Prim - [id number] Start: 05-31-2013 Comment on above: Description: [employer] Primary Tibial Baseplate Baseplt Tib Trthln 4 Prim - [id number] Start: 05-31-2013 Comment on above: Description: primary tibial baseplate [id number], [id number], [id number], [id number] Start: 10-10-2021 End: 10-26-2024 Comment on above: Test blood sugar(s) 2 times daily. Dx: Other DM Code E11.29 Insulin: No A1c 7.5% 09/05/2021 Test blood sugar(s) 2 times daily. Dx: Other DM Code 11.29 Insulin: No, A1c 7.5% 09/05/2021 Functional Status Date Assessment Result Facility 10-24-2014 Are you deaf, or do you have serious difficulty hearing No 10/24/2014 1:29 PM GHADAT Hansel Echeverria APRN.ELOISA No [facility] Work Phone: 10-24-2014 Are you blind, or do you have serious difficulty seeing, even when wearing glasses No 10/24/2014 1:29 PM GHADAT Hansel Echeverria APRN.CQ DEVELOPER No [facility] 10-24-2014 Do you have serious difficulty walking or climbing stairs No 10/24/2014 1:29 PM EDT Hansel Ecehverria APRN.CQ DEVELOPER No [facility] 10-24-2014 Do you have difficul ty dressing or bathing No 10/24/2014 1:29 PM EDT Hansel Echeverria APRN.CQ DEVELOPER No [facility] 10-24-2014 Because of a physica l, mental, or emotional condition, do you have difficulty doing errands alone such as visiting a physician's office or shopping No 10/24/2014 1:29 PM EDT Hansel Echeverria APRN.CQ DEVELOPER No [facility] Mental Status Date Assessment Result Facility 10-24-2014 Because of a physica l, mental, or emotional condition, do you have serious difficulty concentrating, remembering, or making decisions No 10/24/2014 1:29 PM EDT Hansel Echeverria, LENKA.CQ DEVELOPER No [facility] Clinical Notes 03-01-2015 to 01-18-2025 Telephone Encounter - Gisselle Zhu MA - 01/18/2025 1:11 PM EDTTelephone Encounter - Gisselle Zhu MA - 01/18/2025 1:11 PM EDTTelephone Encounter - Luis M Johnson MD - 01/18/2025 11:55 AM EDT Note Date & Type Note Facility 01-18-2025 Telephone encount er Note Call to pt and notified her of message below from Provider, she verbalized understanding. Gisselle Zhu MA [facility] 01-18-2025 Miscellaneous Notes Formattin g of this note might be different from the original. Call to pt and notified her of message below from Provider, she verbalized understanding. Gisselle Zhu MA Advise patient to discuss this request with her pain provider on 01/19/2025. See message below. Generally these are not covered, but please advise. Gisselle Zhu MA Patient called asking Dr Johnson to call her in (name brand Lidoderm) Lidocane patches for her fibromyalgia. Patient declined to schedule apt but said she has apt with a pain doctor 01/19 at [facility] Please advise documented in this encounter [facility] 01-18-2025 Telephone encount er Note Advise patient to discuss this request with her pain provider on 01/19/2025. [facility] 01-18-2025 Telephone encount er Note See message below. Generally these are not covered, but please advise. Gisselle Zhu MA [facility] 01-18-2025 Telephone encount er Note Patient called asking Dr Johnson to call her in (name brand Lidoderm) Lidocane patches for her fibromyalgia. Patient declined to schedule apt but said she has apt with a pain doctor 01/19 at [facility] Please advise [facility] Work Phone: 12-07-2024 Telephone encount er Note Letter has been mailed to Field Trainer at address below given by patient. Copy made of letter and mailed to pt's address on file. Note in letter that this has been completed as requested. Gisselle Zhu MA [facility] 12-07-2024 Miscellaneous Notes Formattin g of this note might be different from the original. Letter has been mailed to Field Trainer at address below given by patient. Copy made of letter and mailed to pt's address on file. Note in letter that this has been completed as requested. Gisselle Zhu MA New letter printed with corrected error. Ready to be sent. Waiting for new letter from PCP, will then send out to Field Trainer. Okay per PCP. Gisselle Zhu MA Spoke to pt. Pt would like the following: Letter mailed to Post Master as below. A copy of letter mailed to pt. Uzma Eldridge LPN Called and left message on patients voicemail to return call to the office and ask to speak with a FM triage nurse. When pt returns call, please ask if she want to vegetable picker or have mailed to her? In PCP's office, top tray on desk. Gisselle Zhu MA Let patient know letter is ready for her to vegetable picker and mail to the Field Trainer. Please see request below. Sandy Pizano LPN Beverly is calling Luis M Johnson MD today with concern regarding letter for post office. Patient is asking for a letter to be sent to her post office so her mail can be dropped off at her house. Patient has a hard time getting to the mailbox. Please send letter to: [address] [address] Patient has been identified by name and birthdate. Duration of symptoms: N/A Person calling: self Call patient at: on cell [phone] (home) [phone] (cell) Was an appointment scheduled: No Closing statement: Results or non-symptom based questions: Thank you for calling [facility], your call will be returned within the next business day. Alicia Diaz documented in this encounter [facility] 12-06-2024 Telephone encount er Note New letter printed with corrected error. Ready to be sent. [facility] 12-06-2024 Telephone encount er Note Waiting for new letter from PCP, will then send out to Field Trainer. Okay per PCP. Gisselle Zhu MA [facility] 12-06-2024 Telephone encount er Note Spoke to pt. Pt would like the following: Letter mailed to Post Master as below. A copy of letter mailed to pt. Uzma Eldridge LPN [facility] 12-06-2024 Telephone encount er Note Called and left message on patients voicemail to return call to the office and ask to speak with a FM triage nurse. When pt returns call, please ask if she want to vegetable picker or have mailed to her? In PCP's office, top tray on desk. Gisselle Zhu MA [facility] 12-06-2024 Telephone encount er Note Let patient know letter is ready for her to vegetable picker and mail to the Field Trainer. [facility] 12-02-2024 Telephone encount er Note Please see request below. Sandy Pizano LPN [facility] 12-02-2024 Telephone encount er Note Beverly is calling Luis M Johnson MD today with concern regarding letter for post office. Patient is asking for a letter to be sent to her post office so her mail can be dropped off at her house. Patient has a hard time getting to the mailbox. Please send letter to: [address] [address] Patient has been identified by name and birthdate. Duration of symptoms: N/A Person calling: self Call patient at: on cell [phone] (home) [phone] (cell) Was an appointment scheduled: No Closing statement: Results or non-symptom based questions: Thank you for calling [facility], your call will be returned within the next business day. 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 [facility]06-17-2025 Miscellaneous Notes* Telephone Encounter - Luis [...] and UA were ok. [facility] Telephone encounter Note * Telephone Encounter [...] 09/05/2021 Authorizing Provider: LUIS M JOHNSON MD [facility]06-17-2025 Miscellaneous Notes* Telephone Encounter - Luis [...] 26, 2024 12:11 PM documented [facility] Telephone encounter Note * Telephone Encounter [...] Almanza MA October 26, 2024 3:34 PM [facility]06-17-2025 Telephone encounter Note* Telephone Encounter - [...] Jayda Quiles October 26, 2024 12:11 PM [facility] Work Phone: 1(614) 104-4040546090-00-1949 Instructions* Patient Instructions* Luis M Johnson MD - 10/19/2024 1:56 PM EDT Consider getting the shingrix vaccine for the prevention of shingles from a local pharmacy and the RSV vaccine. Please bring in copies of your power of weight control engineer for health care and living will. Please get your diabetic eye exam set up for 2024. We discussed the mole on your face and moles on your back: - The mole on your face appears to be a seborrheic keratosis, but since it has started to pigment and change, I am referring you to a plastic surgeon at [facility] for further evaluation and possible removal. They [...] fibromyalgia and hip pain: - Continue taking ubai-cxd-adbpryj magnesium and Tylenol as needed for pain [...] your living will and healthcare power of weight control engineer documents during your next visit. We discussed [...] Advance Directive Discussion due on 05/12/2024 Covid-19 Vaccine() due on 08/16/2024 HbA1C due on 10/18/2024 [...] review all the medicines you take, even guqs-wse-bxijldd medicines. As you get older, the way [...] have certain medical conditions. [facility] History of Present illness Narrative* Luis [...] PCP - General (Family Medicine) Teddy Cox APRN.CQ DEVELOPER as Outsole Caser (Family Medicine) Summer Telles PA-C as Outsole Caser (Family Medicine) optho Medical/Family history review Reviewed [...] 121 Resp 18 Ht 170.2 cm (5' 7) Wt 130.2 kg (287 lb) SpO2 97% [...] a while. She has not seen a naval surface fire support planner and started using Vitality Oils on her face, which she believes may havecoincided with the changes in the mole's appearance. She reports weight gain and acknowledges a lack of exercise, despite owning a recumbent exercise bike. Her diet includes quinoa and eggs as primary protein sources, and she admits to overeating fruits and vegetables, considering them free foods. She also mentions cravings for potatoes [...] has a living will and power of weight control engineer for healthcare. She has not had an [...] PHYSICIAN: David Wolfe MD PSG done @ [facility] AHI 11. Complete report has been scanned into [employer]. Neurology procedures. Osteopenia 06/07/2008 Osteopenia, senile 06/07/2008 [...] 121 Resp 18 Ht 170.2 cm (5' 7) Wt 130.2 kg (287 lb) SpO2 97% [...] Plan 1. Medicare annual wellness visit, subsequent (Z00.00) Comprehensive evaluation performed. - Scheduled follow-up in 6 months. 2. Type 2 diabetes mellitus with diabetic microalbuminuria, unspecified whether fci insulin use (HCC) (E11.29) Patient is on [...] has a living will and power of weight control engineer for health care. - Advised patient to [...] keratosis. - Referred to plastic surgery at [facility] for evaluation and potential removal. Requested [...] which included preparing to see the patient, iggi-sl-bnbp patient care, completing clinical documentation, performing a medically appropriate examination, counseling and educating the patient/family/caregiver and ordering medications, tests, or procedures. Recording using Canv[employer] software for draft documentation of the visit was discussed with the patient/authorized automobile rental representative; all questions welcomed and answered. Patient/authorized automobile rental representative agreed to proceed documented in this encounterHenry [facility]06-[facility]25 NoteHNO ID: [id number] Author: LUIS M JOHNSON MD Service: ? [...] General (Family Medicine) Teddy Cox APRN.ELOISA as Outsole Caser (Family Medicine) Summer Telles PA-C as Outsole Caser (Family Medicine) optho Medical/Family history review Reviewed [...] 121 Resp 18 Ht 170.2 cm (5' 7) Wt 130.2 kg (287 lb) SpO2 97% [...] a while. 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 She reports weight gain and acknowledges a lack of exercise, despite owning a recumbent exercise bike. Her diet includes quinoa and eggs as primary protein sources, and she admits to overeating fruits and vegetables, considering them free foods. She also mentions cravings for potatoes [...] Sjogren's syndrome. She has (more content not included)...[facility]05-09-2025 NoteHNO ID: [id number] Author: NATHALIE LACY RN Service: ? Author [...] Nathalie Lacy RN September 17, 2024 11:43 [facility]05-09-2025 History of Present illness Narrative* Nathalie Lacy RN - 09/17/2024 11:43 AM EDT CDM ENROLLMENT Provider Action / FYI: Declines [...] 17, 2024 11:43 AM documented in this encounterHenry [facility]05-[facility] NotePatient Outreach ([facility]) BEVERLY GIVENS ([id number]) 1950 F NFR Date Time Provider Department 09/17/24 NATHALIE LACY During your visit today, we recorded the [...] Reviewed: 07/03/2024 Reviewed by: Luis M Baez APRN.CQ DEVELOPER - Fully Assessed Prescriptions as of 09/17/2024 [...] *04/02/2016 Generalized osteoarthrosis, uns (more content not included)...[facility]03-27-2025 NoteHNO ID: [id number] Author: BRISEIDA IVY MA Service: ? 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 Requested Prescriptions Signed Prescriptions Disp Refills cyclobenzaprine (FLEXERIL) 10 mg tablet 60 tablet 2 Sig: Take 1 tablet by mouth two times a day as needed. Authorizing Provider: LUIS M JOHNSON MD [facility]03-20-2025 Miscellaneous Notes* Telephone Encounter - Luis [...] 29, 2024 10:45 AM documented in this encounterHenry [facility] Hospital03-[facility]25 Telephone encounter Note * Telephone Encounter [...] Jing Lopez July 29, 2024 10:45 AM [facility]02-22-2025 History of Present illness Narrative* Zackary [...] PATIENT PRESENTS WITH AN IMPLANTABLE OR ATTACHED ACADEMIC AFFAIRS SPECIALIST: No RADIOLOGY DEPARTMENT: General X-ray: Exam(s) Completed: Chest X-Ray PERIPHERAL IV DATA: Not applicable SIGNED BY: CHANDRA Chin) July 03, 2024 11:11 AM documented in this encounterHenry County Hospital02-22-2025 NoteHNO ID: [id number] Author: ZACKARY PHAM RT(R) Service: Radiology Author Type: Technologist [...] PATIENT PRESENTS WITH AN IMPLANTABLE OR ATTACHED ACADEMIC AFFAIRS SPECIALIST: No RADIOLOGY DEPARTMENT: General X-ray: Exam(s) Completed: Chest X-Ray PERIPHERAL IV DATA: Not applicable SIGNED BY: RT Elsy(R) July 03, 2024 11:11 [facility]02-22-2025 NoteHNO ID: [id number] Author: LUIS M BAEZ APRN.CQ DEVELOPER Service: ? Author Type: Nurse Practitioner Type: [...] PHYSICIAN: David Wolfe MD PSG done @ [facility] AHI 11. Complete report has been scanned into [employer]. Neurology procedures. Osteopenia 06/07/2008 Osteopenia, senile 06/07/2008 [...] mouth after use. [place] (more content not included)...[facility]02-22-2025 History of Present illness Narrative* Luis M Baez, LENKA.[facility] - 07/03/2024 11:14 AM EST Subjective HPI [...] PHYSICIAN: David Wolfe MD PSG done @ [facility] AHI 11. Complete report has been scanned into [employer]. Neurology procedures. Osteopenia 06/07/2008 Osteopenia, senile 06/07/2008 [...] of care. This note was generated using Spout software. It may contain errors in wording, punctuation, or spelling. Luis M Baez APRN.ELOISA documented in this encounterHenry County Hospital02-20-2025 NoteHNO ID: [id number] Author: BRISEIDA IVY MA Service: ? Author Type: [employer] Type: Progress Notes Filed: 07/01/2024 12:29 Note Text: POPULATION HEALTH NAVIGATION OUTREACH Action/FYI P/C to address open care gaps,no answer. Left message for patient to return call. My chart message sent. Reason for Outreach Care Gap/HCC or Scheduling Wellness Visits Care Gaps due: Follow-up Appointment Breast Cancer Screening Colorectal Cancer Screening Patient Contacted: Unable or unnecessary to reach patient: Left message [email or web address] message sent Navigation Signature: Briseida Ivy MA July 01, 2024 12:29 [facility]02-20-2025 History of Present illness Narrative* Briseida Ivy [...] or unnecessary to reach patient: Left message Thinkspeed message sent Navigation Signature: Briseida Ivy MA July 01, 2024 12:29 PM documented in this encounterHenry County Hospital02-20-2025 NotePatient Outreach (NETNAV) BEVERLY GIVENS ([id number]) 1950 F NFR Date Time Provider Department [...] or unnecessary to reach patient: Left message Avidiahart message sent Navigation Signature: Briseida Ivy MA [...] Visit: Population Health Navigation Outreach [3910] Cmt: [employer] High Risk- Attempt 1 Prescriptions as of [...] disease without esopha (more content not included)... [facility]12-13-2024 Telephone encounter Note* Telephone Encounter - Luis [...] meals. Authorizing Provider: LUIS M JOHNSON MD [facility]12-13-2024 Miscellaneous Notes* Telephone Encounter - Luis [...] 2024 3:07 PM * Telephone Encounter - Emily Alicia - 04/23/2024 2:53 PM EST Prescription Refill [...] 23, 2024 2:55 PM documented in this encounterHenry County Hospital12-13-2024 Telephone encounter Note * Telephone Encounter [...] Castillo MA April 23, 2024 3:07 PM [facility]12-13-2024 Telephone encounter Note* Telephone Encounter - Alicia Diaz - 04/23/2024 [...] Alicia Diaz April 23, 2024 2:55 PM [facility]12-10-2024 Miscellaneous Notes* Telephone Encounter - Nereyda Sullivan MA - 04/20/2024 8:49 AM EST Pt notified and verbalized understanding Nereyda Sullivan MA * Telephone Encounter - Teddy Cox APRN.CNP - 04/20/2024 7:57 AM EST Please let patient know her hgba1c has improved and her lipids are stable. documented in this encounterHenry County Hospital12-10-2024 Telephone encounter Note * Telephone Encounter - Nereyda Sullivan MA - 04/20/2024 8:49 AM EST Pt notified and verbalized understanding Nereyda Sullivan MA [facility]12-10-2024 Telephone encounter Note* Telephone Encounter - Teddy Cox APRN.CNP - 04/20/2024 7:57 AM EST Please let patient know her hgba1c has improved and her lipids are stable. [facility]12-09-2024 NoteHNO ID: [id number] Author: TEDDY COX APRN.CNP Service: ? Author Type: Nurse [...] PHYSICIAN: David Wolfe MD PSG done @ [facility] AHI 11. Complete report has been scanned into [employer]. Neurology procedures. Osteopenia 06/07/2008 Osteopenia, senile 06/07/2008 [...] mg tablet take (more content not included)... [facility]12-09-2024 History of Present illness Narrative* Teddy Cox, LENKA.CQ DEVELOPER - 04/19/2024 1:04 PM EST Images from [...] PHYSICIAN: David Wolfe MD PSG done @ [facility] AHI 11. Complete report has been scanned into [employer]. Neurology procedures. Osteopenia 06/07/2008 Osteopenia, senile 06/07/2008 [...] diabetes mellitus with diabetic microalbuminuria, unspecified whether fci insulin use (HCC) - ICD9: 250.40, 791.0, [...] see if that improves it. Teddy Cox APRN.CQ DEVELOPER documented in this encounterHenry County Hospital10-07-2024 Telephone encounter Note * Telephone Encounter - Katlyn Almanza MA - 02/16/2024 1:43 PM EDT HM updated. Katlyn Almanza MA [facility]10-07-2024 Miscellaneous Notes* Telephone Encounter - Katlyn Almanza MA - 02/16/2024 1:43 PM EDT HM updated. Katlyn Almanza MA * Telephone Encounter - Usha Leos - 02/16/2024 1:34 PM EDT Patient called to advise pcp office that she got her COVID and flu vaccines today at [facility] in [place]. She would like it updated in her chart. documented in this encounterHenry County Hospital10-07-2024 Telephone encounter Note * Telephone Encounter - Usha Leos - 02/16/2024 1:34 PM EDT Patient called to advise pcp office that she got her COVID and flu vaccines today at [facility] in [place]. She would like it updated in her chart. [facility]09-16-2024 Telephone encounter Note* Telephone Encounter - [...] Dot Quiles January 26, 2024 2:21 PM [facility]09-16-2024 Miscellaneous Notes* Telephone Encounter - Dot [...] 26, 2024 2:21 PM documented in this encounterHenry County Hospital07-01-2024 Telephone encounter Note * Telephone Encounter - Sandy Pizano LPN - 11/10/2023 2:35 PM EDT Pt notified of same. Pt advises that she has not started taking the Januvia yet. It was more expensive than she realized at the time that she went to get it but advises that she will be picking it upsoon and starting it. Sandy Pizano LPN [facility]07-01-2024 Miscellaneous Notes* Telephone Encounter - Sandy Pizano LPN - 11/10/2023 2:35 PM EDT Pt notified of same. Pt advises that she has not started taking the Januvia yet. It was more expensive than she realized at the time that she went to get it but advises that she will be picking it upsoon and starting it. Sandy Pizano LPN * Telephone Encounter - Summer Telles PA-C - 11/10/2023 2:23 PM EDT Vit d level is normal. documented in this encounterHenry County Hospital07-01-2024 Telephone encounter Note * Telephone Encounter - Summer Telles PA-C - 11/10/2023 2:23 PM EDT Vit d level is normal. [facility] Work Phone: [phone]) 504-905906-28-2024 History of Present illness Narrative* Sandy Pizano LPN - 11/07/2023 8:55 AM EDT Scan on 11/07/2023 8:29 AM by ProviderRebeca PA-C: Consultation - Ophthalmology documented in this encounterHenry County Hospital06-26-2024 Telephone encounter Note * Telephone Encounter - Katlyn Almanza MA - 11/05/2023 8:32 AM EDT Patient notified via other phone encounter regarding the bone density results. Katlyn Almanza MA [facility]06-26-2024 Miscellaneous Notes* Telephone Encounter - Katlyn [...] is to see endocrine. documented in this encounterHenry County Hospital06-26-2024 Telephone encounter Note * Telephone Encounter - Katlyn Alamnza MA - 11/05/2023 8:31 AM EDT Left detailed message for patient with results. Katlyn Almanza MA [facility]06-26-2024 Miscellaneous Notes* Telephone Encounter - Katlyn Almanza MA - 11/05/2023 8:31 AM EDT Left detailed message for patient with results. Katlyn Almanza MA * Telephone Encounter - Luis M Johnson MD - 11/04/2023 10:39 PM EDT Let patient know bone strength study was normal. documented in this encounterHenry County Hospital06-26-2024 Telephone encounter Note * Telephone Encounter - Katlyn Almanza MA - 11/05/2023 8:20 AM EDT Patient notified and voiced understanding. She will not be able to get the lab done for 2-3 days. Patient was inquiring about her Bone Density results. Katlyn Almanza MA [facility]06-25-2024 Telephone encounter Note* Telephone Encounter - Luis M Johnson MD - 11/04/2023 10:39 PM EDT Let patient know bone strength study was normal. [facility]06-25-2024 Telephone encounter Note* Telephone Encounter - Luis M Johnson MD - 11/04/2023 9:26 PM EDT Let patient know her parathyroid level was ok but her calcium is still high. I have placed an orderto check her Vit D. If normal the next step is to see endocrine. [facility]06-20[facility]20[facility] History of Present illness Narrative* Lorenzo Walker, RT(R) - 10/30/2023 2:15 PM EDT Radiology [...] PATIENT PRESENTS WITH AN IMPLANTABLE OR ATTACHED ACADEMIC AFFAIRS SPECIALIST: No RADIOLOGY DEPARTMENT: Bone Density PERIPHERAL IV DATA: Not applicable SIGNED BY: RT Scooter(R) October 30, 2023 1:45 PM documented in this encounterHenry County Hospital06-13-2024 Telephone encounter Note * Telephone Encounter [...] stomach Authorizing Provider: LUIS M JOHNSON MD [facility]06-13-2024 Miscellaneous Notes* Telephone Encounter - Luis [...] breakfast on an empty stomach Dot Martinez [facility] October 23, 2023 12:59 PM documented in this encounterHenry County Hospital06-13-2024 Telephone encounter Note * Telephone Encounter [...] breakfast on an empty stomach Dot Martinez [facility] October 23, 2023 12:59 PM [facility]06-11-2024 Telephone encounter Note* Telephone Encounter - Katlyn Almanza MA - 10/21/2023 2:46 PM EDT Patient notified and voiced understanding. Kaltyn Almanza MA [facility]06-11-2024 Miscellaneous Notes* Telephone Encounter - Katlyn [...] is ok with starting the medication. [facility] in [place] is pharmacy. Patient is asking if she [...] studies were all ok. documented in this encounterHenry County Hospital06-11-2024 Telephone encounter Note * Telephone Encounter [...] daily. Authorizing Provider: LUIS M JOHNSON MD [facility]06-11-2024 Telephone encounter Note* Telephone Encounter - Katlyn Almanza MA - 10/21/2023 11:39 AM EDT Patient notified and voiced understanding. Patient is ok with starting the medication. [facility] in [place] is pharmacy. Patient is asking if she can wait until the do complete the calcium blood work as she has a bone density test that day as well. I told patient he may not want her to wait that long. Katlyn Almanza MA [facility]06-10-2024 Telephone encounter Note* Telephone Encounter - Katlyn Almanza MA - 10/20/2023 1:11 PM EDT Left message for patient to contact office. Katlyn Almanza MA [facility]06-10-2024 Telephone encounter Note* Telephone Encounter - [...] labs and urine studies were all ok. [facility]06-07-2024 Instructions* Patient Instructions* Luis M Johnson [...] review all the medicines you take, even jxlp-oqs-zbbvxvk medicines. As you get older, the way [...] have certain medical conditions. documented in this encounterHenry County Hospital06-07-2024 History of Present illness Narrative* Luis [...] MD as PCP - General (Family Medicine) Optho Medical/Family history review Reviewed and updated problem [...] 124/82 Pulse 102 Resp 18 Ht 5' 6.5 (1.69m) Wt 294 lb (133.4kg) BMI 46.75 [...] PHYSICIAN: David Wolfe MD PSG done @ [facility] AHI 11. Complete report has been scanned into [employer]. Neurology procedures. Osteopenia 06/07/2008 Recurrent major depression [...] 102 Resp 18 Ht 168.9 cm (5' 6.5) Wt 133.4 kg (294 lb) BMI 46.74 [...] BMI 46.74 kg/(m^2) - Patient was counseled hetc-zz-ralr by myself (the billing provider) for the following immunizations and vaccine components, including side effects: COVID- 19. Patient consents for immunization and understands risks and benefits. A VIS sheet on each immunization was given to the patient. - Follow up for annual exam in one year - advised on Shingrix and RSV vaccines. 2. Type 2 diabetes mellitus with diabetic microalbuminuria, unspecified whether fci insulin use (HCC) - ICD9: 250.40, 791.0, [...] immunization - ICD9: V03.89, ICD10: Z23 - [employer] COVID-19 VACCINE (2022- SEASON) AGE 12+ YR: [...] which included preparing to see the patient, vxzh-ix-jqew patient care, completing clinical documentation, performing a medically appropriate examination, counseling and educating the patient/family/caregiver and ordering medications, tests, or procedures. Luis M Johnson MD Behavioral Health Screening PHQ-9 Score: 2 (Minimal Depression) ASHELY-2 Score: 0 (Lower risk for anxiety) Recommendation: continuing current treatment plan documented in this encounterHenry County Hospital03-21-2024 Miscellaneous Notes* Telephone Encounter - Luis [...] 07/31/2023 11:08 AM EDT Pharmacy verified in [facility] Patient has been identified by name and [...] (306 lb) Not applicable Please advise. Jayda Weiner Pss documented in this encounterHenry County Hospital12-16-2023 Miscellaneous Notes* Telephone Encounter - Luis [...] M JOHNSON MD * Telephone Encounter - Odette Christianson [...] Thank you. Odette Quiles. documented in this encounterHenry County Hospital12-05-2023 Miscellaneous Notes* Telephone Encounter - Geena Haley LPN - 04/15/2023 6:31 PM EST Phoned patient and reviewed results and recommendations with her. Patient voiced understanding. * Telephone Encounter - Teddy Cox APRN.CNP - 04/15/2023 4:43 PM EST Please let patient know her mammogram is negative. Patient should continue with annual screenings. documented in this encounterHenry County Hospital12-05-2023 History of Present illness Narrative* Reshma Kelley RT(R) - 04/15/2023 3:30 PM EST Radiology Service [...] 15, 2023 2:54 PM documented in this encounterHenry County Hospital12-05-2023 History of Present illness Narrative* Teddy Cox APRN.CNP - 04/15/2023 12:53 PM EST Chief Complaint [...] PHYSICIAN: David Wolfe MD PSG done @ [facility] AHI 11. Complete report has been scanned into [employer]. Neurology procedures. Osteopenia 06/07/2008 Recurrent major depression [...] 2 diabetes mellitus with microalbuminuria, unspecified whether traffic 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 (HCC) - ICD9: 250.40, 791.0, [...] immunization - ICD9: V03.89, ICD10: Z23 - [employer] COVID-19 VACCINE (2022- SEASON) AGE 12+ YR [...] --Continue flexeril, mobic and stretching Teddy Cox APRN.ELOISA documented in this encounterHenry County Hospital11-18-2023 Miscellaneous Notes* Telephone Encounter - Nguyen Florez RN - 03/29/2023 11:03 AM EST Pt has appointment 04/15/23. * Telephone Encounter - Gisselle Zhu Ma - 03/21/2023 11:12 AM EST Called and left message on patients voicemail to return call to the office and ask to speak with a triage nurse. Gisselle Zhu Ma * Telephone Encounter - Teddy Cox APRN.CNP - 03/21/2023 10:41 AM EST Please let patient know her mammogram is indeterminate and she needs further follow up. I have ordered additional mammogram and us documented in this encounterHenry County Hospital11-18-2023 Miscellaneous Notes* Telephone Encounter - Nguyen [...] you. Nguyen Florez RN. documented in this encounterHenry County Hospital11-17-2023 History of Present illness Narrative* Jewels Lopez, PT - 03/28/2023 1:36 PM EST Program_ID:[id number] Access Code: [email or web address] URL: [email or web address] Date: 03-28-2023 Prepared By: Jewels Lopez Program [...] of Care: created on 03/28/23 through 05/09/23 [place] in home exercise program. Patient will decrease [...] Normal gait. Reciprocal stair negotiation. Patient Goals: to get that so it doesn't hurt. Planned Interventions, Frequency, and Duration: Current Frequency: 1x/week Duration: 6 weeks Total Number of Visits Planned: 6 Planned Treatment Interventions: Therapeutic exercise (20153), Neuromuscular re- education (62271), Manual therapy (07476), Therapeutic activities (61407), Self- mcc management (73004), Gait Training (52209) Patient demonstrates fair understanding of plan of [...] wants some helpful stretches today. Patient Goals: to get that so it doesn't hurt. Functional Limitations: sitting, walking (intermittent activities) Prior Level of Function: Independent without limitations Relevant History Past Relevant Medical Conditions: Fibromyalgia Past Relevant Surgical Conditions: Total Knee Replacement-Left, Total Knee Replacement-Right, TotalHip Replacement-Left Employment: Retired Intake Information: Prescription present Previous Treatment: None, TENS (meloxicam - pt. reports this helps.) Falls Interview: No positive findings with falls [...] 2 Pain Location: Hip - Right Description: (feels like it has a lot of arthritis.) Post Treatment Pain Post Treatment Pain Level: [...] Lumbar Extension: Major limitation Lumbar R Side [place]: Moderate limitation Lumbar L Side [place]: Moderate limitation Lumbar R Side-Bend: Moderate limitation [...] Demonstration TREATMENT: PT Treatment Interventions: Therapeutic Exercise, Self-Half-Way Management Evaluation Therapeutic Exercise: 1: Supine Quadricep [...] and function . Patient education as noted. Self-Half-Way Management: 1: encouraged continued visits for optimal [...] 1300 Session Stop Time : 1345 Jewels Lopez PT documented in this encounterHenry County Hospital11-10-2023 Miscellaneous Notes* Telephone Encounter - Naty [...] know so she can come in and vegetable picker the kit. Naty Echols LPN documented in this encounterHenry County Hospital11-09-2023 History of Present illness Narrative* Isabel [...] 20, 2023 1:55 PM documented in this encounterHenry County Hospital11-07-2023 History of Present illness Narrative* Katlyn Almanza MA - 03/18/2023 2:56 PM EST Patient notified via my chart. Per note below. Katlyn Almanza MA * Luis M Johnson MD - 03/18/2023 1:08 PM EST Let patient know stool test and labs were placed and should not be done until on or after so they can be reviewed at her appt [...] PCP. Patient is requesting a message via Thinkspeed when labs are signed, as she would [...] Care Gap or Scheduling/Wellness visits Payer: Payor: RAND[employer]AR[employer] MEDICARE / Plan: [employer] MEDICARE HMO / Product Type: HMO / Care Gap Reviewed:: Breast Cancer screening Colorectal Cancer Screening HBA1C Reminder: Reminder note to check Health Maintenance for items below Health Maintenance items due: Hepatitis B Vaccine(1 of 3 - Risk 3-dose series) Never done RSV Vaccine(1 - 1-dose 60+ series) Never done Mammogram Screening due on 10/23/2022 Covid-19 Vaccine(2022- season) due on 01/10/2023 Colorectal Cancer Screening due on 04/23/2023 Navigation Signature: Teddy Pollard Population Health Navigator March 18, 2023 11:10 AM documented in this encounterHenry County Hospital11-06-2023 History of Present illness Narrative* Stormy Hamilton PA-C - 03/17/2023 1:25 PM EST Stormy Hamilton PA-C Department of Orthopaedics Orthopaedics [facility] [address] Dept: [phone] Dept March 17, 2023 Consultation requested by [...] a left totalhip arthroplasty with Dr. Gonzalez years ago. Patient is also status post bilateral total [...] old in no apparent distress. Gen:Ht 5' 6 (1.68m) Wt 306 lb (138.8kg) BMI 49.41 [...] pedis Imaging: IMPRESSION: Mild right hip osteoarthritis. Intervention Teacher: CATHY Transcribe Date/Time: Oct 23 2022 9:17A [...] XR HIP GENERAL 3V PELV/AP/LAT RIGHT (Order #[id number]) on 10/23/2022 - Order Result History Report [...] anxiety) This note was partially generated using Spout voice recognition system, and there may be [...] X-rays done on 10/21/22. documented in this encounterHenry County Hospital09-19-2023 Miscellaneous Notes* Telephone Encounter - Mary [...] and advise. Hermelinda Thomas documented in this encounterHenry County Hospital08-18-2023 Miscellaneous Notes* Telephone Encounter - Sandy Pizano LPN - 12/27/2022 1:14 PM EDT Last refill Norvasc 10/04/22 Qty: 30 with 2 refills Last refill Protonix 06/06/22 Qty: 90 with 1 refill MURRAY 10/14/22 NOV 04/15/23 Sandy Pizano LPN * Telephone Encounter - Alicia Diaz [...] notify patient. Alicia Diaz documented in this encounterHenry County Hospital06-13-2023 Miscellaneous Notes* Telephone Encounter - AUDREY [...] AUDREY Phillips - 10/14/2022 4:25 PM EDT Sw called and left patient message requesting call back to discuss Advance Directives. documented in this encounterHenry County Hospital06-12-2023 History of Present illness Narrative* Ceci Garcia RT(R) - 10/21/2022 1:20 PM EDT Radiology Service [...] IV DATA: Not applicable SIGNED BY: RT Aldair(R) October 22, 2022 11:11 AM documented in this encounterHenry County Hospital06-05-2023 Instructions* Patient Instructions* Teddy Cox APRN.CQ DEVELOPER - 10/14/2022 12:47 PM EDT Screening schedule [...] review all the medicines you take, even wccz-nij-mlxlowa medicines. As you get older, the way [...] have certain medical conditions. documented in this encounterHenry County Hospital06-05-2023 History of Present illness Narrative* Teddy Cox APRN.CNP - 10/14/2022 12:43 PM EDT Beverly Givens is a 72 year old female here for a Medicare Subsequent Annual Wellness Visit Health Risk Assessment In general, health is: Good Concerns with balance:Several days Concerns with teeth or dentures:Several days [place] anxious, stressed, angry, irritable, lonely, isolated, or [...] PHYSICIAN: David Wolfe MD PSG done @ [facility] AHI 11. Complete report has been scanned into [employer]. Neurology procedures. Osteopenia 06/07/2008 Recurrent major depression [...] Abs Lymph 1.00 - 4.00 k/uL 3.70 [place]% % 7.8 Abs [place] <0.87 k/uL 0.72 Eosin% % 0.8 Abs [...] Negative Ketones, Urine Trace, Negative Negative Specific Leroy, Ur 1.005 - 1.030 1.016 Hemoglobin/Blood,Ur Negative, [...] directives - ICD9: V65.49, ICD10: Z71.89 - LEAK DETECTOR [CONSULT TO SOCIAL WORK] 4. Type 2 diabetes mellitus with microalbuminuria, unspecified whether fci insulin use (HCC) - ICD9: 250.40, 791.0, [...] weather Teddy Cox APRN.CNP documented in this encounterHenry County Hospital03-28-2023 Instructions* Patient Instructions* Teddy Cox APRN.CNP - 08/06/2022 11:45 AM EDT Continue current medications Follow up as scheduled documented in this encounterHenry County Hospital03-28-2023 History of Present illness Narrative* Teddy [...] PHYSICIAN: David Wolfe MD PSG done @ [facility] AHI 11. Complete report has been scanned into [facility]. Neurology procedures. Osteopenia 06/07/2008 Recurrent major [...] <130/80 Teddy Cox APRN.CNP documented in this encounterHenry County Hospital02-28-2023 Instructions* Patient Instructions* Teddy Cox APRN.CNP [...] foods from the protein group each week. [place] with main dishes made with beans or peas, nuts, soy and seafood. Eat seafood in place of meat or poultry twice a week. Include some fish that are higher in oils andlow in mercury, such as salmon, trout and cooney. Milk (8 grams), yogurt (12 grams) and Faroese yogurt (18 grams) contain protein. Choose lean [...] and sodium Make these occasional treats only. [place] Instant Breakfast, mixed with milk, contains 13 grams of protein a serving. documented in this encounterHenry [facility] Hospital02-28-[facility]23 History of Present illness Narrative* Teddy [...] PHYSICIAN: David Wolfe MD PSG done @ [facility] AHI 11. Complete report has been scanned into [employer]. Neurology procedures. Osteopenia 06/07/2008 Recurrent major depression [...] - AMLODIPINE 10 MG TABLET Teddy Cox APRN.CNP documented in this encounterHenry County Hospital01-31-2023 Instructions* Patient Instructions* Teddy Cox APRN.CNP - 06/11/2022 12:48 PM EST Continue lisinopril Start amlodopine Follow up in 4 weeks documented in this encounterHenry County Hospital01-31-2023 History of Present illness Narrative* Teddy [...] PHYSICIAN: David Wolfe MD PSG done @ [facility] AHI 11. Complete report has been scanned into [employer]. Neurology procedures. Osteopenia 06/07/2008 Recurrent major depression [...] - AMLODIPINE 5 MG TABLET Teddy Cox APRN.CNP documented in this encounterHenry County Hospital01-26-2023 Miscellaneous Notes* Telephone Encounter - Luis [...] Last refill: 10/2021 * Telephone Encounter - [facility] - 06/06/2022 2:24 PM EST Patient has [...] to pharmacy. No need to notify patient. [facility] documented in this encounterHenry County Hospital12-19-2022 Miscellaneous Notes* Telephone Encounter - Sandy Pizano LPN - 04/29/2022 10:00 AM EST Pt notified of same. Sandy Pizano LPN * Telephone Encounter - Luis M Johnson MD - 04/27/2022 2:35 PM EST Let patient know stool test was negative for blood. documented in this encounterHenry County Hospital12-06-2022 Miscellaneous Notes* Telephone Encounter - Joanne Lechuga Ma - 04/16/2022 3:43 PM EST PA approved and patient notified through mychart Joanne Lechuga Ma * Telephone Encounter - Joanne Lechuga Ma - 04/16/2022 11:24 AM EST Prior Authorization has been completed online at [employer] for cyclobenzprine, will await response. [id number] Please keep encounter open until final decision has been received and documented from insurance company. Joanne Lechuga MA documented in this encounterHenry County Hospital12-02-2022 Instructions* Patient Instructions* Luis M Johnson MD - 04/12/2022 2:13 PM EST Consider getting the shingrix vaccine for the prevention of shingles from a local pharmacy. Please get labs and urine test done on or after 09/27/2022 prior to your next visit. documented in this encounterHenry County Hospital12-02-2022 History of Present illness Narrative* Luis [...] PHYSICIAN: David Wolfe MD PSG done @ [facility] AHI 11. Complete report has been scanned into [facility]. Neurology procedures. Osteopenia 06/07/2008 Recurrent major [...] Abs Lymph 1.00 - 4.00 k/uL 3.90 [place]% % 9.0 Abs [place] <0.87 k/uL 0.78 Eosin% % 1.0 Abs [...] Negative Negative Ketones, Urine Negative Negative Specific Leroy, Ur 1.005 - 1.030 1.013 Hemoglobin/Blood,Ur Negative [...] 2 diabetes mellitus with microalbuminuria, unspecified whether fci insulin use (HCC) - ICD9: 250.40, 791.0, [...] BUSPIRONE 15 MG TABLET 9. 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 10. WIHT (obstructive sleep apnea) - ICD9: 327.23, ICD10: G47.33 - continues to benefit from nightly CPAP use. 11. Morbid obesity with body mass index (BMI) of 45.0 to 49.9 in adult ([facility]) - ICD9: 278.01, V85.42, ICD10: E66.01, [...] Luis M Johnson MD documented in this encounterHenry County Hospital11-18-2022 Miscellaneous Notes* Telephone Encounter - Katlyn [...] refill: 10/2021 * Telephone Encounter - Ceci Quiles - 03/29/2022 9:46 AM EST Patient has [...] advise. Ceci Copeland Pss documented in this encounterHenry County Hospital11-17-2022 History of Present illness Narrative* Greer [...] visits Payer: Payor: T MEDICARE / Plan: AET MEDICARE HMO / [...] 28, 2022 10:14 AM documented in this encounterHenry County Hospital09-27-2022 Miscellaneous Notes* Telephone Encounter - Naty Echols LPN - 02/05/2022 11:57 AM EDT Pt called and states she got her flu shot at [facility] today 02/05/22. Charted. Naty Echols LPN documented in this encounterHenry County Hospital08-30-2022 History of Present illness Narrative* Teddy [...] visits Payer: Payor: T MEDICARE / Plan: AET MEDICARE HMO / Product Type: HMO / Care Gap Reviewed:: Colorectal Cancer Screening Diabetic Eye Exam Reminder: Reminder note to check Health Maintenance for items below Health Maintenance items due: DILATED RETINAL EXAM due on 06/16/2021 COLORECTAL CANCER SCREENING due on 12/04/2021 Message Sent to Practice: No Navigation Signature: Teddy Quiles January 08, 2022 11:00 AM documented in this encounterHenry County Hospital08-26-2022 Miscellaneous Notes* Telephone Encounter - Katlyn Almanza MA - 01/04/2022 10:13 AM EDT Left detailed message for patient. Katlyn Almanza MA * Telephone Encounter - Katlyn Almanza MA - 01/04/2022 7:42 AM EDT Faxed. Katlyn Almanza MA * Telephone Encounter - Luis M Johnson MD - 01/03/2022 4:50 PM EDT Order ready to be faxed * Telephone Encounter - Anyveto Hancock - 01/03/2022 3:43 PM EDT Pt would like a referral to the [facility] Diabetes Education. She does not want to go with the Clinics providers. Please advise. documented in this encounterHenry County Hospital06-24-2022 Nurse Note* Katlyn Almanza MA - 11/02/2021 1:17 PM EDT 129/82 Average 130/83 126/83 128/82 130/82 132/83 documented in this encounterHenry County Hospital06-24-2022 History of Present illness Narrative* Luis [...] PHYSICIAN: David Wolfe MD PSG done @ [facility] AHI 11. Complete report has been scanned into [employer]. Neurology procedures. Osteopenia 06/07/2008 Recurrent major depression [...] Luis M Johnson MD documented in this encounterHenry County Hospital06-15-2022 Miscellaneous Notes* Telephone Encounter - Sandy Pizano LPN - 10/24/2021 10:37 AM EDT Pt notified of same. Sandy Pizano LPN * Telephone Encounter - Sandy Pizano LPN - 10/24/2021 10:31 AM EDT ----- Message from Summer Telles PA-C sent at 10/24/2021 10:06 AM EDT ----- Normal mammogram. Repeat in 1 year. documented in this encounterHenry County Hospital06-15-2022 Miscellaneous Notes* Letter - Mammography Coordinator - 10/24/2021 7:58 AM EDT October 24, 2021 PID: [id number] Beverly Givens [address] [place] [address] Dear Delicia EllisonTosha, We are pleased to inform you that [...] report will be [facility] as part of [facility] permanent medical record and are available for your continuing care. Thank you for allowing us to help in meeting your health care needs. Sincerely, Dr. Wills Interpreting Radiologist [facility] (Normal over 40) documented in this encounterHenry County Hospital06-14-2022 History of Present illness Narrative* Reshma Kelley, RT(R) - 10/23/2021 2:20 PM EDT Radiology Service [...] 23, 2021 2:00 PM documented in this encounterHenry County Hospital06-13-2022 Miscellaneous Notes* Telephone Encounter - Katlyn [...] scheduled. Bonnie Campoverde RN documented in this encounterHenry County Hospital06-08-2022 Miscellaneous Notes* Telephone Encounter - Dena Wiggins - 10/17/2021 1:53 PM EDT Left brief message on cell voicemail stating to call the office to schedule New patient appointmentwith Dr. Sadler or Meka Costa in [place]. Dena Wiggins documented in this encounterHenry County Hospital06-06-2022 Miscellaneous Notes* Telephone Encounter - Luh [...] ORTHO. Katlyn Almanza MA documented in this encounterHenry County Hospital06-06-2022 Miscellaneous Notes* Telephone Encounter - Summer [...] until advised. Thank you. documented in this encounterHenry County Hospital06-03-2022 Miscellaneous Notes* Telephone Encounter - Shandra Leavitt RN - 10/12/2021 9:49 AM EDT Patient calls and wanted provider to know that the meloxicam has worked wonders for her. Patient states that it was a great choice. Patient wanted to thank provider for prescribing this for her. Shandra Leavitt RN documented in this encounterHenry County Hospital05-16-2022 Miscellaneous Notes* Telephone Encounter - Luis [...] Refills: 1 * Telephone Encounter - Lamar Tirado Pss - 09/24/2021 3:57 PM EDT Patient has been identified by name and date of : Yes Pending Prescriptions Disp Refills CYCLOBENZAPRINE 10 MG TABLET 60 tablet 2 Sig: Take 1 tablet by mouth twice daily as needed. ELBA: No RX INSTRUCTIONS: Patient aware RX will be sent to pharmacy. Please call patient once submitted. Lamar Tirado Pss documented in this encounterHenry County Hospital05-03-2022 Miscellaneous Notes* Telephone Encounter - Joanne [...] we get her rescheduled. documented in this encounterHenry County Hospital10-21-2015 History of Past illness Narrative* Problem Noted Date Resolved Date Diabetes mellitus type 2 with ketoacidosis, unco ntrolled 03/01/2015 05/28/2015 documented as of this encounter (statuses as of 09/11/2021) [facility] of Past illness Narrative* Problem Noted Date Resolved Date Diabetes mellitus type 2 with ketoacidosis, unco ntrolled 03/01/2015 05/28/2015 documented as of this encounter (statuses as of 09/24/2021) [facility] of Past illness Narrative* Problem Noted Date Resolved Date Diabetes mellitus type 2 with ketoacidosis, unco ntrolled 03/01/2015 05/28/2015 documented as of this encounter (statuses as of 10/12/2021) [facility] of [facility] illness Narrative* Problem Noted Date Resolved Date Diabetes mellitus type 2 with ketoacidosis, unco ntrolled 03/01/2015 05/28/2015 documented as of this encounter (statuses as of 10/15/2021) [facility] of [facility] illness Narrative* Problem Noted Date Resolved Date Diabetes mellitus type 2 with ketoacidosis, unco ntrolled 03/01/2015 05/28/2015 documented as of this encounter (statuses as of 10/15/2021) [facility] Narrative* Problem Noted Date Resolved Date Diabetes mellitus type 2 with ketoacidosis, unco ntrolled 03/01/2015 05/28/2015 documented as of this encounter (statuses as of 10/17/2021) [facility] Narrative* Problem Noted Date Resolved Date Diabetes mellitus type 2 with ketoacidosis, unco ntrolled 03/01/2015 05/28/2015 documented as of this encounter (statuses as of 10/22/2021) [facility] Narrative* Problem Noted Date Resolved Date Diabetes mellitus type 2 with ketoacidosis, unco ntrolled 03/01/2015 05/28/2015 documented as of this encounter (statuses as of 10/24/2021) [facility] Narrative* Problem Noted Date Resolved Date Diabetes mellitus type 2 with ketoacidosis, unco ntrolled 03/01/2015 05/28/2015 documented as of this encounter (statuses as of 10/24/2021) [facility] Narrative* Problem Noted Date Resolved Date Diabetes mellitus type 2 with ketoacidosis, unco ntrolled 03/01/2015 05/28/2015 documented as of this encounter (statuses as of 10/26/2021) [facility] Narrative* Problem Noted Date Resolved Date Diabetes mellitus type 2 with ketoacidosis, unco ntrolled 03/01/2015 05/28/2015 documented as of this encounter (statuses as of 10/30/2021) [facility] Narrative* Problem Noted Date Resolved Date Diabetes mellitus type 2 with ketoacidosis, unco ntrolled 03/01/2015 05/28/2015 documented as of this encounter (statuses as of 11/05/2021) [facility] Narrative* Problem Noted Date Resolved Date Diabetes mellitus type 2 with ketoacidosis, unco ntrolled 03/01/2015 05/28/2015 documented as of this encounter (statuses as of 01/04/2022) [facility] Narrative* Problem Noted Date Resolved Date Diabetes mellitus type 2 with ketoacidosis, unco ntrolled 03/01/2015 05/28/2015 documented as of this encounter (statuses as of 01/08/2022) [facility] Narrative* Problem Noted Date Resolved Date Diabetes mellitus type 2 with ketoacidosis, unco ntrolled 03/01/2015 05/28/2015 documented as of this encounter (statuses as of 02/05/2022) [facility] Narrative* Problem Noted Date Resolved Date Diabetes mellitus type 2 with ketoacidosis, unco ntrolled 03/01/2015 05/28/2015 documented as of this encounter (statuses as of 03/28/2022) [facility] Narrative* Problem Noted Date Resolved Date Diabetes mellitus type 2 with ketoacidosis, unco ntrolled 03/01/2015 05/28/2015 documented as of this encounter (statuses as of 03/29/2022) [address]21-2015 History of Past illness Narrative* Problem Noted Date Resolved Date Diabetes mellitus type 2 with ketoacidosis, unco ntrolled 03/01/2015 05/28/2015 documented as of this encounter (statuses as of 04/13/2022) [address]21-2015 History of Past illness Narrative* Problem Noted Date Resolved Date Diabetes mellitus type 2 with ketoacidosis, unco ntrolled 03/01/2015 05/28/2015 documented as of this encounter (statuses as of 04/16/2022) [facility] Narrative* Problem Noted Date Resolved Date Diabetes mellitus type 2 with ketoacidosis, unco ntrolled 03/01/2015 05/28/2015 documented as of this encounter (statuses as of 04/16/2022) [facility] Narrative* Problem Noted Date Resolved Date Diabetes mellitus type 2 with ketoacidosis, unco ntrolled 03/01/2015 05/28/2015 documented as of this encounter (statuses as of 04/29/2022) [facility] Narrative* Problem Noted Date Resolved Date Diabetes mellitus type 2 with ketoacidosis, unco ntrolled 03/01/2015 05/28/2015 documented as of this encounter (statuses as of 06/06/2022) [facility] Narrative* Problem Noted Date Resolved Date Diabetes mellitus type 2 with ketoacidosis, unco ntrolled 03/01/2015 05/28/2015 documented as of this encounter (statuses as of 06/11/2022) [facility] Narrative* Problem Noted Date Resolved Date Diabetes mellitus type 2 with ketoacidosis, unco ntrolled 03/01/2015 05/28/2015 documented as of this encounter (statuses as of 07/09/2022) [facility] Narrative* Problem Noted Date Resolved Date Diabetes mellitus type 2 with ketoacidosis, unco ntrolled 03/01/2015 05/28/2015 documented as of this encounter (statuses as of 08/06/2022) [facility]* Problem Noted Date Resolved Date Diabetes mellitus type 2 with ketoacidosis, unco ntrolled 03/01/2015 05/28/2015 documented as of this encounter (statuses as of 10/14/2022) [facility] Narrative* Problem Noted Date Resolved Date Diabetes mellitus type 2 with ketoacidosis, unco ntrolled 03/01/2015 05/28/2015 documented as of this encounter (statuses as of 10/16/2022) [facility] Narr[facility]* Problem Noted Date Resolved Date Diabetes mellitus type 2 with ketoacidosis, unco ntrolled 03/01/2015 05/28/2015 documented as of this encounter (statuses as of 10/22/2022) [facility] Narrative* Problem Noted Date Diagnosed Date Resolved Date Diabetes mellitus type 2 wit h ketoacidosis, uncontrolled 03/01/2015 05/28/2015 documented as of this encounter (statuses as of 11/27/2022) [facility] N[facility]ative* Problem Noted Date Diagnosed Date Resolved Date Diabetes mellitus type 2 wit h ketoacidosis, uncontrolled 03/01/2015 05/28/2015 documented as of this encounter (statuses as of 12/27/2022) [facility] Narrative* Problem Noted Date Diagnosed Date Resolved Date Diabetes mellitus type 2 wit h ketoacidosis, uncontrolled 03/01/2015 05/28/2015 documented as of this encounter (statuses as of 01/28/2023) [facility]* Problem Noted Date Diagnosed Date Resolved Date Diabetes mellitus type 2 wit h ketoacidosis, uncontrolled 03/01/2015 05/28/2015 documented as of this encounter (statuses as of 03/16/2023) [facility]arrative* Problem Noted Date Diagnosed Date Resolved Date Diabetes mellitus type 2 wit h ketoacidosis, uncontrolled 03/01/2015 05/28/2015 documented as of this encounter (statuses as of 03/18/2023) [facility]* Problem Noted Date Diagnosed Date Resolved Date Diabetes mellitus type 2 wit h ketoacidosis, uncontrolled 03/01/2015 05/28/2015 documented as of this encounter (statuses as of 03/19/2023) [facility]* Problem Noted Date Diagnosed Date Resolved Date Diabetes mellitus type 2 wit h ketoacidosis, uncontrolled 03/01/2015 05/28/2015 documented as of this encounter (statuses as of 03/19/2023) [facility]* Problem Noted Date Diagnosed Date Resolved Date Diabetes mellitus type 2 wit h ketoacidosis, uncontrolled 03/01/2015 05/28/2015 documented as of this encounter (statuses as of 03/21/2023) [facility]* Problem Noted Date Diagnosed Date Resolved Date Diabetes mellitus type 2 wit h ketoacidosis, uncontrolled 03/01/2015 05/28/2015 documented as of this encounter (statuses as of 03/21/2023) [facility]* Problem Noted Date Diagnosed Date Resolved Date Diabetes mellitus type 2 wit h ketoacidosis, uncontrolled 03/01/2015 05/28/2015 documented as of this encounter (statuses as of 03/22/2023) [facility]* Problem Noted Date Diagnosed Date Resolved Date Diabetes mellitus type 2 wit h ketoacidosis, uncontrolled 03/01/2015 05/28/2015 documented as of this encounter (statuses as of 03/28/2023) [facility]* Problem Noted Date Diagnosed Date Resolved Date Diabetes mellitus type 2 wit h ketoacidosis, uncontrolled 03/01/2015 05/28/2015 documented as of this encounter (statuses as of 03/29/2023) [facility]arrative* Problem Noted Date Diagnosed Date Resolved Date Diabetes mellitus type 2 wit h ketoacidosis, uncontrolled 03/01/2015 05/28/2015 documented as of this encounter (statuses as of 03/31/2023) [facility]arrative* Problem Noted Date Diagnosed Date Resolved Date Diabetes mellitus type 2 wit h ketoacidosis, uncontrolled 03/01/2015 05/28/2015 documented as of this encounter (statuses as of 04/15/2023) [facility]* Problem Noted Date Diagnosed Date Resolved Date Diabetes mellitus type 2 wit h ketoacidosis, uncontrolled 03/01/2015 05/28/2015 documented as of this encounter (statuses as of 04/16/2023) [facility]ative* Problem Noted Date Diagnosed Date Resolved Date Diabetes mellitus type 2 wit h ketoacidosis, uncontrolled 03/01/2015 05/28/2015 documented as of this encounter (statuses as of 04/16/2023) [facility]ative* Problem Noted Date Diagnosed Date Resolved Date Diabetes mellitus type 2 wit h ketoacidosis, uncontrolled 03/01/2015 05/28/2015 documented as of this encounter (statuses as of 04/26/2023) [facility] Narrative* Problem Noted Date Diagnosed Date Resolved Date Diabetes mellitus type 2 wit h ketoacidosis, uncontrolled 03/01/2015 05/28/2015 documented as of this encounter (statuses as of 07/31/2023) [facility] No data available for this section [facility] Evaluation note* Diagnosis Fibromyalgia Mylagia and myositis, unspecified documented in this encounter [facility]* Diagnosis Fibromyalgia- Primary Mylagia and myositis, unspecified Chronic pain syndrome Chronic sacroiliac strain, subsequent encounter documented in this encounter [facility]* Diagnosis Encounter for screening mammogram for breast cancer documented in this encounter [facility]* Diagnosis Left hand pain- Primary Pain in limb Bilateral shoulder pain, unspecified chronicity documented [facility] this encounter [facility]* Diagnosis Elevated blood pressure reading without diagnosis of hypertension- Primary documented in this encounter [facility]Evaluation noteNo assessment information availableWMadison Health Work Phone: Evaluation note* Diagnosis Type 2 diabetes mellitus with microalbuminuria, unspecified whether fci insulin use (HCC)- Primary Diabetic eye exam (HCC) Type II or [...] of other medications documented in this encounter [facility] note* Diagnosis Hypertension, essential- Primary Unspecified essential hypertension Environmental allergies Other allergy, other than to medicinal agents documented in this encounter [facility] note* Diagnosis Hypertension, essential- Primary Unspecified essential hypertension documented in this encounter [facility] note* Diagnosis Hypertension, essential- Primary Unspecified essential hypertension Compulsive overeating Bulimia nervosa documented in this encounter [facility] note* Diagnosis Medicare annual wellness visit, subsequent- Primary Routine general medical examination at a health care facility Encounter for screening mammogram for malignant neoplasm of breast Other screening mammogram Counseling regarding advanced directives Other specified counseling Type 2 diabetes mellitus with microalbuminuria, unspecified whether traffic 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 (HCC) Morbid obesity with body [...] Breast screening, unspecified documented in this encounter [facility] note* Diagnosis Pain in right hip- Primary Pain in joint, pelvic region and thigh documented in this encounter [facility] note* Diagnosis APPOINTMENT CANCELLED- Primary Pain of right hip documented in this encounter [facility] note* Diagnosis Hypertension, essential Unspecified essential hypertension [facility] Diagnosis Pain in right hip Pain in joint, pelvic region and thigh [facility] Diagnosis Trochanteric bursitis of left hip- Primary Enthesopathy of hip region Primary osteoarthritis of right hip Primary localized osteoarthrosis, pelvic region and thigh Morbid obesity (HCC) Morbid obesity [facility]* Diagnosis Hypertension, essential- Primary Unspecified essential hypertension Mixed hyperlipidemia Type 2 diabetes mellitus with microalbuminuria, unspecified whether traffic 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 ([facility]) Screening for colon cancer Special screening for malignant neoplasms, colon Hypercalcemia [facility] Diagnosis Encounter for screening mammogram for malignant neoplasm of breast Other screening mammogram [facility] Diagnosis Screening for colon cancer- Primary Special screening for malignant neoplasms, colon [facility] Diagnosis Primary osteoarthritis of right hip- Primary Primary localized osteoarthrosis, pelvic region and thigh Trochanteric bursitis of left hip Enthesopathy of hip region Morbid obesity (HCC) Morbid obesity [facility] Diagnosis Abnormal mammogram of left breast- Primary [facility] Diagnosis Hypertension, essential Unspecified essential hypertension documented in this encounter [facility] note* Diagnosis Fibromyalgia- Primary Mylagia and myositis, unspecified DDD (degenerative disc disease), lumbar Degeneration of lumbar or lumbosacral intervertebral disc Generalized anxiety disorder Hypertension, essential Unspecified essential hypertension Gastroesophageal reflux disease without esophagitis Esophageal reflux Type 2 diabetes mellitus with microalbuminuria, unspecified whether traffic 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 ([facility]) WHIT (obstructive sleep apnea) Obstructive sleep apnea (adult) (pediatric) Adjustment disorder, unspecified type Mixed hyperlipidemia Encounter for immunization Need for other specified prophylactic vaccination against single bacterial disease Low serum vitamin B12 Morbid obesity with body mass index (BMI) of 45.0 to 49.9 in adult ([facility]) Recurrent major depression in partial remission ([facility]) Major depressive disorder, recurrent episode, in partial or unspecified remission Chronic pain syndrome Primary osteoarthritis of right hip Primary localized osteoarthrosis, pelvic region and thigh [facility] Diagnosis Abnormal mammogram of left breast documented in this encounter [facility] note* Diagnosis Generalized anxiety disorder Fibromyalgia Mylagia and myositis, unspecified [facility] Diagnosis Medicare annual wellness visit, subsequent- Primary Routine general medical examination at a health care facility Type 2 diabetes mellitus with diabetic microalbuminuria, unspecified whether fci insulin use (HCC) Diabetic eye exam (HCC) [...] 45.0 to 49.9 in adult ([facility]) Stasis dermatitis of right lower extremity due to peripheral venous hypertension WHIT (obstructive sleep apnea) Obstructive sleep apnea (adult) (pediatric) Foot callus Corns and callosities Osteopenia, senile Disorder of bone and cartilage, unspecified Encounter for immunization Need for other specified prophylactic vaccination against single bacterial disease Medication management Encounter for long-term (current) use of other medications Diabetic foot (HCC) Type II or unspecified type diabetes mellitus with other specified manifestations, not stated as uncontrolled [facility] Diagnosis Hypercalcemia- Primary [facility] Diagnosis Fibromyalgia Mylagia and myositis, unspecified [facility] Diagnosis Osteopenia, senile Disorder of bone and cartilage, unspecified [facility] Diagnosis Hypercalcemia- Primary [facility] Diagnosis Diabetic eye exam (HCC)- Primary Type II or unspecified type diabetes mellitus without mention of complication, not stated as uncontrolled [facility]* Diagnosis Hypertension, essential Unspecified essential hypertension [facility] Diagnosis Hypertension, essential- Primary Unspecified essential hypertension Mixed hyperlipidemia Gastroesophageal reflux disease without esophagitis Esophageal reflux Type 2 diabetes mellitus with diabetic microalbuminuria, unspecified whether fci insulin use ([facility]) Encounter for screening mammogram for breast cancer WHIT (obstructive sleep apnea) Obstructive sleep apnea (adult) (pediatric) Recurrent major depression in partial remission (HCC) Major depressive disorder, recurrent episode, in partial or unspecified remission Generalized anxiety disorder Class 3 severe obesity with body mass index (BMI) of 40.0 to 44.9 in adult, unspecified obesity type, unspecified whether serious comorbidity present ([facility]) Primary osteoarthritis of right hip Primary localized osteoarthrosis, pelvic region and thigh documented in this encounter [facility] note* Diagnosis Sore throat- Primary Acute pharyngitis Acute cough Sinobronchitis Unspecified sinusitis (chronic) Acute cough documented in this encounter [facility] note* Diagnosis Acute cough documented in this encounter [facility] note* Diagnosis Fibromyalgia Mylagia and myositis, unspecified documented in this encounter [facility] note* Diagnosis Medicare annual wellness visit, subsequent- Primary Routine general medical examination at a health care facility Type 2 diabetes mellitus with diabetic microalbuminuria, unspecified whether fci insulin use ([facility]) Diabetic eye exam ([facility]) Type II or unspecified type diabetes [...] behavior of skin [facility] No data available for this section [facility] Discharge instructionsAmbulatory Orders* Dermatology Location: None Selected [facility] Work Phone: Reason for referral (narrative)* Diagnostic Procedure Only (Routine) - Pending Review Specialty Diagnoses / Procedures Referred By Contac t Referred To Contact XR IMAGING Diagnoses Left hand pain Procedures XR HAND GENERAL 3V PA/LAT/OBL LEFT RADEX HAND MINIMUM 3 VIEWS Sundeep Solis MD [address] [place] [address] Xr Imaging Referral ID Status Reason Start Date Expiration Date Visits Requested Visits Authorized [id number] Pending Review Auto-Generat ed Referral 10/30/2021 11/29/2022 1 1 * Diagnostic Procedure Only (Routine) - Pending Review Specialty Diagnoses / Procedures Referred By Erikac t Referred To Contact XR IMAGING Diagnoses Bilateral shoulder pain, unspecified chronicity Procedures XR SHOULDER GENERAL 3V OR MORE AP/TRUE AP/OTHER RIGHT RADEX SHOULDER COMPLETE MINIMUM 2 VIEWS Sundeep Solis MD [address] [place] [address] Xr Imaging Referral ID Status Reason Start Date Expiration Date Visits Requested Visits Authorized [id number] Pending Review Auto-Generat ed Referral 10/30/2021 11/29/2022 1 1 * Diagnostic Procedure Only (Routine) - Pending Review Specialty Diagnoses / Procedures Referred By Yanci t Referred To Contact XR IMAGING Diagnoses Bilateral shoulder pain, unspecified chronicity Procedures XR SHOULDER GENERAL 3V OR MORE AP/TRUE AP/OTHER LEFT RADEX SHOULDER COMPLETE MINIMUM 2 VIEWS Sundeep Solis MD [address] [place] [address] Xr Imaging Referral ID Status Reason Start Date Expiration Date Visits Requested Visits Authorized [id number] Pending Review Auto-Generat ed Referral 10/30/2021 11/29/2022 1 1 [facility] for referral (narrative)* Diagnostic Procedure Only (Routine) - Pending Review Specialty Diagnoses / Procedures Referred By Contac t Referred To Contact BR IMAGING Diagnoses Encounter for screening mammogram for malignant neoplasm of breast Procedures MINI SCREENING SCREENING MAMMOGRAPHY BI 2-VIEW BREAST INC Teddy Harrell APRN.CQ DEVELOPER [address] [place] [address] [facility] [address] [place] [address] Referral ID Status Reason Start Date Expiration Date Visits Requested Visits Authorized [id number] Pending Review Auto-Generat ed Referral 10/14/2022 11/13/2023 1 1 [facility] for referral (narrative)* Diagnostic Procedure Only (Routine) - Pending Review Specialty Diagnoses / Procedures Referred By Contac t Referred To Contact XR IMAGING Diagnoses Pain in right hip Procedures XR HIP GENERAL 3V PELV/AP/LAT RIGHT RADEX HIP UNILATERAL WITH PELVIS 2-3 VIEWS Sundeep Solis MD [address] [place] [address] Xr Imaging Referral ID Status Reason Start Date Expiration Date Visits Requested Visits Authorized [id number] Pending Review Auto-Generat ed Referral 10/16/2022 11/15/2023 1 1 [facility] for referral (narrative)* Diagnostic Procedure Only (Routine) - Closed Specialty Diagnoses / Procedures Referred By Erikac t Referred To Contact XR IMAGING Diagnoses Pain in right hip Procedures XR HIP GENERAL 3V PELV/AP/LAT RIGHT RADEX HIP UNILATERAL WITH PELVIS 2-3 VIEWS Sundeep Solis MD [address] [place] [address] [place] [id number] Referral ID Status Reason Start Date Expiration Date V isits Requested Visits Authorized [id number] Closed Auto-Generate d Referral 10/16/2022 11/15/2023 1 1 [facility] for referral (narrative)* Diagnostic Procedure Only (Routine) - Pending Review Specialty Diagnoses / Procedures Referred By Contac t Referred To Contact BR IMAGING Diagnoses Abnormal mammogram of left breast Procedures US BREAST LTD LEFT US BREAST UNI REAL TIME WITH IMAGE LIMITED Teddy Cox APRN.CNP [facility] [place] [address] [facility] [address] [place] [address] Referral ID Status Reason Start Date Expiration Date Visits Requested Visits Authorized [id number] Pending Review Auto-Generat ed Referral 3 04/19/2024 1 1 * Diagnostic Procedure Only (Routine) - Authorized Specialty Diagnoses / Procedures Referred By Contac t Referred To Contact BR IMAGING Diagnoses Abnormal mammogram of left breast Procedures MINI DIAGNOSTIC LEFT DIAGNOSTIC MAMMOGRAPHY COMPUTER-AIDED DETCJ UNI Teddy Cox APRN.CNP [facility] [place] [address] [facility] [address] [place] [address] Referral ID Status Reason Start Date Expiration Date Visits Requested Visits Authorized [id number] Authorized Auto-Generat ed Referral 3 04/19/2024 1 1 [facility] for referral (narrative)* Diagnostic Procedure Only (Routine) - Authorized Specialty Diagnoses / Procedures Referred By Contac t Referred To Contact XR IMAGING Diagnoses Osteopenia, senile Procedures DXA-AXIAL SKELETON Luis M Johnson MD [address] [place] [address] [place] [id number] Referral ID Status Reason Start Date Expiration Date Visits Requested Visits Authorized [id number] Authorized Auto-Generat ed Referral 10/17/2023 11/15/2024 1 1 * Consult, Test, Treat (Routine) - Pending Review Specialty Diagnoses / Procedures Referred By Contac t Referred To Contact Podiatry Diagnoses Type 2 diabetes mellitus with diabetic microalbuminuria, unspecified whether fci insulin use (HCC) Diabetic foot (HCC) Procedures CONSULT TO PODIATRY OFFICE/OUTPATIENT [facility] MDM 60 [place] [address] [place] [address] Referral ID Status Reason Start Date Expiration Date Visits Requested Visits Authorized [id number] Pending Review PCP Requested Referral 10/17/2023 10/16/2024 1 1 [facility] for referral (narrative)* Diagnostic Procedure Only (Routine) - New Request Specialty Diagnoses / Procedures Referred By Contac t Referred To Contact BR IMAGING Diagnoses Encounter for screening mammogram for breast cancer Procedures MINI SCREENING W IDRIS SCREENING DIGITAL BREAST TOMOSYNTHESIS BI SCREENING MAMMOGRAPHY BI 2-VIEW BREAST INC CAD Teddy Cox APRN.CQ DEVELOPER [address] [place] [address] [facility] [address] [place] [address] Referral ID Status Reason Start Date Expiration Date Visits Requested Visits Authorized [id number] New Request Auto-Generat ed Referral 04/19/2024 05/19/2025 1 1 [facility] for visit Narrative* Diagnostic Procedure Only (Routine) - Closed Specialty Diagnoses / Procedures Referred By Contac t Referred To Contact XR IMAGING Diagnoses Pain in right hip Procedures XR HIP GENERAL 3V PELV/AP/LAT RIGHT RADEX HIP UNILATERAL WITH PELVIS 2-3 VIEWS Sundeep Solis MD [address] [place] [address] [place] [address] Referral ID Status Reason Start Date Expiration Date V isits Requested Visits Authorized [id number] Closed Auto-Generate d Referral 10/16/2022 11/15/2023 1 1 [facility] for visit Narrative* Diagnostic Procedure Only (Routine) - Closed Specialty Diagnoses / Procedures Referred By Contac t Referred To Contact BR IMAGING Diagnoses Encounter for screening mammogram for malignant neoplasm of breast Procedures MINI SCREENING SCREENING MAMMOGRAPHY BI 2-VIEW BREAST INC Teddy Harrell APRN.CQ DEVELOPER [address] [place] [address] [facility] [address] [place] [address] Referral ID Status Reason Start Date Expiration Date V isits Requested Visits Authorized [id number] Closed Auto-Generate d Referral 10/14/2022 11/13/2023 1 1 [facility] for visit Narrative* Diagnostic Procedure Only (Routine) - Closed Specialty Diagnoses / Procedures Referred By Contac t Referred To Contact BR IMAGING Diagnoses Abnormal mammogram of left breast Procedures MINI DIAGNOSTIC LEFT DIAGNOSTIC MAMMOGRAPHY COMPUTER-AIDED DETCJ UNI Teddy Cox, ORACLE APPLICATION ARCHITECT.CQ DEVELOPER [address] [place] [address] [facility] [address] [place] [address] Referral ID Status Reason Start Date Expiration Date V isits Requested Visits Authorized [id number] Closed Auto-Generate d Referral 03/21/2023 04/19/2024 1 1 [facility] for visit Narrative* Diagnostic Procedure Only (Routine) - Closed Specialty Diagnoses / Procedures Referred By Contac t Referred To Contact XR IMAGING Diagnoses Osteopenia, senile Procedures DXA-AXIAL SKELETON Luis M Johnson MD [address] [place] [address] [place] [address] Referral ID Status Reason Start Date Expiration Date V isits Requested Visits Authorized [id number] Closed Auto-Generate d Referral 10/17/2023 11/15/2024 1 1 [facility] Advance Directives Documents on File Type Date Recorded 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 Advance Directive(s) Documents on File Type Date Recorded 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 Advance Directive(s) Advance Directive Response Recorded Date/ Time Advance Directives No June 03, 2013 8:10pm Living Will No April 06 6:18pm Power of Delivery Table Operator No April 06, 2021 6:18pm Advance Directive Response Recorded Date/ Time Advance Directives No June 03, 2013 7:10pm Living Will No April 06 021 5:18pm Power of Delivery Table Operator No April 06, 2021 5:18pm Advance Directive [...] Referral Specialty Diagnoses / Procedures Referred By Contac t Referred To Contact [facility] Diagnoses Trochanteric bursitis of left hip Primary osteoarthritis of right hip Morbid obesity (HCC) Procedures CONSULT TO PHYSICAL THERAPY PHYSICAL THERAPY EVALUATION [facility] COMPLEX 45 MINS Stormy Hamilton PA-C [address] [place] [address] [facility] [address] [address] Referral ID Status Reason Start Date Expiration Date Visits Requested Visits Authorized [id number] Authorized Auto-Generat ed Referral 05/12/2022 05/11/2023 99 99 Specialty Diagnoses / Procedures Referred By Contac t Referred To Contact Diagnoses Compulsive overeating Procedures CONSULT TO WELLNESS PHYSICIAN OFFICE/OUTPATIENT [facility] 60-74 MINUTES Teddy Cox APRN.CQ DEVELOPER [address] [place] [address] Referral ID Status Reason Start Date Expiration Date Visits Requested Visits Authorized [id number] Authorized PCP Requested Referral 08/06/2022 08/06/2023 1 1 Specialty Diagnoses / Procedures Referred By Contac t Referred To Contact Pain Management Diagnoses Fibromyalgia Chronic pain syndrome Chronic sacroiliac strain, subsequent encounter Procedures CONSULT TO PAIN MGT OFFICE/OUTPATIENT [facility] 60-74 MINUTES Summer Telles PA-C [address] [place] [address] Referral ID Status Reason Start Date Expiration Date Visits Requested Visits Authorized [id number] Authorized PCP Requested Referral 10/22/2021 10/22/2022 1 1 Chief Complaint and Reason for Visit Chief Complaint TYPE 2 DM Chief Complaint TYPE 2 DM TYPE 2 DM Chief Complaint TYPE 2 DM TYPE 2 DM TYPE 2 DM Chief Complaint Admit Date NEOPLASM R EAR November 19, 2024 1:06 pm Chief Complaint Admit Date NEOPLASM R EAR November 19, 2024 1:06 pm E ORDER LABS December 02, 2024 6:08 am in office procedure December 02, 2024 1:02 pm Reason for Visit Admit Date Neoplasm of uncertain behavior of face J denise 2024 1:06pm Neoplasm of uncertain behavior of face J denise 2024 1:02pm Chief Complaint Admit Date NEOPLASM R EAR November 19, 2024 1:06 pm E ORDER LABS December 02, 2024 6:08 am in office procedure December 02, 2024 1:02 pm post op in office procedure December 09 2:25pm Additional Source Comments Source Comments (unrecognize d section and content) In the event this informatio n is protected by the Federal Confidentiality of Alcohol and Drug Abuse Patient Records regulations: The Federal rules restrict any use of the information to criminally investigate or prosecute any alcohol or drug abuse patient.[facility] event this information is protected by the Federal Confidentiality of Alcohol and Drug Abuse Patient Records regulations: The Federal rules restrict any use of the information to criminally investigate or prosecute any alcohol or drug abuse patient.[facility] the event this information is protected by the Federal Confidentiality of Alcohol and Drug Abuse Patient Records regulations: The Federal rules restrict any use of the information to criminally investigate or prosecute any alcohol or drug abuse patient.[facility] the event this information is protected by the Federal Confidentiality of Alcohol and Drug Abuse Patient Records regulations: The Federal rules restrict any use of the information to criminally investigate or prosecute any alcohol or drug abuse patient.[facility] the event this information is protected by the Federal Confidentiality of Alcohol and Drug Abuse Patient Records regulations: The Federal rules restrict any use of the information to criminally investigate or prosecute any alcohol or drug abuse patient.[facility] the event this information is protected by the Federal Confidentiality of Alcohol and Drug Abuse Patient Records regulations: The Federal rules restrict any use of the information to criminally investigate or prosecute any alcohol or drug abuse patient.[facility] the event this information is protected by the Federal Confidentiality of Alcohol and Drug Abuse Patient Records regulations: The Federal rules restrict any use of the information to criminally investigate or prosecute any alcohol or drug abuse patient.[facility] the event this information is protected by the Federal Confidentiality of Alcohol and Drug Abuse Patient Records regulations: The Federal rules restrict any use of the information to criminally investigate or prosecute any alcohol or drug abuse patient.[facility] the event this information is protected by the Federal Confidentiality of Alcohol and Drug Abuse Patient Records regulations: The Federal rules restrict any use of the information to criminally investigate or prosecute any alcohol or drug abuse patient.[facility] the event this information is protected by the Federal Confidentiality of Alcohol and Drug Abuse Patient Records regulations: The Federal rules restrict any use of the information to criminally investigate or prosecute any alcohol or drug abuse patient.[facility] the event this information is protected by the Federal Confidentiality of Alcohol and Drug Abuse Patient Records regulations: The Federal rules restrict any use of the information to criminally investigate or prosecute any alcohol or drug abuse patient.[facility] the event this information is protected by the Federal Confidentiality of Alcohol and Drug Abuse Patient Records regulations: The Federal rules restrict any use of the information to criminally investigate or prosecute any alcohol or drug abuse patient.[facility] the event this information is protected by the Federal Confidentiality of Alcohol and Drug Abuse Patient Records regulations: The Federal rules restrict any use of the information to criminally investigate or prosecute any alcohol or drug abuse patient.[facility] the event this information is protected by the Federal Confidentiality of Alcohol and Drug Abuse Patient Records regulations: The Federal rules restrict any use of the information to criminally investigate or prosecute any alcohol or drug abuse patient.[facility] the event this information is protected by the Federal Confidentiality of Alcohol and Drug Abuse Patient Records regulations: The Federal rules restrict any use of the information to criminally investigate or prosecute any alcohol or drug abuse patient.[facility] the event this information is protected by the Federal Confidentiality of Alcohol and Drug Abuse Patient Records regulations: The Federal rules restrict any use of the information to criminally investigate or prosecute any alcohol or drug abuse patient.[facility] the event this information is protected by the Federal Confidentiality of Alcohol and Drug Abuse Patient Records regulations: The Federal rules restrict any use of the information to criminally investigate or prosecute any alcohol or drug abuse patient.[facility] the event this information is protected by the Federal Confidentiality of Alcohol and Drug Abuse Patient Records regulations: The Federal rules restrict any use of the information to criminally investigate or prosecute any alcohol or drug abuse patient.[facility] the event this information is protected by the Federal Confidentiality of Alcohol and Drug Abuse Patient Records regulations: The Federal rules restrict any use of the information to criminally investigate or prosecute any alcohol or drug abuse patient.[facility] the event this information is protected by the Federal Confidentiality of Alcohol and Drug Abuse Patient Records regulations: The Federal rules restrict any use of the information to criminally investigate or prosecute any alcohol or drug abuse patient.[facility] the event this information is protected by the Federal Confidentiality of Alcohol and Drug Abuse Patient Records regulations: The Federal rules restrict any use of the information to criminally investigate or prosecute any alcohol or drug abuse patient.[facility] the event this information is protected by the Federal Confidentiality of Alcohol and Drug Abuse Patient Records regulations: The Federal rules restrict any use of the information to criminally investigate or prosecute any alcohol or drug abuse patient.[facility] the event this information is protected by the Federal Confidentiality of Alcohol and Drug Abuse Patient Records regulations: The Federal rules restrict any use of the information to criminally investigate or prosecute any alcohol or drug abuse patient.[facility] the event this information is protected by the Federal Confidentiality of Alcohol and Drug Abuse Patient Records regulations: The Federal rules restrict any use of the information to criminally investigate or prosecute any alcohol or drug abuse patient.[facility] HospitalIn the event this information is protected by the Federal Confidentiality of Alcohol and Drug Abuse Patient Records regulations: The Federal rules restrict any use of the information to criminally investigate or prosecute any alcohol or drug abuse patient.[facility] HospitalIn the event this information is protected by the Federal Confidentiality of Alcohol and Drug Abuse Patient Records regulations: The Federal rules restrict any use of the information to criminally investigate or prosecute any alcohol or drug abuse patient.[facility] HospitalIn the event this information is protected by the Federal Confidentiality of Alcohol and Drug Abuse Patient Records regulations: The Federal rules restrict any use of the information to criminally investigate or prosecute any alcohol or drug abuse patient.[facility] HospitalIn the event this information is protected by the Federal Confidentiality of Alcohol and Drug Abuse Patient Records regulations: The Federal rules restrict any use of the information to criminally investigate or prosecute any alcohol or drug abuse patient.[facility] HospitalIn the event this information is protected by the Federal Confidentiality of Alcohol and Drug Abuse Patient Records regulations: The Federal rules restrict any use of the information to criminally investigate or prosecute any alcohol or drug abuse patient.[facility] HospitalIn the event this information is protected by the Federal Confidentiality of Alcohol and Drug Abuse Patient Records regulations: The Federal rules restrict any use of the information to criminally investigate or prosecute any alcohol or drug abuse patient.[facility] HospitalIn the event this information is protected by the Federal Confidentiality of Alcohol and Drug Abuse Patient Records regulations: The Federal rules restrict any use of the information to criminally investigate or prosecute any alcohol or drug abuse patient.[facility] HospitalIn the event this information is protected by the Federal Confidentiality of Alcohol and Drug Abuse Patient Records regulations: The Federal rules restrict any use of the information to criminally investigate or prosecute any alcohol or drug abuse patient.[facility] HospitalIn the event this information is protected by the Federal Confidentiality of Alcohol and Drug Abuse Patient Records regulations: The Federal rules restrict any use of the information to criminally investigate or prosecute any alcohol or drug abuse patient.[facility] HospitalIn the event this information is protected by the Federal Confidentiality of Alcohol and Drug Abuse Patient Records regulations: The Federal rules restrict any use of the information to criminally investigate or prosecute any alcohol or drug abuse patient.[facility] HospitalIn the event this information is protected by the Federal Confidentiality of Alcohol and Drug Abuse Patient Records regulations: The Federal rules restrict any use of the information to criminally investigate or prosecute any alcohol or drug abuse patient.[facility] HospitalIn the event this information is protected by the Federal Confidentiality of Alcohol and Drug Abuse Patient Records regulations: The Federal rules restrict any use of the information to criminally investigate or prosecute any alcohol or drug abuse patient.[facility] HospitalIn the event this information is protected by the Federal Confidentiality of Alcohol and Drug Abuse Patient Records regulations: The Federal rules restrict any use of the information to criminally investigate or prosecute any alcohol or drug abuse patient.[facility] HospitalIn the event this information is protected by the Federal Confidentiality of Alcohol and Drug Abuse Patient Records regulations: The Federal rules restrict any use of the information to criminally investigate or prosecute any alcohol or drug abuse patient.[facility] HospitalIn the event this information is protected by the Federal Confidentiality of Alcohol and Drug Abuse Patient Records regulations: The Federal rules restrict any use of the information to criminally investigate or prosecute any alcohol or drug abuse patient.[facility] HospitalIn the event this information is protected by the Federal Confidentiality of Alcohol and Drug Abuse Patient Records regulations: The Federal rules restrict any use of the information to criminally investigate or prosecute any alcohol or drug abuse patient.[facility] HospitalIn the event this information is protected by the Federal Confidentiality of Alcohol and Drug Abuse Patient Records regulations: The Federal rules restrict any use of the information to criminally investigate or prosecute any alcohol or drug abuse patient.[facility] HospitalIn the event this information is protected by the Federal Confidentiality of Alcohol and Drug Abuse Patient Records regulations: The Federal rules restrict any use of the information to criminally investigate or prosecute any alcohol or drug abuse patient.[facility] HospitalIn the event this information is protected by the Federal Confidentiality of Alcohol and Drug Abuse Patient Records regulations: The Federal rules restrict any use of the information to criminally investigate or prosecute any alcohol or drug abuse patient.[facility] HospitalIn the event this information is protected by the Federal Confidentiality of Alcohol and Drug Abuse Patient Records regulations: The Federal rules restrict any use of the information to criminally investigate or prosecute any alcohol or drug abuse patient.[facility] HospitalIn the event this information is protected by the Federal Confidentiality of Alcohol and Drug Abuse Patient Records regulations: The Federal rules restrict any use of the information to criminally investigate or prosecute any alcohol or drug abuse patient.[facility] HospitalIn the event this information is protected by the Federal Confidentiality of Alcohol and Drug Abuse Patient Records regulations: The Federal rules restrict any use of the information to criminally investigate or prosecute any alcohol or drug abuse patient.[facility] HospitalIn the event this information is protected by the Federal Confidentiality of Alcohol and Drug Abuse Patient Records regulations: The Federal rules restrict any use of the information to criminally investigate or prosecute any alcohol or drug abuse patient.[facility] HospitalIn the event this information is protected by the Federal Confidentiality of Alcohol and Drug Abuse Patient Records regulations: The Federal rules restrict any use of the information to criminally investigate or prosecute any alcohol or drug abuse patient.[facility] HospitalIn the event this information is protected by the Federal Confidentiality of Alcohol and Drug Abuse Patient Records regulations: The Federal rules restrict any use of the information to criminally investigate or prosecute any alcohol or drug abuse patient.[facility] HospitalIn the event this information is protected by the Federal Confidentiality of Alcohol and Drug Abuse Patient Records regulations: The Federal rules restrict any use of the information to criminally investigate or prosecute any alcohol or drug abuse patient.[facility] HospitalIn the event this information is protected by the Federal Confidentiality of Alcohol and Drug Abuse Patient Records regulations: The Federal rules restrict any use of the information to criminally investigate or prosecute any alcohol or drug abuse patient.[facility] HospitalIn the event this information is protected by the Federal Confidentiality of Alcohol and Drug Abuse Patient Records regulations: The Federal rules restrict any use of the information to criminally investigate or prosecute any alcohol or drug abuse patient.[facility] HospitalIn the event this information is protected by the Federal Confidentiality of Alcohol and Drug Abuse Patient Records regulations: The Federal rules restrict any use of the information to criminally investigate or prosecute any alcohol or drug abuse patient.[facility] HospitalIn the event this information is protected by the Federal Confidentiality of Alcohol and Drug Abuse Patient Records regulations: The Federal rules restrict any use of the information to criminally investigate or prosecute any alcohol or drug abuse patient.[facility] HospitalIn the event this information is protected by the Federal Confidentiality of Alcohol and Drug Abuse Patient Records regulations: The Federal rules restrict any use of the information to criminally investigate or prosecute any alcohol or drug abuse patient.[facility] HospitalIn the event this information is protected by the Federal Confidentiality of Alcohol and Drug Abuse Patient Records regulations: The Federal rules restrict any use of the information to criminally investigate or prosecute any alcohol or drug abuse patient.[facility] HospitalIn the event this information is protected by the Federal Confidentiality of Alcohol and Drug Abuse Patient Records regulations: The Federal rules restrict any use of the information to criminally investigate or prosecute any alcohol or drug abuse patient.[facility] HospitalIn the event this information is protected by the Federal Confidentiality of Alcohol and Drug Abuse Patient Records regulations: The Federal rules restrict any use of the information to criminally investigate or prosecute any alcohol or drug abuse patient.[facility] HospitalIn the event this information is protected by the Federal Confidentiality of Alcohol and Drug Abuse Patient Records regulations: The Federal rules restrict any use of the information to criminally investigate or prosecute any alcohol or drug abuse patient.[facility] HospitalIn the event this information is protected by the Federal Confidentiality of Alcohol and Drug Abuse Patient Records regulations: The Federal rules restrict any use of the information to criminally investigate or prosecute any alcohol or drug abuse patient.[facility] HospitalIn the event this information is protected by the Federal Confidentiality of Alcohol and Drug Abuse Patient Records regulations: The Federal rules restrict any use of the information to criminally investigate or prosecute any alcohol or drug abuse patient.[facility] HospitalIn the event this information is protected by the Federal Confidentiality of Alcohol and Drug Abuse Patient Records regulations: The Federal rules restrict any use of the information to criminally investigate or prosecute any alcohol or drug abuse patient.[facility] HospitalIn the event this information is protected by the Federal Confidentiality of Alcohol and Drug Abuse Patient Records regulations: The Federal rules restrict any use of the information to criminally investigate or prosecute any alcohol or drug abuse patient.[facility] HospitalIn the event this information is protected by the Federal Confidentiality of Alcohol and Drug Abuse Patient Records regulations: The Federal rules restrict any use of the information to criminally investigate or prosecute any alcohol or drug abuse patient.[facility] HospitalIn the event this information is protected by the Federal Confidentiality of Alcohol and Drug Abuse Patient Records regulations: The Federal rules restrict any use of the information to criminally investigate or prosecute any alcohol or drug abuse patient.[facility] HospitalIn the event this information is protected by the Federal Confidentiality of Alcohol and Drug Abuse Patient Records regulations: The Federal rules restrict any use of the information to criminally investigate or prosecute any alcohol or drug abuse patient.[facility] HospitalIn the event this information is protected by the Federal Confidentiality of Alcohol and Drug Abuse Patient Records regulations: The Federal rules restrict any use of the information to criminally investigate or prosecute any alcohol or drug abuse patient.[facility] HospitalIn the event this information is protected by the Federal Confidentiality of Alcohol and Drug Abuse Patient Records regulations: The Federal rules restrict any use of the information to criminally investigate or prosecute any alcohol or drug abuse patient.[facility] HospitalIn the event this information is protected by the Federal Confidentiality of Alcohol and Drug Abuse Patient Records regulations: The Federal rules restrict any use of the information to criminally investigate or prosecute any alcohol or drug abuse patient.[facility] HospitalIn the event this information is protected by the Federal Confidentiality of Alcohol and Drug Abuse Patient Records regulations: The Federal rules restrict any use of the information to criminally investigate or prosecute any alcohol or drug abuse patient.[facility] Reason for Visit (unrecogniz ed section [...] shot received 02/05/2022 Reason Onset Date Comments Population Health Navigation Outreach 03/28/2022 [employer] care gap [...] NEW HIGH MDM 60-74 MINUTES Luis M Johsnon MD [address] [place] [address] Referral ID Status Reason Start Date Expiration Date Visits Requested Visits Authorized [id number] Authorized PCP Requested Referral 09/30/2022 09/30/2023 1 1 Reason Onset Date Comments Refill Request 12/27/2022 Reason Comments New Pain Specialty Diagnoses / Procedures Referred By Contac t Referred To Contact Orthopedics Diagnoses Pain of right hip Procedures CONSULT TO ORTHOPAEDICS OFFICE/OUTPATIENT NEW HIGH MDM 60-74 MINUTES Luis M Jonhson MD [address] [place] [address] Referral ID Status Reason Start Date Expiration Date V isits Requested Visits Authorized [id number] Closed PCP Requested Referral 09/30/2022 09/30/2023 1 [...] 45 MINS Stormy Hamilton PA-C [address] [place] [address] [facility] [address] [place] [address] Referral ID Status Reason Start Date Expiration Date Visits Requested Visits Authorized [id number] Authorized Auto-Generat ed Referral 05/12/2022 05/11/2023 99 [...] Reason Onset Date Comments Refill Request 10/26/2024 Reason Comments letter for post office Reason Comments Patient Question (name brand Lidoderm ) Lidocane patches Care Teams (unrecognized sec tion and content) Slide Forming Machine Tender Relationship Specialty Start Date End Date Luis M Johnson MD [address] [place] [address] PCP - General Family Practice 10/02/16 Slide Forming Machine Tender Relationship Specialty Start Date End Date Luis M Johnson MD [address] [place] [address] [place] [address] PCP - General Family Practice 10/02/16 Slide Forming Machine Tender Relationship Specialty Start Date End Date Luis M Johnson MD [address] [place] [address] [place] [address] PCP - General Family Practice 10/02/16 Slide Forming Machine Tender Relationship Specialty Start Date End Date Luis M Johnson MD [address] [place] [address] [place] [address] PCP - General Family Practice 10/02/16 Slide Forming Machine Tender Relationship Specialty Start Date End Date Luis M Johnson MD [address] [place] [address] [place] [address] PCP - General Family Practice 10/02/16 Slide Forming Machine Tender Relationship Specialty Start Date End Date Luis M Johnson MD [address] [place] [address] [place] [address] PCP - General Family Practice 10/02/16 Slide Forming Machine Tender Relationship Specialty Start Date End Date Luis M Johnson MD [address] [place] [address] [place] [address] PCP - General Family Practice 10/02/16 Slide Forming Machine Tender Relationship Specialty Start Date End Date Luis M Johnson MD [address] [place] [address] [place] [address] PCP - General Family Practice 10/02/16 Slide Forming Machine Tender Relationship Specialty Start Date End Date Luis M Johnson MD [address] [place] [address] PCP - General Family Practice 10/02/16 Slide Forming Machine Tender Relationship Specialty Start Date End Date Luis M Johnson MD [address] [place] [address] PCP - General Family Practice 10/02/16 Slide Forming Machine Tender Relationship Specialty Start Date End Date Luis M Johnson MD [facility] [place] [address] PCP - General Family Medicine 10/02/16 Slide Forming Machine Tender Relationship Specialty Start Date End Date Luis M Johnson MD [address] [place] [address], [place] [address] PCP - General Family Medicine 10/02/16 Slide Forming Machine Tender Relationship Specialty Start Date End Date Luis M Johnson MD [facility] [place] [address] PCP - General Family Medicine 10/02/16 Slide Forming Machine Tender Relationship Specialty Start Date End Date Luis M Johnson MD [facility] [place] [address] PCP - General Family Medicine 10/02/16 Slide Forming Machine Tender Relationship Specialty Start Date End Date Luis M Johnson MD [facility] [place] [address] PCP - General Family Medicine 10/02/16 Slide Forming Machine Tender Relationship Specialty Start Date End Date Luis M Johnson MD [facility] [place] [address] PCP - General Family Medicine 10/02/16 Slide Forming Machine Tender Relationship Specialty Start Date End Date Luis M Johnson MD [address] [place] [address], [place] [address] PCP - General Family Medicine 10/02/16 Slide Forming Machine Tender Relationship Specialty Start Date End Date Luis M Johnson MD [address] [place] [address] PCP - General Family Medicine 10/02/16 Slide Forming Machine Tender Relationship Specialty Start Date End Date Luis M Johnson MD [address] [place] [address] PCP - General Family Medicine 10/02/16 Slide Forming Machine Tender Relationship Specialty Start Date End Date Luis M Johnson MD [address] [place] [address] PCP - General Family Medicine 10/02/16 Slide Forming Machine Tender Relationship Specialty Start Date End Date Luis M Johnson MD [address] [place] [address] PCP - General Family Medicine 10/02/16 Slide Forming Machine Tender Relationship Specialty Start Date End Date Luis M Johnson MD [address] [place] [address] PCP - General Family Medicine 10/02/16 Slide Forming Machine Tender Relationship Specialty Start Date End Date Luis M Johnson MD [address] [place] [address] PCP - General Family Medicine 10/02/16 Slide Forming Machine Tender Relationship Specialty Start Date End Date Luis M Johnson MD [address] [place] [address] PCP - General Family Medicine 10/02/16 Slide Forming Machine Tender Relationship Specialty Start Date End Date Luis M Johnson MD [address] [place] [address] PCP - General Family Medicine 10/02/16 Slide Forming Machine Tender Relationship Specialty Start Date End Date Luis M Johnson MD [address] [place] [address] PCP - General Family Medicine 10/02/16 Slide Forming Machine Tender Relationship Specialty Start Date End Date Luis M Johnson MD [address] [place] [address] PCP - General Family Medicine 10/02/16 Slide Forming Machine Tender Relationship Specialty Start Date End Date Luis M Johnson MD [address] [place] [address] PCP - General Family Medicine 10/02/16 Slide Forming Machine Tender Relationship Specialty Start Date End Date Luis M Johnson MD [address] [place] [address] PCP - General Family Medicine 10/02/16 Slide Forming Machine Tender Relationship Specialty Start Date End Date Luis M Johnson MD [address] [place] [address] PCP - General Family Medicine 10/02/16 Slide Forming Machine Tender Relationship Specialty Start Date End Date Luis M Johnson MD [address] [place] [address] PCP - General Family Medicine 10/02/16 Slide Forming Machine Tender Relationship Specialty Start Date End Date Luis M Johnson MD [address] [place] [address] PCP - General Family Medicine 10/02/16 Slide Forming Machine Tender Relationship Specialty Start Date End Date Luis M Johnson MD [address] [place] [address] PCP - General Family Medicine 10/02/16 Slide Forming Machine Tender Relationship Specialty Start Date End Date Luis M Johnson MD [address] [place] [address] PCP - General Family Medicine 10/02/16 Slide Forming Machine Tender Relationship Specialty Start Date End Date Luis M Johnson MD [address] [place] [address] PCP - General Family Medicine 10/02/16 Slide Forming Machine Tender Relationship Specialty Start Date End Date Luis M Johnson MD [address] [place] [address] PCP - General Family Medicine 10/02/16 Slide Forming Machine Tender Relationship Specialty Start Date End Date Luis M Johnson MD [address] [place] [address] PCP - General Family Medicine 10/02/16 Slide Forming Machine Tender Relationship Specialty Start Date End Date Luis M Johnson MD [address] [place] [address] PCP - General Family Medicine 10/02/16 Slide Forming Machine Tender Relationship Specialty Start Date End Date Luis M Johnson MD [address] [place] [address] PCP - General Family Medicine 10/02/16 Slide Forming Machine Tender Relationship Specialty Start Date End Date Luis M Johnson MD [address] [place] [address] PCP - General Family Medicine 10/02/16 Teddy Cox APRN.CQ DEVELOPER [address] [place] [address] [facility] 04/17/24 Summer Telles PA-C [address] [place] [address] [facility] 04/17/24 Slide Forming Machine Tender Relationship Specialty Start Date End Date Luis M Johsnon MD [address] [place] [address] PCP - General Family Medicine 10/02/16 Teddy Cox APRN.CQ DEVELOPER [address] [place] [address] [facility] 04/17/24 Summer Telles PA-C [address] [place] [address] [facility] 04/17/24 Slide Forming Machine Tender Relationship Specialty Start Date End Date Luis M Johnson MD [address] [place] [address] PCP - General Family Medicine 10/02/16 Teddy Cox APRN.CQ DEVELOPER [address] [place] [address] [facility] 04/17/24 Summer Telles PA-C [address] [place] [address] [facility] 04/17/24 Slide Forming Machine Tender Relationship Specialty Start Date End Date Luis M Johnson MD [address] [place] [address] PCP - General Family Medicine 10/02/16 Teddy Cox APRN.CQ DEVELOPER [address] [place] [address] [facility] 04/17/24 Summer Telles PA-C [address] [place] [address] [facility] 04/17/24 Slide Forming Machine Tender Relationship Specialty Start Date End Date Luis M Johnson MD [address] [place] [address] PCP - General Family Medicine 10/02/16 Teddy Cox APRN.CQ DEVELOPER [address] [place] [address] [facility] 04/17/24 Summer Telles PA-C [address] [place] [address] [facility] 04/17/24 Slide Forming Machine Tender Relationship Specialty Start Date End Date Luis M Johnson MD [address] [place] [address] PCP - General Family Medicine 10/02/16 Teddy Cox, LENKA.CQ DEVELOPER [address] [place] [address] [facility] 04/17/24 Summer Telles PA-C [address] [place] [address] [facility] 04/17/24 Slide Forming Machine Tender Relationship Specialty Start Date End Date Luis M Johnson MD [address] [place] [address] PCP - General Family Medicine 08/16/24 Teddy Cox APRN.CQ DEVELOPER [address] [place] [address] [facility] 04/17/24 Summer Telles PA-C [address] [place] [address] [facility] 04/17/24 Slide Forming Machine Tender Relationship Specialty Start Date End Date Luis M Johnson MD [address] [place] [address] PCP - General Family Medicine 08/16/24 Teddy Cox APRN.CQ DEVELOPER [address] [place] [address] [facility] 10/11/24 Summer Telles PA-C [address] [place] [address] [facility] 10/11/24 Slide Forming Machine Tender Relationship Specialty Start Date End Date Luis M Johnson MD [address] [place] [address] PCP - General Family Medicine 08/16/24 Teddy Cox ORACLE APPLICATION ARCHITECT.CQ DEVELOPER [facility] [place] [address] [facility] 10/11/24 Summer Telles PA-C [address] [place] [address] [facility] 10/11/24 Slide Forming Machine Tender Relationship Specialty Start Date End Date Luis M Johnson MD [address] [place] [address] PCP - General Family Medicine 08/16/24 Teddy Cox APRN.CQ DEVELOPER [address] [place] [id number] [facility] 10/11/24 Summer Telles PA-C [address] [place] [id number] [facility] 10/11/24 Team Status: Active Member Role/Relationship Status [...] December 02, 2024 End: December 02, 2024 Slide Forming Machine Tender Relationship Specialty Start Date End Date Luis M Johnson MD [address] [place], [place] [phone] PCP - General Family Medicine 08/16/24 Teddy Cox APRN.CQ DEVELOPER [address] [place], [place] [phone] [facility] 10/11/24 Summer Telles PA-C [address] [place] [id number] [facility] 10/11/24 Team Status: Inactive Member Role/Relationship Status Dates Dr. Luis M Johnson MD Primary Care Provider Active Start: December 02, 2024 End: December 02, 2024 Dr. Tunde Resendiz MD Attending Provider Active Start: December 02, 2024 End: December 02, 2024 Dr. Tunde Resendiz MD Referring Provider Active Start: December 02, 2024 End: December 02, 2024 Team Status: Inactive Member Role/Relationship Status Dates Dr. Luis M Johnson MD Primary Care Provider Active Start: December 02, 2024 End: December 02, 2024 Dr. Luis M Johnson MD Referring Provider Active Start: December 02, 2024 End: December 02, 2024 Dr. Tunde Resendiz MD Attending Provider Active Start: December 02, 2024 End: December 02, 2024 Team Status: Active Member Role/Relationship Status Dates Dr. Luis M Johnson MD Primary Care Provider Active Team Status: Inactive Member Role/Relationship Status Dates Dr. Luis M Johnson MD Primary Care Provider Active Start: December 09, 2024 End: December 09, 2024 Dr. Luis M Johnson MD Referring Provider Active Start: December 09, 2024 End: December 09, 2024 Dr. Tunde Resendiz MD Attending Provider Active Start: December 09, 2024 End: December 09, 2024 Slide Forming Machine Tender Relationship Specialty Start Date End Date Luis M Johnson MD [address] [place] [id number] PCP - General Family Medicine 08/16/24 Teddy Cox APRN.CNP [address] [place] [id number] [facility] 10/11/24 Summer Telles PA-C [address] [place] [address] [id number] [facility] 10/11/24 INFORMATION SOURCE (unrecogn ized section and content) DATE CREATED AUTHOR 10/18/2021 [facility] DATE CREATED AUTHOR AUTHOR'S ORGANIZ ATION 12/17/2024 [facility] DATE CREATED AUTHOR AUTHOR'S ORGANIZ ATION 01/14/2025 [facility] Goals (unrecognized section and content) Goals may [...] BE BASED ON THE PRIMARY CLINICAL RECORDS. [employer] provides no warranty or guarantee of the accuracy or completeness of information in this document.
== END | disposition home or self-care (01) ==
PROVIDERS: PCP Family Medicine; Referring Provider Anesthesiology Pain Medicine; Visit Provider Anesthesiology Pain Medicine
DX: M51.369 Other intervertebral disc degeneration, lumbar region without mention of lumbar back pain or lower extremity pain (principal); M25.519 Pain in unspecified shoulder; M25.559 Pain in unspecified hip
CPT/HCPCS: 72100; 73030; 73521